=== PATIENT | male | born 1945 | race Caucasian/White ===

== ENCOUNTER 2023-05-31 07:35 | Outpatient (RCR) | payer MEDICARE, SELFPAY ==
[2023-05-31] MEDS: [UNRECOGNIZED DRUG - OTHER] 100 MG IV (08:18)
== END 2023-06-12 23:59 | disposition home or self-care (01) ==
LOC: OID 07:35
PROVIDERS: ATTENDING PHYSICIAN Specialist; FAMILY PHYSICIAN Internal Medicine
DX: Z94.0 Kidney transplant status (principal); T86.10 Unspecified complication of kidney transplant; Y93.89 Activity, other specified
CPT/HCPCS: 96365; J0485

== ENCOUNTER → 2023-06-28 06:15 | Outpatient (REF) | payer MEDICARE, SELFPAY | LOC: RAD 06:15 | PROVIDERS: ATTENDING PHYSICIAN Internal Medicine Critical Care Medicine | DX: R93.89 Abnormal findings on diagnostic imaging of other specified body structures (principal) | CPT/HCPCS: 71250 ==

== ENCOUNTER 2023-06-28 07:35 | Outpatient (RCR) | payer MEDICARE, SELFPAY ==
[2023-06-28 08:00] VITALS: BP 142/85
[2023-06-28] MEDS: [UNRECOGNIZED DRUG - OTHER] 100 MG IV (08:11)
== END 2023-06-28 11:14 | disposition home or self-care (01) ==
LOC: OID 07:35
PROVIDERS: ATTENDING PHYSICIAN Specialist; FAMILY PHYSICIAN Internal Medicine
DX: Z94.0 Kidney transplant status (principal); T86.10 Unspecified complication of kidney transplant; Y93.89 Activity, other specified
CPT/HCPCS: 96365; J0485

== ENCOUNTER → 2023-07-02 06:22 | Outpatient (REF) | payer MEDICARE, SELFPAY ==
[2023-07-02 06:57] LABS: % Basophils 1.3 % (0-2); % Immature Granulocytes 4.4 % (0-0.5); % Lymphocytes 13.6 % (20.5-51.1); % Monocytes 14.3 % (1.7-9.3); % Neutrophils 62.4 % (42.2-75.2); Absolute Basophils 0.1 10^3/uL (0-0.2); Absolute Eosinophils 0.3 10^3/uL (0-0.7); Absolute Immature Granulocytes 0.3 10^3/uL (0-0.05); Absolute Monocytes 1.1 10^3/uL (0.1-0.6); Absolute Neutrophils 4.7 10^3/uL (1.4-6.5); Hematocrit 45.9 % (39.0-52.0); Hemoglobin 15.4 g/dL (13.0-18.0); Mean Corp Hgb Conc. 33.6 g/dL (33.0-37.0); Mean Corpuscular Hgb 30.4 pg (27.0-31.0); Mean Corpuscular Volume 90.7 fL (80.0-94.0); Mean Platelet Volume 10.1 fL (7.4-10.4); Nucleated Red Blood Cells % 0 % (-); Platelet Count 167 10^3/uL (130-400); Red Blood Cell Count 5.06 10^6/uL (4.70-6.10); Red Cell Dist. Width 13.6 % (11.5-14.5); White Blood Cell Count 7.6 10^3/uL (4.8-10.8)
[2023-07-02 08:08] LABS: Protein/creatinine Ratio 5.2; Urine Protein 217 mg/dl
[2023-07-02 08:23] LABS: ALT (SGPT) 27 U/L (0-50); AST (SGOT) 35 U/L (17-59); Albumin 3.4 g/dl (3.5-5.0); Alkaline Phosphatase 50 U/L (38-126); Blood Urea Nitrogen 21 mg/dl (9-20); Calcium 9.3 mg/dl (8.4-10.2); Carbon Dioxide 25 mmol/L (22-30); Chloride 105 mmol/L (98-107); Glucose 88 mg/dl (70-99); Sodium 137 mmol/L (135-145); Total Bilirubin 0.6 mg/dl (0.2-1.3); Total Protein 5.6 g/dl (6.3-8.2); eGFR > 60.00
== END ==
LOC: REG 06:22
PROVIDERS: ATTENDING PHYSICIAN Internal Medicine Nephrology; FAMILY PHYSICIAN Internal Medicine; REFERRING PHYSICIAN Specialist
DX: T86.10 Unspecified complication of kidney transplant (principal)
CPT/HCPCS: 36415; 80053; 82570; 84156; 85025

== ENCOUNTER 2023-07-22 17:47 | Emergency (ER) | payer MEDICARE, SELFPAY ==
[2023-07-22 17:52] VITALS: BP 147/100
[2023-07-22 18:24] LABS: % Basophils 0.5 % (0-2); % Eosinophils 0.2 % (0-6); % Lymphocytes 3.1 % (20.5-51.1); % Monocytes 11.5 % (1.7-9.3); % Neutrophils 78.7 % (42.2-75.2); Absolute Basophils 0.1 10^3/uL (0-0.2); Absolute Immature Granulocytes 0.8 10^3/uL (0-0.05); Absolute Lymphocytes 0.4 10^3/uL (1.2-3.4); Absolute Monocytes 1.5 10^3/uL (0.1-0.6); Absolute Neutrophils 10.3 10^3/uL (1.4-6.5); Hematocrit 46.3 % (39.0-52.0); Hemoglobin 15.9 g/dL (13.0-18.0); Mean Corp Hgb Conc. 34.3 g/dL (33.0-37.0); Mean Corpuscular Hgb 30.3 pg (27.0-31.0); Mean Corpuscular Volume 88.4 fL (80.0-94.0); Nucleated Red Blood Cells % 0 % (-); Red Blood Cell Count 5.24 10^6/uL (4.70-6.10); Red Cell Dist. Width 13.5 % (11.5-14.5)
[2023-07-22 18:28] LABS: Lactic Acid 1.2 mmol/L (0.7-2.0)
[2023-07-22 18:30] LABS: ALT (SGPT) 41 U/L (0-50); AST (SGOT) 35 U/L (17-59); Albumin 3.8 g/dl (3.5-5.0); Alkaline Phosphatase 74 U/L (38-126); Blood Urea Nitrogen 23 mg/dl (9-20); Calcium 9.5 mg/dl (8.4-10.2); Carbon Dioxide 25 mmol/L (22-30); Chloride 104 mmol/L (98-107); Glucose 114 mg/dl (70-99); Potassium 3.9 mmol/L (3.5-5.1); Sodium 138 mmol/L (135-145); Total Bilirubin 0.6 mg/dl (0.2-1.3); Total Protein 6.2 g/dl (6.3-8.2); eGFR > 60.00
[2023-07-22 18:33] LABS: COVID-19 Antigen Negative (Negative)
[2023-07-22 18:44] LABS: Mean Platelet Volume 10.5 fL (7.4-10.4); Platelet Count 213 10^3/uL (130-400)
--- NOTE | 2023-07-22 22:26 | ED.GENMED ---
History of Present Illness
General
Chief Complaint: Fever
Source: patient
Exam Limitations: none
Time Seen by Provider: 07/22/23 22:05
Nursing documentation reviewed up to this point in time: agreed with
Travel History
Have you had any contact with someone who has COVID-19?: No
Do you have any symptoms of coronavirus? Fever > 100 degrees, chills, cough, shortness of breath, sore throat, loss of taste or smell, muscle aches, or headache?: Yes
Symptoms:: fever
History of Present Illness
History of Present Illness:
Patient with history of kidney transplant 5 years ago, presents to ED secondary to sudden onset of fever starting this afternoon, along with intermittent cough. Denies headache. Denies dizziness. Denies sore throat. Denies chest pain or
shortness of breath. Denies nausea, vomiting, or diarrhea. Denies loss of appetite. Patient unsure of recent sick contact. Denies recent travel. Denies recent change in medications or diet.
Past History
Past History
ED Past Medical History: Arrthythmia, HTN, Renal failure, Valvular disease and Other
ED Past Surgical History: Cardiac and Other
Social History
Tobacco: Non-smoker
Alcohol: None
Drug: None
Personal:
Living: with family
Review of Systems
Review of Systems
Allergies reviewed?: Yes
All Other Systems: ROS reviewed and negative except as documented in HPI and ROS
Constitutional: Reports fever
EENT: Reports no symptoms
Respiratory: Reports cough; Denies trouble breathing
Cardiac: Reports no symptoms; Denies chest pain
ABD/GI: Reports no symptoms; Denies nausea, vomiting or diarrhea
: Reports no symptoms
Musculoskeletal: Reports no symptoms
Skin: Reports no symptoms
Neurological: Reports no symptoms; Denies dizzy or headache
Phy Exam
Physical Exam
Physical Exam:
Physical Exam
General: no apparent distress, not acutely ill. febrile.
Head: nc/at. eomi
Neck: supple. no meningeal signs.
Heart: s1/s2 regular rate and rhythm, no murmur. equal radial pulses.
Lungs: no acute respiratory distress. clear bilaterally
Abdomen: normal bowel sounds. not tender.
Neuro: alert and oriented. no focal neurological deficits
Skin: no rash
Psychiatric: well kept. interactive and cooperative
Extremities: no edema. no calf tenderness.
Course
Orders/Labs/Results
Orders:
Orders
07/22/23 18:05
COVID-19 Antigen Urgent
Source: Nasal Swab
Complete Blood Count/With Diff Urgent
Comprehensive Metabolic Panel Urgent
Lactic Acid Urgent
Blood Culture Urgent
HOSSEIN Source: Blood/Venous
Specimen Description:
Influenza A+B Rapid Molecular Urgent
HOSSEIN Source: Nasal Swab
Specimen Description:
07/22/23 22:34
Oseltamivir Phosphate [Tamiflu] 75 mg PO NOW STA
07/22/23 22:35
Acetaminophen [Tylenol] 650 mg PO NOW STA
Abnormal Lab Results
07/22/23
18:05
WBC 13.0 H 10^3/uL
(4.8-10.8)
MPV 10.5 H fL
(7.4-10.4)
Abs Immat Gran (auto) 0.8 H 10^3/uL
(0-0.05)
Absolute Neuts (auto) 10.3 H 10^3/uL
(1.4-6.5)
Absolute Lymphs (auto) 0.4 L 10^3/uL
(1.2-3.4)
Absolute Monos (auto) 1.5 H 10^3/uL
(0.1-0.6)
Immature Gran % 6.0 H %
(0-0.5)
Neutrophils % 78.7 H %
(42.2-75.2)
Lymphocytes % 3.1 L %
(20.5-51.1)
Monocytes % 11.5 H %
(1.7-9.3)
BUN 23 H mg/dl
(9-20)
Glucose 114 H mg/dl
(70-99)
Total Protein 6.2 L g/dl
(6.3-8.2)
07/22/23 18:05
07/22/23 18:05
Vital Signs
Initial and Last Documented VS:
Initial Vital Signs
Temp Pulse Resp BP Pulse Ox
100.1 F 97 18 147/100 98
07/22/23 17:52 07/22/23 17:52 07/22/23 17:52 07/22/23 17:52 07/22/23 17:52
Last Documented Vital Signs
Temp Pulse Resp BP Pulse Ox
100.1 F 101 18 147/87 97
07/22/23 22:42 07/22/23 22:42 07/22/23 22:42 07/22/23 22:42 07/22/23 22:42
MDM/Problems Addressed
MDM/Problems Addressed:
Influenza positive. Otherwise, patient is hemodynamically stable, without evidence of dehydration nor any respiratory distress. Patient is a candidate for Tamiflu, which will be started.
*Critical Care Note
Total Time (30-74mins, 75-104mins- exclusive of procedures): Not Applicable
ED Attending Note
-
Portions of this chart may have been created with voice recognition software.� Occasional wrong word or��sound alike� substitutions may have occurred due to the inherent limitations of voice recognition software.
Discharge Plan
Departure
Patient Disposition: Home (Routine Discharge)
Date of Disposition: 07/22/23
Time of Disposition: 22:35
Patient with high blood pressure during this ER visit?: Yes
Condition: Good
Discharge Problem:
Influenza
Instructions: Flu, Adult (DC)
Prescriptions:
New
oseltamivir [Tamiflu] 75 mg capsule
75 mg PO BID Qty: 9 0RF
No Action
Eliquis 5 MG tablet
5 mg PO BID
metoprolol tartrate 25 MG tablet
25 mg PO BID
mycophenolate sodium 180 MG tablet,delayed release (DR/EC)
720 mg PO BID
amlodipine 5 mg tablet
5 mg PO DAILY
cholecalciferol (vitamin D3) [Vitamin D3] 10 mcg (400 unit) Capsule
10 mcg PO DAILY
losartan 50 mg Tablet
50 mg PO BID
aspirin 325 mg Tablet
325 mg PO BIDPRN PRN (Reason: mild pain)
Theragen Tablet
1 tab PO DAILY
prednisone 2.5 mg Tablet
2.5 mg PO BID
doxazosin 2 mg Tablet
2 mg PO BID
belatacept 250 mg Recon Soln
0 mg IV QMONTH
Patient Comments:
07/22/2023, pt. unsure of dose.
Activity Restrictions/Additional Instructions:
As discussed, please follow-up with your primary care physician with any further concerns. Your prescription has been sent electronically to [facility] pharmacy in [place].
Interventions
Interventions:
*Risk Screen - Suicide Last Done: 07/22/23 17:52
*General Assessment Last Done: 07/22/23 17:52
*Neglect/Abuse Screening Last Done: 07/22/23 17:52
*ED COVID-19 Vaccine History Last Done: 07/22/23 17:52
*Nursing Disposition Last Done: 07/22/23 23:20
ED- Neurological Assessment Last Done: 07/22/23 22:42
ED-Skin Assessment Last Done: 07/22/23 22:42
Discharge Date and Time
Discharge Date/Time: 07/22/23 23:21
[2023-07-22 22:42] VITALS: BP 147/87
[2023-07-22] MEDS: TAMIFLU 75 MG PO (23:12)
[2023-07-22] MEDS: TYLENOL 650 MG PO (23:12)
== END 2023-07-22 23:21 | disposition home or self-care (01) ==
LOC: EMR 17:47
PROVIDERS: Emergency Medicine; EMERGENCY PHYSICIAN Emergency Medicine; FAMILY PHYSICIAN Internal Medicine
DX: J11.1 Influenza due to unidentified influenza virus with other respiratory manifestations (principal); I10 Essential (primary) hypertension; Z11.52 Encounter for screening for COVID-19
CPT/HCPCS: 99283; 80053; 83605; 85025; 87040; 87502; 87811

== ENCOUNTER → 2023-07-24 14:12 | Outpatient (REF) | payer MEDICARE, SELFPAY | LOC: RAD 14:12 | PROVIDERS: ATTENDING PHYSICIAN Internal Medicine | DX: J11.1 Influenza due to unidentified influenza virus with other respiratory manifestations (principal) | CPT/HCPCS: 71046 ==

== ENCOUNTER → 2023-08-01 06:22 | Outpatient (REF) | payer MEDICARE, SELFPAY ==
[2023-08-01 07:18] LABS: % Basophils 0.6 % (0-2); % Eosinophils 2.1 % (0-6); % Immature Granulocytes 7.7 % (0-0.5); % Lymphocytes 5.7 % (20.5-51.1); % Monocytes 16.6 % (1.7-9.3); % Neutrophils 67.3 % (42.2-75.2); Absolute Basophils 0.1 10^3/uL (0-0.2); Absolute Eosinophils 0.2 10^3/uL (0-0.7); Absolute Immature Granulocytes 0.6 10^3/uL (0-0.05); Absolute Lymphocytes 0.4 10^3/uL (1.2-3.4); Absolute Monocytes 1.3 10^3/uL (0.1-0.6); Absolute Neutrophils 5.2 10^3/uL (1.4-6.5); Hematocrit 42.6 % (39.0-52.0); Hemoglobin 14.3 g/dL (13.0-18.0); Mean Corp Hgb Conc. 33.6 g/dL (33.0-37.0); Mean Corpuscular Hgb 29.9 pg (27.0-31.0); Mean Corpuscular Volume 89.1 fL (80.0-94.0); Mean Platelet Volume 10.3 fL (7.4-10.4); Nucleated Red Blood Cells % 0 % (-); Platelet Count 285 10^3/uL (130-400); Red Blood Cell Count 4.78 10^6/uL (4.70-6.10); Red Cell Dist. Width 13.4 % (11.5-14.5); White Blood Cell Count 7.7 10^3/uL (4.8-10.8)
[2023-08-01 07:38] LABS: Protein/creatinine Ratio 3.8; Urine Protein 135 mg/dl
[2023-08-01 07:41] LABS: ALT (SGPT) 70 U/L (0-50); AST (SGOT) 58 U/L (17-59); Albumin 3.2 g/dl (3.5-5.0); Alkaline Phosphatase 82 U/L (38-126); Blood Urea Nitrogen 18 mg/dl (9-20); Carbon Dioxide 23 mmol/L (22-30); Chloride 107 mmol/L (98-107); Glucose 108 mg/dl (70-99); Potassium 3.9 mmol/L (3.5-5.1); Sodium 137 mmol/L (135-145); Total Bilirubin 0.6 mg/dl (0.2-1.3); Total Protein 5.6 g/dl (6.3-8.2); eGFR > 60.00
== END ==
LOC: REG 06:22
PROVIDERS: ATTENDING PHYSICIAN Internal Medicine Nephrology; FAMILY PHYSICIAN Internal Medicine; REFERRING PHYSICIAN Specialist
DX: Z79.899 Other long term (current) drug therapy (principal); Z94.0 Kidney transplant status
CPT/HCPCS: 36415; 80053; 82570; 84156; 85025

== ENCOUNTER 2023-08-02 08:26 | Outpatient (RCR) | payer MEDICARE, SELFPAY ==
[2023-08-02] MEDS: [UNRECOGNIZED DRUG - OTHER] 100 MG IV (08:55)
[2023-08-02 08:59] VITALS: BP 133/83
== END 2023-08-02 14:49 | disposition home or self-care (01) ==
LOC: OID 08:26
PROVIDERS: ATTENDING PHYSICIAN Specialist; FAMILY PHYSICIAN Internal Medicine
DX: Z94.0 Kidney transplant status (principal); T86.10 Unspecified complication of kidney transplant; Y93.89 Activity, other specified
CPT/HCPCS: 96365; J0485

== ENCOUNTER → 2023-08-30 07:29 | Outpatient (REF) | payer MEDICARE, SELFPAY ==
[2023-08-30 09:02] LABS: Hematocrit 32.5 % (39.0-52.0); Hemoglobin 10.1 g/dL (13.0-18.0); Mean Corp Hgb Conc. 31.1 g/dL (33.0-37.0); Mean Corpuscular Hgb 28.8 pg (27.0-31.0); Mean Corpuscular Volume 92.6 fL (80.0-94.0); Mean Platelet Volume 9.6 fL (7.4-10.4); Platelet Count 345 10^3/uL (130-400); Red Blood Cell Count 3.51 10^6/uL (4.70-6.10); Red Cell Dist. Width 14.7 % (11.5-14.5); White Blood Cell Count 8.6 10^3/uL (4.8-10.8)
[2023-08-30 09:25] LABS: Absolute Neutrophils -Man Diff 5.8 10^3/uL (1.4-6.5); Band Neutrophils 13 % (0-3); Eosinophils 5 % (0-6); Lymphocytes 2 % (20-51); Metamyelocytes 8 % (-); Monocytes 17 % (2-9); Segmented Neutrophils 55 % (42-75); Urine Protein 115 mg/dl
[2023-08-30 09:26] LABS: Normal RBC Morphology Yes; Platelets Checked Yes; Total Cells Counted 100
[2023-08-30 09:29] LABS: ALT (SGPT) 49 U/L (0-50); AST (SGOT) 44 U/L (17-59); Albumin 3.3 g/dl (3.5-5.0); Alkaline Phosphatase 82 U/L (38-126); Blood Urea Nitrogen 18 mg/dl (9-20); Carbon Dioxide 24 mmol/L (22-30); Chloride 107 mmol/L (98-107); Glucose 109 mg/dl (70-99); Sodium 136 mmol/L (135-145); Total Bilirubin 0.3 mg/dl (0.2-1.3); Total Protein 5.6 g/dl (6.3-8.2); eGFR > 60.00
[2023-08-30 09:41] LABS: NT-proBNP 1930 pg/ml
[2023-08-30 10:00] LABS: TSH Reflex To Free T4 5.51 uIU/ml (0.47-4.68)
[2023-08-30 10:29] LABS: Free T4 0.89 ng/dl (0.78-2.19)
== END ==
LOC: REG 07:29
PROVIDERS: ATTENDING PHYSICIAN Internal Medicine Nephrology; FAMILY PHYSICIAN Internal Medicine
DX: R53.83 Other fatigue (principal); R06.02 Shortness of breath; R00.0 Tachycardia, unspecified; T86.10 Unspecified complication of kidney transplant
CPT/HCPCS: 36415; 80053; 82570; 83880; 84156; 84439; 84443; 85025

== ENCOUNTER 2023-08-30 08:25 | Outpatient (RCR) | payer MEDICARE, SELFPAY ==
[2023-08-30 08:35] VITALS: BP 122/71
[2023-08-30] MEDS: [UNRECOGNIZED DRUG - OTHER] 100 MG IV (08:49)
== END 2023-09-02 13:43 | disposition home or self-care (01) ==
LOC: OID 08:25
PROVIDERS: ATTENDING PHYSICIAN Specialist; FAMILY PHYSICIAN Internal Medicine
DX: Z94.0 Kidney transplant status (principal); T86.10 Unspecified complication of kidney transplant; Y93.89 Activity, other specified
CPT/HCPCS: 96365; J0485

== ENCOUNTER → 2023-09-19 06:22 | Outpatient (REF) | payer MEDICARE, SELFPAY ==
[2023-09-19 07:18] LABS: Hematocrit 37.5 % (39.0-52.0); Hemoglobin 11.6 g/dL (13.0-18.0); Mean Corp Hgb Conc. 30.9 g/dL (33.0-37.0); Mean Corpuscular Hgb 28.1 pg (27.0-31.0); Mean Corpuscular Volume 90.8 fL (80.0-94.0); Mean Platelet Volume 9.8 fL (7.4-10.4); Nucleated Red Blood Cells % 0 % (-); Platelet Count 348 10^3/uL (130-400); Red Blood Cell Count 4.13 10^6/uL (4.70-6.10); Red Cell Dist. Width 14.9 % (11.5-14.5); Reticulocyte Count 2.3 % (0.4-2.8); White Blood Cell Count 8.8 10^3/uL (4.8-10.8)
[2023-09-19 07:46] LABS: Iron 44 ug/dl (49-181)
[2023-09-19 08:01] LABS: Percent Saturation 15 % (20-50); Total Iron Binding Capacity 287 ug/dl (261-462)
[2023-09-19 12:34] LABS: Absolute Neutrophils -Man Diff 5.6 10^3/uL (1.4-6.5); Band Neutrophils 12 % (0-3); Eosinophils 4 % (0-6); Lymphocytes 13 % (20-51); Metamyelocytes 3 % (-); Monocytes 11 % (2-9); Myelocytes 4 % (-); Segmented Neutrophils 52 % (42-75)
[2023-09-19 12:35] LABS: Anisocytosis Slight; Macrocytosis FEW; Normal RBC Morphology No; Platelets Checked YES
[2023-09-19 12:36] LABS: Microcytosis FEW; Ovalocytes FEW; Total Cells Counted 100
== END ==
LOC: REG 06:22
PROVIDERS: ATTENDING PHYSICIAN Internal Medicine
DX: D64.89 Other specified anemias (principal); Z94.0 Kidney transplant status; N40.1 Benign prostatic hyperplasia with lower urinary tract symptoms; R53.83 Other fatigue; R79.89 Other specified abnormal findings of blood chemistry
CPT/HCPCS: 36415; 82728; 83540; 83550; 85025; 85045

== ENCOUNTER → 2023-09-20 06:27 | Outpatient (REF) | payer MEDICARE, SELFPAY ==
[2023-09-20 07:42] LABS: Urine Albumin 1+ (Neg - Trace); Urine Bilirubin Negative (Negative); Urine Character Clear (Clear); Urine Color Yellow; Urine Glucose Negative (Negative); Urine Ketone Negative (Negative); Urine Leukocyte 2+ (Negative); Urine Nitrite Negative (Negative); Urine Occult Blood Negative (Negative); Urine Urobilinogen Negative (Neg - 1+)
[2023-09-20 07:59] LABS: Urine Bacteria Few (Negative); Urine White Cell 90-100 /HPF (0-5)
== END ==
LOC: REG 06:27
PROVIDERS: ATTENDING PHYSICIAN Internal Medicine
DX: R30.0 Dysuria (principal)
CPT/HCPCS: 81003; 81015

== ENCOUNTER 2023-09-27 09:50 | Outpatient (RCR) | payer MEDICARE, SELFPAY ==
[2023-09-27 10:00] VITALS: BP 128/63
[2023-09-27] MEDS: [UNRECOGNIZED DRUG - OTHER] 100 MG IV (10:16)
== END 2023-09-30 08:27 | disposition home or self-care (01) ==
LOC: OID 09:50
PROVIDERS: ATTENDING PHYSICIAN Specialist; FAMILY PHYSICIAN Internal Medicine
DX: Z94.0 Kidney transplant status (principal); T86.10 Unspecified complication of kidney transplant; Y93.89 Activity, other specified
CPT/HCPCS: 96365; J0485

== ENCOUNTER → 2023-10-03 06:18 | Outpatient (REF) | payer MEDICARE, SELFPAY ==
[2023-10-03 07:02] LABS: % Basophils 1.7 % (0-2); % Eosinophils 3.9 % (0-6); % Immature Granulocytes 5.5 % (0-0.5); % Lymphocytes 13.2 % (20.5-51.1); % Monocytes 11.7 % (1.7-9.3); Absolute Basophils 0.1 10^3/uL (0-0.2); Absolute Eosinophils 0.3 10^3/uL (0-0.7); Absolute Immature Granulocytes 0.4 10^3/uL (0-0.05); Absolute Monocytes 0.9 10^3/uL (0.1-0.6); Hematocrit 40.5 % (39.0-52.0); Hemoglobin 12.6 g/dL (13.0-18.0); Mean Corp Hgb Conc. 31.1 g/dL (33.0-37.0); Mean Corpuscular Hgb 28.4 pg (27.0-31.0); Mean Corpuscular Volume 91.4 fL (80.0-94.0); Mean Platelet Volume 9.8 fL (7.4-10.4); Nucleated Red Blood Cells % 0 % (-); Platelet Count 218 10^3/uL (130-400); Red Blood Cell Count 4.43 10^6/uL (4.70-6.10); Red Cell Dist. Width 15.2 % (11.5-14.5); White Blood Cell Count 7.9 10^3/uL (4.8-10.8)
[2023-10-03 07:45] LABS: ALT (SGPT) 23 U/L (0-50); AST (SGOT) 28 U/L (17-59); Albumin 3.7 g/dl (3.5-5.0); Alkaline Phosphatase 71 U/L (38-126); Blood Urea Nitrogen 21 mg/dl (9-20); Calcium 9.3 mg/dl (8.4-10.2); Carbon Dioxide 22 mmol/L (22-30); Chloride 108 mmol/L (98-107); Glucose 99 mg/dl (70-99); Potassium 3.7 mmol/L (3.5-5.1); Sodium 142 mmol/L (135-145); Total Bilirubin 0.4 mg/dl (0.2-1.3); Total Protein 6.1 g/dl (6.3-8.2); eGFR > 60.00
[2023-10-03 07:54] LABS: Protein/creatinine Ratio 3.7; Urine Protein 105 mg/dl
== END ==
LOC: REG 06:18
PROVIDERS: ATTENDING PHYSICIAN Internal Medicine Nephrology; FAMILY PHYSICIAN Internal Medicine; REFERRING PHYSICIAN Specialist
DX: Z94.0 Kidney transplant status (principal); Z79.899 Other long term (current) drug therapy; T86.10 Unspecified complication of kidney transplant
CPT/HCPCS: 36415; 80053; 82570; 84156; 85025

== ENCOUNTER 2023-10-25 08:20 | Outpatient (RCR) | payer MEDICARE, SELFPAY ==
[2023-10-25 08:40] VITALS: BP 146/81
[2023-10-25] MEDS: [UNRECOGNIZED DRUG - OTHER] 100 MG IV (09:03)
== END 2023-11-10 23:59 | disposition home or self-care (01) ==
LOC: OID 08:20
PROVIDERS: ATTENDING PHYSICIAN Specialist; FAMILY PHYSICIAN Internal Medicine
DX: T86.10 Unspecified complication of kidney transplant (principal); Z94.0 Kidney transplant status; D84.9 Immunodeficiency, unspecified
CPT/HCPCS: 96365; J0485

== ENCOUNTER → 2023-10-28 06:21 | Outpatient (REF) | payer MEDICARE, SELFPAY ==
[2023-10-28 07:52] LABS: % Eosinophils 5.7 % (0-6); % Immature Granulocytes 3.6 % (0-0.5); % Lymphocytes 10.6 % (20.5-51.1); % Monocytes 13.7 % (1.7-9.3); % Neutrophils 65.4 % (42.2-75.2); Absolute Basophils 0.1 10^3/uL (0-0.2); Absolute Eosinophils 0.3 10^3/uL (0-0.7); Absolute Immature Granulocytes 0.2 10^3/uL (0-0.05); Absolute Lymphocytes 0.6 10^3/uL (1.2-3.4); Absolute Monocytes 0.7 10^3/uL (0.1-0.6); Absolute Neutrophils 3.4 10^3/uL (1.4-6.5); Hematocrit 44.6 % (39.0-52.0); Hemoglobin 14.3 g/dL (13.0-18.0); Mean Corp Hgb Conc. 32.1 g/dL (33.0-37.0); Mean Corpuscular Hgb 28.2 pg (27.0-31.0); Mean Platelet Volume 10.8 fL (7.4-10.4); Nucleated Red Blood Cells % 0 % (-); Platelet Count 188 10^3/uL (130-400); Red Blood Cell Count 5.07 10^6/uL (4.70-6.10); Red Cell Dist. Width 15.4 % (11.5-14.5); White Blood Cell Count 5.3 10^3/uL (4.8-10.8)
[2023-10-28 08:55] LABS: ALT (SGPT) 23 U/L (0-50); AST (SGOT) 39 U/L (17-59); Albumin 3.7 g/dl (3.5-5.0); Alkaline Phosphatase 71 U/L (38-126); Blood Urea Nitrogen 21 mg/dl (9-20); Calcium 9.1 mg/dl (8.4-10.2); Carbon Dioxide 24 mmol/L (22-30); Chloride 104 mmol/L (98-107); Glucose 97 mg/dl (70-99); Potassium 3.4 mmol/L (3.5-5.1); Sodium 139 mmol/L (135-145); Total Bilirubin 0.4 mg/dl (0.2-1.3); Total Protein 6.4 g/dl (6.3-8.2); eGFR > 60.00
[2023-10-28 09:03] LABS: Protein/creatinine Ratio 5.6; Urine Protein 407 mg/dl
== END ==
LOC: REG 06:21
PROVIDERS: ATTENDING PHYSICIAN Internal Medicine Nephrology; FAMILY PHYSICIAN Internal Medicine; REFERRING PHYSICIAN Specialist
DX: Z79.899 Other long term (current) drug therapy (principal); Z94.0 Kidney transplant status; T86.10 Unspecified complication of kidney transplant
CPT/HCPCS: 36415; 80053; 82570; 84156; 85025

== ENCOUNTER 2023-11-22 08:24 | Outpatient (RCR) | payer MEDICARE, SELFPAY ==
[2023-11-22 08:35] VITALS: BP 138/83
[2023-11-22] MEDS: [UNRECOGNIZED DRUG - OTHER] 100 MG IV (08:47)
== END 2023-11-25 13:12 | disposition home or self-care (01) ==
LOC: OID 08:24
PROVIDERS: ATTENDING PHYSICIAN Specialist; FAMILY PHYSICIAN Internal Medicine
DX: Z94.0 Kidney transplant status (principal); T86.10 Unspecified complication of kidney transplant; Y93.89 Activity, other specified; D84.9 Immunodeficiency, unspecified
CPT/HCPCS: 96365; J0485

== ENCOUNTER → 2023-11-25 06:17 | Outpatient (REF) | payer MEDICARE, SELFPAY ==
[2023-11-25 07:22] LABS: % Basophils 1.2 % (0-2); % Eosinophils 4.9 % (0-6); % Immature Granulocytes 2.2 % (0-0.5); % Lymphocytes 13.8 % (20.5-51.1); % Monocytes 13.1 % (1.7-9.3); % Neutrophils 64.8 % (42.2-75.2); Absolute Basophils 0.1 10^3/uL (0-0.2); Absolute Eosinophils 0.4 10^3/uL (0-0.7); Absolute Immature Granulocytes 0.2 10^3/uL (0-0.05); Absolute Neutrophils 4.9 10^3/uL (1.4-6.5); Hematocrit 44.4 % (39.0-52.0); Mean Corp Hgb Conc. 31.5 g/dL (33.0-37.0); Mean Corpuscular Hgb 27.8 pg (27.0-31.0); Mean Corpuscular Volume 88.3 fL (80.0-94.0); Nucleated Red Blood Cells % 0 % (-); Platelet Count 177 10^3/uL (130-400); Red Blood Cell Count 5.03 10^6/uL (4.70-6.10); White Blood Cell Count 7.6 10^3/uL (4.8-10.8)
[2023-11-25 07:46] LABS: Protein/creatinine Ratio 3.8; Urine Protein 175 mg/dl
[2023-11-25 08:02] LABS: ALT (SGPT) 21 U/L (0-50); AST (SGOT) 28 U/L (17-59); Alkaline Phosphatase 67 U/L (38-126); Blood Urea Nitrogen 26 mg/dl (9-20); Calcium 9.2 mg/dl (8.4-10.2); Carbon Dioxide 23 mmol/L (22-30); Chloride 106 mmol/L (98-107); Glucose 105 mg/dl (70-99); Potassium 3.5 mmol/L (3.5-5.1); Sodium 141 mmol/L (135-145); Total Bilirubin 0.3 mg/dl (0.2-1.3); Total Protein 6.3 g/dl (6.3-8.2); eGFR > 60.00
== END ==
LOC: REG 06:17
PROVIDERS: ATTENDING PHYSICIAN Internal Medicine Nephrology; FAMILY PHYSICIAN Internal Medicine; REFERRING PHYSICIAN Specialist
DX: T86.10 Unspecified complication of kidney transplant (principal); Z79.899 Other long term (current) drug therapy; Z94.0 Kidney transplant status
CPT/HCPCS: 36415; 80053; 82570; 84156; 85025

== ENCOUNTER 2023-12-20 09:52 | Outpatient (RCR) | payer MEDICARE, SELFPAY ==
[2023-12-20 10:00] VITALS: BP 132/76
[2023-12-20] MEDS: [UNRECOGNIZED DRUG - OTHER] 100 MG IV (10:35)
== END 2023-12-23 09:02 | disposition home or self-care (01) ==
LOC: OID 09:52
PROVIDERS: ATTENDING PHYSICIAN Specialist; FAMILY PHYSICIAN Internal Medicine
DX: Z94.0 Kidney transplant status (principal); T86.10 Unspecified complication of kidney transplant; Y93.89 Activity, other specified; D84.9 Immunodeficiency, unspecified
CPT/HCPCS: 96365; J0485

== ENCOUNTER → 2023-12-26 06:17 | Outpatient (REF) | payer MEDICARE, SELFPAY ==
[2023-12-26 07:49] LABS: % Basophils 1.2 % (0-2); % Eosinophils 4.1 % (0-6); % Immature Granulocytes 2.5 % (0-0.5); % Lymphocytes 14.3 % (20.5-51.1); % Monocytes 13.7 % (1.7-9.3); % Neutrophils 64.2 % (42.2-75.2); Absolute Basophils 0.1 10^3/uL (0-0.2); Absolute Eosinophils 0.3 10^3/uL (0-0.7); Absolute Immature Granulocytes 0.2 10^3/uL (0-0.05); Absolute Lymphocytes 1.2 10^3/uL (1.2-3.4); Absolute Monocytes 1.1 10^3/uL (0.1-0.6); Absolute Neutrophils 5.2 10^3/uL (1.4-6.5); Hematocrit 46.2 % (39.0-52.0); Hemoglobin 14.9 g/dL (13.0-18.0); Mean Corp Hgb Conc. 32.3 g/dL (33.0-37.0); Mean Corpuscular Hgb 28.3 pg (27.0-31.0); Mean Corpuscular Volume 87.7 fL (80.0-94.0); Mean Platelet Volume 10.3 fL (7.4-10.4); Nucleated Red Blood Cells % 0 % (-); Platelet Count 193 10^3/uL (130-400); Red Blood Cell Count 5.27 10^6/uL (4.70-6.10); Red Cell Dist. Width 16.5 % (11.5-14.5); White Blood Cell Count 8.1 10^3/uL (4.8-10.8)
[2023-12-26 08:29] LABS: Protein/creatinine Ratio 4.8; Urine Protein 222 mg/dl
[2023-12-26 08:35] LABS: ALT (SGPT) 22 U/L (0-50); AST (SGOT) 26 U/L (17-59); Albumin 3.7 g/dl (3.5-5.0); Alkaline Phosphatase 59 U/L (38-126); Blood Urea Nitrogen 26 mg/dl (9-20); Calcium 9.5 mg/dl (8.4-10.2); Carbon Dioxide 25 mmol/L (22-30); Chloride 108 mmol/L (98-107); Glucose 94 mg/dl (70-99); Potassium 3.7 mmol/L (3.5-5.1); Sodium 140 mmol/L (135-145); Total Bilirubin 0.4 mg/dl (0.2-1.3); Total Protein 5.9 g/dl (6.3-8.2); eGFR > 60.00
== END ==
LOC: REG 06:17
PROVIDERS: ATTENDING PHYSICIAN Internal Medicine Nephrology; FAMILY PHYSICIAN Internal Medicine
DX: T86.10 Unspecified complication of kidney transplant (principal)
CPT/HCPCS: 36415; 80053; 82570; 84156; 85025

== ENCOUNTER 2024-01-16 09:14 | Outpatient (RCR) | payer MEDICARE, SELFPAY ==
[2024-01-16 09:30] VITALS: BP 130/69
[2024-01-16] MEDS: [UNRECOGNIZED DRUG - OTHER] 100 MG IV (09:39)
== END 2024-01-17 09:03 | disposition home or self-care (01) ==
LOC: OID 09:14
PROVIDERS: ATTENDING PHYSICIAN Specialist; FAMILY PHYSICIAN Internal Medicine
DX: Z94.0 Kidney transplant status (principal); T86.10 Unspecified complication of kidney transplant; Y93.89 Activity, other specified; D84.9 Immunodeficiency, unspecified
CPT/HCPCS: 96365; J0485

== ENCOUNTER → 2024-01-27 06:20 | Outpatient (REF) | payer MEDICARE, SELFPAY ==
[2024-01-27 07:37] LABS: % Basophils 1.2 % (0-2); % Eosinophils 3.5 % (0-6); % Immature Granulocytes 3.5 % (0-0.5); % Monocytes 11.7 % (1.7-9.3); % Neutrophils 68.1 % (42.2-75.2); Absolute Basophils 0.1 10^3/uL (0-0.2); Absolute Eosinophils 0.3 10^3/uL (0-0.7); Absolute Immature Granulocytes 0.3 10^3/uL (0-0.05); Absolute Neutrophils 5.5 10^3/uL (1.4-6.5); Hemoglobin 14.6 g/dL (13.0-18.0); Mean Corp Hgb Conc. 32.4 g/dL (33.0-37.0); Mean Corpuscular Hgb 29.2 pg (27.0-31.0); Mean Platelet Volume 10.4 fL (7.4-10.4); Nucleated Red Blood Cells % 0 % (-); Platelet Count 193 10^3/uL (130-400); Red Cell Dist. Width 15.7 % (11.5-14.5); White Blood Cell Count 8.1 10^3/uL (4.8-10.8)
[2024-01-27 08:12] LABS: ALT (SGPT) 23 U/L (0-50); AST (SGOT) 29 U/L (17-59); Albumin 3.8 g/dl (3.5-5.0); Alkaline Phosphatase 59 U/L (38-126); Blood Urea Nitrogen 22 mg/dl (9-20); Calcium 9.5 mg/dl (8.4-10.2); Carbon Dioxide 24 mmol/L (22-30); Chloride 108 mmol/L (98-107); Glucose 102 mg/dl (70-99); Potassium 3.7 mmol/L (3.5-5.1); Sodium 143 mmol/L (135-145); Total Bilirubin 0.5 mg/dl (0.2-1.3); Total Protein 5.9 g/dl (6.3-8.2); eGFR > 60.00
[2024-01-27 08:34] LABS: Protein/creatinine Ratio 4.5; Urine Protein 197 mg/dl
== END ==
LOC: REG 06:20
PROVIDERS: ATTENDING PHYSICIAN Internal Medicine Nephrology; FAMILY PHYSICIAN Internal Medicine
DX: T86.10 Unspecified complication of kidney transplant (principal)
CPT/HCPCS: 36415; 80053; 82570; 84156; 85025

== ENCOUNTER → 2024-02-03 06:25 | Outpatient (REF) | payer MEDICARE, SELFPAY ==
[2024-02-03 09:11] LABS: PSA, Total - Screen 0.93 ng/ml (0.0-4.0)
== END ==
LOC: REG 06:25
PROVIDERS: ATTENDING PHYSICIAN Specialist; FAMILY PHYSICIAN Internal Medicine
DX: Z12.5 Encounter for screening for malignant neoplasm of prostate (principal)
CPT/HCPCS: 36415; G0103

== ENCOUNTER 2024-02-14 08:25 | Outpatient (RCR) | payer MEDICARE, SELFPAY ==
[2024-02-14] MEDS: [UNRECOGNIZED DRUG - OTHER] 100 MG IV (08:54)
== END 2024-02-14 10:38 | disposition home or self-care (01) ==
LOC: OID 08:25
PROVIDERS: ATTENDING PHYSICIAN Specialist; FAMILY PHYSICIAN Internal Medicine
DX: Z94.0 Kidney transplant status (principal); T86.10 Unspecified complication of kidney transplant; Y93.89 Activity, other specified; D84.9 Immunodeficiency, unspecified
CPT/HCPCS: 96365; J0485

== ENCOUNTER → 2024-03-24 06:19 | Outpatient (REF) | payer MEDICARE, SELFPAY ==
[2024-03-24 07:30] LABS: Hematocrit 46.9 % (39.0-52.0); Hemoglobin 15.2 g/dL (13.0-18.0); Mean Corp Hgb Conc. 32.4 g/dL (33.0-37.0); Mean Corpuscular Hgb 29.8 pg (27.0-31.0); Mean Platelet Volume 9.8 fL (7.4-10.4); Platelet Count 187 10^3/uL (130-400); Red Cell Dist. Width 14.1 % (11.5-14.5); White Blood Cell Count 8.2 10^3/uL (4.8-10.8)
[2024-03-24 07:42] LABS: ALT (SGPT) 30 U/L (0-50); AST (SGOT) 28 U/L (17-59); Albumin 3.6 g/dl (3.5-5.0); Alkaline Phosphatase 53 U/L (38-126); Blood Urea Nitrogen 22 mg/dl (9-20); Calcium 9.5 mg/dl (8.4-10.2); Carbon Dioxide 28 mmol/L (22-30); Chloride 106 mmol/L (98-107); Glucose 104 mg/dl (70-99); Potassium 3.7 mmol/L (3.5-5.1); Sodium 142 mmol/L (135-145); Total Bilirubin 0.4 mg/dl (0.2-1.3); Total Protein 5.8 g/dl (6.3-8.2); eGFR > 60.00
[2024-03-24 08:00] LABS: Protein/creatinine Ratio 5.2; Urine Protein 410 mg/dl
[2024-03-24 08:04] LABS: % Basophils 1.1 % (0-2); % Eosinophils 3.1 % (0-6); % Immature Granulocytes 5.3 % (0-0.5); % Lymphocytes 11.5 % (20.5-51.1); % Monocytes 11.4 % (1.7-9.3); % Neutrophils 67.6 % (42.2-75.2); Absolute Basophils 0.1 10^3/uL (0-0.2); Absolute Eosinophils 0.3 10^3/uL (0-0.7); Absolute Immature Granulocytes 0.4 10^3/uL (0-0.05); Absolute Lymphocytes 0.9 10^3/uL (1.2-3.4); Absolute Monocytes 0.9 10^3/uL (0.1-0.6); Absolute Neutrophils 5.5 10^3/uL (1.4-6.5); Nucleated Red Blood Cells % 0 % (-)
== END ==
LOC: REG 06:19
PROVIDERS: ATTENDING PHYSICIAN Internal Medicine Nephrology; FAMILY PHYSICIAN Internal Medicine; OTHER PHYSICIAN Specialist
DX: Z94.0 Kidney transplant status (principal); Z79.899 Other long term (current) drug therapy; T86.10 Unspecified complication of kidney transplant
CPT/HCPCS: 36415; 80053; 82570; 84156; 85025

== ENCOUNTER 2024-04-10 10:42 | Outpatient (RCR) | payer MEDICARE, SELFPAY ==
[2024-03-13 08:30] VITALS: BP 141/69
[2024-03-13] MEDS: [UNRECOGNIZED DRUG - OTHER] 100 MG IV (08:42)
[2024-04-10 10:45] VITALS: BP 139/65
[2024-04-10] MEDS: [UNRECOGNIZED DRUG - OTHER] 100 MG IV (11:01)
== END 2024-04-11 23:59 | disposition home or self-care (01) ==
LOC: OID 10:42
PROVIDERS: ATTENDING PHYSICIAN Specialist; FAMILY PHYSICIAN Internal Medicine
DX: T86.10 Unspecified complication of kidney transplant (principal); Y93.89 Activity, other specified; D84.9 Immunodeficiency, unspecified; Z94.0 Kidney transplant status
CPT/HCPCS: 96365; J0485

== ENCOUNTER → 2024-05-01 06:24 | Outpatient (REF) | payer MEDICARE, SELFPAY ==
[2024-05-01 07:25] LABS: % Basophils 1.4 % (0-2); % Immature Granulocytes 2.6 % (0-0.5); % Lymphocytes 12.9 % (20.5-51.1); % Monocytes 12.8 % (1.7-9.3); % Neutrophils 66.3 % (42.2-75.2); Absolute Basophils 0.1 10^3/uL (0-0.2); Absolute Eosinophils 0.3 10^3/uL (0-0.7); Absolute Immature Granulocytes 0.2 10^3/uL (0-0.05); Absolute Lymphocytes 0.9 10^3/uL (1.2-3.4); Absolute Monocytes 0.8 10^3/uL (0.1-0.6); Absolute Neutrophils 4.4 10^3/uL (1.4-6.5); Hematocrit 46.9 % (39.0-52.0); Hemoglobin 15.3 g/dL (13.0-18.0); Mean Corp Hgb Conc. 32.6 g/dL (33.0-37.0); Mean Corpuscular Hgb 30.2 pg (27.0-31.0); Mean Corpuscular Volume 92.5 fL (80.0-94.0); Mean Platelet Volume 10.5 fL (7.4-10.4); Nucleated Red Blood Cells % 0 % (-); Platelet Count 180 10^3/uL (130-400); Red Blood Cell Count 5.07 10^6/uL (4.70-6.10); Red Cell Dist. Width 13.6 % (11.5-14.5); White Blood Cell Count 6.6 10^3/uL (4.8-10.8)
[2024-05-01 07:32] LABS: ALT (SGPT) 26 U/L (0-50); AST (SGOT) 30 U/L (17-59); Albumin 3.5 g/dl (3.5-5.0); Alkaline Phosphatase 50 U/L (38-126); Blood Urea Nitrogen 17 mg/dl (9-20); Calcium 9.2 mg/dl (8.4-10.2); Carbon Dioxide 26 mmol/L (22-30); Chloride 106 mmol/L (98-107); Glucose 94 mg/dl (70-99); Potassium 3.5 mmol/L (3.5-5.1); Sodium 139 mmol/L (135-145); Total Bilirubin 0.5 mg/dl (0.2-1.3); Total Protein 5.7 g/dl (6.3-8.2); eGFR > 60.00
[2024-05-01 09:36] LABS: Protein/creatinine Ratio 3.7; Urine Protein 118 mg/dl
== END ==
LOC: REG 06:24
PROVIDERS: ATTENDING PHYSICIAN Specialist; FAMILY PHYSICIAN Internal Medicine
DX: T86.10 Unspecified complication of kidney transplant (principal); Z79.899 Other long term (current) drug therapy
CPT/HCPCS: 36415; 80053; 82570; 84156; 85025

== ENCOUNTER 2024-05-08 08:16 | Outpatient (RCR) | payer MEDICARE, SELFPAY ==
[2024-05-08 08:35] VITALS: BP 141/70
[2024-05-08] MEDS: [UNRECOGNIZED DRUG - OTHER] 100 MG IV (08:48)
== END 2024-05-11 11:00 | disposition home or self-care (01) ==
LOC: OID 08:16
PROVIDERS: ATTENDING PHYSICIAN Specialist; FAMILY PHYSICIAN Internal Medicine
DX: T86.10 Unspecified complication of kidney transplant (principal); Y93.89 Activity, other specified; D84.9 Immunodeficiency, unspecified; Z94.0 Kidney transplant status; R80.1 Persistent proteinuria, unspecified
CPT/HCPCS: 96365; J0485

== ENCOUNTER → 2024-05-19 07:42 | Outpatient (REF) | payer MEDICARE, SELFPAY | LOC: RCS 07:42 | PROVIDERS: ATTENDING PHYSICIAN Internal Medicine Cardiovascular Disease; FAMILY PHYSICIAN Internal Medicine | DX: I35.0 Nonrheumatic aortic (valve) stenosis (principal) | CPT/HCPCS: 93306 ==

== ENCOUNTER → 2024-05-30 07:03 | Outpatient (REF) | payer MEDICARE, SELFPAY ==
[2024-05-30 08:30] LABS: % Basophils 1.4 % (0-2); % Eosinophils 2.6 % (0-6); % Immature Granulocytes 1.4 % (0-0.5); % Lymphocytes 13.6 % (20.5-51.1); % Monocytes 12.7 % (1.7-9.3); % Neutrophils 68.3 % (42.2-75.2); Absolute Basophils 0.1 10^3/uL (0-0.2); Absolute Eosinophils 0.2 10^3/uL (0-0.7); Absolute Immature Granulocytes 0.1 10^3/uL (0-0.05); Absolute Lymphocytes 0.9 10^3/uL (1.2-3.4); Absolute Monocytes 0.9 10^3/uL (0.1-0.6); Absolute Neutrophils 4.7 10^3/uL (1.4-6.5); Hematocrit 48.6 % (39.0-52.0); Hemoglobin 15.7 g/dL (13.0-18.0); Mean Corp Hgb Conc. 32.3 g/dL (33.0-37.0); Mean Corpuscular Hgb 29.7 pg (27.0-31.0); Mean Corpuscular Volume 91.9 fL (80.0-94.0); Mean Platelet Volume 10.3 fL (7.4-10.4); Nucleated Red Blood Cells % 0 % (-); Platelet Count 200 10^3/uL (130-400); Red Blood Cell Count 5.29 10^6/uL (4.70-6.10); Red Cell Dist. Width 13.7 % (11.5-14.5); White Blood Cell Count 6.9 10^3/uL (4.8-10.8)
[2024-05-30 08:58] LABS: ALT (SGPT) 23 U/L (0-50); AST (SGOT) 27 U/L (17-59); Albumin 3.7 g/dl (3.5-5.0); Alkaline Phosphatase 57 U/L (38-126); Blood Urea Nitrogen 18 mg/dl (9-20); Calcium 9.3 mg/dl (8.4-10.2); Carbon Dioxide 27 mmol/L (22-30); Chloride 103 mmol/L (98-107); Glucose 92 mg/dl (70-99); Potassium 3.6 mmol/L (3.5-5.1); Sodium 138 mmol/L (135-145); Total Bilirubin 0.6 mg/dl (0.2-1.3); Total Protein 5.9 g/dl (6.3-8.2); eGFR > 60.00
[2024-05-30 09:19] LABS: Urine Protein 222 mg/dl
[2024-05-30 10:37] LABS: Intact PTH 106.2 pg/ml (13.6-85.8)
== END ==
LOC: REG 07:03
PROVIDERS: ATTENDING PHYSICIAN Specialist; FAMILY PHYSICIAN Internal Medicine
DX: Z94.0 Kidney transplant status (principal)
CPT/HCPCS: 36415; 80053; 82570; 83735; 83970; 84156; 85025

== ENCOUNTER 2024-06-05 08:14 | Outpatient (RCR) | payer MEDICARE, SELFPAY ==
[2024-06-05 08:41] VITALS: BP 134/84
[2024-06-05] MEDS: [UNRECOGNIZED DRUG - OTHER] 100 MG IV (09:04)
== END 2024-06-08 09:22 | disposition home or self-care (01) ==
LOC: OID 08:14
PROVIDERS: ATTENDING PHYSICIAN Specialist; FAMILY PHYSICIAN Internal Medicine
DX: T86.10 Unspecified complication of kidney transplant (principal); Y93.89 Activity, other specified; D84.9 Immunodeficiency, unspecified; Z94.0 Kidney transplant status
CPT/HCPCS: 96365; J0485

== ENCOUNTER 2024-07-03 08:20 | Outpatient (RCR) | payer MEDICARE, SELFPAY ==
[2024-07-03 08:50] VITALS: BP 153/79
[2024-07-03] MEDS: [UNRECOGNIZED DRUG - OTHER] 100 MG IV (08:57)
== END 2024-07-03 15:23 | disposition home or self-care (01) ==
LOC: OID 08:20
PROVIDERS: ATTENDING PHYSICIAN Specialist; FAMILY PHYSICIAN Internal Medicine
DX: T86.10 Unspecified complication of kidney transplant (principal); Y93.89 Activity, other specified; D84.9 Immunodeficiency, unspecified; Z94.0 Kidney transplant status
CPT/HCPCS: 96365; J0485

== ENCOUNTER → 2024-07-06 06:20 | Outpatient (REF) | payer MEDICARE, SELFPAY ==
[2024-07-06 08:13] LABS: ALT (SGPT) 119 U/L (0-50); AST (SGOT) 67 U/L (17-59); Albumin 3.1 g/dl (3.5-5.0); Alkaline Phosphatase 91 U/L (38-126); Blood Urea Nitrogen 15 mg/dl (9-20); Calcium 9.3 mg/dl (8.4-10.2); Carbon Dioxide 25 mmol/L (22-30); Chloride 104 mmol/L (98-107); Glucose 101 mg/dl (70-99); Magnesium 1.9 mg/dl (1.6-2.3); Potassium 3.7 mmol/L (3.5-5.1); Sodium 139 mmol/L (135-145); Total Bilirubin 0.9 mg/dl (0.2-1.3); Total Protein 5.5 g/dl (6.3-8.2); eGFR > 60.00
[2024-07-06 08:24] LABS: Protein/creatinine Ratio 4.9; Urine Protein 240 mg/dl
[2024-07-06 08:47] LABS: Hematocrit 42.9 % (39.0-52.0); Hemoglobin 14.3 g/dL (13.0-18.0); Mean Corp Hgb Conc. 33.3 g/dL (33.0-37.0); Mean Corpuscular Volume 89.9 fL (80.0-94.0); Mean Platelet Volume 10.2 fL (7.4-10.4); Platelet Count 335 10^3/uL (130-400); Red Blood Cell Count 4.77 10^6/uL (4.70-6.10); Red Cell Dist. Width 13.4 % (11.5-14.5); White Blood Cell Count 8.1 10^3/uL (4.8-10.8)
[2024-07-06 09:30] LABS: % Basophils 1.1 % (0-2); % Eosinophils 3.8 % (0-6); % Immature Granulocytes 7.4 % (0-0.5); % Lymphocytes 7.2 % (20.5-51.1); % Monocytes 11.2 % (1.7-9.3); % Neutrophils 69.3 % (42.2-75.2); Absolute Basophils 0.1 10^3/uL (0-0.2); Absolute Eosinophils 0.3 10^3/uL (0-0.7); Absolute Immature Granulocytes 0.6 10^3/uL (0-0.05); Absolute Lymphocytes 0.6 10^3/uL (1.2-3.4); Absolute Monocytes 0.9 10^3/uL (0.1-0.6); Absolute Neutrophils 5.6 10^3/uL (1.4-6.5); Nucleated Red Blood Cells % 0 % (-)
[2024-07-07 12:12] LABS: Intact PTH 75.2 pg/ml (13.6-85.8)
== END ==
LOC: REG 06:20
PROVIDERS: ATTENDING PHYSICIAN Specialist; FAMILY PHYSICIAN Internal Medicine
DX: Z94.0 Kidney transplant status (principal)
CPT/HCPCS: 36415; 80053; 82570; 83735; 83970; 84156; 85025

== ENCOUNTER → 2024-07-30 06:22 | Outpatient (REF) | payer MEDICARE, SELFPAY ==
[2024-07-30 07:37] LABS: % Basophils 1.2 % (0-2); % Eosinophils 3.9 % (0-6); % Immature Granulocytes 2.7 % (0-0.5); % Lymphocytes 9.3 % (20.5-51.1); % Monocytes 11.1 % (1.7-9.3); % Neutrophils 71.8 % (42.2-75.2); Absolute Basophils 0.1 10^3/uL (0-0.2); Absolute Eosinophils 0.3 10^3/uL (0-0.7); Absolute Immature Granulocytes 0.2 10^3/uL (0-0.05); Absolute Lymphocytes 0.7 10^3/uL (1.2-3.4); Absolute Monocytes 0.8 10^3/uL (0.1-0.6); Absolute Neutrophils 5.3 10^3/uL (1.4-6.5); Hematocrit 45.9 % (39.0-52.0); Hemoglobin 14.5 g/dL (13.0-18.0); Mean Corp Hgb Conc. 31.6 g/dL (33.0-37.0); Mean Corpuscular Hgb 29.4 pg (27.0-31.0); Mean Corpuscular Volume 92.9 fL (80.0-94.0); Mean Platelet Volume 10.5 fL (7.4-10.4); Nucleated Red Blood Cells % 0 % (-); Platelet Count 196 10^3/uL (130-400); Red Blood Cell Count 4.94 10^6/uL (4.70-6.10); Red Cell Dist. Width 15.3 % (11.5-14.5); White Blood Cell Count 7.4 10^3/uL (4.8-10.8)
[2024-07-30 07:51] LABS: ALT (SGPT) 27 U/L (0-50); AST (SGOT) 27 U/L (17-59); Albumin 3.4 g/dl (3.5-5.0); Alkaline Phosphatase 68 U/L (38-126); Blood Urea Nitrogen 18 mg/dl (9-20); Calcium 9.4 mg/dl (8.4-10.2); Carbon Dioxide 24 mmol/L (22-30); Chloride 107 mmol/L (98-107); Glucose 96 mg/dl (70-99); Magnesium 1.9 mg/dl (1.6-2.3); Potassium 3.6 mmol/L (3.5-5.1); Sodium 139 mmol/L (135-145); Total Bilirubin 0.7 mg/dl (0.2-1.3); Total Protein 5.7 g/dl (6.3-8.2); eGFR > 60.00
[2024-07-30 08:04] LABS: Urine Protein 232 mg/dl
[2024-08-01 13:11] LABS: Intact PTH 91.4 pg/ml (13.6-85.8)
== END ==
LOC: REG 06:22
PROVIDERS: ATTENDING PHYSICIAN Specialist; FAMILY PHYSICIAN Internal Medicine
DX: Z94.0 Kidney transplant status (principal)
CPT/HCPCS: 36415; 80053; 82570; 83735; 83970; 84156; 85025

== ENCOUNTER → 2024-07-31 07:11 | Outpatient (REF) | payer MEDICARE, SELFPAY ==
[2024-07-31 08:00] LABS: 24 Hour Urine Total Volume 1900 ml
[2024-07-31 08:29] LABS: Urine Protein 168 mg/dl (0-12)
== END ==
LOC: REG 07:11
PROVIDERS: ATTENDING PHYSICIAN Specialist; FAMILY PHYSICIAN Internal Medicine
DX: N18.4 Chronic kidney disease, stage 4 (severe) (principal); R80.9 Proteinuria, unspecified; D63.1 Anemia in chronic kidney disease; N40.1 Benign prostatic hyperplasia with lower urinary tract symptoms; N25.81 Secondary hyperparathyroidism of renal origin; Z94.0 Kidney transplant status; R80.1 Persistent proteinuria, unspecified
CPT/HCPCS: 81050; 84156

== ENCOUNTER 2024-07-31 08:15 | Outpatient (RCR) | payer MEDICARE, SELFPAY ==
[2024-07-31 08:20] VITALS: BP 154/75
[2024-07-31] MEDS: [UNRECOGNIZED DRUG - OTHER] 100 MG IV (08:35)
== END 2024-08-10 23:59 | disposition home or self-care (01) ==
LOC: OID 08:15
PROVIDERS: ATTENDING PHYSICIAN Specialist; FAMILY PHYSICIAN Internal Medicine
DX: T86.10 Unspecified complication of kidney transplant (principal); Y93.89 Activity, other specified; D84.9 Immunodeficiency, unspecified; Z94.0 Kidney transplant status
CPT/HCPCS: 96365; J0485

== ENCOUNTER → 2024-08-12 06:23 | Outpatient (REF) | payer MEDICARE, SELFPAY ==
[2024-08-13 12:37] LABS: Rubeola (Measles) IgG Positive
== END ==
LOC: REG 06:23
PROVIDERS: ATTENDING PHYSICIAN Specialist; FAMILY PHYSICIAN Internal Medicine
DX: D84.9 Immunodeficiency, unspecified (principal)
CPT/HCPCS: 36415; 86765

== ENCOUNTER → 2024-08-20 09:37 | Outpatient (REF) | payer MEDICARE, SELFPAY | LOC: HWRAD 09:37 | PROVIDERS: ATTENDING PHYSICIAN Internal Medicine Critical Care Medicine; FAMILY PHYSICIAN Internal Medicine | DX: R93.89 Abnormal findings on diagnostic imaging of other specified body structures (principal) | CPT/HCPCS: 71250 ==

== ENCOUNTER → 2024-08-27 06:23 | Outpatient (REF) | payer MEDICARE, SELFPAY ==
[2024-08-27 07:06] LABS: % Basophils 1.3 % (0-2); % Eosinophils 4.9 % (0-6); % Immature Granulocytes 2.1 % (0-0.5); % Lymphocytes 12.4 % (20.5-51.1); % Neutrophils 67.3 % (42.2-75.2); Absolute Basophils 0.1 10^3/uL (0-0.2); Absolute Eosinophils 0.4 10^3/uL (0-0.7); Absolute Immature Granulocytes 0.2 10^3/uL (0-0.05); Absolute Monocytes 0.9 10^3/uL (0.1-0.6); Absolute Neutrophils 5.2 10^3/uL (1.4-6.5); Hematocrit 42.6 % (39.0-52.0); Mean Corp Hgb Conc. 32.9 g/dL (33.0-37.0); Mean Corpuscular Hgb 30.2 pg (27.0-31.0); Mean Corpuscular Volume 91.8 fL (80.0-94.0); Mean Platelet Volume 9.9 fL (7.4-10.4); Nucleated Red Blood Cells % 0 % (-); Platelet Count 175 10^3/uL (130-400); Red Blood Cell Count 4.64 10^6/uL (4.70-6.10); Red Cell Dist. Width 14.9 % (11.5-14.5); White Blood Cell Count 7.7 10^3/uL (4.8-10.8)
[2024-08-27 07:07] LABS: Urine Albumin 3+ (Neg - Trace); Urine Bilirubin Negative (Negative); Urine Character Clear (Clear); Urine Color Yellow; Urine Glucose Negative (Negative); Urine Ketone Negative (Negative); Urine Leukocyte Negative (Negative); Urine Nitrite Negative (Negative); Urine Occult Blood Negative (Negative); Urine Specific Gravity 1.015 (<1.030); Urine Urobilinogen Negative (Neg - 1+)
[2024-08-27 07:16] LABS: Urine Red Blood Cell 0-2 /HPF (0-2); Urine Squamous Cell 0-2 /LPF (Few)
[2024-08-27 07:17] LABS: Urine Bacteria Few (Negative); Urine White Cell 0-2 /HPF (0-5)
[2024-08-27 07:32] LABS: ALT (SGPT) 26 U/L (0-50); AST (SGOT) 31 U/L (17-59); Albumin 3.3 g/dl (3.5-5.0); Alkaline Phosphatase 66 U/L (38-126); Blood Urea Nitrogen 23 mg/dl (9-20); Calcium 9.1 mg/dl (8.4-10.2); Carbon Dioxide 25 mmol/L (22-30); Chloride 110 mmol/L (98-107); Glucose 91 mg/dl (70-99); Magnesium 1.9 mg/dl (1.6-2.3); Phosphorus 3.5 mg/dl (2.5-4.5); Potassium 3.3 mmol/L (3.5-5.1); Sodium 142 mmol/L (135-145); Total Bilirubin 0.5 mg/dl (0.2-1.3); Total Protein 5.6 g/dl (6.3-8.2); eGFR > 60.00
[2024-08-27 08:14] LABS: Urine Protein 287 mg/dl
[2024-08-27 15:27] LABS: Microalbumin, Random Urine > 57.0 mg/dl (0.6-1.7)
== END ==
LOC: REG 06:23
PROVIDERS: ATTENDING PHYSICIAN Specialist; FAMILY PHYSICIAN Internal Medicine
DX: Z94.0 Kidney transplant status (principal); R80.1 Persistent proteinuria, unspecified
CPT/HCPCS: 36415; 80053; 81003; 81015; 82043; 82570; 83735; 84100; 84156; 85025

== ENCOUNTER 2024-08-28 08:20 | Outpatient (RCR) | payer MEDICARE, SELFPAY ==
[2024-08-28 08:45] VITALS: BP 139/74
[2024-08-28] MEDS: [UNRECOGNIZED DRUG - OTHER] 100 MG IV (08:58)
== END 2024-08-31 08:27 | disposition home or self-care (01) ==
LOC: OID 08:20
PROVIDERS: ATTENDING PHYSICIAN Specialist; FAMILY PHYSICIAN Internal Medicine
DX: T86.10 Unspecified complication of kidney transplant (principal); Y93.89 Activity, other specified; D84.9 Immunodeficiency, unspecified; Z94.0 Kidney transplant status
CPT/HCPCS: 96365; J0485

== ENCOUNTER 2024-09-25 08:17 | Outpatient (RCR) | payer MEDICARE, SELFPAY ==
[2024-09-25 08:30] VITALS: BP 160/86
[2024-09-25] MEDS: [UNRECOGNIZED DRUG - OTHER] 100 MG IV (08:45)
== END 2024-09-28 09:08 | disposition home or self-care (01) ==
LOC: OID 08:17
PROVIDERS: ATTENDING PHYSICIAN Specialist; FAMILY PHYSICIAN Internal Medicine
DX: Z48.22 Encounter for aftercare following kidney transplant (principal); D84.9 Immunodeficiency, unspecified; Z94.0 Kidney transplant status
CPT/HCPCS: 96365; J0485

== ENCOUNTER → 2024-09-29 06:20 | Outpatient (REF) | payer MEDICARE, SELFPAY ==
[2024-09-29 07:13] LABS: % Basophils 0.8 % (0-2); % Eosinophils 2.8 % (0-6); % Immature Granulocytes 1.7 % (0-0.5); % Lymphocytes 9.2 % (20.5-51.1); % Monocytes 12.1 % (1.7-9.3); % Neutrophils 73.4 % (42.2-75.2); Absolute Basophils 0.1 10^3/uL (0-0.2); Absolute Eosinophils 0.2 10^3/uL (0-0.7); Absolute Immature Granulocytes 0.1 10^3/uL (0-0.05); Absolute Lymphocytes 0.8 10^3/uL (1.2-3.4); Absolute Neutrophils 6.1 10^3/uL (1.4-6.5); Hematocrit 42.4 % (39.0-52.0); Hemoglobin 13.9 g/dL (13.0-18.0); Mean Corp Hgb Conc. 32.8 g/dL (33.0-37.0); Mean Corpuscular Volume 91.4 fL (80.0-94.0); Mean Platelet Volume 10.1 fL (7.4-10.4); Nucleated Red Blood Cells % 0 % (-); Platelet Count 187 10^3/uL (130-400); Red Blood Cell Count 4.64 10^6/uL (4.70-6.10); Red Cell Dist. Width 14.2 % (11.5-14.5); White Blood Cell Count 8.3 10^3/uL (4.8-10.8)
[2024-09-29 07:44] LABS: ALT (SGPT) 22 U/L (0-50); AST (SGOT) 25 U/L (17-59); Albumin 3.6 g/dl (3.5-5.0); Alkaline Phosphatase 62 U/L (38-126); Blood Urea Nitrogen 23 mg/dl (9-20); Calcium 9.7 mg/dl (8.4-10.2); Carbon Dioxide 27 mmol/L (22-30); Chloride 109 mmol/L (98-107); Glucose 91 mg/dl (70-99); Magnesium 1.9 mg/dl (1.6-2.3); Potassium 3.6 mmol/L (3.5-5.1); Sodium 143 mmol/L (135-145); Total Bilirubin 0.3 mg/dl (0.2-1.3); Total Protein 5.9 g/dl (6.3-8.2); eGFR 51.13
[2024-09-29 08:20] LABS: Protein/creatinine Ratio 5.1; Urine Protein 353 mg/dl
[2024-09-30 09:24] LABS: Intact PTH 88.4 pg/ml (13.6-85.8)
== END ==
LOC: REG 06:20
PROVIDERS: ATTENDING PHYSICIAN Specialist; FAMILY PHYSICIAN Internal Medicine
DX: Z94.0 Kidney transplant status (principal)
CPT/HCPCS: 36415; 80053; 82570; 83735; 83970; 84156; 85025

== ENCOUNTER 2024-10-23 08:20 | Outpatient (RCR) | payer MEDICARE, SELFPAY ==
[2024-10-23] MEDS: [UNRECOGNIZED DRUG - OTHER] 100 MG IV (09:03)
[2024-10-23 09:06] VITALS: BP 136/79
== END 2024-10-26 08:32 | disposition home or self-care (01) ==
LOC: OID 08:20
PROVIDERS: ATTENDING PHYSICIAN Specialist; FAMILY PHYSICIAN Internal Medicine
DX: T86.10 Unspecified complication of kidney transplant (principal); Y93.89 Activity, other specified; D84.9 Immunodeficiency, unspecified; R80.1 Persistent proteinuria, unspecified; Z94.0 Kidney transplant status
CPT/HCPCS: 96365; J0485

== ENCOUNTER → 2024-10-29 06:28 | Outpatient (REF) | payer MEDICARE, SELFPAY ==
[2024-10-29 07:41] LABS: Hematocrit 41.4 % (39.0-52.0); Hemoglobin 13.6 g/dL (13.0-18.0); Mean Corp Hgb Conc. 32.9 g/dL (33.0-37.0); Mean Corpuscular Hgb 29.9 pg (27.0-31.0); Mean Platelet Volume 10.4 fL (7.4-10.4); Platelet Count 213 10^3/uL (130-400); Red Blood Cell Count 4.55 10^6/uL (4.70-6.10); Red Cell Dist. Width 13.9 % (11.5-14.5); White Blood Cell Count 11.8 10^3/uL (4.8-10.8)
[2024-10-29 07:57] LABS: ALT (SGPT) 30 U/L (0-50); AST (SGOT) 28 U/L (17-59); Albumin 3.4 g/dl (3.5-5.0); Alkaline Phosphatase 58 U/L (38-126); Blood Urea Nitrogen 26 mg/dl (9-20); Calcium 9.2 mg/dl (8.4-10.2); Carbon Dioxide 24 mmol/L (22-30); Chloride 112 mmol/L (98-107); Glucose 101 mg/dl (70-99); Magnesium 1.9 mg/dl (1.6-2.3); Potassium 3.5 mmol/L (3.5-5.1); Sodium 144 mmol/L (135-145); Total Bilirubin 0.3 mg/dl (0.2-1.3); Total Protein 5.7 g/dl (6.3-8.2); eGFR 51.13
[2024-10-29 09:02] LABS: % Basophils 0.6 % (0-2); % Eosinophils 0.6 % (0-6); % Immature Granulocytes 5.8 % (0-0.5); % Lymphocytes 6.3 % (20.5-51.1); % Monocytes 7.4 % (1.7-9.3); % Neutrophils 79.3 % (42.2-75.2); Absolute Basophils 0.1 10^3/uL (0-0.2); Absolute Eosinophils 0.1 10^3/uL (0-0.7); Absolute Immature Granulocytes 0.7 10^3/uL (0-0.05); Absolute Lymphocytes 0.8 10^3/uL (1.2-3.4); Absolute Monocytes 0.9 10^3/uL (0.1-0.6); Absolute Neutrophils 9.4 10^3/uL (1.4-6.5); Nucleated Red Blood Cells % 0 % (-)
[2024-10-29 11:41] LABS: Protein/creatinine Ratio 6.9; Urine Protein 624 mg/dl
[2024-10-31 09:45] LABS: Intact PTH 134.2 pg/ml (13.6-85.8)
== END ==
LOC: REG 06:28
PROVIDERS: ATTENDING PHYSICIAN Specialist; FAMILY PHYSICIAN Internal Medicine
DX: Z94.0 Kidney transplant status (principal)
CPT/HCPCS: 36415; 80053; 82570; 83735; 83970; 84156; 85025

== ENCOUNTER 2024-11-16 06:26 | Day surgery (SDC) | payer MEDICARE, SELFPAY | END 2024-11-16 09:41 | disposition home or self-care (01) | LOC: GI 06:26 | PROVIDERS: ATTENDING PHYSICIAN Student in an Organized Health Care Education/Training Program | DX: Z12.11 Encounter for screening for malignant neoplasm of colon (principal); D12.0 Benign neoplasm of cecum; K57.30 Diverticulosis of large intestine without perforation or abscess without bleeding; K55.20 Angiodysplasia of colon without hemorrhage | CPT/HCPCS: 45385; 88305 ==

== ENCOUNTER 2024-11-17 06:25 | Day surgery (SDC) | payer MEDICARE, SELFPAY | END 2024-11-17 15:17 | disposition home or self-care (01) | LOC: GI 06:25 | PROVIDERS: ATTENDING PHYSICIAN Internal Medicine Gastroenterology | DX: Z12.11 Encounter for screening for malignant neoplasm of colon (principal); K57.30 Diverticulosis of large intestine without perforation or abscess without bleeding; K64.8 Other hemorrhoids; K55.20 Angiodysplasia of colon without hemorrhage | CPT/HCPCS: G0121 ==

== ENCOUNTER 2024-11-20 08:13 | Outpatient (RCR) | payer MEDICARE, SELFPAY ==
[2024-11-20] MEDS: [UNRECOGNIZED DRUG - OTHER] 100 MG IV (09:01)
[2024-11-20 09:04] VITALS: BP 149/85
== END 2024-11-23 10:24 | disposition home or self-care (01) ==
LOC: OID 08:13
PROVIDERS: ATTENDING PHYSICIAN Specialist; FAMILY PHYSICIAN Internal Medicine
DX: T86.10 Unspecified complication of kidney transplant (principal); Y93.89 Activity, other specified; D84.9 Immunodeficiency, unspecified; Z94.0 Kidney transplant status
CPT/HCPCS: 96365; J0485

== ENCOUNTER → 2024-11-30 06:19 | Outpatient (REF) | payer MEDICARE, SELFPAY ==
[2024-11-30 07:25] LABS: Hematocrit 42.3 % (39.0-52.0); Hemoglobin 14.1 g/dL (13.0-18.0); Mean Corp Hgb Conc. 33.3 g/dL (33.0-37.0); Mean Corpuscular Volume 89.2 fL (80.0-94.0); Nucleated Red Blood Cells % 0 % (-); Platelet Count 187 10^3/uL (130-400); Red Cell Dist. Width 14.1 % (11.5-14.5)
[2024-11-30 08:01] LABS: ALT (SGPT) 22 U/L (0-50); AST (SGOT) 23 U/L (17-59); Albumin 3.7 g/dl (3.5-5.0); Alkaline Phosphatase 57 U/L (38-126); Blood Urea Nitrogen 27 mg/dl (9-20); Calcium 9.1 mg/dl (8.4-10.2); Carbon Dioxide 27 mmol/L (22-30); Chloride 108 mmol/L (98-107); Glucose 100 mg/dl (70-99); Magnesium 1.9 mg/dl (1.6-2.3); Potassium 3.7 mmol/L (3.5-5.1); Sodium 140 mmol/L (135-145); Total Protein 5.9 g/dl (6.3-8.2); eGFR 33.32
== END ==
LOC: REG 06:19
PROVIDERS: ATTENDING PHYSICIAN Specialist; FAMILY PHYSICIAN Internal Medicine
DX: Z94.0 Kidney transplant status (principal); I10 Essential (primary) hypertension
CPT/HCPCS: 36415; 80053; 82570; 83735; 83970; 84156; 85025

== ENCOUNTER → 2024-12-08 11:01 | Outpatient (REF) | payer MEDICARE, SELFPAY | LOC: HWRAD 11:01 | PROVIDERS: ATTENDING PHYSICIAN Internal Medicine Critical Care Medicine; FAMILY PHYSICIAN Internal Medicine | DX: R91.1 Solitary pulmonary nodule (principal); R93.89 Abnormal findings on diagnostic imaging of other specified body structures | CPT/HCPCS: 71250 ==

== ENCOUNTER → 2024-12-09 06:19 | Outpatient (REF) | payer MEDICARE, SELFPAY ==
[2024-12-09 07:04] LABS: Urine Character Clear (Clear)
[2024-12-09 07:17] LABS: Albumin 3.9 g/dl (3.5-5.0); Blood Urea Nitrogen 45 mg/dl (9-20); Calcium 9.0 mg/dl (8.4-10.2); Carbon Dioxide 23 mmol/L (22-30); Chloride 110 mmol/L (98-107); Glucose 103 mg/dl (70-99); Potassium 3.7 mmol/L (3.5-5.1); Sodium 141 mmol/L (135-145); eGFR 21.34
[2024-12-09 07:18] LABS: Microalb - Urine Creatinine 49.800 mg/dl
[2024-12-09 07:28] LABS: Urine Squamous Cell 0-2 /LPF (Few)
[2024-12-09 07:30] LABS: Urine Red Blood Cell 0-2 /HPF (0-2)
[2024-12-09 07:32] LABS: Vitamin D, 25-OH*** 25.2 ng/mL (30-80)
[2024-12-09 08:54] LABS: Microalbumin, Random Urine > 57.0 mg/dl (0.6-1.7)
[2024-12-11 21:17] LABS: Aldosterone/Renin Activ Ratio 3.2 ratio (<=25.0); Renin Activity Results 5.4 ng/mL/hr
[2024-12-12 02:01] LABS: Serine Protease-3, IgG 1 AU/mL (0-19)
== END ==
LOC: REG 06:19
PROVIDERS: ATTENDING PHYSICIAN Specialist
DX: N17.0 Acute kidney failure with tubular necrosis (principal); I10 Essential (primary) hypertension; Z79.899 Other long term (current) drug therapy
CPT/HCPCS: 36415; 80069; 81003; 81015; 82043; 82088; 82306; 82570; 83516; 84156; 84244

== ENCOUNTER 2024-12-18 08:12 | Outpatient (RCR) | payer MEDICARE, SELFPAY ==
[2024-12-18 08:35] VITALS: BP 151/74
[2024-12-18] MEDS: [UNRECOGNIZED DRUG - OTHER] 100 MG IV (08:53)
== END 2024-12-21 09:59 | disposition home or self-care (01) ==
LOC: OID 08:12
PROVIDERS: ATTENDING PHYSICIAN Specialist; FAMILY PHYSICIAN Internal Medicine
DX: T86.10 Unspecified complication of kidney transplant (principal); Y93.89 Activity, other specified; D84.9 Immunodeficiency, unspecified; Z94.0 Kidney transplant status; R80.1 Persistent proteinuria, unspecified; E61.1 Iron deficiency
CPT/HCPCS: 96365; J0485

== ENCOUNTER → 2024-12-23 06:20 | Outpatient (REF) | payer MEDICARE, SELFPAY ==
[2024-12-23 08:16] LABS: Hematocrit 33.7 % (39.0-52.0); Hemoglobin 10.9 g/dL (13.0-18.0); Mean Corp Hgb Conc. 32.3 g/dL (33.0-37.0); Mean Corpuscular Volume 91.3 fL (80.0-94.0); Nucleated Red Blood Cells % 0 % (-); Platelet Count 187 10^3/uL (130-400); Red Cell Dist. Width 13.7 % (11.5-14.5)
[2024-12-23 09:18] LABS: ALT (SGPT) 20 U/L (0-50); AST (SGOT) 21 U/L (17-59); Albumin 3.7 g/dl (3.5-5.0); Alkaline Phosphatase 52 U/L (38-126); Blood Urea Nitrogen 38 mg/dl (9-20); Calcium 8.5 mg/dl (8.4-10.2); Carbon Dioxide 20 mmol/L (22-30); Chloride 112 mmol/L (98-107); Glucose 91 mg/dl (70-99); Magnesium 1.6 mg/dl (1.6-2.3); Potassium 4.1 mmol/L (3.5-5.1); Sodium 140 mmol/L (135-145); Total Protein 5.8 g/dl (6.3-8.2); eGFR 23.25
== END ==
LOC: REG 06:20
PROVIDERS: ATTENDING PHYSICIAN Specialist; FAMILY PHYSICIAN Internal Medicine
DX: Z94.0 Kidney transplant status (principal)
CPT/HCPCS: 36415; 80053; 82570; 83735; 83970; 84156; 85025

== ENCOUNTER 2025-01-15 08:25 | Outpatient (RCR) | payer MEDICARE, SELFPAY ==
[2025-01-12 13:20] VITALS: BP 137/84
[2025-01-12] MEDS: SOLU-MEDROL 258 MG IV (13:27)
[2025-01-13 11:54] VITALS: BP 98/59
[2025-01-13] MEDS: SOLU-MEDROL 258 MG IV (11:59)
[2025-01-15 08:46] VITALS: BP 118/76
[2025-01-15] MEDS: [UNRECOGNIZED DRUG - OTHER] 100 MG IV (09:05)
== END 2025-01-18 10:33 | disposition home or self-care (01) ==
LOC: OID 08:25
PROVIDERS: ATTENDING PHYSICIAN Specialist; FAMILY PHYSICIAN Internal Medicine
DX: T86.10 Unspecified complication of kidney transplant (principal); Y93.89 Activity, other specified; N18.6 End stage renal disease; D84.9 Immunodeficiency, unspecified; I48.20 Chronic atrial fibrillation, unspecified; Z94.0 Kidney transplant status; R80.1 Persistent proteinuria, unspecified
CPT/HCPCS: 96365; J0485

== ENCOUNTER → 2025-02-09 06:23 | Outpatient (REF) | payer MEDICARE, SELFPAY ==
[2025-02-09 07:40] LABS: Urine Character Clear (Clear)
[2025-02-09 07:57] LABS: Hematocrit 26.4 % (39.0-52.0); Hemoglobin 8.5 g/dL (13.0-18.0); Mean Corp Hgb Conc. 32.2 g/dL (33.0-37.0); Mean Corpuscular Volume 94.0 fL (80.0-94.0); Platelet Count 326 10^3/uL (130-400); Red Cell Dist. Width 15.4 % (11.5-14.5)
[2025-02-09 07:58] LABS: Urine Red Blood Cell 0-2 /HPF (0-2); Urine White Cell 0-2 /HPF (0-5)
[2025-02-09 07:59] LABS: ALT (SGPT) 87 U/L (0-50); AST (SGOT) 43 U/L (17-59); Albumin 3.5 g/dl (3.5-5.0); Alkaline Phosphatase 61 U/L (38-126); Blood Urea Nitrogen 42 mg/dl (9-20); Calcium 9.2 mg/dl (8.4-10.2); Carbon Dioxide 21 mmol/L (22-30); Chloride 109 mmol/L (98-107); Glucose 110 mg/dl (70-99); Potassium 3.9 mmol/L (3.5-5.1); Sodium 139 mmol/L (135-145); Total Protein 5.7 g/dl (6.3-8.2); eGFR 23.25
[2025-02-09 10:29] LABS: Absolute Neutrophils -Man Diff 7.3 10^3/uL (1.4-6.5)
[2025-02-09 10:30] LABS: Normal RBC Morphology Yes; Platelets Checked Yes; Total Cells Counted 100
[2025-02-09 11:23] LABS: Iron 39 ug/dl (49-181)
[2025-02-09 11:33] LABS: Total Iron Binding Capacity 216 ug/dl (261-462)
== END ==
LOC: REG 06:23
PROVIDERS: ATTENDING PHYSICIAN Specialist; FAMILY PHYSICIAN Internal Medicine
DX: N17.0 Acute kidney failure with tubular necrosis (principal); I10 Essential (primary) hypertension; R53.83 Other fatigue; R03.1 Nonspecific low blood-pressure reading; D63.1 Anemia in chronic kidney disease
CPT/HCPCS: 36415; 80053; 81003; 81015; 82570; 83540; 83550; 83970; 84100; 84156; 85025

== ENCOUNTER → 2025-02-23 06:23 | Outpatient (REF) | payer MEDICARE, SELFPAY ==
[2025-02-23 07:09] LABS: Hematocrit 25.6 % (39.0-52.0); Hemoglobin 8.1 g/dL (13.0-18.0); Mean Corp Hgb Conc. 31.6 g/dL (33.0-37.0); Mean Corpuscular Volume 95.2 fL (80.0-94.0); Nucleated Red Blood Cells % 0 % (-); Platelet Count 270 10^3/uL (130-400); Red Cell Dist. Width 16.1 % (11.5-14.5)
[2025-02-23 07:43] LABS: ALT (SGPT) 30 U/L (0-50); AST (SGOT) 20 U/L (17-59); Albumin 3.4 g/dl (3.5-5.0); Alkaline Phosphatase 64 U/L (38-126); Blood Urea Nitrogen 55 mg/dl (9-20); Calcium 8.8 mg/dl (8.4-10.2); Carbon Dioxide 19 mmol/L (22-30); Chloride 110 mmol/L (98-107); Glucose 117 mg/dl (70-99); Potassium 3.4 mmol/L (3.5-5.1); Sodium 139 mmol/L (135-145); Total Protein 5.6 g/dl (6.3-8.2); eGFR 18.27
[2025-02-23 08:07] LABS: Urine Character Clear (Clear)
[2025-02-23 09:33] LABS: Urine Squamous Cell 0-2 /LPF (Few)
[2025-02-23 09:34] LABS: Urine Red Blood Cell 0-2 /HPF (0-2); Urine White Cell 0-2 /HPF (0-5)
== END ==
LOC: REG 06:23
PROVIDERS: ATTENDING PHYSICIAN Specialist; FAMILY PHYSICIAN Internal Medicine
DX: N17.0 Acute kidney failure with tubular necrosis (principal); I10 Essential (primary) hypertension; R53.83 Other fatigue; R03.1 Nonspecific low blood-pressure reading
CPT/HCPCS: 36415; 80053; 81003; 81015; 82570; 83970; 84100; 84156; 85025

== ENCOUNTER → 2025-02-24 08:43 | Outpatient (REF) | payer MEDICARE, SELFPAY | LOC: HWRAD 08:43 | PROVIDERS: ATTENDING PHYSICIAN Nurse Practitioner Family; FAMILY PHYSICIAN Internal Medicine | DX: R91.1 Solitary pulmonary nodule (principal) | CPT/HCPCS: 71250 ==

== ENCOUNTER → 2025-03-01 09:35 | Outpatient (REF) | payer MEDICARE, SELFPAY | LOC: RAD 09:35 | PROVIDERS: ATTENDING PHYSICIAN Specialist; FAMILY PHYSICIAN Internal Medicine | DX: Z94.0 Kidney transplant status (principal) | CPT/HCPCS: 76776 ==

== ENCOUNTER → 2025-03-10 06:21 | Outpatient (REF) | payer MEDICARE, SELFPAY ==
[2025-03-10 07:19] LABS: Hematocrit 27.5 % (39.0-52.0); Hemoglobin 8.3 g/dL (13.0-18.0); Mean Corp Hgb Conc. 30.2 g/dL (33.0-37.0); Mean Corpuscular Volume 101.9 fL (80.0-94.0); Nucleated Red Blood Cells % 0 % (-); Platelet Count 213 10^3/uL (130-400); Red Cell Dist. Width 16.0 % (11.5-14.5)
[2025-03-10 07:53] LABS: C-Reactive Protein 19.30 mg/L (0.0-10.00)
[2025-03-10 07:54] LABS: Calcium 9.6 mg/dl (8.4-10.2)
[2025-03-10 07:59] LABS: Albumin 3.8 g/dl (3.5-5.0); Blood Urea Nitrogen 66 mg/dl (9-20); Calcium 9.4 mg/dl (8.4-10.2); Carbon Dioxide 19 mmol/L (22-30); Chloride 111 mmol/L (98-107); Glucose 113 mg/dl (70-99); Potassium 3.8 mmol/L (3.5-5.1); Sodium 141 mmol/L (135-145); eGFR 12.94
[2025-03-10 08:04] LABS: Total Iron Binding Capacity 243 ug/dl (261-462)
[2025-03-10 14:12] LABS: Iron 73 ug/dl (49-181)
[2025-03-11 10:43] LABS: Rheumatoid Agglutinin Less Than 10 IU (<10 IU)
[2025-03-12 10:44] LABS: ANA, IgG Reflex to HEp-2 None Detected (None Detected)
[2025-03-12 15:13] LABS: SSA 52 (Ro)(ENA) Ab, IgG 0 AU/mL (0-40); SSA 60 (Ro)(ENA) Ab, IgG 0 AU/mL (0-40); SSB (La)(ENA) Ab, IgG 0 AU/mL (0-40)
== END ==
LOC: REG 06:21
PROVIDERS: ATTENDING PHYSICIAN Internal Medicine Critical Care Medicine; FAMILY PHYSICIAN Internal Medicine; REFERRING PHYSICIAN Specialist
DX: J84.9 Interstitial pulmonary disease, unspecified (principal); D63.1 Anemia in chronic kidney disease; N18.4 Chronic kidney disease, stage 4 (severe); N18.5 Chronic kidney disease, stage 5
CPT/HCPCS: 36415; 80069; 82550; 82668; 83540; 83550; 83880; 83970; 85025; 85652; 86038; 86140; 86235; 86430

== ENCOUNTER 2025-03-12 08:05 | Outpatient (RCR) | payer MEDICARE, SELFPAY ==
[2025-02-12] MEDS: INJECTAFER 265 MG IV (08:52)
[2025-02-12 09:00] VITALS: BP 150/86
[2025-02-12] MEDS: [UNRECOGNIZED DRUG - OTHER] 100 MG IV (10:03)
[2025-02-12 10:05] VITALS: BP 146/76
[2025-02-12 10:55] VITALS: BP 145/77
[2025-02-19] MEDS: INJECTAFER 265 MG IV (08:53)
[2025-02-19 08:57] VITALS: BP 139/82
[2025-02-19 09:50] VITALS: BP 143/62
[2025-03-12 08:27] VITALS: BP 156/94
[2025-03-12] MEDS: [UNRECOGNIZED DRUG - OTHER] 100 MG IV (08:41)
== END 2025-03-12 23:59 | disposition home or self-care (01) ==
LOC: OID 08:05
PROVIDERS: ATTENDING PHYSICIAN Specialist; FAMILY PHYSICIAN Internal Medicine
DX: T86.10 Unspecified complication of kidney transplant (principal); Y93.89 Activity, other specified; Z94.0 Kidney transplant status; D84.9 Immunodeficiency, unspecified; N18.6 End stage renal disease; R80.1 Persistent proteinuria, unspecified; I48.20 Chronic atrial fibrillation, unspecified; D63.1 Anemia in chronic kidney disease; R06.02 Shortness of breath; R53.1 Weakness; R53.83 Other fatigue
CPT/HCPCS: 96365; 96367; J0485; J1439

== ENCOUNTER 2025-03-18 19:48 | Inpatient (IN) | payer MEDICARE, SELFPAY ==
[2025-03-18] VITALS (9 sets, daily range): BP systolic 105–139; BP diastolic 53–74; BMI 23.7; BMI 24.0
--- NOTE | 2025-03-18 16:40 | ED.GENMED ---
History of Present Illness
General
Chief Complaint: Fever
Source: patient, spouse and family (Daughter)
Time Seen by Provider: 03/18/25 16:18
History of Present Illness
History of Present Illness:
79-year-old male presents to the emergency room for evaluation of fever. Patient had a temperature today of 101. He feels generally weak, has chills and is noted to be short of breath by his . Patient has a history of a kidney transplant back
in December 2018. Recently his kidney function test have been elevating. He had a biopsy performed in July which showed some changes of rejection. Patient under the care of Dr. Muhammad for nephrology. He has had recent adjustments of medication.
Most recent the patient was seen by Dr. Jim for urology. He had a Disla catheter placed for hydronephrosis 3 days ago. He had a COVID vaccination 2 days ago patient denies any sore throat, cough, chest pain.
Past History
Past History
ED Past Medical History: Arrthythmia, HTN, Renal failure, Valvular disease and Other
ED Past Surgical History: Cardiac and Other
Social History
Tobacco: Non-smoker
Alcohol: None
Drug: None
Personal:
Living: with family
Phy Exam
Physical Exam
Physical Exam:
General: Awake, Alert, Oriented X3. Increased work of breathing
Vitals: Febrile, tachycardic, tachypneic
Head: Atraumatic
Eyes: Pupils equal, EOMI
Throat: Airway intact, no exudates
Neck: Trachea midline
Lungs: Clear and equal b/l
Heart: irregular rate, 3/6 ejection murmurs
Abd: Soft, Nontender, No pulsatile mass
Neuro: Nonfocal
Skin: Warm, dry, no rash
Extremities: pulses equal b/l, no edema
Course
Orders/Labs/Results
Orders:
Orders
03/18/25 Dinner
Regular
At Your Request: Full Participation
03/18/25 16:29
Electrocardiogram (*1) Urgent
Reason for Study: Other
Other Reason for Exam: Possible Sepsis
Cardiac Monitoring- Treatment ONCE
IV Insert/Care/Rem.- Treatment PRN
Pulse Ox/cont/shift [RESP] Urgent
Quantity: 1
Special Instructions: CONTINUOUS
03/18/25 16:30
EKG- Treatment ONCE
CR Chest - 2 Views Urgent
Comment:
Reason For Exam: suspected infection
03/18/25 16:38
Acetaminophen [Tylenol] 650 mg PO NOW STA
Lactated Ringers [Lr] 1,000 ml IV BOLUS
03/18/25 16:39
CT Abd/pel Without Iv Or Oral Urgent
Comment:
Reason For Exam: fever, renal failure
03/18/25 16:44
Cefepime HCl [Maxipime] 2,000 mg IV NOW STA
03/18/25 17:01
Complete Blood Count/With Diff Urgent
Comprehensive Metabolic Panel Urgent
Lactic Acid Q4H
Comment: ON ICE, CANCEL 2ND ORDER IF FIRST LACTIC ACID LEVEL <2
Manual Differential Urgent
Blood Culture Q20M
HOSSEIN Source: Blood/Venous
Specimen Description:
Comment: Urgent from separate sites. If patient screens positive for possible sepsis
03/18/25 17:02
Blood Culture Q20M
HOSSEIN Source: Blood/Venous
Specimen Description:
Comment: Urgent from separate sites. If patient screens positive for possible sepsis
03/18/25 17:03
COVID-19 Antigen Urgent
Source: Nasal Swab
INF RAPID [Influenza A+B Rapid Molecular] Urgent
HOSSEIN Source: Nasal Swab
Specimen Description:
03/18/25 17:05
Sterile Water [Sterile Water For Injection] 10 ml .ROUTE .[facility]
03/18/25 18:13
Urinalysis Reflex To Culture Urgent
Date Specimen was Collected: 03/18/25
Time Specimen was Collected: 16:30
Urine Microscopic Reflex Cult Urgent
Urine Culture Urgent
HOSSEIN Source: U
Specimen Description:
Date Specimen was Collected: 03/18/25
Time Specimen was Collected: 16:30
03/18/25 18:52
Vancomycin [Vancocin] 1,500 mg 0.9% Sodium Chloride 500 ml [Nss] 500 ml IV NOW
03/18/25 19:00
Lactated Ringers [Lr] 1,000 ml IV 200 mls/hr
03/18/25 19:22
Admit/Transfer Patient As Directed
Co-Sign Provider:
Level of Care: Inpatient admission
Assign to:: IMU- Intermediate Care
Physician / Group: Сергей
Diagnosis: Sepsis
Reason for Hospitalization: sepsis
Expected length of stay greater than two midnights?: Yes
ELOS- Estimated Length of Stay in days: 2
I certify the patient meets the requirements for IP care: Yes
PRN Pain Medication Management As Directed
May give lesser potent ordered pain med per pt: Yes
preference::
Protocol:: Medication orders for pain may be administered in a
manner that supports deferring to patient preference
when the pt is:
- Requesting an ordered lesser potent pain medication.
Least to most potent pain medications are defined
as: acetaminophen < NSAID < tramadol < opioids
(morphine, oxycodone, hydromorphone).
- Requesting a lesser dose of the same medication IF
ORDERED.
- Requesting a less intrusive route of administration
if both routes are prescribed by the provider (PO <
IV).
03/18/25 19:23
Code Status As Directed
Resuscitation Status: Full Code
03/18/25 21:09
Acetaminophen [Tylenol/Feverall] 650 mg RECTAL Q4HPRN PRN
Acetaminophen [Tylenol] 650 mg PO Q4HPRN PRN
Apixaban [Eliquis] 5 mg PO BID
Doxazosin Mesylate [Cardura] 2 mg PO BID
Metoprolol [Lopressor] 25 mg PO BID
Mycophenolic Acid Dr [Myfortic Delayed Rel.] 720 mg PO BID
Prednisone [Deltasone] 2.5 mg PO BID
03/18/25 21:09
VTE Contraindication Routine
VTE Mechanical Device Contraindication: Medical Contraindication
Pharmocologic Contraindication: Medical Contraindication
Activity As Directed
Activity Level: With Assistance
Disla Catheter [Catheter- Indwelling] As Directed
Reason for insertion: Chronic Disla on Admit
Intake/ Output As Directed
Frequency: Per unit guidelines
Vital Signs As Directed
Frequency: Per unit guidelines
03/18/25 21:44
Lactic Acid Q4H
Comment: ON ICE, CANCEL 2ND ORDER IF FIRST LACTIC ACID LEVEL <2
03/18/25 23:00
Lactated Ringers [Lr] 1,000 ml IV 100 mls/hr
03/19/25 06:00
Type+Screen IN AM
Basic Metabolic Panel IN AM
Complete Blood Count/No Diff IN AM
03/19/25 08:00
Cefepime HCl [Maxipime] 1,000 mg IV Q12H
Abnormal Lab Results
03/18/25 03/18/25
17:01 18:13
WBC 15.1 H 10^3/uL
(4.8-10.8)
RBC 2.56 L 10^6/uL
(4.70-6.10)
Hgb 7.7 L g/dL
(13.0-18.0)
Hct 24.3 L %
(39.0-52.0)
MCV 94.9 H fL
(80.0-94.0)
MCHC 31.7 L g/dL
(33.0-37.0)
RDW 14.9 H %
(11.5-14.5)
MPV 11.2 H fL
(7.4-10.4)
Abs Neuts (Manual) 13.7 H 10^3/uL
(1.4-6.5)
Band Neutrophils 23 H %
(0-3)
Lymphocytes (Manual) 1 L %
(20-51)
Sodium 132 L mmol/L
(135-145)
Carbon Dioxide 17 L mmol/L
(22-30)
BUN 71 H mg/dl
(9-20)
Creatinine 4.7 H* mg/dL
(0.7-1.3)
Glucose 158 H mg/dl
(70-99)
Lactic Acid 2.9 H mmol/L
(0.7-2.0)
Calcium 8.2 L mg/dl
(8.4-10.2)
Total Protein 5.3 L g/dl
(6.3-8.2)
Albumin 3.1 L g/dl
(3.5-5.0)
Ur Occult Blood Reflex 4+ A
(Negative)
Leukocyte Esterase Rfl 3+ A
(Negative)
Urine WBC (Reflex) >100 A /HPF
(0-5)
Urine Bacteria (Reflex) Many A
(Negative)
Urine Albumin (Reflex) 4+ A
(Neg - Trace)
03/18/25 17:01
03/18/25 17:01
Vital Signs
Initial and Last Documented VS:
Initial Vital Signs
Temp Pulse Resp BP Pulse Ox
99.2 F 115 18 105/59 98
03/18/25 16:11 03/18/25 16:11 03/18/25 16:11 03/18/25 16:11 03/18/25 16:11
Last Documented Vital Signs
Temp Pulse Resp BP Pulse Ox
100.5 F H 109 23 110/53 99
03/18/25 20:50 03/18/25 22:14 03/18/25 22:00 03/18/25 22:14 03/18/25 22:00
MDM/Problems Addressed
Differential Diagnosis Includes:
Acute cystitis, Kepone nephritis, acute rejection, electrode abnormality
MDM/Problems Addressed:
Patient presents with fever, generalized weakness, chills and shortness of breath. Patient is observed to be fairly tachypneic. He is also tachycardic. Currently blood pressure is adequate. Broad-spectrum antibiotics in the form of cefepime
ordered immediately given his immunocompromise state (antirejection medication for his renal transplant) and recent instrumentation in the form of a Disla catheter placement. Given his adequate blood pressure we will start without IV fluid bolus of
1 L. Most recent renal function was quite abnormal with creatinine 4.5. Will have to balance fluid resuscitation with the risk of heart failure.
I communicated with Dr. Sherwood and Dr. Alvares. No immediate interventions required other than antibiotics and normal sepsis management.
*Radiology
Radiology exam reviewed: radiology read reviewed
*Pulse Oximetry
SaO2: 98
Oxygen Mode of Delivery: Room air
Patient hypoxic: no
*EKG
Interpreted by ED Provider?: Yes
Interpretation: abnormal
Heart Rate: 100
Rate: normal
Rhythm: a-fib
Reva: normal axis
Interval: normal interval
QRS Pattern: normal QRS
Ischemia: non-specific ST changes
*Boxer Operator Interpretation
Rate: tachycardiac
Interpretation: abnormal
Heart Rate: 115
Rhythm: a-fib
*Critical Care Note
Total Time (30-74mins, 75-104mins- exclusive of procedures): 37 min
comment:
Critical care statement: A total of 37 minutes of critical care time was provided for this patient. This includes management of unstable vital signs, evaluation of the patient at bedside, reviewing the patient's pertinent medical records, discussion
with consultants, review of old EKGs and review of pertinent medical records. This time with separate from time utilized to perform the aforementioned documented procedures
Data Reviewed
Review of Other/Old Records Reveals: Labs (Recent labs from February 2025) and Radiology Studies (Ultrasound report from February 2024)
ED Attending Note
-
Portions of this chart may have been created with voice recognition software.� Occasional wrong word or��sound alike� substitutions may have occurred due to the inherent limitations of voice recognition software.
Discharge Plan
Departure
Patient Disposition: Admit
Date of Disposition: 03/18/25
Time of Disposition: 18:36
Presentation/result/management discussed w/ accepting MD/DO: Hospitalist
Condition: Serious
Discharge Problem:
Sepsis, Pyelonephritis of transplanted kidney
Interventions
Interventions:
*Risk Screen - Suicide Last Done: 03/18/25 16:11
*General Assessment Last Done: 03/18/25 16:11
*Neglect/Abuse Screening Last Done: 03/18/25 16:11
*ED- Fall Risk Assessment Last Done: 03/18/25 19:10
*ED COVID-19 Vaccine History Last Done: 03/18/25 16:32
*ED Influenza Vaccine History Last Done: 03/18/25 19:10
*Nursing Disposition Last Done: 03/18/25 21:18
ED- Neurological Assessment Last Done: 03/18/25 16:32
ED-Skin Assessment Last Done: 03/18/25 16:32
Discharge Date and Time
Discharge Date/Time: 03/18/25 21:19
[2025-03-18] MEDS: LR 1000 IV ×2 (17:07→19:07)
[2025-03-18] MEDS: MAXIPIME 2000 MG IV (17:09)
[2025-03-18] MEDS: TYLENOL 650 MG PO (17:09)
[2025-03-18 17:34] LABS: ALT (SGPT) 42 U/L (0-50); AST (SGOT) 31 U/L (17-59); Albumin 3.1 g/dl (3.5-5.0); Alkaline Phosphatase 86 U/L (38-126); Blood Urea Nitrogen 71 mg/dl (9-20); Calcium 8.2 mg/dl (8.4-10.2); Carbon Dioxide 17 mmol/L (22-30); Chloride 104 mmol/L (98-107); Estimated Creatinine Clearance 14 ml/min; Glucose 158 mg/dl (70-99); Potassium 4.0 mmol/L (3.5-5.1); Sodium 132 mmol/L (135-145); Total Protein 5.3 g/dl (6.3-8.2); eGFR 11.95
[2025-03-18 17:41] LABS: COVID-19 Antigen Negative (Negative)
[2025-03-18 17:42] LABS: Hematocrit 24.3 % (39.0-52.0); Hemoglobin 7.7 g/dL (13.0-18.0); Mean Corp Hgb Conc. 31.7 g/dL (33.0-37.0); Mean Corpuscular Volume 94.9 fL (80.0-94.0); Platelet Count 171 10^3/uL (130-400); Red Cell Dist. Width 14.9 % (11.5-14.5)
[2025-03-18 18:08] LABS: Absolute Neutrophils -Man Diff 13.7 10^3/uL (1.4-6.5)
[2025-03-18 18:09] LABS: Platelets Checked Yes
[2025-03-18 18:11] LABS: Anisocytosis 1+; Normal RBC Morphology No; Polychromasia 1+; Total Cells Counted 100
[2025-03-18 18:36] LABS: Urine Character Cloudy (Clear)
--- NOTE | 2025-03-18 18:46 | HPS.HSE ---
Family Physician
-
Family Physician: Neville Kam
Chief Complaint
-
Fever
History of Present Illness
This is a 79-year-old with past medical history significant for end-stage renal disease status post kidney transplant and currently on beta-lactam's and prednisone for antirejection as well as mycophenolate, anemia, atrial fibrillation
anticoagulation who presents to the emergency department with approximately 2 days of fever after inspection of urinary cath for hydronephrosis.
Patient reported kidney function has been increasing over since above January. Ultrasound did show transplant hydronephrosis and he had a urinary cath placed on Saturday. He said that he had a COVID vaccination on Saturday. Started having fevers
on Saturday. Spouse reported chills. He reported initially had about fall later proved after urinary cath placement but the output has decreased since then due to decreased appetite. He reported he is amlodipine has been decreased to 2.5, he
denies any other medication changes. Family reports a slight cough. He states he is somewhat productive but no production of sputum in the emergency department. He reports mild shortness of breath. He states that he did take Tylenol yesterday to
control the fever but the family reported that they only started measure any fever this morning.
He reported that he is being worked up for his anemia recently and he had iron infusions about a month ago. He had a colonoscopy in November.
In the emergency department he had a temp of 100.5, blood pressure was 115/60 with a pulse of 109 and was satting 98% on room air.
His chest x-ray shows interstitial lung findings which seems similar to prior. He had a white count of 15.1 hemoglobin 7.7 and platelet count of 171. Lactic acid was 2.9. Sodium was 132 the last rest of the electrolytes were mostly unremarkable.
BUN/creatinine was 71 and 4.7 with a glucose of 158.
He had a 23% bandemia. COVID test was negative, flu test was negative. UA is pending. CT of the abdomen pelvis showing:
Severe acute edema and inflammation around the right lower quadrant renal transplant which is new from 12/17/2024. Severe hydronephrosis of the right intrarenal collecting system and right renal pelvis which has increased. ACUTE PYELONEPHRITIS of
the RIGHT LOWER QUADRANT RENAL TRANSPLANT is considered most likely. Acute infarction of the renal transplant is a less likely diagnostic possibility.
Severe diffuse urinary bladder wall thickening with surrounding perivesical inflammation which appears new from 12/17/2024 suggesting SEVERE ACUTE CYSTITIS. Disla catheter in the urinary bladder. Mildly enlarged prostate gland.
Severe chronic inflammatory interstitial pneumonitis.
Small bilateral pleural effusions.
Medical History
Past Medical History
Past Medical History: Reports Other ( renal transplant at [facility]/by Dr. Suzie Hines in 2019, permanent atrial fibrillation on Eliquis, hypertension, BPH)
Past Surgical History: Reports Other (renal transplant )
Social History
Tobacco: Non-smoker
Alcohol: None
Drug: None
Personal:
Living: Alone
Employment: Retired
Family History
Family History: Not pertinent
Allergies / Home Medications
Allergies reflects when Allergies were last updated in [employer]
Home Medications with original date entered in [employer]
Allergy/Medication List:
Allergies
Allergy/AdvReac Type Severity Reaction Status Date / Time
No Known Drug Allergies Allergy - Verified 03/18/25 16:11
Home Medications
apixaban 5 mg tablet (Eliquis) 5 mg PO BID Blood Clot Prevention/Tx 08/11/18
metoprolol tartrate 25 mg tablet 25 mg PO BID Blood Pressure 03/14/20
mycophenolate sodium 180 mg tablet,delayed release 720 mg PO BID Transplant 03/14/20
amlodipine 5 mg tablet 5 mg PO DAILY Blood Pressure 10/04/22
cholecalciferol (vitamin D3) 10 mcg (400 unit) capsule (Vitamin D3) 10 mcg PO DAILY Supplement 10/04/22
belatacept 250 mg intravenous solution 450 mg IV QMONTH 07/22/23
doxazosin 2 mg tablet 2 mg PO BID 07/22/23
losartan 50 mg tablet 50 mg PO BID 07/22/23
prednisone 2.5 mg tablet 2.5 mg PO BID 07/22/23
therapeutic multivitamin 1 tab PO DAILY 07/22/23
torsemide 5 mg tablet 5 mg PO .MOWE 02/12/25
Review of Systems
-
Constitutional: Reports Fever and Fatigue
EENT: Reports No Symptoms
Respiratory: Reports No Symptoms
Cardiac: Reports No Symptoms
Abdomen/GI: Reports No Symptoms
: Reports No Symptoms
Musculoskeletal: Reports No Symptoms
Skin: Reports No Symptoms
Neurological: Reports Weakness
Endocrine: Reports No Symptoms
Hematologic/Lymphatic: Reports No Symptoms
Psych: Reports No Symptoms
Physical Exam
Vital Signs
Vital Signs
Temp Pulse Resp BP Pulse Ox
100.5 F H 109 27 115/65 98
03/18/25 17:00 03/18/25 16:30 03/18/25 16:30 03/18/25 16:28 03/18/25 16:40
Physical Exam
General: No Apparent Distress
HEENT: NormoCephalic, Moist mucous membranes and Atraumatic
Respiratory: Clear; No Wheezes, Rales, Rhonchi or Crackles
Cardiac: S1/S2, Regular Rhythm and Murmur (3 out of 6 systolic murmur); No Rub, Peripheral Edema or JVD
GI: Soft, Non Tender, Non Distended and Normal Bowel Sounds; No Organomegaly
Rectal: Deferred by Provider
Musculoskeletal: No Clubbing, No Cyanosis and No Edema
Skin: No Rash
Neuro: AO x 3 and Nonfocal/grossly intact
Laboratory Results
-
03/18/25 17:01
03/18/25 17:01
Laboratory Results
Lactic Acid 2.9 mmol/L (0.7-2.0) H 03/18/25 17:01
Total Bilirubin 0.5 mg/dl (0.2-1.3) 03/18/25 17:01
AST 31 U/L (17-59) 03/18/25 17:01
ALT 42 U/L (0-50) 03/18/25 17:01
Alkaline Phosphatase 86 U/L (38-126) 03/18/25 17:01
Data Reviewed
-
Diagnostic Radiology: Image Personally Visualized and interpreted
CT Scan: Report Reviewed by me
Lab Data: Labs Reviewed by me
Old Records: Reviewed
Impression/Plan
-
IMPRESSION:
79-year-old with history of end-stage renal disease status post kidney transplant 2019 on antirejection medications, hypertension, hyperlipidemia, atrial fibrillation on , urinary retention status post catheter placement on Saturday presenting
to the emergency department with fever and chills as well as weakness. CT scan consistent with transplant pyelonephritis. He still has persistent hydro which likely reflects chronic hydro compared to his prior ultrasound. Known anemia. Picture
consistent with pyelonephritis with bandemia and lactic acidemia consistent with sepsis.
PLAN:
Sepsis secondary to pyelonephritis with RORY -
- Admit to IMU for now
- Status post 30 mL/kg crystalloid in ED
-Blood and urine culture sent
- Will continue with IV cefepime
- Hold off on further vancomycin at this time, continue with azithromycin for possible pulmonary source, low likelihood
- continue iv fluids for now
- ID consultation
Hydronephrosis - Resolving, cannot rule out post obstructive polyuria. Catheter placed by Dr. Jim as outpatient on saturday.
- maintain urinary catheter for now
- patient denies any alpha blockade but considering TURP
- monitor i/os
- f/u u/s after tx of rory
- continue cardura with hold parameters
RORY - Persistent RORY despite Disla placement. Recent Treatment for rejection in December.
- continue IV fluids
- hold losartan and torsemide for now
- avoid nephrotoxins and renal dose medications
- nephrology consult
Transplant
- continue cellcept and prednisone
Anemia - Macrocytic anemia, recent normal sats but given IV iron infusion without improvement. Denies melena. Colonoscopy November ->single non-bleeding colonic angioectasia and internal hemorrhoids. On eliquis.
- check b12/folate/retic
- type and screen and trend H&H for now
- minimize transfusion
AFIB
- continue metoprolol (hold parameters) and eliquis
DVT PPX - on eliquis
Code status - Full Code
[2025-03-18] MEDS: VANCOCIN 530 MG IV (19:07)
[2025-03-18 19:09] LABS: Urine White Cell >100 /HPF (0-5)
[2025-03-18] MEDS: ELIQUIS 5 MG PO (21:37)
[2025-03-18] MEDS: LOPRESSOR 25 MG PO (21:37)
[2025-03-18] MEDS: DELTASONE 2.5 MG PO (21:37)
[2025-03-18] MEDS: MYFORTIC DELAYED REL. 720 MG PO (21:38)
[2025-03-18] MEDS: CARDURA 2 MG PO (22:14)
--- NOTE | 2025-03-18 22:36 | W.CON.NEPH ---
Consultation
-
Date/Time Consultation Requested: 03/18/2025 9 PM
Date/Time Consultation Performed: 03/18/2025 10 PM
Requesting Provider: Dr. Rushing
Performing Provider: Dr. Sherwood
Reason for Consultation: ELIZABETH
Medical History
-
Chief Complaint: ELIZABETH
History of Present Illness:
This is a 79-year-old gentleman who follows in our office with Dr. Muhammad after donor renal transplant 2019 from [facility]. His transplant course has been complicated by development of nephrotic range proteinuria as well as recent
cellular rejection December of this year. The episodes treated with Solu-Medrol. His creatinine has risen quickly over time in the last several months. He has gone from a creatinine around 2 now up to 4.4. He was noted to have hydronephrosis of
the transplanted kidney recently on ultrasound as well as CT scan. Disla catheter was placed by urology a few days ago. His appetite has been poor as of late. Recently he also developed fever and malaise and this has brought him to the emergency
room. He was noted to be febrile in the ER. Blood pressure was stable though lower than his home readings of 132. He was 100 systolic in the ER. Creatinine was 4.7 with elevated lactate level and elevated white count. CT of the abdomen and
pelvis were performed with suspicion for pyelonephritis of the transplant. We are asked to assist in management of his renal issues.
Past Medical History
donor renal transplant 2019 [facility]
Paroxysmal atrial fibrillation
Hypertension
postherpetic neuralgia
BPH
Nephrotic range proteinuria
Nephrolithiasis
FSGS
Prior PD catheter
Social History
Tobacco: Former Smoker
Alcohol: Occasional
Family History
Family History: Not Pertinent
Allergies / Home Medications
Allergy/AdvReac Type Severity Reaction Status Date / Time
No Known Drug Allergies Allergy - Verified 03/18/25 16:11
�Medication �Instructions �Recorded �Confirmed �Type
apixaban 5 mg tablet (Eliquis) 5 mg PO BID Blood Clot 08/11/18 03/12/25 History
Prevention/Tx
metoprolol tartrate 25 mg tablet 25 mg PO BID Blood Pressure 03/14/20 03/12/25 History
mycophenolate sodium 180 mg 720 mg PO BID Transplant 03/14/20 03/12/25 History
tablet,delayed release
amlodipine 5 mg tablet 5 mg PO DAILY Blood Pressure 10/04/22 03/12/25 History
cholecalciferol (vitamin D3) 10 10 mcg PO DAILY Supplement 10/04/22 03/12/25 History
mcg (400 unit) capsule (Vitamin D3)
belatacept 250 mg intravenous 450 mg IV QMONTH 07/22/23 03/12/25 History
solution
doxazosin 2 mg tablet 2 mg PO BID 07/22/23 03/12/25 History
losartan 50 mg tablet 50 mg PO BID 07/22/23 03/12/25 History
prednisone 2.5 mg tablet 2.5 mg PO BID 07/22/23 03/12/25 History
therapeutic multivitamin 1 tab PO DAILY 07/22/23 03/12/25 History
torsemide 5 mg tablet 5 mg PO .MOWE 02/12/25 03/12/25 History
Review of Systems
-
Weakness, fever as above
All other systems: Negative unless noted
Physical Exam
Vital Signs
Vital Signs
Temp Pulse Resp BP Pulse Ox
100.5 F H 109 23 110/53 99
03/18/25 20:50 03/18/25 22:14 03/18/25 22:00 03/18/25 22:14 03/18/25 22:00
Lab Results
WBC 15.1 10^3/uL (4.8-10.8) H 03/18/25 17:01
RBC 2.56 10^6/uL (4.70-6.10) L 03/18/25 17:01
Hgb 7.7 g/dL (13.0-18.0) L 03/18/25 17:
Hct 24.3 % (39.0-52.0) L 03/18/25 17:
Plt Count 171 10^3/uL (130-400) 03/18/25 17:
Sodium 132 mmol/L (135-145) L 03/18/25 17:
Potassium 4.0 mmol/L (3.5-5.1) 03/18/25:
Chloride 104 mmol/L (98-107) 03/18/25 17:
Carbon Dioxide 17 mmol/L (22-30) L 03/18/25:
BUN 71 mg/dl (9-20) H 03/18/25:
Creatinine 4.7 mg/dL (0.7-1.3) H* 03/18/25 17:
eGFR 11.95 03/18/25:
Glucose 158 mg/dl (70-99) H 03/18/25 17:
Calcium 8.2 mg/dl (8.4-10.2) L 03/18/25:
Albumin 3.1 g/dl (3.5-5.0) L 03/18/25 17:
CT abdomen pelvis without contrast 03/18/2025
IMPRESSION:
1. Severe acute edema and inflammation around the right lower quadrant renal transplant which is new from 12/17/2024. Severe hydronephrosis of the right intrarenal collecting system and right renal pelvis which has increased. ACUTE PYELONEPHRITIS
of the RIGHT LOWER QUADRANT RENAL TRANSPLANT is considered most likely. Acute infarction of the renal transplant is a less likely diagnostic possibility.
2. Severe diffuse urinary bladder wall thickening with surrounding perivesical inflammation which appears new from 12/17/2024 suggesting SEVERE ACUTE CYSTITIS. Disla catheter in the urinary bladder. Mildly enlarged prostate gland.
3. Large amount of fecal material in the proximal colon suggesting severe constipation.
4. Moderate diverticulosis in the sigmoid colon.
5. Severe bilateral atrophy of the pala kidneys.
6. Severe calcific atherosclerotic disease in the abdominal aorta and visceral arteries.
7. Moderate cardiomegaly.
8. Severe chronic inflammatory interstitial pneumonitis.
9. Small bilateral pleural effusions.
10. Severe lower lumbar discogenic degenerative disease and facet joint arthrosis.
Physical Exam
Patient is awake alert oriented and in no distress. He was tachypneic mood and affect were pleasant, insight and judgment were good. Pupils are equal round and reactive to light, extraocular movements are intact, sclera were anicteric. Hearing was
normal, ears and nose are intact. Oropharynx was clear. Neck was supple with trachea midline and no thyromegaly. Heart was regular rate and rhythm without rubs. Lower extremities without edema. Lungs were clear to auscultation bilaterally and with
normal excursion. Faint rales noted at the bases abdomen was soft, nontender, with normal active bowel sounds, and no hepatosplenomegaly. Skin was without rash and with normal turgor.
Data Reviewed
-
Radiology: Image Personally Visualized and interpreted (Chest x-ray 03/18/2025 by my reading bilateral interstitial disease, cardiomegaly)
CT Scan: Report Reviewed by me
Medical Tests (Nuc Med, Echo etc): Image Personally Visualized and interpreted (EKG 03/18/2025 by my reading atrial fibrillation)
Labs: Labs Reviewed by me
Old Records: Reviewed
Assessment/Plan
-
Assessment
Sepsis syndrome, possible pyelonephritis
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
donor renal transplant with FSGS, recent T-cell rejection
Obstructive uropathy, Disla catheter in place
ELIZABETH..
Anemia
Hyponatremia
lactic acidosis
Plan
Can cap IV fluids at this point he has received 1.6 L
Follow-up BMP
He has already been making outpatient arrangements for eventual ESRD and transplant evaluation
Urology evaluation
Empiric antibiotics
Await culture results
Continue immunosuppressive regimen including prednisone and mycophenolate. He is not yet due for belatacept.
Maintain Disla
[2025-03-18] MEDS: ZITHROMAX 252.5 MG IV (23:00)
[2025-03-19] VITALS (23 sets, daily range): BP systolic 100–153; BP diastolic 51–102
--- NOTE | 2025-03-19 00:52 | PTCARENOTE ---
Report called from Abigail BELL. Pt transported from the ED via stretcher. Pt AAOx3, pleasant, [place]. Spouse and daughter at the bedside. Pt receiving IVF and Vanco on arrival. Sinus tach on the monitor HR 110s. Received pt on 2L NC, 98%. Pt reports
feeling SOB but also states 'I always feel short of breath'. Pt tachypneic RR 30. Pt increased to 3L NC. Chronic esteves on admission, draining yellow urine. Dr. Sherwood at the bedside and spoke to patient and family. Dr. Sherwood capping off IVF. Marked not
given in the MAR. Pt states last BM was 'earlier in the week'. Pt denies issues with constipation. Pt denies any pain at this time. Assessment and admission completed see worklist. Pt oriented to the unit, call tao is within reach.
[2025-03-19 04:50] LABS: Hematocrit 19.6 % (39.0-52.0); Hemoglobin 6.3 g/dL (13.0-18.0); Mean Corp Hgb Conc. 32.1 g/dL (33.0-37.0); Mean Corpuscular Volume 93.8 fL (80.0-94.0); Platelet Count 118 10^3/uL (130-400); Red Cell Dist. Width 14.7 % (11.5-14.5)
[2025-03-19 05:29] LABS: Blood Urea Nitrogen 78 mg/dl (9-20); Calcium 7.6 mg/dl (8.4-10.2); Carbon Dioxide 15 mmol/L (22-30); Chloride 106 mmol/L (98-107); Estimated Creatinine Clearance 13 ml/min; Glucose 122 mg/dl (70-99); Potassium 4.1 mmol/L (3.5-5.1); Sodium 131 mmol/L (135-145); eGFR 10.84
--- NOTE | 2025-03-19 05:30 | W.PN.UPDATE ---
Update Note
Progress Note Update
hgb 6.3/19.6, discussed with the admitting Dr.
no active bleeding per RN. Had one dark brown stool, VSS, asymptomatic
Patient AAOx3, explained the hgb drop, need for blood transfusion, verbalized understanding
Consent signed and in chart
type and screen done
will transfuse 1 unit of PRBC's
heme test stool
will check ABO
[2025-03-19] MEDS: STERILE WATER FOR INJECTION 10 ML IV (07:59)
[2025-03-19] MEDS: MAXIPIME 1000 MG IV (07:59)
[2025-03-19] MEDS: MYFORTIC DELAYED REL. 720 MG PO ×2 (08:00→19:57)
[2025-03-19] MEDS: DELTASONE 2.5 MG PO ×2 (08:00→19:58)
[2025-03-19] MEDS: CARDURA 2 MG PO ×2 (08:00→19:58)
[2025-03-19] MEDS: ELIQUIS 5 MG PO ×2 (08:00→19:57)
[2025-03-19] MEDS: LOPRESSOR 25 MG PO ×2 (08:01→19:58)
[2025-03-19 10:32] LABS: Iron < 20 ug/dl (49-181)
[2025-03-19 10:38] LABS: Total Iron Binding Capacity 139 ug/dl (261-462)
--- NOTE | 2025-03-19 11:29 | PTCARENOTE ---
1 unit of PRBC's infused per order. Patient tolerated well. VSS. Care ongoing.
--- NOTE | 2025-03-19 11:45 | W.PN.NEPH.PH ---
Today's Communication / Plan
-
Start IV bicarbonate
Assessment/Plan
-
Assessment
Sepsis syndrome, possible pyelonephritis
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
donor renal transplant with FSGS, recent T-cell rejection
Obstructive uropathy, Disla catheter in place
ELIZABETH..
Anemia
Hyponatremia
lactic acidosis
Plan
Follow-up BMP
He has already been making outpatient arrangements for eventual ESRD and transplant evaluation at [facility]/previously on peritoneal dialysis prior to transfer
Urology evaluation
Antibiotic= blood cultures gram-negative/Klebsiella
Continue immunosuppressive regimen including prednisone and mycophenolate. He is not yet due for belatacept.
Start on sodium bicarb
Significantly iron deficient but will refrain from IV iron in setting of bacteremia/will not benefit from Epogen with significant anemia
Agree with transfusion and rule out GI source
No acute need for dialysis from a electrolyte or volume standpoint at this time
Maintain Disla

33 minutes critical care time
High risk medical complexity
-
-
Date of Service: March 19, 2025
CC / HPI / ROS
-
Chief Complaint:
Sepsis
History of Present Illness:
Acute kidney injury multifactorial obstructive uropathy, sepsis decreased effective arterial blood volume
Review of Systems:
Complaining of mild shortness of breath no chest pain no nausea vomit
Disla catheter in place oliguria
Labs
-
Labs:
WBC 13.8 10^3/uL (4.8-10.8) H 03/19/25 04:07
RBC 2.09 10^6/uL (4.70-6.10) L 03/19/25 04:07
Plt Count 118 10^3/uL (130-400) L D 03/19/25 04:07
Sodium 131 mmol/L (135-145) L 03/19/25 04:07
Potassium 4.1 mmol/L (3.5-5.1) 03/19/25 04:07
Chloride 106 mmol/L (98-107) 03/19/25 04:07
Carbon Dioxide 15 mmol/L (22-30) L 03/19/25 04:07
BUN 78 mg/dl (9-20) H 03/19/25 04:07
Creatinine 5.1 mg/dL (0.7-1.3) H* 03/19/25 04:07
eGFR 10.84 03/19/25 04:07
Glucose 122 mg/dl (70-99) H 03/19/25 04:07
Calcium 7.6 mg/dl (8.4-10.2) L 03/19/25 04:07
Albumin 3.1 g/dl (3.5-5.0) L 03/18/25 17:01
Physical Exam
-
Vital Signs:
Vital Signs
Temp Pulse Resp BP Pulse Ox
98.6 F 90 26 104/54 93
03/19/25 11:28 03/19/25 11:28 03/19/25 11:28 03/19/25 11:28 03/19/25 11:28
Respiratory:: Bilateral: CTA
Lung Excursion:: Normal
Abdomen:: Soft
Bowel Sounds:: Normal
Extremity Edema:: None: Bilateral:
Disla Catheter: Yes
--- NOTE | 2025-03-19 12:02 | CON.ID ---
Consultation
-
Date/Time Consultation Requested: March 19, 2025 0515
Date/Time Consultation Performed: March 19, 2025 1200
Requesting Provider:
Performing Provider: Dr. Millie Shea
Reason for Consultation: Sepsis, transplant pyelonephritis
Chief Complaint / Past History
Chief Complaint
Fever
History of Present Illness
79-year-old male with history of atrial fibrillation, hypertension, disease donor renal transplant on mycophenolate, belatacept, prednisone, recent transplant renal rejection December 2024 treated with Solu-Medrol who presented to the ED March 18
due to weakness, fever and chills. Patient recently with rising creatinine which led to renal ultrasound and found to have hydronephrosis of the transplanted kidney. Esteves catheter placed by urology outpatient on March 15. Approximately 2 days
later, he started feeling unwell with chills, fever, discomfort over the transplant kidney, decreased appetite, decreased urine output. In ED T=100.5, WBC 15.1, 23% bands. CT a/p severe pyelonephritis of transplant kdney. Blood cx's x 2
Klebsiella. Currently on cefepime. Today, reports transplant kidney pain resolved. + SOB with activity. + rhinorrhea and mild cough.
Past History
Additional Past Medical History:
donor renal transplant on mycophenolate, belatacept, prednisone 2.5 twice daily 2018
Atrial fibrillation
Post-COVID chronic inflammatory interstitial pneumonitis
Hypertension
BPH
Postherpetic neuralgia
Chronic back pain
Allergy History:
No Known Drug Allergies Allergy (Verified 03/18/25 16:11)
-
Medications Reviewed: Yes
Current Antibiotics:
Cefepime 1 g IV every 12
Azithromycin 2050 mg IV every 24
Social History
Tobacco: Former Smoker
Alcohol: None
Drug: None
Personal:
Family History
Family History: Not Pertinent
Review of Systems
Review of Systems
General: Fever, Chills and Change in Appetite
HEENT: Negative Headache or Pharyngitis
Cardiovascular: Negative Chest Pain
Respiratory: Dyspnea
Gasteroenterology: Negative Nausea, Vomiting or Diarrhea
Genital / Urological: Dysuria
Endocrine: Weakness
All systems: All other systems were reviewed and were negative
Vital Signs
Temp Pulse Resp BP Pulse Ox
98.6 F 90 26 104/54 93
03/19/25 11:28 03/19/25 11:28 03/19/25 11:28 03/19/25 11:28 03/19/25 11:28
Selected Entries
03/18/25
17:00 03/18/25
20:50
Temp 100.5 F H 100.5 F H
Physical Exam
Physical Exam
Constitutional: No Acute Distress
Head: Other (No frontal or maxillary sinus tenderness)
Eyes: No Conjunctival Hemorrhage and Sclera Anicteric
Cardiovascular: Irregular Rate and S1/S2
Pulmonary: Rales
Gastrointestinal: Soft, Non Tender, Non Distended and Normal Bowel Sounds
Genito-Urinary: Esteves, Clear Urine and Other (RLQ transplant kidney nontender)
Extremities: Negative Edema
Neurological: AO x 3
Lab / Diagnostic Study Results
03/19/25 04:07
Total Counted 100 03/18/25 17:01
Abs Neuts (Manual) 13.7 10^3/uL (1.4-6.5) H 03/18/25 17:01
Segmented Neutrophils 68 % (42-75) 03/18/25 17:01
Band Neutrophils 23 % (0-3) H 03/18/25 17:01
Lymphocytes (Manual) 1 % (20-51) L 03/18/25 17:01
Lactic Acid 1.3 mmol/L (0.7-2.0) 03/19/25 04:07
Ur Squamous Epith Cells /LPF (Few) 03/18/25 18:13
Microbiology Results
Micro:
03/18/25 17:01 Blood Culture - Preliminary
Blood/Venous Klebsiella pneumoniae group
Gram Stain - Final
03/18/25 17:02 Blood Culture - Preliminary
Blood/Venous Positive culture in progress
Gram Stain - Preliminary
03/18/25 23:17 MRSA Screen - Pending
Nose
03/18/25 18:13 Urine Culture - Pending
Urine
03/18/25 17:03 Influenza Types A & B (NOLVIA) - Final
Nasal Swab Negative for Influenza A & B, NAAT
Negative results must be combined with clinical observations
and patient history.
Nucleic Acid Amplification test (NAAT)performed on the
[employer] platform.
03/18/25 CT a/p: Severe acute edema and inflammation around the right lower quadrant renal transplant which is new from 12/17/2024. Severe hydronephrosis of the right intrarenal collecting system and right renal pelvis which has increased. ACUTE
PYELONEPHRITIS of the RIGHT LOWER QUADRANT RENAL TRANSPLANT is considered most likely. Acute infarction of the renal transplant is a less likely diagnostic possibility. Severe diffuse urinary bladder wall thickening with surrounding perivesical
inflammation which appears new from 12/17/2024 suggesting SEVERE ACUTE CYSTITIS. Esteves catheter in the urinary bladder. Mildly enlarged prostate gland.
Assessment / Plan
# Klebsiella bacteremia
# Transplant kidney pyelonephritis
# Obstructive uropathy of transplant kidney, esteves placed 03/15
# Fever
# Leukocytosis, bandemia
# ELIZABETH on CKD
# donor renal txp on immunosuppressive drugs
-Repeat bcx's in am
- Continue cefepime pending cx data
- DC Azithromycin
- Trend temps/wbc
Conditions present on admission
donor renal transplant on mycophenolate, belatacept, prednisone 2.5 twice daily 2018
Atrial fibrillation
Post-COVID chronic inflammatory interstitial pneumonitis
Hypertension
BPH
Postherpetic neuralgia
Chronic back pain
[2025-03-19] MEDS: SODIUM BICARBONATE 1150 MEQ IV (12:13)
[2025-03-19 12:26] LABS: Hematocrit 22.1 % (39.0-52.0); Hemoglobin 7.3 g/dL (13.0-18.0)
[2025-03-19 12:52] LABS: Folate 14.3 ng/ml (2.76-20)
[2025-03-19 13:08] LABS: Ferritin 1550.0 ng/ml (17.9-464.0)
--- NOTE | 2025-03-19 13:59 | W.PN.HOSP.TC ---
Today's Communication/Plan
-
IV fluid bicarbonate
Continue with IV cefepime
Repeat cultures in the morning
DC azithromycin
Trend creatinine
Monitor urinary output
Assessment / Plan
Assessment / Plan
General: No Apparent Distress
HEENT: NormoCephalic, Moist mucous membranes and Atraumatic
Respiratory: Clear; No Wheezes, Rales, Rhonchi or Crackles
Cardiac: S1/S2, Regular Rhythm and Murmur (3 out of 6 systolic murmur); No Rub, Peripheral Edema or JVD
GI: Soft, Non Tender, Non Distended and Normal Bowel Sounds; No Organomegaly
Rectal: Deferred by Provider
Musculoskeletal: No Clubbing, No Cyanosis and No Edema
Skin: No Rash
Neuro: AO x 3 and Nonfocal/grossly intact
79-year-old with history of end-stage renal disease status post kidney transplant 2019 on antirejection medications, hypertension, hyperlipidemia, atrial fibrillation on , urinary retention status post catheter placement on Saturday presenting
to the emergency department with fever and chills as well as weakness. CT scan consistent with transplant pyelonephritis. He still has persistent hydro which likely reflects chronic hydro compared to his prior ultrasound. Known anemia. Picture
consistent with pyelonephritis with bandemia and lactic acidemia consistent with sepsis.
PLAN:
Sepsis associated with acute kidney injury, lactic acidosis secondary to Klebsiella bacteremia likely secondary to urinary tract infection
- Status post 30 mL/kg crystalloid in ED
- Blood cultures with Klebsiella identification noted. Urine culture also positive for gram-negative bacilli. Repeat surveillance cultures in the morning
- Will continue with IV cefepime. Renally adjusted.
- Can discontinue azithromycin
- ID consultation
Hydronephrosis - Resolving, cannot rule out post obstructive polyuria. Catheter placed by Dr. Jim as outpatient.
- maintain urinary catheter for now
- patient denies any alpha blockade but considering TURP
- monitor i/os
- f/u u/s after tx of elizabeth
- continue cardura with hold parameters
ELIZABETH - Persistent ELIZABETH despite Disla placement. Recent Treatment for rejection in December.
Metabolic acidosis
-IV fluids adjusted to bicarbonate
- hold losartan and torsemide for now
- avoid nephrotoxins and renal dose medications
- nephrology consult
Transplant
- continue cellcept and prednisone
Anemia - Macrocytic anemia, recent normal sats but given IV iron infusion without improvement. Denies melena. Colonoscopy November ->single non-bleeding colonic angioectasia and internal hemorrhoids. On eliquis.
- Ferritin level elevated. B12 folate pending. Defer Epo to nephrology. Hemoglobin 6.3 status post 1 unit of PRBC with appropriate response. Trend h/h.
- type and screen and trend H&H for now
- Transfuse hgb <7
AFIB Permanent
- continue metoprolol (hold parameters) and eliquis
DVT PPX - on eliquis
Code status - Full Code
Anticipated Discharge: > 48 hours
Subjective/Interval History
-
Date of Service: March 19, 2025
states feeling better compared to yesterday
remains on oxygen
Objective Data
-
Labs:
Laboratory Results
03/19/25 03/19/25 03/19/25
04:07 12:17 21:00
WBC 13.8 H
Hgb 6.3 L* 7.3 L Pending
Hct 19.6 L* 22.1 L Pending
Plt Count 118 L D
Sodium 131 L
Potassium 4.1
Chloride 106
Carbon Dioxide 15 L
BUN 78 H
Creatinine 5.1 H*
Glucose 122 H
Calcium 7.6 L
Vital Signs:
Vital Signs
Temp Pulse Resp BP Pulse Ox
98.6 F 90 26 104/54 93
03/19/25 11:28 03/19/25 11:28 03/19/25 11:28 03/19/25 11:28 03/19/25 11:28
I&O
03/18/25 03/19/25 03/20/25
06:59 06:59 06:59
Intake Total 1460 / 1460
Output Total 200 / 200
Balance -200 / -200 1460 / 1460
Data Reviewed
-
Total Time Spent with Patient (in minutes): 55
[2025-03-19 15:18] LABS: Vitamin B12 400 pg/ml (239-931)
--- NOTE | 2025-03-19 15:46 | PTCARENOTE ---
Exchanged esteves per order by Dr. Antonio. Blood tinged urine. Difficulty getting esteves in due to hx of enlarged prostate. Care ongoing.
--- NOTE | 2025-03-19 15:48 | PTCARENOTE ---
Increased to 5L due to SpO2 87% on 2L. SpO2 92% on 5L. Denies SOB, but states he is 'very weak'. Care ongoing.
--- NOTE | 2025-03-19 17:10 | PTCARENOTE ---
SpO2 87% on 6L NC. TigerTexted RT for midflow tubbing. RT at bedside and put patient on 12L midflow tubbing. 93% on 12L midflow. Care ongoing.
--- NOTE | 2025-03-19 17:14 | PTCARENOTE ---
Patient AOx3. VENETIE B/L. On 12L midflow. Non-productive cough. A fib on monitor. BP stable. Disla draining blood tinged urine. Poor appetite. IVF running per order. Call tao within reach, bed in lowest position, and bed of wheels locked. Update
on plan of care.
--- NOTE | 2025-03-19 17:52 | PTCARENOTE ---
Patient turned up to 15L midflow. Increase work of breathing. Dr. Antonio at bedside. Order for CXR placed. Care ongoing.
--- NOTE | 2025-03-19 18:10 | CM ---
I.A: Completed By NOHELIA Cerda
Patient lives with his in a 1 story house with 2 steps to enter, No DME, No VN/PT, only [facility] 3 years ago.
PCP: Dr. Keo Kam
Pharmacy: [facility]
Patient has transportation, CM to follow for DC needs. PLAN: Anticipate Home No Needs.
--- NOTE | 2025-03-19 18:13 | W.PN.UPDATE ---
Update Note
Progress Note Update
Patient with increasing oxygenation requirement. Patient currently requiring 15 L mid flow plus nonrebreather. O2 sats around 9092%. Patient with mild tachypnea. Per spouse at bedside earlier today patient with trouble breathing. Earlier today
patient was on 2 L of oxygenation. Patient currently is able to speak in complete sentences. S1-S2 regular rate rhythm. Mild nasal rhonchi. Tachypnea noted. No pain. Acute hypoxic respiratory failure possibility of volume overload as patient
received aggressive IV fluid resuscitation, blood transfusion was on bicarbonate drip. Per RN patient only with 300 cc of urinary output so far today. Repeat chest x-ray has been ordered. Bicarb fluids has been on hold. Plan to transition
patient to high flow nasal cannula. Discussed with nephrology and in agreement with plan for 40 mg of Lasix x 1. Monitor urinary output. Closely
--- NOTE | 2025-03-19 18:19 | PTCARENOTE ---
SpO2 85% on 15L midflow. NRB placed. Dr. Antonio and RT at bedside. Patient placed on HFNC.
[2025-03-19] MEDS: LASIX 40 MG IV (18:41)
[2025-03-19] MEDS: SENOKOT-S 1 TABLET PO (19:58)
[2025-03-19] MEDS: MORPHINE SULFATE 1 MG IV (22:39)
[2025-03-19] MEDS: LASIX 80 MG IV (22:57)
[2025-03-19 22:59] LABS: B.E. -9.6 mmol/L; O2 Saturation % 95.9 % (94-98); PCO2 24 mmHg (35-48); PO2 71 mmHg (83-108)
[2025-03-19 23:02] LABS: HCO3 14.2 mmol/L (21-28)
[2025-03-19] MEDS: ZAROXOLYN 5 MG PO (23:07)
--- NOTE | 2025-03-19 23:09 | W.PN.UPDATE ---
Addendum entered and electronically signed by CHARLOTTE Sánchez 03/19/25 23:44:
updated on her 's transfer to ICU and increasing oxygen needs. She has no one to bring her to the hospital tonight but encouraged her to call the [employer] and ask for ICU to be connected. Explained also if the NIV is not effective he
would place a breathing tube. She was in agreement.
Original Note:
Update Note
Progress Note Update
Nursing reports patient with increased tachypnea along with increasing oxygen needs. Now up to HI flow 100% 50 L 90% Reviewed with Connor Rushing and will add Lasix 80 mg IV X1 and Zaroxolyn 5 mg po. Morphine 1 mg IV given for tachypnea. ABG
done 7.38///14.2. Discussed with Michael GONZALEZ for ICU for transfer for NIV vs intubation.
[2025-03-19 23:10] LABS: Hematocrit 23.9 % (39.0-52.0); Hemoglobin 7.6 g/dL (13.0-18.0)
--- NOTE | 2025-03-19 23:15 | PTCARENOTE ---
Assumed care for patient. Pt w/ increased WOB and tachypnea. RR in the 40s. Pt maintaining 88% maxed on HFNC. Pt placed on the NRB mask. RT bedside. Pt recovered to 93%, despite continued tachypnea. CHARLOTTE Feldman notified. Order for IV Morphine, see
MAR. Stat ABG. Orders for IV Lasix and PO Zaroxolyn, see MAR. Care ongoing.
[2025-03-19 23:40] LABS: Glucose - Point of Care 128 mg/dl (70-99)
[2025-03-20] VITALS (57 sets, daily range): BP systolic 67–131; BP diastolic 32–97; BMI 24.2
[2025-03-20 00:17] LABS: Blood Urea Nitrogen 100 mg/dl (9-20); Calcium 7.4 mg/dl (8.4-10.2); Carbon Dioxide 12 mmol/L (22-30); Chloride 104 mmol/L (98-107); Estimated Creatinine Clearance 12 ml/min; Glucose 110 mg/dl (70-99); Magnesium 1.7 mg/dl (1.6-2.3); Potassium 4.4 mmol/L (3.5-5.1); Sodium 133 mmol/L (135-145); eGFR 9.48
[2025-03-20 00:22] LABS: APTT 40.4 Sec (23.4-35.0); INR 2.25; PT 25.0 Sec (11.4-14.6)
[2025-03-20] MEDS: SODIUM BICARBONATE 100 MEQ IV (00:23)
[2025-03-20 00:28] LABS: C-Reactive Protein > 270.00 mg/L (0.0-10.00)
--- NOTE | 2025-03-20 00:42 | PTCARENOTE ---
pt was upgraded to ICU, received report from Daphne RN, pt Ox3, JEFFERSON, denies pain, Afib on the monitor, + pulses, lungs coarse, rhonchi throughout c crackles @ the bases, tachypneic in the 40's, NIV 15/5 100%, sats 100%, pt air hungry pulling in lrg
volumes, but denies SOB just states the mask is annoying, BSx4, 100ml of yellow output emptied from chronic esteves, blood around the tip of penis, CHG bath, labs sent, 20G RAC, 18G LFA, bicarb 12, PATHOLOGY TECHNICIAN notified of critical lab results and bicarb given
per JUL, Ca repleted, call tao within reach, otherwise refer to documentation.
[2025-03-20] MEDS: CALCIUM GLUCONATE 130 MG IV (00:56)
--- NOTE | 2025-03-20 03:11 | PTCARENOTE ---
systems reviewed, NIV changed 04/16 60% sats 95%, RR 35, pt denies SOB, no changes from previous assessment, , daughter and granddaughter updated @ bedside, explained severity of pt status, wanted to spend the night but I explained that it
makes the pt more anxious when she is here and he needs to rest, family understood went home for the night, emotional support provided, otherwise refer to documentation.
[2025-03-20] MEDS: DILAUDID 0.25 MG IV ×2 (04:41→05:44)
--- NOTE | 2025-03-20 05:11 | PTCARENOTE ---
systems reviewed, labs sent, pt having increased WOB, c/o SOB, oral car prior to worsening RR pt sats dropped to 78%, quickly recovered once placing mask back on, ACCOUNT ENGINEER made aware, Dilaudid given per JUL, RT @ bedside updated NIV 24/10 70%, sats
improved to 97%, HR 120's-130's, RR 40's, otherwise refer to worklist
[2025-03-20 05:16] LABS: Venous Blood Gas B.E. -9.2 mmol/L (-4 to +4); Venous Blood Gas O2 Sat % 98.5 %
[2025-03-20] MEDS: MAXIPIME 1000 MG IV (05:28)
[2025-03-20] MEDS: STERILE WATER FOR INJECTION 10 ML IV (05:29)
[2025-03-20 06:25] LABS: Hematocrit 20.6 % (39.0-52.0); Hemoglobin 7.0 g/dL (13.0-18.0)
[2025-03-20 06:30] LABS: Blood Urea Nitrogen 105 mg/dl (9-20); Calcium 8.2 mg/dl (8.4-10.2); Carbon Dioxide 17 mmol/L (22-30); Chloride 103 mmol/L (98-107); Estimated Creatinine Clearance 11 ml/min; Glucose 107 mg/dl (70-99); Magnesium 1.8 mg/dl (1.6-2.3); Potassium 4.2 mmol/L (3.5-5.1); Sodium 135 mmol/L (135-145); eGFR 9.29
--- NOTE | 2025-03-20 07:43 | CON.INTV ---
Consultation
Consultation Request
Date/Time Consultation Requested: 03/20/2025-7 AM
Date/Time Consultation Performed: 03/20/2025-7:30 AM
Requesting Provider: Hospitalist
Performing Provider: Dr. Yousif
Reason for Consultation: Pyelonephritis/sepsis
Medical History
-
Chief Complaint: Shortness of breath
History of Present Illness:
79-year-old male with a 1 pack year smoking history, hypertension, nephrolithiasis, pulmonary nodule, atrial fibrillation, and renal transplantation on mycophenolate and prednisone with recent ultrasound showing transplant hydronephrosis presented
with 2 days of fever found to be septic with ELIZABETH-mobile marketing specialist consulted for sepsis/shock/ELIZABETH 03/20/2025. Patient has noninvasive ventilation as he is had progressive shortness of breath. He denies any chest pain but admits to significant shortness
of breath, no chest congestion, mucus production, hemoptysis, abdominal pain, nausea, focal weakness.
Past Medical History
Past Medical History: None (End-stage renal disease status post renal transplantation-[facility] 2018. Permanent atrial fibrillation/Eliquis. Hypertension. BPH. Postherpetic neuralgia. Chronic back pain. Pulmonary nodule right base with
negative PET followed by Dr. Olivarez-next CT 02/2025. Fatty liver. Inguinal stacey)
Past Surgical History: None (Osteoporosis. Hernia repair. Cataract 2020. Transplant kidney December 2018.)
Social History
Tobacco: Former Smoker (1 pack year quit many years ago)
Personal:
Living: With Family
Occupational Exposures: No known asbestos exposure
Environmental Exposures: No known tuberculosis exposure
Family History
Family History: Reviewed & Not Pertinent (Father-hypertension and alcoholism. Mother lung cancer.)
Allergies / Home Medications
Allergies
Allergy/AdvReac Type Severity Reaction Status Date / Time
No Known Drug Allergies Allergy - Verified 03/18/25 16:11
Home Medications
�Medication �Instructions �Recorded �Confirmed �Last Taken �Type
apixaban 5 mg tablet (Eliquis) 5 mg PO BID Blood Clot 08/11/18 03/19/25 03/11/25 History
Prevention/Tx
metoprolol tartrate 25 mg tablet 25 mg PO BID Blood Pressure 03/14/20 03/19/25 03/11/25 History
mycophenolate sodium 180 mg 720 mg PO BID Transplant 03/14/20 03/19/25 03/11/25 History
tablet,delayed release
amlodipine 5 mg tablet 5 mg PO DAILY Blood Pressure 10/04/22 03/19/25 03/12/25 History
cholecalciferol (vitamin D3) 10 10 mcg PO DAILY Supplement 10/04/22 03/19/25 03/11/25 History
mcg (400 unit) capsule (Vitamin D3)
belatacept 250 mg intravenous 450 mg IV QMONTH 07/22/23 03/19/25 03/12/25 History
solution
doxazosin 2 mg tablet 2 mg PO BID 07/22/23 03/19/25 03/11/25 History
losartan 50 mg tablet 50 mg PO BID 07/22/23 03/19/25 03/11/25 History
prednisone 2.5 mg tablet 2.5 mg PO BID 07/22/23 03/19/25 03/11/25 History
therapeutic multivitamin 1 tab PO DAILY 07/22/23 03/19/25 03/11/25 History
torsemide 5 mg tablet 5 mg PO SUWE 02/12/25 03/19/25 03/10/25 History
Review of Systems
-
Unable to Obtain full review of systems at this time due to: Other (Per HPI)
Vitals / Labs / Diagnostic Testing
Vital Signs
Temp Pulse Resp BP Pulse Ox
97.5 F 133 33 122/66 97
03/20/25 07:13 03/20/25 05:30 03/20/25 05:30 03/20/25 05:00 03/20/25 05:30
Lab Data
03/20/25 05:07
03/20/25 05:07
Laboratory Results
03/19/25 03/19/25
22:51 23:40
PT 25.0 H
INR 2.25
APTT 40.4 H
pH 7.38
pCO2 24 L
pO2 71 L
HCO3 14.2 L*
O2 Delivery Level
Microbiology
03/18/25 17:02 Blood/Venous Blood Culture - Preliminary
Positive culture in progress
03/18/25 17:02 Blood/Venous Gram Stain - Final
03/18/25 18:13 Urine Urine Culture - Preliminary
Gram negative bacilli
03/18/25 17:01 Blood/Venous Blood Culture - Preliminary
Klebsiella pneumoniae group
03/18/25 17:01 Blood/Venous Gram Stain - Final
03/18/25 17:03 Nasal Swab Influenza Types A & B (NOLVIA) - Final
Negative for Influenza A & B, NAAT
Negative results must be combined with clinical observations
and patient history.
Nucleic Acid Amplification test (NAAT)performed on the
[employer] platform.
Diagnostic Testing:
Physical Exam
-
HEENT: Normocephalic, Anicteric and Moist Mucous Membranes
Cardiovascular: Irregular Rhythm, Murmur and Peripheral Edema (Trace)
Respiratory: Clear (Prolonged expiratory time), Rales (Few basilar), Rhonchi (n) and Accessory Resp Muscle Use (Mild to moderate)
GI: Soft, Non Distended and Non Tender
Neurology: Awake, Alert and No Motor Deficits
Skin: Warm and Good Color
General: Respiratory Distress (Mild to moderate)
Assessment
-
79-year-old male with a 1 pack year smoking history, hypertension, nephrolithiasis, pulmonary nodule, atrial fibrillation, and renal transplantation on mycophenolate and prednisone with recent ultrasound showing transplant hydronephrosis presented
with 2 days of fever found to be septic with ELIZABETH-mobile marketing specialist consulted for sepsis/shock/ELIZABETH 03/20/2025.
Urosepsis with shock unresponsive to fluids requiring pressors
ELIZABETH-BUN/creatinine-105/5.8
Hydronephrosis in transplanted kidney
Hypoxemic respiratory failure
Chronic severe inflammatory interstitial pneumonitis
Renal transplantation since 2018
Chronic immunosuppression
Anemia-hemoglobin 6.3
Thrombocytopenia-platelet 110
Atrial fibrillation with rapid ventricular response
Leukocytosis
Hypocalcemia
Conditions present prior to admission:
End-stage renal disease status post renal transplantation-[facility] 2018-follows at [facility]-Dr. Hines and locally Dr. Muhammad
Permanent atrial fibrillation/Eliquis.
Hypertension.
BPH.
Postherpetic neuralgia.
Chronic back pain.
Pulmonary nodule right base with negative PET followed by Dr. Olivarez-next CT 02/2025.
Fatty liver.
Inguinal hernia
Osteoporosis.
Hernia repair.
Cataract 2020. Transplant kidney December 2018.
Plan
Admit patient to medical intensive care unit for persistent hypotension despite fluid resuscitation requiring pressors
Supplement oxygen as needed
High flow oxygen if needed
BiPAP if necessary
Intubate and mechanically ventilate if necessary-Dr. Yousif reviewed with patient if further deterioration might require intubation-he stated that he would want intubation
Aspiration precautions
Nebulizers if needed
Follows Dr. Olivarez for pulmonary nodule and possible interstitial lung disease-ILD serology negative-radiographs appear to have severe interstitial pneumonitis
Patient currently on mycophenolate
Interstitial lung disease serology unrevealing
Consider pulse steroids if oxygenation does not improve and not felt to be fluid overload related
Obtain cultures
Empiric antibiotics ampicillin/sulbactam initiated
Infectious disease consultation
Monitor leukocytosis
Nephrology evaluation
Urology evaluation
Fluid resuscitation with 30 mL/kg crystalloid-preferably lactated ringer-(less ELIZABETH) with subsequent boluses as needed
Monitor lactate
Follow CVP if possible
Attempt noninvasive bedside tissue perfusion evaluation to see if fluid bolus responsive
Measure pulse pressure and stroke volume variation if patient on ventilator, passively breathing without arrhythmia and with temporary large tidal volume ventilation and if > 13% then likely fluid bolus responsive
If patient active then consider measuring bedside leg lift for 3 minutes and if cardiac output increases or if there is a rise of 2-4 on end-tidal CO2 then fluid bolus
If bedside ultrasound available then measure IVC diameter variation to evaluate for fluid bolus responsiveness
Begin pressors as needed for MAP goal of 65-Norepinephrine first, then Vasopressin and consider Angiotensin II if continues to be hypotensive
Consider methylene blue if available-specific inhibitor of induced nitric oxide synthase iNOS and its downstream enzyme soluble guanylate cyclase-noninferiority study shown to reduce time to vasopressor discontinuation, decreased ICU length of stay,
hospital stay but no change in mortality-published Critical Care 07/23/2022
If persistently hypotensive then consider checking random cortisol-hydrocortisone if random less than 3, if 3-15 then consider ACTH stimulation test
If persistently hyperthermic then correcting hyperthermia can decrease pressor requirements, increased chances of reversal of shock and decrease mortality
DVT prophylaxis-on Eliquis-
Early nutrition if possible
Early mobilization/bedside range of motion
The patient last saw Dr. Olivarez 03/08/2025 for ILD, restrictive lung disease and pulmonary nodule-has appointment for PFT 04/28/2025 at 3 PM [address] appointment [address] Olivarez 04/29/2025 at 11:15 AM
Critical care statement: A total of 65 minutes of critical care time was provided for this patient today. This includes management of unstable vital signs, evaluation of the patient at bedside, reviewing the patient's pertinent medical records
including radiographs, microbiology, laboratory evaluations, and discussion with primary team, consultants, pharmacy, nutrition, physical therapy, case management, charge nurse, critical care nursing, and respiratory therapy.
Office note Dr. Olivarez 03/08/2025 in regards to pulmonary nodule:
CT imaging August 2024 revealed approximately 1.3 cm nodular opacity in the right base, not present on previous exam.
Underwent a repeat CT in November 2024 Showed resolution of previously seen right basilar nodule but a new 1.4 cm nodule in the right lower lobe.
Underwent a PET scan 12/17/2024 which showed evolution of right lower lobe nodule, now presenting as large ground glass nodule measuring up to 3.9 cm. Highly suggestive of benign infectious/inflammatory process.
Repeat CT 02/2025: now demonstrate bilateral peribronchiolar ground glass infiltrate bilaterally.Unclear etiology, differential Dx includes inflammatory/infectious process vs pulmonary edema.there is evidence of small bilateral pleural effusions,
with history of aortic stenosis pulmonary edema except possibility.With ongoind immunosupresion will need to keep in my oportunistic infection.
Will obtain ILD serology, proBNP and inflmmatory markers.
Bronchoscopy with BAL may be required-if there is no evidence of volume overload.-Of note He was treated with an antibiotic and steroids middle of October 2024. He denies any active Symptoms suggesting infection.If He does produce any phlegm, we will
submit sputum culture
Diagnostic data:
Chest x-ray 03/18/2025-severe chronic inflammatory interstitial pneumonitis
CT abdomen and pelvis 03/18/2025-severe acute edema and inflammation around right lower quadrant renal transplantation, severe hydronephrosis, severe bilateral atrophic sen[place] kidneys, small bilateral pleural effusions, increased coarse interstitial
markings throughout both lower lobes, right middle lobe with severe chronic inflammatory interstitial pneumonitis
ILD serology 03/10/2025-negative rheumatoid factor, ROXANNE, SSA antibodies, scleroderma antibody, proteinase [address] chest 02/23/2025 ReviewedUriel Leong 03/08/2025 06:25:26 AM EDT >1. Resolution of previously seen right lower lobe 1.4 cm nodule.2. Mild to moderate changes of pulmonary fibrosis as seen previously.3. Superimposed upon the changes of
fibrosis, there is new large amount of bilateralperibronchovascular interstitial and groundglass opacity with small amount of bilateral upper lungairspace consolidation as detailed above. There are very small bilateral pleural effusions. Whileedema
is a differential consideration, findings are more suggestive of a superimposed infectious orinflammatory process. There is associated mild mediastinal adenopathy.-
PET CT 12/17/2024 reviewed: Uriel Leong 03/08/2025 06:25:44 AM EDT >The previously seen solid right lower lobe nodule has evolved/changed in morphology, nowpresenting as a large groundglass nodule measuring up to 3.9 cm which demonstrates
max SUV 4.7(delayed 5.4). Otherwise, no suspicious FDG avid lesions.ABDOMEN and PELVIS:No suspicious FDG-avid lesions.SKELETON:No suspicious FDG-avid lesions.This suggests inflammatory process.-
CT chest 2023: Reviewed Uriel Leong 07/05/2023 08:49:26 AM >1. No significant acute abnormality identified in the chest within the limits of unenhanced CT, asdescribed above. Probable residual fibrotic changes in the lungs, less
likely active pneumonitis.-
CT chest 02/27/2023: Reviewed Uriel Leong 03/06/2023 08:42:39 AM >There has been significant further improvement in the patient's bilateral parenchymal airspacedisease when compared with the previous examinations.Currently, there is mild
left and moderate diffuse coarsening of the interstitial markingsthroughout both lungs which at this point may be residual scarring/fibrosis rather than acuteinflammatory disease.There is mild cardiomegalyThere is atherosclerosis-
CT chest 11/23/2022: showed evidence of postinflammatory fibrosis. Groundglass opacities have resolved..
Pulmonary function testing ( 07/13/2024� ):FEV1: 3.4 L-107%FVC:3.96 L-89%FEV1/FVC ratio:86%T.52 L-73%RV:44%ERV:RV/TLC ratio:23%DLCO: 13.69-50%DLCO/VA: 70%
Echo 05/19/24: Normal biventricular size and function. EF 65%. Severely dilated LA. Paradoxical low flow low gradient aortic stenosis. Mild AR.
Data Reviewed
-
PFT: Report reviewed by me
EKG: Report reviewed by me
Radiology: Image personally visualized and interpreted and Report reviewed by me
CT Scan: Image personally visualized and interpreted and Report reviewed by me
Medical Tests (Nuc Med, Echo etc): Report reviewed by me
Labs: Labs reviewed by me
Old Records: Reviewed
Critical Care Time (in minutes): 65
[2025-03-20] MEDS: CARDURA 2 MG PO ×2 (08:24→19:30)
[2025-03-20] MEDS: ELIQUIS 5 MG PO ×2 (08:24→19:32)
[2025-03-20] MEDS: DELTASONE 2.5 MG PO ×2 (08:24→19:32)
[2025-03-20] MEDS: LOPRESSOR 25 MG PO ×2 (08:24→19:31)
[2025-03-20] MEDS: MYFORTIC DELAYED REL. 720 MG PO ×2 (08:24→19:32)
[2025-03-20] MEDS: SENOKOT-S PO (08:25)
[2025-03-20 08:27] LABS: Mean Corp Hgb Conc. 34.0 g/dL (33.0-37.0); Mean Corpuscular Volume 90.4 fL (80.0-94.0); Platelet Count 110 10^3/uL (130-400); Red Cell Dist. Width 14.3 % (11.5-14.5)
[2025-03-20 08:28] LABS: Absolute Neutrophils -Man Diff 13.2 10^3/uL (1.4-6.5)
[2025-03-20 08:29] LABS: Acanthocytes Occasional; Anisocytosis 1+; Hypochromasia 1+; Normal RBC Morphology No; Platelets Checked Yes; Poikilocytosis 1+
[2025-03-20 08:30] LABS: Ovalocytes 1+; Total Cells Counted 100
--- NOTE | 2025-03-20 09:05 | PTCARENOTE ---
Rec'd pt at 0700. Pt AAOx3 on NIV 24/10 with 70% fio2, pox 98%. Follows commands, JEFFERSON. Monitor Afib with occas PVCs rate 100-120's. Pt c/o mild SOB but tolerable, spoke with Dr. Yousif this am about possibility of requiring intubation, pt agreeable
if needed. NIV mask removed briefly for pt to take am meds. Pt turned and repositioned. Pt updated on plan of care.
--- NOTE | 2025-03-20 09:50 | W.PN.ID1 ---
Date of Service
Date of Service: March 20, 2025
Today's Communication
replace cefepime with Unasyn.
Assessment / Plan
# donor renal txp on immunosuppressive drugs
# Klebsiella bacteremia
# Transplant kidney pyelonephritis
# Obstructive uropathy of transplant kidney, esteves placed 03/15
# Fever - resolving
# Leukocytosis, worse
# ELIZABETH on CKD worse
# Acute hypoxemic respiratory failure - on BiPAP. Suspect pulm edema
-Repeat bcx's pending
-Ucx: Klebsiella and Enterococcus
- Replace cefepime with Unasyn 3g IV q24H, renally ajusted
- Trend wbc and O2 requirement
Conditions present on admission
donor renal transplant on mycophenolate, belatacept, prednisone 2.5 twice daily 2018
Atrial fibrillation
Post-COVID chronic inflammatory interstitial pneumonitis
Hypertension
BPH
Postherpetic neuralgia
Chronic back pain
Chief Complaint
-: UTI
Subjective / Review of Systems
Events note. Pt transferred to ICU due to increased work of breathing.
+ SOB
Vital Signs / Physical Exam
Vital Signs
Vital Signs
Temp Pulse Resp BP Pulse Ox
97.5 F 119 28 125/68 98
03/20/25 07:13 03/20/25 09:00 03/20/25 09:00 03/20/25 09:00 03/20/25 09:00
Physical Exam
Constitutional: Acutely Ill
Cardiovascular: S1/S2 (tachycardic)
Pulmonary: Rales (crackles bilateral) and Other (labored breathing, on BiPAP)
Gastrointestinal: Soft, Non Tender, Non Distended and Normal Bowel Sounds
Genito-Urinary: Esteves, Clear Urine and Other (RLQ transplant kidney nontender)
Extremities: Negative Edema
Neurological: AO x 3
Objective Data
Lab Data
Lab Results
03/20/25 05:07
03/20/25 05:07
PT 25.0 Sec (11.4-14.6) H 03/19/25 23:40
INR 2.25 03/19/25 23:40
APTT 40.4 Sec (23.4-35.0) H 03/19/25 23:40
Estimated Creat Clear 11 ml/min 03/20/25 05:07
Lactic Acid 1.2 mmol/L (0.7-2.0) 03/19/25 23:40
Total Bilirubin 0.5 mg/dl (0.2-1.3) 03/18/25 17:01
AST 31 U/L (17-59) 03/18/25 17:01
ALT 42 U/L (0-50) 03/18/25 17:01
Alkaline Phosphatase 86 U/L (38-126) 03/18/25 17:01
C-Reactive Protein > 270.00 mg/L (0.0-10.00) H 03/19/25 23:40
Most recent labs reviewed.
Micro Results:
03/18/25 18:13 Urine Culture - Preliminary
Urine Klebsiella pneumoniae
Enterococcus species
03/18/25 17:02 Blood Culture - Preliminary
Blood/Venous Gram negative bacilli
Gram Stain - Final
03/18/25 17:01 Blood Culture - Preliminary
Blood/Venous Klebsiella pneumoniae group
Gram Stain - Final
03/18/25 23:17 MRSA Screen - Final
Nose No Methicillin Resistant Staphylococcus aureus isolated.
03/20/25 05:07 Blood Culture - Pending
Blood/Venous
03/20/25 05:34 Blood Culture - Pending
Blood/Venous
03/18/25 17:03 Influenza Types A & B (NOLVIA) - Final
Nasal Swab Negative for Influenza A & B, NAAT
Negative results must be combined with clinical observations
and patient history.
Nucleic Acid Amplification test (NAAT)performed on the
[employer] platform.
03/20/25 CXR: Grossly stable severe diffuse bilateral interstitial and airspace disease which may reflect combination of pulmonary edema and pneumonia. Cannot rule out component of underlying chronic interstitial lung disease.
03/19/25 CXR: Progressive parenchymal disease process, as described. Differential includes progressive congestive heart failure with pulmonary edema versus diffuse bilateral pneumonia, right greater than left.
03/18/25 CT a/p: Severe acute edema and inflammation around the right lower quadrant renal transplant which is new from 12/17/2024. Severe hydronephrosis of the right intrarenal collecting system and right renal pelvis which has increased. ACUTE
PYELONEPHRITIS of the RIGHT LOWER QUADRANT RENAL TRANSPLANT is considered most likely. Acute infarction of the renal transplant is a less likely diagnostic possibility. Severe diffuse urinary bladder wall thickening with surrounding perivesical
inflammation which appears new from 12/17/2024 suggesting SEVERE ACUTE CYSTITIS. Esteves catheter in the urinary bladder. Mildly enlarged prostate gland.
[2025-03-20] MEDS: MORPHINE SULFATE 1 MG IV ×3 (10:42→20:59)
[2025-03-20] MEDS: UNASYN IV (11:38)
--- NOTE | 2025-03-20 11:44 | W.PN.NEPH.PH ---
Today's Communication / Plan
-
Hemodialysis acute
Assessment/Plan
-
Assessment
Sepsis syndrome, possible pyelonephritis
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
donor renal transplant with FSGS, recent T-cell rejection
Obstructive uropathy, Disla catheter in place
ELIZABETH..
Anemia
Hyponatremia
lactic acidosis
Plan
Follow-up BMP
He had been making outpatient arrangements for eventual ESRD and transplant evaluation at [place]/previously on peritoneal dialysis prior to transfer
Antibiotic= blood cultures gram-negative/Klebsiella
Continue immunosuppressive regimen including prednisone and mycophenolate. He is not yet due for belatacept.
Significantly iron deficient but will refrain from IV iron in setting of bacteremia/will not benefit from Epogen with significant anemia
With worsening clinical status and significant right pulmonary edema on initial x-ray 1700 hrs. on 03/19 showed some improvement at 1 AM with diuresis about 1200 out though still significant azotemia worsening.
Will initiate hemodialysis via nontunneled dialysis catheter because of bacteremia.
Discussed with nocturnal AIRLINE STATION AGENT at around 6 AM and asked him to place consult for interventional radiology.
Awaiting IR for placement then dialysis DAREK.
He is on the BiPAP and is comfortable
Nonoliguric
All physicians involved in this case have been notified
Maintain Disla

33 minutes critical care time
High risk medical complexity
-
-
Date of Service: March 20, 2025
CC / HPI / ROS
-
Chief Complaint:
Sepsis
History of Present Illness:
Acute kidney injury multifactorial obstructive uropathy, sepsis decreased effective arterial blood volume
Review of Systems:
Decompensated overnight
BiPAP
Disla
Labs
-
Labs:
WBC 14.1 10^3/uL (4.8-10.8) H 03/20/25 05:07
RBC 2.28 10^6/uL (4.70-6.10) L 03/20/25 05:07
Hgb 7.0 g/dL (13.0-18.0) L 03/20/25 05:07
Hct 20.6 % (39.0-52.0) L* 03/20/25 05:07
Plt Count 110 10^3/uL (130-400) L 03/20/25 05:07
Sodium 135 mmol/L (135-145) 03/20/25 05:07
Potassium 4.2 mmol/L (3.5-5.1) 03/20/25 05:07
Chloride 103 mmol/L (98-107) 03/20/25 05:07
Carbon Dioxide 17 mmol/L (22-30) L 03/20/25 05:07
BUN 105 mg/dl (9-20) H* 03/20/25 05:07
Creatinine 5.8 mg/dL (0.7-1.3) H* 03/20/25 05:07
eGFR 9.29 03/20/25 05:07
Glucose 107 mg/dl (70-99) H 03/20/25 05:07
Calcium 8.2 mg/dl (8.4-10.2) L 03/20/25 05:07
Phosphorus 5.8 mg/dl (2.5-4.5) H 03/20/25 05:07
Pln-H-Yprmzqfdmmy Pept > 77892 pg/ml 03/19/25 23:51
Albumin 3.1 g/dl (3.5-5.0) L 03/18/25 17:01
Physical Exam
-
Vital Signs:
Vital Signs
Temp Pulse Resp BP Pulse Ox
98.1 F 104 27 107/57 94
03/20/25 11:05 03/20/25 11:30 03/20/25 11:30 03/20/25 11:00 03/20/25 11:30
--- NOTE | 2025-03-20 11:50 | PTCARENOTE ---
No changes in assessment. Family updated via phone. Pt continues to tolerate NIV, PRN Morphine ordered and given for dyspnea, pt states having some relief after medication administration.
--- NOTE | 2025-03-20 12:16 | PTCARENOTE ---
IR currently at bedside to place HD cath.
--- NOTE | 2025-03-20 12:41 | W.PN.HOSP.TC ---
Today's Communication/Plan
-
Plan for hemodialysis today
Continue with IV antibiotic
NIV per automobile sales consultant
Monitor urinary output
Assessment / Plan
Assessment / Plan
General: No Apparent Distress
HEENT: NormoCephalic, Moist mucous membranes and Atraumatic
Respiratory: Clear; No Wheezes, Rales, Rhonchi or Crackles
Cardiac: S1/S2, Regular Rhythm and Murmur (3 out of 6 systolic murmur); No Rub, Peripheral Edema or JVD
GI: Soft, Non Tender, Non Distended and Normal Bowel Sounds; No Organomegaly
Rectal: Deferred by Provider
Musculoskeletal: No Clubbing, No Cyanosis and No Edema
Skin: No Rash
Neuro: AO x 3 and Nonfocal/grossly intact
79-year-old with history of end-stage renal disease status post kidney transplant 2018 on antirejection medications, hypertension, hyperlipidemia, atrial fibrillation on , urinary retention status post catheter placement on Saturday presenting
to the emergency department with fever and chills as well as weakness. CT scan consistent with transplant pyelonephritis. He still has persistent hydro which likely reflects chronic hydro compared to his prior ultrasound. Known anemia. Picture
consistent with pyelonephritis with bandemia and lactic acidemia consistent with sepsis.
PLAN:
Acute hypoxic respiratory failure likely secondary to pulmonary edema versus pneumonia versus interstitial lung disease
-May require pulsed dose steroids. Will defer to critical care
-Currently on NIV. Patient okay for intubation if required.
-Already on antibiotics.
Sepsis associated with acute kidney injury, lactic acidosis secondary to Klebsiella bacteremia likely secondary to urinary tract infection
- Status post 30 mL/kg crystalloid in ED
- Blood cultures with Klebsiella identification noted. Urine culture also positive for Klebsiella. Repeat surveillance cultures in lab
- Will continue with IV cefepime. Renally adjusted.
- Can discontinue azithromycin
- ID following
Hydronephrosis - Resolving, cannot rule out post obstructive polyuria. Catheter placed by Dr. Jim as outpatient.
- maintain urinary catheter for now
- patient denies any alpha blockade but considering TURP
- monitor i/os
- f/u u/s after tx of elizabeth
- continue cardura with hold parameters
ELIZABETH - Persistent ELIZABETH despite Disla placement. Recent Treatment for rejection in December.
Metabolic acidosis
-IV fluids adjusted to bicarbonate
- Status post diuretics yesterday
- avoid nephrotoxins and renal dose medications
- Plan to start patient on hemodialysis. [facility] for catheter placement
- Volume overload should help with hypoxemia.
Transplant
- continue cellcept and prednisone
Anemia - Macrocytic anemia, recent normal sats but given IV iron infusion without improvement. Denies melena. Colonoscopy November ->single non-bleeding colonic angioectasia and internal hemorrhoids. On eliquis.
- Ferritin level elevated. Hemoglobin at 7. Will transfuse additional unit of PRBC.
- type and screen and trend H&H for now
- Transfuse hgb <7
AFIB Permanent
- continue metoprolol (hold parameters) and eliquis
DVT PPX - on eliquis
Code status - Full Code
Discussed plan with automobile sales consultant, nephrology and infectious disease and interventional radiology
Discussed with RN
Total Critical Care Time 45 minutes. I was immediately available to the patient and staff. I personally examined, reviewed labs, diagnostic images/reports, interpretations, treatment plans, discussed patient care with other providers and family
or caregivers (if patient is unable to make decisions), entered orders as appropriate and documented the medical record.
Anticipated Discharge: > 48 hours
Subjective/Interval History
-
Date of Service: March 20, 2025
Overnight events noted
Patient with severe hypoxemia and was transferred to ICU
Currently patient on noninvasive
Patient received additional dose of diuretics overnight
Hemoglobin of 7 this morning
Objective Data
-
Labs:
Laboratory Results
03/20/25
05:07
WBC 14.1 H
Hgb 7.0 L
Hct 20.6 L*
Plt Count 110 L
Sodium 135
Potassium 4.2
Chloride 103
Carbon Dioxide 17 L
BUN 105 H*
Creatinine 5.8 H*
Glucose 107 H
Calcium 8.2 L
Vital Signs:
Vital Signs
Temp Pulse Resp BP Pulse Ox
98.1 F 104 27 107/57 93
03/20/25 11:05 03/20/25 11:30 03/20/25 11:30 03/20/25 11:00 03/20/25 11:44
I&O
03/19/25 03/20/25 03/21/25
06:59 06:59 06:59
Intake Total 2673 / 2673
Output Total 200 / 200 1200 / 1280 300 / 300
Balance -200 / -200 1473 / 1393 -300 / -300
--- NOTE | 2025-03-20 12:50 | W.PN.IRAD.PR ---
Procedure Note
-
Temp HD cath placed at [facility] under US guidance. No immediate complications. CXR pending.
--- NOTE | 2025-03-20 13:06 | PN.IRAD.UPD ---
Update Note - IRAD
- -
Patient entered into the worklist for iv team daily rounds . Entered by Flores BELL
[2025-03-20] MEDS: FLEXBUMIN 25% FOR HEMODIALYSIS 12.5 GRAMS IV ×2 (13:49→14:54)
[2025-03-20] MEDS: MANNITOL 25% 12.5 GRAMS IV ×2 (13:49→14:54)
--- NOTE | 2025-03-20 14:11 | W.PN.NEPH.HD ---
Assessment
-
First dialysis treatment tolerating so far actually minute for tomorrow see orders
Progress Note - Hemodialysis
-
Date of Service: March 20, 2025
Duration: 30 minutes and 2 hours
Potassium Bath: 2
Calcium Bath: 2.5
Opti-Dialyzer: 160
Ultrafiltration: Other
Blood Flow: 300
Dialysate Flow: Other
EPO: Yes
[2025-03-20] MEDS: RETACRIT 10000 UNITS IV (14:53)
[2025-03-20 17:29] LABS: B.E. -1.4 mmol/L; HCO3 22.4 mmol/L (21-28); O2 Saturation % 94.7 % (94-98); PCO2 33 mmHg (35-48); PO2 64 mmHg (83-108)
[2025-03-20 18:49] LABS: Hepatitis B Surface Antigen Negative (Negative)
--- NOTE | 2025-03-20 19:05 | PTCARENOTE ---
1550-Pt with increased restlessness/WOB, PRN Morphine given. HD completed at bedside. 1630-Pt continues to be restless and now becoming mildly confused, attempting to get OOB. Informed pt that he is on breathing mask and cannot get OOB, pt stated
'oh that's right' and laid back in bed. Within a few moments pt attempting to get OOB. Bed alarm in place. Dr. Yousif notified, ABG drawn. Po2 64, fio2 increased to 80%.
[2025-03-20 19:07] LABS: Hepatitis C Antibody Negative (Negative)
[2025-03-20] MEDS: SENOKOT-S 1 TABLET PO (19:32)
--- NOTE | 2025-03-20 20:44 | PTCARENOTE ---
assumed care, pt restless, disoriented to time, JEFFERSON and follows commands, denies pain, Afib on the monitor c PVCs, + pulses, lungs coarse throughout, NIV 14/6 80% sats 97%, RR 40's, masked removed for mouth care and PO meds, BSx4, esteves c sarah
output, 20G RAC, 18G LFA, HD cath RIJ, @ bedside and updated, she was upset that I made aware to her the severity of the pts status that she feels wasn't conveyed to her, pt was agreeing and understood everything that was stated, emotional
support provided, CHG bath, call tao within reach, bed alarm applied, otherwise refer to documentation.
[2025-03-21] VITALS (99 sets, daily range): BP systolic 65–170; BP diastolic 39–100; BMI 23.3
--- NOTE | 2025-03-21 00:44 | PTCARENOTE ---
systems reviewed, pt restless and forgetful @ x's, denies pain or SOB, RR 40's, attempted to reposition pt several times with no relief in his discomfort, he states the mask is just uncomfortable, otherwise refer to documentation.
[2025-03-21] MEDS: MORPHINE SULFATE 1 MG IV (01:17)
[2025-03-21] MEDS: PRECEDEX 100 IV ×3 (02:04→19:52)
--- NOTE | 2025-03-21 03:40 | PTCARENOTE ---
systems reviewed, labs sent, pt becoming increasingly more restless, Ox3 follows commands and JEFFERSON, just continually adjusting the mask and pulling at it, refused morphine for resp distress, provider notified Dex ordered, otherwise refer to
documentation.
[2025-03-21 03:57] LABS: Hematocrit 21.4 % (39.0-52.0); Hemoglobin 7.2 g/dL (13.0-18.0); Mean Corp Hgb Conc. 33.6 g/dL (33.0-37.0); Mean Corpuscular Volume 91.8 fL (80.0-94.0); Red Cell Dist. Width 14.6 % (11.5-14.5)
[2025-03-21 04:26] LABS: Blood Urea Nitrogen 78 mg/dl (9-20); Calcium 7.9 mg/dl (8.4-10.2); Carbon Dioxide 24 mmol/L (22-30); Chloride 99 mmol/L (98-107); Estimated Creatinine Clearance 16 ml/min; Glucose 117 mg/dl (70-99); Potassium 4.1 mmol/L (3.5-5.1); Sodium 133 mmol/L (135-145); eGFR 14.51
[2025-03-21 04:34] LABS: Platelet Count 81 10^3/uL (130-400)
[2025-03-21 04:35] LABS: Absolute Neutrophils -Man Diff 12.7 10^3/uL (1.4-6.5)
[2025-03-21 04:36] LABS: Normal RBC Morphology No; Platelets Checked Yes; Poikilocytosis 1+
[2025-03-21 04:37] LABS: Acanthocytes Slight; Burr Cells Slight; Ovalocytes Slight; Rouleaux Slight; Tear Drop Red Blood Cells Slight; Total Cells Counted 100
--- NOTE | 2025-03-21 07:27 | W.PN.INTV ---
Today's Communication / Plan
Recommendations
Antibiotics
Hemodialysis
Noninvasive ventilation
Attempt to wean FiO2
Not significantly improved-empiric trial of high-dose steroids
Assessment
-
79-year-old male with a 1 pack year smoking history, hypertension, nephrolithiasis, pulmonary nodule, atrial fibrillation, and renal transplantation on mycophenolate and prednisone with recent ultrasound showing transplant hydronephrosis presented
with 2 days of fever found to be septic with ELIZABETH-radio rigger consulted for sepsis/shock/ELIZABETH 03/20/2025.
Urosepsis with shock unresponsive to fluids requiring pressors
Bacteremia-Klebsiella
ELIZABETH-BUN/creatinine-105/5.8
Hydronephrosis in transplanted kidney
Hypoxemic respiratory failure
Chronic severe inflammatory interstitial pneumonitis
Renal transplantation since 2018
Chronic immunosuppression
Anemia-hemoglobin 6.3
Thrombocytopenia-platelet 110
Atrial fibrillation with rapid ventricular response
Leukocytosis
Hypocalcemia
Conditions present prior to admission:
End-stage renal disease status post renal transplantation-[facility] 2018-follows at [facility]-Dr. Hines and locally Dr. Muhammad
Permanent atrial fibrillation/Eliquis.
Hypertension.
BPH.
Postherpetic neuralgia.
Chronic back pain.
Pulmonary nodule right base with negative PET followed by Dr. Olivarez-next CT 02/2025.
Fatty liver.
Inguinal hernia
Osteoporosis.
Hernia repair.
Cataract 2020. Transplant kidney December 2018.
Plan
Critically ill on noninvasive ventilator and pressors
Supplement oxygen as needed-80%
Intubate and mechanically ventilate if necessary-Dr. Yousif reviewed with patient 03/20/2025 if further deterioration might require intubation-he stated that he would want intubation
Aspiration precautions
Nebulizers if needed
Follows Dr. Olivarez for pulmonary nodule and possible interstitial lung disease-ILD serology negative-radiographs appear to have severe interstitial pneumonitis
Patient currently on mycophenolate
Interstitial lung disease serology unrevealing
High-dose steroids will be initiated as oxygenation has not improved and not felt to be entirely fluid overload related-trialing hemodialysis for fluid removal-currently on prednisone 2.5 mg twice daily
Follow radiographically-chest x-ray ordered 03/22/2025
Cultures reviewed
Blood cultures 03/18/2025-initial positive Klebsiella and subsequent blood cultures negative
MRSA screen negative
Urine culture-Klebsiella and Enterococcus
Influenza negative
Empiric antibiotics-on Unasyn
Infectious disease consultation noted-correspondence reviewed
Monitor leukocytosis
Nephrology evaluation
Hemodialysis as tolerated
Decrease IV fluids
Follow lactate
Norepinephrine as needed-add vasopressin if needed
DVT prophylaxis-on Eliquis
Early nutrition if possible-might require feeding tube
Early mobilization/bedside range of motion
Prognosis unfortunately poor with multiorgan dysfunction-goals of care discussion should be ongoing
The patient last saw Dr. Olivarez 03/08/2025 for ILD, restrictive lung disease and pulmonary nodule-has appointment for PFT 04/28/2025 at [address] appointment [address] Olivarez 04/29/2025 at 11:15 AM
Critical care statement: A total of 45 minutes of critical care time was provided for this patient today. This includes management of unstable vital signs, evaluation of the patient at bedside, reviewing the patient's pertinent medical records
including radiographs, microbiology, laboratory evaluations, and discussion with primary team, consultants, pharmacy, nutrition, physical therapy, case management, charge nurse, critical care nursing, and respiratory therapy.
Office note Dr. Olivarez 03/08/2025 in regards to pulmonary nodule:
CT imaging August 2024 revealed approximately 1.3 cm nodular opacity in the right base, not present on previous exam.
Underwent a repeat CT in November 2024 Showed resolution of previously seen right basilar nodule but a new 1.4 cm nodule in the right lower lobe.
Underwent a PET scan 12/17/2024 which showed evolution of right lower lobe nodule, now presenting as large ground glass nodule measuring up to 3.9 cm. Highly suggestive of benign infectious/inflammatory process.
Repeat CT 02/2025: now demonstrate bilateral peribronchiolar ground glass infiltrate bilaterally.Unclear etiology, differential Dx includes inflammatory/infectious process vs pulmonary edema.there is evidence of small bilateral pleural effusions,
with history of aortic stenosis pulmonary edema except possibility.With ongoind immunosupresion will need to keep in my oportunistic infection.
Will obtain ILD serology, proBNP and inflmmatory markers.
Bronchoscopy with BAL may be required-if there is no evidence of volume overload.-Of note He was treated with an antibiotic and steroids middle of October 2024. He denies any active Symptoms suggesting infection.If He does produce any phlegm, we will
submit sputum culture
Diagnostic data:
Chest x-ray 03/18/2025-severe chronic inflammatory interstitial pneumonitis
CT abdomen and pelvis 03/18/2025-severe acute edema and inflammation around right lower quadrant renal transplantation, severe hydronephrosis, severe bilateral atrophic [place] kidneys, small bilateral pleural effusions, increased coarse interstitial
markings throughout both lower lobes, right middle lobe with severe chronic inflammatory interstitial pneumonitis
ILD serology 03/10/2025-negative rheumatoid factor, ROXANNE, SSA antibodies, scleroderma antibody, proteinase [address] chest 02/23/2025 ReviewedUriel Leong 03/08/2025 06:25:26 AM EDT >1. Resolution of previously seen right lower lobe 1.4 cm nodule.2. Mild to moderate changes of pulmonary fibrosis as seen previously.3. Superimposed upon the changes of
fibrosis, there is new large amount of bilateralperibronchovascular interstitial and groundglass opacity with small amount of bilateral upper lungairspace consolidation as detailed above. There are very small bilateral pleural effusions. Whileedema
is a differential consideration, findings are more suggestive of a superimposed infectious orinflammatory process. There is associated mild mediastinal adenopathy.-
PET CT 12/17/2024 reviewed: Uriel Leong 03/08/2025 06:25:44 AM EDT >The previously seen solid right lower lobe nodule has evolved/changed in morphology, nowpresenting as a large groundglass nodule measuring up to 3.9 cm which demonstrates
max SUV 4.7(delayed 5.4). Otherwise, no suspicious FDG avid lesions.ABDOMEN and PELVIS:No suspicious FDG-avid lesions.SKELETON:No suspicious FDG-avid lesions.This suggests inflammatory process.-
CT chest 2023: Reviewed Uriel Leong 07/05/2023 08:49:26 AM >1. No significant acute abnormality identified in the chest within the limits of unenhanced CT, asdescribed above. Probable residual fibrotic changes in the lungs, less
likely active pneumonitis.-
CT chest 02/27/2023: Reviewed Uriel Leong 03/06/2023 08:42:39 AM >There has been significant further improvement in the patient's bilateral parenchymal airspacedisease when compared with the previous examinations.Currently, there is mild
left and moderate diffuse coarsening of the interstitial markingsthroughout both lungs which at this point may be residual scarring/fibrosis rather than acuteinflammatory disease.There is mild cardiomegalyThere is atherosclerosis-
CT chest 11/23/2022: showed evidence of postinflammatory fibrosis. Groundglass opacities have resolved..
Pulmonary function testing ( 07/13/2024� ):FEV1: 3.4 L-107%FVC:3.96 L-89%FEV1/FVC ratio:86%T.52 L-73%RV:44%ERV:RV/TLC ratio:23%DLCO: 13.69-50%DLCO/VA: 70%
Echo 05/19/24: Normal biventricular size and function. EF 65%. Severely dilated LA. Paradoxical low flow low gradient aortic stenosis. Mild AR.
Subjective Dataa
Subjective Data
Date of Service:
Date of Service: March 21, 2025
Chief Complaint: Back Sewer Follow Up and Pulmonary Follow Up
Subjective:
Intermittently agitated, low BP, hemodialysis initiated, currently on noninvasive ventilation and noncommunicative
Review of Systems
General: Other (Per HPI)
Objective Data
Data Reviewed
Vital Signs / I&O / Oxygen:
Vital Signs
Temp Pulse Resp BP Pulse Ox
98.5 F 102 31 107/61 98
03/21/25 07:26 03/21/25 06:00 03/21/25 06:00 03/21/25 06:00 03/21/25 06:00
Intake and Output
03/20/25 03/21/25 03/22/25
06:59 06:59 06:59
Intake Total 2673 / 2673 148.3 / 148.3
Output Total 1200 / 1270 940 / 940
Balance 1473 / 1403 -791.7 / -791.7
SaO2 [NIV (Non Invasive 98
Ventilation)]
SaO2 98
Nasal Cannula flow liters per 50
minute
Physical Exam
General: Respiratory Distress (Moderate)
HEENT: Normocephalic, Anicteric and Moist Mucous Membranes
Cardiovascular: Regular Rhythm and Murmur
Respiratory: Wheeze (n), Crackles (Basilar), Rhonchi (n), Accessory Resp Muscle Use (Mild to moderate) and Stridor (n)
GI: Soft, Non Distended and Non Tender
Neurology: No Motor Deficits and Lethargic
Skin: Warm, Good Color, Cyanosis (n), Jaundice (n) and Rash (n)
Labs/Micro/Reports
Lab Data
03/21/25 03:29
03/21/25 03:29
Laboratory Results
03/20/25
17:19
pH 7.44
pCO2 33 L
pO2 64 L
HCO3 22.4
O2 Delivery Level
Microbiology
03/18/25 17:01 Blood/Venous Blood Culture - Preliminary
Klebsiella pneumoniae group
03/18/25 17:01 Blood/Venous Gram Stain - Final
03/20/25 05:34 Blood/Venous Blood Culture - Preliminary
No Growth in 24 hours- Final report to follow
03/20/25 05:07 Blood/Venous Blood Culture - Preliminary
No Growth in 24 hours- Final report to follow
03/18/25 18:13 Urine Urine Culture - Preliminary
Klebsiella pneumoniae
Enterococcus species
03/18/25 17:02 Blood/Venous Blood Culture - Preliminary
Gram negative bacilli
03/18/25 17:02 Blood/Venous Gram Stain - Final
03/18/25 23:17 Nose MRSA Screen - Final
No Methicillin Resistant Staphylococcus aureus isolated.
03/18/25 17:03 Nasal Swab Influenza Types A & B (NOLVIA) - Final
Negative for Influenza A & B, NAAT
Negative results must be combined with clinical observations
and patient history.
Nucleic Acid Amplification test (NAAT)performed on the
[employer] platform.
[2025-03-21] MEDS: NEO-SYNEPHRINE 250 IV ×3 (07:45→19:52)
[2025-03-21] MEDS: SENOKOT-S PO (07:58)
[2025-03-21] MEDS: CARDURA PO ×2 (07:58→19:22)
[2025-03-21] MEDS: LOPRESSOR PO ×2 (07:58→19:22)
[2025-03-21] MEDS: MANNITOL 25% 12.5 GRAMS IV ×2 (08:10→09:30)
--- NOTE | 2025-03-21 09:29 | PTCARENOTE ---
Rec'd pt at 0700. HD being started at bedside. Pt on NIV, RASS -3 on Precedex gtts, Precedex lowered, within an hour pt awake and pulling at mask. Difficulty keeping pt calm and still for HD. Precedex gtts increased to previous rate. SBP 80-90's,
Lauro gtts started to keep SBP >90 for HD treatment. Monitor Afib 90-100's. +tachypnea, pox 96% on 80% fio2.
[2025-03-21] MEDS: DELTASONE PO (09:37)
[2025-03-21] MEDS: MYFORTIC DELAYED REL. PO (09:37)
[2025-03-21] MEDS: ELIQUIS PO (09:37)
[2025-03-21] MEDS: SOLU-MEDROL PF 60 MG IV ×3 (10:54→22:24)
[2025-03-21] MEDS: UNASYN IV (11:09)
--- NOTE | 2025-03-21 11:42 | W.PN.ID1 ---
Date of Service
Date of Service: March 21, 2025
Today's Communication
Continue Unasyn.
Assessment / Plan
# donor renal txp on immunosuppressive drugs
# Klebsiella bacteremia
# Transplant kidney pyelonephritis
# Obstructive uropathy of transplant kidney, esteves placed 03/15
# Acute hypoxemic respiratory failure - on BiPAP. Suspect pulm edema
# ELIZABETH on CKD - HD started 03/20
# Hypotension during HD, on pressor
# Fever - resolved
# Leukocytosis, stable
-Repeat bcx's negative
-Ucx: Klebsiella and Enterococcus
- Continue Unasyn 3g IV q24H (d2)
- On steroid,per Trust Mail Clerk
- O2 requirement
Pt critically ill in ICU.
Conditions present on admission
donor renal transplant on mycophenolate, belatacept, prednisone 2.5 twice daily 2018
Atrial fibrillation
Post-COVID chronic inflammatory interstitial pneumonitis
Hypertension
BPH
Postherpetic neuralgia
Chronic back pain
Chief Complaint
-: UTI
Subjective / Review of Systems
On BiPap
Vital Signs / Physical Exam
Vital Signs
Vital Signs
Temp Pulse Resp BP Pulse Ox
97.5 F 113 26 93/59 97
03/21/25 11:02 03/21/25 11:15 03/21/25 11:15 03/21/25 11:15 03/21/25 11:15
Physical Exam
Constitutional: Acutely Ill
Cardiovascular: S1/S2 (tachycardic)
Pulmonary: Rales and Other (Tachypneic, labored)
Gastrointestinal: Soft, Non Tender and Non Distended
Genito-Urinary: Esteves and Clear Urine
Extremities: Negative Edema
Objective Data
Lab Data
Lab Results
03/21/25 03:29
03/21/25 03:29
PT 25.0 Sec (11.4-14.6) H 03/19/25 23:40
INR 2.25 03/19/25 23:40
APTT 40.4 Sec (23.4-35.0) H 03/19/25 23:40
Estimated Creat Clear 16 ml/min 03/21/25 03:29
Lactic Acid 1.2 mmol/L (0.7-2.0) 03/19/25 23:40
Total Bilirubin 0.5 mg/dl (0.2-1.3) 03/18/25 17:01
AST 31 U/L (17-59) 03/18/25 17:01
ALT 42 U/L (0-50) 03/18/25 17:01
Alkaline Phosphatase 86 U/L (38-126) 03/18/25 17:01
C-Reactive Protein > 270.00 mg/L (0.0-10.00) H 03/19/25 23:40
Most recent labs reviewed.
Micro Results:
03/18/25 17:02 Blood Culture - Final
Blood/Venous Klebsiella pneumoniae
Gram Stain - Final
03/18/25 17:01 Blood Culture - Final
Blood/Venous Klebsiella pneumoniae
Gram Stain - Final
03/20/25 05:34 Blood Culture - Preliminary
Blood/Venous No Growth in 24 hours- Final report to follow
03/20/25 05:07 Blood Culture - Preliminary
Blood/Venous No Growth in 24 hours- Final report to follow
03/18/25 18:13 Urine Culture - Preliminary
Urine Klebsiella pneumoniae
Enterococcus species
03/18/25 23:17 MRSA Screen - Final
Nose No Methicillin Resistant Staphylococcus aureus isolated.
03/18/25 17:03 Influenza Types A & B (NOLVIA) - Final
Nasal Swab Negative for Influenza A & B, NAAT
Negative results must be combined with clinical observations
and patient history.
Nucleic Acid Amplification test (NAAT)performed on the
[employer] platform.
03/20/25 CXR: Grossly stable severe diffuse bilateral interstitial and airspace disease which may reflect combination of pulmonary edema and pneumonia. Cannot rule out component of underlying chronic interstitial lung disease.
03/19/25 CXR: Progressive parenchymal disease process, as described. Differential includes progressive congestive heart failure with pulmonary edema versus diffuse bilateral pneumonia, right greater than left.
03/18/25 CT a/p: Severe acute edema and inflammation around the right lower quadrant renal transplant which is new from 12/17/2024. Severe hydronephrosis of the right intrarenal collecting system and right renal pelvis which has increased. ACUTE
PYELONEPHRITIS of the RIGHT LOWER QUADRANT RENAL TRANSPLANT is considered most likely. Acute infarction of the renal transplant is a less likely diagnostic possibility. Severe diffuse urinary bladder wall thickening with surrounding perivesical
inflammation which appears new from 12/17/2024 suggesting SEVERE ACUTE CYSTITIS. Esteves catheter in the urinary bladder. Mildly enlarged prostate gland.
--- NOTE | 2025-03-21 11:58 | W.PN.HOSP.TC ---
Today's Communication/Plan
-
HD today
trend cbc
IV abx
On NIV-seems to heading towards intubation
monitor BP-wean pressors as tolerated
Assessment / Plan
Assessment / Plan
General: No Apparent Distress
HEENT: NormoCephalic, Moist mucous membranes and Atraumatic
Respiratory: dec bs, tachypneic, seen on NIV
Cardiac: S1/S2, Regular Rhythm and Murmur (3 out of 6 systolic murmur); No Rub, Peripheral Edema or JVD
GI: Soft, Non Tender, Non Distended and Normal Bowel Sounds; No Organomegaly
Rectal: Deferred by Provider
Musculoskeletal: No Clubbing, No Cyanosis and No Edema
Skin: No Rash
Neuro: Awake, and Nonfocal/grossly intact
79-year-old with history of end-stage renal disease status post kidney transplant 2019 on antirejection medications, hypertension, hyperlipidemia, atrial fibrillation on , urinary retention status post catheter placement on Saturday presenting
to the emergency department with fever and chills as well as weakness. CT scan consistent with transplant pyelonephritis. He still has persistent hydro which likely reflects chronic hydro compared to his prior ultrasound. Known anemia. Picture
consistent with pyelonephritis with bandemia and lactic acidemia consistent with sepsis.
PLAN:
Acute hypoxic respiratory failure likely secondary to pulmonary edema versus pneumonia versus interstitial lung disease
-Started on Solu-Medrol 60 mg every 6 hours
-Currently on NIV. Patient okay for intubation if required. Seems to be approaching towards intubation.
-Already on antibiotics.
Sepsis shock associated with acute kidney injury, lactic acidosis secondary to Klebsiella bacteremia likely secondary to urinary tract infection
- Status post 30 mL/kg crystalloid in ED
- Blood cultures with Klebsiella identification noted. Urine culture also positive for Klebsiella. Repeat surveillance cultures in lab
- Status post IV cefepime. Now on IV Unasyn.
- Can discontinue azithromycin
- ID following
Toxic metabolic encephalopathy likely secondary to shock versus ICU delirium versus hypoxemia versus uremia
- Currently on Precedex infusion.
Hydronephrosis - Resolving, cannot rule out post obstructive polyuria. Catheter placed by Dr. Jim as outpatient.
- maintain urinary catheter for now
- patient denies any alpha blockade but considering TURP
- monitor i/os
- f/u u/s after tx of elizabeth
- continue cardura with hold parameters
ELIZABETH - Persistent ELIZABETH despite Disla placement. Recent Treatment for rejection in December.
Metabolic acidosis
- Status post IV fluids with bicarbonate.
- Status post diuretics
- avoid nephrotoxins and renal dose medications
- Patient started on dialysis on 03/20/2025. Repeat session today.
- Volume overload should help with hypoxemia.
Transplant
- continue cellcept and prednisone
Anemia - Macrocytic anemia, recent normal sats but given IV iron infusion without improvement. Denies melena. Colonoscopy November ->single non-bleeding colonic angioectasia and internal hemorrhoids. On eliquis.
- Ferritin level elevated. Hemoglobin 7.2 status post 2 units of PRBC.
- type and screen and trend H&H for now
- Transfuse hgb <7
AFIB Permanent
- continue metoprolol (hold parameters) and eliquis
DVT PPX - on eliquis
Code status - Full Code
Total Critical Care Time_ 40 minutes. I was immediately available to the patient and staff. I personally examined, reviewed labs, diagnostic images/reports, interpretations, treatment plans, discussed patient care with other providers and
family or caregivers (if patient is unable to make decisions), entered orders as appropriate and documented the medical record.
Anticipated Discharge: > 48 hours
Subjective/Interval History
-
Date of Service: March 21, 2025
seen on HD
remains tachypneic
overnight events noted-started on precedex
Objective Data
-
Labs:
Laboratory Results
03/21/25
03:29
WBC 13.6 H
Hgb 7.2 L
Hct 21.4 L
Plt Count 81 L D
Sodium 133 L
Potassium 4.1
Chloride 99
Carbon Dioxide 24
BUN 78 H
Creatinine 4.0 H
Glucose 117 H
Calcium 7.9 L
Vital Signs:
Vital Signs
Temp Pulse Resp BP Pulse Ox
97.5 F 113 26 93/59 97
03/21/25 11:02 03/21/25 11:15 03/21/25 11:15 03/21/25 11:15 03/21/25 11:15
I&O
03/20/25 03/21/25 03/22/25
06:59 06:59 06:59
Intake Total 2673 / 2673 148.3 / 156.4 140.5 / 140.5
Output Total 1200 / 1270 940 / 960 80 / 80
Balance 1473 / 1403 -791.7 / -803.6 60.5 / 60.5
--- NOTE | 2025-03-21 12:29 | W.PN.UPDATE ---
Update Note
Progress Note Update
Reevaluated patient multiple times at the bedside
Progressive respiratory distress
Hemodialysis-only tolerated 1 L removal with ongoing hypotension
Respiratory rate nearly [address] Yousif updated and daughter Cely over the phone extensively-over 25-minute phone conversation-updated on current clinical medical issues and steady respiratory decline and need for potential intubation
Explained that if patient intubated patient unlikely will be able to be extubated because of underlying lung condition-steroids have been empirically initiated for possible inflammatory pneumonitis/noninfectious
understands and wants 'everything done' including intubation, daughter very reasonable and understanding, however, I sensed was overwhelmed and very tearful
Patient will be intubated, mechanically ventilated, sedated and supported
Continue with antibiotics, steroids, hemodialysis, pressors, excetra
Comfort a priority
Total time spent critical care thus far 95 minutes
[2025-03-21] MEDS: DIPRIVAN 100 IV ×2 (12:45→19:52)
--- NOTE | 2025-03-21 13:00 | PTCARENOTE ---
Pt remained restless throughout HD and difficult to complete treatment per HD RN. 1100-Pt with increased WOB, RR 40's and pt becoming more confused. When asked if he knew he was in the hospital pt stated 'no', pt requiring frequent reorienting. Pt
continuously pulling at NIV mask and kicking legs around in bed. Dr. Yousif notified and requested MD to come reassess pt. Decision made to intubate pt once HD completed. Family called and notified by Dr. Yousif. 1230-pt intubated at bedside #8
ETT 25cm right lip. Propofol gtts started, continues on Precedex gtts. Lauro infusing to keep SBP >90. PICC Line ordered, awaiting placement by VAT.
[2025-03-21] MEDS: SUBLIMAZE 50 MCG IV ×3 (13:13→23:59)
[2025-03-21 13:22] LABS: B.E. -1.1 mmol/L; HCO3 28.0 mmol/L (21-28); O2 Saturation % 95.7 % (94-98); PO2 89 mmHg (83-108)
[2025-03-21 13:28] LABS: PCO2 75 mmHg (35-48)
--- NOTE | 2025-03-21 14:06 | W.PN.NEPH.PH ---
Today's Communication / Plan
-
continue dialysis with third treatment planned for tomorrow Saturday
Assessment/Plan
-
This is a 79-year-old gentleman who follows in our office with Dr. Muhammad after donor renal transplant 2019 from [facility]. His transplant course has been complicated by development of nephrotic range proteinuria as well as recent
cellular rejection December of this year. The episodes treated with Solu-Medrol. His creatinine has risen quickly over time in the last several months. He has gone from a creatinine around 2 now up to 4.4. He was noted to have hydronephrosis of
the transplanted kidney recently on ultrasound as well as CT scan. Disla catheter was placed by urology a few days ago. His appetite has been poor as of late. Recently he also developed fever and malaise and this has brought him to the emergency
room. He was noted to be febrile in the ER. Blood pressure was stable though lower than his home readings of 132. He was 100 systolic in the ER. Creatinine was 4.7 with elevated lactate level and elevated white count. CT of the abdomen and
pelvis were performed with suspicion for pyelonephritis of the transplant. We are asked to assist in management of his renal issues.
Assessment
Sepsis syndrome, possible pyelonephritis
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
donor renal transplant with FSGS, recent T-cell rejection
Obstructive uropathy, Disla catheter in place
ELIZABETH..
Anemia
Hyponatremia
lactic acidosis
Plan
Follow-up BMP
He had been making outpatient arrangements for eventual ESRD and transplant evaluation at [place]/previously on peritoneal dialysis prior to transfer
Antibiotic= blood cultures gram-negative/Klebsiella
Continue immunosuppressive regimen including prednisone and mycophenolate. He is not yet due for belatacept.
Significantly iron deficient but will refrain from IV iron in setting of bacteremia/will not benefit from Epogen with significant anemia
Acute dialysis initiated 03/20 hemodialysis via nontunneled dialysis catheter because of bacteremia.
Patient seen earlier while on dialysis was agitated was on BiPAP and since then patient has been intubated. As discussed this with pulmonary medicine and primary hospitalist as well as critical care nursing.
Agree with IV steroids as well as patient's pulmonary status is not improving despite ultrafiltration though difficult with her blood pressures. We took off total of 2.5 L with 2 treatments

33 minutes critical care time
High risk medical complexity
-
-
Date of Service: March 21, 2025
CC / HPI / ROS
-
Chief Complaint:
Sepsis
History of Present Illness:
Acute kidney injury multifactorial obstructive uropathy, sepsis decreased effective arterial blood volume
Review of Systems:
Decompensated overnight
BiPAP
Disla
Labs
-
Labs:
WBC 13.6 10^3/uL (4.8-10.8) H 03/21/25 03:
RBC 2.33 10^6/uL (4.70-6.10) L 03/21/25 03:
Hgb 7.2 g/dL (13.0-18.0) L 03/21/25 03:
Hct 21.4 % (39.0-52.0) L 03/21/25 03:29
Plt Count 81 10^3/uL (130-400) L D 03/21/25 03:
Sodium 133 mmol/L (135-145) L 03/21/25 03:
Potassium 4.1 mmol/L (3.5-5.1) 03/21/25 03:
Chloride 99 mmol/L (98-107) 03/21/25 03:
Carbon Dioxide 24 mmol/L (22-30) 03/21/25 03:
BUN 78 mg/dl (9-20) H 03/21/25 03:
Creatinine 4.0 mg/dL (0.7-1.3) H 03/21/25:29
eGFR 14.51 03/21/25 03:29
Glucose 117 mg/dl (70-99) H 03/21/25 03:29
Calcium 7.9 mg/dl (8.4-10.2) L 03/21/25 03:29
Phosphorus 5.8 mg/dl (2.5-4.5) H 03/20/25 05:07
Iks-D-Rzpukrnkavn Pept > 63576 pg/ml 03/19/25 23:51
Albumin 3.1 g/dl (3.5-5.0) L 03/18/25 17:01
Physical Exam
-
Vital Signs:
Vital Signs
Temp Pulse Resp BP Pulse Ox
97.5 F 102 24 73/48 88
03/21/25 11:02 03/21/25 12:35 03/21/25 12:35 03/21/25 12:35 03/21/25 12:35
[2025-03-21 14:08] LABS: Triglycerides 182 mg/dl (10-149)
--- NOTE | 2025-03-21 14:12 | W.PN.NEPH.HD ---
Assessment
-
Patient was seen on dialysis earlier with hypotension and only 1 L ultrafiltration as patient is agitated and BiPAP.
Dialysis again tomorrow
Progress Note - Hemodialysis
-
Date of Service: March 21, 2025
Duration: 30 minutes and 2 hours
Potassium Bath: 2
Calcium Bath: 2.5
Opti-Dialyzer: 160
Ultrafiltration: Other
Blood Flow: 300
Dialysate Flow: Other
EPO: Yes
[2025-03-21] MEDS: SODIUM BICARBONATE 50 MEQ IV (14:38)
--- NOTE | 2025-03-21 14:48 | PTCARENOTE ---
Pt's and daughter in to visit, pt's very tearful, emotional support given. Updated on plan of care and pt's condition. Daughters verbalizing understanding, needs frequent reinforcement and comforting. becoming erratic and
extremely emotional in room/hallways, grabbing onto siderails in room and laying across pt in bed. slightly unsteady on her feet and frequent sitting and standing in room. Daughters expressed concern about their mothers emotional state,
suggested to daughters to take home. Daughter expressed she was reluctant to bring their mother in to see him today and agreed to take her home at this time. Dr. Yousif notified of ABG results, 1 amp bicarb given, vent changes made by resp.
Dr. Reed also notified, no further orders.
--- NOTE | 2025-03-21 14:51 | W.PN.ANESINT ---
Anesthesia Intubation Note
- Intubation Note
Intubation Note:
Diagnosis: Respiratory Distress
Blade: Mac 4
Tube Size: 8.0
Depth: 23 cm @lip
Side Taped: right
Drugs Used: propofol-100mg, succs 80mg
Grade View: 1
EtCO2 Present: yes
Atraumatic: yes
Attempts: 1
Insertion Start and Stop Time: 12:06 -12:10
SaO2 Pre: 90
SaO2 Post: 97
Glidescope Used: yes
Other Airway Adjustments: none
Pre-Oxygenated: yes
Portable Chest X-Ray:
RSI: no
Suctioned: yes
Bilateral Breath Sounds Confirmed: yes
Vent Settings:
Settings per _x_Attending Physician
[2025-03-21] MEDS: PITRESSIN 100 IV ×2 (15:27→19:52)
--- NOTE | 2025-03-21 15:35 | PTCARENOTE ---
SBP 60-70's, Lauro gtts maxxed. Dr. Yousif notified. Vasopressin gtts ordered and infusing at this time. Pt stacking breaths on vent/high PIP- PRN Fentanyl given.
[2025-03-21 16:09] LABS: B.E. 2.5 mmol/L; HCO3 29.2 mmol/L (21-28); O2 Saturation % 98.4 % (94-98); PCO2 58 mmHg (35-48); PO2 148 mmHg (83-108)
--- NOTE | 2025-03-21 17:08 | PTCARENOTE ---
1645-RADHA PICC inserted by IV team, awaiting PCXR confirmation. Left nare DHT placed-awaiting XR confirmation.
--- NOTE | 2025-03-21 20:00 | PTCARENOTE ---
Assumed care at 1900. On prop, kartik, vaso, precedex gtts. Left upper extremity picc line verified by xray- all IV tubings replaced. On the vent AC 30/450/100/5. ET Tube #8, 26 @ the lip. CHG bath complete. See worklist for nursing shift assessment
details.
[2025-03-21] MEDS: ELIQUIS 5 MG PO (20:16)
[2025-03-21] MEDS: CELLCEPT 1000 MG TUBE (20:16)
[2025-03-21] MEDS: SENOKOT-S 1 TABLET PO (20:16)
[2025-03-21 20:40] LABS: B.E. -1.3 mmol/L; HCO3 24.8 mmol/L (21-28); O2 Saturation % 98.9 % (94-98); PCO2 47 mmHg (35-48); PO2 233 mmHg (83-108)
[2025-03-22] VITALS (115 sets, daily range): BP systolic 54–164; BP diastolic 39–105; BMI 23.0
--- NOTE | 2025-03-22 00:20 | PTCARENOTE ---
No change from previous assessment. fi02 on vent changed from 100 to 80 %. PRN fentanyl given for breath stacking. Vaso weaned to off.
[2025-03-22] MEDS: SUBLIMAZE 50 MCG IV ×8 (02:09→21:37)
[2025-03-22] MEDS: NEO-SYNEPHRINE 250 IV ×2 (02:22→11:17)
[2025-03-22] MEDS: SUBLIMAZE 100 IV ×2 (04:09→18:06)
[2025-03-22] MEDS: SOLU-MEDROL PF 60 MG IV ×2 (04:14→10:37)
--- NOTE | 2025-03-22 04:15 | PTCARENOTE ---
No change from previous assessment. Precedex weaned off. Fentanyl gtt initiated for vent dysynchrony. fi02 weaned down on the vent to 60%. Afib on the monitor. Plan for dialysis today.
[2025-03-22 04:16] LABS: Blood Urea Nitrogen 79 mg/dl (9-20); Calcium 7.7 mg/dl (8.4-10.2); Carbon Dioxide 28 mmol/L (22-30); Chloride 102 mmol/L (98-107); Estimated Creatinine Clearance 17 ml/min; Glucose 132 mg/dl (70-99); Magnesium 2.5 mg/dl (1.6-2.3); Potassium 4.5 mmol/L (3.5-5.1); Sodium 139 mmol/L (135-145); eGFR 15.43
[2025-03-22 04:37] LABS: Hematocrit 20.3 % (39.0-52.0); Hemoglobin 6.8 g/dL (13.0-18.0); Mean Corp Hgb Conc. 33.5 g/dL (33.0-37.0); Mean Corpuscular Volume 90.6 fL (80.0-94.0); Nucleated Red Blood Cells % 0 % (-); Platelet Count 63 10^3/uL (130-400); Red Cell Dist. Width 14.6 % (11.5-14.5)
[2025-03-22] MEDS: DIPRIVAN 100 IV ×3 (06:07→20:32)
[2025-03-22 06:09] LABS: B.E. -1.9 mmol/L; HCO3 23.1 mmol/L (21-28); O2 Saturation % 99.2 % (94-98); PCO2 39 mmHg (35-48); PO2 129 mmHg (83-108)
--- NOTE | 2025-03-22 08:21 | W.PN.INTV ---
Today's Communication / Plan
Recommendations
Antibiotics
HD per nephrology; may need CRRT depending on his pressor requirements and HDN going forward
Mechanical ventilation
Change Solu-Medrol to hydrocortisone
Change Lauro-Synephrine to double concentrated Levophed; continue vaso
Bowel regimen
Eliquis
Start stress ulcer prophylaxis
Patient remains critically ill with guarded prognosis
Continue ICU level of care
Assessment
-
79-year-old male with a 1 pack year smoking history, hypertension, nephrolithiasis, pulmonary nodule, atrial fibrillation, and renal transplantation on mycophenolate and prednisone with recent ultrasound showing transplant hydronephrosis presented
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
Urosepsis with shock unresponsive to fluids requiring pressors
Bacteremia-Klebsiella
ELIZABETH-BUN/creatinine-105/5.8
Hydronephrosis in transplanted kidney
Acute hypoxic respiratory failure � intubated 03/21/2025
Chronic severe inflammatory interstitial pneumonitis
Renal transplantation since 2018
Chronic immunosuppression
Anemia
Thrombocytopenia
Atrial fibrillation with rapid ventricular response
Leukocytosis
Hypocalcemia
Conditions present prior to admission:
End-stage renal disease status post renal transplantation-[facility] 2018-follows at [facility]-Dr. Hines and locally Dr. Muhammad
Permanent atrial fibrillation/Eliquis.
Hypertension.
BPH.
Postherpetic neuralgia.
Chronic back pain.
Pulmonary nodule right base with negative PET followed by Dr. Olivarez-next CT 02/2025.
Fatty liver.
Inguinal hernia
Osteoporosis.
Hernia repair.
Cataract 2020. Transplant kidney December 2018.
Plan
Critically ill on mechanical ventilation and on pressors
- Continue with mechanical ventilation with daily SAT/SBT if clinically appropriate
- Maintain plateau pressure <30 and titrate FiO2 + PEEP to keep SpO2 >90-94%
- Continue aspiration precautions; keep HOB >30-45�
- prn nebulized bronchodilators - not currently bronchospastic
- Oropharyngeal + deep ETT suctioning with subglottic as needed
- Daily CXR + blood gas
- Daily vent adjustments as needed based on blood gas and SaO2
- Low level of sedation with goal RASS as 0 to -[address] Olivarez for pulmonary nodule and possible interstitial lung disease-ILD serology negative-radiographs appear to have severe interstitial pneumonitis
Patient currently on mycophenolate
Interstitial lung disease serology unrevealing
High-dose steroids were initiated as oxygenation had not improved and not felt to be entirely fluid overload related-trialing hemodialysis for fluid removal-had been on prednisone 2.5 mg twice daily
Given that oxygenation has not improved despite being on dialysis and in the setting of his sepsis with Klebsiella pneumoniae bacteremia, now on pressors, I will transition from Solu-Medrol to hydrocortisone and wean as he clinically improves
Follow radiographically
Cultures reviewed
Blood cultures 03/18/2025-initial positive Klebsiella and subsequent blood cultures negative
MRSA screen negative
Urine culture-Klebsiella and Enterococcus
Influenza negative
Empiric antibiotics-on Unasyn
Infectious disease consultation noted-correspondence reviewed
Trend WBC and monitor temperature curve
Nephrology on board
Hemodialysis as tolerated
Currently on Lauro-Synephrine, however in the setting of shock state presumably due to complicated UTI, I will change to double concentrated Levophed
PICC line already in palce
Titrate pressors to maintain MAP >65
Patient is also on vasopressin
Replete calcium levels
Defer repletion of electrolytes to nephrology with HD
Lactate normalized as of 03/19/2025 and no longer need to continue trending at this time
Patient was transfused 1 unit PRBC this morning; he also was transfused 1 unit PRBC on 03/19 as well as 1 unit on 03/20
He is on Eliquis as an outpatient
Obtain posttransfusion CBC to assess for appropriate rise of Hb
Maintain Hb >7-8 g/dL, and keep platelets >50k (in setting of HD and Eliquis use)
DVT prophylaxis-on Eliquis
*Stress ulcer prophylaxis with PPI
Early nutrition if possible-hold off on tube feeds for now given that patient is on significant vasopressors and there carries a risk of gut ischemia at this current juncture
Prognosis unfortunately poor with multiorgan dysfunction-goals of care discussion should be ongoing
The patient last saw Dr. Olivarez 03/08/2025 for ILD, restrictive lung disease and pulmonary nodule-has appointment for PFT 04/28/2025 at [address] appointment [address] Olivarez 04/29/2025 at 11:15 AM
Critical care statement: A total of 41 minutes of critical care time was provided for this patient today. This includes management of unstable vital signs, evaluation of the patient at bedside, reviewing the patient's pertinent medical records
including radiographs, microbiology, laboratory evaluations, and discussion with primary team, consultants, pharmacy, nutrition, physical therapy, case management, charge nurse, critical care nursing, and respiratory therapy.
Office note Dr. Olivarez 03/08/2025 in regards to pulmonary nodule:
CT imaging August 2024 revealed approximately 1.3 cm nodular opacity in the right base, not present on previous exam.
Underwent a repeat CT in November 2024 Showed resolution of previously seen right basilar nodule but a new 1.4 cm nodule in the right lower lobe.
Underwent a PET scan 12/17/2024 which showed evolution of right lower lobe nodule, now presenting as large ground glass nodule measuring up to 3.9 cm. Highly suggestive of benign infectious/inflammatory process.
Repeat CT 02/2025: now demonstrate bilateral peribronchiolar ground glass infiltrate bilaterally.Unclear etiology, differential Dx includes inflammatory/infectious process vs pulmonary edema.there is evidence of small bilateral pleural effusions,
with history of aortic stenosis pulmonary edema except possibility.With ongoind immunosupresion will need to keep in my oportunistic infection.
Will obtain ILD serology, proBNP and inflmmatory markers.
Bronchoscopy with BAL may be required-if there is no evidence of volume overload.-Of note He was treated with an antibiotic and steroids middle of October 2024. He denies any active Symptoms suggesting infection.If He does produce any phlegm, we will
submit sputum culture
Diagnostic data:
Chest x-ray 03/18/2025-severe chronic inflammatory interstitial pneumonitis
CT abdomen and pelvis 03/18/2025-severe acute edema and inflammation around right lower quadrant renal transplantation, severe hydronephrosis, severe bilateral atrophic [place] kidneys, small bilateral pleural effusions, increased coarse interstitial
markings throughout both lower lobes, right middle lobe with severe chronic inflammatory interstitial pneumonitis
ILD serology 03/10/2025-negative rheumatoid factor, ROXANNE, SSA antibodies, scleroderma antibody, proteinase [address] chest 02/23/2025 ReviewedUriel Leong 03/08/2025 06:25:26 AM EDT >1. Resolution of previously seen right lower lobe 1.4 cm nodule.2. Mild to moderate changes of pulmonary fibrosis as seen previously.3. Superimposed upon the changes of
fibrosis, there is new large amount of bilateralperibronchovascular interstitial and groundglass opacity with small amount of bilateral upper lungairspace consolidation as detailed above. There are very small bilateral pleural effusions. Whileedema
is a differential consideration, findings are more suggestive of a superimposed infectious orinflammatory process. There is associated mild mediastinal adenopathy.-
PET CT 12/17/2024 reviewed: Uriel Leong 03/08/2025 06:25:44 AM EDT >The previously seen solid right lower lobe nodule has evolved/changed in morphology, nowpresenting as a large groundglass nodule measuring up to 3.9 cm which demonstrates
max SUV 4.7(delayed 5.4). Otherwise, no suspicious FDG avid lesions.ABDOMEN and PELVIS:No suspicious FDG-avid lesions.SKELETON:No suspicious FDG-avid lesions.This suggests inflammatory process.-
CT chest 2023: Reviewed Uriel Leong 07/05/2023 08:49:26 AM >1. No significant acute abnormality identified in the chest within the limits of unenhanced CT, asdescribed above. Probable residual fibrotic changes in the lungs, less
likely active pneumonitis.-
CT chest 02/27/2023: Reviewed Uriel Leong 03/06/2023 08:42:39 AM >There has been significant further improvement in the patient's bilateral parenchymal airspacedisease when compared with the previous examinations.Currently, there is mild
left and moderate diffuse coarsening of the interstitial markingsthroughout both lungs which at this point may be residual scarring/fibrosis rather than acuteinflammatory disease.There is mild cardiomegalyThere is atherosclerosis-
CT chest 11/23/2022: showed evidence of postinflammatory fibrosis. Groundglass opacities have resolved..
Pulmonary function testing ( 07/13/2024� ):FEV1: 3.4 L-107%FVC:3.96 L-89%FEV1/FVC ratio:86%T.52 L-73%RV:44%ERV:RV/TLC ratio:23%DLCO: 13.69-50%DLCO/VA: 70%
Echo 05/19/24: Normal biventricular size and function. EF 65%. Severely dilated LA. Paradoxical low flow low gradient aortic stenosis. Mild AR.
Subjective Dataa
Subjective Data
Date of Service:
Date of Service: March 22, 2025
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
Subjective:
Patient was seen and evaluated. Intubated yesterday afternoon. Now sedated on fentanyl at 50 mcg/h and propofol at 10 mcg/kg/minute. Eyes are open although not following commands. Heart rate 84, BP 110/73 and saturating 100%. Currently on HD with
need for vasopressors currently on vasopressin and Lauro-Synephrine at 120 mcg/min.
Review of Systems
General: Unobtainable - Pat Unresp (+ Intubated)
Objective Data
Data Reviewed
Vital Signs / I&O / Oxygen:
Vital Signs
Temp Pulse Resp BP Pulse Ox
98.2 F 78 32 105/72 100
03/22/25 07:07 03/22/25 08:15 03/22/25 08:15 03/22/25 08:15 03/22/25 08:15
Intake and Output
03/21/25 03/22/25 03/23/25
06:59 06:59 06:59
Intake Total 148.3 / 156.4 1333.2 / 1366.9 67.4 / 67.4
Output Total 940 / 960 235 / 235
Balance -791.7 / -803.6 1098.2 / 1131.9 67.4 / 67.4
SaO2 [A/C] 100
SaO2 [NIV (Non Invasive 97
Ventilation)]
SaO2 100
Nasal Cannula flow liters per 98
minute
Physical Exam
General: Respiratory Distress (negative), Comfortable, Chills (negative) and Sweats (negative)
HEENT: Normocephalic, Anicteric and Other (ETT in place)
Cardiovascular: Irregular Rhythm (Irregularly irregular), Peripheral Edema (negative) and Other (Tachycardic)
Respiratory: Wheeze (n), Crackles (Basilar), Rhonchi (n), Non-Labored Respirations, Accessory Resp Muscle Use (Mild to moderate (although ventilator set rate is at 30)), Stridor (n) and ET Tube (Mechanical breath sounds heard bilaterally)
GI: Soft, Non Distended, Non Tender and Normal Bowel Sounds
Neurology: Other (Sedated; pupils +1 to +2 mm and sluggish; intact corneal reflexes; eyes are open - not following commands)
Skin: Warm, Dry, Cyanosis (n), Jaundice (n) and Rash (n)
Labs/Micro/Reports
Lab Data
03/22/25 03:44
Laboratory Results
03/21/25 03/21/25 03/21/25
13:12 15:58 20:33
pH 7.18 L* 7.31 L 7.33 L
pCO2 75 H* 58 H 47
pO2 89 148 H 233 H
HCO3 28.0 29.2 H 24.8
O2 Delivery Level Not Reportable
03/22/25
05:59
pH 7.38
pCO2 39
pO2 129 H
HCO3 23.1
O2 Delivery Level
Microbiology
03/20/25 05:07 Blood/Venous Blood Culture - Preliminary
No Growth in 48 hours- Final report to follow
03/20/25 05:34 Blood/Venous Blood Culture - Preliminary
No Growth in 48 hours- Final report to follow
03/18/25 18:13 Urine Urine Culture - Preliminary
Klebsiella pneumoniae
Enterococcus species
03/18/25 17:02 Blood/Venous Blood Culture - Final
Klebsiella pneumoniae
03/18/25 17:02 Blood/Venous Gram Stain - Final
03/18/25 17:01 Blood/Venous Blood Culture - Final
Klebsiella pneumoniae
03/18/25 17:01 Blood/Venous Gram Stain - Final
03/18/25 23:17 Nose MRSA Screen - Final
No Methicillin Resistant Staphylococcus aureus isolated.
[2025-03-22] MEDS: LOPRESSOR PO (08:27)
[2025-03-22] MEDS: ELIQUIS 5 MG PO (08:28)
[2025-03-22] MEDS: CARDURA PO (08:28)
[2025-03-22] MEDS: MIRALAX 17 GRAMS TUBE (08:28)
[2025-03-22] MEDS: CELLCEPT 1000 MG TUBE ×2 (08:28→20:32)
[2025-03-22] MEDS: SENOKOT-S 1 TABLET PO (08:28)
[2025-03-22] MEDS: FLEXBUMIN 25% FOR HEMODIALYSIS 12.5 GRAMS IV ×2 (09:10→11:14)
[2025-03-22] MEDS: MANNITOL 25% 12.5 GRAMS IV ×2 (09:21→11:14)
--- NOTE | 2025-03-22 09:52 | PTCARENOTE ---
Rec'd care of patient at 0700. Patient intubated and sedated on Fentanyl/Propofol drips. RASS -2 to 0. Does not follow commands. Pupils equal and reactive, +2mm. Afib/aflutter, 70-80's. Lauro infusing through LDL PICC; titrating for SBP>90. #8.0 ett,
26cm @ the lip. Vent settings- A/C 30/450/5/50%. Pulse ox 98-100%. Lung sounds coarse throughout. +BS. NPO. Meds through DHT. Disla draining small amount of output. HD in progress. 1 unit PRBCs transfused. Repeat H&H at 1100. Pressor requirements
increasing; SBP<90. Vasopressin restarted.
[2025-03-22] MEDS: RETACRIT 10000 UNITS IV (10:00)
--- NOTE | 2025-03-22 11:04 | W.PN.NEPH.PH ---
Today's Communication / Plan
-
HD today
Assessment/Plan
-
This is a 79-year-old gentleman who follows in our office with Dr. Muhammad after donor renal transplant 2019 from [facility]. His transplant course has been complicated by development of nephrotic range proteinuria as well as recent
cellular rejection December of this year. The episodes treated with Solu-Medrol. His creatinine has risen quickly over time in the last several months. He has gone from a creatinine around 2 now up to 4.4. He was noted to have hydronephrosis of
the transplanted kidney recently on ultrasound as well as CT scan. Esteves catheter was placed by urology a few days ago. His appetite has been poor as of late. Recently he also developed fever and malaise and this has brought him to the emergency
room. He was noted to be febrile in the ER. Blood pressure was stable though lower than his home readings of 132. He was 100 systolic in the ER. Creatinine was 4.7 with elevated lactate level and elevated white count. CT of the abdomen and
pelvis were performed with suspicion for pyelonephritis of the transplant. We are asked to assist in management of his renal issues.
Assessment
Sepsis syndrome, possible pyelonephritis
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
donor renal transplant with FSGS, recent T-cell rejection
Obstructive uropathy, Esteves catheter in place
ELIZABETH..
Anemia
Hyponatremia
lactic acidosis
DOMINATRIX-He had been making outpatient arrangements for eventual ESRD and transplant evaluation at [place]/previously on peritoneal dialysis prior to transfer
Plan
ELIZABETH-progressive in setting of sepsis
now on HD day 3. UF as tolerates
oligoanuric with esteves-ok for VT now that he is on HD
cont pressors to keep MAP >65
Continue immunosuppressive regimen PT mycophenolate and iV solumedrol
He is not yet due for belatacept.
Anemia s/p PRBC today, has fe def withheld IV fe due to bacteremia but now that bld cx neg likely start with next HD
remains intubated, Fio2 50%-wean as able , has underlying interstitial lung disease
abx per ID
dose meds renally
poor prognosis
d/w nursing
CC time spent 31min
-
-
Date of Service: March 22, 2025
CC / HPI / ROS
-
Chief Complaint:
Sepsis
History of Present Illness:
Acute kidney injury multifactorial obstructive uropathy, sepsis
HD today
remains on pressors for hypotension
was intubated last evening , on 50% fio2
hb low 6.8, 1 PRBC, plt low at 63
Review of Systems:
oligoanuric with esteves
no fever
wt decreasing
Labs
-
Labs:
WBC 9.5 10^3/uL (4.8-10.8) 03/22/25 03:44
RBC 2.24 10^6/uL (4.70-6.10) L 03/22/25 03:44
Plt Count 63 10^3/uL (130-400) L D 03/22/25 03:44
Sodium 139 mmol/L (135-145) 03/22/25 03:44
Potassium 4.5 mmol/L (3.5-5.1) 03/22/25 03:44
Chloride 102 mmol/L (98-107) 03/22/25 03:44
Carbon Dioxide 28 mmol/L (22-30) 03/22/25 03:44
BUN 79 mg/dl (9-20) H 03/22/25 03:44
Creatinine 3.8 mg/dL (0.7-1.3) H 03/22/25 03:44
eGFR 15.43 03/22/25 03:44
Glucose 132 mg/dl (70-99) H 03/22/25 03:44
Calcium 7.7 mg/dl (8.4-10.2) L 03/22/25 03:44
Phosphorus 5.8 mg/dl (2.5-4.5) H 03/20/25 05:07
Ghu-D-Zahdxxkptca Pept > 71721 pg/ml 03/19/25 23:51
Albumin 3.1 g/dl (3.5-5.0) L 03/18/25 17:01
Physical Exam
-
Vital Signs:
Vital Signs
Temp Pulse Resp BP Pulse Ox
97.8 F 98 27 124/75 100
03/22/25 11:05 03/22/25 11:00 03/22/25 11:00 03/22/25 11:00 03/22/25 11:00
Cardiovascular:: Regular rate and rhythm
Respiratory:: Bilateral: Coarse
Lung Excursion:: Abnormal
Abdomen:: Nontender and Soft
Extremity Edema:: None: Bilateral:
Esteves Catheter: Yes
[2025-03-22] MEDS: UNASYN IV (11:17)
--- NOTE | 2025-03-22 11:29 | W.PN.HOSP.TC ---
Today's Communication/Plan
-
HD today
PRBC transfusion
Wean o2
wean pressors as tolerated
IV steroids
Iv antibiotics
Assessment / Plan
Assessment / Plan
General: No Apparent Distress
HEENT: NormoCephalic, Moist mucous membranes and Atraumatic
Respiratory: Rhonchi's, ETT tube noted, R chest wall HD catheter noted
Cardiac: S1/S2, Regular Rhythm and Murmur (3 out of 6 systolic murmur); No Rub, Peripheral Edema or JVD
GI: Soft, Non Tender, Non Distended and Normal Bowel Sounds;
Rectal: Deferred by Provider
-esteves
Musculoskeletal: No Clubbing, No Cyanosis and No Edema
Skin: No Rash
Neuro: Sedated
79-year-old with history of end-stage renal disease status post kidney transplant 2019 on antirejection medications, hypertension, hyperlipidemia, atrial fibrillation on , urinary retention status post catheter placement on Saturday presenting
to the emergency department with fever and chills as well as weakness. CT scan consistent with transplant pyelonephritis. He still has persistent hydro which likely reflects chronic hydro compared to his prior ultrasound. Known anemia. Picture
consistent with pyelonephritis with bandemia and lactic acidemia consistent with sepsis.
PLAN:
Acute hypoxic respiratory failure likely secondary to pulmonary edema versus pneumonia versus interstitial lung disease
Status post intubation and on mechanical ventilation
-Started on Solu-Medrol 60 mg every 6 hours
-continue with sedation.
-Already on antibiotics.
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
Sepsis shock associated with acute kidney injury, lactic acidosis secondary to Klebsiella bacteremia likely secondary to urinary tract infection
- Status post 30 mL/kg crystalloid in ED
- Blood cultures with Klebsiella identification noted. Urine culture also positive for Klebsiella. Repeat surveillance cultures in lab
- Status post IV cefepime. Now on IV Unasyn.
- Can discontinue azithromycin
- some component of shock could be related to sedation
- ID following
Toxic metabolic encephalopathy likely secondary to shock versus ICU delirium versus hypoxemia versus uremia
- Currently on Precedex infusion.
Hydronephrosis - Resolving, cannot rule out post obstructive polyuria. Catheter placed by Dr. Jim as outpatient.
- maintain urinary catheter for now
- patient denies any alpha blockade but considering TURP
- monitor i/os
- f/u u/s after tx of elizabeth
- continue cardura with hold parameters
ELIZABETH - Persistent ELIZABETH despite Esteves placement. Recent Treatment for rejection in December.
Metabolic acidosis
- Status post IV fluids with bicarbonate.
- Status post diuretics
- avoid nephrotoxins and renal dose medications
- Patient started on dialysis on 03/20/2025. 3rd session today.
- Volume overload should help with hypoxemia.
Transplant
- continue cellcept. On IV steroids
Anemia - Macrocytic anemia, recent normal sats but given IV iron infusion without improvement. Denies melena. Colonoscopy November ->single non-bleeding colonic angioectasia and internal hemorrhoids. On eliquis.
- Ferritin level elevated. Hemoglobin 6.8 s/p 3u of PRBC. Repeat H/H pending
- type and screen and trend H&H for now
- Transfuse hgb <7
Thrombocytopenia likely secondary to septic shock
-Continue to trend platelets.
-If with significant drop may need to consider holding eliquis
AFIB Permanent
- continue metoprolol (hold parameters) and eliquis
DVT PPX - on eliquis
Code status - Full Code
Remains critically ill.
Total Critical Care Time 45 minutes. I was immediately available to the patient and staff. I personally examined, reviewed labs, diagnostic images/reports, interpretations, treatment plans, discussed patient care with other providers and family
or caregivers (if patient is unable to make decisions), entered orders as appropriate and documented the medical record.
Anticipated Discharge: > 48 hours
Subjective/Interval History
-
Date of Service: March 22, 2025
24 hours patient has been intubated
Patient on multiple pressors
Currently on sedation
Currently on hemodialysis
Hemoglobin was low and received blood transfusion
Objective Data
-
Labs:
Laboratory Results
03/22/25 03/22/25 03/22/25
03:44 05:59 11:26
WBC 9.5
Hgb 6.8 L* Pending
Hct 20.3 L* Pending
Plt Count 63 L D
HCO3 23.1
Sodium 139
Potassium 4.5
Chloride 102
Carbon Dioxide 28
BUN 79 H
Creatinine 3.8 H
Glucose 132 H
Calcium 7.7 L
Vital Signs:
Vital Signs
Temp Pulse Resp BP Pulse Ox
97.8 F 94 28 116/83 100
03/22/25 11:05 03/22/25 11:15 03/22/25 11:15 03/22/25 11:15 03/22/25 11:15
I&O
03/21/25 03/22/25 03/23/25
06:59 06:59 06:59
Intake Total 148.3 / 156.4 1333.2 / 1366.9 745.5 / 745.5
Output Total 940 / 960 235 / 235 50 / 50
Balance -791.7 / -803.6 1098.2 / 1131.9 695.5 / 695.5
--- NOTE | 2025-03-22 11:39 | W.PN.NEPH.HD ---
Assessment
-
pt seen during HD
on pressors Bp stable, titrate as needed
UF as toelrates
high dose ZORAIDA and PRBC during HD
temp CVC functions fine
dose meds renally
Progress Note - Hemodialysis
-
Date of Service: March 22, 2025
Duration: 15 minutes and 3 hours
Potassium Bath: 3
Calcium Bath: 2.5
Opti-Dialyzer: 160
Ultrafiltration: Other (2-2.5kg)
Blood Flow: 400
Dialysate Flow: 600
Heparin: no
EPO: [id number]
[2025-03-22 11:50] LABS: Hematocrit 27.6 % (39.0-52.0); Hemoglobin 9.2 g/dL (13.0-18.0)
--- NOTE | 2025-03-22 11:53 | W.PN.ID1 ---
Date of Service
Date of Service: March 22, 2025
Today's Communication
Check sputum cx.
Continue Unasyn.
Assessment / Plan
# donor renal txp on immunosuppressive drugs
# Klebsiella bacteremia - source
# Transplant kidney pyelonephritis with Klebsiella and E. faecalis
# Obstructive uropathy of transplant kidney, esteves placed 03/15
# Acute hypoxemic respiratory failure - intubated 03/21.
Suspect pulm edema superimposed on chronic inflammatory interstitial pneumonitis.
# ELIZABETH on CKD - HD started 03/20
# Hypotension on 2 pressors
# Fever - resolved
# Leukocytosis resolved
-Repeat bcx's negative
- Check sputum cx
-Ucx: Klebsiella and Enterococcus
- Continue Unasyn 3g IV q24H (d3)
- On steroid,per [employer]
Pt critically ill in ICU.
Conditions present on admission
donor renal transplant on mycophenolate, belatacept, prednisone 2.5 twice daily 2018
Atrial fibrillation
Post-COVID chronic inflammatory interstitial pneumonitis
Hypertension
BPH
Postherpetic neuralgia
Chronic back pain
Chief Complaint
-: UTI
Subjective / Review of Systems
Intubated. On HD.
Vital Signs / Physical Exam
Vital Signs
Vital Signs
Temp Pulse Resp BP Pulse Ox
97.8 F 94 28 116/83 100
03/22/25 11:05 03/22/25 11:15 03/22/25 11:15 03/22/25 11:15 03/22/25 11:36
Physical Exam
Constitutional: Acutely Ill
Cardiovascular: Regular Rate and S1/S2
Pulmonary: Coarse
Gastrointestinal: Soft, Non Tender, Non Distended and Normal Bowel Sounds
Genito-Urinary: Esteves and Clear Urine
Extremities: Negative Edema
Objective Data
Lab Data
Lab Results
03/22/25 11:26
03/22/25 03:44
PT 25.0 Sec (11.4-14.6) H 03/19/25 23:40
INR 2.25 03/19/25 23:40
APTT 40.4 Sec (23.4-35.0) H 03/19/25 23:40
Estimated Creat Clear 17 ml/min 03/22/25 03:44
Lactic Acid 1.2 mmol/L (0.7-2.0) 03/19/25 23:40
Total Bilirubin 0.5 mg/dl (0.2-1.3) 03/18/25 17:01
AST 31 U/L (17-59) 03/18/25 17:01
ALT 42 U/L (0-50) 03/18/25 17:01
Alkaline Phosphatase 86 U/L (38-126) 03/18/25 17:01
C-Reactive Protein > 270.00 mg/L (0.0-10.00) H 03/19/25 23:40
Most recent labs reviewed.
Micro Results:
03/20/25 05:07 Blood Culture - Preliminary
Blood/Venous No Growth in 48 hours- Final report to follow
03/20/25 05:34 Blood Culture - Preliminary
Blood/Venous No Growth in 48 hours- Final report to follow
03/18/25 18:13 Urine Culture - Preliminary
Urine Klebsiella pneumoniae
Enterococcus species
03/18/25 17:02 Blood Culture - Final
Blood/Venous Klebsiella pneumoniae
Gram Stain - Final
03/18/25 17:01 Blood Culture - Final
Blood/Venous Klebsiella pneumoniae
Gram Stain - Final
03/18/25 23:17 MRSA Screen - Final
Nose No Methicillin Resistant Staphylococcus aureus isolated.
03/18/25 17:03 Influenza Types A & B (NOLVIA) - Final
Nasal Swab Negative for Influenza A & B, NAAT
Negative results must be combined with clinical observations
and patient history.
Nucleic Acid Amplification test (NAAT)performed on the
[employer] platform.
03/20/25 CXR: Grossly stable severe diffuse bilateral interstitial and airspace disease which may reflect combination of pulmonary edema and pneumonia. Cannot rule out component of underlying chronic interstitial lung disease.
03/19/25 CXR: Progressive parenchymal disease process, as described. Differential includes progressive congestive heart failure with pulmonary edema versus diffuse bilateral pneumonia, right greater than left.
03/18/25 CT a/p: Severe acute edema and inflammation around the right lower quadrant renal transplant which is new from 12/17/2024. Severe hydronephrosis of the right intrarenal collecting system and right renal pelvis which has increased. ACUTE
PYELONEPHRITIS of the RIGHT LOWER QUADRANT RENAL TRANSPLANT is considered most likely. Acute infarction of the renal transplant is a less likely diagnostic possibility. Severe diffuse urinary bladder wall thickening with surrounding perivesical
inflammation which appears new from 12/17/2024 suggesting SEVERE ACUTE CYSTITIS. Esteves catheter in the urinary bladder. Mildly enlarged prostate gland.
--- NOTE | 2025-03-22 12:28 | PTCARENOTE ---
HD completed. Plan of care discussed during rounds. Wean off Lauro and start Norepinephrine. Titrate for MAP >65. Repeat H&H 9.2/27.6. Spontaneous awakening trial.
--- NOTE | 2025-03-22 13:17 | CM ---
F/U: Patient was intubated on 03/19 so Case Management to follow up on needs once patient is extubated. PLAN: TBD.
--- NOTE | 2025-03-22 13:49 | PTCARENOTE ---
SAT attempted at 1245. Propofol gtt turned off. Patient alert. Anxious. Calming methods and reorientation used with minimal improvement. Patient nodding head appropriately. Following simple commands. Patient unable to tolerate SAT. RASS +2. RR 40.
HR up to the 120-150's. Hypertensive. Vaso off at 1245; Lauro titrated down. Schedule Checker notified. Propofol gtt turned back on at 1320. RR dropped to 22 on ventilator. RR down to high 20's. Lauro titrated off at 1335.
--- NOTE | 2025-03-22 14:06 | PN.CDI ---
CDI
- -
CDI:
Physician Documentation Request
Admit Date: 03/18/25 19:48
Dear Doctor Marisela,
Hospitalist progress note states 'Acute hypoxic respiratory failure likely secondary to pulmonary edema versus pneumonia versus interstitial lung disease
Please clarify which of the following accurately represents the acuity of the pulmonary edema
____ Acute
Acute on Chronic
Chronic
____ Other
Use of terms such as suspected, likely, concern for, or probable (associated with a specific diagnosis that is being evaluated, monitored, or treated as if it exists) are acceptable and can be coded in the inpatient setting, when documented at the
time of discharge.
Thank you,
Brandy Garcia RN, BSN
CDI Specialist
tiger text
Please use your independent medical judgment in providing your response.
[2025-03-22] MEDS: LEVOPHED 258 MG IV (14:35)
--- NOTE | 2025-03-22 14:40 | PTCARENOTE ---
BP down to 60/40's. Norepinephrine drip initiated. Titrating for MAP>65.
--- NOTE | 2025-03-22 16:26 | PTCARENOTE ---
Systems reviewed. Patient anxious, restless in bed. Propofol titrated per protocol. Weaning Norepinephrine as tolerated. No other changes from previous assessment.
[2025-03-22] MEDS: SOLU-CORTEF 50 MG IV ×2 (17:20→23:41)
--- NOTE | 2025-03-22 20:00 | PTCARENOTE ---
Assumed care at 1900. Patient on the vent AC 22/450/50/5 ET tube #8, 26 at the lip. Afib on the monitor with pvcs. On levo, fent, prop gtts. Fent bolus administered for vent dysynchrony and gtt rate increased along with propofol for rass of 1. See
worklist for nursing shift assessment details.
[2025-03-22] MEDS: SENOKOT-S 1 TABLET TUBE (20:32)
[2025-03-22] MEDS: ELIQUIS 5 MG TUBE (20:32)
[2025-03-22] MEDS: NEO-SYNEPHRINE 1% 260 MG IV (21:46)
[2025-03-22] MEDS: PITRESSIN 100 IV (23:42)
[2025-03-23] VITALS (84 sets, daily range): BP systolic 83–136; BP diastolic 47–83; BMI 22.1
--- NOTE | 2025-03-23 | PTCARENOTE ---
No changes from previous assessment. Vent settings changed to AC 20/550/50/5. Levo switched to kartik due to ectopy. Vasopressin restarted. Bis monitor placed- weaning prop and fentanyl. Patient with small amount of coffee ground emesis. ICU provider
made aware.
[2025-03-23] MEDS: SUBLIMAZE 50 MCG IV ×3 (03:00→19:47)
[2025-03-23] MEDS: SUBLIMAZE 100 IV (03:44)
[2025-03-23 03:56] LABS: Hematocrit 23.9 % (39.0-52.0); Hemoglobin 7.5 g/dL (13.0-18.0); Mean Corp Hgb Conc. 31.4 g/dL (33.0-37.0); Mean Corpuscular Volume 94.1 fL (80.0-94.0); Platelet Count 73 10^3/uL (130-400); Red Cell Dist. Width 15.3 % (11.5-14.5)
[2025-03-23] MEDS: DIPRIVAN 100 IV (04:08)
[2025-03-23 04:33] LABS: ALT (SGPT) 79 U/L (0-50); AST (SGOT) 38 U/L (17-59); Albumin 2.7 g/dl (3.5-5.0); Alkaline Phosphatase 54 U/L (38-126); Blood Urea Nitrogen 76 mg/dl (9-20); Calcium 7.5 mg/dl (8.4-10.2); Carbon Dioxide 27 mmol/L (22-30); Chloride 98 mmol/L (98-107); Estimated Creatinine Clearance 19 ml/min; Glucose 158 mg/dl (70-99); Magnesium 2.5 mg/dl (1.6-2.3); Potassium 4.1 mmol/L (3.5-5.1); Sodium 136 mmol/L (135-145); Total Protein 4.6 g/dl (6.3-8.2); eGFR 17.63
[2025-03-23 04:39] LABS: B.E. 0.2 mmol/L; HCO3 26.0 mmol/L (21-28); O2 Saturation % 96.4 % (94-98); PCO2 46 mmHg (35-48); PO2 82 mmHg (83-108)
[2025-03-23 04:51] LABS: O2 Therapy 50
[2025-03-23 05:19] LABS: Nucleated Red Blood Cells % 0 % (-)
[2025-03-23] MEDS: SOLU-CORTEF 50 MG IV ×3 (05:36→17:28)
--- NOTE | 2025-03-23 05:40 | PTCARENOTE ---
No change from previous assessment. Vent settings changed AC 20/550/40/5. Vaso weaned to off. Remains on kartik, prop, and fent. Bis monitor taken off.
--- NOTE | 2025-03-23 06:44 | PTCARENOTE ---
NO change from previous assessment. A line dressing changed due to leaking. PRN oxycodone and dilaudid given for RLE pain. Neurovascular and skin checks WNL. See worklist for details.
[2025-03-23] MEDS: PROTONIX IV 40 MG IV ×2 (07:37→19:35)
--- NOTE | 2025-03-23 08:10 | W.PN.INTV ---
Today's Communication / Plan
Recommendations
Antibiotics
HD per nephrology; may need CRRT depending on his pressor requirements and HDN going forward
Mechanical ventilation
Hydrocortisone
Lauro-Synephrine + vaso, weaning down while keeping MAP >65
Bowel regimen
Hold Eliquis in setting of coffee-ground emesis and downtrending Hb
Raise PPI to 40mgm BID
Patient remains critically ill with guarded prognosis
Continue ICU level of care
Assessment
-
79-year-old male with a 1 pack year smoking history, hypertension, nephrolithiasis, pulmonary nodule, atrial fibrillation, and renal transplantation on mycophenolate and prednisone with recent ultrasound showing transplant hydronephrosis presented
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
Urosepsis with shock unresponsive to fluids requiring pressors
Bacteremia-Klebsiella
ELIZABETH-BUN/creatinine-105/5.8
Hydronephrosis in transplanted kidney
Acute hypoxic respiratory failure � intubated 03/21/2025
Chronic severe inflammatory interstitial pneumonitis
Renal transplantation since 2018
Chronic immunosuppression
Anemia
Thrombocytopenia
Atrial fibrillation with rapid ventricular response
Leukocytosis
Hypocalcemia
Coffee-ground emesis
Conditions present prior to admission:
End-stage renal disease status post renal transplantation-[facility] 2018-follows at [facility]-Dr. Hines and locally Dr. Muhammad
Permanent atrial fibrillation/Eliquis.
Hypertension.
BPH.
Postherpetic neuralgia.
Chronic back pain.
Pulmonary nodule right base with negative PET followed by Dr. Olivarez-next CT 02/2025.
Fatty liver.
Inguinal hernia
Osteoporosis.
Hernia repair.
Cataract 2020. Transplant kidney December 2018.
Plan
Critically ill on mechanical ventilation and on pressors
- Continue with mechanical ventilation with daily SAT/SBT if clinically appropriate
- Maintain plateau pressure <30 and titrate FiO2 + PEEP to keep SpO2 >90-94%
- Continue aspiration precautions; keep HOB >30-45�
- prn nebulized bronchodilators - not currently bronchospastic
- Oropharyngeal + deep ETT suctioning with subglottic as needed
- Daily CXR + blood gas
- Daily vent adjustments as needed based on blood gas and SaO2
- Low level of sedation with goal RASS as 0 to -2
CXR today (03/23/2025) shows improvement and so has his FiO2 requirements
Follows Dr. Olivarez for pulmonary nodule and possible interstitial lung disease-ILD serology negative-radiographs appear to have severe interstitial pneumonitis
Patient currently on mycophenolate
Interstitial lung disease serology unrevealing
High-dose steroids were initiated as oxygenation had not improved and not felt to be entirely fluid overload related-trialing hemodialysis for fluid removal-had been on prednisone 2.5 mg twice daily
Given that oxygenation has not improved despite being on dialysis and in the setting of his sepsis with Klebsiella pneumoniae bacteremia, now on pressors, I transitioned from Solu-Medrol to hydrocortisone and wean as he clinically improves
Follow radiographically
Cultures reviewed
Blood cultures 03/18/2025-initial positive Klebsiella and subsequent blood cultures negative
MRSA screen negative
Urine culture-Klebsiella and Enterococcus
Influenza negative
Empiric antibiotics-on Unasyn
Infectious disease consultation noted-correspondence reviewed
Trend WBC and monitor temperature curve
Nephrology on board
Hemodialysis as tolerated
Trialed levophed yesterday but overnight on 03/22 - 03/23 he developed ectopy, hence he was changed back to lauro. Continue to wean down Lauro as tolerated while keeping MAP>65
PICC line already in place
Patient is also on vasopressin
Replete calcium levels
Defer repletion of electrolytes to nephrology with HD
Lactate normalized as of 03/19/2025 and no longer need to continue trending at this time
Patient was transfused 1 unit PRBC on AM of 03/22; he also was transfused 1 unit PRBC on 03/19 as well as 1 unit on 03/20
He is on Eliquis as an outpatient --> hold Eliquis for now given that his Hb is downtrending and he has coffee-ground emesis (as of 03/23)
Raise PPI to 40mg IV BID
Continue trending Hb and if coffee-ground emesis persist then we will consult GI
Maintain Hb >7-8 g/dL, and keep platelets >50k
DVT prophylaxis: SCDs
Stress ulcer prophylaxis with PPI
Early nutrition if possible-hold off on tube feeds for now given that patient is on significant vasopressors and there carries a risk of gut ischemia at this current juncture
Prognosis unfortunately poor with multiorgan dysfunction-goals of care discussion reviewed today with the patient daughters and ; they understand that he is critically ill but they would like to continue full medical management for now and are
not interested in withdrawal care.
The patient last saw Dr. Olivarez 03/08/2025 for ILD, restrictive lung disease and pulmonary nodule-has appointment for PFT 04/28/2025 at [address] appointment [address] Olivarez 04/29/2025 at 11:15 AM
Critical care statement: A total of 38 minutes of critical care time was provided for this patient today. This includes management of unstable vital signs, evaluation of the patient at bedside, reviewing the patient's pertinent medical records
including radiographs, microbiology, laboratory evaluations, and discussion with primary team, consultants, pharmacy, nutrition, physical therapy, case management, charge nurse, critical care nursing, and respiratory therapy.
Office note Dr. Olivarez 03/08/2025 in regards to pulmonary nodule:
CT imaging August 2024 revealed approximately 1.3 cm nodular opacity in the right base, not present on previous exam.
Underwent a repeat CT in November 2024 Showed resolution of previously seen right basilar nodule but a new 1.4 cm nodule in the right lower lobe.
Underwent a PET scan 12/17/2024 which showed evolution of right lower lobe nodule, now presenting as large ground glass nodule measuring up to 3.9 cm. Highly suggestive of benign infectious/inflammatory process.
Repeat CT 02/2025: now demonstrate bilateral peribronchiolar ground glass infiltrate bilaterally.Unclear etiology, differential Dx includes inflammatory/infectious process vs pulmonary edema.there is evidence of small bilateral pleural effusions,
with history of aortic stenosis pulmonary edema except possibility.With ongoind immunosupresion will need to keep in my oportunistic infection.
Will obtain ILD serology, proBNP and inflmmatory markers.
Bronchoscopy with BAL may be required-if there is no evidence of volume overload.-Of note He was treated with an antibiotic and steroids middle of October 2024. He denies any active Symptoms suggesting infection.If He does produce any phlegm, we will
submit sputum culture
Diagnostic data:
Chest x-ray 03/18/2025-severe chronic inflammatory interstitial pneumonitis
CT abdomen and pelvis 03/18/2025-severe acute edema and inflammation around right lower quadrant renal transplantation, severe hydronephrosis, severe bilateral atrophic [employer] kidneys, small bilateral pleural effusions, increased coarse interstitial
markings throughout both lower lobes, right middle lobe with severe chronic inflammatory interstitial pneumonitis
ILD serology 03/10/2025-negative rheumatoid factor, ROXANNE, SSA antibodies, scleroderma antibody, proteinase [address] chest 02/23/2025 ReviewedUriel Leong 03/08/2025 06:25:26 AM EDT >1. Resolution of previously seen right lower lobe 1.4 cm nodule.2. Mild to moderate changes of pulmonary fibrosis as seen previously.3. Superimposed upon the changes of
fibrosis, there is new large amount of bilateralperibronchovascular interstitial and groundglass opacity with small amount of bilateral upper lungairspace consolidation as detailed above. There are very small bilateral pleural effusions. Whileedema
is a differential consideration, findings are more suggestive of a superimposed infectious orinflammatory process. There is associated mild mediastinal adenopathy.-
PET CT 12/17/2024 reviewed: Uriel Leong 03/08/2025 06:25:44 AM EDT >The previously seen solid right lower lobe nodule has evolved/changed in morphology, nowpresenting as a large groundglass nodule measuring up to 3.9 cm which demonstrates
max SUV 4.7(delayed 5.4). Otherwise, no suspicious FDG avid lesions.ABDOMEN and PELVIS:No suspicious FDG-avid lesions.SKELETON:No suspicious FDG-avid lesions.This suggests inflammatory process.-
CT chest 2023: Reviewed Uriel Leong 07/05/2023 08:49:26 AM >1. No significant acute abnormality identified in the chest within the limits of unenhanced CT, asdescribed above. Probable residual fibrotic changes in the lungs, less
likely active pneumonitis.-
CT chest 02/27/2023: Reviewed Uriel Leong 03/06/2023 08:42:39 AM >There has been significant further improvement in the patient's bilateral parenchymal airspacedisease when compared with the previous examinations.Currently, there is mild
left and moderate diffuse coarsening of the interstitial markingsthroughout both lungs which at this point may be residual scarring/fibrosis rather than acuteinflammatory disease.There is mild cardiomegalyThere is atherosclerosis-
CT chest 11/23/2022: showed evidence of postinflammatory fibrosis. Groundglass opacities have resolved..
Pulmonary function testing ( 07/13/2024� ):FEV1: 3.4 L-107%FVC:3.96 L-89%FEV1/FVC ratio:86%T.52 L-73%RV:44%ERV:RV/TLC ratio:23%DLCO: 13.69-50%DLCO/VA: 70%
Echo 05/19/24: Normal biventricular size and function. EF 65%. Severely dilated LA. Paradoxical low flow low gradient aortic stenosis. Mild AR.
Subjective Dataa
Subjective Data
Date of Service:
Date of Service: March 23, 2025
Chief Complaint: [facility] Consultant Follow Up and Pulmonary Follow Up
Subjective:
Patient seen and evaluated this morning. Remains intubated. Dialysis planned for tomorrow. Levophed now off after being switched to Lauro-Synephrine at 120 mcg/min. Currently on propofol at 20 mcg/kg/min and fentanyl at 100 mcg/hour. Having
coffee-ground emesis. Appears more awake today but still not following commands.
Review of Systems
General: Other (Unobtainable as patient is minimally responsive/intubated)
Objective Data
Data Reviewed
Vital Signs / I&O / Oxygen:
Vital Signs
Temp Pulse Resp BP Pulse Ox
98.2 F 87 20 100/53 99
03/23/25 08:00 03/23/25 06:45 03/23/25 06:45 03/23/25 06:45 03/23/25 08:17
Intake and Output
03/22/25 03/23/25 03/24/25
06:59 06:59 06:59
Intake Total 1333.2 / 1366.9 1497.7 / 1535.1 84.8 / 84.8
Output Total 235 / 235 225 / 225 200 / 200
Balance 1098.2 / 1131.9 1272.7 / 1310.1 -115.2 / -115.2
SaO2 [A/C] 100
SaO2 [NIV (Non Invasive 97
Ventilation)]
SaO2 99
Nasal Cannula flow liters per 98
minute
Physical Exam
General: Respiratory Distress (negative), Comfortable, Chills (negative) and Sweats (negative)
HEENT: Normocephalic, Anicteric and Other (ETT in place)
Cardiovascular: Irregular Rhythm (Irregularly irregular) and Peripheral Edema (negative)
Respiratory: Wheeze (n), Crackles (Basilar), Rhonchi (n), Non-Labored Respirations, Stridor (n) and ET Tube (Mechanical breath sounds heard bilaterally)
GI: Soft, Non Distended, Non Tender and Normal Bowel Sounds
Neurology: Other (Sedated; pupils +1 to +2 mm and sluggish; intact corneal reflexes; eyes are open - not following commands)
Skin: Warm, Dry, Cyanosis (n), Jaundice (n) and Rash (n)
Labs/Micro/Reports
Lab Data
03/23/25 03:38
03/23/25 03:38
Laboratory Results
03/23/25
04:23
pH 7.36
pCO2 46
pO2 82 L
HCO3 26.0
O2 Delivery Level 50
Microbiology
03/20/25 05:07 Blood/Venous Blood Culture - Preliminary
No Growth in 72 hours- Final report to follow
03/20/25 05:34 Blood/Venous Blood Culture - Preliminary
No Growth in 72 hours- Final report to follow
03/18/25 18:13 Urine Urine Culture - Final
Klebsiella pneumoniae
Enterococcus faecalis
03/18/25 17:02 Blood/Venous Blood Culture - Final
Klebsiella pneumoniae
03/18/25 17:02 Blood/Venous Gram Stain - Final
03/18/25 17:01 Blood/Venous Blood Culture - Final
Klebsiella pneumoniae
03/18/25 17:01 Blood/Venous Gram Stain - Final
03/18/25 23:17 Nose MRSA Screen - Final
No Methicillin Resistant Staphylococcus aureus isolated.
--- NOTE | 2025-03-23 08:36 | W.PN.ID1 ---
Date of Service
Date of Service: March 23, 2025
Today's Communication
Continue Unasyn.
Assessment / Plan
# donor renal txp on immunosuppressive drugs (hold)
# Klebsiella bacteremia - source
# Transplant kidney pyelonephritis with Klebsiella and E. faecalis
# Obstructive uropathy of transplant kidney, esteves placed 03/15
# Acute hypoxemic respiratory failure - intubated 03/21.
Suspect pulm edema superimposed on chronic inflammatory interstitial pneumonitis.
# ELIZABETH on CKD - HD started 03/20
# Hypotension during HD
# Fever - resolved
# Leukocytosis trended up due to steroid
-Repeat bcx's negative
- Check sputum cx
-Ucx: Klebsiella and Enterococcus
- Continue Unasyn 3g IV q24H (d4)
- On steroid,per [employer]
Pt critically ill in ICU.
Conditions present on admission
donor renal transplant on mycophenolate, belatacept, prednisone 2.5 twice daily 2018
Atrial fibrillation
Post-COVID chronic inflammatory interstitial pneumonitis
Hypertension
BPH
Postherpetic neuralgia
Chronic back pain
Chief Complaint
-: UTI
Subjective / Review of Systems
Remains on vent.
Vital Signs / Physical Exam
Vital Signs
Vital Signs
Temp Pulse Resp BP Pulse Ox
97.8 F 87 20 100/53 99
03/23/25 03:51 03/23/25 06:45 03/23/25 06:45 03/23/25 06:45 03/23/25 08:17
Physical Exam
Constitutional: Acutely Ill
Eyes: No Conjunctival Hemorrhage and Sclera Anicteric
Cardiovascular: Regular Rate and S1/S2
Pulmonary: Clear (anterior lungs)
Gastrointestinal: Soft, Non Tender, Non Distended and Normal Bowel Sounds
Genito-Urinary: Esteves
Extremities: Negative Edema
Objective Data
Lab Data
Lab Results
03/23/25 03:38
03/23/25 03:38
PT 25.0 Sec (11.4-14.6) H 03/19/25 23:40
INR 2.25 03/19/25 23:40
APTT 40.4 Sec (23.4-35.0) H 03/19/25 23:40
Estimated Creat Clear 19 ml/min 03/23/25 03:38
Lactic Acid 1.2 mmol/L (0.7-2.0) 03/19/25 23:40
Total Bilirubin 3.4 mg/dl (0.2-1.3) H 03/23/25 03:38
AST 38 U/L (17-59) 03/23/25 03:38
ALT 79 U/L (0-50) H 03/23/25 03:38
Alkaline Phosphatase 54 U/L (38-126) 03/23/25 03:38
C-Reactive Protein > 270.00 mg/L (0.0-10.00) H 03/19/25 23:40
Most recent labs reviewed.
Micro Results:
03/20/25 05:07 Blood Culture - Preliminary
Blood/Venous No Growth in 72 hours- Final report to follow
03/20/25 05:34 Blood Culture - Preliminary
Blood/Venous No Growth in 72 hours- Final report to follow
03/18/25 18:13 Urine Culture - Final
Urine Klebsiella pneumoniae
Enterococcus faecalis
03/18/25 17:02 Blood Culture - Final
Blood/Venous Klebsiella pneumoniae
Gram Stain - Final
03/18/25 17:01 Blood Culture - Final
Blood/Venous Klebsiella pneumoniae
Gram Stain - Final
03/18/25 23:17 MRSA Screen - Final
Nose No Methicillin Resistant Staphylococcus aureus isolated.
03/18/25 17:03 Influenza Types A & B (NOLVIA) - Final
Nasal Swab Negative for Influenza A & B, NAAT
Negative results must be combined with clinical observations
and patient history.
Nucleic Acid Amplification test (NAAT)performed on the
[employer] platform.
03/20/25 CXR: Grossly stable severe diffuse bilateral interstitial and airspace disease which may reflect combination of pulmonary edema and pneumonia. Cannot rule out component of underlying chronic interstitial lung disease.
03/19/25 CXR: Progressive parenchymal disease process, as described. Differential includes progressive congestive heart failure with pulmonary edema versus diffuse bilateral pneumonia, right greater than left.
03/18/25 CT a/p: Severe acute edema and inflammation around the right lower quadrant renal transplant which is new from 12/17/2024. Severe hydronephrosis of the right intrarenal collecting system and right renal pelvis which has increased. ACUTE
PYELONEPHRITIS of the RIGHT LOWER QUADRANT RENAL TRANSPLANT is considered most likely. Acute infarction of the renal transplant is a less likely diagnostic possibility. Severe diffuse urinary bladder wall thickening with surrounding perivesical
inflammation which appears new from 12/17/2024 suggesting SEVERE ACUTE CYSTITIS. Esteves catheter in the urinary bladder. Mildly enlarged prostate gland.
--- NOTE | 2025-03-23 10:38 | W.PN.NEPH.PH ---
Today's Communication / Plan
-
HD tomorrow
Assessment/Plan
-
This is a 79-year-old gentleman who follows in our office with Dr. Muhammad after donor renal transplant 2019 from [facility]. His transplant course has been complicated by development of nephrotic range proteinuria as well as recent
cellular rejection December of this year. The episodes treated with Solu-Medrol. His creatinine has risen quickly over time in the last several months. He has gone from a creatinine around 2 now up to 4.4. He was noted to have hydronephrosis of
the transplanted kidney recently on ultrasound as well as CT scan. Esteves catheter was placed by urology a few days ago. His appetite has been poor as of late. Recently he also developed fever and malaise and this has brought him to the emergency
room. He was noted to be febrile in the ER. Blood pressure was stable though lower than his home readings of 132. He was 100 systolic in the ER. Creatinine was 4.7 with elevated lactate level and elevated white count. CT of the abdomen and
pelvis were performed with suspicion for pyelonephritis of the transplant. We are asked to assist in management of his renal issues.
Assessment
Sepsis syndrome, possible pyelonephritis
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
donor renal transplant with FSGS, recent T-cell rejection
Obstructive uropathy, Esteves catheter in place
ELIZABETH..
Anemia
Hyponatremia
lactic acidosis
[employer]-He had been making outpatient arrangements for eventual ESRD and transplant evaluation at [facility]/previously on peritoneal dialysis prior to transfer
Plan
ELIZABETH-progressive in setting of sepsis
now on HD, oligoanuric , HD tomorrow
cont pressors to keep MAP >65
Continue immunosuppressive regimen PT mycophenolate and iV solucortef
He is not yet due for belatacept.
Anemia better but decreasing trend post PRBC 03/22, has fe def withheld IV fe due to bacteremia but now that bld cx neg likely start with next HD
remains intubated, Fio2 40%-wean as able , has underlying interstitial lung disease
abx per ID
dose meds renally
poor prognosis
d/w nursing , ICU and family
CC time spent 40min
-
-
Date of Service: March 23, 2025
CC / HPI / ROS
-
Chief Complaint:
Sepsis
History of Present Illness:
Acute kidney injury multifactorial obstructive uropathy, sepsis
HD yesterday, wt down
remains on pressors for hypotension
remains intubated l, on 40% fio2
hb low 7.4, 1 PRBC on 03/22, plt low at 73-improving
Review of Systems:
oligoanuric with esteves
no fever
wt decreasing
awake but not following commands during visit on sedation
Labs
-
Labs:
WBC 12.4 10^3/uL (4.8-10.8) H 03/23/25 03:38
RBC 2.54 10^6/uL (4.70-6.10) L 03/23/25 03:38
Hgb 7.5 g/dL (13.0-18.0) L 03/23/25 03:38
Hct 23.9 % (39.0-52.0) L 03/23/25 03:38
Plt Count 73 10^3/uL (130-400) L 03/23/25 03:38
Sodium 136 mmol/L (135-145) 03/23/25 03:38
Potassium 4.1 mmol/L (3.5-5.1) 03/23/25 03:38
Chloride 98 mmol/L (98-107) 03/23/25 03:38
Carbon Dioxide 27 mmol/L (22-30) 03/23/25 03:38
BUN 76 mg/dl (9-20) H 03/23/25 03:38
Creatinine 3.4 mg/dL (0.7-1.3) H 03/23/25 03:38
eGFR 17.63 03/23/25 03:38
Glucose 158 mg/dl (70-99) H 03/23/25 03:38
Calcium 7.5 mg/dl (8.4-10.2) L 03/23/25 03:38
Phosphorus 7.2 mg/dl (2.5-4.5) H 03/23/25 03:38
Hmj-Q-Cllkfrtmwml Pept > 43719 pg/ml 03/19/25 23:51
Albumin 2.7 g/dl (3.5-5.0) L 03/23/25 03:38
Physical Exam
-
Vital Signs:
Vital Signs
Temp Pulse Resp BP Pulse Ox
98.2 F 87 20 100/53 99
03/23/25 08:00 03/23/25 06:45 03/23/25 06:45 03/23/25 06:45 03/23/25 08:17
Cardiovascular:: Regular rate and rhythm
Respiratory:: Bilateral: Coarse
Lung Excursion:: Abnormal
Abdomen:: Nontender and Soft
Extremity Edema:: None: Bilateral:
Esteves Catheter: Yes
[2025-03-23] MEDS: CELLCEPT 1000 MG TUBE (11:12)
[2025-03-23] MEDS: SENOKOT-S 1 TABLET TUBE (11:12)
[2025-03-23] MEDS: MIRALAX 17 GRAMS TUBE (11:12)
[2025-03-23] MEDS: NSS (PRESERVATIVE FREE) 10 ML IV ×2 (11:13→19:35)
[2025-03-23] MEDS: ELIQUIS TUBE (11:13)
[2025-03-23] MEDS: UNASYN IV (11:28)
[2025-03-23] MEDS: PRECEDEX 100 IV ×2 (11:49→20:15)
--- NOTE | 2025-03-23 12:00 | PTCARENOTE ---
Pt sedated on ventilator. Weaning Propofol and transitioning to Precedex per . Aflutter on monitor. Remains on Phenylephrine gtt. Lungs CTA. 200ml coffee ground secretions from DHT this am. MD notified. DHT removed. Now on low intermittent
suction via [place] sump. Urine slightly blood tinged via esteves. All other assessments unchanged. Family at bedside.
--- NOTE | 2025-03-23 12:11 | W.PN.HOSP.TC ---
Addendum entered and electronically signed by Marco Antonio Antonio MD 03/23/25 12:47:
suspected acute pulm edema
Original Note:
Today's Communication/Plan
-
SBT as tolerated if possible
wean pressors as tolerated
IV steroids
Iv antibiotics
monitor UOP
HD per nephro
Assessment / Plan
Assessment / Plan
General: No Apparent Distress
HEENT: NormoCephalic, Moist mucous membranes and Atraumatic
Respiratory: Rhonchi's, ETT tube noted, R chest wall HD catheter noted
Cardiac: S1/S2, Regular Rhythm and Murmur (3 out of 6 systolic murmur); No Rub, Peripheral Edema or JVD
GI: Soft, Non Tender, Non Distended and Normal Bowel Sounds;
Rectal: Deferred by Provider
-esteves
Musculoskeletal: No Clubbing, No Cyanosis
Skin: No Rash
Neuro: Sedated
79-year-old with history of end-stage renal disease status post kidney transplant 2019 on antirejection medications, hypertension, hyperlipidemia, atrial fibrillation on , urinary retention status post catheter placement on Saturday presenting
to the emergency department with fever and chills as well as weakness. CT scan consistent with transplant pyelonephritis. He still has persistent hydro which likely reflects chronic hydro compared to his prior ultrasound. Known anemia. Picture
consistent with pyelonephritis with bandemia and lactic acidemia consistent with sepsis.
PLAN:
Acute hypoxic respiratory failure likely secondary to pulmonary edema versus pneumonia versus interstitial lung disease
Status post intubation and on mechanical ventilation
-Started on Solu-Medrol 60 mg every 6 hours and now on hydrocortisone
-wean sedation/sbt as tolerated
-Already on antibiotics.
-Repeat echo
-Accounts Payables Clerk following
Sepsis shock associated with acute kidney injury, lactic acidosis secondary to Klebsiella bacteremia likely secondary to urinary tract infection
- Status post 30 mL/kg crystalloid in ED
- Blood cultures with Klebsiella identification noted. Urine culture also positive for Klebsiella. Repeat surveillance cultures negative so far
- Status post IV cefepime. Now on IV Unasyn.
- Can discontinue azithromycin
- some component of shock could be related to sedation
- ID following
Toxic metabolic encephalopathy likely secondary to shock versus ICU delirium versus hypoxemia versus uremia
- Currently on Precedex infusion.
Hydronephrosis - Resolving, cannot rule out post obstructive polyuria. Catheter placed by Dr. Jim as outpatient.
- maintain urinary catheter for now
- patient denies any alpha blockade but considering TURP
- monitor i/os
- f/u u/s after tx of rory
- continue cardura with hold parameters
RORY - Persistent RORY despite Esteves placement. Recent Treatment for rejection in December.
Metabolic acidosis
- Status post IV fluids with bicarbonate.
- Status post diuretics
- avoid nephrotoxins and renal dose medications
- Patient started on dialysis on 03/20/2025. s/p 3 session of HD so far.
- Volume removal should help with hypoxemia.
Transplant
- continue cellcept. On IV steroids
Anemia - Macrocytic anemia, recent normal sats but given IV iron infusion without improvement. Denies melena. Colonoscopy November ->single non-bleeding colonic angioectasia and internal hemorrhoids. On eliquis.
- Ferritin level elevated. Hemoglobin 7.5 s/p 3u of PRBC so far.
- type and screen and trend H&H for now
- Transfuse hgb <7
Thrombocytopenia likely secondary to septic shock
-Continue to trend platelets.
-If with significant drop may need to consider holding eliquis
AFIB Permanent
- on eliquis . BB held with shock.
DVT PPX - on eliquis
Code status - Full Code
Remains critically ill.
d/w with group product manager
Total Critical Care Time 44 minutes. I was immediately available to the patient and staff. I personally examined, reviewed labs, diagnostic images/reports, interpretations, treatment plans, discussed patient care with other providers and family
or caregivers (if patient is unable to make decisions), entered orders as appropriate and documented the medical record.
Anticipated Discharge: > 48 hours
Subjective/Interval History
-
Date of Service: March 23, 2025
remains intubated/sedated
on pressors
Objective Data
-
Labs:
Laboratory Results
03/23/25 03/23/25
03:38 04:23
WBC 12.4 H
Hgb 7.5 L
Hct 23.9 L
Plt Count 73 L
HCO3 26.0
Sodium 136
Potassium 4.1
Chloride 98
Carbon Dioxide 27
BUN 76 H
Creatinine 3.4 H
Glucose 158 H
Calcium 7.5 L
Total Bilirubin 3.4 H
AST 38
ALT 79 H
Alkaline Phosphatase 54
Vital Signs:
Vital Signs
Temp Pulse Resp BP Pulse Ox
98.1 F 87 20 100/53 99
03/23/25 11:40 03/23/25 06:45 03/23/25 06:45 03/23/25 06:45 03/23/25 08:17
I&O
03/22/25 03/23/25 03/24/25
06:59 06:59 06:59
Intake Total 1333.2 / 1366.9 1497.7 / 1535.1 188.0 / 188.0
Output Total 235 / 235 225 / 225 200 / 200
Balance 1098.2 / 1131.9 1272.7 / 1310.1 -12.0 / -12.0
[2025-03-23] MEDS: NEO-SYNEPHRINE 1% 260 MG IV (12:43)
--- NOTE | 2025-03-23 13:58 | CM ---
Intubated, SBT as tolerated, Wean pressors, IV/AB/Solu-Cortef. New HD. Per has not been on HD x 6 years. Was on peritoneal dialysis in the home prior to kidney transplant. Critically ill. Discharge POC: TBD. May need outpatient dialysis set
up or peritoneal in the home.
--- NOTE | 2025-03-23 16:00 | PTCARENOTE ---
weaning sedation. failed wean d/t apnea. Weaning phenylephrine.
All assessments unchanged.
[2025-03-23] MEDS: SENOKOT-S TUBE (19:34)
[2025-03-23] MEDS: CELLCEPT 170 MG IV (21:04)
--- NOTE | 2025-03-23 21:12 | PTCARENOTE ---
Received pt from previous RN. Pt opens eyes, does not follow commands. B/l wrist restraints in place. Afib/aflutter w/ PVCs on the monitor. ETT @ 25 cm #8, AC 20/550/40%/5, O2 sat 97%, lungs coarse. NGT repositioned xray showed coiling, repeat xray
showed coiling. NGT removed and replaced left nare @ 65 cm, awaiting another xray. Disla in place, blood tinged urine. Dex gtt (see worklist). Received pt on fent gtt, gtt weaned off (see worklist). CHG bath and mouth care provided. Safe environment
maintained.
--- NOTE | 2025-03-23 22:24 | W.PN.UPDATE ---
Update Note
Progress Note Update
Patient noted with blood dripping from mouth and b/L nostril, LT nostril more than RT. Mouth/ gums and tongue with no wound or sores noted. Mostly blood is dripping from nose to mouth.
- Eliquis been on hold.
- will monitor h&h q 6 hrs and Afrin ordered will use on gauze for bleeding as needed. Nasal packing will be difficult to place as NGT/LT nostril in place.
- hgb dropped to 6.8 previously 7.5. One unit of blood ordered.
--- NOTE | 2025-03-23 22:41 | PTCARENOTE ---
Pt with nose bleed, blood dripping from his nose and mouth. Pt assessed by ANALYSIS MGR. Afrin nasal spray ordered and H&H Q6.
[2025-03-23 22:44] LABS: Hematocrit 21.5 % (39.0-52.0); Hemoglobin 6.8 g/dL (13.0-18.0)
[2025-03-23] MEDS: AFRIN NASAL SPRAY 1 SPRAYS NASAL (22:58)
--- NOTE | 2025-03-23 23:47 | PTCARENOTE ---
Addendum entered by Margarita Calle RN 03/24/25 02:58:
ICU SENIOR PATROL AGENT packed pts left nostril, ENT consult in place. NGT removed for nostril to be packed and for pressure.
Original Note:
Hgb 6.8, 1 unit PRBCs ordered. 15 min VS check completed, VSS. JEAN Ayala packed pts right nostril, due to continuous bleeding.
[2025-03-23 23:57] LABS: Platelet Count 62 10^3/uL (130-400)
[2025-03-24] VITALS (80 sets, daily range): BP systolic 79–161; BP diastolic 42–99; BMI 21.7
[2025-03-24] MEDS: SOLU-CORTEF 50 MG IV ×3 (00:41→19:45)
[2025-03-24] MEDS: CALCIUM CHLORIDE 10% SYRINGE 60 MG IV (01:52)
--- NOTE | 2025-03-24 03:09 | W.PN.UPDATE ---
Update Note
Progress Note Update
0215 Continue bleeding through left nasal nostril. Removed NG tube, applied 1 cc of Epinephrine ( 1mg/ml) via standard nasal dressing for 3 minutes. Then placed rapid rhino in left nostril. ENT consulted for AM.
[2025-03-24 04:34] LABS: INR 1.44; PT 17.8 Sec (11.4-14.6)
[2025-03-24 04:35] LABS: APTT 26.8 Sec (23.4-35.0); Fibrinogen 516 MG/DL (199-459)
[2025-03-24 04:40] LABS: D-Dimer 2.25 ug/mlFEU (0.00-0.50)
[2025-03-24 04:48] LABS: Calcium 8.4 mg/dl (8.4-10.2); Carbon Dioxide 24 mmol/L (22-30); Chloride 102 mmol/L (98-107); Glucose 131 mg/dl (70-99); Potassium 4.1 mmol/L (3.5-5.1); Sodium 136 mmol/L (135-145); Triglycerides 338 mg/dl (10-149)
[2025-03-24 04:49] LABS: Hematocrit 24.4 % (39.0-52.0); Hemoglobin 7.9 g/dL (13.0-18.0); Mean Corp Hgb Conc. 32.4 g/dL (33.0-37.0); Mean Corpuscular Volume 93.1 fL (80.0-94.0); Platelet Count 55 10^3/uL (130-400); Red Cell Dist. Width 14.1 % (11.5-14.5)
--- NOTE | 2025-03-24 04:59 | PTCARENOTE ---
Systems reviewed, no new changes in assessment. AM labs provided. Safe environment maintained.
[2025-03-24 05:07] LABS: Blood Urea Nitrogen 118 mg/dl (9-20); Estimated Creatinine Clearance 14 ml/min; eGFR 12.94
[2025-03-24] MEDS: PRECEDEX 100 IV ×3 (05:12→23:39)
[2025-03-24 05:29] LABS: B.E. -2.1 mmol/L; HCO3 22.2 mmol/L (21-28); O2 Saturation % 98.5 % (94-98); PCO2 35 mmHg (35-48); PO2 103 mmHg (83-108); Potassium 4.0 mMOL/L (3.5-5.1); Sodium 135 mMOL/L (136-145)
[2025-03-24 05:31] LABS: O2 Therapy 40
[2025-03-24 06:28] LABS: Nucleated Red Blood Cells % 0 % (-)
[2025-03-24] MEDS: CELLCEPT TUBE (06:51)
[2025-03-24] MEDS: MIRALAX TUBE (06:52)
[2025-03-24] MEDS: SENOKOT-S TUBE ×2 (06:52→20:17)
[2025-03-24] MEDS: PROTONIX IV 40 MG IV ×2 (07:37→19:45)
[2025-03-24] MEDS: NSS (PRESERVATIVE FREE) 10 ML IV ×2 (07:37→19:45)
--- NOTE | 2025-03-24 07:51 | PTCARENOTE ---
Pt alert and following commands. Started on HD. Phenylephrine gtt restarted.
--- NOTE | 2025-03-24 08:27 | W.PN.INTV ---
Today's Communication / Plan
Recommendations
Antibiotics
Continue rapid Rhino in left nare as per ENT
HD per nephrology; may need CRRT depending on his pressor requirements and HDN going forward
Mechanical ventilation - -> tolerated SBT this morning however not extubated given his nosebleed and he is HD session this morning. Will try SBT again after HD later this afternoon
Continue to minimize sedation so that we can optimize mental status to prepare for extubation
Hydrocortisone will continue to be weaned � lowered to 50 mg IV q12hr today
Lauro-Synephrine; now off vaso since overnight - -> titrate to MAP >65
Bowel regimen
Hold Eliquis in setting of epistaxis/coffee-ground emesis (which I have suspicion that the coffee-ground emesis was due to his epistaxis) and downtrending Hb
Given that I cannot rule out a GIB, continue with PPI to 40mg BID
Patient remains critically ill with guarded prognosis
Continue ICU level of care
Assessment
-
79-year-old male with a 1 pack year smoking history, hypertension, nephrolithiasis, pulmonary nodule, atrial fibrillation, and renal transplantation on mycophenolate and prednisone with recent ultrasound showing transplant hydronephrosis presented
with 2 days of fever found to be septic with ELIZABETH-pet adoption counselor consulted for sepsis/shock/ELIZABETH 03/20/2025.
Urosepsis with shock unresponsive to fluids requiring pressors
Bacteremia-Klebsiella
ELIZABETH-BUN/creatinine-105/5.8 now on iHD
Epistaxis involving left nare
Hydronephrosis in transplanted kidney
Acute hypoxic respiratory failure � intubated 03/21/2025
Chronic severe inflammatory interstitial pneumonitis
Renal transplantation since 2019
Chronic immunosuppression
Anemia
Thrombocytopenia
Atrial fibrillation with rapid ventricular response
Leukocytosis
Hypocalcemia
Coffee-ground emesis
Conditions present prior to admission:
End-stage renal disease status post renal transplantation-[facility] 2018-follows at [facility]-Dr. Hines and locally Dr. Muhammad
Permanent atrial fibrillation/Eliquis.
Hypertension.
BPH.
Postherpetic neuralgia.
Chronic back pain.
Pulmonary nodule right base with negative PET followed by Dr. Olivarez-next CT 02/2025.
Fatty liver.
Inguinal hernia
Osteoporosis.
Hernia repair.
Cataract 2020. Transplant kidney December 2018.
Plan
Critically ill on mechanical ventilation and on pressors
He is starting to awaken now that he is off propofol and fentanyl drip and I am hoping that I can possibly extubate him today if he does well in a SBT
In the interim period:
- Continue with mechanical ventilation with daily SAT/SBT if clinically appropriate
- Maintain plateau pressure <30 and titrate FiO2 + PEEP to keep SpO2 >90-94%
- Continue aspiration precautions; keep HOB >30-45�
- prn nebulized bronchodilators - not currently bronchospastic
- Oropharyngeal + deep ETT suctioning with subglottic as needed
- Daily CXR + blood gas
- Daily vent adjustments as needed based on blood gas and SaO2
- Low level of sedation with goal RASS as 0 to -2
CXR on 03/23/2025 showed improvement with degree of pulmonary/interstitial edema, and his FiO2 requirements also improved from FiO2 50% to 40%.
Follows Dr. Olivarez for pulmonary nodule and possible interstitial lung disease-ILD serology negative-radiographs appear to have severe interstitial pneumonitis
Patient currently on mycophenolate
Interstitial lung disease serology unrevealing
High-dose steroids were initiated as oxygenation had not improved and not felt to be entirely fluid overload related-trialing hemodialysis for fluid removal-had been on prednisone 2.5 mg twice daily
I transitioned from Solu-Medrol to hydrocortisone and wean as he clinically improves
Follow radiographically
Cultures reviewed
Blood cultures 03/18/2025-initial positive Klebsiella and subsequent blood cultures negative
MRSA screen negative
Urine culture-Klebsiella and Enterococcus
Influenza negative
Empiric antibiotics-on Unasyn
Infectious disease consultation noted-correspondence reviewed
Trend WBC and monitor temperature curve
Nephrology on board
Hemodialysis as tolerated
Trialed levophed on 03/22 but overnight on 03/22 - 03/23 he developed ectopy, hence he was changed back to lauro. Continue to wean down Lauro as tolerated while keeping MAP>65
[address] line in place
Patient is now off vasopressin as of earlier this morning on 03/23
Replete calcium levels
Defer repletion of electrolytes to nephrology with HD
Lactate normalized as of 03/19/2025 and no longer need to continue trending at this time
Patient was transfused 1 unit PRBC on AM of 03/22; he also was transfused 1 unit PRBC on 03/19 as well as 1 unit on 03/20
Last transfusion was given last night (03/23) after his nosebleed
ENT is on board and this morning (03/24) the left nasal packing was replaced with a single rapid Rhino with 8 cc of air, and the right nare packing was removed and nare left unpacked. Patient currently does not have an NG tube and we will try to
avoid this if possible considering his bleeding that occurred overnight
Defer removal of rapid Rhino to ENT. Continue antibiotics for postobstructive sinusitis prophylaxis to prevent TSS
Given the above events, continue to hold Eliquis. I believe that his prior coffee-ground emesis that he had yesterday on 03/23 was due to nosebleed, however still unable to fully rule out a GI bleed. He continues to not have any bloody stool
Continue PPI 40mg IV BID for now - -> once a GI bleed is ruled out then we can go back to 40 mg once daily PPI
Continue trending Hb
Maintain Hb >7-8 g/dL, and keep platelets >50k
DVT prophylaxis: SCDs
Stress ulcer prophylaxis with PPI
Early nutrition if possible - currently unable to do tube feeds given that he has no PO access. If patient ends up being extubated then we will perform swallow evaluation before we start diet
Prognosis unfortunately poor with multiorgan dysfunction-goals of care discussion reviewed on 03/23 with the patient's daughters and with Dr. Genao; they understand that he is critically ill but they would like to continue full medical
management for now and are not interested in withdrawal care. As of 03/24, given that his mental status has improved, I recommend to continue with full aggressive management considering that he is improving.
The patient last saw Dr. Olivarez 03/08/2025 for ILD, restrictive lung disease and pulmonary nodule-has appointment for PFT 04/28/2025 at 3 PM [address] appointment [address] Olivarez 04/29/2025 at 11:15 AM
Critical care statement: A total of 41 minutes of critical care time was provided for this patient today. This includes management of unstable vital signs, evaluation of the patient at bedside, reviewing the patient's pertinent medical records
including radiographs, microbiology, laboratory evaluations, and discussion with primary team, consultants, pharmacy, nutrition, physical therapy, case management, charge nurse, critical care nursing, and respiratory therapy.
Office note Dr. Olivarez 03/08/2025 in regards to pulmonary nodule:
CT imaging August 2024 revealed approximately 1.3 cm nodular opacity in the right base, not present on previous exam.
Underwent a repeat CT in November 2024 Showed resolution of previously seen right basilar nodule but a new 1.4 cm nodule in the right lower lobe.
Underwent a PET scan 12/17/2024 which showed evolution of right lower lobe nodule, now presenting as large ground glass nodule measuring up to 3.9 cm. Highly suggestive of benign infectious/inflammatory process.
Repeat CT 02/2025: now demonstrate bilateral peribronchiolar ground glass infiltrate bilaterally.Unclear etiology, differential Dx includes inflammatory/infectious process vs pulmonary edema.there is evidence of small bilateral pleural effusions,
with history of aortic stenosis pulmonary edema except possibility.With ongoind immunosupresion will need to keep in my oportunistic infection.
Will obtain ILD serology, proBNP and inflmmatory markers.
Bronchoscopy with BAL may be required-if there is no evidence of volume overload.-Of note He was treated with an antibiotic and steroids middle of October 2024. He denies any active Symptoms suggesting infection.If He does produce any phlegm, we will
submit sputum culture
Diagnostic data:
Chest x-ray 03/18/2025-severe chronic inflammatory interstitial pneumonitis
CT abdomen and pelvis 03/18/2025-severe acute edema and inflammation around right lower quadrant renal transplantation, severe hydronephrosis, severe bilateral atrophic tanacross kidneys, small bilateral pleural effusions, increased coarse interstitial
markings throughout both lower lobes, right middle lobe with severe chronic inflammatory interstitial pneumonitis
ILD serology 03/10/2025-negative rheumatoid factor, ROXANNE, SSA antibodies, scleroderma antibody, proteinase [address] chest 02/23/2025 Reviewed Uriel Leong 03/08/2025 06:25:26 AM EDT >1. Resolution of previously seen right lower lobe 1.4 cm nodule.2. Mild to moderate changes of pulmonary fibrosis as seen previously.3. Superimposed upon the changes of
fibrosis, there is new large amount of bilateralperibronchovascular interstitial and groundglass opacity with small amount of bilateral upper lungairspace consolidation as detailed above. There are very small bilateral pleural effusions. Whileedema
is a differential consideration, findings are more suggestive of a superimposed infectious orinflammatory process. There is associated mild mediastinal adenopathy.-
PET CT 12/17/2024 reviewed: Uriel Leong 03/08/2025 06:25:44 AM EDT >The previously seen solid right lower lobe nodule has evolved/changed in morphology, nowpresenting as a large groundglass nodule measuring up to 3.9 cm which demonstrates
max SUV 4.7(delayed 5.4). Otherwise, no suspicious FDG avid lesions.ABDOMEN and PELVIS:No suspicious FDG-avid lesions.SKELETON:No suspicious FDG-avid lesions.This suggests inflammatory process.-
CT chest 2023: Reviewed Uriel Leong 07/05/2023 08:49:26 AM >1. No significant acute abnormality identified in the chest within the limits of unenhanced CT, asdescribed above. Probable residual fibrotic changes in the lungs, less
likely active pneumonitis.-
CT chest 02/27/2023: Reviewed Uriel Leong 03/06/2023 08:42:39 AM >There has been significant further improvement in the patient's bilateral parenchymal airspacedisease when compared with the previous examinations.Currently, there is mild
left and moderate diffuse coarsening of the interstitial markingsthroughout both lungs which at this point may be residual scarring/fibrosis rather than acuteinflammatory disease.There is mild cardiomegalyThere is atherosclerosis-
CT chest 11/23/2022: showed evidence of postinflammatory fibrosis. Groundglass opacities have resolved..
Pulmonary function testing ( 07/13/2024� ):FEV1: 3.4 L-107%FVC:3.96 L-89%FEV1/FVC ratio:86%T.52 L-73%RV:44%ERV:RV/TLC ratio:23%DLCO: 13.69-50%DLCO/VA: 70%
Echo 05/19/24: Normal biventricular size and function. EF 65%. Severely dilated LA. Paradoxical low flow low gradient aortic stenosis. Mild AR.
Subjective Dataa
Subjective Data
Date of Service:
Date of Service: March 24, 2025
Chief Complaint: Char Puller Follow Up and Pulmonary Follow Up
Subjective:
Patient developed a nosebleed which started yesterday evening around 10:30 PM � oxymetazoline given and the NGT was removed, with 1 cc of epinephrine via nasal dressing applied and then a rapid Rhino was inserted into the left nostril. ENT is with
the patient this morning to replace the nasal packing. Also, pt has bloody urine inside Disla.
This morning the patient is much more awake, following commands although he is slow to respond at times. Currently on Precedex at 0.3 mcg/kg/h and on Lauro-Synephrine at 20 mcg/min. He is also getting HD this morning. Remains intubated on AC/CMV at
550/20/40%/5, with VTe 593 cc, breathing at 30 breaths/min and PIP: 6 cmH2O. Current heart rate is at 133, BP 148/98 and he is saturating 98%. He seems agitated and uncomfortable.
Review of Systems
General: Other (Unobtainable as patient is intubated)
Objective Data
Data Reviewed
Vital Signs / I&O / Oxygen:
Vital Signs
Temp Pulse Resp BP Pulse Ox
97.9 F 134 17 102/66 98
03/24/25 07:06 03/24/25 09:41 03/24/25 09:41 03/24/25 07:00 03/24/25 09:47
Intake and Output
03/23/25 03/24/25 03/25/25
06:59 06:59 06:59
Intake Total 1497.7 / 1535.1 1271.0 / 1277.1 28.3 / 28.3
Output Total 225 / 225 1145 / 1145
Balance 1272.7 / 1310.1 126.0 / 132.1 28.3 / 28.3
SaO2 [A/C] 99
SaO2 [NIV (Non Invasive 97
Ventilation)]
SaO2 98
Nasal Cannula flow liters per 98
minute
Physical Exam
General: Respiratory Distress (negative), Chills (negative), Sweats (negative) and Other (Appears uncomfortable as nasal packing is being replaced)
HEENT: Normocephalic, Anicteric and Other (ETT in place)
Cardiovascular: Irregular Rhythm (Irregularly irregular), Peripheral Edema (negative) and Other (Tachycardic)
Respiratory: Wheeze (n), Crackles (Basilar), Rhonchi (n), Non-Labored Respirations, Stridor (n) and ET Tube (Mechanical breath sounds heard bilaterally)
GI: Soft, Non Distended, Non Tender and Normal Bowel Sounds
Neurology: Awake and Other (Following commands although slow to respond at times; able to give me a thumbs up with right hand)
Skin: Warm, Dry, Cyanosis (n), Jaundice (n) and Rash (n)
Labs/Micro/Reports
Lab Data
03/24/25 04:05
Laboratory Results
03/24/25 03/24/25
04:05 05:20
PT 17.8 H
INR 1.44
APTT 26.8
pH 7.41
pCO2 35
pO2 103
HCO3 22.2
O2 Delivery Level 40
Microbiology
03/20/25 05:07 Blood/Venous Blood Culture - Preliminary
No Growth in 4 days- Final report to follow
03/20/25 05:34 Blood/Venous Blood Culture - Preliminary
No Growth in 4 days- Final report to follow
03/18/25 18:13 Urine Urine Culture - Final
Klebsiella pneumoniae
Enterococcus faecalis
03/18/25 17:02 Blood/Venous Blood Culture - Final
Klebsiella pneumoniae
03/18/25 17:02 Blood/Venous Gram Stain - Final
03/18/25 17:01 Blood/Venous Blood Culture - Final
Klebsiella pneumoniae
03/18/25 17:01 Blood/Venous Gram Stain - Final
[2025-03-24] MEDS: RETACRIT 10000 UNITS IV (08:37)
--- NOTE | 2025-03-24 09:32 | W.PN.ID1 ---
Date of Service
Date of Service: March 24, 2025
Today's Communication
Continue Unasyn.
Assessment / Plan
# donor renal txp on immunosuppressive drugs (hold)
# Klebsiella bacteremia - source
# Transplant kidney pyelonephritis with Klebsiella and E. faecalis
# Obstructive uropathy of transplant kidney, esteves placed 03/15
# Acute hypoxemic respiratory failure - intubated 03/21.
Suspect pulm edema superimposed on chronic inflammatory interstitial pneumonitis.
# ELIZABETH on CKD - HD started 03/20
# Hypotension during HD
# Fever - resolved
# Leukocytosis resolved
-Repeat bcx's negative
-Ucx: Klebsiella and Enterococcus
- Continue Unasyn 3g IV q24H (d5)
- On steroid,per Yarn Handler
Pt remains critically ill in ICU.
Conditions present on admission
donor renal transplant on mycophenolate, belatacept, prednisone 2.5 twice daily 2018
Atrial fibrillation
Post-COVID chronic inflammatory interstitial pneumonitis
Hypertension
BPH
Postherpetic neuralgia
Chronic back pain
Chief Complaint
-: UTI
Subjective / Review of Systems
Awake on vent. Nosebleed overnight this am.
Vital Signs / Physical Exam
Vital Signs
Vital Signs
Temp Pulse Resp BP Pulse Ox
97.9 F 120 16 102/66 96
03/24/25 07:06 03/24/25 09:10 03/24/25 09:10 03/24/25 07:00 03/24/25 09:10
Physical Exam
Constitutional: Comfortable
Eyes: No Conjunctival Hemorrhage and Sclera Anicteric
Pulmonary: Clear (anteriorly)
Gastrointestinal: Soft, Non Tender, Non Distended and Normal Bowel Sounds
Genito-Urinary: Esteves and Hematuria
Extremities: Negative Edema
Neurological: Awake and Alert
Objective Data
Lab Data
Lab Results
03/24/25 04:05
PT 17.8 Sec (11.4-14.6) H 03/24/25 04:05
INR 1.44 03/24/25 04:05
APTT 26.8 Sec (23.4-35.0) 03/24/25 04:05
Estimated Creat Clear 14 ml/min 03/24/25 04:05
Lactic Acid 1.2 mmol/L (0.7-2.0) 03/19/25 23:40
Total Bilirubin 3.4 mg/dl (0.2-1.3) H 03/23/25 03:38
AST 38 U/L (17-59) 03/23/25 03:38
ALT 79 U/L (0-50) H 03/23/25 03:38
Alkaline Phosphatase 54 U/L (38-126) 03/23/25 03:38
C-Reactive Protein > 270.00 mg/L (0.0-10.00) H 03/19/25 23:40
Most recent labs reviewed.
Micro Results:
03/20/25 05:07 Blood Culture - Preliminary
Blood/Venous No Growth in 4 days- Final report to follow
03/20/25 05:34 Blood Culture - Preliminary
Blood/Venous No Growth in 4 days- Final report to follow
03/18/25 18:13 Urine Culture - Final
Urine Klebsiella pneumoniae
Enterococcus faecalis
03/18/25 17:02 Blood Culture - Final
Blood/Venous Klebsiella pneumoniae
Gram Stain - Final
03/18/25 17:01 Blood Culture - Final
Blood/Venous Klebsiella pneumoniae
Gram Stain - Final
03/18/25 23:17 MRSA Screen - Final
Nose No Methicillin Resistant Staphylococcus aureus isolated.
03/18/25 17:03 Influenza Types A & B (NOLVIA) - Final
Nasal Swab Negative for Influenza A & B, NAAT
Negative results must be combined with clinical observations
and patient history.
Nucleic Acid Amplification test (NAAT)performed on the
[employer] platform.
03/20/25 CXR: Grossly stable severe diffuse bilateral interstitial and airspace disease which may reflect combination of pulmonary edema and pneumonia. Cannot rule out component of underlying chronic interstitial lung disease.
03/19/25 CXR: Progressive parenchymal disease process, as described. Differential includes progressive congestive heart failure with pulmonary edema versus diffuse bilateral pneumonia, right greater than left.
03/18/25 CT a/p: Severe acute edema and inflammation around the right lower quadrant renal transplant which is new from 12/17/2024. Severe hydronephrosis of the right intrarenal collecting system and right renal pelvis which has increased. ACUTE
PYELONEPHRITIS of the RIGHT LOWER QUADRANT RENAL TRANSPLANT is considered most likely. Acute infarction of the renal transplant is a less likely diagnostic possibility. Severe diffuse urinary bladder wall thickening with surrounding perivesical
inflammation which appears new from 12/17/2024 suggesting SEVERE ACUTE CYSTITIS. Esteves catheter in the urinary bladder. Mildly enlarged prostate gland.
--- NOTE | 2025-03-24 09:55 | PN.CDI ---
CDI
- -
CDI:
Physician Documentation Request
Admit Date: 03/18/25 19:48
Dear Doctor Marisela,
Hospitalist progress notes state 'ELIZABETH - Persistent ELIZABETH despite Disla placement'
ID notes state 'ELIZABETH on CKD -HD started 03/20'
Please clarify which of the following accurately represents the patient's renal status:
____ - Acute kidney injury only
____ - ELIZABETH on CKD (please provide stage)
____ - Other
Criteria for ELIZABETH*
1 Increase in serum creatinine by > or = to 0.3 mg/dL (> or = to 26.5 micromol/L) within 48 hours, OR
2 Increase in serum creatinine to > or = to 1.5 times baseline, which is known or presumed to have occurred within 7 days, OR
3 Urine volume < 0.5 nL/kg/hour for six hours
Stages of Chronic Kidney Disease*
Level Description GFR
G1 Normal or High >90
G2 Mildly decreased 60-89
G3a Mildly to moderately decreased 45-59
G3b Moderately to severely decreased 30-44
G4 Severely decreased 15-29
G5 Kidney failure <15
Use of terms such as suspected, likely, concern for, or probable (associated with a specific diagnosis that is being evaluated, monitored, or treated as if it exists) are acceptable and can be coded in the inpatient setting, when documented at the
time of discharge.
Thank you,
Brandy Garcia RN, BSN
CDI Specialist
tiger text
Please use your independent medical judgment in providing your response.
*Source: Kidney Disease: Improving Global Outcomes (KDIGO) 2012
[2025-03-24] MEDS: SUBLIMAZE 50 MCG IV ×5 (09:58→23:25)
[2025-03-24] MEDS: VERSED 2 MG IV (10:18)
--- NOTE | 2025-03-24 11:11 | W.PN.NEPH.PH ---
Today's Communication / Plan
-
Dialysis
Assessment/Plan
-
This is a 79-year-old gentleman who follows in our office with Dr. Muhammad after donor renal transplant 2019 from [facility]. His transplant course has been complicated by development of nephrotic range proteinuria as well as recent
cellular rejection December of this year. The episodes treated with Solu-Medrol. His creatinine has risen quickly over time in the last several months. He has gone from a creatinine around 2 now up to 4.4. He was noted to have hydronephrosis of
the transplanted kidney recently on ultrasound as well as CT scan. Esteves catheter was placed by urology a few days ago. His appetite has been poor as of late. Recently he also developed fever and malaise and this has brought him to the emergency
room. He was noted to be febrile in the ER. Blood pressure was stable though lower than his home readings of 132. He was 100 systolic in the ER. Creatinine was 4.7 with elevated lactate level and elevated white count. CT of the abdomen and
pelvis were performed with suspicion for pyelonephritis of the transplant. We are asked to assist in management of his renal issues.
Assessment
Sepsis syndrome, possible pyelonephritis
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
donor renal transplant with FSGS, recent T-cell rejection
Obstructive uropathy, Esteves catheter in place
ELIZABETH..
Anemia
Hyponatremia
lactic acidosis
CLINIC ASSISTANT-He had been making outpatient arrangements for eventual ESRD and transplant evaluation at [place]/previously on peritoneal dialysis prior to transfer
Plan
ELIZABETH-progressive in setting of sepsis
now on HD, oligoanuric ,
cont pressors to keep MAP >65
Continue immunosuppressive regimen PT mycophenolate and iV solucortef
Anemia trend and transfuse as indicated�EPO with dialysis
remains intubated, Fio2 40%-wean as able , has underlying interstitial lung disease
abx per ID
dose meds renally
poor prognosis
Now with epistasis being seen by ENT
d/w nursing , ICU
CC time spent 40min
-
-
Date of Service: March 24, 2025
CC / HPI / ROS
-
Chief Complaint:
Sepsis
History of Present Illness:
Acute kidney injury multifactorial obstructive uropathy, sepsis
HD yesterday, wt down
remains on pressors for hypotension
remains intubated l, on 40% fio2
hb low 7.4, 1 PRBC on 03/22, plt low at 73-improving
Review of Systems:
oligoanuric with esteves
no fever
Agitated
Labs
-
Labs:
Hgb Cancelled 03/24/25 16:30
Hct Cancelled 03/24/25 16:30
Sodium 136 mmol/L (135-145) 03/24/25 04:05
Potassium 4.1 mmol/L (3.5-5.1) 03/24/25 04:05
Chloride 102 mmol/L (98-107) 03/24/25 04:05
Carbon Dioxide 24 mmol/L (22-30) 03/24/25 04:05
BUN 118 mg/dl (9-20) H* 03/24/25 04:05
Creatinine 4.4 mg/dL (0.7-1.3) H* 03/24/25 04:05
eGFR 12.94 03/24/25 04:05
Glucose 131 mg/dl (70-99) H 03/24/25 04:05
Calcium 8.4 mg/dl (8.4-10.2) 03/24/25 04:05
Phosphorus 7.2 mg/dl (2.5-4.5) H 03/23/25 03:38
Rwi-E-Pvsedhijpve Pept > 20027 pg/ml 03/19/25 23:51
Albumin 2.7 g/dl (3.5-5.0) L 03/23/25 03:38
Physical Exam
-
Vital Signs:
Vital Signs
Temp Pulse Resp BP Pulse Ox
97.9 F 134 17 102/66 98
03/24/25 07:06 03/24/25 09:41 03/24/25 09:41 03/24/25 07:00 03/24/25 09:47
--- NOTE | 2025-03-24 11:13 | W.PN.NEPH.HD ---
Assessment
-
Seen in dialysis tachycardic distressed increasing sedation. Turned off ultrafiltration for the time being
May need to be considering TERMITE TREATER
Progress Note - Hemodialysis
-
Date of Service: March 24, 2025
Duration: 15 minutes and 3 hours
Potassium Bath: 3
Calcium Bath: 2.5
Opti-Dialyzer: 160
Ultrafiltration: Other (2-2.5kg)
Blood Flow: 400
Dialysate Flow: 600
Heparin: no
EPO: [id number]
--- NOTE | 2025-03-24 12:00 | PTCARENOTE ---
All assessments unchanged.
--- NOTE | 2025-03-24 12:17 | W.CON.OTO ---
Addendum entered and electronically signed by Florentin Harper DO 03/24/25 12:49:
Additional diagnoses:
J34.2 - deviated nasal septum. This made for challenging nasal packing and likely made NG tube placement harder as well. Suspect septal bleeding as the source but will need further evaluation once bleeding resolved.
Original Note:
Otolaryngology Consult
Consult
Date/Time Consultation Requested: 03/24/2025; 0039
Date/Time Consultation Performed: 03/24/2025 0950
Requesting Provider: Ammy
Performing Provider: Leroy
Reason for Consultation: Epistaxis
Chief Complaint
Epistaxis
History of Present Illness
This is a 79yo man with ESRD s/p renal transplant in 2019, currently on antirejection medications, HTN, HLD, Afib on eliquis (held currently), and urinary retention s/p catheter placement 03/22/2025 who presented to ED w/ ELIZABETH, and sepsis 2/2
transplant pyelonephritis. He is currently intubated for airway protection due to altered mental status. He had an NG tube in left nostril and overnight developed epistaxis primarily from left nostrol but also pooling around to the right. This was
treated by overnight SENIOR FUNCTIONAL ANALYST who packed bilateral nasal cavities. This slowed bleeding and ENT was consulted for eval and management.
At time of eval patient remained partially packed in nasal cavities and with OG and ETT in place. No add'l history provided.
Medical History
Past Medical History: HTN and Hypercholesterolemia
Additional Past Medical History:
Afib
Additional Past Surgical History:
Renal transplant
Patient Allergies:
Allergies
Allergy/AdvReac Type Severity Reaction Status Date / Time
No Known Drug Allergies Allergy - Verified 03/18/25 16:11
Physical Exam
Vitals / Labs:
Vital Signs
Temp 98.1 F 03/24/25 11:29
Temp route: Axillary 03/24/25 11:29
Pulse 99 03/24/25 11:30
Rhythm: Atrial fibrillation 03/24/25 08:00
With- PVC's Monomorphic, Atrial flutter 03/24/25 08:00
Resp Rate 18 03/24/25 11:30
Systolic BP: 86 03/24/25 09:10
Blood pressure 129/71 03/24/25 11:30
Blood pressure extremity used: Right upper arm 03/24/25 01:36
Position: Lying 03/24/25 01:36
MAP (cuff-Jose Monitor) 87 03/24/25 11:30
SaO2 98 03/24/25 11:47
Nasal Cannula flow liters per minute 98 03/22/25 06:04
Oxygen Mode of Delivery Ventilator 03/24/25 01:36
% Oxygen delivered 40 03/23/25 20:40
Can the patient verbally communicate their pain? No 03/23/25 20:47
Actual Weight 72.6 kg 03/24/25 05:10
Body Mass Index (BMI) 21.7 03/24/25 05:10
etC02 value 24 03/24/25 11:30
Lab Results
03/24/25 16:30
03/24/25 04:05
PT 17.8 Sec (11.4-14.6) H 03/24/25 04:05
INR 1.44 03/24/25 04:05
Exam:
Otolaryngology-specialty specific physical exam: b/l nasal cavities partially packed with 5.5cm rapid rhinos. Rapid rhino balloon packs removed. No active bleeding, lots of clots. nasal cavities suctioned. oral cavity with dried blood. clots
suctioned from oropharynx. questionable rebleed upon suctioning. left NC packed with single 7.5cm rapid rhino and inflated with 8cc air. no further epistaxis.
Assessment / Plan
79yo man with hx renal transplant, Afib on eliquis (currently held) and left epistaxis related to combination of critical illness and NG tube trauma.
_ - left NC packing replaced with single 7.5cm rapid rhino with 8cc air
- if bleeding through or around pack returns, recommend adding additional 2-3cc of air to left balloon port and contacting ENT
- will leave right NC unpacked at this time and obs
- consider avoiding NG tube placement at this time, can maintain OG tube as needed
- plan for packing to remain in place ~48h before consideration of removal by ENT if no further substantial bleeding and Hgb stable
- would hold eliquis today and consider restarting tomorrow, 03/25/2025 while packing is still in place to help monitor for rebleeding while treatment measures are still in place
- trend Hgb and transfuse per protocol
- current abx will suffice for nasal packing post-obstructive sinusitis ppx
Please contact ENT with questions or concerns
Florentin Harper, DO
[phone]
Data Reviewed
Lab Data: Labs Reviewed by me (WBC 6.7 but difficult to interpret in setting of antirejection medications; Hgb 7.9 (6.8 prior, has been transfused) and Plt 55 (62).)
[2025-03-24] MEDS: CELLCEPT 170 MG IV ×2 (12:22→19:44)
--- NOTE | 2025-03-24 12:49 | W.PN.HOSP.TC ---
Today's Communication/Plan
-
Monitor vital signs see plan
Remains intubated
Status post PRBC, continue to monitor hemoglobin
ENT packing
Continue Unasyn
HD today
Assessment / Plan
Assessment / Plan
General: No Apparent Distress
HEENT: NormoCephalic, Moist mucous membranes,nose bleed with packing
Respiratory: Rhonchi's, ETT tube noted, R chest wall HD catheter noted
Cardiac: S1/S2, Regular Rhythm and Murmur (3 out of 6 systolic murmur)
GI: Soft, Non Tender, Non Distended and Normal Bowel Sounds;
Rectal: Deferred by Provider
-esteves
Skin: No Rash
Neuro: Sedated
79-year-old with history of end-stage renal disease status post kidney transplant 2018 on antirejection medications, hypertension, hyperlipidemia, atrial fibrillation on , urinary retention status post catheter placement on Saturday presenting
to the emergency department with fever and chills as well as weakness. CT scan consistent with transplant pyelonephritis. He still has persistent hydro which likely reflects chronic hydro compared to his prior ultrasound. Known anemia. Picture
consistent with pyelonephritis with bandemia and lactic acidemia consistent with sepsis.
PLAN:
Acute hypoxic respiratory failure likely secondary to pulmonary edema versus pneumonia versus interstitial lung disease
Status post intubation and on mechanical ventilation
On IV steroid
-wean sedation/sbt as tolerated
-Already on antibiotics.
-Repeat echo 03/23 with severe , normal EF
-Ingot Stripper following
Sepsis shock associated with acute kidney injury, lactic acidosis secondary to Klebsiella bacteremia likely secondary to urinary tract infection
- Status post 30 mL/kg crystalloid in ED
- Blood cultures with Klebsiella identification noted. Urine culture also positive for Klebsiella. Repeat surveillance cultures negative so far
- Status post IV cefepime. Now on IV Unasyn.
- some component of shock could be related to sedation.Currently on phenylephrine, wean as tolerated
- ID following
Epistaxis
Evaluated by ENT, status post left NC packing. Appears deviated septum per ENT. Monitor
Toxic metabolic encephalopathy likely secondary to shock versus ICU delirium versus hypoxemia versus uremia
- Currently on Precedex infusion.
Hydronephrosis - Resolving, cannot rule out post obstructive polyuria. Catheter placed by Dr. Jim as outpatient.
- maintain urinary catheter for now
- patient denies any alpha blockade but considering TURP
- monitor i/os
- f/u u/s after tx of elizabeth
- continue cardura with hold parameters when able
ELIZABETH - Persistent ELIZABETH despite Esteves placement. Recent Treatment for rejection in December.
Metabolic acidosis
- Status post IV fluids with bicarbonate.
- Status post diuretics
- avoid nephrotoxins and renal dose medications
- Patient started on dialysis on 03/20/2025. HD today
- Volume removal should help with hypoxemia.
Transplant
- continue cellcept. On IV steroids
Anemia - Macrocytic anemia, recent normal sats but given IV iron infusion without improvement. Denies melena. Colonoscopy November ->single non-bleeding colonic angioectasia and internal hemorrhoids. On eliquis.
- Ferritin level elevated. Hemoglobin Now 8.6 after blood transfusion.
- type and screen and trend H&H for now
- Transfuse hgb <7
Eliquis on hold
Thrombocytopenia likely secondary to septic shock
-Continue to trend platelets.
AFIB Permanent
- holding eliquis . BB held with shock.
Elevated heart rate today, continue to monitor.
DVT PPX - SCD's
Code status - Full Code
Remains critically ill.
Total Critical Care Time 42 minutes. I was immediately available to the patient and staff. I personally examined, reviewed labs, diagnostic images/reports, interpretations, treatment plans, discussed patient care with other providers and family
or caregivers (if patient is unable to make decisions), entered orders as appropriate and documented the medical record.
Anticipated Discharge: > 48 hours
Subjective/Interval History
-
Date of Service: March 24, 2025
Continues to be intubated, overnight with nosebleed
Objective Data
-
Labs:
Laboratory Results
03/24/25 03/24/25 03/24/25
04:05 04:05 04:05
WBC 6.7
Hgb 7.9 L Cancelled
Hct 24.4 L Cancelled
Plt Count 55 L
PT 17.8 H
INR 1.44
APTT 26.8
HCO3
Sodium 136
Potassium 4.1
Chloride 102
Carbon Dioxide 24
BUN 118 H*
Creatinine 4.4 H*
Glucose 131 H
Calcium 8.4
03/24/25 03/24/25 03/24/25
05:20 10:30 12:27
WBC Pending
Hgb Cancelled Pending
Hct Cancelled Pending
Plt Count Pending
PT
INR
APTT
HCO3 22.2
Sodium
Potassium
Chloride
Carbon Dioxide
BUN
Creatinine
Glucose
Calcium
03/24/25
16:30
WBC
Hgb Cancelled
Hct Cancelled
Plt Count
PT
INR
APTT
HCO3
Sodium
Potassium
Chloride
Carbon Dioxide
BUN
Creatinine
Glucose
Calcium
Vital Signs:
Vital Signs
Temp Pulse Resp BP Pulse Ox
98.1 F 99 18 129/71 98
03/24/25 11:29 03/24/25 11:30 03/24/25 11:30 03/24/25 11:30 03/24/25 11:47
I&O
11/11/25 11/12/25 11/13/25
06:59 06:59 06:59
Intake Total 1497.7 / 1535.1 1271.0 / 1277.1 40.5 / 40.5
Output Total 225 / 225 1145 / 1145
Balance 1272.7 / 1310.1 126.0 / 132.1 40.5 / 40.5
[2025-03-24 12:52] LABS: Hematocrit 26.1 % (39.0-52.0); Hemoglobin 8.6 g/dL (13.0-18.0); Mean Corp Hgb Conc. 33.0 g/dL (33.0-37.0); Mean Corpuscular Volume 91.9 fL (80.0-94.0); Platelet Count 74 10^3/uL (130-400); Red Cell Dist. Width 14.1 % (11.5-14.5)
[2025-03-24] MEDS: UNASYN IV (13:24)
--- NOTE | 2025-03-24 13:48 | PTCARENOTE ---
Increasing agitation. Afib HR 150-160s. Tachypneic. Respirations labored. Accessory muscle use. Stacking breaths. Lungs CTA. No secretions via ETT. Bloody oral secretions. Precedex gtt increased. PRN Fentanyl IVP.
--- NOTE | 2025-03-24 13:55 | CM ---
Intubated, Bleeding from L nostril, packed, ENT consult, NG removed, monitoring Hgb, HD, IV/Solu-Cortef and IV/Unasyn. Discharge POC: TBD.
[2025-03-24] MEDS: LOPRESSOR 5 MG IV (15:38)
--- NOTE | 2025-03-24 16:08 | PTCARENOTE ---
Removed protective sacral foam. Noted DTI. Barrier ointment applied. Continue to turn q2hrs and PRN. HR improved with IV Metoprolol. Respirations improved with Fentanyl IVP. Opens eyes. Occasionally follows commands. All other assessments
unchanged.
--- NOTE | 2025-03-24 16:22 | CHAP ---
Emotional and spiritual support provided. Prayer blanket given. Stories shared. Will follow.
[2025-03-24 18:30] LABS: Hematocrit 24.3 % (39.0-52.0); Hemoglobin 8.4 g/dL (13.0-18.0); Mean Corp Hgb Conc. 34.6 g/dL (33.0-37.0); Mean Corpuscular Volume 87.7 fL (80.0-94.0); Platelet Count 65 10^3/uL (130-400); Red Cell Dist. Width 13.9 % (11.5-14.5)
--- NOTE | 2025-03-24 20:12 | PTCARENOTE ---
Received pt from previous RN. Pt is drowsy, opens eyes, does not follow commands. B/l wrist restraints in place. Afib/aflutter w/ PVCs on the monitor. ETT #8 @ 25 cm, O2 sat 97%, lungs coarse. Vent settings AC 20/550/40%/5. Disla in place, bloody
urine, hygiene provided. Left nare packed. Dex gtt (see worklist). SCDs in place. CHG bath and mouth care provided. Safe environment maintained.
[2025-03-25] VITALS (18 sets, daily range): BP systolic 71–125; BP diastolic 47–84; BMI 21.6
[2025-03-25] MEDS: NEO-SYNEPHRINE 1% 260 MG IV (00:14)
--- NOTE | 2025-03-25 00:37 | PTCARENOTE ---
Systems reviewed. Lauro gtt restarted for MAP of 56 (see worklist). Pt following commands with mouth care. Restraints in place. Safe environment maintained.
[2025-03-25 00:53] LABS: Hemoglobin 7.5 g/dL (13.0-18.0)
--- NOTE | 2025-03-25 03:14 | W.PN.UPDATE ---
Update Note
Progress Note Update
Procedure Note: Arterial Line�
� Left Wrist Arrow 20 (07/14)�
Diagnosis:��Sepsis and acute respiratory failure
IV Line Comments: Uneventful Procedure�
Kim completed pre-procedure: Yes�
A-Line Comments: Sterile technique as per standard protocol, Ultrasound guided insertion�
Functioning�A-line in situ: Yes�
A-line Insertion Start Time:��0230
A-line in at:��0245
[2025-03-25] MEDS: SUBLIMAZE 50 MCG IV ×2 (04:40→09:35)
[2025-03-25 04:52] LABS: B.E. -2.6 mmol/L; HCO3 21.2 mmol/L (21-28); O2 Saturation % 99.5 % (94-98); PCO2 32 mmHg (35-48); PO2 117 mmHg (83-108); Potassium 4.0 mMOL/L (3.5-5.1); Sodium 136 mMOL/L (136-145)
[2025-03-25 04:53] LABS: O2 Therapy 40
--- NOTE | 2025-03-25 04:57 | PTCARENOTE ---
Systems reviewed, no new changes in assessment. Pt nodding head appropriately, following commands. AM labs provided. Safe environment maintained.
[2025-03-25 05:08] LABS: Blood Urea Nitrogen 89 mg/dl (9-20); Calcium 7.7 mg/dl (8.4-10.2); Carbon Dioxide 23 mmol/L (22-30); Chloride 102 mmol/L (98-107); Estimated Creatinine Clearance 19 ml/min; Glucose 124 mg/dl (70-99); Hematocrit 25.0 % (39.0-52.0); Hemoglobin 8.1 g/dL (13.0-18.0); Mean Corp Hgb Conc. 32.4 g/dL (33.0-37.0); Mean Corpuscular Volume 92.6 fL (80.0-94.0); Platelet Count 75 10^3/uL (130-400); Potassium 4.1 mmol/L (3.5-5.1); Red Cell Dist. Width 14.0 % (11.5-14.5); Sodium 136 mmol/L (135-145); eGFR 18.27
[2025-03-25] MEDS: CALCIUM CHLORIDE 10% SYRINGE 60 MG IV (06:01)
[2025-03-25 06:48] LABS: Macrocytosis 1+; Normal RBC Morphology No; Platelets Checked Yes
[2025-03-25 06:49] LABS: Hypochromasia 1+; Target Cells 1+
[2025-03-25 06:50] LABS: Absolute Neutrophils -Man Diff 8.9 10^3/uL (1.4-6.5); Total Cells Counted 100
[2025-03-25] MEDS: SOLU-CORTEF 50 MG IV ×2 (07:19→20:03)
[2025-03-25] MEDS: SENOKOT-S TUBE (07:19)
[2025-03-25] MEDS: MIRALAX TUBE (07:19)
[2025-03-25] MEDS: NSS (PRESERVATIVE FREE) 10 ML IV (07:20)
[2025-03-25] MEDS: PROTONIX IV 40 MG IV (07:20)
--- NOTE | 2025-03-25 07:46 | W.PN.ENT ---
Today's Communication
-
Patient, patient's RN
Impression / Plan
-
79yo man with left epistaxis thought to be due to combination of NG tube trauma and critical illness. He also has a hx of renal transplant on antirejection medications, afib on eliquis (currently held), deviated nasal septum.
- Hgb appears stable and responded well to previous blood transfusions, 8.1 this AM, suggesting no further bleeding and that the blood in OP is old
- would maintain packing forat least an additional 24h before consideration of removal
- would continue abx
- would hold eliquis again today if medically able to allow for more time for nasal cavity to heal
- can probably hold off on UGI bleed eval at this time as the blood and clots on OP appeared old and refluxed
Subjective Data
-
Pt seen and examined at bedside this AM. No further epistaxis. No further blood transfusions since >24h ago. Hgb this AM 8.1 which is increased from 7.5. Remains intubated and not sedated.
Objective Data
-
Vital Signs
Temp Pulse Resp BP Pulse Ox
98.4 F 98 16 124/61 98
03/25/25 07:45 03/25/25 06:45 03/25/25 06:45 03/25/25 04:00 03/25/25 06:45
Intake & Output
03/24/25 03/25/25 03/26/25
06:59 06:59 06:59
Intake:
IV fluids (Total) 471.0 / 477.1 298.1 / 298.1
Dex 170.0 / 176.1 241.1 / 241.1
Fentanyl 110.0 / 110.0
Lauro 135 / 135 57 / 57
Propofol 56.0 / 56.0
IV piggybacks 240 / 240 515 / 515
Amount instilled into GI Tube ( 60 / 60
Total)
[place] Sump 60 / 60
Blood Products 250 / 250
Packed red blood cells 250 / 250
Blood Product Amount Infused ( 250 / 250
mL)
Packed Rbc Leukoreduced Unit 250 / 250
[id number]
Output:
Gastrointestinal tube output ( 350 / 350
Total)
[place] Sump 350 / 350
Urine, Disla 795 / 795 400 / 400
Lab Results
03/25/25 04:23
03/25/25 04:23
PT 17.8 Sec (11.4-14.6) H 03/24/25 04:05
INR 1.44 03/24/25 04:05
APTT 26.8 Sec (23.4-35.0) 03/24/25 04:05
Calcium 7.7 mg/dl (8.4-10.2) L 03/25/25 04:23
Phosphorus 7.2 mg/dl (2.5-4.5) H 03/23/25 03:38
Magnesium 2.5 mg/dl (1.6-2.3) H 03/23/25 03:38
Total Bilirubin 3.4 mg/dl (0.2-1.3) H 03/23/25 03:38
Direct Bilirubin 2.8 mg/dl (0.0-0.4) H 03/23/25 03:38
AST 38 U/L (17-59) 03/23/25 03:38
ALT 79 U/L (0-50) H 03/23/25 03:38
Alkaline Phosphatase 54 U/L (38-126) 03/23/25 03:38
Triglycerides 338 mg/dl (10-149) H 03/24/25 04:05
Urine Color Yellow 03/18/25 18:13
Urine Clarity Cloudy (Clear) 03/18/25 18:13
Urine pH 6.0 (5.0-9.0) 03/18/25 18:13
Ur Specific [place] 1.015 (<1.030) 03/18/25 18:13
Urine Ketones Negative (Negative) 03/18/25 18:13
Physical Exam
-
Otolaryngology-specialty specific physical exam: NAD. Intubated orotracheally. Left NC packing remains in place and appears dry. No bleeding seen through or around packing. No R NC bleeding. Oral cavity and oropharynx with extensive clot. This was
removed using Yan[place] suction and tongue depressors. Normal [place] bifid uvula. No tongue, hard palate, soft palate injuries seen. Posterior pharyngeal wall appears normal without injury. Pt observed for 5-10 min and reevaluated after he was
postiioned flat for a sheet change from a BM. Redevelopment of blood and clots in pharynx, suctioned out again. No active bleeding seen from nasopharynx. Obs for another 5-10 min and OP examined - no reaccumulation of clots of bleeding. No bleeding
from WEB APPLICATIONS DEVELOPER
Chest: Other (intubated and on vent)
Respiratory: Other (on ventilator, stable settings)
Laboratory Results
-
WBC 9.8 (stable)
Plt 75 (stable)
Hgb 8.1 (up from 7.5, could be continued response to transfusion and suggests against ongoing significant obvious or occult bleed)
03/25/25 04:23
03/25/25 04:23
Laboratory Results
PT 17.8 Sec (11.4-14.6) H 03/24/25 04:05
INR 1.44 03/24/25 04:05
APTT 26.8 Sec (23.4-35.0) 03/24/25 04:05
pH 7.43 (7.35-7.45) 03/25/25 04:23
pCO2 32 mmHg (35-48) L 03/25/25 04:23
pO2 117 mmHg (83-108) H 03/25/25 04:23
HCO3 21.2 mmol/L (21-28) 03/25/25 04:23
Lactic Acid 1.2 mmol/L (0.7-2.0) 03/19/25 23:40
Total Bilirubin 3.4 mg/dl (0.2-1.3) H 03/23/25 03:38
AST 38 U/L (17-59) 03/23/25 03:38
ALT 79 U/L (0-50) H 03/23/25 03:38
Alkaline Phosphatase 54 U/L (38-126) 03/23/25 03:38
[2025-03-25] MEDS: CELLCEPT 170 MG IV (07:56)
--- NOTE | 2025-03-25 07:58 | W.PN.INTV ---
Today's Communication / Plan
Recommendations
Antibiotics
Continue rapid Rhino in left nare as per ENT - will likely have this removed tomorrow
Continue Precedex, weaning down as tolerated
SBT today with plan to extubate
HD per nephrology MWF; may need CRRT depending on his pressor requirements and HDN going forward
Mechanical ventilation - -> tolerated SBT yesterday AM however not extubated given his nosebleed and he was on HD - -> believe I can extubate him today but he is at risk of re-intubation given his significant physical deconditioning
Hydrocortisone will continue to be weaned �continue weaning with eventual resumption of his home prednisone
Keep MAP >65
Bowel regimen
Hold Eliquis in setting of epistaxis and downtrending Hb
Patient remains critically ill with guarded prognosis
Continue ICU level of care
Assessment
-
79-year-old male with a 1 pack year smoking history, hypertension, nephrolithiasis, pulmonary nodule, atrial fibrillation, and renal transplantation on mycophenolate and prednisone with recent ultrasound showing transplant hydronephrosis presented
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
Urosepsis with shock unresponsive to fluids requiring pressors
Bacteremia-Klebsiella
ELIZABETH-BUN/creatinine-105/5.8 now on iHD
Epistaxis involving left nare
Hydronephrosis in transplanted kidney
Acute hypoxic respiratory failure � intubated 03/21/2025
Chronic severe inflammatory interstitial pneumonitis
Renal transplantation since 2019
Chronic immunosuppression
Anemia
Thrombocytopenia
Atrial fibrillation with rapid ventricular response
Leukocytosis
Hypocalcemia
Conditions present prior to admission:
End-stage renal disease status post renal transplantation-[facility] 2018-follows at [facility]-Dr. Hines and locally Dr. Muhammad
Permanent atrial fibrillation/Eliquis.
Hypertension.
BPH.
Postherpetic neuralgia.
Chronic back pain.
Pulmonary nodule right base with negative PET followed by Dr. Olivarez-next CT 02/2025.
Fatty liver.
Inguinal hernia
Osteoporosis.
Hernia repair.
Cataract 2020. Transplant kidney December 2018.
Plan
Critically ill on mechanical ventilation; pressors have been stopped as of this morning
He is now awake (started to awaken much more profoundly on 03/24/2025 once he was taken off propofol and fentanyl drip). Again, I am hoping that I can extubate him today.
In the interim period:
- Continue with mechanical ventilation with daily SAT/SBT if clinically appropriate
- Maintain plateau pressure <30 and titrate FiO2 + PEEP to keep SpO2 >90-94%
- Continue aspiration precautions; keep HOB >30-45�
- prn nebulized bronchodilators - not currently bronchospastic
- Oropharyngeal + deep ETT suctioning with subglottic as needed
- Daily CXR + blood gas
- Daily vent adjustments as needed based on blood gas and SaO2
- Low level of sedation with goal RASS as 0 to -2
CXR on 03/23/2025 showed improvement with degree of pulmonary/interstitial edema, and his FiO2 requirements also improved from FiO2 50% to 40%.
Repeat CXR today shows continued interstitial edema
Follows Dr. Olivarez for pulmonary nodule and possible interstitial lung disease-ILD serology negative-radiographs appear to have severe interstitial pneumonitis
Patient currently on mycophenolate
Interstitial lung disease serology unrevealing
High-dose steroids were initiated as oxygenation had not improved and not felt to be entirely fluid overload related-trialing hemodialysis for fluid removal-had been on prednisone 2.5 mg twice daily
I transitioned from Solu-Medrol to hydrocortisone and wean as he clinically improves eventually going back to his home dose of prednisone
Follow radiographically
Cultures reviewed
Blood cultures 03/18/2025-initial positive Klebsiella and subsequent blood cultures negative
MRSA screen negative
Urine culture-Klebsiella and Enterococcus
Influenza negative
Empiric antibiotics-on Unasyn
Infectious disease consultation noted-correspondence reviewed
Trend WBC and monitor temperature curve
Nephrology on board
Hemodialysis as tolerated
Trialed levophed on 03/22 but overnight on 03/22 - 03/23 he developed ectopy, hence he was changed back to lauro. Now off Lauro-Synephrine as of this morning (03/25); keep MAP >[address] line in place
Patient has been off vasopressin as of morning of 03/23
Replete calcium levels
Defer repletion of electrolytes to nephrology with HD
Lactate normalized as of 03/19/2025 and no longer need to continue trending at this time
Patient was transfused 1 unit PRBC on AM of 03/22; he also was transfused 1 unit PRBC on 03/19 as well as 1 unit on 03/20
Last transfusion was given on evening of 03/23 after his nosebleed
ENT is on board and this morning (03/24) the left nasal packing was replaced with a single rapid Rhino with 8 cc of air, and the right nare packing was removed and left unpacked. Patient currently does not have an NG tube and we will try to avoid
this if possible considering his bleeding that occurred
Defer removal of rapid Rhino to ENT. Continue antibiotics for postobstructive sinusitis prophylaxis to prevent TSS
Given the above events, continue to hold Eliquis. I believe that his prior coffee-ground emesis that he had on 03/23 was due to nosebleed - highly unlikely GI bleed at this time. He continues to not have any bloody stool
Continue PPI 40mg but lower from IV BID back down to once daily
Continue trending Hb
Maintain Hb >7-8 g/dL, and keep platelets >50k
DVT prophylaxis: SCDs
Stress ulcer prophylaxis with PPI
Early nutrition if possible - currently unable to do tube feeds given that he has no PO access. If patient ends up being extubated then we will perform swallow evaluation before we start diet
Prognosis unfortunately poor with multiorgan dysfunction-goals of care discussion reviewed on 03/23 with the patient's daughters and with Dr. Genao; they understand that he is critically ill but they would like to continue full medical
management for now and are not interested in withdrawal care. As of 03/24, given that his mental status has improved, I recommend to continue with full aggressive management considering that he is improving.
The patient last saw Dr. Olivarez 03/08/2025 for ILD, restrictive lung disease and pulmonary nodule-has appointment for PFT 04/28/2025 at 3 PM [address] appointment [address] Olivarez 04/29/2025 at 11:15 AM
Critical care statement: A total of 43 minutes of critical care time was provided for this patient today. This includes management of unstable vital signs, evaluation of the patient at bedside, reviewing the patient's pertinent medical records
including radiographs, microbiology, laboratory evaluations, and discussion with primary team, consultants, pharmacy, nutrition, physical therapy, case management, charge nurse, critical care nursing, and respiratory therapy.
Office note Dr. Olivarez 03/08/2025 in regards to pulmonary nodule:
CT imaging August 2024 revealed approximately 1.3 cm nodular opacity in the right base, not present on previous exam.
Underwent a repeat CT in November 2024 Showed resolution of previously seen right basilar nodule but a new 1.4 cm nodule in the right lower lobe.
Underwent a PET scan 12/17/2024 which showed evolution of right lower lobe nodule, now presenting as large ground glass nodule measuring up to 3.9 cm. Highly suggestive of benign infectious/inflammatory process.
Repeat CT 02/2025: now demonstrate bilateral peribronchiolar ground glass infiltrate bilaterally.Unclear etiology, differential Dx includes inflammatory/infectious process vs pulmonary edema.there is evidence of small bilateral pleural effusions,
with history of aortic stenosis pulmonary edema except possibility.With ongoind immunosupresion will need to keep in my oportunistic infection.
Will obtain ILD serology, proBNP and inflmmatory markers.
Bronchoscopy with BAL may be required-if there is no evidence of volume overload.-Of note He was treated with an antibiotic and steroids middle of October 2024. He denies any active Symptoms suggesting infection.If He does produce any phlegm, we will
submit sputum culture
Diagnostic data:
Chest x-ray 03/18/2025-severe chronic inflammatory interstitial pneumonitis
CT abdomen and pelvis 03/18/2025-severe acute edema and inflammation around right lower quadrant renal transplantation, severe hydronephrosis, severe bilateral atrophic [place] kidneys, small bilateral pleural effusions, increased coarse interstitial
markings throughout both lower lobes, right middle lobe with severe chronic inflammatory interstitial pneumonitis
ILD serology 03/10/2025-negative rheumatoid factor, ROXANNE, SSA antibodies, scleroderma antibody, proteinase [address] chest 02/23/2025 Reviewed Uriel Leong 03/08/2025 06:25:26 AM EDT >1. Resolution of previously seen right lower lobe 1.4 cm nodule.2. Mild to moderate changes of pulmonary fibrosis as seen previously.3. Superimposed upon the changes of
fibrosis, there is new large amount of bilateralperibronchovascular interstitial and groundglass opacity with small amount of bilateral upper lungairspace consolidation as detailed above. There are very small bilateral pleural effusions. Whileedema
is a differential consideration, findings are more suggestive of a superimposed infectious orinflammatory process. There is associated mild mediastinal adenopathy.-
PET CT 12/17/2024 reviewed: Uriel Leong 03/08/2025 06:25:44 AM EDT >The previously seen solid right lower lobe nodule has evolved/changed in morphology, nowpresenting as a large groundglass nodule measuring up to 3.9 cm which demonstrates
max SUV 4.7(delayed 5.4). Otherwise, no suspicious FDG avid lesions.ABDOMEN and PELVIS:No suspicious FDG-avid lesions.SKELETON:No suspicious FDG-avid lesions.This suggests inflammatory process.-
CT chest 2023: Reviewed Uriel Leong 07/05/2023 08:49:26 AM >1. No significant acute abnormality identified in the chest within the limits of unenhanced CT, asdescribed above. Probable residual fibrotic changes in the lungs, less
likely active pneumonitis.-
CT chest 02/27/2023: Reviewed Lisa Leongel 03/06/2023 08:42:39 AM >There has been significant further improvement in the patient's bilateral parenchymal airspacedisease when compared with the previous examinations.Currently, there is mild
left and moderate diffuse coarsening of the interstitial markingsthroughout both lungs which at this point may be residual scarring/fibrosis rather than acuteinflammatory disease.There is mild cardiomegalyThere is atherosclerosis-
CT chest 11/23/2022: showed evidence of postinflammatory fibrosis. Groundglass opacities have resolved..
Pulmonary function testing ( 07/13/2024� ):FEV1: 3.4 L-107%FVC:3.96 L-89%FEV1/FVC ratio:86%T.52 L-73%RV:44%ERV:RV/TLC ratio:23%DLCO: 13.69-50%DLCO/VA: 70%
Echo 05/19/24: Normal biventricular size and function. EF 65%. Severely dilated LA. Paradoxical low flow low gradient aortic stenosis. Mild AR.
Subjective Dataa
Subjective Data
Date of Service:
Date of Service: March 25, 2025
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
Subjective:
Patient was seen and evaluated this morning. ENT removed a large glob of blood from his oropharynx. Left-sided nasal packing remains in place.
Heart rate is 134, and he is intubated on AC/CMV at 550/20/40%/5. Plan for HD tomorrow. Urine remains bloody. No bloody BM seen. Heart rate 99, BP via A-line: 182/50, BP via NIBP: 90/79 and he is saturating 98%.
Review of Systems
General: Other (Unobtainable as patient is intubated)
Objective Data
Data Reviewed
Vital Signs / I&O / Oxygen:
Vital Signs
Temp Pulse Resp BP Pulse Ox
98.4 F 108 18 124/61 97
03/25/25 04:32 03/25/25 06:15 03/25/25 06:15 03/25/25 04:00 03/25/25 06:15
Intake and Output
03/23/25 03/24/25 03/25/25
06:59 06:59 06:59
Intake Total 1497.7 / 1535.1 1271.0 / 1277.1 813.1 / 813.1
Output Total 225 / 225 1145 / 1145 400 / 400
Balance 1272.7 / 1310.1 126.0 / 132.1 413.1 / 413.1
SaO2 [A/C] 98
SaO2 [NIV (Non Invasive 97
Ventilation)]
SaO2 97
Nasal Cannula flow liters per 98
minute
Physical Exam
General: Respiratory Distress (negative), Chills (negative) and Sweats (negative)
HEENT: Normocephalic, Anicteric and Other (ETT in place)
Cardiovascular: Irregular Rhythm (Irregularly irregular) and Peripheral Edema (negative)
Respiratory: Wheeze (n), Crackles (Basilar), Rhonchi (n), Non-Labored Respirations, Stridor (n) and ET Tube (Mechanical breath sounds heard bilaterally)
GI: Soft, Non Distended, Non Tender and Normal Bowel Sounds
Neurology: Awake, Alert and Other (Following commands)
Skin: Warm, Dry, Cyanosis (n), Jaundice (n) and Rash (n)
Labs/Micro/Reports
Lab Data
03/25/25 04:23
03/25/25 04:23
Laboratory Results
03/25/25
04:23
pH 7.43
pCO2 32 L
pO2 117 H
HCO3 21.2
O2 Delivery Level 40
Microbiology
03/20/25 05:07 Blood/Venous Blood Culture - Final
No Growth - Final Report
03/20/25 05:34 Blood/Venous Blood Culture - Final
No Growth - Final Report
03/18/25 18:13 Urine Urine Culture - Final
Klebsiella pneumoniae
Enterococcus faecalis
--- NOTE | 2025-03-25 08:00 | PTCARENOTE ---
Received pt from previous RN. Pt is alert, opens eyes, follows commands, writing to make needs known. B/l wrist restraints in place. Afib/aflutter w/ PVCs on the monitor. ETT #8 @ 25 cm, O2 sat 97%, lungs coarse. Vent settings AC 20/550/40%/5. Disla
in place, bloody urine, hygiene provided. Left nare packed. Dex gtt (see worklist). SCDs in place. mouth care provided. Safe environment maintained.
--- NOTE | 2025-03-25 08:49 | PTCARENOTE ---
ENT to bedside. Multiple large clots removed from oropharynx equal to large orange in size-see note. After multiple clot retrievals, pt SOB and tachycardic to 140s.
--- NOTE | 2025-03-25 09:28 | PN.CDI ---
CDI
- -
CDI:
Physician Documentation Request
Admit Date: 03/18/25 19:48
Dear Doctor Harjinder,
Hospitalist progress notes state 'ELIZABETH - Persistent ELIZABETH despite Disla placement'
ID notes state 'ELIZABETH on CKD -HD started 03/20'
eGFR from this hospitalization and earlier in this year:
Laboratory Tests
08/27/24 10/29/24 11/30/24
06:38 06:40 06:30
eGFR > 60.00 51.13 33.32
12/09/24 02/09/25 02/23/25
06:38 06:35 06:40
eGFR 21.34 23.25 18.27
03/10/25 03/18/25 03/19/25
06:40 17:01 04:07
eGFR 12.94 11.95 10.84
03/20/25 03/22/25 03/23/25
05:07 03:44 03:38
eGFR 9.29 15.43 17.63
03/24/25
04:05
eGFR 12.94
Please clarify which of the following accurately represents the patient's renal status:
____ - Acute kidney injury only
____ - ELIZABETH on CKD (please provide stage)
____ - Other
Criteria for ELIZABETH*
1 Increase in serum creatinine by > or = to 0.3 mg/dL (> or = to 26.5 micromol/L) within 48 hours, OR
2 Increase in serum creatinine to > or = to 1.5 times baseline, which is known or presumed to have occurred within 7 days, OR
3 Urine volume < 0.5 nL/kg/hour for six hours
Stages of Chronic Kidney Disease*
Level Description GFR
G1 Normal or High >90
G2 Mildly decreased 60-89
G3a Mildly to moderately decreased 45-59
G3b Moderately to severely decreased 30-44
G4 Severely decreased 15-29
G5 Kidney failure <15
Use of terms such as suspected, likely, concern for, or probable (associated with a specific diagnosis that is being evaluated, monitored, or treated as if it exists) are acceptable and can be coded in the inpatient setting, when documented at the
time of discharge.
Thank you,
Brandy Garcia RN, BSN
CDI Specialist
tiger text
Please use your independent medical judgment in providing your response.
*Source: Kidney Disease: Improving Global Outcomes (KDIGO) 2012
--- NOTE | 2025-03-25 09:30 | W.PN.ID1 ---
Date of Service
Date of Service: March 25, 2025
Today's Communication
Continue Unasyn.
Assessment / Plan
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
# Klebsiella bacteremia - source
# Transplant kidney pyelonephritis with Klebsiella and E. faecalis
# Obstructive uropathy of transplant kidney, esteves placed 03/15
# Fever - resolved
# Leukocytosis resolved
-Repeat bcx's negative
-Ucx: Klebsiella and Enterococcus
-Continue Unasyn 3g IV q24H (d6)
# Acute hypoxemic respiratory failure - intubated 03/21.
- Pulm edema superimposed on chronic inflammatory interstitial pneumonitis.
- On steroid
# ELIZABETH on CKD - HD started 03/20
# Hypotension during HD weaning pressor
# Epistaxis, gross hematuria
- Eliquis on hold
Pt remains critically ill in ICU.
# Conditions present on admission
donor renal transplant on mycophenolate, belatacept, prednisone 2.5 twice daily 2018
Atrial fibrillation
Post-COVID chronic inflammatory interstitial pneumonitis
Hypertension
BPH
Postherpetic neuralgia
Chronic back pain
Chief Complaint
-: UTI
Subjective / Review of Systems
Awake on vent.
Vital Signs / Physical Exam
Vital Signs
Vital Signs
Temp Pulse Resp BP Pulse Ox
98.4 F 147 24 125/84 96
03/25/25 07:45 03/25/25 08:15 03/25/25 08:15 03/25/25 08:00 03/25/25 08:17
Physical Exam
Constitutional: No Acute Distress and Comfortable
Head: Other (left nasal packing in place)
Eyes: No Conjunctival Hemorrhage and Sclera Anicteric
Cardiovascular: S1/S2 (tachycardic)
Pulmonary: Clear (anteriorly) and Other (On vent)
Gastrointestinal: Soft, Non Tender, Non Distended and Normal Bowel Sounds
Genito-Urinary: Esteves and Hematuria
Extremities: Negative Edema
Neurological: Awake and Alert
Objective Data
Lab Data
Lab Results
03/25/25 04:23
03/25/25 04:23
PT 17.8 Sec (11.4-14.6) H 03/24/25 04:05
INR 1.44 03/24/25 04:05
APTT 26.8 Sec (23.4-35.0) 03/24/25 04:05
Estimated Creat Clear 19 ml/min 03/25/25 04:23
Lactic Acid 1.2 mmol/L (0.7-2.0) 03/19/25 23:40
Total Bilirubin 3.4 mg/dl (0.2-1.3) H 03/23/25 03:38
AST 38 U/L (17-59) 03/23/25 03:38
ALT 79 U/L (0-50) H 03/23/25 03:38
Alkaline Phosphatase 54 U/L (38-126) 03/23/25 03:38
C-Reactive Protein > 270.00 mg/L (0.0-10.00) H 03/19/25 23:40
Most recent labs reviewed.
Micro Results:
03/20/25 05:07 Blood Culture - Final
Blood/Venous No Growth - Final Report
03/20/25 05:34 Blood Culture - Final
Blood/Venous No Growth - Final Report
03/18/25 18:13 Urine Culture - Final
Urine Klebsiella pneumoniae
Enterococcus faecalis
03/18/25 17:02 Blood Culture - Final
Blood/Venous Klebsiella pneumoniae
Gram Stain - Final
03/18/25 17:01 Blood Culture - Final
Blood/Venous Klebsiella pneumoniae
Gram Stain - Final
03/18/25 23:17 MRSA Screen - Final
Nose No Methicillin Resistant Staphylococcus aureus isolated.
03/18/25 17:03 Influenza Types A & B (NOLVIA) - Final
Nasal Swab Negative for Influenza A & B, NAAT
Negative results must be combined with clinical observations
and patient history.
Nucleic Acid Amplification test (NAAT)performed on the
Piictu platform.
03/20/25 CXR: Grossly stable severe diffuse bilateral interstitial and airspace disease which may reflect combination of pulmonary edema and pneumonia. Cannot rule out component of underlying chronic interstitial lung disease.
03/19/25 CXR: Progressive parenchymal disease process, as described. Differential includes progressive congestive heart failure with pulmonary edema versus diffuse bilateral pneumonia, right greater than left.
03/18/25 CT a/p: Severe acute edema and inflammation around the right lower quadrant renal transplant which is new from 12/17/2024. Severe hydronephrosis of the right intrarenal collecting system and right renal pelvis which has increased. ACUTE
PYELONEPHRITIS of the RIGHT LOWER QUADRANT RENAL TRANSPLANT is considered most likely. Acute infarction of the renal transplant is a less likely diagnostic possibility. Severe diffuse urinary bladder wall thickening with surrounding perivesical
inflammation which appears new from 12/17/2024 suggesting SEVERE ACUTE CYSTITIS. Esteves catheter in the urinary bladder. Mildly enlarged prostate gland.
[2025-03-25] MEDS: LOPRESSOR 2.5 MG IV ×3 (10:03→22:35)
--- NOTE | 2025-03-25 10:59 | W.PN.NEPH.PH ---
Today's Communication / Plan
-
Discontinue CellCept
Dialysis Saturday
Assessment/Plan
-
This is a 79-year-old gentleman who follows in our office with Dr. Muhammad after donor renal transplant 2019 from [facility]. His transplant course has been complicated by development of nephrotic range proteinuria as well as recent
cellular rejection December of this year. The episodes treated with Solu-Medrol. His creatinine has risen quickly over time in the last several months. He has gone from a creatinine around 2 now up to 4.4. He was noted to have hydronephrosis of
the transplanted kidney recently on ultrasound as well as CT scan. Esteves catheter was placed by urology a few days ago. His appetite has been poor as of late. Recently he also developed fever and malaise and this has brought him to the emergency
room. He was noted to be febrile in the ER. Blood pressure was stable though lower than his home readings of 132. He was 100 systolic in the ER. Creatinine was 4.7 with elevated lactate level and elevated white count. CT of the abdomen and
pelvis were performed with suspicion for pyelonephritis of the transplant. We are asked to assist in management of his renal issues.
Assessment
Sepsis syndrome, possible pyelonephritis
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
donor renal transplant with FSGS, recent T-cell rejection
Obstructive uropathy, Esteves catheter in place
ELIZABETH..
Anemia
Hyponatremia
lactic acidosis
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
Plan
ELIZABETH-progressive in setting of sepsis
now on HD, oligoanuric > although the last 24 hours he has put about 500 cc urine out
cont pressors to keep MAP >65
With sepsis ongoing despite negative cultures surveillance will hold mycophenolate but continue iV solucortef
Anemia trend and transfuse as indicated�EPO with dialysis
remains intubated, Fio2 40%-wean as able , has underlying interstitial lung disease
abx per ID
dose meds renally
poor prognosis
Now with epistasis being seen by ENT= stabilized
No acute need for dialysis today
Next treatment planned for tomorrow, Saturday
Discussed the case with his primary projector booth operator Dr. Muhammad who has reached out to his
d/w nursing , ICU
CC time spent 40min
-
-
Date of Service: March 25, 2025
CC / HPI / ROS
-
Chief Complaint:
Sepsis
History of Present Illness:
Acute kidney injury multifactorial obstructive uropathy, sepsis
HD yesterday, wt down
remains on pressors for hypotension
remains intubated l, on 40% fio2
hb low 7.4, 1 PRBC on 03/22, plt low at 73-improving
Review of Systems:
oligoanuric with esteves
no fever
Agitated
Labs
-
Labs:
WBC 9.8 10^3/uL (4.8-10.8) 03/25/25 04:23
RBC 2.70 10^6/uL (4.70-6.10) L 03/25/25 04:23
Hgb 8.1 g/dL (13.0-18.0) L 03/25/25 04:23
Hct 25.0 % (39.0-52.0) L 03/25/25 04:23
Plt Count 75 10^3/uL (130-400) L 03/25/25 04:23
Sodium 136 mmol/L (135-145) 03/25/25 04:23
Potassium 4.1 mmol/L (3.5-5.1) 03/25/25 04:23
Chloride 102 mmol/L (98-107) 03/25/25 04:23
Carbon Dioxide 23 mmol/L (22-30) 03/25/25 04:23
BUN 89 mg/dl (9-20) H 03/25/25 04:23
Creatinine 3.3 mg/dL (0.7-1.3) H 03/25/25 04:23
eGFR 18.27 03/25/25 04:23
Glucose 124 mg/dl (70-99) H 03/25/25 04:23
Calcium 7.7 mg/dl (8.4-10.2) L 03/25/25 04:23
Phosphorus 7.2 mg/dl (2.5-4.5) H 03/23/25 03:38
Pmo-I-Qospmfekjol Pept > 47650 pg/ml 03/19/25 23:51
Albumin 2.7 g/dl (3.5-5.0) L 03/23/25 03:38
Physical Exam
-
Vital Signs:
Vital Signs
Temp Pulse Resp BP Pulse Ox
98.4 F 147 24 125/84 96
03/25/25 07:45 03/25/25 08:15 03/25/25 08:15 03/25/25 08:00 03/25/25 08:17
[2025-03-25] MEDS: UNASYN IV (11:21)
--- NOTE | 2025-03-25 12:27 | PTCARENOTE ---
Vent settings changed to ASV. Pt appears more comfortable with less work of breathing. Keyboarding Teacher to bedside, requesting a SBT. Trial currently ongoing. Alert and following commands.
[2025-03-25 13:11] LABS: B.E. -4.4 mmol/L; HCO3 19.6 mmol/L (21-28); O2 Saturation % 99.0 % (94-98); PCO2 31 mmHg (35-48); PO2 110 mmHg (83-108)
--- NOTE | 2025-03-25 13:15 | W.PN.HOSP.TC ---
Today's Communication/Plan
-
Monitor vital signs
see plan
Pain went as tolerated
Continue with Unasyn
HD per nephrology
Steroids
On Precedex
Assessment / Plan
Assessment / Plan
General: No Apparent Distress
HEENT: NormoCephalic, Moist mucous membranes,nose bleed with packing
Respiratory: Rhonchi's, ETT tube noted, R chest wall HD catheter noted
Cardiac: S1/S2, Regular Rhythm and Murmur (3 out of 6 systolic murmur)
GI: Soft, Non Tender, Non Distended and Normal Bowel Sounds;
Rectal: Deferred by Provider
-esteves
Skin: No Rash
Neuro: Sedated
79-year-old with history of end-stage renal disease status post kidney transplant 2018 on antirejection medications, hypertension, hyperlipidemia, atrial fibrillation on , urinary retention status post catheter placement on Saturday presenting
to the emergency department with fever and chills as well as weakness. CT scan consistent with transplant pyelonephritis. He still has persistent hydro which likely reflects chronic hydro compared to his prior ultrasound. Known anemia. Picture
consistent with pyelonephritis with bandemia and lactic acidemia consistent with sepsis.
PLAN:
Acute hypoxic respiratory failure likely secondary to pulmonary edema versus pneumonia versus interstitial lung disease
Status post intubation and on mechanical ventilation
On IV steroid
-wean sedation/sbt as tolerated
-Already on antibiotics.
-Repeat echo 03/23 with severe , normal EF
-[employer] following
Sepsis shock associated with acute kidney injury, lactic acidosis secondary to Klebsiella bacteremia likely secondary to urinary tract infection
- Status post 30 mL/kg crystalloid in ED
- Blood cultures with Klebsiella identification noted. Urine culture also positive for Klebsiella. Repeat surveillance cultures negative so far
- Status post IV cefepime. Now on IV Unasyn.
- some component of shock could be related to sedation.Currently on phenylephrine, wean as tolerated
- ID following
nephrology rec to hold celcept for now
Epistaxis
Evaluated by ENT, status post left NC packing. Appears deviated septum per ENT. Monitor
Toxic metabolic encephalopathy likely secondary to shock versus ICU delirium versus hypoxemia versus uremia
- Currently on Precedex infusion.
appears to be improving when off sedation
Hydronephrosis - Resolving, cannot rule out post obstructive polyuria. Catheter placed by Dr. Jim as outpatient.
- maintain urinary catheter for now
- patient denies any alpha blockade but considering TURP
- monitor i/os
- f/u u/s after tx of elizabeth
- continue cardura with hold parameters when able
ELIZABETH only- Persistent ELIZABETH despite Esteves placement. Recent Treatment for rejection in December.
Metabolic acidosis
- Status post IV fluids with bicarbonate.
- Status post diuretics
- avoid nephrotoxins and renal dose medications
- Patient started on dialysis on 03/20/2025. cw HD per nephrology
- Volume removal should help with hypoxemia.
donor renal transplant 2018 from [facility]
- cellcept on hold per nephrology. On IV steroids
now on HD
Anemia - Macrocytic anemia, recent normal sats but given IV iron infusion without improvement. Denies melena. Colonoscopy November ->single non-bleeding colonic angioectasia and internal hemorrhoids. On eliquis.
- Ferritin level elevated. Hemoglobin Now 8.1 after blood transfusion.
- type and screen and trend H&H for now
- Transfuse hgb <7
Eliquis on hold
Thrombocytopenia likely secondary to septic shock
-Continue to trend platelets.
AFIB Permanent
- holding eliquis . BB held with shock.
Elevated heart rate today, continue to monitor.
DVT PPX - SCD's
Code status - Full Code
Remains critically ill.
Total Critical Care Time 43 minutes. I was immediately available to the patient and staff. I personally examined, reviewed labs, diagnostic images/reports, interpretations, treatment plans, discussed patient care with other providers and family
or caregivers (if patient is unable to make decisions), entered orders as appropriate and documented the medical record.
Anticipated Discharge: > 48 hours
Subjective/Interval History
-
Date of Service: March 25, 2025
intubated
Objective Data
-
Labs:
Laboratory Results
03/25/25 03/25/25
04:23 13:01
WBC 9.8
Hgb 8.1 L
Hct 25.0 L
Plt Count 75 L
HCO3 21.2 19.6 L
Sodium 136
Potassium 4.1
Chloride 102
Carbon Dioxide 23
BUN 89 H
Creatinine 3.3 H
Glucose 124 H
Calcium 7.7 L
Vital Signs:
Vital Signs
Temp Pulse Resp BP Pulse Ox
98.3 F 105 23 90/79 98
03/25/25 11:55 03/25/25 12:15 03/25/25 12:15 03/25/25 12:00 03/25/25 12:15
I&O
03/24/25 03/25/25 03/26/25
06:59 06:59 06:59
Intake Total 1271.0 / 1277.1 813.1 / 820.1 324.3 / 324.3
Output Total 1145 / 1145 400 / 400 150 / 150
Balance 126.0 / 132.1 413.1 / 420.1 174.3 / 174.3
--- NOTE | 2025-03-25 13:57 | PTCARENOTE ---
Passed SBT with PS5/PEEP5. Pt extubated to NRB at 1350 as ordered by [employer] Working [employer].
--- NOTE | 2025-03-25 13:58 | CM ---
Extubated at this time. Remains on IV/Unasyn and IV/Solu-Cortef. Discharge POC: TBD.
--- NOTE | 2025-03-25 13:59 | RESPNOTE ---
Extubated to O2 6l, needed modflow then placed on NRBM, due to dest', SaO2 88%, RR:24, Congested cough
--- NOTE | 2025-03-25 16:40 | W.PN.UPDATE ---
Update Note
Progress Note Update
In the afternoon, patient switched to ASV and was breathing well, with heart rate in the upper 90s�lower 100s and was saturating 97%. He was placed onto a pressure support trial on 09/14 with blood gas obtained showing adequate ventilation with pH
7.41 and pCO2 31. At this time he was saturating 99% with a RSBI score of 55. To be even sure that his interstitial edema would not pose a risk, I lowered his PEEP to 0 which he remained off for 15-20 minutes. Patient then extubated to nasal
cannula without incident.
After patient was extubated he slowly became more hypoxic, and his now on a nonrebreather with mid flow nasal cannula at 10 L/min. When there is nursing care including turns, the patient gets very short of breath. The patient's and daughter
came to bedside and I spoke to them in the respite room. I was honest with them about the patient's clinical status which is poor. Patient's is not ready to transition him to comfort care. The summary of this short family meeting was to
continue with full medical management for now and to remain full code with the optimal hope that he will continue to improve although this is unlikely given his clinical state as he is at risk for reintubation as well as cardiac arrest. Also, the
patient himself, although is dyspneic with conversation, is awake enough to have his own goals of care discussion. I asked the patient that if he were to need the ventilator again to save his life, knowing that it may not be possible to take him
off the ventilator after, would he be okay with that. He said to 'do what we what to do.' It is not fully clear if he fully understands the gravity of his clinical situation.
This goals of care conversation will be an ongoing discussion between the patient and additional family members.
[2025-03-25] MEDS: PRECEDEX 100 IV (17:34)
--- NOTE | 2025-03-25 17:37 | PTCARENOTE ---
SpO2 87-88% on 12L MFNC. Pulmonary toilet and Aggressive oropharyngeal suctioning performed. NRB applied over MFNC for recovery. SpO2 to 83% during suctioning. Precedex gtt restarted as requested by director life sciences for relaxation and improved
oxygenation.
--- NOTE | 2025-03-25 20:46 | PTCARENOTE ---
Received pt from previous RN. Pt is AAOx3, slow speech, anxious at times, NEWTOK. Afib/Aflutter w/ PVCs on the monitor. Pt on 15L midflow O2 sat 100%, lungs coarse/rhonchi. Left nare packing in place. Pt w/ loose BM, sacrum foam soiled, barrier cream
provided. Disla in place, draining bloody urine, hygiene provided. Dex gtt (see worklist). SCDs in place. Family in to visit the pt. CHG bath provided. Call tao in reach. Safe environment maintained.
[2025-03-26] VITALS (8 sets, daily range): BP systolic 99–163; BP diastolic 53–77; BMI 21.5
--- NOTE | 2025-03-26 00:10 | PTCARENOTE ---
Systems reviewed, no new changes in assessment. NRB switched to aerosol mask 60% 10L, O2 sat 95%. Call tao in reach. Safe environment maintained.
--- NOTE | 2025-03-26 00:22 | RESPNOTE ---
pt placed on 10L/60% aerosol mask for humidification purposes. Sats 98%
[2025-03-26] MEDS: LOPRESSOR 2.5 MG IV ×4 (03:24→20:40)
[2025-03-26 03:34] LABS: B.E. -6.1 mmol/L; HCO3 18.3 mmol/L (21-28); O2 Saturation % 98.3 % (94-98); PCO2 31 mmHg (35-48); PO2 87 mmHg (83-108)
[2025-03-26 03:35] LABS: O2 Therapy 40
[2025-03-26 03:55] LABS: Hematocrit 25.5 % (39.0-52.0); Hemoglobin 8.2 g/dL (13.0-18.0); Mean Corp Hgb Conc. 32.2 g/dL (33.0-37.0); Mean Corpuscular Volume 94.1 fL (80.0-94.0); Platelet Count 76 10^3/uL (130-400); Red Cell Dist. Width 14.0 % (11.5-14.5)
[2025-03-26 04:01] LABS: Calcium 8.2 mg/dl (8.4-10.2); Carbon Dioxide 20 mmol/L (22-30); Chloride 102 mmol/L (98-107); Glucose 117 mg/dl (70-99); Magnesium 2.8 mg/dl (1.6-2.3); Potassium 4.2 mmol/L (3.5-5.1); Sodium 134 mmol/L (135-145)
--- NOTE | 2025-03-26 04:16 | PTCARENOTE ---
Systems reviewed, no new changes in assessment. AM labs provided. Call tao in reach. Safe environment maintained.
[2025-03-26 04:18] LABS: Blood Urea Nitrogen 119 mg/dl (9-20); Estimated Creatinine Clearance 14 ml/min; eGFR 13.30
[2025-03-26 04:24] LABS: Absolute Neutrophils -Man Diff 9.2 10^3/uL (1.4-6.5); Normal RBC Morphology No; Platelets Checked Yes; Poikilocytosis 1+
[2025-03-26 04:25] LABS: Burr Cells 1+; Macrocytosis 1+
[2025-03-26 04:26] LABS: Polychromasia 1+; Total Cells Counted 100
[2025-03-26] MEDS: PROTONIX IV 40 MG IV (07:17)
[2025-03-26] MEDS: SOLU-CORTEF 50 MG IV (07:17)
[2025-03-26] MEDS: NSS (PRESERVATIVE FREE) 10 ML IV (07:17)
--- NOTE | 2025-03-26 07:51 | W.PN.ENT ---
Today's Communication
-
patient and patient's RN
Impression / Plan
-
79yo man with left epistaxis thought to be due to combination of NG tube trauma and critical illness. He also has a hx of renal transplant on antirejection medications, afib on eliquis (currently held), deviated nasal septum.
Packed Left NC with rapid rhino balloon packing from 03/24 - 03/26
Packing deflated and removed 03/26 morning
- while on supplemental O2, humidification is critical for preventing rebleed
- OK to d/c abx from perspective of post-obstructive sinusitis perspective
- OK tor restart eliquis from ENT perspective. Will monitor for epistaxis rebleed over next 24h
- Would start gentle nasal saline sprays in b/l nasal cavities 1-2 sprays each nostril 3-4 times daily
- would start bactroban or similar to anterior nares b/l BID x7 days
- If rebleeding occurs, please apply generous amount of afrin nasal spray to affected nostril and apply pressure and contact ENT
Subjective Data
-
Pt did well ovn. Was extubated yesterday afternoon and placed on NRB. Unable to tolerate removal of NRB at this time. No further epistaxis. Hgb 8.2 this AM, stable from 8.1 24h ago.
Objective Data
-
Vital Signs
Temp Pulse Resp BP Pulse Ox
97.5 F 87 14 142/55 94
03/26/25 07:00 03/26/25 06:30 03/26/25 06:30 03/26/25 03:24 03/26/25 07:18
Intake & Output
03/25/25 03/26/25 03/27/25
06:59 06:59 06:59
Intake:
IV fluids (Total) 298.1 / 305.1 100.2 / 100.2
Dex 241.1 / 245.1 96.2 / 96.2
Lauro 57 / 60 4 / 4
IV piggybacks 515 / 515 290 / 290
Output:
Urine, Disla 400 / 400 600 / 600
Other:
Number of unmeasured liquid
stools
Rectum 1
Lab Results
03/26/25 03:21
03/26/25 03:21
PT 17.8 Sec (11.4-14.6) H 03/24/25 04:05
INR 1.44 03/24/25 04:05
APTT 26.8 Sec (23.4-35.0) 03/24/25 04:05
Calcium 8.2 mg/dl (8.4-10.2) L 03/26/25 03:21
Phosphorus 7.2 mg/dl (2.5-4.5) H 03/23/25 03:38
Magnesium 2.8 mg/dl (1.6-2.3) H 03/26/25 03:21
Total Bilirubin 3.4 mg/dl (0.2-1.3) H 03/23/25 03:38
Direct Bilirubin 2.8 mg/dl (0.0-0.4) H 03/23/25 03:38
AST 38 U/L (17-59) 03/23/25 03:38
ALT 79 U/L (0-50) H 03/23/25 03:38
Alkaline Phosphatase 54 U/L (38-126) 03/23/25 03:38
Triglycerides 338 mg/dl (10-149) H 03/24/25 04:05
Urine Color Yellow 03/18/25 18:13
Urine Clarity Cloudy (Clear) 03/18/25 18:13
Urine pH 6.0 (5.0-9.0) 03/18/25 18:13
Ur Specific Floral 1.015 (<1.030) 03/18/25 18:13
Urine Ketones Negative (Negative) 03/18/25 18:13
Physical Exam
-
Otolaryngology-specialty specific physical exam: NAD. Extubated and on NRB. Left NC packing in place and appears dry. OC/OP without active bleeding. No clots. Left NC packing deflated, patient observed for 10 min, no further bleeding. Packing
removed.
Chest: Other (extubated, on NRB)
Respiratory: Other (on NRB)
Laboratory Results
-
I reviewed the Hgb 8.2 (stable from prior 8.1), WBC 10.0 (stable from prior) and plt 76 (stable from prior 75)
03/26/25 03:21
03/26/25 03:21
Laboratory Results
PT 17.8 Sec (11.4-14.6) H 03/24/25 04:05
INR 1.44 03/24/25 04:05
APTT 26.8 Sec (23.4-35.0) 03/24/25 04:05
pH 7.38 (7.35-7.45) 03/26/25 03:21
pCO2 31 mmHg (35-48) L 03/26/25 03:21
pO2 87 mmHg (83-108) 03/26/25 03:21
HCO3 18.3 mmol/L (21-28) L 03/26/25 03:21
Lactic Acid 1.2 mmol/L (0.7-2.0) 03/19/25 23:40
Total Bilirubin 3.4 mg/dl (0.2-1.3) H 03/23/25 03:38
AST 38 U/L (17-59) 03/23/25 03:38
ALT 79 U/L (0-50) H 03/23/25 03:38
Alkaline Phosphatase 54 U/L (38-126) 03/23/25 03:38
--- NOTE | 2025-03-26 08:15 | W.PN.INTV ---
Today's Communication / Plan
Recommendations
Extubated yesterday, now on aerosol mask at FiO2 60%
Unfortunately he is not tolerating HD; may need to consider CRRT versus a slower HD session to see if this is better for him hemodynamically and clinically
Otherwise he will continue with HD on MWF
Antibiotics
Rapid Rhino in left nare now removed today via ENT
Will see if ENT can assist with placing a DHT for PO access
No longer needing Precedex
Hydrocortisone will continue to be weaned �continue weaning with eventual resumption of his home prednisone
Keep MAP >65
Bowel regimen
Hold Eliquis in setting of epistaxis and downtrending Hb
Patient remains critically ill with guarded prognosis
Continue ICU level of care
Assessment
-
79-year-old male with a 1 pack year smoking history, hypertension, nephrolithiasis, pulmonary nodule, atrial fibrillation, and renal transplantation on mycophenolate and prednisone with recent ultrasound showing transplant hydronephrosis presented
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
Septic shock due to UTI
Bacteremia-Klebsiella
ELIZABETH-BUN/creatinine-105/5.8 now on iHD
Epistaxis involving left nare s/p rapid Rhino via ENT
Hydronephrosis in transplanted kidney
Acute hypoxic respiratory failure � intubated 03/21/2025
Chronic severe inflammatory interstitial pneumonitis
Renal transplantation since 2019
Chronic immunosuppression
Anemia
Thrombocytopenia
Atrial fibrillation with rapid ventricular response
Leukocytosis
Hypocalcemia
Conditions present prior to admission:
End-stage renal disease status post renal transplantation-[facility] 2018-follows at [facility]-Dr. Hines and locally Dr. Muhammad
Permanent atrial fibrillation/Eliquis.
Hypertension.
BPH.
Postherpetic neuralgia.
Chronic back pain.
Pulmonary nodule right base with negative PET followed by Dr. Olivarez-next CT 02/2025.
Fatty liver.
Inguinal hernia
Osteoporosis.
Hernia repair.
Cataract 2020. Transplant kidney December 2018.
Plan
Patient remains critically ill, initially off vasopressors this morning at around 7 AM and now back on Lauro-Synephrine since HD has been started
He does not appear to be tolerating HD due to tachypnea, agitation and tachycardia
He was extubated yesterday, however since he has been extubated he has been hypoxic. Currently on an aerosol mask at 60% FiO2, saturating 93-94% he is also hypoxic
- Titrate FiO2 to maintain SpO2 >90-94%
- Given his epistaxis with globs of blood seen in the back of oropharynx in the last 1-2 days, would avoid significant positive airway pressure with BiPAP and/or high-flow nasal cannula
- Continue with aerosol mask for now, weaning down to mid flow nasal cannula after ENT reevaluates nasal cavity to assess if bleeding has stopped or not
- Continue aspiration precautions; keep HOB >30-45�
- prn nebulized bronchodilators - not currently bronchospastic
- Oral and NT-suctioning as needed as he does have a wet sounding cough but is not bringing up anything
- Remains low threshold to re-intubate
CXR on 03/23/2025 showed improvement with degree of pulmonary/interstitial edema, and his FiO2 requirements also improved from FiO2 50% to 40%.
Repeat CXR from 03/25 showed continued interstitial edema
Follows Dr. Olivarez for pulmonary nodule and possible interstitial lung disease-ILD serology negative-radiographs appear to have severe interstitial pneumonitis
Patient was on mycophenolate - -> DC'd per Nephro on 03/25
Interstitial lung disease serology unrevealing
High-dose steroids were initiated as oxygenation had not improved and not felt to be entirely fluid overload related-trialing hemodialysis for fluid removal-had been on prednisone 2.5 mg twice daily
I transitioned from Solu-Medrol to hydrocortisone and will ultimately wean back to his home dose of prednisone
Cultures reviewed
Blood cultures 03/18/2025-initial positive Klebsiella and subsequent blood cultures negative
MRSA screen negative
Urine culture-Klebsiella and Enterococcus
Influenza negative
Empiric antibiotics-on Unasyn
Infectious disease consultation noted-correspondence reviewed
Trend WBC and monitor temperature curve
Nephrology on board
Hemodialysis as tolerated; may need a slower rate of HD or even may consider CRRT to see if he tolerates this better
Trialed levophed on 03/22 but overnight on 03/22 - 03/23 he developed ectopy, hence he was changed back to lauro. He had been off Lauro-Synephrine as of morning of 03/25, but now required it again during HD due to hypotension; keep MAP >65
[address] line in place
Patient has been off vasopressin as of morning of 03/23
Replete calcium levels
Defer repletion of electrolytes to nephrology with HD
Lactate normalized as of 03/19/2025 and no longer need to continue trending at this time
Patient was transfused 1 unit PRBC on AM of 03/22; he also was transfused 1 unit PRBC on 03/19 as well as 1 unit on 03/20
Last transfusion was given on evening of 03/23 after his nosebleed
ENT is on board and on AM of 03/24 the left nasal packing was replaced with a single rapid Rhino with 8 cc of air, and the right nare packing was removed and left unpacked. Patient currently does not have an NG tube, and will ask ENT to place once
under endoscopic guidance, assuming he is not bleeding
If NGT is placed, then can start PO meds and tube feeds
Left nare rapid rhino removed today (03/26) per ENT
Given the above events, continue to hold Eliquis. I believe that his prior coffee-ground emesis that he had on 03/23 was due to nosebleed - highly unlikely GI bleed at this time. He continues to not have any bloody stool
Continue PPI 40mg
Continue trending Hb
Maintain Hb >7-8 g/dL, and keep platelets >50k
DVT prophylaxis: SCDs
Stress ulcer prophylaxis with PPI
Early nutrition if possible - currently unable to do tube feeds given that he has no PO access. 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 Will see if ENT can assist with placing a dobhoff tube today
Prognosis unfortunately poor with multiorgan dysfunction-goals of care discussion reviewed on 03/23 with the patient's daughters and with Dr. Genao; they understand that he is critically ill but they would like to continue full medical
management for now and are not interested in withdrawal care. As of 03/24, given that his mental status has improved, I recommend to continue with full aggressive management considering that he is improving.
Fortunately as of 03/25, he continues to be hypoxic and severely deconditioned after extubation. Goals of care discussion held with the and daughter on 03/25. They would like to continue with full medical care, as the feels that this is
what Johann would have wanted. I also discussed this goals of care with the patient himself and he says to do what ever is needed at this time.
The patient last saw Dr. Olivarez 03/08/2025 for ILD, restrictive lung disease and pulmonary nodule-has appointment for PFT 04/28/2025 at [address] appointment [address] Olivarez 04/29/2025 at 11:15 AM
Critical care statement: A total of 41 minutes of critical care time was provided for this patient today. This includes management of unstable vital signs, evaluation of the patient at bedside, reviewing the patient's pertinent medical records
including radiographs, microbiology, laboratory evaluations, and discussion with primary team, consultants, pharmacy, nutrition, physical therapy, case management, charge nurse, critical care nursing, and respiratory therapy.
Office note Dr. Olivarez 03/08/2025 in regards to pulmonary nodule:
CT imaging August 2024 revealed approximately 1.3 cm nodular opacity in the right base, not present on previous exam.
Underwent a repeat CT in November 2024 Showed resolution of previously seen right basilar nodule but a new 1.4 cm nodule in the right lower lobe.
Underwent a PET scan 12/17/2024 which showed evolution of right lower lobe nodule, now presenting as large ground glass nodule measuring up to 3.9 cm. Highly suggestive of benign infectious/inflammatory process.
Repeat CT 02/2025: now demonstrate bilateral peribronchiolar ground glass infiltrate bilaterally.Unclear etiology, differential Dx includes inflammatory/infectious process vs pulmonary edema.there is evidence of small bilateral pleural effusions,
with history of aortic stenosis pulmonary edema except possibility.With ongoind immunosupresion will need to keep in my oportunistic infection.
Will obtain ILD serology, proBNP and inflmmatory markers.
Bronchoscopy with BAL may be required-if there is no evidence of volume overload.-Of note He was treated with an antibiotic and steroids middle of October 2024. He denies any active Symptoms suggesting infection.If He does produce any phlegm, we will
submit sputum culture
Diagnostic data:
Chest x-ray 03/18/2025-severe chronic inflammatory interstitial pneumonitis
CT abdomen and pelvis 03/18/2025-severe acute edema and inflammation around right lower quadrant renal transplantation, severe hydronephrosis, severe bilateral atrophic council kidneys, small bilateral pleural effusions, increased coarse interstitial
markings throughout both lower lobes, right middle lobe with severe chronic inflammatory interstitial pneumonitis
ILD serology 03/10/2025-negative rheumatoid factor, ROXANNE, SSA antibodies, scleroderma antibody, proteinase [address] chest 02/23/2025 Reviewed Uriel Leong 03/08/2025 06:25:26 AM EDT >1. Resolution of previously seen right lower lobe 1.4 cm nodule.2. Mild to moderate changes of pulmonary fibrosis as seen previously.3. Superimposed upon the changes of
fibrosis, there is new large amount of bilateralperibronchovascular interstitial and groundglass opacity with small amount of bilateral upper lungairspace consolidation as detailed above. There are very small bilateral pleural effusions. Whileedema
is a differential consideration, findings are more suggestive of a superimposed infectious orinflammatory process. There is associated mild mediastinal adenopathy.-
PET CT 12/17/2024 reviewed: Uriel Leong 03/08/2025 06:25:44 AM EDT >The previously seen solid right lower lobe nodule has evolved/changed in morphology, nowpresenting as a large groundglass nodule measuring up to 3.9 cm which demonstrates
max SUV 4.7(delayed 5.4). Otherwise, no suspicious FDG avid lesions.ABDOMEN and PELVIS:No suspicious FDG-avid lesions.SKELETON:No suspicious FDG-avid lesions.This suggests inflammatory process.-
CT chest 2023: Reviewed Uriel Leong 07/05/2023 08:49:26 AM >1. No significant acute abnormality identified in the chest within the limits of unenhanced CT, asdescribed above. Probable residual fibrotic changes in the lungs, less
likely active pneumonitis.-
CT chest 02/27/2023: Reviewed Uriel Leong 03/06/2023 08:42:39 AM >There has been significant further improvement in the patient's bilateral parenchymal airspacedisease when compared with the previous examinations.Currently, there is mild
left and moderate diffuse coarsening of the interstitial markingsthroughout both lungs which at this point may be residual scarring/fibrosis rather than acuteinflammatory disease.There is mild cardiomegalyThere is atherosclerosis-
CT chest 11/23/2022: showed evidence of postinflammatory fibrosis. Groundglass opacities have resolved..
Pulmonary function testing ( 07/13/2024� ):FEV1: 3.4 L-107%FVC:3.96 L-89%FEV1/FVC ratio:86%T.52 L-73%RV:44%ERV:RV/TLC ratio:23%DLCO: 13.69-50%DLCO/VA: 70%
Echo 05/19/24: Normal biventricular size and function. EF 65%. Severely dilated LA. Paradoxical low flow low gradient aortic stenosis. Mild AR.
Subjective Dataa
Subjective Data
Date of Service:
Date of Service: March 26, 2025
Chief Complaint: Circulation Manager Follow Up and Pulmonary Follow Up
Subjective:
Patient seen and evaluated this morning. Extubated yesterday. Not tolerating HD due to tachypnea + tachycardia with HR in 130-140s. Currently on face mask FiO2 60%, BP 99/48 with BP via A-line 109/47, and SpO2 94%. Lauro at 120mcg/min. No
nosebleed seen and he is not coughing up blood. Too SOB and hypoxic to start diet.
Review of Systems
General: Other (Negative unless mentioned above)
Objective Data
Data Reviewed
Vital Signs / I&O / Oxygen:
Vital Signs
Temp Pulse Resp BP Pulse Ox
97.5 F 135 27 99/53 94
03/26/25 07:00 03/26/25 09:45 03/26/25 09:45 03/26/25 08:36 03/26/25 09:45
Intake and Output
03/25/25 03/26/25 03/27/25
06:59 06:59 06:59
Intake Total 813.1 / 820.1 390.2 / 390.2 103 / 103
Output Total 400 / 400 600 / 600 210 / 210
Balance 413.1 / 420.1 -209.8 / -209.8 -107 / -107
SaO2 [ASV] 98
SaO2 [A/C] 96
SaO2 [NIV (Non Invasive 97
Ventilation)]
SaO2 94
Nasal Cannula flow liters per 12
minute
Physical Exam
General: Respiratory Distress (mild (during HD)), Chills (negative) and Sweats (negative)
HEENT: Normocephalic and Anicteric
Cardiovascular: Irregular Rhythm (Irregularly irregular), Peripheral Edema (negative) and Other (Tachycardic)
Respiratory: Wheeze (n), Crackles (Bilateral (L >R)), Rhonchi (n), Non-Labored Respirations, Stridor (n) and Other (Bubbling in right hemithorax)
GI: Soft, Non Distended, Non Tender and Normal Bowel Sounds
Neurology: Tremors (negative) and Lethargic (Awakens to verbal stimuli and following commands/answering questions appropriately)
Skin: Warm, Dry, Cyanosis (n), Jaundice (n) and Rash (n)
Labs/Micro/Reports
Lab Data
03/26/25 03:21
03/26/25 03:21
Laboratory Results
03/25/25 03/26/25
13:01 03:21
pH 7.41 7.38
pCO2 31 L 31 L
pO2 110 H 87
HCO3 19.6 L 18.3 L
O2 Delivery Level 40
Microbiology
03/20/25 05:07 Blood/Venous Blood Culture - Final
No Growth - Final Report
03/20/25 05:34 Blood/Venous Blood Culture - Final
No Growth - Final Report
[2025-03-26] MEDS: RETACRIT 10000 UNITS IV (08:40)
[2025-03-26] MEDS: MANNITOL 25% 12.5 GRAMS IV ×2 (08:41→10:05)
[2025-03-26] MEDS: FLEXBUMIN 25% FOR HEMODIALYSIS 12.5 GRAMS IV ×2 (08:41→10:05)
[2025-03-26] MEDS: NEO-SYNEPHRINE 250 IV (08:55)
[2025-03-26 08:56] LABS: Iron 36 ug/dl (49-181)
[2025-03-26 09:05] LABS: Total Iron Binding Capacity 165 ug/dl (261-462)
--- NOTE | 2025-03-26 09:06 | PTCARENOTE ---
Vitals unstable during HD. Outreach Counselor notified. Lauro gtt initiated through [facility] PICC. Titrating for MAP>65.
--- NOTE | 2025-03-26 09:23 | PTCARENOTE ---
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 Amio bolus ordered.
[2025-03-26] MEDS: CORDARONE 103 MG IV (09:29)
[2025-03-26] MEDS: BACTROBAN 2% OINTMENT 1 APPLIC NASAL ×2 (09:50→20:39)
--- NOTE | 2025-03-26 10:02 | W.PN.ID1 ---
Addendum entered and electronically signed by Tabitha Marroquin MD 03/26/25 14:32:
chart reviewed, pressors weaned significantly from a peak of phenylephrine 120 mcg/min to 60 mcg/min this afternoon
Original Note:
Date of Service
Date of Service: March 26, 2025
Today's Communication
had increasing pressor requirements while on HD, will reassess this afternoon
Assessment / Plan
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
# Klebsiella bacteremia - source
# Transplant kidney pyelonephritis with Klebsiella and E. faecalis
# Obstructive uropathy of transplant kidney, esteves placed 03/15
# Fever - resolved
# Leukocytosis resolved; L shift overall decreasing
# Shock
- increasing pressor requirements from 9-10 AM while on HD - will reassess this afternoon
-03/20 Repeat bcx's negative
-03/18 Ucx: Klebsiella and Enterococcus
-Continue Unasyn 3g IV q24H (d7)
# Acute hypoxemic respiratory failure - intubated 03/21; extubated 03/25
- Pulm edema superimposed on chronic inflammatory interstitial pneumonitis.
- On steroid
# ELIZABETH on CKD - HD started 03/20
# Hypotension during HD weaning pressor
# Epistaxis, gross hematuria
- Eliquis on hold
Pt remains critically ill in ICU.
# Conditions present on admission
donor renal transplant on mycophenolate, belatacept, prednisone 2.5 twice daily 2018
Atrial fibrillation
Post-COVID chronic inflammatory interstitial pneumonitis
Hypertension
BPH
Postherpetic neuralgia
Chronic back pain
Chief Complaint
-: UTI
Subjective / Review of Systems
mild hypothermia this AM
patient was hypotensive during HD and kartik was started through PICC line
extubated yesterday to nonrebreather now on 10L at 60%
moaning but responding appropriately to questions
coughing up some blood tinged fluid
minimal mixed urine and blood output in the esteves
no: headaches, sinus tenderness, abdominal pain, pain over the transplant kidney, pain over IVs, new joint pains, new rashes
seen on HD
Vital Signs / Physical Exam
Vital Signs
Vital Signs
Temp Pulse Resp BP Pulse Ox
97.5 F 135 27 99/53 94
03/26/25 07:00 03/26/25 09:45 03/26/25 09:45 03/26/25 08:36 03/26/25 09:45
Physical Exam
Constitutional: No Acute Distress and Acutely Ill
Cardiovascular: Regular Rate and S1/S2; Negative Murmur or Rub
Pulmonary: Clear and Symmetric; Negative Wheezes or Rales
Gastrointestinal: Soft, Non Tender, Non Distended and Normal Bowel Sounds
Skin: Warm and Dry; Negative Rash or Jaundice
Physical Exam:
briana, PICC, HD cath, PIV - all no erythema, tenderness or drainage
Objective Data
Lab Data
Lab Results
03/26/25 03:21
03/26/25 03:21
PT 17.8 Sec (11.4-14.6) H 03/24/25 04:05
INR 1.44 03/24/25 04:05
APTT 26.8 Sec (23.4-35.0) 03/24/25 04:05
Estimated Creat Clear 14 ml/min 03/26/25 03:21
Lactic Acid 1.2 mmol/L (0.7-2.0) 03/19/25 23:40
Total Bilirubin 3.4 mg/dl (0.2-1.3) H 03/23/25 03:38
AST 38 U/L (17-59) 03/23/25 03:38
ALT 79 U/L (0-50) H 03/23/25 03:38
Alkaline Phosphatase 54 U/L (38-126) 03/23/25 03:38
C-Reactive Protein > 270.00 mg/L (0.0-10.00) H 03/19/25 23:40
Most recent labs reviewed.
Micro Results:
03/20/25 05:07 Blood Culture - Final
Blood/Venous No Growth - Final Report
03/20/25 05:34 Blood Culture - Final
Blood/Venous No Growth - Final Report
03/18/25 18:13 Urine Culture - Final
Urine Klebsiella pneumoniae
Enterococcus faecalis
03/18/25 17:02 Blood Culture - Final
Blood/Venous Klebsiella pneumoniae
Gram Stain - Final
03/18/25 17:01 Blood Culture - Final
Blood/Venous Klebsiella pneumoniae
Gram Stain - Final
03/18/25 23:17 MRSA Screen - Final
Nose No Methicillin Resistant Staphylococcus aureus isolated.
03/18/25 17:03 Influenza Types A & B (NOLVIA) - Final
Nasal Swab Negative for Influenza A & B, NAAT
Negative results must be combined with clinical observations
and patient history.
Nucleic Acid Amplification test (NAAT)performed on the
[employer] platform.
Urine Culture Final 03/22/25-1411
CC: Greater than 100,000 CFU/ML Klebsiella pneumoniae
CC: Greater than 100,000 CFU/ML Enterococcus faecalis
Organism 1 Klebsiella pneumoniae
Organism 2 Enterococcus faecalis
K.PNEUMO ENTFCL
M.I.C. RX M.I.C. RX
--------- --- --------- ---
Amoxicillin/Potas. Clavulanate <=8/4 S
Ampicillin >16 R <=2 S
Ampicillin/Sulbactam 8/4 S
Aztreonam <=4 S
Cefazolin <=2 S
Ertapenem <=0.5 S
Ciprofloxacin <=0.25 S
Gentamicin <=2 S
Gentamicin Synergy Screen <=500 S
Levofloxacin <=1 S
Meropenem <=1 S
Nitrofurantoin-Urine Only 64 I <=32 S
Piperacillin/Tazobactam <=8 S
Tetracycline <=4 S <=4 S
Tobramycin <=2 S
Trimethoprim/Sulfamethoxazole <=2/38 S
Vancomycin 2 S
03/20/25 CXR: Grossly stable severe diffuse bilateral interstitial and airspace disease which may reflect combination of pulmonary edema and pneumonia. Cannot rule out component of underlying chronic interstitial lung disease.
03/19/25 CXR: Progressive parenchymal disease process, as described. Differential includes progressive congestive heart failure with pulmonary edema versus diffuse bilateral pneumonia, right greater than left.
03/18/25 CT a/p: Severe acute edema and inflammation around the right lower quadrant renal transplant which is new from 12/17/2024. Severe hydronephrosis of the right intrarenal collecting system and right renal pelvis which has increased. ACUTE
PYELONEPHRITIS of the RIGHT LOWER QUADRANT RENAL TRANSPLANT is considered most likely. Acute infarction of the renal transplant is a less likely diagnostic possibility. Severe diffuse urinary bladder wall thickening with surrounding perivesical
inflammation which appears new from 12/17/2024 suggesting SEVERE ACUTE CYSTITIS. Esteves catheter in the urinary bladder. Mildly enlarged prostate gland.
--- NOTE | 2025-03-26 10:15 | W.PN.NEPH.PH ---
Today's Communication / Plan
-
see plan
Assessment/Plan
-
This is a 79-year-old gentleman who follows in our office with Dr. Muhammad after donor renal transplant 2019 from [facility]. His transplant course has been complicated by development of nephrotic range proteinuria as well as recent
cellular rejection December of this year. The episodes treated with Solu-Medrol. His creatinine has risen quickly over time in the last several months. He has gone from a creatinine around 2 now up to 4.4. He was noted to have hydronephrosis of
the transplanted kidney recently on ultrasound as well as CT scan. Esteves catheter was placed by urology a few days ago. His appetite has been poor as of late. Recently he also developed fever and malaise and this has brought him to the emergency
room. He was noted to be febrile in the ER. Blood pressure was stable though lower than his home readings of 132. He was 100 systolic in the ER. Creatinine was 4.7 with elevated lactate level and elevated white count. CT of the abdomen and
pelvis were performed with suspicion for pyelonephritis of the transplant. We are asked to assist in management of his renal issues.
Assessment
Sepsis syndrome, possible pyelonephritis
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
donor renal transplant with FSGS, recent T-cell rejection
Obstructive uropathy, Esteves catheter in place
ELIZABETH..
Anemia
Hyponatremia
lactic acidosis
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
Plan
ELIZABETH-progressive in setting of sepsis
now on HD, improving UOP however cr increasing
no renal recovery noted so would cont HD
pressors to keep MAP >65 during HD
With sepsis ongoing despite negative cultures surveillance will hold mycophenolate but continue iV solucortef
mild hematuria with esteves-monitor
extubated on 03/25 however on 10lit of O2, has underlying interstitial lung disease
abx per ID
dose meds renally
recent epistaxis managed by ENT, h/h stable
Dr. Muhammad who has reached out to his on 03/25 and reviewed the case in detail
plan to monitor him for now
d/w nursing
CC time spent 40min
-
-
Date of Service: March 26, 2025
CC / HPI / ROS
-
Chief Complaint:
Sepsis
History of Present Illness:
Acute kidney injury multifactorial obstructive uropathy, sepsis
remains on pressors for hypotension during HD, otherwise was off
extubated 03/25, on venti mask 10lit
hb low 8.1 stable, 1 PRBC on 03/22, plt low at 76-improving
Review of Systems:
non oliguric with esteves
no fever, limited communication with sob and tachy during visit
Agitated
Labs
-
Labs:
WBC 10.0 10^3/uL (4.8-10.8) 03/26/25 03:21
RBC 2.71 10^6/uL (4.70-6.10) L 03/26/25 03:21
Hgb 8.2 g/dL (13.0-18.0) L 03/26/25 03:21
Hct 25.5 % (39.0-52.0) L 03/26/25 03:21
Plt Count 76 10^3/uL (130-400) L 03/26/25 03:21
Sodium 134 mmol/L (135-145) L 03/26/25 03:21
Potassium 4.2 mmol/L (3.5-5.1) 03/26/25 03:21
Chloride 102 mmol/L (98-107) 03/26/25 03:21
Carbon Dioxide 20 mmol/L (22-30) L 03/26/25 03:21
BUN 119 mg/dl (9-20) H* 03/26/25 03:21
Creatinine 4.3 mg/dL (0.7-1.3) H* 03/26/25 03:21
eGFR 13.30 03/26/25 03:21
Glucose 117 mg/dl (70-99) H 03/26/25 03:21
Calcium 8.2 mg/dl (8.4-10.2) L 03/26/25 03:21
Phosphorus 7.2 mg/dl (2.5-4.5) H 03/23/25 03:38
Ebu-H-Tklrkktbras Pept 32667 pg/ml 03/26/25 03:21
Albumin 2.7 g/dl (3.5-5.0) L 03/23/25 03:38
Physical Exam
-
Vital Signs:
Vital Signs
Temp Pulse Resp BP Pulse Ox
97.5 F 123 27 123/50 91
03/26/25 07:00 03/26/25 11:15 03/26/25 11:15 03/26/25 10:27 03/26/25 11:31
Cardiovascular:: Irregular rate and rhythm
Respiratory:: Bilateral: Rhonchi
Lung Excursion:: Abnormal
Abdomen:: Nontender and Soft
Extremity Edema:: None: Bilateral:
Esteves Catheter: Yes
--- NOTE | 2025-03-26 10:30 | PTCARENOTE ---
HR remains elevated in the 120-150's s/p Amio bolus. Plan discussed during rounds. RN advised by Reinspector to administer IV Lopressor as ordered and maintain bp support with Lauro.
[2025-03-26] MEDS: NEO-SYNEPHRINE 1% 260 MG IV (10:51)
[2025-03-26] MEDS: UNASYN IV (11:31)
--- NOTE | 2025-03-26 11:35 | CM ---
F/U: Patient extubated, but still needs non-rebreather mask. Patient did not tolerate HD today, now needs pressors. PLAN: TBD.
--- NOTE | 2025-03-26 11:35 | PTCARENOTE ---
Pulse ox down to 84%. Patient coughing but unable to bring anything up. Repositioned in bed. Aerosol mask increased to 14L 80%. Pulse ox slow to recover; currently 92%. 1x dose of 1mg Morphine ordered.
--- NOTE | 2025-03-26 11:44 | W.PN.NEPH.HD ---
Assessment
-
pt seen during HD
on kartik for hypotension also tachy
UF is limited due to hemodynamics, will try to keep EDW low
If deemed to be HD next week-will need to change line, flows decreasing today
Progress Note - Hemodialysis
-
Date of Service: March 26, 2025
Duration: 30 minutes and 3 hours
Potassium Bath: 3
Calcium Bath: 2.5
Opti-Dialyzer: 160
Ultrafiltration: Other (1.5-2kg)
Blood Flow: 400
Dialysate Flow: 600
Heparin: no
EPO: [id number]
[2025-03-26] MEDS: MORPHINE SULFATE 1 MG IV (11:48)
--- NOTE | 2025-03-26 12:06 | PTCARENOTE ---
Cough worsening. Frequent and harsh. Unable to clear secretions. RT at bedside to suction patient. Large amount of thick, bloody secretions suctioned. Coughing resolved. Superintendent Meter Tests aware. Patient washed and repositioned for comfort. Systems
reviewed. Patient increasingly restless/agitated during HD; resolved. Resting calmly. Afib/aflutter; 110-120's. Weaning Lauro as tolerated. Scattered crackles auscultated. Urine output decreased. No other changes from previous assessment.
--- NOTE | 2025-03-26 12:15 | W.PN.HOSP.TC ---
Today's Communication/Plan
-
Monitor vitals
see plan
Now back on pressors
HD per nephrology
Wean oxygen as tolerated
Prognosis appears guarded, wants to remain full code
cw abx
Assessment / Plan
Assessment / Plan
General: No Apparent Distress
HEENT: NormoCephalic, Moist mucous membranes,nose bleed with packing
Respiratory: Rhonchi's, ETT tube noted, R chest wall HD catheter noted
Cardiac: S1/S2, Regular Rhythm and Murmur (3 out of 6 systolic murmur)
GI: Soft, Non Tender, Non Distended and Normal Bowel Sounds;
Rectal: Deferred by Provider
-esteves
Skin: No Rash
Neuro: Sedated
79-year-old with history of end-stage renal disease status post kidney transplant 2018 on antirejection medications, hypertension, hyperlipidemia, atrial fibrillation on , urinary retention status post catheter placement on Saturday presenting
to the emergency department with fever and chills as well as weakness. CT scan consistent with transplant pyelonephritis. He still has persistent hydro which likely reflects chronic hydro compared to his prior ultrasound. Known anemia. Picture
consistent with pyelonephritis with bandemia and lactic acidemia consistent with sepsis.
PLAN:
Acute hypoxic respiratory failure likely Multifactorial secondary to pulmonary edema versus pneumonia versus interstitial lung disease
Status post intubation and on mechanical ventilation. S/p extubation 03/25. Still hypoxic and is on nonrebreather. Discussed with patient and he wants to be full code. Director Of Sales also discussed with patient and family and they wanted to be full
code.
On IV steroid, Weaning
-wean sedation/sbt as tolerated
-Already on antibiotics.
-Repeat echo 03/23 with severe , normal EF
-Director Of Sales following
Sepsis shock associated with acute kidney injury, lactic acidosis secondary to Klebsiella bacteremia likely secondary to urinary tract infection
suspected acute pulm edema
- Status post 30 mL/kg crystalloid in ED
- Blood cultures with Klebsiella identification noted. Urine culture also positive for Klebsiella. Repeat surveillance cultures negative so far
- Status post IV cefepime. Now on IV Unasyn.
- some component of shock could be related to sedation.Currently on phenylephrine, wean as tolerated. went hypotensive and tachycardic with HD
- ID following
nephrology rec to hold celcept for now
Epistaxis
Evaluated by ENT, status post left NC packing. now removed. Appears deviated septum per ENT. Monitor
Toxic metabolic encephalopathy likely secondary to shock versus ICU delirium versus hypoxemia versus uremia
appears to be improving when off sedation
Hydronephrosis - Resolving, cannot rule out post obstructive polyuria. Catheter placed by Dr. Jim as outpatient.
- maintain urinary catheter for now
- patient denies any alpha blockade but considering TURP
- monitor i/os
- f/u u/s after tx of elizabeth
- continue cardura with hold parameters when able
ELIZABETH only- Persistent ELIZABETH despite Esteves placement. Recent Treatment for rejection in December.
Metabolic acidosis
- Status post IV fluids with bicarbonate.
- Status post diuretics
- avoid nephrotoxins and renal dose medications
- Patient started on dialysis on 03/20/2025. cw HD per nephrology
- Volume removal should help with hypoxemia.
donor renal transplant 2019 from [facility]
- cellcept on hold per nephrology. On IV steroids
now on HD
Anemia - Macrocytic anemia, recent normal sats but given IV iron infusion without improvement. Denies melena. Colonoscopy November ->single non-bleeding colonic angioectasia and internal hemorrhoids. On eliquis.
- Ferritin level elevated. Hemoglobin Now 8.2. Received blood transfusion this hospitalization
- type and screen and trend H&H for now
- Transfuse hgb <7
Eliquis on hold
Thrombocytopenia likely secondary to septic shock
-Continue to trend platelets.
AFIB Permanent
- holding eliquis . BB held with shock.
Elevated heart rate today, continue to monitor.
DVT PPX - SCD's
Code status - Full Code
Remains critically ill.
Total Critical Care Time 42 minutes. I was immediately available to the patient and staff. I personally examined, reviewed labs, diagnostic images/reports, interpretations, treatment plans, discussed patient care with other providers and family
or caregivers (if patient is unable to make decisions), entered orders as appropriate and documented the medical record.
Anticipated Discharge: > 48 hours
Subjective/Interval History
-
Date of Service: March 26, 2025
denies pain
Objective Data
-
Labs:
Laboratory Results
03/26/25
03:21
WBC 10.0
Hgb 8.2 L
Hct 25.5 L
Plt Count 76 L
HCO3 18.3 L
Sodium 134 L
Potassium 4.2
Chloride 102
Carbon Dioxide 20 L
BUN 119 H*
Creatinine 4.3 H*
Glucose 117 H
Calcium 8.2 L
Vital Signs:
Vital Signs
Temp Pulse Resp BP Pulse Ox
98.2 F 132 37 126/77 97
03/26/25 11:47 03/26/25 12:00 03/26/25 12:00 03/26/25 12:00 03/26/25 12:00
I&O
03/25/25 03/26/25 03/27/25
06:59 06:59 06:59
Intake Total 813.1 / 820.1 390.2 / 390.2 223 / 223
Output Total 400 / 400 600 / 600 210 / 210
Balance 413.1 / 420.1 -209.8 / -209.8
--- NOTE | 2025-03-26 14:34 | PTCARENOTE ---
Patient frequently pulling off aerosol mask. Pulse ox down to mid 80's. Attempted to transition to midflow nasal cannula with RT. Titrated up to 15L; pulse ox sustained in the 80's. Patient placed back on aerosol mask. Educated on importance of
keeping the mask on.
--- NOTE | 2025-03-26 15:13 | PTCARENOTE ---
DHT placed by ENT. Awaiting xray confirmation.
--- NOTE | 2025-03-26 15:14 | W.PN.UPDATE ---
Update Note
Progress Note Update
Called to reevaluate the patient as he had return of blood to the oropharynx. this was suctioned out by the ICU team.
At time of my eval a few hours later, oral cavity and pharynx examined. No active bleeding seen. Talala/red frothy sputum seen and looks to be coming from lower airway or hypopharynx region. No new epistaxis or blood from nasopharynx. Afrin-soaked
gelfoam (dissolvable) placed in left NC.
DHT placed in right NC at request of ICU Attending given concern for deviated septum and substantial prior epistaxis. DHT placed lubricated in surgilube-afrin mixture. CXR showing placement into stomach. Will f/u formal Radiology read.
OK to apply saline sprays directly to dissolvable gauze.
--- NOTE | 2025-03-26 17:02 | PTCARENOTE ---
Lauro weaned off.
--- NOTE | 2025-03-26 18:12 | W.PN.UPDATE ---
Update Note
Progress Note Update
Revisit , hemodynamics better and off pressor
HD completed this am with 1.5kg off
despite UF no improvement in O2 requirement
He is 8kg down since admit , CXR shows interstitial marking and bilat alveolar opacification
suspect vol has been optimized currently
If he needs more vol off need CRRT
will review with pulm tomorrow
d/w and daughter in detail
--- NOTE | 2025-03-26 21:00 | PTCARENOTE ---
assumed care, Ox3 forgetful @ x's, [place], [place], c/o 12/20 rectal pain from spasms that comes and goes, Afib Afluter c pvcs, weak pedals, L rad A-line zeroed, BP elevated DUMP OPERATOR notified Q6 Lopressor given early per DUMP OPERATOR, Lungs diminished and coarse, Aerosol
mask 60% 10L sats 95%, BSx4, incontinent stool, R nare DHT 65cm, Chronic esteves c maroon bloody output, skin per worklist, 20G RAC, L DL PICC, RIJ HD cath, bed alarm applied, call tao within reach, CHG bath, otherwise refer to documentation.
[2025-03-26] MEDS: MELATONIN 5 MG PO (21:07)
[2025-03-26] MEDS: VALIUM INJECTION 5 MG IV (23:14)
--- NOTE | 2025-03-27 00:15 | PTCARENOTE ---
systems reviewed, BP remains elevated in the 70's MAINTENANCE SERVICE DISPATCHER notified, Valium given per order for rectal spasms, otherwise refer to documentation.
[2025-03-27] MEDS: VALIUM INJECTION 5 MG IV ×3 (01:44→19:21)
[2025-03-27] MEDS: LOPRESSOR 2.5 MG IV ×3 (03:20→15:09)
[2025-03-27 03:37] LABS: Hematocrit 25.5 % (39.0-52.0); Hemoglobin 8.4 g/dL (13.0-18.0); Mean Corp Hgb Conc. 32.9 g/dL (33.0-37.0); Mean Corpuscular Volume 93.8 fL (80.0-94.0); Platelet Count 117 10^3/uL (130-400); Red Cell Dist. Width 14.5 % (11.5-14.5)
[2025-03-27 03:42] VITALS: BMI 21.2
[2025-03-27 04:06] LABS: Blood Urea Nitrogen 84 mg/dl (9-20); Calcium 8.1 mg/dl (8.4-10.2); Carbon Dioxide 21 mmol/L (22-30); Chloride 101 mmol/L (98-107); Estimated Creatinine Clearance 17 ml/min; Glucose 102 mg/dl (70-99); Potassium 4.0 mmol/L (3.5-5.1); Sodium 135 mmol/L (135-145); Triglycerides 220 mg/dl (10-149); eGFR 17.03
--- NOTE | 2025-03-27 04:16 | PTCARENOTE ---
systems reviewed, labs sent, weight obtained, otherwise refer to documentation,
[2025-03-27 04:31] LABS: Absolute Neutrophils -Man Diff 10.6 10^3/uL (1.4-6.5); Platelets Checked Yes
[2025-03-27 04:32] LABS: Macrocytosis 1+; Normal RBC Morphology No; Polychromasia 1+
[2025-03-27 05:21] LABS: Total Cells Counted 100
[2025-03-27] MEDS: SOLU-CORTEF 25 MG IV (08:00)
[2025-03-27] MEDS: NSS (PRESERVATIVE FREE) 10 ML IV (08:00)
[2025-03-27] MEDS: PROTONIX IV 40 MG IV (08:00)
[2025-03-27] MEDS: BACTROBAN 2% OINTMENT 1 APPLIC NASAL ×2 (08:01→19:21)
--- NOTE | 2025-03-27 08:27 | W.PN.INTV ---
Today's Communication / Plan
Recommendations
Extubated 03/25, now on aerosol mask at FiO2 60%
Unfortunately he is not tolerating HD; may need to consider CRRT versus a slower HD session to see if this is better for him hemodynamically and clinically
Otherwise he will continue with HD on MWF
Antibiotics
If labs tomorrow show high inflammatory markers and there is more concern for pneumonitis on his CT Chest instead of volume overload, then will restart high dose steroids
For now, hydrocortisone will continue to be weaned with resumption of his home prednisone tomorrow (as of now)
If there does appear to be a question of if volume overload is present or not, then he would benefit from right heart cath
Rapid Rhino in left nare removed on 03/26 via ENT
Start trickle rate TF today
No longer needing Precedex
Keep MAP >65
Bowel regimen
Hold Eliquis in setting of epistaxis and downtrending Hb
Patient remains critically ill with guarded prognosis
Continue ICU level of care
Assessment
-
79-year-old male with a 1 pack year smoking history, hypertension, nephrolithiasis, pulmonary nodule, atrial fibrillation, and renal transplantation on mycophenolate and prednisone with recent ultrasound showing transplant hydronephrosis presented
with 2 days of fever found to be septic with ELIZABETH-dining room manager consulted for sepsis/shock/ELIZABETH 03/20/2025.
Septic shock due to UTI - shock state now resolved as of 03/26
Bacteremia-Klebsiella
ELIZABETH-BUN/creatinine-105/5.8 now on iHD
Epistaxis involving left nare s/p rapid Rhino via ENT - rapid rhino removed as of 03/26 - -> epistaxis resolved
Hydronephrosis in transplanted kidney
Acute hypoxic respiratory failure � intubated 03/21/2025; extubated 03/25/2025
Chronic severe inflammatory interstitial pneumonitis
Renal transplantation since 2018
Chronic immunosuppression
Anemia
Thrombocytopenia
Atrial fibrillation with rapid ventricular response
Leukocytosis
Hypocalcemia
Conditions present prior to admission:
End-stage renal disease status post renal transplantation-[facility] 2018-follows at [facility]-Dr. Hines and locally Dr. Muhammad
Permanent atrial fibrillation/Eliquis.
Hypertension.
BPH.
Postherpetic neuralgia.
Chronic back pain.
Pulmonary nodule right base with negative PET followed by Dr. Olivarez-next CT 02/2025.
Fatty liver.
Inguinal hernia
Osteoporosis.
Hernia repair.
Cataract 2020. Transplant kidney December 2018.
Plan
Patient remains critically ill, initially off vasopressors on AM of 03/26 at around 7 AM but then required Lauro again during HD. He is now off pressors again as of evening of 03/26
He does not appear to be tolerating HD due to tachypnea, agitation and tachycardia
Unclear if he is still volume overloaded or if the opacification seen on CXR is due to inflammatory pneumonitis
Obtain CT chest tomorrow AM to help differentiate between volume overload versus pneumonitis
Trend BNP, CRP, ESR
He was extubated on 03/25, however he remains hypoxic. Currently on an aerosol mask at 60% FiO2, saturating 93-94% he is also hypoxic. Unable to use modality with high positive airway pressure given his recent nosebleed and now with a right sided
nare NGT (assisted with placement via ENT on 03/26)
- Titrate FiO2 to maintain SpO2 >90-94%
- Given his epistaxis with globs of blood seen in the back of oropharynx in the last 1-2 days, would avoid significant positive airway pressure with BiPAP and/or high-flow nasal cannula
- Continue with aerosol mask for now, weaning down to mid flow nasal cannula as tolerated
- Continue aspiration precautions; keep HOB >30-45�
- prn nebulized bronchodilators - not currently bronchospastic
- Oral and NT-suctioning as needed as he does have a wet sounding cough but is not bringing up anything
- Remains low threshold to re-intubate
CXR on 03/23/2025 showed improvement with degree of pulmonary/interstitial edema, and his FiO2 requirements also improved from FiO2 50% to 40%.
Repeat CXR from 03/25 showed continued interstitial edema, however unclear if he is having alternative explanation like inflammatory pneumonitis, alyson in setting of ILD (?flare)
Follows Dr. Olivarez for pulmonary nodule and possible interstitial lung disease-ILD serology negative-radiographs appear to have severe interstitial pneumonitis
Patient was on mycophenolate - -> DC'd per Nephro on 03/25
Interstitial lung disease serology unrevealing
High-dose steroids were initiated as oxygenation had not improved and not felt to be entirely fluid overload related-trialing hemodialysis for fluid removal-had been on prednisone 2.5 mg twice daily
I transitioned from Solu-Medrol to hydrocortisone and will ultimately wean back to his home dose of prednisone tomorrow; if labs tomorrow show high inflammatory markers and there is more concern for pneumonitis on his CT Chest instead of volume
overload, then will restart high dose steroids
Cultures reviewed
Blood cultures 03/18/2025-initial positive Klebsiella and subsequent blood cultures negative
MRSA screen negative
Urine culture-Klebsiella and Enterococcus
Influenza negative
Empiric antibiotics-on Unasyn
Infectious disease consultation noted-correspondence reviewed
Trend WBC and monitor temperature curve
Nephrology on board
Hemodialysis as tolerated; may need a slower rate of HD or even may consider CRRT to see if he tolerates this better - Dr. Muhammad agrees with this
Trialed levophed on 03/22 but overnight on 03/22 - 03/23 he developed ectopy, hence he was changed back to lauro. He had been off Lauro-Synephrine as of morning of 03/25, but now required it again during HD due to hypotension; now off again as of
evening of 03/26; keep MAP >65
[address] line in place
Patient has been off vasopressin as of morning of 03/23
Replete calcium levels
Defer repletion of electrolytes to nephrology with HD
Lactate normalized as of 03/19/2025 and no longer need to continue trending at this time
Patient was transfused 1 unit PRBC on AM of 03/22; he also was transfused 1 unit PRBC on 03/19 as well as 1 unit on 03/20
Last transfusion was given on evening of 03/23 after his nosebleed
ENT is on board and on AM of 03/24 the left nasal packing was replaced with a single rapid Rhino with 8 cc of air, and the right nare packing was removed and left unpacked. Now as of 03/26, the left sided rapid Rhino has been removed. ENT assisted
with placement of NGT (Dobbhoff tube) into the right nare. Currently there is no evidence of epistaxis or hemoptysis.
Given the above events, continue to hold Eliquis. I believe that his prior coffee-ground emesis that he had on 03/23 was due to nosebleed - highly unlikely GI bleed at this time. He continues to not have any bloody stool
Continue PPI 40mg
Continue trending Hb
Maintain Hb >7-8 g/dL, and keep platelets >50k
DVT prophylaxis: SCDs
Stress ulcer prophylaxis with PPI
Early nutrition if possible - start trickle rate tube feeds now
Prognosis unfortunately poor with multiorgan dysfunction-goals of care discussion reviewed on 03/23 with the patient's daughters and with Dr. Genao; they understand that he is critically ill but they would like to continue full medical
management for now and are not interested in withdrawal care. As of 03/24, given that his mental status has improved, I recommend to continue with full aggressive management considering that he is improving.
Unfortunately as of 03/25, he continues to be hypoxic and severely deconditioned after extubation. Goals of care discussion held with the and daughter on 03/25. They would like to continue with full medical care, as the feels that this
is what Johann would have wanted. I also discussed this goals of care with the patient himself and he says to 'do what ever is needed' at this time.
The patient last saw Dr. Olivarez 03/08/2025 for ILD, restrictive lung disease and pulmonary nodule-has appointment for PFT 04/28/2025 at [address] appointment [address] Olivarez 04/29/2025 at 11:15 AM
Critical care statement: A total of 38 minutes of critical care time was provided for this patient today. This includes management of unstable vital signs, evaluation of the patient at bedside, reviewing the patient's pertinent medical records
including radiographs, microbiology, laboratory evaluations, and discussion with primary team, consultants, pharmacy, nutrition, physical therapy, case management, charge nurse, critical care nursing, and respiratory therapy.
Office note Dr. Olivarez 03/08/2025 in regards to pulmonary nodule:
CT imaging August 2024 revealed approximately 1.3 cm nodular opacity in the right base, not present on previous exam.
Underwent a repeat CT in November 2024 Showed resolution of previously seen right basilar nodule but a new 1.4 cm nodule in the right lower lobe.
Underwent a PET scan 12/17/2024 which showed evolution of right lower lobe nodule, now presenting as large ground glass nodule measuring up to 3.9 cm. Highly suggestive of benign infectious/inflammatory process.
Repeat CT 02/2025: now demonstrate bilateral peribronchiolar ground glass infiltrate bilaterally.Unclear etiology, differential Dx includes inflammatory/infectious process vs pulmonary edema.there is evidence of small bilateral pleural effusions,
with history of aortic stenosis pulmonary edema except possibility.With ongoind immunosupresion will need to keep in my oportunistic infection.
Will obtain ILD serology, proBNP and inflmmatory markers.
Bronchoscopy with BAL may be required-if there is no evidence of volume overload.-Of note He was treated with an antibiotic and steroids middle of October 2024. He denies any active Symptoms suggesting infection.If He does produce any phlegm, we will
submit sputum culture
Diagnostic data:
Chest x-ray 03/18/2025-severe chronic inflammatory interstitial pneumonitis
CT abdomen and pelvis 03/18/2025-severe acute edema and inflammation around right lower quadrant renal transplantation, severe hydronephrosis, severe bilateral atrophic [place] kidneys, small bilateral pleural effusions, increased coarse interstitial
markings throughout both lower lobes, right middle lobe with severe chronic inflammatory interstitial pneumonitis
ILD serology 03/10/2025-negative rheumatoid factor, ROXANNE, SSA antibodies, scleroderma antibody, proteinase [address] chest 02/23/2025 Reviewed Uriel Leong 03/08/2025 06:25:26 AM EDT >1. Resolution of previously seen right lower lobe 1.4 cm nodule.2. Mild to moderate changes of pulmonary fibrosis as seen previously.3. Superimposed upon the changes of
fibrosis, there is new large amount of bilateralperibronchovascular interstitial and groundglass opacity with small amount of bilateral upper lungairspace consolidation as detailed above. There are very small bilateral pleural effusions. Whileedema
is a differential consideration, findings are more suggestive of a superimposed infectious orinflammatory process. There is associated mild mediastinal adenopathy.-
PET CT 12/17/2024 reviewed: Uriel Leong 03/08/2025 06:25:44 AM EDT >The previously seen solid right lower lobe nodule has evolved/changed in morphology, nowpresenting as a large groundglass nodule measuring up to 3.9 cm which demonstrates
max SUV 4.7(delayed 5.4). Otherwise, no suspicious FDG avid lesions.ABDOMEN and PELVIS:No suspicious FDG-avid lesions.SKELETON:No suspicious FDG-avid lesions.This suggests inflammatory process.-
CT chest 2023: Reviewed Uriel Leong 07/05/2023 08:49:26 AM >1. No significant acute abnormality identified in the chest within the limits of unenhanced CT, asdescribed above. Probable residual fibrotic changes in the lungs, less
likely active pneumonitis.-
CT chest 02/27/2023: Reviewed Uriel Leong 03/06/2023 08:42:39 AM >There has been significant further improvement in the patient's bilateral parenchymal airspacedisease when compared with the previous examinations.Currently, there is mild
left and moderate diffuse coarsening of the interstitial markingsthroughout both lungs which at this point may be residual scarring/fibrosis rather than acuteinflammatory disease.There is mild cardiomegalyThere is atherosclerosis-
CT chest 11/23/2022: showed evidence of postinflammatory fibrosis. Groundglass opacities have resolved..
Pulmonary function testing ( 07/13/2024� ):FEV1: 3.4 L-107%FVC:3.96 L-89%FEV1/FVC ratio:86%T.52 L-73%RV:44%ERV:RV/TLC ratio:23%DLCO: 13.69-50%DLCO/VA: 70%
Echo 05/19/24: Normal biventricular size and function. EF 65%. Severely dilated LA. Paradoxical low flow low gradient aortic stenosis. Mild AR.
Subjective Dataa
Subjective Data
Date of Service:
Date of Service: March 27, 2025
Chief Complaint: Computer Technician Follow Up and Pulmonary Follow Up
Subjective:
Patient was seen this morning. He is sleepy but easily arousable, speaking to me without significant shortness of breath. Afebrile overnight. Currently on an aerosol mask at 60% FiO2, saturating 96% with BP via A-line: 133/58 and heart rate 109.
He currently denies chest pain, PARRY, nausea, fevers or chills. He mainly feels exhausted with low energy levels.
Review of Systems
General: Other (Negative unless mentioned above)
Objective Data
Data Reviewed
Vital Signs / I&O / Oxygen:
Vital Signs
Temp Pulse Resp BP Pulse Ox
97.6 F 105 28 166/66 94
03/27/25 07:36 03/27/25 10:00 03/27/25 10:00 03/27/25 03:20 03/27/25 10:00
Intake and Output
03/26/25 03/27/25 03/28/25
06:59 06:59 06:59
Intake Total 390.2 / 390.2 223 / 223
Output Total 600 / 600 420 / 420
Balance -209.8 / -209.8 -197 / -197
SaO2 [ASV] 98
SaO2 [A/C] 96
SaO2 [NIV (Non Invasive 97
Ventilation)]
SaO2 94
Nasal Cannula flow liters per 12
minute
Physical Exam
General: Respiratory Distress (negative), Comfortable, Chills (negative) and Sweats (negative)
HEENT: Normocephalic and Anicteric
Cardiovascular: Irregular Rhythm (Irregularly irregular), Peripheral Edema (negative) and Other (Tachycardic)
Respiratory: Wheeze (n), Crackles (Bilateral (L >R)), Rhonchi (n), Non-Labored Respirations, Stridor (n) and Other (Bubbling in right hemithorax)
GI: Soft, Non Distended, Non Tender and Normal Bowel Sounds
Neurology: Awake, Tremors (negative) and Other (Somnolent at times)
Skin: Warm, Dry, Cyanosis (n), Jaundice (n) and Rash (n)
Labs/Micro/Reports
Lab Data
03/27/25 03:27
03/27/25 03:27
Microbiology
03/20/25 05:07 Blood/Venous Blood Culture - Final
No Growth - Final Report
03/20/25 05:34 Blood/Venous Blood Culture - Final
No Growth - Final Report
--- NOTE | 2025-03-27 08:53 | W.PN.ID1 ---
Date of Service
Date of Service: March 27, 2025
Today's Communication
continue unasyn day 8
Assessment / Plan
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
# Klebsiella bacteremia - source
# Transplant kidney pyelonephritis with Klebsiella and E. faecalis
# Obstructive uropathy of transplant kidney, esteves placed 03/15
# Fever - resolved
# Leukocytosis; L shift overall decreasing
# Shock
- phenylephrine titrated off
-03/20 Repeat bcx's negative
-03/18 Ucx: Klebsiella and Enterococcus
-Continue Unasyn 3g IV q24H (d8)
# Acute hypoxemic respiratory failure - intubated 03/21; extubated 03/25
- Pulm edema superimposed on chronic inflammatory interstitial pneumonitis.
- On steroid
# ELIZABETH on CKD - HD started 03/20
# Hypotension during HD
# Epistaxis, gross hematuria
- Eliquis on hold
# Conditions present on admission
donor renal transplant on mycophenolate, belatacept, prednisone 2.5 twice daily 2018
Atrial fibrillation
Post-COVID chronic inflammatory interstitial pneumonitis
Hypertension
BPH
Postherpetic neuralgia
Chronic back pain
Chief Complaint
-: UTI
Subjective / Review of Systems
phenylephrine titrated off
remains afebrile, no further hypothermia
on aerosol mask
seen by ENT last night for bleeding from oropharynx, self resolved
DHT placed in the R NC
not responding to questions
Vital Signs / Physical Exam
Vital Signs
Vital Signs
Temp Pulse Resp BP Pulse Ox
97.6 F 102 28 166/66 94
03/27/25 07:36 03/27/25 06:00 03/27/25 06:00 03/27/25 03:20 03/27/25 06:00
Physical Exam
Constitutional: No Acute Distress
Cardiovascular: Regular Rate and S1/S2; Negative Murmur or Rub
Pulmonary: Clear and Symmetric; Negative Wheezes or Rales
Gastrointestinal: Soft, Non Tender, Non Distended and Normal Bowel Sounds
Skin: Warm and Dry; Negative Rash or Jaundice
Objective Data
Lab Data
Lab Results
03/27/25 03:27
03/27/25 03:27
PT 17.8 Sec (11.4-14.6) H 03/24/25 04:05
INR 1.44 03/24/25 04:05
APTT 26.8 Sec (23.4-35.0) 03/24/25 04:05
Estimated Creat Clear 17 ml/min 03/27/25 03:27
Lactic Acid 1.2 mmol/L (0.7-2.0) 03/19/25 23:40
Total Bilirubin 3.4 mg/dl (0.2-1.3) H 03/23/25 03:38
AST 38 U/L (17-59) 03/23/25 03:38
ALT 79 U/L (0-50) H 03/23/25 03:38
Alkaline Phosphatase 54 U/L (38-126) 03/23/25 03:38
C-Reactive Protein > 270.00 mg/L (0.0-10.00) H 03/19/25 23:40
Most recent labs reviewed.
Micro Results:
03/20/25 05:07 Blood Culture - Final
Blood/Venous No Growth - Final Report
03/20/25 05:34 Blood Culture - Final
Blood/Venous No Growth - Final Report
03/18/25 18:13 Urine Culture - Final
Urine Klebsiella pneumoniae
Enterococcus faecalis
03/18/25 17:02 Blood Culture - Final
Blood/Venous Klebsiella pneumoniae
Gram Stain - Final
03/18/25 17:01 Blood Culture - Final
Blood/Venous Klebsiella pneumoniae
Gram Stain - Final
03/18/25 23:17 MRSA Screen - Final
Nose No Methicillin Resistant Staphylococcus aureus isolated.
03/18/25 17:03 Influenza Types A & B (NOLVIA) - Final
Nasal Swab Negative for Influenza A & B, NAAT
Negative results must be combined with clinical observations
and patient history.
Nucleic Acid Amplification test (NAAT)performed on the
[employer] platform.
03/20/25 CXR: Grossly stable severe diffuse bilateral interstitial and airspace disease which may reflect combination of pulmonary edema and pneumonia. Cannot rule out component of underlying chronic interstitial lung disease.
03/19/25 CXR: Progressive parenchymal disease process, as described. Differential includes progressive congestive heart failure with pulmonary edema versus diffuse bilateral pneumonia, right greater than left.
03/18/25 CT a/p: Severe acute edema and inflammation around the right lower quadrant renal transplant which is new from 12/17/2024. Severe hydronephrosis of the right intrarenal collecting system and right renal pelvis which has increased. ACUTE
PYELONEPHRITIS of the RIGHT LOWER QUADRANT RENAL TRANSPLANT is considered most likely. Acute infarction of the renal transplant is a less likely diagnostic possibility. Severe diffuse urinary bladder wall thickening with surrounding perivesical
inflammation which appears new from 12/17/2024 suggesting SEVERE ACUTE CYSTITIS. Esteves catheter in the urinary bladder. Mildly enlarged prostate gland.
--- NOTE | 2025-03-27 11:27 | W.PN.NEPH.PH ---
Today's Communication / Plan
-
see plan
Assessment/Plan
-
This is a 79-year-old gentleman who follows in our office with Dr. Muhammad after donor renal transplant 2019 from [facility]. His transplant course has been complicated by development of nephrotic range proteinuria as well as recent
cellular rejection December of this year. The episodes treated with Solu-Medrol. His creatinine has risen quickly over time in the last several months. He has gone from a creatinine around 2 now up to 4.4. He was noted to have hydronephrosis of
the transplanted kidney recently on ultrasound as well as CT scan. Esteves catheter was placed by urology a few days ago. His appetite has been poor as of late. Recently he also developed fever and malaise and this has brought him to the emergency
room. He was noted to be febrile in the ER. Blood pressure was stable though lower than his home readings of 132. He was 100 systolic in the ER. Creatinine was 4.7 with elevated lactate level and elevated white count. CT of the abdomen and
pelvis were performed with suspicion for pyelonephritis of the transplant. We are asked to assist in management of his renal issues.
Assessment
Sepsis syndrome, possible pyelonephritis
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
donor renal transplant with FSGS, recent T-cell rejection
Obstructive uropathy, Esteves catheter in place
ELIZABETH..
Anemia
Hyponatremia
lactic acidosis
[place]-He had been making outpatient arrangements for eventual ESRD and transplant evaluation at [place]/previously on peritoneal dialysis prior to transfer
Plan
ELIZABETH-progressive in setting of sepsis
now on HD,variable UOP and cr increasing
no renal recovery noted so would cont HD
Bp stable off pressors
continue prednisone, off MMF
mild hematuria with esteves-monitor
remains on 10lit of O2, has underlying interstitial lung disease
volume off did not help much in resp status
case reviewed with pulm and likely get CT chest and +/- RHC later to assess vol status
abx per ID
dose meds renally
recent epistaxis managed by ENT, h/h stable
Dr. Muhammad who has reached out to his on 03/25 and reviewed the case in detail
plan to monitor him for now
d/w nursing and ICU
CC time spent 31min
-
-
Date of Service: March 27, 2025
CC / HPI / ROS
-
Chief Complaint:
Sepsis
History of Present Illness:
Acute kidney injury multifactorial obstructive uropathy, sepsis
remains on pressors for hypotension during HD, otherwise was off
extubated 03/25, on aero mask 10lit
hb low 8.4 stable, 1 PRBC on 03/22, plt low at 117-improving
Review of Systems:
oliguric with esteves
no fever, limited communication with O2 mask
Labs
-
Labs:
WBC 12.1 10^3/uL (4.8-10.8) H 03/27/25 03:27
RBC 2.72 10^6/uL (4.70-6.10) L 03/27/25 03:27
Hgb 8.4 g/dL (13.0-18.0) L 03/27/25 03:27
Hct 25.5 % (39.0-52.0) L 03/27/25 03:27
Plt Count 117 10^3/uL (130-400) L D 03/27/25 03:27
Sodium 135 mmol/L (135-145) 03/27/25 03:27
Potassium 4.0 mmol/L (3.5-5.1) 03/27/25 03:27
Chloride 101 mmol/L (98-107) 03/27/25 03:27
Carbon Dioxide 21 mmol/L (22-30) L 03/27/25 03:27
BUN 84 mg/dl (9-20) H 03/27/25 03:27
Creatinine 3.5 mg/dL (0.7-1.3) H 03/27/25 03:27
eGFR 17.03 03/27/25 03:27
Glucose 102 mg/dl (70-99) H 03/27/25 03:27
Calcium 8.1 mg/dl (8.4-10.2) L 03/27/25 03:27
Phosphorus 7.2 mg/dl (2.5-4.5) H 03/23/25 03:38
Goo-N-Fqzavqljunc Pept 25769 pg/ml 03/26/25 03:21
Albumin 2.7 g/dl (3.5-5.0) L 03/23/25 03:38
Physical Exam
-
Vital Signs:
Vital Signs
Temp Pulse Resp BP Pulse Ox
97.9 F 105 28 166/66 94
03/27/25 11:20 03/27/25 10:00 03/27/25 10:00 03/27/25 03:20 03/27/25 10:00
Cardiovascular:: Irregular rate and rhythm
Respiratory:: Bilateral: Coarse
Lung Excursion:: Abnormal
Abdomen:: Nontender and Soft
Extremity Edema:: None: Bilateral:
Esteves Catheter: Yes
--- NOTE | 2025-03-27 11:46 | PTCARENOTE ---
Rec'd pt at 0700. Pt drowsy but easily awakens to verbal stimuli. Follows simple commands. JEFFERSON with gen weakness. Monitor Afib. Lungs sct coarse/rales post, pox 95% on aerosol mask. DHT in place, clamped. Incont for loose/soft brown BM, pericare
performed. Disla draining sarah/bloody urine. Pt repositioned.
--- NOTE | 2025-03-27 13:09 | PTCARENOTE ---
Pt sleeping when undisturbed. No changes in assessment. Family updated via phone.
[2025-03-27] MEDS: UNASYN IV (13:27)
--- NOTE | 2025-03-27 13:48 | W.PN.HOSP.TC ---
Today's Communication/Plan
-
Assessment / Plan
Assessment / Plan
General: No Apparent Distress
HEENT: NormoCephalic, Moist mucous membranes,
Respiratory: Rhonchi's, on nr,b R chest wall HD catheter noted
Cardiac: S1/S2, Regular Rhythm and Murmur (3 out of 6 systolic murmur)
GI: Soft, Non Tender, Non Distended and Normal Bowel Sounds;
Rectal: Deferred by Provider
-esteevs
Skin: No Rash
Neuro: Sedated
79-year-old with history of end-stage renal disease status post kidney transplant 2018 on antirejection medications, hypertension, hyperlipidemia, atrial fibrillation on , urinary retention status post catheter placement on Saturday presenting
to the emergency department with fever and chills as well as weakness. CT scan consistent with transplant pyelonephritis. He still has persistent hydro which likely reflects chronic hydro compared to his prior ultrasound. Known anemia. Picture
consistent with pyelonephritis with bandemia and lactic acidemia consistent with sepsis.
PLAN:
Acute hypoxic respiratory failure likely Multifactorial secondary to pulmonary edema versus pneumonia versus interstitial lung disease
Status post intubation and on mechanical ventilation. S/p extubation 03/25. Still hypoxic and is on nonrebreather. Discussed with patient and he wants to be full code. [employer] also discussed with patient and family and they wanted to be full
code.
On IV steroid, Weaning
-wean sedation/sbt as tolerated
-Already on antibiotics.
-Repeat echo 03/23 with severe , normal EF
-[employer] following
Sepsis shock associated with acute kidney injury, lactic acidosis secondary to Klebsiella bacteremia likely secondary to urinary tract infection
suspected acute pulm edema
- Status post 30 mL/kg crystalloid in ED
- Blood cultures with Klebsiella identification noted. Urine culture also positive for Klebsiella. Repeat surveillance cultures negative so far
- Status post IV cefepime. Now on IV Unasyn.
- some component of shock could be related to sedation.Currently on phenylephrine, wean as tolerated. went hypotensive and tachycardic with HD
- ID following
nephrology rec to hold celcept for now
Epistaxis
Evaluated by ENT, status post left NC packing. now removed. Appears deviated septum per ENT. Monitor
Toxic metabolic encephalopathy likely secondary to shock versus ICU delirium versus hypoxemia versus uremia
appears to be improving when off sedation
Hydronephrosis - Resolving, cannot rule out post obstructive polyuria. Catheter placed by Dr. Jim as outpatient.
- maintain urinary catheter for now
- patient denies any alpha blockade but considering TURP
- monitor i/os
- f/u u/s after tx of elizabeth
- continue cardura with hold parameters when able
ELIZABETH only- Persistent ELIZABETH despite Esteves placement. Recent Treatment for rejection in December.
Metabolic acidosis
- Status post IV fluids with bicarbonate.
- Status post diuretics
- avoid nephrotoxins and renal dose medications
- Patient started on dialysis on 03/20/2025. cw HD per nephrology
- Volume removal should help with hypoxemia.
donor renal transplant 2019 from [facility]
- cellcept on hold per nephrology. On IV steroids
now on HD
Anemia - Macrocytic anemia, recent normal sats but given IV iron infusion without improvement. Denies melena. Colonoscopy November ->single non-bleeding colonic angioectasia and internal hemorrhoids. On eliquis.
- Ferritin level elevated. Hemoglobin Now 8.2. Received blood transfusion this hospitalization
- type and screen and trend H&H for now
- Transfuse hgb <7
Eliquis on hold
Thrombocytopenia likely secondary to septic shock
-Continue to trend platelets.
AFIB Permanent
- holding eliquis . BB held with shock.
Elevated heart rate today, continue to monitor.
DVT PPX - SCD's
Code status - Full Code
Remians critically ill
Anticipated Discharge: > 48 hours
Subjective/Interval History
-
Date of Service: March 27, 2025
seen and examined. on nrb. clinically remains unchanged
Objective Data
-
Labs:
Laboratory Results
03/27/25
03:27
WBC 12.1 H
Hgb 8.4 L
Hct 25.5 L
Plt Count 117 L D
Sodium 135
Potassium 4.0
Chloride 101
Carbon Dioxide 21 L
BUN 84 H
Creatinine 3.5 H
Glucose 102 H
Calcium 8.1 L
Vital Signs:
Vital Signs
Temp Pulse Resp BP Pulse Ox
97.9 F 105 28 166/66 94
03/27/25 11:20 03/27/25 10:00 03/27/25 10:00 03/27/25 03:20 03/27/25 10:00
I&O
03/26/25 03/27/25 03/28/25
06:59 06:59 06:59
Intake Total 390.2 / 390.2 223 / 223
Output Total 600 / 600 420 / 420
Balance -209.8 / -209.8 -197 / -197
--- NOTE | 2025-03-27 16:10 | PTCARENOTE ---
No changes in assessment. Nepro started via DHT at 10mls/hr.
[2025-03-27] MEDS: LOPRESSOR 25 MG PO (19:21)
[2025-03-27] MEDS: SENOKOT-S 1 TABLET TUBE (19:21)
--- NOTE | 2025-03-27 20:00 | PTCARENOTE ---
assumed care, Ox3 forgetful @ x's, [id number], JEFFERSON, c/o intermittent rectal spasms pt request Valium gven per MAR, Afib Afluter c pvcs, weak pedals, L rad A-line zeroed, , Lungs diminished and coarse c crackles @ the bases, Aerosol mask 60% 10L sats 98%,
BSx4, incontinent stool, R nare DHT 65cm, TF 10ml c Q4 25ml NSS flush, Chronic esteves c maroon bloody output, skin per worklist, 20G RAC, L DL PICC, RIJ HD cath, bed alarm applied, call tao within reach, family @ bedside and updated, emotional
support provided, otherwise refer to documentation.
[2025-03-27] MEDS: MELATONIN 5 MG PO (21:47)
--- NOTE | 2025-03-28 | PTCARENOTE ---
systems reviewed, pt sleeping c stable vitals, CHG bath, no changes from previous assessment, otherwise refer to documentation.
[2025-03-28 03:35] LABS: Venous Blood Gas B.E. -4.4 mmol/L (-4 to +4); Venous Blood Gas O2 Sat % 99.7 %
[2025-03-28 03:54] LABS: Hematocrit 27.3 % (39.0-52.0); Hemoglobin 8.7 g/dL (13.0-18.0); Mean Corp Hgb Conc. 31.9 g/dL (33.0-37.0); Mean Corpuscular Volume 94.5 fL (80.0-94.0); Platelet Count 134 10^3/uL (130-400); Red Cell Dist. Width 14.9 % (11.5-14.5)
[2025-03-28 04:02] VITALS: BMI 20.6
--- NOTE | 2025-03-28 04:06 | PTCARENOTE ---
systems reviewed, labs sent, RT decreased FiO2 to 40% c 10L, pt denies spasms but having intermittent hiccups but states they are tolerable , otherwise refer to documentation
[2025-03-28 04:12] LABS: ALT (SGPT) 34 U/L (0-50); AST (SGOT) 22 U/L (17-59); Albumin 2.8 g/dl (3.5-5.0); Alkaline Phosphatase 82 U/L (38-126); Blood Urea Nitrogen 114 mg/dl (9-20); Calcium 8.1 mg/dl (8.4-10.2); Carbon Dioxide 21 mmol/L (22-30); Chloride 103 mmol/L (98-107); Glucose 109 mg/dl (70-99); Magnesium 2.6 mg/dl (1.6-2.3); Potassium 4.1 mmol/L (3.5-5.1); Sodium 136 mmol/L (135-145); Total Protein 5.0 g/dl (6.3-8.2)
[2025-03-28 04:26] LABS: Estimated Creatinine Clearance 15 ml/min; eGFR 14.51
[2025-03-28] MEDS: LOPRESSOR 2.5 MG IV (05:12)
[2025-03-28 05:36] LABS: Nucleated Red Blood Cells % 0 % (-)
[2025-03-28] MEDS: SENOKOT-S TUBE (07:39)
[2025-03-28] MEDS: MIRALAX TUBE (07:39)
[2025-03-28] MEDS: BACTROBAN 2% OINTMENT 1 APPLIC NASAL ×2 (07:39→19:22)
[2025-03-28] MEDS: DELTASONE 2.5 MG PO (07:39)
[2025-03-28] MEDS: LOPRESSOR 25 MG PO ×2 (07:39→19:22)
--- NOTE | 2025-03-28 08:19 | W.PN.INTV ---
Today's Communication / Plan
Recommendations
Extubated 03/25, now on mid flow nasal cannula after being on aerosol mask (FiO2 60%) yesterday
Inflammatory markers are markedly elevated and there is bilateral patchy ground glass pattern seen on CT chest today � inflammatory pneumonitis seems likely at this point - restart high dose steroids
Unfortunately he has not been tolerating HD; may need CRRT versus a slower HD session to see if this is better for him hemodynamically and clinically - next HD session tomorrow
Continue with HD on MWF
Antibiotics per ID
If he does not improve with systemic steroids and there is still a question of volume overload as a cause of his hypoxia + SOB, then he would benefit from right heart cath
Rapid Rhino in left nare removed on 03/26 via ENT
Increase TF rate today to 20cc/hr
No longer needing Precedex; off vasopressors as well (but may need them again during HD)
Keep MAP >65
Bowel regimen
Hold Eliquis in setting of recent epistaxis and anemia
Patient remains critically ill with guarded prognosis
Continue ICU level of care
Assessment
-
79-year-old male with a 1 pack year smoking history, hypertension, nephrolithiasis, pulmonary nodule, atrial fibrillation, and renal transplantation on mycophenolate and prednisone with recent ultrasound showing transplant hydronephrosis presented
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
Septic shock due to UTI - shock state now resolved as of 03/26
Bacteremia-Klebsiella
ELIZABETH-BUN/creatinine-105/5.8 now on iHD
Epistaxis involving left nare s/p rapid Rhino via ENT - rapid rhino removed as of 03/26 - -> epistaxis resolved
Hydronephrosis in transplanted kidney
Acute hypoxic respiratory failure � intubated 03/21/2025; extubated 03/25/2025
Pneumomediastinum (seen on CT chest on 03/28/2025)
Chronic severe inflammatory interstitial pneumonitis with possible acute flare
Renal transplantation since 2018
Chronic immunosuppression
Anemia
Thrombocytopenia
Atrial fibrillation with rapid ventricular response
Leukocytosis
Hypocalcemia
Conditions present prior to admission:
End-stage renal disease status post renal transplantation-[facility] 2018-follows at [facility]-Dr. Hines and locally Dr. Muhammad
Permanent atrial fibrillation/Eliquis.
Hypertension.
BPH.
Postherpetic neuralgia.
Chronic back pain.
Pulmonary nodule right base with negative PET followed by Dr. Olivarez-next CT 02/2025.
Fatty liver.
Inguinal hernia
Osteoporosis.
Hernia repair.
Cataract 2020. Transplant kidney December 2018.
Plan
Patient remains critically ill, although off vasopressors since evening of 03/26 and hypoxia is continuing to improve although he is still markedly short of breath with exertion with significant physical deconditioning and remains in kidney failure
He has not been tolerating HD due to tachypnea, agitation and tachycardia
Unclear if he is still volume overloaded or if the opacification seen on CXR is due to inflammatory pneumonitis
CT chest this AM (03/28) shows evidence of bilateral patchy ground glass opacities with lower lobe predominant bronchiectasis/cylindrical bronchiectasis with subpleural reticular opacities and pneumomediastinum
Trend BNP, CRP, ESR
He was extubated on 03/25, however he remains hypoxic. Now on mid flow nasal cannula at 8 L/min after being on an aerosol mask at 60% FiO2, and he is saturating 89-90% - Unable to use modality with high positive airway pressure given his newly
diagnosed pneumomediastinum, and recent nosebleed and now with a right sided nare NGT (assisted with placement via ENT on 03/26)
- Titrate O2 flow rate to maintain SpO2 >90-94%
- Given his epistaxis with globs of blood seen in the back of oropharynx in the last 1-2 days, would avoid significant positive airway pressure with BiPAP and/or high-flow nasal cannula
- Continue with midflow nasal cannula, wean down as tolerated
- Continue aspiration precautions; keep HOB >30-45�
- prn nebulized bronchodilators - not currently bronchospastic
- Oral and NT-suctioning as needed as he does have a wet sounding cough but is not bringing up anything
- Remains low threshold to re-intubate
Follows Dr. Olivarez for pulmonary nodule and possible interstitial lung disease-ILD serology negative-radiographs appear to have severe interstitial pneumonitis
Patient was on mycophenolate - -> DC'd per Nephro on 03/25
Interstitial lung disease serology unrevealing
He had been weaned down on his steroids, however given his elevated inflammatory markers + CT chest findings with concern for inflammatory pneumonitis, I restarted high-dose steroids with Solu-Medrol 40 mg IV q6hr
Continue to trend inflammatory markers
Cultures reviewed
Blood cultures 03/18/2025-initial positive Klebsiella and subsequent blood cultures negative
MRSA screen negative
Urine culture-Klebsiella and Enterococcus
Influenza negative
Empiric antibiotics-on Unasyn
Infectious disease consultation noted-correspondence reviewed
Trend WBC and monitor temperature curve
Nephrology on board
Hemodialysis as tolerated; may need a slower rate of HD or even may consider CRRT to see if he tolerates this better - Dr. Muhammad agrees with this
Trialed levophed on 03/22 but overnight on 03/22 - 03/23 he developed ectopy, hence he was changed back to lauro. He had been off Lauro-Synephrine as of morning of 03/25, but now required it again during HD due to hypotension; now off again as of
evening of 03/26; keep MAP >65
[address] line in place
Patient has been off vasopressin as of morning of 03/23
Replete calcium levels
Defer repletion of electrolytes to nephrology with HD
Lactate normalized as of 03/19/2025 and no longer need to continue trending at this time
Last transfusion was given on evening of 03/23 after his nosebleed
ENT is on board and on AM of 03/24 the left nasal packing was replaced with a single rapid Rhino with 8 cc of air, and the right nare packing was removed and left unpacked. Now as of 03/26, the left sided rapid Rhino has been removed. ENT assisted
with placement of NGT (Dobbhoff tube) into the right nare. Currently there is no evidence of epistaxis or hemoptysis.
Given the above events, continue to hold Eliquis. I believe that his prior coffee-ground emesis that he had on 03/23 was due to nosebleed - highly unlikely GI bleed at this time. He continues to not have any bloody stool
PPI stopped now that off pressors and no concern for GI bleed
Continue trending Hb
Maintain Hb >7-8 g/dL, and keep platelets >50k
DVT prophylaxis: SCDs
Stress ulcer prophylaxis: N/A
Early nutrition if possible - raise TF rate to 20cc/hr (started trickle rate on 03/27)
Prognosis unfortunately poor with multiorgan dysfunction-goals of care discussion reviewed on 03/23 with the patient's daughters and with Dr. Genao; they understand that he is critically ill but they would like to continue full medical
management for now and are not interested in withdrawal care. As of 03/24, given that his mental status has improved, I recommend to continue with full aggressive management considering that he is improving.
Unfortunately as of 03/25, he continues to be hypoxic and severely deconditioned after extubation. Goals of care discussion held with the and daughter on 03/25. They would like to continue with full medical care, as the feels that this
is what Johann would have wanted. I also discussed this goals of care with the patient himself and he says to 'do what ever is needed' at this time.
The patient last saw Dr. Olivarez 03/08/2025 for ILD, restrictive lung disease and pulmonary nodule-has appointment for PFT 04/28/2025 at 3 PM [address] appointment [address] Olivarez 04/29/2025 at 11:15 AM
Critical care statement: A total of 41 minutes of critical care time was provided for this patient today. This includes management of unstable vital signs, evaluation of the patient at bedside, reviewing the patient's pertinent medical records
including radiographs, microbiology, laboratory evaluations, and discussion with primary team, consultants, pharmacy, nutrition, physical therapy, case management, charge nurse, critical care nursing, and respiratory therapy.
Office note Dr. Olivarez 03/08/2025 in regards to pulmonary nodule:
CT imaging August 2024 revealed approximately 1.3 cm nodular opacity in the right base, not present on previous exam.
Underwent a repeat CT in November 2024 Showed resolution of previously seen right basilar nodule but a new 1.4 cm nodule in the right lower lobe.
Underwent a PET scan 12/17/2024 which showed evolution of right lower lobe nodule, now presenting as large ground glass nodule measuring up to 3.9 cm. Highly suggestive of benign infectious/inflammatory process.
Repeat CT 02/2025: now demonstrate bilateral peribronchiolar ground glass infiltrate bilaterally.Unclear etiology, differential Dx includes inflammatory/infectious process vs pulmonary edema.there is evidence of small bilateral pleural effusions,
with history of aortic stenosis pulmonary edema except possibility.With ongoind immunosupresion will need to keep in my oportunistic infection.
Will obtain ILD serology, proBNP and inflmmatory markers.
Bronchoscopy with BAL may be required-if there is no evidence of volume overload.-Of note He was treated with an antibiotic and steroids middle of October 2024. He denies any active Symptoms suggesting infection.If He does produce any phlegm, we will
submit sputum culture
Diagnostic data:
CT Chest 03/28/2025- Mild pneumomediastinum, with superior extension into the fat at the base of the neck, as well as at the posterior and lateral aspect of the right mid to upper thorax.
Diffuse bilateral interstitial and groundglass opacity. This could be related to fluid associated with interstitial and pulmonary edema related to volume overload or congestive heart failure. Alternatively, findings may be infectious in nature
related to atypical or viral pneumonitis. No focal dense consolidation.
Chest x-ray 03/18/2025-severe chronic inflammatory interstitial pneumonitis
CT abdomen and pelvis 03/18/2025-severe acute edema and inflammation around right lower quadrant renal transplantation, severe hydronephrosis, severe bilateral atrophic [place] kidneys, small bilateral pleural effusions, increased coarse interstitial
markings throughout both lower lobes, right middle lobe with severe chronic inflammatory interstitial pneumonitis
ILD serology 03/10/2025-negative rheumatoid factor, ROXANNE, SSA antibodies, scleroderma antibody, proteinase [address] chest 02/23/2025 Reviewed Uriel Leong 03/08/2025 06:25:26 AM EDT >1. Resolution of previously seen right lower lobe 1.4 cm nodule.2. Mild to moderate changes of pulmonary fibrosis as seen previously.3. Superimposed upon the changes of
fibrosis, there is new large amount of bilateralperibronchovascular interstitial and groundglass opacity with small amount of bilateral upper lungairspace consolidation as detailed above. There are very small bilateral pleural effusions. Whileedema
is a differential consideration, findings are more suggestive of a superimposed infectious orinflammatory process. There is associated mild mediastinal adenopathy.-
PET CT 12/17/2024 reviewed: Uriel Leong 03/08/2025 06:25:44 AM EDT >The previously seen solid right lower lobe nodule has evolved/changed in morphology, nowpresenting as a large groundglass nodule measuring up to 3.9 cm which demonstrates
max SUV 4.7(delayed 5.4). Otherwise, no suspicious FDG avid lesions.ABDOMEN and PELVIS:No suspicious FDG-avid lesions.SKELETON:No suspicious FDG-avid lesions.This suggests inflammatory process.-
CT chest 2023: Reviewed Uriel Leong 07/05/2023 08:49:26 AM >1. No significant acute abnormality identified in the chest within the limits of unenhanced CT, asdescribed above. Probable residual fibrotic changes in the lungs, less
likely active pneumonitis.-
CT chest 02/27/2023: Reviewed Uriel Leong 03/06/2023 08:42:39 AM >There has been significant further improvement in the patient's bilateral parenchymal airspacedisease when compared with the previous examinations.Currently, there is mild
left and moderate diffuse coarsening of the interstitial markingsthroughout both lungs which at this point may be residual scarring/fibrosis rather than acuteinflammatory disease.There is mild cardiomegalyThere is atherosclerosis-
CT chest 11/23/2022: showed evidence of postinflammatory fibrosis. Groundglass opacities have resolved..
Pulmonary function testing ( 07/13/2024� ):FEV1: 3.4 L-107%FVC:3.96 L-89%FEV1/FVC ratio:86%T.52 L-73%RV:44%ERV:RV/TLC ratio:23%DLCO: 13.69-50%DLCO/VA: 70%
Echo 05/19/24: Normal biventricular size and function. EF 65%. Severely dilated LA. Paradoxical low flow low gradient aortic stenosis. Mild AR.
Subjective Dataa
Subjective Data
Date of Service:
Date of Service: March 28, 2025
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
Subjective:
Patient seen at bedside this morning. Currently resting in bed in no acute distress. On 8 L/min nasal cannula, breathing comfortably, saturating 89-90% with heart rate 104 and BP via A-line: 159/57. Inflammatory markers are elevated with ESR 94,
CRP 269.1; proBNP is also continuing to rise (18,600 today).
Review of Systems
General: Other (Negative unless mentioned above)
Objective Data
Data Reviewed
Vital Signs / I&O / Oxygen:
Vital Signs
Temp Pulse Resp BP Pulse Ox
97.5 F 91 25 155/60 93
03/28/25 04:03 03/28/25 10:00 03/28/25 10:00 03/28/25 05:12 03/28/25 10:00
Intake and Output
03/27/25 03/28/25 03/29/25
06:59 06:59 06:59
Intake Total 223 / 223 355 / 365 65 / 65
Output Total 420 / 420 860 / 860
Balance -197 / -197 -505 / -495 65 / 65
SaO2 [ASV] 98
SaO2 [A/C] 96
SaO2 [NIV (Non Invasive 97
Ventilation)]
SaO2 93
Nasal Cannula flow liters per 12
minute
Physical Exam
General: Respiratory Distress (negative), Comfortable, Chills (negative) and Sweats (negative)
HEENT: Normocephalic and Anicteric
Cardiovascular: Irregular Rhythm (Irregularly irregular), Peripheral Edema (negative) and Other (Tachycardic)
Respiratory: Wheeze (n), Crackles (Bilateral (L >R)), Rhonchi (n), Non-Labored Respirations, Stridor (n) and Other (Bubbling in right hemithorax)
GI: Soft, Non Distended, Non Tender and Normal Bowel Sounds
Neurology: Tremors (negative) and Other (Somnolent although easily arousable to voice and tactile stimulation, answering questions appropriately)
Skin: Warm, Dry, Cyanosis (n), Jaundice (n) and Rash (n)
Labs/Micro/Reports
Lab Data
03/28/25 03:27
03/28/25 03:27
--- NOTE | 2025-03-28 08:54 | W.PN.ID1 ---
Date of Service
Date of Service: March 28, 2025
Today's Communication
-Continue Unasyn 3g IV q24H (d9)
Assessment / Plan
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
# Klebsiella bacteremia - source
# Transplant kidney pyelonephritis with Klebsiella and E. faecalis
# Obstructive uropathy of transplant kidney, esteves placed 03/15
# Fever - resolved
# Leukocytosis - steroids weaned today
# Shock
- leukocytosis likely relates to recent steroids
-03/20 Repeat bcx's negative
-03/18 Ucx: Klebsiella and Enterococcus
-Continue Unasyn 3g IV q24H (d9) renally dosed
# Acute hypoxemic respiratory failure - intubated 03/21; extubated 03/25
- Pulm edema superimposed on chronic inflammatory interstitial pneumonitis.
- probnp [id number] today
- now back on home dose steroid pred 2.5 mg PO BID
# ELIZABETH on CKD - HD started 03/20
# Hypotension during HD
# Epistaxis, gross hematuria
- Eliquis on hold
# Conditions present on admission
donor renal transplant on mycophenolate, belatacept, prednisone 2.5 twice daily 2018
Atrial fibrillation
Post-COVID chronic inflammatory interstitial pneumonitis
Hypertension
BPH
Postherpetic neuralgia
Chronic back pain
Chief Complaint
-: UTI
Subjective / Review of Systems
fiO2 down to 40% on 10L
hiccups
dark maroon urine
Vital Signs / Physical Exam
Vital Signs
Vital Signs
Temp Pulse Resp BP Pulse Ox
97.5 F 79 20 155/60 100
03/28/25 04:03 03/28/25 06:00 03/28/25 06:00 03/28/25 05:12 03/28/25 06:00
Physical Exam
Constitutional: No Acute Distress
Cardiovascular: Regular Rate and S1/S2; Negative Murmur or Rub
Pulmonary: Clear and Symmetric; Negative Wheezes or Rales
Gastrointestinal: Soft, Non Tender and Non Distended
Genito-Urinary: Other (maroon urine); Negative Suprapubic Tenderness
Skin: Warm and Dry; Negative Rash or Jaundice
Objective Data
Lab Data
Lab Results
03/28/25 03:27
03/28/25 03:27
ESR 94 mm/hour (0-20) H 03/28/25 03:27
PT 17.8 Sec (11.4-14.6) H 03/24/25 04:05
INR 1.44 03/24/25 04:05
APTT 26.8 Sec (23.4-35.0) 03/24/25 04:05
Estimated Creat Clear 15 ml/min 03/28/25 03:27
Lactic Acid 1.2 mmol/L (0.7-2.0) 03/19/25 23:40
Total Bilirubin 4.2 mg/dl (0.2-1.3) H 03/28/25 03:27
AST 22 U/L (17-59) 03/28/25 03:27
ALT 34 U/L (0-50) 03/28/25 03:27
Alkaline Phosphatase 82 U/L (38-126) 03/28/25 03:27
C-Reactive Protein 269.10 mg/L (0.0-10.00) H 03/28/25 03:27
Most recent labs reviewed.
probnp [id number]
Micro Results:
03/20/25 05:07 Blood Culture - Final
Blood/Venous No Growth - Final Report
03/20/25 05:34 Blood Culture - Final
Blood/Venous No Growth - Final Report
03/18/25 18:13 Urine Culture - Final
Urine Klebsiella pneumoniae
Enterococcus faecalis
03/18/25 17:02 Blood Culture - Final
Blood/Venous Klebsiella pneumoniae
Gram Stain - Final
03/18/25 17:01 Blood Culture - Final
Blood/Venous Klebsiella pneumoniae
Gram Stain - Final
03/18/25 23:17 MRSA Screen - Final
Nose No Methicillin Resistant Staphylococcus aureus isolated.
03/18/25 17:03 Influenza Types A & B (NOLVIA) - Final
Nasal Swab Negative for Influenza A & B, NAAT
Negative results must be combined with clinical observations
and patient history.
Nucleic Acid Amplification test (NAAT)performed on the
[employer] platform.
03/20/25 CXR: Grossly stable severe diffuse bilateral interstitial and airspace disease which may reflect combination of pulmonary edema and pneumonia. Cannot rule out component of underlying chronic interstitial lung disease.
03/19/25 CXR: Progressive parenchymal disease process, as described. Differential includes progressive congestive heart failure with pulmonary edema versus diffuse bilateral pneumonia, right greater than left.
03/18/25 CT a/p: Severe acute edema and inflammation around the right lower quadrant renal transplant which is new from 12/17/2024. Severe hydronephrosis of the right intrarenal collecting system and right renal pelvis which has increased. ACUTE
PYELONEPHRITIS of the RIGHT LOWER QUADRANT RENAL TRANSPLANT is considered most likely. Acute infarction of the renal transplant is a less likely diagnostic possibility. Severe diffuse urinary bladder wall thickening with surrounding perivesical
inflammation which appears new from 12/17/2024 suggesting SEVERE ACUTE CYSTITIS. Esteves catheter in the urinary bladder. Mildly enlarged prostate gland.
--- NOTE | 2025-03-28 09:36 | PTCARENOTE ---
Rec'd pt at 0700, pt drowsy but easily arousable to verbal stimuli. Oriented x2, reoriented to time. Monitor Afib. Lungs with bibasilar rales R>L, pox 98% on aerosol mask. Pt placed on 10L midflow with humidification, pox 92-95%. +BS, abd soft/nt.
DHT with Nepro 10mls/hr. Small foam applied to open area on sacrum. Calazime to periarea. Esteves draining sarah blood tinged urine, esteves care performed. Pt to CT scan, tolerated well. Back in room at this time, repositioned.
--- NOTE | 2025-03-28 10:30 | PTOTSP ---
Speech Language Pathology
Pt seen for clinical bedside swallow evaluation. 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 Pt on 8LM midflow during evaluation. Baseline Sp02 91% with RR of 35. P.O. trials of ice chips, thin liquids, and puree provided. Slight decrease in Sp02
with effort of swallowing, as low as 86%. Slow recovery with cueing for slow deep breaths. Vocal quality remained clear with no overt signs of aspiration.
Risk factors for aspiration and aspiration-related consequences include recent extubation with current hoarse vocal quality, current 02 needs, and overall deconditioning. Respiratory status not currently supportive of P.O. diet.
Recommend:
(1) NPO
(2) Allow single sips of thin water as tolerated if Sp02 >90% and RR <30 per Aspiration Risk Hydration Protocol (given supervision)
(3) Oral care 4x/day with suctioning as needed
(4) Meds via NGT
(5) UNDERWRITER to continue to follow
--- NOTE | 2025-03-28 11:07 | W.PN.NEPH.PH ---
Addendum entered and electronically signed by Brigida Valera MD 03/28/25 13:25:
called and updated and daughter on phone
answered questions
Original Note:
Today's Communication / Plan
-
CRRT tomorrow
Assessment/Plan
-
This is a 79-year-old gentleman who follows in our office with Dr. Muhammad after donor renal transplant 2018 from [facility]. His transplant course has been complicated by development of nephrotic range proteinuria as well as recent
cellular rejection December of this year. The episodes treated with Solu-Medrol. His creatinine has risen quickly over time in the last several months. He has gone from a creatinine around 2 now up to 4.4. He was noted to have hydronephrosis of
the transplanted kidney recently on ultrasound as well as CT scan. Esteves catheter was placed by urology a few days ago. His appetite has been poor as of late. Recently he also developed fever and malaise and this has brought him to the emergency
room. He was noted to be febrile in the ER. Blood pressure was stable though lower than his home readings of 132. He was 100 systolic in the ER. Creatinine was 4.7 with elevated lactate level and elevated white count. CT of the abdomen and
pelvis were performed with suspicion for pyelonephritis of the transplant. We are asked to assist in management of his renal issues.
Assessment
Sepsis syndrome, possible pyelonephritis
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
donor renal transplant with FSGS, recent T-cell rejection
Obstructive uropathy, Esteves catheter in place
ELIZABETH..
Anemia
Hyponatremia
lactic acidosis
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
Plan
ELIZABETH-progressive in setting of sepsis
now on HD,variable UOP and cr increasing
no renal recovery noted so would cont HD
Bp stable off pressors
continue steroid per prulm,now on IV, off MMF
mild hematuria with esteves-monitor
slighttly improving O2 requirements has underlying interstitial lung disease, reviewed CT chest
volume off did not help much in resp status, steroid changed to iV
echo noted severe but in setting of anemia, consider cards eval
if no improvement in resp status likely need RHC
case reviewed with pulm , plan CRRT tomorrow
abx per ID
dose meds renally
recent epistaxis managed by ENT, h/h stable
Dr. Muhammad who has reached out to his on 03/25 and reviewed the case in detail
CC time spent 31min
-
-
Date of Service: March 28, 2025
CC / HPI / ROS
-
Chief Complaint:
Sepsis
History of Present Illness:
Acute kidney injury multifactorial obstructive uropathy, sepsis
remains off pressors
extubated 03/25, on NC mid flow 8lit
hb low 8.7 stable, 1 PRBC on 03/22
wt is down
Review of Systems:
non oliguric with esteves
no fever, imporving sob
no pain , cough +
Labs
-
Labs:
WBC 14.9 10^3/uL (4.8-10.8) H 03/28/25 03:27
RBC 2.89 10^6/uL (4.70-6.10) L 03/28/25 03:27
Hgb 8.7 g/dL (13.0-18.0) L 03/28/25 03:27
Hct 27.3 % (39.0-52.0) L 03/28/25 03:27
Plt Count 134 10^3/uL (130-400) 03/28/25 03:27
Sodium 136 mmol/L (135-145) 03/28/25 03:27
Potassium 4.1 mmol/L (3.5-5.1) 03/28/25 03:27
Chloride 103 mmol/L (98-107) 03/28/25 03:27
Carbon Dioxide 21 mmol/L (22-30) L 03/28/25 03:27
BUN 114 mg/dl (9-20) H* 03/28/25 03:27
Creatinine 4.0 mg/dL (0.7-1.3) H 03/28/25 03:27
eGFR 14.51 03/28/25 03:27
Glucose 109 mg/dl (70-99) H 03/28/25 03:27
Calcium 8.1 mg/dl (8.4-10.2) L 03/28/25 03:27
Phosphorus 9.0 mg/dl (2.5-4.5) H 03/28/25 03:27
Piq-J-Jkpqujyoevt Pept 71204 pg/ml 03/28/25 03:28
Albumin 2.8 g/dl (3.5-5.0) L 03/28/25 03:27
Physical Exam
-
Vital Signs:
Vital Signs
Temp Pulse Resp BP Pulse Ox
97.6 F 110 22 155/60 94
03/28/25 11:30 03/28/25 12:00 03/28/25 12:00 03/28/25 05:12 03/28/25 12:00
Cardiovascular:: Regular rate and rhythm
Respiratory:: Bilateral: Coarse
Lung Excursion:: Abnormal
Abdomen:: Nontender and Soft
Extremity Edema:: None: Bilateral:
Esteves Catheter: Yes
[2025-03-28] MEDS: SOLU-MEDROL PF 40 MG IV ×3 (11:27→23:56)
--- NOTE | 2025-03-28 12:36 | PTCARENOTE ---
pox 94% on 8L midflow. Seen by speech at bedside, ok for sips of clears. Pt repositioned in chair position. Nepro increased to 20mls/hr per MD. No changes in assessment.
--- NOTE | 2025-03-28 13:23 | W.PN.HOSP.TC ---
Today's Communication/Plan
-
Assessment / Plan
Assessment / Plan
General: No Apparent Distress
HEENT: NormoCephalic, Moist mucous membranes,
Respiratory: Rhonchi's, nasal cannula, R chest wall HD catheter noted
Cardiac: S1/S2, Regular Rhythm and Murmur (3 out of 6 systolic murmur)
GI: Soft, Non Tender, Non Distended and Normal Bowel Sounds;
Rectal: Deferred by Provider
-esteves
Skin: No Rash
Neuro: AAO x 3
79-year-old with history of end-stage renal disease status post kidney transplant 2018 on antirejection medications, hypertension, hyperlipidemia, atrial fibrillation on , urinary retention status post catheter placement on Saturday presenting
to the emergency department with fever and chills as well as weakness. CT scan consistent with transplant pyelonephritis. He still has persistent hydro which likely reflects chronic hydro compared to his prior ultrasound. Known anemia. Picture
consistent with pyelonephritis with bandemia and lactic acidemia consistent with sepsis.
PLAN:
Acute hypoxic respiratory failure likely Multifactorial secondary to pulmonary edema versus pneumonia versus interstitial lung disease
Status post intubation and on mechanical ventilation. S/p extubation 03/25. Still hypoxic and is on nonrebreather. Discussed with patient and he wants to be full code. Hand[employer] Manager also discussed with patient and family and they wanted to be full
code.
On IV steroid, Weaning
-wean sedation/sbt as tolerated
-Already on antibiotics.
-Repeat echo 03/23 with severe , normal EF
-Handicraft Or Hobby Shop Manager following
Sepsis shock associated with acute kidney injury, lactic acidosis secondary to Klebsiella bacteremia likely secondary to urinary tract infection
suspected acute pulm edema
- Status post 30 mL/kg crystalloid in ED
- Blood cultures with Klebsiella identification noted. Urine culture also positive for Klebsiella. Repeat surveillance cultures negative so far
- Status post IV cefepime. Now on IV Unasyn.
- some component of shock could be related to sedation.Currently on phenylephrine, wean as tolerated. went hypotensive and tachycardic with HD
- ID following
nephrology rec to hold celcept for now
Epistaxis
Evaluated by ENT, status post left NC packing. now removed. Appears deviated septum per ENT. Monitor
Toxic metabolic encephalopathy likely secondary to shock versus ICU delirium versus hypoxemia versus uremia
appears to be improving when off sedation
Hydronephrosis - Resolving, cannot rule out post obstructive polyuria. Catheter placed by Dr. Jim as outpatient.
- maintain urinary catheter for now
- patient denies any alpha blockade but considering TURP
- monitor i/os
- f/u u/s after tx of elizabeth
- continue cardura with hold parameters when able
ELIZABETH only- Persistent ELIZABETH despite Esteves placement. Recent Treatment for rejection in December.
Metabolic acidosis
- Status post IV fluids with bicarbonate.
- Status post diuretics
- avoid nephrotoxins and renal dose medications
- Patient started on dialysis on 03/20/2025. cw HD per nephrology
- Volume removal should help with hypoxemia.
donor renal transplant 2019 from [facility]
- cellcept on hold per nephrology. On IV steroids
now on HD
Anemia - Macrocytic anemia, recent normal sats but given IV iron infusion without improvement. Denies melena. Colonoscopy November ->single non-bleeding colonic angioectasia and internal hemorrhoids. On eliquis.
- Ferritin level elevated. Hemoglobin Now 8.2. Received blood transfusion this hospitalization
- type and screen and trend H&H for now
- Transfuse hgb <7
Eliquis on hold
Thrombocytopenia likely secondary to septic shock
-Continue to trend platelets.
AFIB Permanent
- holding eliquis . BB held with shock.
Elevated heart rate today, continue to monitor.
DVT PPX - SCD's
Code status - Full Code
Remians critically ill
Anticipated Discharge: > 48 hours
Subjective/Interval History
-
Date of Service: March 28, 2025
Seen and examined. More awake today. Knows his name. He is in year.
Still on tube feeds via Dobbhoff.
Objective Data
-
Labs:
Laboratory Results
03/28/25
03:27
WBC 14.9 H
Hgb 8.7 L
Hct 27.3 L
Plt Count 134
Sodium 136
Potassium 4.1
Chloride 103
Carbon Dioxide 21 L
BUN 114 H*
Creatinine 4.0 H
Glucose 109 H
Calcium 8.1 L
Total Bilirubin 4.2 H
AST 22
ALT 34
Alkaline Phosphatase 82
Vital Signs:
Vital Signs
Temp Pulse Resp BP Pulse Ox
97.6 F 110 22 155/60 94
03/28/25 11:30 03/28/25 12:00 03/28/25 12:00 03/28/25 05:12 03/28/25 12:00
I&O
03/27/25 03/28/25 03/29/25
06:59 06:59 06:59
Intake Total 223 / 223 355 / 365 120 / 120
Output Total 420 / 420 860 / 860
Balance -197 / -197 -505 / -495 120 / 120
[2025-03-28] MEDS: UNASYN IV (13:45)
[2025-03-28] MEDS: REFRESH EYE DROPS (PF) 1 DROPS OPHTH (17:26)
--- NOTE | 2025-03-28 17:53 | PTCARENOTE ---
and daughter in to visit, updated. No changes in assessment.
[2025-03-28] MEDS: SENOKOT-S 1 TABLET TUBE (19:22)
[2025-03-28] MEDS: VALIUM INJECTION 5 MG IV (20:32)
--- NOTE | 2025-03-28 21:12 | PTCARENOTE ---
Received pt from previous RN. Pt is AAOx3, [place], drowsy, garbled/slow speech, forgetful, anxious at times. Afib/Aflutter w/ PVCs on the monitor. Received pt on 8L midflow, O2 weaned to 6L midflow, O2 sat 95%, lungs coarse/diminished. Dobhoff in the
right nare at 65 cm, Nepro at 20 ml/hr with 25 ml water flush Q4. Disla in place, sarah/bloody, hygiene provided. Pt incont of loose BM. CHG bath and mouth care provided. Call tao in reach. Safe environment maintained.
[2025-03-28] MEDS: MELATONIN 5 MG PO (21:39)
--- NOTE | 2025-03-29 00:49 | PTCARENOTE ---
Systems reviewed, no new changes in assessment. Call tao in reach. Safe environment maintained.
[2025-03-29 02:50] VITALS: BMI 20.3
[2025-03-29 03:05] LABS: Hematocrit 29.0 % (39.0-52.0); Hemoglobin 9.3 g/dL (13.0-18.0); Mean Corp Hgb Conc. 32.0 g/dL (33.0-37.0); Mean Corpuscular Volume 94.5 fL (80.0-94.0); Platelet Count 194 10^3/uL (130-400); Red Cell Dist. Width 15.4 % (11.5-14.5)
[2025-03-29 03:24] LABS: Calcium 8.6 mg/dl (8.4-10.2); Carbon Dioxide 18 mmol/L (22-30); Chloride 104 mmol/L (98-107); Glucose 203 mg/dl (70-99); Potassium 4.4 mmol/L (3.5-5.1); Sodium 140 mmol/L (135-145)
[2025-03-29 03:37] LABS: Blood Urea Nitrogen 147 mg/dl (9-20); Estimated Creatinine Clearance 14 ml/min; eGFR 14.51
--- NOTE | 2025-03-29 03:44 | PTCARENOTE ---
Systems reviewed, no new changes in assessment. AM labs provided. Call tao in reach. Safe environment maintained.
[2025-03-29] MEDS: SOLU-MEDROL PF 40 MG IV ×4 (05:40→23:44)
[2025-03-29] MEDS: REFRESH EYE DROPS (PF) 1 DROPS OPHTH ×2 (06:02→11:40)
[2025-03-29] MEDS: BACTROBAN 2% OINTMENT 1 APPLIC NASAL ×2 (07:27→19:44)
[2025-03-29] MEDS: SENOKOT-S 1 TABLET TUBE ×2 (07:27→19:44)
[2025-03-29] MEDS: LOPRESSOR 25 MG PO ×2 (07:27→19:43)
[2025-03-29] MEDS: MIRALAX TUBE (07:27)
--- NOTE | 2025-03-29 08:03 | W.PN.NEPH.PH ---
Today's Communication / Plan
-
Will initiate CRRT
Assessment/Plan
-
This is a 79-year-old gentleman who follows in our office with Dr. Muhammad after donor renal transplant 2019 from [facility]. His transplant course has been complicated by development of nephrotic range proteinuria as well as recent
cellular rejection December of this year. The episodes treated with Solu-Medrol. His creatinine has risen quickly over time in the last several months. He has gone from a creatinine around 2 now up to 4.4. He was noted to have hydronephrosis of
the transplanted kidney recently on ultrasound as well as CT scan. Esteves catheter was placed by urology a few days ago. His appetite has been poor as of late. Recently he also developed fever and malaise and this has brought him to the emergency
room. He was noted to be febrile in the ER. Blood pressure was stable though lower than his home readings of 132. He was 100 systolic in the ER. Creatinine was 4.7 with elevated lactate level and elevated white count. CT of the abdomen and
pelvis were performed with suspicion for pyelonephritis of the transplant. We are asked to assist in management of his renal issues.
Assessment
Sepsis syndrome, possible pyelonephritis
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
donor renal transplant with FSGS, recent T-cell rejection
Obstructive uropathy, Esteves catheter in place
ELIZABETH..
Anemia
Hyponatremia
lactic acidosis
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
Plan
ELIZABETH-progressive in setting of sepsis
now on HD,variable UOP and cr increasing , BUN greater than 140
Bp stable off pressors
continue steroid per pulmonary,now on IV, off MMF
mild hematuria with esteves-monitor
improving O2 requirements has underlying interstitial lung disease, reviewed CT chest
volume off did not help much in resp status, steroid changed to iV
echo noted severe but in setting of anemia,
if no improvement in resp status likely need RHC
case reviewed with puljose , plan CRRT today
abx per ID
dose meds renally
recent epistaxis managed by ENT, h/h stable
Dr. Muhammad who has reached out to his on 03/25 and reviewed the case in detail
Patient critically ill and will require CRRT to be initiated today, will start even u/f
CC time spent 31min
-
-
Date of Service: March 29, 2025
CC / HPI / ROS
-
Chief Complaint:
Sepsis
History of Present Illness:
Acute kidney injury multifactorial obstructive uropathy, sepsis
remains off pressors
extubated 03/25, on NC mid flow 8lit
hb 9.3 stable, 1 PRBC on 03/22
wt is down
Review of Systems:
non oliguric with esteves
no fever, improving
no pain , cough +
Weights down
Labs
-
Labs:
WBC 15.0 10^3/uL (4.8-10.8) H 03/29/25 02:46
RBC 3.08 10^6/uL (4.70-6.10) L 03/29/25 02:46
Hgb 9.3 g/dL (13.0-18.0) L 03/29/25 02:46
Hct 29.0 % (39.0-52.0) L 03/29/25 02:46
Plt Count 194 10^3/uL (130-400) D 03/29/25 02:46
Sodium 140 mmol/L (135-145) 03/29/25 02:46
Potassium 4.4 mmol/L (3.5-5.1) 03/29/25 02:46
Chloride 104 mmol/L (98-107) 03/29/25 02:46
Carbon Dioxide 18 mmol/L (22-30) L 03/29/25 02:46
BUN 147 mg/dl (9-20) H* 03/29/25 02:46
Creatinine 4.0 mg/dL (0.7-1.3) H 03/29/25 02:46
eGFR 14.51 03/29/25 02:46
Glucose 203 mg/dl (70-99) H 03/29/25 02:46
Calcium 8.6 mg/dl (8.4-10.2) 03/29/25 02:46
Phosphorus 9.0 mg/dl (2.5-4.5) H 03/28/25 03:27
Hkm-S-Kdkijpbyxoj Pept 50469 pg/ml 03/28/25 03:28
Albumin 2.8 g/dl (3.5-5.0) L 03/28/25 03:27
Physical Exam
-
Vital Signs:
Vital Signs
Temp Pulse Resp BP Pulse Ox
96.9 F L 104 25 140/63 92
03/29/25 03:15 03/29/25 08:00 03/29/25 08:00 03/28/25 19:22 03/29/25 08:00
Cardiovascular:: Regular rate and rhythm
Respiratory:: Bilateral: Coarse
Lung Excursion:: Abnormal
Abdomen:: Nontender and Soft
Extremity Edema:: None: Bilateral:
Esteves Catheter: Yes
Other Findings::
Feeding tube
--- NOTE | 2025-03-29 08:30 | PTCARENOTE ---
Received pt from previous RN. Pt is AAOx3, [place], drowsy, slow speech, forgetful, anxious at times. Afib/Aflutter w/ PVCs on the monitor. Received pt on 4L midflow, SpO2 sat 92%, lungs coarse/diminished. Dobhoff in the right nare at 65 cm, Nepro at
20 ml/hr with 25 ml water flush Q4. Disla in place, sarah/bloody, hygiene provided. Pt incontinent of loose BM. Mouth care provided. Call tao in reach. Safe environment maintained.
--- NOTE | 2025-03-29 10:55 | W.PN.INTV ---
Today's Communication / Plan
Recommendations
- Initiate CRRT
- Follow-up chest x-ray in a.m.
- If pulmonary opacities not improving with CRRT in the next 24 to 48 hours, will consider right heart catheterization
- FEES. speech therapy evaluation/treatmment
Assessment
-
79-year-old male with a 1 pack year smoking history, hypertension, nephrolithiasis, pulmonary nodule, atrial fibrillation, and renal transplantation on mycophenolate and prednisone with recent ultrasound showing transplant hydronephrosis presented
with 2 days of fever found to be septic with ELIZABETH-cps team lead consulted for sepsis/shock/ELIZABETH 03/20/2025.
#1. Septic shock due to UTI/acute pyelonephritis, with Klebsiella bacteremia
- Off pressors now, hemodynamically stable
- 03/29, normal MAP. Shock resolved
- ID service on case, currently on IV Unasyn.
- Klebsiella and Enterococcus on urine cultures
#2. Acute hypoxic respiratory failure
- Patient was intubated 03/21, extubated 03/25, continues to require supplemental oxygen, currently on 4 L supplemental oxygen via nasal cannula, saturating 93%
- Bilateral interstitial opacities, basal predominant with interseptal thickening, suggestive of pulmonary edema versus interstitial lung disease
- Patient has baseline mild reticular changes on imaging suggestive of mild fibrosis, current imaging with significant worsening
- Patient has severe aortic stenosis, poor tolerance of HD with significant uremia, fluid overload-differential diagnosis
- ILD exacerbation cannot be ruled out, patient empirically started on high-dose IV steroids on 03/28
- 03/29, CRRT initiating. If pulmonary opacities do not improve in 24 to 48 hours with volume removal, will consider right heart catheterization to evaluate for pulmonary capillary wedge pressure
- Mild pneumomediastinum noted on imaging, suspect related to intubation and mechanical ventilation, follow-up chest x-ray in a.m.
#3. ELIZABETH with hydronephrosis of transplanted kidney
- Severe pyelonephritis as well as obstructive uropathy with hydronephrosis noted on imaging
- S/p Disla catheter placement, essentially anuric
- No renal recovery noted, patient had been initiated on hemodialysis
- Due to poor tolerance of HD, 03/29, being transition to CRRT
- History of renal transplant in 2019. MMF is currently on hold
#4. Epistaxis involving left nare s/p rapid Rhino via ENT - rapid rhino removed as of 03/26
- No further epistaxis noted
- Resume Eliquis at reduced dose, if no active bleeding noted, will uptitrate to Eliquis 5 twice daily next 24 to 48 hours
#5. History of pulmonary nodules and baseline mild ILD
- Review of prior imaging shows mild reticular changes mostly in the posterior and basal area
- Concerning for chronic ILD versus early fibrotic changes with prior history of COVID-19
- Patient follows up with Dr. Alex at [facility] pulmonary clinic.
- Connective tissue disease panel negative with normal ROXANNE and rheumatoid factor levels.
- Current worsening concerning for volume overload versus ILD exacerbation
#6. Atrial fibrillation with rapid ventricular response
- Continue metoprolol as tolerated
- 03/29, resume Eliquis at reduced dose
Conditions present prior to admission:
End-stage renal disease status post renal transplantation-[facility] 2018-follows at [facility]-Dr. Hines and locally Dr. Muhammad
Permanent atrial fibrillation/Eliquis.
Hypertension.
BPH.
Postherpetic neuralgia.
Chronic back pain.
Pulmonary nodule right base with negative PET followed by Dr. Olivarez-next CT 02/2025.
Fatty liver.
Inguinal hernia
Osteoporosis.
Hernia repair.
Cataract 2020. Transplant kidney December 2018.
DVT prophylaxis: Eliquis resumed.
Stress ulcer prophylaxis: N/A
FEES 03/29. PO as tolerated
Prognosis unfortunately poor with multiorgan dysfunction-goals of care discussion reviewed on 03/23 with the patient's daughters and with Dr. Genao; they understand that he is critically ill but they would like to continue full medical
management for now and are not interested in withdrawal care. As of 03/24, given that his mental status has improved, I recommend to continue with full aggressive management considering that he is improving.
Unfortunately as of 03/25, he continues to be hypoxic and severely deconditioned after extubation. Goals of care discussion held with the and daughter on 03/25. They would like to continue with full medical care, as the feels that this
is what Johann would have wanted. I also discussed this goals of care with the patient himself and he says to 'do what ever is needed' at this time.
The patient last saw Dr. Olivarez 03/08/2025 for ILD, restrictive lung disease and pulmonary nodule-has appointment for PFT 04/28/2025 at 3 PM [address] appointment [address] Olivarez 04/29/2025 at 11:15 AM
Critical care statement: A total of 45 minutes of critical care time was provided for this patient today. This includes management of unstable vital signs, evaluation of the patient at bedside, reviewing the patient's pertinent medical records
including radiographs, microbiology, laboratory evaluations, and discussion with primary team, consultants, pharmacy, nutrition, physical therapy, case management, charge nurse, critical care nursing, and respiratory therapy.
Office note Dr. Olivarez 03/08/2025 in regards to pulmonary nodule:
CT imaging August 2024 revealed approximately 1.3 cm nodular opacity in the right base, not present on previous exam.
Underwent a repeat CT in November 2024 Showed resolution of previously seen right basilar nodule but a new 1.4 cm nodule in the right lower lobe.
Underwent a PET scan 12/17/2024 which showed evolution of right lower lobe nodule, now presenting as large ground glass nodule measuring up to 3.9 cm. Highly suggestive of benign infectious/inflammatory process.
Repeat CT 02/2025: now demonstrate bilateral peribronchiolar ground glass infiltrate bilaterally.Unclear etiology, differential Dx includes inflammatory/infectious process vs pulmonary edema.there is evidence of small bilateral pleural effusions,
with history of aortic stenosis pulmonary edema except possibility.With ongoind immunosupresion will need to keep in my oportunistic infection.
Will obtain ILD serology, proBNP and inflmmatory markers.
Bronchoscopy with BAL may be required-if there is no evidence of volume overload.-Of note He was treated with an antibiotic and steroids middle of October 2024. He denies any active Symptoms suggesting infection.If He does produce any phlegm, we will
submit sputum culture
Diagnostic data:
CT Chest 03/28/2025- Mild pneumomediastinum, with superior extension into the fat at the base of the neck, as well as at the posterior and lateral aspect of the right mid to upper thorax.
Diffuse bilateral interstitial and groundglass opacity. This could be related to fluid associated with interstitial and pulmonary edema related to volume overload or congestive heart failure. Alternatively, findings may be infectious in nature
related to atypical or viral pneumonitis. No focal dense consolidation.
Chest x-ray 03/18/2025-severe chronic inflammatory interstitial pneumonitis
CT abdomen and pelvis 03/18/2025-severe acute edema and inflammation around right lower quadrant renal transplantation, severe hydronephrosis, severe bilateral atrophic [place] kidneys, small bilateral pleural effusions, increased coarse interstitial
markings throughout both lower lobes, right middle lobe with severe chronic inflammatory interstitial pneumonitis
ILD serology 03/10/2025-negative rheumatoid factor, ROXANNE, SSA antibodies, scleroderma antibody, proteinase [address] chest 02/23/2025 Reviewed Uriel Leong 03/08/2025 06:25:26 AM EDT >1. Resolution of previously seen right lower lobe 1.4 cm nodule.2. Mild to moderate changes of pulmonary fibrosis as seen previously.3. Superimposed upon the changes of
fibrosis, there is new large amount of bilateralperibronchovascular interstitial and groundglass opacity with small amount of bilateral upper lungairspace consolidation as detailed above. There are very small bilateral pleural effusions. Whileedema
is a differential consideration, findings are more suggestive of a superimposed infectious orinflammatory process. There is associated mild mediastinal adenopathy.-
PET CT 12/17/2024 reviewed: Uriel Leong 03/08/2025 06:25:44 AM EDT >The previously seen solid right lower lobe nodule has evolved/changed in morphology, nowpresenting as a large groundglass nodule measuring up to 3.9 cm which demonstrates
max SUV 4.7(delayed 5.4). Otherwise, no suspicious FDG avid lesions.ABDOMEN and PELVIS:No suspicious FDG-avid lesions.SKELETON:No suspicious FDG-avid lesions.This suggests inflammatory process.-
CT chest 2023: Reviewed Uriel Leong 07/05/2023 08:49:26 AM >1. No significant acute abnormality identified in the chest within the limits of unenhanced CT, asdescribed above. Probable residual fibrotic changes in the lungs, less
likely active pneumonitis.-
CT chest 02/27/2023: Reviewed Uriel Leong 03/06/2023 08:42:39 AM >There has been significant further improvement in the patient's bilateral parenchymal airspacedisease when compared with the previous examinations.Currently, there is mild
left and moderate diffuse coarsening of the interstitial markingsthroughout both lungs which at this point may be residual scarring/fibrosis rather than acuteinflammatory disease.There is mild cardiomegalyThere is atherosclerosis-
CT chest 11/23/2022: showed evidence of postinflammatory fibrosis. Groundglass opacities have resolved..
Pulmonary function testing ( 07/13/2024� ):FEV1: 3.4 L-107%FVC:3.96 L-89%FEV1/FVC ratio:86%T.52 L-73%RV:44%ERV:RV/TLC ratio:23%DLCO: 13.69-50%DLCO/VA: 70%
Echo 05/19/24: Normal biventricular size and function. EF 65%. Severely dilated LA. Paradoxical low flow low gradient aortic stenosis. Mild AR.
Subjective Dataa
Subjective Data
Date of Service:
Date of Service: March 29, 2025
Chief Complaint: Velvet Cutter Follow Up and Pulmonary Follow Up
Subjective:
Patient lying in bed in no acute distress. Continues to report dyspnea.
Review of Systems
Genitourinary: Other (All 14 systems reviewed and negative except as stated above in the history of present illness.)
Objective Data
Data Reviewed
Vital Signs / I&O / Oxygen:
Vital Signs
Temp Pulse Resp BP Pulse Ox
96.3 F L 96 19 140/63 93
03/29/25 07:30 03/29/25 09:00 03/29/25 09:00 03/28/25 19:22 03/29/25 09:00
Intake and Output
03/28/25 03/29/25 03/30/25
06:59 06:59 06:59
Intake Total 355 / 365 725 / 1060 375 / 375
Output Total 860 / 860 860 / 860
Balance -505 / -495 -135 / 200 375 / 375
SaO2 [ASV] 98
SaO2 [A/C] 96
SaO2 [NIV (Non Invasive 97
Ventilation)]
SaO2 93
Nasal Cannula flow liters per 4
minute
Physical Exam
General: Respiratory Distress (negative), Comfortable, Chills (negative) and Sweats (negative)
HEENT: Normocephalic and Anicteric
Cardiovascular: Irregular Rhythm (Irregularly irregular), Peripheral Edema (negative) and Other (Tachycardic)
Respiratory: Wheeze (n), Crackles (Bilateral (L >R)), Rhonchi (n), Non-Labored Respirations, Stridor (n) and Other (Bubbling in right hemithorax)
GI: Soft, Non Distended, Non Tender and Normal Bowel Sounds
Neurology: Tremors (negative) and Other (Somnolent although easily arousable to voice and tactile stimulation, answering questions appropriately)
Skin: Warm, Dry, Cyanosis (n), Jaundice (n) and Rash (n)
Labs/Micro/Reports
Lab Data
03/29/25 02:46
03/29/25 02:46
--- NOTE | 2025-03-29 10:55 | PN.CDI ---
CDI
- -
CDI:
Physician Documentation Request
Admit Date: 03/18/25 19:48
Dear Doctor Edy,
Patient admitted with sepsis/shock. Pt noted to have a history of macrocytic anemia in progress notes.
Patient seen by ENT for epistaxis. Patient also noted to have mild hematuria.
Patient has received 4 units of blood products.
Based on the above, could you clarify, in your progress note, which of the following is the most likely type of anemia you are evaluating, monitoring and/or treating?
Acute blood loss anemia with baseline chronic macrocytic anemia
Chronic macrocytic anemia only
Other
Use of terms such as suspected, likely, concern for, or probable (associated with a specific diagnosis that is being evaluated, monitored, or treated as if it exists) are acceptable and can be coded in the inpatient setting, when documented at the
time of discharge.
Thank you,
Brandy Garcia RN BSN
CDI Specialist
tiger text
Please use your independent medical judgment in providing your response.
--- NOTE | 2025-03-29 11:02 | W.PN.ID1 ---
Date of Service
Date of Service: March 29, 2025
Today's Communication
Continue Unasyn.
Assessment / Plan
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
# Klebsiella bacteremia - source
# Transplant kidney pyelonephritis with Klebsiella and E. faecalis
# Obstructive uropathy of transplant kidney, esteves placed 03/15
# Fever - resolved
# Leukocytosis - steroids
# s/p Shock
-03/20 Repeat bcx's negative
-03/18 Ucx: Klebsiella and Enterococcus
-Continue Unasyn (d1), renally dosed
# Acute hypoxemic respiratory failure - intubated 03/21; extubated 03/25
- Pulm edema superimposed on chronic inflammatory interstitial pneumonitis.
- probnp [id number]
- Remains on steroid
# ELIZABETH on CKD
- HD started 03/20
- Now on CRRT due to hypotension during HD
# Conditions present on admission
donor renal transplant on mycophenolate, belatacept, prednisone 2.5 twice daily 2018
Atrial fibrillation
Post-COVID chronic inflammatory interstitial pneumonitis
Hypertension
BPH
Postherpetic neuralgia
Chronic back pain
Chief Complaint
-: UTI
Subjective / Review of Systems
No new complaints.
Vital Signs / Physical Exam
Vital Signs
Vital Signs
Temp Pulse Resp BP Pulse Ox
96.3 F L 96 19 140/63 93
03/29/25 07:30 03/29/25 09:00 03/29/25 09:00 03/28/25 19:22 03/29/25 09:00
Physical Exam
Constitutional: Comfortable
Eyes: Sclera Anicteric
Gastrointestinal: Soft, Non Tender and Non Distended
Genito-Urinary: Esteves and Hematuria
Extremities: Negative Edema
Neurological: AO x 3
Objective Data
Lab Data
Lab Results
03/29/25 02:46
03/29/25 02:46
ESR 79 mm/hour (0-20) H 03/29/25 02:46
PT 17.8 Sec (11.4-14.6) H 03/24/25 04:05
INR 1.44 03/24/25 04:05
APTT 26.8 Sec (23.4-35.0) 03/24/25 04:05
Estimated Creat Clear 14 ml/min 03/29/25 02:46
Lactic Acid 1.2 mmol/L (0.7-2.0) 03/19/25 23:40
Total Bilirubin 4.2 mg/dl (0.2-1.3) H 03/28/25 03:27
AST 22 U/L (17-59) 03/28/25 03:27
ALT 34 U/L (0-50) 03/28/25 03:27
Alkaline Phosphatase 82 U/L (38-126) 03/28/25 03:27
C-Reactive Protein 250.80 mg/L (0.0-10.00) H 03/29/25 02:46
Most recent labs reviewed.
Micro Results:
03/20/25 05:07 Blood Culture - Final
Blood/Venous No Growth - Final Report
03/20/25 05:34 Blood Culture - Final
Blood/Venous No Growth - Final Report
03/18/25 18:13 Urine Culture - Final
Urine Klebsiella pneumoniae
Enterococcus faecalis
03/18/25 17:02 Blood Culture - Final
Blood/Venous Klebsiella pneumoniae
Gram Stain - Final
03/18/25 17:01 Blood Culture - Final
Blood/Venous Klebsiella pneumoniae
Gram Stain - Final
03/18/25 23:17 MRSA Screen - Final
Nose No Methicillin Resistant Staphylococcus aureus isolated.
11/06/25 17:03 Influenza Types A & B (NOLVIA) - Final
Nasal Swab Negative for Influenza A & B, NAAT
Negative results must be combined with clinical observations
and patient history.
Nucleic Acid Amplification test (NAAT)performed on the
Ceannate platform.
03/28/[address]: Mild pneumomediastinum, with superior extension into the fat at the base of the neck, as well as at the posterior and lateral aspect of the right mid to upper thorax. Diffuse bilateral interstitial and groundglass opacity. This
could be related to fluid associated with interstitial and pulmonary edema related to volume overload or congestive heart failure. Alternatively, findings may be infectious in nature related to atypical or viral pneumonitis. No focal dense
consolidation.
03/20/25 CXR: Grossly stable severe diffuse bilateral interstitial and airspace disease which may reflect combination of pulmonary edema and pneumonia. Cannot rule out component of underlying chronic interstitial lung disease.
03/19/25 CXR: Progressive parenchymal disease process, as described. Differential includes progressive congestive heart failure with pulmonary edema versus diffuse bilateral pneumonia, right greater than left.
03/18/25 CT a/p: Severe acute edema and inflammation around the right lower quadrant renal transplant which is new from 12/17/2024. Severe hydronephrosis of the right intrarenal collecting system and right renal pelvis which has increased. ACUTE
PYELONEPHRITIS of the RIGHT LOWER QUADRANT RENAL TRANSPLANT is considered most likely. Acute infarction of the renal transplant is a less likely diagnostic possibility. Severe diffuse urinary bladder wall thickening with surrounding perivesical
inflammation which appears new from 12/17/2024 suggesting SEVERE ACUTE CYSTITIS. Esteves catheter in the urinary bladder. Mildly enlarged prostate gland.
[2025-03-29] MEDS: RFP-401 HD Soln (K+ 4 mEq/L) 15000 ML CRRT-IRR (11:07)
[2025-03-29] MEDS: ELIQUIS 2.5 MG TUBE (11:28)
[2025-03-29] MEDS: UNASYN IV (11:28)
--- NOTE | 2025-03-29 11:43 | W.PN.UPDATE ---
Update Note
Progress Note Update
CRRT note:
Patient seen on CRRT
Systolic blood pressure stable off pressors
UF set to even
Replacement rate at 2 L/h
4K bath
Sequential labs ordered every 6 hour intervals
[2025-03-29 11:51] LABS: Glucose - Point of Care 223 mg/dl (70-99)
--- NOTE | 2025-03-29 12:50 | PTOTSP ---
Speech Therapy FEES:
Patient presents with moderate pharyngeal dysphagia. Silent aspiration occurred with mildly thick liquids and responsive aspiration occurred with thin liquids. A chin tuck was attempted to prevent aspiration, however patient unable to follow command
for compensatory strategy. Reflexive and cued coughs were weak and ineffective at clearing material from the airway. Mild-moderate residue occurred, which was greatest with mildly thick liquids. No penetration/aspiration occurred with moderately
thick liquids or puree. Suspect etiology of swallow function related to recent extubation and overall deconditioning
Recommend:
1. IDDSI 4 (puree) and IDDSI 3 (moderately thick liquids)
2. Medications whole vs crushed in puree
3. Allow single sips of thin water as tolerated if Sp02 >90% and RR <30 per Aspiration Risk Hydration Protocol (given supervision)
4. Oral care 4x/day with suctioning as needed
5. CROP GRAIN OR LIVESTOCK FARM MANAGER to follow to to monitor tolerance of diet s/p initiation and to determine if/when patient would benefit from additional imaging prior to diet advancement
--- NOTE | 2025-03-29 13:02 | W.PN.UPDATE ---
Update Note
Progress Note Update
Patient clotted folder within an hour and 40 minutes of initiating CRRT
We will discontinue his Eliquis and put him on cardiac heparin drip protocol due to clotting of filter on CRRT
Discussed with catheter finisher and inspector and ICU nursing staff
[2025-03-29] MEDS: NOVOLOG FLEXPEN-LOW RESISTANCE 2 UNITS SC (13:04)
--- NOTE | 2025-03-29 13:10 | PTCARENOTE ---
Addendum entered by Stephanie Laguna RN 03/29/25 16:39:
Quickly after starting CRRT, had to switch red/blue connection due to continuing to pull air on access side, despite patient position. Both ports flush easily.
Original Note:
CRRT began as ordered at 1040. High pressure alarms [id number] in. Both ports with large clotting present. Some blood returned and Nephrology notified. Plan to start heparin gtt. Awaiting orders.
[2025-03-29] MEDS: HEPARIN 25000 UNITS/250 ML IV (13:14)
--- NOTE | 2025-03-29 13:30 | PTCARENOTE ---
Heparin gtt started as ordered.
--- NOTE | 2025-03-29 13:30 | WOUNDNOTE ---
[facility] RN note: Patient admitted with 03/18 with fever
See H&P for complete history.
PMH: Renal transplan 2019, Afib and on Eliquis, HTN, BPH. Patient currently receiving CRRT.
Wound Location and type/assessment: Patient with DTI noted by staff on 03/25. Wound appears to have evolved into a stage 2 PI. Please see work list for measurement and description. RN Harsha had appropriately cleaned wound and applied Calazime and
foam dressing. Heels intact and adhesive foam applied.
Appetite: Currently on tube feedings, swallowing to be evaluated.
Pressure redistribution devices in place: Centrella Max Air, turning schedule, keep heels off-loaded with pillow or air cushion under calves.
Plan: Continue with local wound care with Calazime and sacral foam. Patient has several comorbidities including renal failure. Wounds may worsen and new wounds may develop , even with optimal care. Will confirm orders with hospitalist and update
nurse. Updated care plan and will follow as needed.
Note to case management of equipment requested for discharge:
Recommend follow up at wound care center upon discharge.
--- NOTE | 2025-03-29 13:30 | CON.CAR ---
Addendum entered and electronically signed by Jaclyn Morgan MD 03/29/25 18:36:
I saw and evaluated the patient, and I provided the substantive portion of the medical decision making.
I reviewed and agree with the note by CHARLOTTE Chavez and it accurately reflects our care.
I personally performed the medical decision making of the this encounter and my assessment and plan is below:
79-year-old male with a past medical history of aortic stenosis, hypertension, dyslipidemia and end-stage renal disease status post renal transplant recently showing signs of rejection, permanent atrial fibrillation on Eliquis and urinary retention
initially presented with fever chills and weakness. Overall presentation was consistent with septic shock in the setting of pyelonephritis. He required aggressive resuscitation with fluids, antibiotics and vasopressors. He had been intubated for
acute hypoxic respiratory failure. He required HD for ELIZABETH but did not tolerate this hemodynamically so was transition to CRRT. Echocardiogram shows severe aortic stenosis with normal LVEF now. AnemiaWith a hemoglobin down to 6.3 was noted. This
was felt to be due to NG tube trauma and critical illness resulting in significant epi stay 6. ENT was consulted and packed the left NC with rapid Rhino balloon packing from 03/24 to 03/26. We are asked to weigh in as imaging has showed bilateral
interstitial opacities with basal predominance and interseptal thickening suggestive of pulmonary edema versus interstitial lung process on CT scan. Additionally the concern for his inability to tolerate HD raises the issue of possible poor cardiac
output in the setting of severe aortic stenosis. Right heart catheterization is being considered and we are asked if this could be helpful. Currently he is feeling tired but bit better. He has had light sensitivity. On exam he appears
chronically ill and cachectic. Vital signs show a ~12 kg weight loss since admission. I do not appreciate any peripheral edema or JVP although an IJ catheter is in place. Lungs sound diminished but no tierney wheezes rales or rhonchi. Irregularly
irregular rate and rhythm with caudally displaced breath sounds. Harsh systolic murmur auscultated.
Echocardiogram from 03/23/2025 noted normal LVEF, severe aortic stenosis with a mean gradient 39 estimated SHU 0.46 however this was at the time of severe anemia with a hemoglobin of 7.5.
Assessment and plan:
Acute hypoxic respiratory failure: Question of heart failure versus interstitial lung process. His weight is down, but, pulmonary not convinced there is lung disease enough to explain his findings. In this setting, right heart catheterization
would be helpful to establish cardiogenic edema from a noncardiogenic event. Certainly his severe aortic stenosis may be playing a role in poor cardiac output.
Septic shock, in the setting of pyelonephritis and Klebsiella: No longer receiving vasopressor pressor support. Care per medicine, ID and mercury cracking tester
Acute on chronic kidney disease: Initially tolerated HD now on CRRT. Nephrology following
Severe aortic stenosis: Certainly gradients may be worse than actual given severe anemia. However I did review the images and findings do appear consistent with severe aortic stenosis. Currently, not a candidate for any intervention given ongoing
treatment of sepsis. Not certain mortality is greater than a year at this junction. Will need to consider as recovery progresses.
Permanent atrial fibrillation: Rate controlled currently on a heparin drip rather than Eliquis given issues with his CRRT catheter.
Anemia: New but stable, care per medicine.
Would make n.p.o. after midnight now to schedule for right heart catheterization. Patient is agreeable. However I did reach out to his but received no answer. I left a message. Plan discussed with Dr. Thorne.
Original Note:
Consultation
Consultation Request
Date/Time Consultation Requested: 03/29/25 1252
Date/Time Consultation Performed: 03/29/25 1330
Requesting Provider: Dr. Thorne
Performing Provider: Rhea PORTER for Dr. Morgan
Reason for Consultation: aortic stenosis
Medical History
-
Chief Complaint: fever/chills/weakness
History of Present Illness:
79 y/o male (cardiology patient of Dr. Paredes) with aortic stenosis (previously moderate, now severe in setting of anemia), hypertension, dyslipidemia, ESRD with hx renal transplant (recently showing signs of transplant rejection per chart),
permanent AFIB on Eliquis, and urinary retention with recent catheter placement who initially presented with fever, weakness, and chills on 03/18/25. He was diagnosed with septic shock in the setting of pyelonephritis. He has required fluids,
antibiotics, and pressors. He was intubated and ventilated for acute, hypoxic respiratory failure. Additionally, he is seen to have ELIZABETH and is on CRRT, as there were issues with hemodynamics with HD. He had anemia with hgb as low as 6.3 and required
blood products. He had epistaxis and was packed by ENT. He was off Eliquis- then resumed this AM, now on heparin. We are consulted since echo showed severe and there is question of volume status, and consideration for RHC.
Past Medical History
Past Medical History: Arrhythmias, HTN, Hypercholesterolemia, Renal Failure and Valvular Disease
Social History
Tobacco: Former Smoker
Family History
Family History: Hypertension
Allergies / Home Medications
Allergy/AdvReac Type Severity Reaction Status Date / Time
No Known Drug Allergies Allergy - Verified 03/18/25 16:11
�Medication �Instructions �Recorded �Confirmed �Type
apixaban 5 mg tablet (Eliquis) 5 mg PO BID Blood Clot 08/11/18 03/19/25 History
Prevention/Tx
metoprolol tartrate 25 mg tablet 25 mg PO BID Blood Pressure 03/14/20 03/19/25 History
mycophenolate sodium 180 mg 720 mg PO BID Transplant 03/14/20 03/19/25 History
tablet,delayed release
amlodipine 5 mg tablet 5 mg PO DAILY Blood Pressure 10/04/22 03/19/25 History
cholecalciferol (vitamin D3) 10 10 mcg PO DAILY Supplement 10/04/22 03/19/25 History
mcg (400 unit) capsule (Vitamin D3)
belatacept 250 mg intravenous 450 mg IV QMONTH Transplant 07/22/23 03/19/25 History
solution
doxazosin 2 mg tablet 2 mg PO BID Urinary Issue 07/22/23 03/19/25 History
losartan 50 mg tablet 50 mg PO BID Blood Pressure 07/22/23 03/19/25 History
prednisone 2.5 mg tablet 2.5 mg PO BID Transplant 07/22/23 03/19/25 History
therapeutic multivitamin 1 tab PO DAILY Supplement 07/22/23 03/19/25 History
torsemide 5 mg tablet 5 mg PO SUWE Fluid 02/12/25 03/19/25 History
Retention/Swelling
fluticasone propionate 50 1 spray intranasal BID Allergies 03/24/25 03/24/25 History
mcg/actuation nasal
spray,suspension
sodium chloride 0.65 % nasal spray 2 spray intranasal QID Allergies 03/24/25 03/24/25 History
aerosol
Review of Systems
-
History Source: Patient and Other (and chart)
Constitutional: Fever, Chills and Other (weakness)
Respiratory: Trouble Breathing
Physical Exam
Vital Signs
Temp Pulse Resp BP Pulse Ox
96.2 F L 96 19 140/63 93
03/29/25 12:00 03/29/25 09:00 03/29/25 09:00 03/28/25 19:22 03/29/25 09:00
Lab Results
03/29/25 02:46
03/29/25 17:00
Wkf-U-Pxaegllfgvj Pept 11018 pg/ml 03/28/25 03:28
Physical Exam
General: Well Developed and No Apparent Distress
HEENT: Normocephalic and Anicteric
Respiratory: Other (on O2 by NC, increased RR)
Cardiac: Irregular Rhythm and Murmur (III/ systolic murmur)
Musculoskeletal: No Edema
Neuro: Awake and Alert
Psych: Calm
Impression / Plan
-
Septic shock, in setting of pyelonephrosis:
-received IVF, no longer on pressors
-ID following, on antibiotics
Acute respiratory failure:
-now extubated, on O2 by NC, mildly increased WOB on my assessment
-CT scan 03/28/25: Mild pneumomediastinum, with superior extension into the fat at the base of the neck, as well as at the posterior and lateral aspect of the right mid to upper thorax. Diffuse bilateral interstitial and groundglass opacity. This
could be related to fluid associated with interstitial and pulmonary edema related to volume overload or congestive heart failure. Alternatively, findings may be infectious in nature related to atypical or viral pneumonitis. No focal dense
consolidation. On IV steroids. On IV abx.
-does not appear obviously volume overloaded to assessment (weight down significantly, no edema), but does have severe and has received fluids/blood products/meds.
-he is getting CRRT
-RHC is being considered and we can help facilitate
ELIZABETH, hx kidney transplant with evidence for rejection, hydronephrosis with Disla:
-had hemodynamic instability on HD, now for CRRT
-nephrology is on the case
Aortic stenosis, severe:
-in setting of anemia
-Echo 03/23/25: Normal biventricular size and systolic function. Severe aortic stenosis, mean 39 mmHg and estimated SHU 0.46 cmsq. Aortic valve assessment may be affected by anemia (Hgb 7.5). Severe left atrial enlargement. Compared to
echocardiogram dated 05/19/2024 the gradient across the aortic valve has increased from 29 mmHg, the aortic valve area was estimated at 0.9 cmsq. The Hgb in 05/2024 was 15.
-possible volume assessment as above
Permanent AFIB:
-On heparin drip rather than Eliquis (per nephro since patient had clotting with initiation of CRRT)
-on metoprolol, rate currently controlled- follow telemetry
-follow telemetry
Anemia:
-improved
-monitor closely now back on AC
Data Reviewed
-
EKG: Tracing Personally Visualized and interpreted (AFIB 100 BPM)
CT Scan: Report Reviewed by me (CT scan as noted)
Medical Tests (Nuc Med, Echo etc): Report Reviewed by me (echo as noted)
Labs: Labs Reviewed by me
--- NOTE | 2025-03-29 16:02 | W.PN.HOSP.TC ---
Today's Communication/Plan
-
Assessment / Plan
Assessment / Plan
General: No Apparent Distress
HEENT: NormoCephalic, Moist mucous membranes,
Respiratory: Rhonchi's, nasal cannula, R chest wall HD catheter noted
Cardiac: S1/S2, Regular Rhythm and Murmur (3 out of 6 systolic murmur)
GI: Soft, Non Tender, Non Distended and Normal Bowel Sounds;
Rectal: Deferred by Provider
-esteves
Skin: No Rash
Neuro: AAO x 3
79-year-old with history of end-stage renal disease status post kidney transplant 2018 on antirejection medications, hypertension, hyperlipidemia, atrial fibrillation on , urinary retention status post catheter placement on Saturday presenting
to the emergency department with fever and chills as well as weakness. CT scan consistent with transplant pyelonephritis. He still has persistent hydro which likely reflects chronic hydro compared to his prior ultrasound. Known anemia. Picture
consistent with pyelonephritis with bandemia and lactic acidemia consistent with sepsis.
PLAN:
Acute hypoxic respiratory failure likely Multifactorial secondary to pulmonary edema versus pneumonia versus interstitial lung disease
Status post intubation and on mechanical ventilation. S/p extubation 03/25. Still hypoxic and is on nonrebreather. Discussed with patient and he wants to be full code. [employer] also discussed with patient and family and they wanted to be full
code.
On IV steroid, Weaning
-wean sedation/sbt as tolerated
-Already on antibiotics.
-Repeat echo 03/23 with severe , normal EF
-[employer] following
Sepsis shock associated with acute kidney injury, lactic acidosis secondary to Klebsiella bacteremia likely secondary to urinary tract infection
suspected acute pulm edema
- Status post 30 mL/kg crystalloid in ED
- Blood cultures with Klebsiella identification noted. Urine culture also positive for Klebsiella. Repeat surveillance cultures negative so far
- Status post IV cefepime. Now on IV Unasyn.
- some component of shock could be related to sedation.Currently on phenylephrine, wean as tolerated. went hypotensive and tachycardic with HD
- ID following
nephrology rec to hold celcept for now
Epistaxis
Evaluated by ENT, status post left NC packing. now removed. Appears deviated septum per ENT. Monitor
Toxic metabolic encephalopathy likely secondary to shock versus ICU delirium versus hypoxemia versus uremia
appears to be improving when off sedation
Hydronephrosis - Resolving, cannot rule out post obstructive polyuria. Catheter placed by Dr. Jim as outpatient.
- maintain urinary catheter for now
- patient denies any alpha blockade but considering TURP
- monitor i/os
- f/u u/s after tx of elizabeth
- continue cardura with hold parameters when able
ELIZABETH only- Persistent ELIZABETH despite Esteves placement. Recent Treatment for rejection in December.
Metabolic acidosis
- Status post IV fluids with bicarbonate.
- Status post diuretics
- avoid nephrotoxins and renal dose medications
- Patient started on dialysis on 03/20/2025. cw HD per nephrology
- Volume removal should help with hypoxemia.
donor renal transplant 2019 from [facility]
- cellcept on hold per nephrology. On IV steroids
now on HD
Anemia - Macrocytic anemia, recent normal sats but given IV iron infusion without improvement. Denies melena. Colonoscopy November ->single non-bleeding colonic angioectasia and internal hemorrhoids. On eliquis.
- Ferritin level elevated. Hemoglobin Now 8.2. Received blood transfusion this hospitalization
- type and screen and trend H&H for now
- Transfuse hgb <7
Eliquis on hold
Thrombocytopenia likely secondary to septic shock
-Continue to trend platelets.
AFIB Permanent
- holding eliquis . BB held with shock.
Elevated heart rate today, continue to monitor.
DVT PPX - SCD's
Code status - Full Code
Remians critically ill
Anticipated Discharge: > 48 hours
Subjective/Interval History
-
Date of Service: March 29, 2025
seen and examined.
no new complaints.
Objective Data
-
Labs:
Laboratory Results
03/29/25 03/29/25
17:00 19:30
APTT Pending
Sodium Cancelled
Potassium Cancelled
Chloride Cancelled
Carbon Dioxide Cancelled
BUN Cancelled
Creatinine Cancelled
Glucose Cancelled
Calcium Cancelled
Vital Signs:
Vital Signs
Temp Pulse Resp BP Pulse Ox
96.2 F L 91 18 140/63 92
03/29/25 12:00 03/29/25 14:00 03/29/25 14:00 03/28/25 19:22 03/29/25 14:00
I&O
03/28/25 03/29/25 03/30/25
06:59 06:59 06:59
Intake Total 355 / 365 725 / 1060 744 / 744
Output Total 860 / 860 860 / 860 330 / 330
Balance -505 / -495 -135 / 200 414 / 414
--- NOTE | 2025-03-29 16:16 | CM ---
Did not tolerate HD sessions. Now on CRRT. Fees study done and showed moderate pharyngeal dysphagia with silent aspiration. Rec moderately thick liquids and puree diet. Discharge POC: Await therapy evaluation.
--- NOTE | 2025-03-29 16:41 | PTCARENOTE ---
Restarted CRRT at 1600. Immediately pulling air on access side. Changed red/blue access with same results. Dr. Arguelles to bedside to observe problem. Order given to return blood. Plan to replace HD cath tomorrow in IR to reattempt CRRT.
[2025-03-29] MEDS: HEPARIN 1200 UNITS INTRACATH (17:43)
[2025-03-29] MEDS: HEPARIN 1000 UNITS INTRACATH (17:44)
[2025-03-29] MEDS: NOVOLOG FLEXPEN-LOW RESISTANCE 1 UNITS SC (17:56)
[2025-03-29 18:02] LABS: Glucose - Point of Care 182 mg/dl (70-99)
[2025-03-29 19:10] VITALS: BP 134/99
[2025-03-29 20:00] VITALS: BP 123/75
[2025-03-29 20:16] LABS: APTT 38.2 Sec (23.4-35.0)
[2025-03-29 21:02] VITALS: BP 141/72
[2025-03-29] MEDS: MELATONIN 5 MG PO (21:09)
[2025-03-29] MEDS: VALIUM INJECTION 5 MG IV (21:10)
--- NOTE | 2025-03-29 21:55 | PTCARENOTE ---
Received pt from previous RN. Pt is AAOx3, drowsy @ times, ONEIDA, forgetful, anxious, garbled/slow speech. Afib/Aflutter w/ PVCs on the monitor. Pt on 4L midflow O2 sat 95%, lungs diminished/coarse, non-productive cough. Dobhoff @ 65 cm in the right
nare, nepro @ 20 ml/hr, 25 ml NSS water flush Q4, pt with poor appetite. Disla in place, sarah/blood tinged, hygiene provided. NPO @ 0000. Heparin gtt (see worklist). Mouth care and CHG bath provided. Call tao in reach. Safe environment maintained.
[2025-03-29 22:00] VITALS: BP 122/78
[2025-03-29 23:00] VITALS: BP 135/88
[2025-03-29] MEDS: NOVOLOG FLEXPEN-MODERATE RESISTANCE 5 UNITS SC (23:44)
[2025-03-29 23:47] LABS: Glucose - Point of Care 288 mg/dl (70-99)
--- NOTE | 2025-03-29 23:53 | PTCARENOTE ---
Systems reviewed, no new changes in assessment. Call tao in reach. Safe environment maintained.
[2025-03-30] VITALS (25 sets, daily range): BP systolic 132–162; BP diastolic 73–109; PULSE 96; O2SAT 97; BMI 20.6
--- NOTE | 2025-03-30 02:48 | PTCARENOTE ---
Systems reviewed, no new changes in assessment. AM labs provided. Call tao in reach. Safe environment maintained.
[2025-03-30 02:56] LABS: APTT 36.2 Sec (23.4-35.0)
[2025-03-30 03:09] LABS: Hematocrit 27.9 % (39.0-52.0); Hemoglobin 8.8 g/dL (13.0-18.0); Mean Corp Hgb Conc. 31.5 g/dL (33.0-37.0); Mean Corpuscular Volume 95.2 fL (80.0-94.0); Platelet Count 195 10^3/uL (130-400); Red Cell Dist. Width 15.9 % (11.5-14.5)
[2025-03-30 03:40] LABS: Blood Urea Nitrogen 151 mg/dl (9-20); Calcium 8.4 mg/dl (8.4-10.2); Carbon Dioxide 21 mmol/L (22-30); Chloride 105 mmol/L (98-107); Estimated Creatinine Clearance 15 ml/min; Glucose 222 mg/dl (70-99); Magnesium 2.6 mg/dl (1.6-2.3); Potassium 4.0 mmol/L (3.5-5.1); Sodium 140 mmol/L (135-145); eGFR 15.43
[2025-03-30] MEDS: SOLU-MEDROL PF 40 MG IV (05:21)
[2025-03-30] MEDS: NOVOLOG FLEXPEN-MODERATE RESISTANCE 3 UNITS SC ×2 (05:23→11:52)
[2025-03-30 05:30] LABS: Glucose - Point of Care 215 mg/dl (70-99)
[2025-03-30] MEDS: LOPRESSOR 25 MG PO ×2 (07:21→19:38)
[2025-03-30] MEDS: BACTROBAN 2% OINTMENT 1 APPLIC NASAL ×2 (07:21→19:39)
[2025-03-30] MEDS: SENOKOT-S TUBE (07:21)
[2025-03-30] MEDS: MIRALAX TUBE (07:21)
--- NOTE | 2025-03-30 08:20 | PTCARENOTE ---
Received pt from previous RN. Pt is AAOx3, UNGA, drowsy, slow speech, calm. Afib/Aflutter w/ PVCs on the monitor. Received pt on RA with SpO2 94%, lungs diminished. Dobhoff in the right nare at 65 cm, Nepro on hold for possible right heart cath.
Disla in place, cola colored urine, hygiene provided. Pt incontinent of loose BM. Mouth care provided. Plan to exchange HD cath. Call tao in reach. Safe environment maintained.
--- NOTE | 2025-03-30 09:09 | W.PN.NEPH.PH ---
Today's Communication / Plan
-
HD catheter replacement
Right heart cath
Possible CRRT or HD today
Assessment/Plan
-
This is a 79-year-old gentleman who follows in our office with Dr. Muhammad after donor renal transplant [address] [facility]. His transplant course has been complicated by development of nephrotic range proteinuria as well as recent
cellular rejection December of this year. The episodes treated with Solu-Medrol. His creatinine has risen quickly over time in the last several months. He has gone from a creatinine around 2 now up to 4.4. He was noted to have hydronephrosis of
the transplanted kidney recently on ultrasound as well as CT scan. Esteves catheter was placed by urology a few days ago. His appetite has been poor as of late. Recently he also developed fever and malaise and this has brought him to the emergency
room. He was noted to be febrile in the ER. Blood pressure was stable though lower than his home readings of 132. He was 100 systolic in the ER. Creatinine was 4.7 with elevated lactate level and elevated white count. CT of the abdomen and
pelvis were performed with suspicion for pyelonephritis of the transplant. We are asked to assist in management of his renal issues.
Assessment
Sepsis syndrome, possible pyelonephritis
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
donor renal transplant with FSGS, recent T-cell rejection
Obstructive uropathy, Esteves catheter in place
ELIZABETH..
Anemia
Hyponatremia
lactic acidosis
NEWS INTERN-He had been making outpatient arrangements for eventual ESRD and transplant evaluation at [place]/previously on peritoneal dialysis prior to transfer
Plan
ELIZABETH-progressive in setting of sepsis
now on HD,variable UOP and cr increasing , BUN greater than 140
Bp stable off pressors
continue steroid per pulmonary,now on IV, off MMF
mild hematuria with esteves-monitor
improving O2 requirements has underlying interstitial lung disease, reviewed CT chest
volume off did not help much in resp status, steroid changed to iV
echo noted severe but in setting of anemia,
if no improvement in resp status likely need RHC
case reviewed with pulm , plan CRRT today or possibly HD, once catheter placed back in, catheter was not functioning well yesterday and requested IR to replace
Depending on timing of right heart cath and catheter dialysis may be pushed off until tomorrow
Patient for right heart cath today which will help provide guidance with volume removal
Chest x-ray personally reviewed notable for interstitial lung changes
abx per ID
dose meds renally
recent epistaxis managed by ENT, h/h stable
Dr. Muhammad who has reached out to his on 03/25 and reviewed the case in detail
CC time spent 31min
-
-
Date of Service: March 30, 2025
CC / HPI / ROS
-
Chief Complaint:
Sepsis
History of Present Illness:
Acute kidney injury multifactorial obstructive uropathy, sepsis
remains off pressors
extubated 03/25, on NC mid flow 8lit
hb 9.3 stable, 1 PRBC on 03/22
wt is stable
Creatinine at 3.8 but BUN around 151
Review of Systems:
non oliguric with esteves
no fever, improving
no pain , cough +
Weights down
Labs
-
Labs:
WBC 17.7 10^3/uL (4.8-10.8) H 03/30/25 02:36
RBC 2.93 10^6/uL (4.70-6.10) L 03/30/25 02:36
Hgb 8.8 g/dL (13.0-18.0) L 03/30/25 02:36
Hct 27.9 % (39.0-52.0) L 03/30/25 02:36
Plt Count 195 10^3/uL (130-400) 03/30/25 02:36
Sodium 140 mmol/L (135-145) 03/30/25 02:36
Potassium 4.0 mmol/L (3.5-5.1) 03/30/25 02:36
Chloride 105 mmol/L (98-107) 03/30/25 02:36
Carbon Dioxide 21 mmol/L (22-30) L 03/30/25 02:36
BUN 151 mg/dl (9-20) H* 03/30/25 02:36
Creatinine 3.8 mg/dL (0.7-1.3) H 03/30/25 02:36
eGFR 15.43 03/30/25 02:36
Glucose 222 mg/dl (70-99) H 03/30/25 02:36
Calcium 8.4 mg/dl (8.4-10.2) 03/30/25 02:36
Phosphorus Cancelled 03/29/25 17:00
Wke-Z-Hxxneytyhxj Pept 79070 pg/ml 03/28/25 03:28
Albumin 2.8 g/dl (3.5-5.0) L 03/28/25 03:27
Physical Exam
-
Vital Signs:
Vital Signs
Temp Pulse Resp BP Pulse Ox
97.4 F 98 20 143/90 96
03/30/25 08:08 03/30/25 08:00 03/30/25 08:00 03/30/25 08:00 03/30/25 08:00
Cardiovascular:: Regular rate and rhythm
Respiratory:: Bilateral: Coarse
Lung Excursion:: Abnormal
Abdomen:: Nontender and Soft
Extremity Edema:: None: Bilateral:
Esteves Catheter: Yes
Other Findings::
Feeding tube
right IJ catheter
[2025-03-30 09:14] LABS: APTT 45.9 Sec (23.4-35.0)
--- NOTE | 2025-03-30 09:24 | W.PN.ID1 ---
Date of Service
Date of Service: March 30, 2025
Today's Communication
Continue Unasyn
Assessment / Plan
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
# Transplant kidney pyelonephritis with Klebsiella and E. faecalis
# Klebsiella bacteremia - source
# Obstructive uropathy of transplant kidney, esteves placed 03/15
# Fever - resolved
# Leukocytosis - due steroids
# s/p Shock
-03/20 Repeat bcx's negative
-03/18 Ucx: Klebsiella and Enterococcus
-Continue Unasyn (d1), renally dosed
# Acute hypoxemic respiratory failure - intubated 03/21; extubated 03/25
- Pulm edema +/- chronic inflammatory interstitial pneumonitis.
-TTE severe aortic stenosis, progressed
- For RHC
- Remains on steroid
# ELIZABETH on CKD
- HD started 03/20
- CRRT on hold due to clotted
# Conditions present on admission
donor renal transplant on mycophenolate, belatacept, prednisone 2.5 twice daily 2018
Atrial fibrillation
Post-COVID chronic inflammatory interstitial pneumonitis
Severe aortic stenosis
Hypertension
BPH
Postherpetic neuralgia
Chronic back pain
Chief Complaint
-: UTI
Subjective / Review of Systems
SOB better.
Vital Signs / Physical Exam
Vital Signs
Vital Signs
Temp Pulse Resp BP Pulse Ox
97.4 F 98 20 143/90 96
03/30/25 08:08 03/30/25 08:00 03/30/25 08:00 03/30/25 08:00 03/30/25 08:00
Physical Exam
Constitutional: Comfortable
Eyes: No Conjunctival Hemorrhage and Sclera Anicteric
Pulmonary: Rales
Gastrointestinal: Soft, Non Tender, Non Distended and Normal Bowel Sounds
Genito-Urinary: Esteves; Negative CVA Tenderness
Extremities: Negative Edema
Neurological: AO x 3
Objective Data
Lab Data
Lab Results
03/30/25 02:36
03/30/25 02:36
ESR 79 mm/hour (0-20) H 03/29/25 02:46
PT 17.8 Sec (11.4-14.6) H 03/24/25 04:05
INR 1.44 03/24/25 04:05
APTT 45.9 Sec (23.4-35.0) H 03/30/25 08:56
Estimated Creat Clear 15 ml/min 03/30/25 02:36
Lactic Acid 1.2 mmol/L (0.7-2.0) 03/19/25 23:40
Total Bilirubin 4.2 mg/dl (0.2-1.3) H 03/28/25 03:27
AST 22 U/L (17-59) 03/28/25 03:27
ALT 34 U/L (0-50) 03/28/25 03:27
Alkaline Phosphatase 82 U/L (38-126) 03/28/25 03:27
C-Reactive Protein 250.80 mg/L (0.0-10.00) H 03/29/25 02:46
Most recent labs reviewed.
Micro Results:
03/20/25 05:07 Blood Culture - Final
Blood/Venous No Growth - Final Report
03/20/25 05:34 Blood Culture - Final
Blood/Venous No Growth - Final Report
03/18/25 18:13 Urine Culture - Final
Urine Klebsiella pneumoniae
Enterococcus faecalis
03/18/25 17:02 Blood Culture - Final
Blood/Venous Klebsiella pneumoniae
Gram Stain - Final
03/18/25 17:01 Blood Culture - Final
Blood/Venous Klebsiella pneumoniae
Gram Stain - Final
03/18/25 23:17 MRSA Screen - Final
Nose No Methicillin Resistant Staphylococcus aureus isolated.
03/18/25 17:03 Influenza Types A & B (NOLVIA) - Final
Nasal Swab Negative for Influenza A & B, NAAT
Negative results must be combined with clinical observations
and patient history.
Nucleic Acid Amplification test (NAAT)performed on the
[employer] platform.
03/28/[address]: Mild pneumomediastinum, with superior extension into the fat at the base of the neck, as well as at the posterior and lateral aspect of the right mid to upper thorax. Diffuse bilateral interstitial and groundglass opacity. This
could be related to fluid associated with interstitial and pulmonary edema related to volume overload or congestive heart failure. Alternatively, findings may be infectious in nature related to atypical or viral pneumonitis. No focal dense
consolidation.
03/20/25 CXR: Grossly stable severe diffuse bilateral interstitial and airspace disease which may reflect combination of pulmonary edema and pneumonia. Cannot rule out component of underlying chronic interstitial lung disease.
03/19/25 CXR: Progressive parenchymal disease process, as described. Differential includes progressive congestive heart failure with pulmonary edema versus diffuse bilateral pneumonia, right greater than left.
03/18/25 CT a/p: Severe acute edema and inflammation around the right lower quadrant renal transplant which is new from 12/17/2024. Severe hydronephrosis of the right intrarenal collecting system and right renal pelvis which has increased. ACUTE
PYELONEPHRITIS of the RIGHT LOWER QUADRANT RENAL TRANSPLANT is considered most likely. Acute infarction of the renal transplant is a less likely diagnostic possibility. Severe diffuse urinary bladder wall thickening with surrounding perivesical
inflammation which appears new from 12/17/2024 suggesting SEVERE ACUTE CYSTITIS. Esteves catheter in the urinary bladder. Mildly enlarged prostate gland.
--- NOTE | 2025-03-30 09:31 | PTCARENOTE ---
Pt to pathology laboratory director for RHC.
[2025-03-30 09:33] LABS: Glycohemoglobin (HgbA1c) 5.8 % (4.0-5.9)
--- NOTE | 2025-03-30 09:49 | ITS.CL.PN ---
Nitroglycerin Neutralizer - Procedure Note
Procedure
Procedure Note:
CARDIAC CATHETERIZATION REPORT
Date of Procedure: 03/30/2025
Referring: Dr. Jaclyn Morgan MD
Indication: cardiogenic shock, acute renal failure
PROCEDURE: right heart catheterization
ACCESS: 5F right antecubital vein (closure: manual hemostasis)
CATHETERS: 5F [place]
MODERATE SEDATION: 25 minutes of moderate sedation was utilized. An independent medical transcriber was present to assist with and help manage the patient's level of consciousness and physiologic status.
HEMODYNAMIC DATA
SBP 117/53 (mean 76) mmHg
RA 5 mmHg
RV 29/4 (EDP 6) mmHg
PA 27/11 (mean 17) mmHg
PCWP 8 mmHg
SaO2 92.0 %
SvO2 41.0 %
Hb 9.2 g/dL
Weight 68.8 kg
CO/CI 3.72/1.97 L/min/m2
SVR 1526 dsc*-5
PVR 2.4 Wood units
CONCLUSION: normal biventricular filling pressures with low cardiac index and elevated SVR consistent with cardiogenic shock in setting of known LFLG severe
RECOMMENDATIONS
1. patient requires no further volume removal and may even by mildly underfilled for his degree of
2. if renal function does not improve over next 24 hours, BAV vs. TAVR should be considered as is likely contributing to his cardiogenic shock. TAVR would be reasonable if infection is felt to be controlled; otherwise would bridge to TAVR with
initial BAV.
Signed: Yuri Larios MD, PhD
--- NOTE | 2025-03-30 10:47 | W.PN.UPDATE ---
Update Note
Progress Note Update
Right heart cath reviewed pulmonary capillary wedge pressure only 8
Henceforth I will hold on dialysis today and hold the dialysis catheter exchange
I will instead provide 1 L of fluid given patient's azotemia and low wedge pressure
Patient is hemodynamically stable at this time and urine output has been stable
--- NOTE | 2025-03-30 10:51 | PTCARENOTE ---
Returned from cath laboratory technician. VS at baseline. A-line removed. Restarted TF and diet. Heparin gtt increased d/t PTT.
[2025-03-30] MEDS: DELTASONE 20 MG PO (11:04)
[2025-03-30] MEDS: NSS 1000 IV (11:04)
[2025-03-30] MEDS: UNASYN IV (11:39)
[2025-03-30 11:49] LABS: Venous Blood Gas B.E. -5.3 mmol/L (-4 to +4); Venous Blood Gas O2 Sat % 96.7 %
[2025-03-30 11:50] LABS: Venous Blood Gas O2 Therapy RA
[2025-03-30 12:02] LABS: Glucose - Point of Care 221 mg/dl (70-99)
[2025-03-30] MEDS: HEPARIN 25000 UNITS/250 ML IV (12:57)
--- NOTE | 2025-03-30 13:46 | W.PN.HOSP.TC ---
Today's Communication/Plan
-
Assessment / Plan
Assessment / Plan
General: No Apparent Distress
HEENT: NormoCephalic, Moist mucous membranes,
Respiratory: Rhonchi's, nasal cannula, R chest wall HD catheter noted
Cardiac: S1/S2, Regular Rhythm and Murmur (3 out of 6 systolic murmur)
GI: Soft, Non Tender, Non Distended and Normal Bowel Sounds;
Rectal: Deferred by Provider
-esteves
Skin: No Rash
Neuro: AAO x 3
79-year-old with history of end-stage renal disease status post kidney transplant 2019 on antirejection medications, hypertension, hyperlipidemia, atrial fibrillation on Eliis, urinary retention status post catheter placement on Saturday presenting
to the emergency department with fever and chills as well as weakness. CT scan consistent with transplant pyelonephritis. He still has persistent hydro which likely reflects chronic hydro compared to his prior ultrasound. Known anemia. Picture
consistent with pyelonephritis with bandemia and lactic acidemia consistent with sepsis.
PLAN:
Acute hypoxic respiratory failure likely Multifactorial secondary to pulmonary edema versus pneumonia versus interstitial lung disease
Exacerbated
Wean oxygen as tolerated
Off IV steroids on oral steroids
S/p right heart cath, wedge 8, signifies that he is dry
Sepsis shock associated with acute kidney injury, lactic acidosis secondary to Klebsiella bacteremia likely secondary to urinary tract infection
suspected acute pulm edema
Pressors remain off
Continue Unasyn
Epistaxis
Evaluated by ENT, status post left NC packing. now removed. Appears deviated septum per ENT. Monitor
Toxic metabolic encephalopathy likely secondary to shock versus ICU delirium versus hypoxemia versus uremia
appears to be improving when off sedation
Hydronephrosis - Resolving, cannot rule out post obstructive polyuria. Catheter placed by Dr. Jim as outpatient.
- maintain urinary catheter for now
- patient denies any alpha blockade but considering TURP
-Still with hematuria however hemoglobin remained stable
- monitor i/os
- f/u u/s after tx of elizabeth
- continue cardura with hold parameters when able
ELIZABETH only- Persistent ELIZABETH despite Esteves placement. Recent Treatment for rejection in December.
Metabolic acidosis
Required hemodialysis has received multiple session
On temporary hemodialysis catheter
Per nephrology hold any further hemodialysis
100 cc/h urinary output
Avoid nephrotoxins hypotension
donor renal transplant 2019 from [facility]
cellcept on hold per nephrology. On IV steroids
Anemia - Macrocytic anemia, recent normal sats but given IV iron infusion without improvement. Denies melena. Colonoscopy November ->single non-bleeding colonic angioectasia and internal hemorrhoids. On eliquis.
- Ferritin level elevated. Hemoglobin Now 8.2. Received blood transfusion this hospitalization
- type and screen and trend H&H for now
- Transfuse hgb <7
Eliquis on hold
Thrombocytopenia likely secondary to septic shock
-Continue to trend platelets.
AFIB Permanent
- holding eliquis . BB held with shock.
Elevated heart rate today, continue to monitor.
DVT PPX - SCD's
Code status - Full Code
Improving
Anticipated Discharge: 24 - 48 hours
Subjective/Interval History
-
Date of Service: March 30, 2025
Seen and examined. No new complaints. No acute overnight events.
Objective Data
-
Labs:
Laboratory Results
03/30/25 03/30/25 03/30/25
02:36 08:56 16:30
WBC 17.7 H
Hgb 8.8 L
Hct 27.9 L
Plt Count 195
APTT 36.2 H 45.9 H Pending
Sodium 140
Potassium 4.0
Chloride 105
Carbon Dioxide 21 L
BUN 151 H*
Creatinine 3.8 H
Glucose 222 H
Calcium 8.4
Vital Signs:
Vital Signs
Temp Pulse Resp BP Pulse Ox
97.4 F 88 28 158/109 93
03/30/25 12:17 03/30/25 12:00 03/30/25 12:00 03/30/25 12:00 03/30/25 12:00
I&O
03/29/25 03/30/25 03/31/25
06:59 06:59 06:59
Intake Total 725 / 1060 1658 / 1690 200 / 200
Output Total 860 / 860 740 / 740 510 / 510
Balance -135 / 200 918 / 950 -310 / -310
--- NOTE | 2025-03-30 14:25 | W.PN.INTV ---
Today's Communication / Plan
Recommendations
- DC IV steroids, switch to prednisone 40 mg daily
- Continue heparin infusion, switch to Eliquis later tonight
- Follow-up chest x-ray in a.m.
Assessment
-
79-year-old male with a 1 pack year smoking history, hypertension, nephrolithiasis, pulmonary nodule, atrial fibrillation, and renal transplantation on mycophenolate and prednisone with recent ultrasound showing transplant hydronephrosis presented
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
#1. Septic shock due to UTI/acute pyelonephritis, with Klebsiella bacteremia
- Off pressors now, hemodynamically stable
- 03/30, normal MAP. Shock resolved
- ID service on case, currently on IV Unasyn.
- Klebsiella and Enterococcus on urine cultures
#2. Acute hypoxic respiratory failure
- Patient was intubated 03/21, extubated 03/25, continues to require supplemental oxygen, overall improving
- Bilateral interstitial opacities, basal predominant with interseptal thickening, suggestive of pulmonary edema versus interstitial lung disease
- Patient has baseline mild reticular changes on imaging suggestive of mild fibrosis, crecent CT was with significant worsening
- Patient has severe aortic stenosis, poor tolerance of HD with significant uremia, fluid overload also was in differential diagnosis
- ILD exacerbation cannot be ruled out, patient empirically started on high-dose IV steroids on 03/28
- 03/30, CRRTRHC with PCWP only 8, also f/u CXR with improved interstitial opacities more suggestive of improving pulmonary edema rather than ILD
- Mild pneumomediastinum noted on imaging, suspect related to intubation and mechanical ventilation, follow-up chest x-ray in a.m.
#3. ELIZABETH with hydronephrosis of transplanted kidney
- Severe pyelonephritis as well as obstructive uropathy with hydronephrosis noted on imaging
- S/p Disla catheter placement, essentially anuric
- No renal recovery noted, patient had been initiated on hemodialysis
- Due to poor tolerance of HD, 03/29, transitioned to CRRT. Line clotted, off CRRT since.
- History of renal transplant in 2019. MMF has been resumed per neprhology service.
- With low PCWP and low filling pressure, and improving CXR, patient receiving 1 ltr IVF
#4. Epistaxis involving left nare s/p rapid Rhino via ENT - rapid rhino removed as of 03/26
- No further epistaxis noted
- Resume Eliquis
#5. History of pulmonary nodules and baseline mild ILD
- Review of prior imaging shows mild reticular changes mostly in the posterior and basal area
- Concerning for chronic ILD versus early fibrotic changes with prior history of COVID-19
- Patient follows up with Dr. Alex at [facility] pulmonary clinic.
- Connective tissue disease panel negative with normal ROXANNE and rheumatoid factor levels.
- Current worsening concerning for volume overload versus ILD exacerbation.
- 03/30, CXR improving. Lower steroids to 40 mg daily with tapering over coming weeks.
#6. Atrial fibrillation with rapid ventricular response
- Continue metoprolol as tolerated
- Resumed Eliquis.
#7. Severe with cardiogenic shock
- RHC 03/2025, PCWP 8, CI 1.9, SVR 1526.
- 03/30. IVF challenge x 1 ltr
- Tentative TAVR vs BAV in coming days if renal function does not recover.
Conditions present prior to admission:
End-stage renal disease status post renal transplantation-[facility] 2018-follows at [facility]-Dr. Hines and locally Dr. Muhammad
Permanent atrial fibrillation/Eliquis.
Hypertension.
BPH.
Postherpetic neuralgia.
Chronic back pain.
Pulmonary nodule right base with negative PET followed by Dr. Olivarez-next CT 02/2025.
Fatty liver.
Inguinal hernia
Osteoporosis.
Hernia repair.
Cataract 2020. Transplant kidney December 2018.
DVT prophylaxis: Eliquis resumed.
Stress ulcer prophylaxis: N/A
FEES 03/29. PO as tolerated
Prognosis unfortunately poor with multiorgan dysfunction-goals of care discussion reviewed on 03/23 with the patient's daughters and with Dr. Genao; they understand that he is critically ill but they would like to continue full medical
management for now and are not interested in withdrawal care. As of 03/24, given that his mental status has improved, I recommend to continue with full aggressive management considering that he is improving.
Unfortunately as of 03/25, he continues to be hypoxic and severely deconditioned after extubation. Goals of care discussion held with the and daughter on 03/25. They would like to continue with full medical care, as the feels that this
is what Johann would have wanted. I also discussed this goals of care with the patient himself and he says to 'do what ever is needed' at this time.
The patient last saw Dr. Olivarez 03/08/2025 for ILD, restrictive lung disease and pulmonary nodule-has appointment for PFT 04/28/2025 at 3 PM [address] appointment [address] Olivarez 04/29/2025 at 11:15 AM
Critical care statement: A total of 45 minutes of critical care time was provided for this patient today. This includes management of unstable vital signs, evaluation of the patient at bedside, reviewing the patient's pertinent medical records
including radiographs, microbiology, laboratory evaluations, and discussion with primary team, consultants, pharmacy, nutrition, physical therapy, case management, charge nurse, critical care nursing, and respiratory therapy.
Office note Dr. Olivarez 03/08/2025 in regards to pulmonary nodule:
CT imaging August 2024 revealed approximately 1.3 cm nodular opacity in the right base, not present on previous exam.
Underwent a repeat CT in November 2024 Showed resolution of previously seen right basilar nodule but a new 1.4 cm nodule in the right lower lobe.
Underwent a PET scan 12/17/2024 which showed evolution of right lower lobe nodule, now presenting as large ground glass nodule measuring up to 3.9 cm. Highly suggestive of benign infectious/inflammatory process.
Repeat CT 02/2025: now demonstrate bilateral peribronchiolar ground glass infiltrate bilaterally.Unclear etiology, differential Dx includes inflammatory/infectious process vs pulmonary edema.there is evidence of small bilateral pleural effusions,
with history of aortic stenosis pulmonary edema except possibility.With ongoind immunosupresion will need to keep in my oportunistic infection.
Will obtain ILD serology, proBNP and inflmmatory markers.
Bronchoscopy with BAL may be required-if there is no evidence of volume overload.-Of note He was treated with an antibiotic and steroids middle of October 2024. He denies any active Symptoms suggesting infection.If He does produce any phlegm, we will
submit sputum culture
Diagnostic data:
CT Chest 03/28/2025- Mild pneumomediastinum, with superior extension into the fat at the base of the neck, as well as at the posterior and lateral aspect of the right mid to upper thorax.
Diffuse bilateral interstitial and groundglass opacity. This could be related to fluid associated with interstitial and pulmonary edema related to volume overload or congestive heart failure. Alternatively, findings may be infectious in nature
related to atypical or viral pneumonitis. No focal dense consolidation.
Chest x-ray 03/18/2025-severe chronic inflammatory interstitial pneumonitis
CT abdomen and pelvis 03/18/2025-severe acute edema and inflammation around right lower quadrant renal transplantation, severe hydronephrosis, severe bilateral atrophic wales kidneys, small bilateral pleural effusions, increased coarse interstitial
markings throughout both lower lobes, right middle lobe with severe chronic inflammatory interstitial pneumonitis
ILD serology 03/10/2025-negative rheumatoid factor, ROXANNE, SSA antibodies, scleroderma antibody, proteinase [address] chest 02/23/2025 Reviewed Uriel Leong 03/08/2025 06:25:26 AM EDT >1. Resolution of previously seen right lower lobe 1.4 cm nodule.2. Mild to moderate changes of pulmonary fibrosis as seen previously.3. Superimposed upon the changes of
fibrosis, there is new large amount of bilateralperibronchovascular interstitial and groundglass opacity with small amount of bilateral upper lungairspace consolidation as detailed above. There are very small bilateral pleural effusions. Whileedema
is a differential consideration, findings are more suggestive of a superimposed infectious orinflammatory process. There is associated mild mediastinal adenopathy.-
PET CT 12/17/2024 reviewed: Uriel Leong 03/08/2025 06:25:44 AM EDT >The previously seen solid right lower lobe nodule has evolved/changed in morphology, nowpresenting as a large groundglass nodule measuring up to 3.9 cm which demonstrates
max SUV 4.7(delayed 5.4). Otherwise, no suspicious FDG avid lesions.ABDOMEN and PELVIS:No suspicious FDG-avid lesions.SKELETON:No suspicious FDG-avid lesions.This suggests inflammatory process.-
CT chest 2023: Reviewed Uriel Leong 07/05/2023 08:49:26 AM >1. No significant acute abnormality identified in the chest within the limits of unenhanced CT, asdescribed above. Probable residual fibrotic changes in the lungs, less
likely active pneumonitis.-
CT chest 02/27/2023: Reviewed Uriel Leong 03/06/2023 08:42:39 AM >There has been significant further improvement in the patient's bilateral parenchymal airspacedisease when compared with the previous examinations.Currently, there is mild
left and moderate diffuse coarsening of the interstitial markingsthroughout both lungs which at this point may be residual scarring/fibrosis rather than acuteinflammatory disease.There is mild cardiomegalyThere is atherosclerosis-
CT chest 11/23/2022: showed evidence of postinflammatory fibrosis. Groundglass opacities have resolved..
Pulmonary function testing ( 07/13/2024� ):FEV1: 3.4 L-107%FVC:3.96 L-89%FEV1/FVC ratio:86%T.52 L-73%RV:44%ERV:RV/TLC ratio:23%DLCO: 13.69-50%DLCO/VA: 70%
Echo 05/19/24: Normal biventricular size and function. EF 65%. Severely dilated LA. Paradoxical low flow low gradient aortic stenosis. Mild AR.
Subjective Dataa
Subjective Data
Date of Service:
Date of Service: March 30, 2025
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
Subjective:
Comfortably lying in bed in no acute distress
Review of Systems
Genitourinary: Other (No new symptoms reported)
Objective Data
Data Reviewed
Vital Signs / I&O / Oxygen:
Vital Signs
Temp Pulse Resp BP Pulse Ox
97.4 F 88 28 158/109 93
03/30/25 12:17 03/30/25 12:00 03/30/25 12:00 03/30/25 12:00 03/30/25 12:00
Intake and Output
03/29/25 03/30/25 03/31/25
06:59 06:59 06:59
Intake Total 725 / 1060 1658 / 1690 454 / 454
Output Total 860 / 860 740 / 740 510 / 510
Balance -135 / 200 918 / 950 -56 / -56
SaO2 [ASV] 98
SaO2 [A/C] 96
SaO2 [NIV (Non Invasive 97
Ventilation)]
SaO2 93
Nasal Cannula flow liters per 4
minute
Physical Exam
General: Respiratory Distress (negative), Comfortable, Chills (negative) and Sweats (negative)
HEENT: Normocephalic and Anicteric
Cardiovascular: Irregular Rhythm (Irregularly irregular) and Peripheral Edema (negative)
Respiratory: Wheeze (n), Crackles (Significantly improved), Rhonchi (n), Non-Labored Respirations, Stridor (n) and Other (Bubbling in right hemithorax)
GI: Soft, Non Distended, Non Tender and Normal Bowel Sounds
Neurology: Tremors (negative) and Other (Somnolent although easily arousable to voice and tactile stimulation, answering questions appropriately)
Skin: Warm, Dry, Cyanosis (n), Jaundice (n) and Rash (n)
Labs/Micro/Reports
Lab Data
03/30/25 02:36
03/30/25 02:36
Laboratory Results
03/29/25 03/30/25 03/30/25
19:51 02:36 08:56
APTT 38.2 H 36.2 H 45.9 H
--- NOTE | 2025-03-30 14:59 | CM ---
CM reviewed pt with attending
Pt extubated on 03/25, nephro continues to follow for HD needs
PT/OT orders placed and pending
DBT likely to be removed tomorrow
Discharge Disposition- home with VN vs SNF, watch for on-going HD needs
[2025-03-30] MEDS: NOVOLOG FLEXPEN-MODERATE RESISTANCE 5 UNITS SC (16:40)
[2025-03-30 16:43] LABS: Glucose - Point of Care 285 mg/dl (70-99)
[2025-03-30 16:58] LABS: APTT 72.6 Sec (23.4-35.0)
--- NOTE | 2025-03-30 17:04 | W.PN.CD ---
Today's Communication / Plan
-
agree with fluid based on RHC numbers
maintain euvolemia with CRRT, no need for further volume removal
decision regarding valve management pending renal trajectory
Impression / Plan
-
79M with prior renal transplant in 2019 presenting with septic shock and ELIZABETH now on CRRT. New diagnosis this admission of severe aortic stenosis.
RHC today demonstrated low filling pressures and low index. Fluids given. Urine output improving a bit and shock has resolved. He still has not had renal recovery and has not tolerated HD yet. He has severe .
Septic shock, in setting of pyelonephrosis:
-received IVF, no longer on pressors
-ID following, on antibiotics
Acute respiratory failure:
-now extubated, minimal O2
-CT scan 03/28/25: Mild pneumomediastinum, with superior extension into the fat at the base of the neck, as well as at the posterior and lateral aspect of the right mid to upper thorax. Diffuse bilateral interstitial and groundglass opacity. This
could be related to fluid associated with interstitial and pulmonary edema related to volume overload or congestive heart failure. Alternatively, findings may be infectious in nature related to atypical or viral pneumonitis. No focal dense
consolidation. On IV steroids. On IV abx.
-does not appear obviously volume overloaded to assessment (weight down significantly, no edema), and euovlmic to dry by RHC
-fluid given today based on RHC numbers
ELIZABETH, hx kidney transplant with evidence for rejection, hydronephrosis with Disla:
-had hemodynamic instability on HD, now for CRRT
-nephrology is on the case
-urine output improving with fluids
Aortic stenosis, severe:
-Echo 03/23/25: Normal biventricular size and systolic function. Severe LFLG aortic stenosis: reported mean 39 mmHg (on a long RR interval, looks more like 30 on standard beats, but DVI 0.2 and and estimated SHU 0.46 cms), SVI 17 mL/m2. Unlikely
that anemia is causing significant overestimation of severity. Anemia may produce high gradient with borderline severe valve area that corrects with reduction in flow, but he is already in a low flow state. Severe left atrial enlargement.
Compared to echocardiogram dated 05/19/2024 the valve looks perhaps visually progressed and quantitative severity is increased.
- Complex situation regarding management of . RHC does suggest that there is a cardiogenic component of shock that may be contributing to his poor renal function and hindering recovery. Should he be unable to tolerate HD and get out of the
hospital, we will need to consider inpatient BAV vs. TAVR. If able to recover, expedited outpatient TAVR workup would be preferable and imaging plan to assess access, valve sizing, and coronaries will hinge on expected renal recovery (i.e., if not
anticipated to have renal recovery will use CT, if hope for renal recovery will need to avoid iodine contrast as much as possible and use non CT modalities and extremely low contrast dose for LHC)
Permanent AFIB:
-On heparin drip rather than Eliquis (per nephro since patient had clotting with initiation of CRRT)
-on metoprolol, rate currently controlled- follow telemetry
-follow telemetry
Anemia:
-improved
-monitor closely now back on AC
Physical Exam
Vital Signs/Labs
Vital Signs
Temp Pulse Resp BP Pulse Ox
36.3 C 105 28 147/91 95
03/30/25 15:37 03/30/25 15:00 03/30/25 15:00 03/30/25 15:00 03/30/25 14:00
03/29/25 03/30/25 03/31/25
06:59 06:59 06:59
Actual Weight 67.7 kg 68.8 kg
03/30/25 02:36
03/30/25 02:36
PT 17.8 Sec (11.4-14.6) H 03/24/25 04:05
INR 1.44 03/24/25 04:05
APTT 45.9 Sec (23.4-35.0) H 03/30/25 08:56
Magnesium 2.6 mg/dl (1.6-2.3) H 03/30/25 02:36
Triglycerides 220 mg/dl (10-149) H 03/27/25 03:27
03/19/25 03/26/25 03/28/25
23:51 03:21 03:28
Jfw-A-Nmvbaxgeprv Pept > [id number]
Physical Exam
Constitutional: Comfortable
Cardiovascular: Pedal edema is absent and Rhythm/rate is irregular
Respiratory: Respiratory effort normal
Neuro/Psych: AO x 3
Data Reviewed
-
Date of Service: March 30, 2025
Medical Decision Making: Reviewed Test Results
EKG: Tracing Personally Visualized and interpreted
Echo: Tracing Personally Visualized and interpreted
X-Ray/CT/US/MRI/NUC/PET: Image Personally Visualized and interpreted
Labs: Labs Reviewed by me
[2025-03-30] MEDS: ELIQUIS 5 MG PO (19:38)
[2025-03-30] MEDS: SENOKOT-S 1 TABLET PO (19:38)
[2025-03-30] MEDS: CELLCEPT 1000 MG PO (19:39)
--- NOTE | 2025-03-30 19:44 | PTCARENOTE ---
2000 Eliquis dose given to pt, Heparin gtt turned off.
[2025-03-30] MEDS: MELATONIN 5 MG PO (21:22)
[2025-03-30 21:37] LABS: Glucose - Point of Care 214 mg/dl (70-99)
[2025-03-30] MEDS: NOVOLOG FLEXPEN 4 UNITS SC (21:52)
[2025-03-31] VITALS (30 sets, daily range): BP systolic 100–168; BP diastolic 69–112; PULSE 88; O2SAT 94; BMI 20.7
--- NOTE | 2025-03-31 03:06 | DOWNTIME ---
There was a [employer] Client Tube Cleaning Operator Downtime on 03/31/2025 from 0100 to 03/31/2025 at 0255. Downtime documentation of patient's care, including medication administrations, has been reconciled in the electronic record per guidelines. Refer to the
patient's paper chart under the miscellaneous tab to see printed paper medication records and downtime forms.
--- NOTE | 2025-03-31 03:06 | PTCARENOTE ---
Systems reviewed, no new changes in assessment. AM labs provided. Call tao in reach. Safe environment maintained.
[2025-03-31 03:24] LABS: Hematocrit 26.9 % (39.0-52.0); Hemoglobin 8.8 g/dL (13.0-18.0); Mean Corp Hgb Conc. 32.7 g/dL (33.0-37.0); Mean Corpuscular Volume 93.1 fL (80.0-94.0); Platelet Count 191 10^3/uL (130-400); Red Cell Dist. Width 16.2 % (11.5-14.5)
[2025-03-31 03:39] LABS: Calcium 8.1 mg/dl (8.4-10.2); Carbon Dioxide 19 mmol/L (22-30); Chloride 107 mmol/L (98-107); Estimated Creatinine Clearance 17 ml/min; Glucose 174 mg/dl (70-99); Potassium 4.2 mmol/L (3.5-5.1); Sodium 141 mmol/L (135-145); eGFR 17.03
[2025-03-31 03:54] LABS: Blood Urea Nitrogen 165 mg/dl (9-20)
[2025-03-31] MEDS: SENOKOT-S 1 TABLET PO ×2 (07:36→20:35)
[2025-03-31] MEDS: ELIQUIS 5 MG PO ×2 (07:36→20:35)
[2025-03-31] MEDS: CELLCEPT 1000 MG PO ×2 (07:36→20:35)
[2025-03-31] MEDS: DELTASONE 40 MG PO (07:37)
[2025-03-31] MEDS: BACTROBAN 2% OINTMENT 1 APPLIC NASAL ×2 (07:37→20:35)
[2025-03-31] MEDS: LOPRESSOR 25 MG PO ×2 (07:38→20:35)
[2025-03-31] MEDS: MIRALAX 17 GRAMS PO (07:39)
--- NOTE | 2025-03-31 07:39 | W.PN.HOSP.TC ---
Today's Communication/Plan
-
Possible HD tomorrow after catheter exchange
See plan
Assessment / Plan
Assessment / Plan
Physical Exam
General: No Apparent Distress
HEENT: NormoCephalic, Moist mucous membranes,
Respiratory: Rhonchi's, nasal cannula, R chest wall HD catheter noted
Cardiac: S1/S2, Regular Rhythm and Murmur (3 out of 6 systolic murmur)
GI: Soft, Non Tender, Non Distended and Normal Bowel Sounds;
Rectal: Deferred by Provider
-esteves
Skin: No Rash
Neuro: AAO x 3
Assessment/Plan
79-year-old with history of end-stage renal disease status post kidney transplant 2018 on antirejection medications, hypertension, hyperlipidemia, atrial fibrillation on , urinary retention status post catheter placement on Saturday presenting
to the emergency department with fever and chills as well as weakness. CT scan consistent with transplant pyelonephritis. He still has persistent hydro which likely reflects chronic hydro compared to his prior ultrasound. Known anemia. Picture
consistent with pyelonephritis with bandemia and lactic acidemia consistent with sepsis.
Acute hypoxic respiratory failure likely Multifactorial secondary to pulmonary edema versus pneumonia versus interstitial lung disease
- intubated 03/21; extubated 03/25
Wean oxygen as tolerated
Off IV steroids on oral steroids
S/p right heart cath, wedge 8, signifies that he is dry
Sepsis shock associated with acute kidney injury, lactic acidosis secondary to Klebsiella bacteremia likely secondary to urinary tract infection
Transplant kidney pyelonephritis with Klebsiella and E. faecalis
suspected acute pulm edema
Pressors remain off
Continue Unasyn
Epistaxis
Evaluated by ENT, status post left NC packing. now removed. Appears deviated septum per ENT. Monitor
Toxic metabolic encephalopathy likely secondary to shock versus ICU delirium versus hypoxemia versus uremia
appears to be improving when off sedation
Hydronephrosis - Resolving, cannot rule out post obstructive polyuria. Catheter placed by Dr. Jim as outpatient.
Obstructive uropathy of transplant kidney, Esteves placed 03/15/25
- maintain urinary catheter for now
- patient denies any alpha blockade but considering TURP
-Still with hematuria however hemoglobin remained stable
- monitor i/os
- f/u u/s after tx of elizabeth
- continue cardura with hold parameters when able
ELIZABETH only- Persistent ELIZABETH despite Esteves placement. Recent Treatment for rejection in December.
Metabolic acidosis
Required hemodialysis has received multiple session
On temporary hemodialysis catheter
Per nephrology since HD catheter is not functioning, it will need exchange, followed by HD tomorrow 03/31/25
Avoid nephrotoxins hypotension
Severe likely limiting factor for hemodynamic instability during HD -- if cannot tolerate HD, will need inpatient TAVR versus BAVR
donor renal transplant 2019 from [facility]
Cellcept resumed 03/30/25 nephrology. On IV steroids
Severe aortic stenosis
- RHC indicates aortic stenosis as source of low cardiac output/cardiogenic shock.
Cardiology recommended TAVR vs BAVR.
- Per ID, Infection is resolved, completing abx course in 2 days -> He is cleared for TAVR from ID perspective -- if cannot tolerate HD, will need inpatient TAVR versus BAVR
Acute blood loss anemia with baseline chronic macrocytic anemia - Macrocytic anemia, recent normal sats but given IV iron infusion without improvement. Denies melena but did have epistaxis as above and also hematuria. Colonoscopy November ->single
non-bleeding colonic angioectasia and internal hemorrhoids. On Eliquis.
- Ferritin level elevated.Received blood transfusion this hospitalization
- type and screen and trend H&H for now
- Transfuse hgb <7
Eliquis resumed
Thrombocytopenia likely secondary to septic shock
-Continue to trend platelets.
AFIB Permanent
- Eliquis resumed. Continue Metoprolol.
Sacrum Stage 2 Pressure Injury
-Wound care
DVT PPX - SCD's. Eliquis
Code status - Full Code
Improving
Anticipated Discharge: > 48 hours
Subjective/Interval History
-
Date of Service: March 31, 2025
Patient was seen and examined. He was doing okay, denied any new symptoms or complaints.
Objective Data
-
Labs:
Laboratory Results
03/31/25
02:56
WBC 16.4 H
Hgb 8.8 L
Hct 26.9 L
Plt Count 191
Sodium 141
Potassium 4.2
Chloride 107
Carbon Dioxide 19 L
BUN 165 H*
Creatinine 3.5 H
Glucose 174 H
Calcium 8.1 L
Vital Signs:
Vital Signs
Temp Pulse Resp BP Pulse Ox
96.8 F L 103 18 151/72 96
03/31/25 07:23 03/31/25 07:38 03/31/25 07:00 03/31/25 07:38 03/31/25 07:00
I&O
03/30/25 03/31/25 04/01/25
06:59 06:59 06:59
Intake Total 1658 / 1690 2079 / 2099
Output Total 740 / 740 1240 / 1240
Balance 918 / 950 840 / 860
--- NOTE | 2025-03-31 09:00 | PTCARENOTE ---
Rec'd care of patient at 0700. AAOx3. [place]. Anxious. MAEx4; generalized weakness. Afib/aflutter with pvcs. Rate controlled. Pulse ox 95-97% on RA. Breathing labored. Tachypneic. NIETO. DHT with TFs infusing at ordered rate. Appetite poor. Dilsa with
tea/brown output. LDL PICC capped. See worklist for full assessment and care.
[2025-03-31] MEDS: NOVOLOG FLEXPEN-HIGH RESISTANCE 10 UNITS SC (09:16)
[2025-03-31 09:31] LABS: Glucose - Point of Care 313 mg/dl (70-99)
--- NOTE | 2025-03-31 09:35 | W.PN.ID1 ---
Date of Service
Date of Service: March 31, 2025
Today's Communication
Continue Unasyn.
He is cleared for TAVR from ID perspective.
Assessment / Plan
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
# Transplant kidney pyelonephritis with Klebsiella and E. faecalis
# Klebsiella bacteremia - source
# Obstructive uropathy of transplant kidney, esteves placed 03/15
# Fever - resolved
# Leukocytosis - due steroids
# s/p Shock
-03/20 Repeat bcx's negative
-03/18 Ucx: Klebsiella and Enterococcus
-Continue Unasyn (d1), renally dosed
# Acute hypoxemic respiratory failure - intubated 03/21; extubated 03/25
# Severe aortic stenosis
# RHC
- RHC indicates as source of low cardiac output/cardiogenic shock.
Cardiology recommends TAVR vs BAVR.
- Infection is resolved, completing abx course in 2 days -> He is cleared for TAVR from ID perspective.
# ELIZABETH on CKD
- Renal replacement therapy started 03/20, on hold
# Conditions present on admission
donor renal transplant on mycophenolate, belatacept, prednisone 2.5 twice daily 2018
Atrial fibrillation
Post-COVID chronic inflammatory interstitial pneumonitis
Severe aortic stenosis
Hypertension
BPH
Postherpetic neuralgia
Chronic back pain
Chief Complaint
-: UTI
Subjective / Review of Systems
SOB improving.
Vital Signs / Physical Exam
Vital Signs
Vital Signs
Temp Pulse Resp BP Pulse Ox
96.8 F L 91 28 158/83 96
03/31/25 07:23 03/31/25 08:00 03/31/25 08:00 03/31/25 08:00 03/31/25 08:00
Physical Exam
Constitutional: Comfortable
Eyes: No Conjunctival Hemorrhage
Cardiovascular: Regular Rate, S1/S2 and Murmur
Pulmonary: Rales
Gastrointestinal: Soft, Non Tender, Non Distended and Normal Bowel Sounds
Genito-Urinary: Esteves; Negative CVA Tenderness
Extremities: Negative Edema
Neurological: AO x 3
Objective Data
Lab Data
Lab Results
03/31/25 02:56
03/31/25 02:56
ESR 79 mm/hour (0-20) H 03/29/25 02:46
PT 17.8 Sec (11.4-14.6) H 03/24/25 04:05
INR 1.44 03/24/25 04:05
APTT 72.6 Sec (23.4-35.0) H 03/30/25 16:35
Estimated Creat Clear 17 ml/min 03/31/25 02:56
Lactic Acid 1.2 mmol/L (0.7-2.0) 03/19/25 23:40
Total Bilirubin 4.2 mg/dl (0.2-1.3) H 03/28/25 03:27
AST 22 U/L (17-59) 03/28/25 03:27
ALT 34 U/L (0-50) 03/28/25 03:27
Alkaline Phosphatase 82 U/L (38-126) 03/28/25 03:27
C-Reactive Protein 250.80 mg/L (0.0-10.00) H 03/29/25 02:46
Most recent labs reviewed.
Micro Results:
03/20/25 05:07 Blood Culture - Final
Blood/Venous No Growth - Final Report
03/20/25 05:34 Blood Culture - Final
Blood/Venous No Growth - Final Report
03/18/25 18:13 Urine Culture - Final
Urine Klebsiella pneumoniae
Enterococcus faecalis
03/18/25 17:02 Blood Culture - Final
Blood/Venous Klebsiella pneumoniae
Gram Stain - Final
03/18/25 17:01 Blood Culture - Final
Blood/Venous Klebsiella pneumoniae
Gram Stain - Final
03/18/25 23:17 MRSA Screen - Final
Nose No Methicillin Resistant Staphylococcus aureus isolated.
03/18/25 17:03 Influenza Types A & B (NOLVIA) - Final
Nasal Swab Negative for Influenza A & B, NAAT
Negative results must be combined with clinical observations
and patient history.
Nucleic Acid Amplification test (NAAT)performed on the
be2 platform.
03/28/[address]: Mild pneumomediastinum, with superior extension into the fat at the base of the neck, as well as at the posterior and lateral aspect of the right mid to upper thorax. Diffuse bilateral interstitial and groundglass opacity. This
could be related to fluid associated with interstitial and pulmonary edema related to volume overload or congestive heart failure. Alternatively, findings may be infectious in nature related to atypical or viral pneumonitis. No focal dense
consolidation.
03/20/25 CXR: Grossly stable severe diffuse bilateral interstitial and airspace disease which may reflect combination of pulmonary edema and pneumonia. Cannot rule out component of underlying chronic interstitial lung disease.
03/19/25 CXR: Progressive parenchymal disease process, as described. Differential includes progressive congestive heart failure with pulmonary edema versus diffuse bilateral pneumonia, right greater than left.
03/18/25 CT a/p: Severe acute edema and inflammation around the right lower quadrant renal transplant which is new from 12/17/2024. Severe hydronephrosis of the right intrarenal collecting system and right renal pelvis which has increased. ACUTE
PYELONEPHRITIS of the RIGHT LOWER QUADRANT RENAL TRANSPLANT is considered most likely. Acute infarction of the renal transplant is a less likely diagnostic possibility. Severe diffuse urinary bladder wall thickening with surrounding perivesical
inflammation which appears new from 12/17/2024 suggesting SEVERE ACUTE CYSTITIS. Esteves catheter in the urinary bladder. Mildly enlarged prostate gland.
--- NOTE | 2025-03-31 10:54 | W.PN.NEPH.PH ---
Today's Communication / Plan
-
HD tomorrow once catheter exchanged
Assessment/Plan
-
This is a 79-year-old gentleman who follows in our office with Dr. Muhammad after donor renal transplant 2019 from [facility]. His transplant course has been complicated by development of nephrotic range proteinuria as well as recent
cellular rejection December of this year. The episodes treated with Solu-Medrol. His creatinine has risen quickly over time in the last several months. He has gone from a creatinine around 2 now up to 4.4. He was noted to have hydronephrosis of
the transplanted kidney recently on ultrasound as well as CT scan. Esteves catheter was placed by urology a few days ago. His appetite has been poor as of late. Recently he also developed fever and malaise and this has brought him to the emergency
room. He was noted to be febrile in the ER. Blood pressure was stable though lower than his home readings of 132. He was 100 systolic in the ER. Creatinine was 4.7 with elevated lactate level and elevated white count. CT of the abdomen and
pelvis were performed with suspicion for pyelonephritis of the transplant. We are asked to assist in management of his renal issues.
Assessment
Sepsis syndrome, possible pyelonephritis
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
donor renal transplant with FSGS, recent T-cell rejection
Obstructive uropathy, Esteves catheter in place
ELIZABETH..
Anemia
Hyponatremia
lactic acidosis
CANCER SPEC-He had been making outpatient arrangements for eventual ESRD and transplant evaluation at [place]/previously on peritoneal dialysis prior to transfer
Plan
ELIZABETH-cr slightly better at 3.5
worsening azotemia on steroids, no clinical uremia noted , back on MMF
non oliguric net +ve balance, PCWP was at 8 on 03/30
holding HD still however likely need to start back soon
Last HD was on 03/26
catheter is not functioning so will need exchange
steroids changed to po and started weaning
mild hematuria with esteves-monitor
improving O2 requirements currently on RA
severe likely limiting factor for hemodynamic instability during HD
CXR improving and on RA
abx per ID
dose meds renally
cont TF through DHT
high risk encounter
Reviewed case with ICU in detail, there is possibility of inpt TAVRvs BAV if he can not tolerate HD
so plan HD tomorrow
-
-
Date of Service: March 31, 2025
CC / HPI / ROS
-
Chief Complaint:
Sepsis
History of Present Illness:
Acute kidney injury multifactorial obstructive uropathy, sepsis
remains off pressors
extubated 03/25, on RA
hb 8.8 stable, 1 PRBC on 03/22
wt is up
Creatinine down at 3.5 but BUN up at 165
Review of Systems:
non oliguric with esteves
no fever, improving
no pain, feels anxious
Labs
-
Labs:
WBC 16.4 10^3/uL (4.8-10.8) H 03/31/25 02:56
RBC 2.89 10^6/uL (4.70-6.10) L 03/31/25 02:56
Hgb 8.8 g/dL (13.0-18.0) L 03/31/25 02:56
Hct 26.9 % (39.0-52.0) L 03/31/25 02:56
Plt Count 191 10^3/uL (130-400) 03/31/25 02:56
Sodium 141 mmol/L (135-145) 03/31/25 02:56
Potassium 4.2 mmol/L (3.5-5.1) 03/31/25 02:56
Chloride 107 mmol/L (98-107) 03/31/25 02:56
Carbon Dioxide 19 mmol/L (22-30) L 03/31/25 02:56
BUN 165 mg/dl (9-20) H* 03/31/25 02:56
Creatinine 3.5 mg/dL (0.7-1.3) H 03/31/25 02:56
eGFR 17.03 03/31/25 02:56
Glucose 174 mg/dl (70-99) H 03/31/25 02:56
Calcium 8.1 mg/dl (8.4-10.2) L 03/31/25 02:56
Phosphorus Cancelled 03/29/25 17:00
Dmg-M-Tjtzhgvqhst Pept 68533 pg/ml 03/28/25 03:28
Albumin 2.8 g/dl (3.5-5.0) L 03/28/25 03:27
Physical Exam
-
Vital Signs:
Vital Signs
Temp Pulse Resp BP Pulse Ox
96.8 F L 76 28 129/73 96
03/31/25 07:23 03/31/25 10:00 03/31/25 10:00 03/31/25 10:00 03/31/25 10:00
Cardiovascular:: Regular rate and rhythm
Respiratory:: Bilateral: Coarse (much improved from before)
Lung Excursion:: Abnormal
Abdomen:: Nontender and Soft
Extremity Edema:: None: Bilateral:
Esteves Catheter: Yes
Other Findings::
Feeding tube
right IJ catheter
--- NOTE | 2025-03-31 10:55 | PTCARENOTE ---
Addendum entered by Ayleen Matthews RN 03/31/25 11:17:
7 units of NPH ordered in place of Lantus order.
Original Note:
Plan of care discussed during rounds. Patient c/o worsening anxiety. PRN Valium ordered. Blood sugars remain elevated. 15 units Lantus ordered.
--- NOTE | 2025-03-31 11:17 | PN.CDI ---
CDI
- -
CDI:
Physician Documentation Request
Admit Date: 03/18/25 19:48
Dear Doctor Edy,
03/29 [facility] notes and assessment: 'wound /breakdown location: Sacrum.....stage 2. Patient with DTI noted by staff on 03/25. Wound appears to have evolved into a stage 2 PI. '
Physician documentation of the type and location of wounds is required for compliant documentation. Based on the above clinical findings and your assessment, please provide the following in your progress note:
1. Location of the ulcer/wound, including laterality.
2. Type (etiology) of ulcer/wound:
- Traumatic wound
- Pressure (decubitus) ulcer
- Other
Use of terms such as suspected, likely, concern for, or probable (associated with a specific diagnosis that is being evaluated, monitored, or treated as if it exists) are acceptable and can be coded in the inpatient setting, when documented at the
time of discharge.
Thank you,
Brandy Garcia RN, BSN
CDI Specialist
tiger text
Please use your independent medical judgment in providing your response.
*Source: National Pressure Ulcer Advisory Panel (NPUAP)
[2025-03-31] MEDS: UNASYN IV (11:28)
[2025-03-31] MEDS: VALIUM 2 MG PO ×2 (11:28→20:36)
--- NOTE | 2025-03-31 11:42 | W.PN.CD ---
Today's Communication / Plan
-
onging supportive care
would prefer a repeat HD trial when volume replete
ongoing discussion per correct timing of AV intervention
Impression / Plan
-
79M with prior renal transplant in 2019 presenting with septic shock and ELIZABETH now on CRRT. New diagnosis this admission of severe aortic stenosis.
RHC today demonstrated low filling pressures and low index. Fluids given. Urine output improving a bit and shock has resolved. He still has not had renal recovery and has not tolerated HD yet. He has severe .
Septic shock, in setting of pyelonephrosis:
-received IVF, no longer on pressors
-ID following, on antibiotics
Acute respiratory failure:
-now extubated, minimal O2
-CT scan 03/28/25: Mild pneumomediastinum, with superior extension into the fat at the base of the neck, as well as at the posterior and lateral aspect of the right mid to upper thorax. Diffuse bilateral interstitial and groundglass opacity. This
could be related to fluid associated with interstitial and pulmonary edema related to volume overload or congestive heart failure. Alternatively, findings may be infectious in nature related to atypical or viral pneumonitis. No focal dense
consolidation. On IV steroids. On IV abx.
-No volume overload on cath but CXR suggested mild improvement, care per Dr Thorne.
ELIZABETH, hx kidney transplant with evidence for rejection, hydronephrosis with Disla:
-had hemodynamic instability on HD, now for CRRT
-nephrology is on the case
-remains to be seen if will tolerate HD intermittently which would allow for him to return for valve intervention.
-Would like to give this a chance when he is volume replete, as would be to have him return for TAVR after discussion with Dr Larios, would love to avoid BAV.
-d/w Dr Thorne
Aortic stenosis, severe:
-Echo 03/23/25: Normal biventricular size and systolic function. Severe LFLG aortic stenosis: reported mean 39 mmHg (on a long RR interval, looks more like 30 on standard beats, but DVI 0.2 and and estimated SHU 0.46 cms), SVI 17 mL/m2. Unlikely
that anemia is causing significant overestimation of severity. Anemia may produce high gradient with borderline severe valve area that corrects with reduction in flow, but he is already in a low flow state. Severe left atrial enlargement.
Compared to echocardiogram dated 05/19/2024 the valve looks perhaps visually progressed and quantitative severity is increased.
-D/w with Dr Larios and agree with the following assessment by him-'Complex situation regarding management of . RHC does suggest that there is a cardiogenic component of shock that may be contributing to his poor renal function and hindering
recovery. Should he be unable to tolerate HD and get out of the hospital, we will need to consider inpatient BAV vs. TAVR. If able to recover, expedited outpatient TAVR workup would be preferable and imaging plan to assess access, valve sizing, and
coronaries will hinge on expected renal recovery (i.e., if not anticipated to have renal recovery will use CT, if hope for renal recovery will need to avoid iodine contrast as much as possible and use non CT modalities and extremely low contrast
dose for [facility])'
Permanent AFIB:
-On heparin drip rather than Eliquis (per nephro since patient had clotting with initiation of CRRT)
-on metoprolol, rate currently controlled- follow telemetry
-follow telemetry
Anemia:
-improved
-monitor closely now back on AC
Physical Exam
Vital Signs/Labs
Vital Signs
Temp Pulse Resp BP Pulse Ox
96.8 F L 86 22 145/97 96
03/31/25 07:23 03/31/25 11:00 03/31/25 11:00 03/31/25 11:00 03/31/25 11:00
03/30/25 03/31/25 04/01/25
06:59 06:59 06:59
Actual Weight 151 lb 10.848 oz 152 lb 12.485 oz
03/31/25 02:56
03/31/25 02:56
PT 17.8 Sec (11.4-14.6) H 03/24/25 04:05
INR 1.44 03/24/25 04:05
APTT 72.6 Sec (23.4-35.0) H 03/30/25 16:35
Magnesium 2.6 mg/dl (1.6-2.3) H 03/30/25 02:36
Triglycerides 220 mg/dl (10-149) H 03/27/25 03:27
03/19/25 03/26/25 03/28/25
23:51 03:21 03:28
Gwy-[id number]-[id number] Pept > [id number]
Physical Exam
Constitutional: Distress (mild dyspnea)
Cardiovascular: Pedal edema is absent, JVD pressure is normal, Rhythm/rate is irregular, JVD present and Systolic murmur present
Respiratory: Respiratory effort normal, Lungs clear to auscul., Wheeze Absent, Crackles Absent and Rhonchi Absent
Neuro/Psych: AO x 3
Data Reviewed
-
Date of Service: March 31, 2025
Medical Decision Making: Review of Case with other Provider (reviewed with Dr Larios and Dr Thorne see note)
--- NOTE | 2025-03-31 11:59 | PTCARENOTE ---
Systems reviewed; unchanged from prior assessment. VSS.
[2025-03-31 12:24] LABS: Glucose - Point of Care 225 mg/dl (70-99)
[2025-03-31] MEDS: NOVOLIN N vial 0.07 UNITS SC (12:25)
[2025-03-31] MEDS: NOVOLOG FLEXPEN-HIGH RESISTANCE 4 UNITS SC ×2 (12:26→16:50)
--- NOTE | 2025-03-31 12:40 | PTCARENOTE ---
PICC no longer indicated. Discussed with Sheriff Sergeant. Order placed to remove PICC. New peripheral site placed.
--- NOTE | 2025-03-31 13:14 | W.PN.INTV ---
Today's Communication / Plan
Recommendations
- Lower prednisone to 30 mg daily
- Add NPH every morning to help with steroid-induced hyperglycemia
- Continue tube feeding support in addition to p.o. intake
Assessment
-
79-year-old male with a 1 pack year smoking history, hypertension, nephrolithiasis, pulmonary nodule, atrial fibrillation, and renal transplantation on mycophenolate and prednisone with recent ultrasound showing transplant hydronephrosis presented
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
#1. Septic shock due to UTI/acute pyelonephritis, with Klebsiella bacteremia
- Off pressors now, hemodynamically stable
- 03/30, normal MAP. Shock resolved
- ID service on case, currently on IV Unasyn.
- Klebsiella and Enterococcus on urine cultures
#2. Acute hypoxic respiratory failure
- Patient was intubated 03/21, extubated 03/25, continues to require supplemental oxygen, overall improving
- Bilateral interstitial opacities, basal predominant with interseptal thickening, suggestive of pulmonary edema versus interstitial lung disease
- Patient has baseline mild reticular changes on imaging suggestive of mild fibrosis, crecent CT was with significant worsening
- Patient has severe aortic stenosis, poor tolerance of HD with significant uremia, fluid overload also was in differential diagnosis
- ILD exacerbation cannot be ruled out, patient empirically started on high-dose IV steroids on 03/28
- 03/30, RHC with PCWP only 8, also f/u CXR with improved interstitial opacities more suggestive of improving pulmonary edema rather than ILD
- Mild pneumomediastinum noted on imaging, suspect related to intubation and mechanical ventilation, follow-up chest x-ray in a.m.
#3. ELIZABETH with hydronephrosis of transplanted kidney
- Severe pyelonephritis as well as obstructive uropathy with hydronephrosis noted on imaging
- S/p Disla catheter placement, essentially anuric
- No renal recovery noted, patient had been initiated on hemodialysis
- Due to poor tolerance of HD, 03/29, transitioned to CRRT. Line clotted, off CRRT since.
- History of renal transplant in 2019. MMF has been resumed per neprhology service.
- 03/30, With low PCWP and low filling pressure, and improving CXR, patient receiving 1 ltr IVF
- 03/31, urine output marginally improved, creatinine continues to be high, BUN continues to climb
- Anticipate CRRT/HD in a.m.
#4. Epistaxis involving left nare s/p rapid Rhino via ENT - rapid rhino removed as of 03/26
- No further epistaxis noted
- Resumed Eliquis
#5. History of pulmonary nodules and baseline mild ILD
- Review of prior imaging shows mild reticular changes mostly in the posterior and basal area
- Concerning for chronic ILD versus early fibrotic changes with prior history of COVID-19
- Patient follows up with Dr. Alex at [facility] pulmonary clinic.
- Connective tissue disease panel negative with normal ROXANNE and rheumatoid factor levels.
- Current worsening concerning for volume overload versus ILD exacerbation.
- 03/30, CXR improving. Lower steroids to 30 mg daily with tapering over coming days.
#6. Atrial fibrillation with rapid ventricular response
- Continue metoprolol as tolerated
- Resumed Eliquis.
#7. Severe with cardiogenic shock
- RHC 03/2025, PCWP 8, CI 1.9, SVR 1526.
- 03/30. IVF challenge x 1 ltr
- Tentative TAVR vs BAV in coming days if renal function does not recover.
Conditions present prior to admission:
End-stage renal disease status post renal transplantation-[facility] 2018-follows at [facility]-Dr. Hines and locally Dr. Muhammad
Permanent atrial fibrillation/Eliquis.
Hypertension.
BPH.
Postherpetic neuralgia.
Chronic back pain.
Pulmonary nodule right base with negative PET followed by Dr. Olivarez-next CT 02/2025.
Fatty liver.
Inguinal hernia
Osteoporosis.
Hernia repair.
Cataract 2020. Transplant kidney December 2018.
DVT prophylaxis: Eliquis resumed.
Stress ulcer prophylaxis: N/A
FEES 03/29. PO as tolerated
Prognosis unfortunately poor with multiorgan dysfunction-goals of care discussion reviewed on 03/23 with the patient's daughters and with Dr. Genao; they understand that he is critically ill but they would like to continue full medical
management for now and are not interested in withdrawal care. As of 03/24, given that his mental status has improved, I recommend to continue with full aggressive management considering that he is improving.
Unfortunately as of 03/25, he continues to be hypoxic and severely deconditioned after extubation. Goals of care discussion held with the and daughter on 03/25. They would like to continue with full medical care, as the feels that this
is what Johann would have wanted. I also discussed this goals of care with the patient himself and he says to 'do what ever is needed' at this time.
The patient last saw Dr. Olivarez 03/08/2025 for ILD, restrictive lung disease and pulmonary nodule-has appointment for PFT 04/28/2025 at [address] appointment [address] Olivarez 04/29/2025 at 11:15 AM
Critical care statement: A total of 45 minutes of critical care time was provided for this patient today. This includes management of unstable vital signs, evaluation of the patient at bedside, reviewing the patient's pertinent medical records
including radiographs, microbiology, laboratory evaluations, and discussion with primary team, consultants, pharmacy, nutrition, physical therapy, case management, charge nurse, critical care nursing, and respiratory therapy.
Office note Dr. Olivarez 03/08/2025 in regards to pulmonary nodule:
CT imaging August 2024 revealed approximately 1.3 cm nodular opacity in the right base, not present on previous exam.
Underwent a repeat CT in November 2024 Showed resolution of previously seen right basilar nodule but a new 1.4 cm nodule in the right lower lobe.
Underwent a PET scan 12/17/2024 which showed evolution of right lower lobe nodule, now presenting as large ground glass nodule measuring up to 3.9 cm. Highly suggestive of benign infectious/inflammatory process.
Repeat CT 02/2025: now demonstrate bilateral peribronchiolar ground glass infiltrate bilaterally.Unclear etiology, differential Dx includes inflammatory/infectious process vs pulmonary edema.there is evidence of small bilateral pleural effusions,
with history of aortic stenosis pulmonary edema except possibility.With ongoind immunosupresion will need to keep in my oportunistic infection.
Will obtain ILD serology, proBNP and inflmmatory markers.
Bronchoscopy with BAL may be required-if there is no evidence of volume overload.-Of note He was treated with an antibiotic and steroids middle of October 2024. He denies any active Symptoms suggesting infection.If He does produce any phlegm, we will
submit sputum culture
Diagnostic data:
CT Chest 03/28/2025- Mild pneumomediastinum, with superior extension into the fat at the base of the neck, as well as at the posterior and lateral aspect of the right mid to upper thorax.
Diffuse bilateral interstitial and groundglass opacity. This could be related to fluid associated with interstitial and pulmonary edema related to volume overload or congestive heart failure. Alternatively, findings may be infectious in nature
related to atypical or viral pneumonitis. No focal dense consolidation.
Chest x-ray 03/18/2025-severe chronic inflammatory interstitial pneumonitis
CT abdomen and pelvis 03/18/2025-severe acute edema and inflammation around right lower quadrant renal transplantation, severe hydronephrosis, severe bilateral atrophic [place] kidneys, small bilateral pleural effusions, increased coarse interstitial
markings throughout both lower lobes, right middle lobe with severe chronic inflammatory interstitial pneumonitis
ILD serology 03/10/2025-negative rheumatoid factor, ROXANNE, SSA antibodies, scleroderma antibody, proteinase [address] chest 02/23/2025 Reviewed Uriel Leong 03/08/2025 06:25:26 AM EDT >1. Resolution of previously seen right lower lobe 1.4 cm nodule.2. Mild to moderate changes of pulmonary fibrosis as seen previously.3. Superimposed upon the changes of
fibrosis, there is new large amount of bilateralperibronchovascular interstitial and groundglass opacity with small amount of bilateral upper lungairspace consolidation as detailed above. There are very small bilateral pleural effusions. Whileedema
is a differential consideration, findings are more suggestive of a superimposed infectious orinflammatory process. There is associated mild mediastinal adenopathy.-
PET CT 12/17/2024 reviewed: Uriel Leong 03/08/2025 06:25:44 AM EDT >The previously seen solid right lower lobe nodule has evolved/changed in morphology, nowpresenting as a large groundglass nodule measuring up to 3.9 cm which demonstrates
max SUV 4.7(delayed 5.4). Otherwise, no suspicious FDG avid lesions.ABDOMEN and PELVIS:No suspicious FDG-avid lesions.SKELETON:No suspicious FDG-avid lesions.This suggests inflammatory process.-
CT chest 2023: Reviewed Uriel Leong 07/05/2023 08:49:26 AM >1. No significant acute abnormality identified in the chest within the limits of unenhanced CT, asdescribed above. Probable residual fibrotic changes in the lungs, less
likely active pneumonitis.-
CT chest 02/27/2023: Reviewed Uriel Leong 03/06/2023 08:42:39 AM >There has been significant further improvement in the patient's bilateral parenchymal airspacedisease when compared with the previous examinations.Currently, there is mild
left and moderate diffuse coarsening of the interstitial markingsthroughout both lungs which at this point may be residual scarring/fibrosis rather than acuteinflammatory disease.There is mild cardiomegalyThere is atherosclerosis-
CT chest 11/23/2022: showed evidence of postinflammatory fibrosis. Groundglass opacities have resolved..
Pulmonary function testing ( 07/13/2024� ):FEV1: 3.4 L-107%FVC:3.96 L-89%FEV1/FVC ratio:86%T.52 L-73%RV:44%ERV:RV/TLC ratio:23%DLCO: 13.69-50%DLCO/VA: 70%
Echo 05/19/24: Normal biventricular size and function. EF 65%. Severely dilated LA. Paradoxical low flow low gradient aortic stenosis. Mild AR.
Subjective Dataa
Subjective Data
Date of Service:
Date of Service: March 31, 2025
Chief Complaint: Transcribing Machine Operator Follow Up and Pulmonary Follow Up
Subjective:
Comfortably lying in bed in no acute distress
Review of Systems
Genitourinary: Other (No new symptoms reported)
Objective Data
Data Reviewed
Vital Signs / I&O / Oxygen:
Vital Signs
Temp Pulse Resp BP Pulse Ox
97.5 F 82 20 119/79 94
03/31/25 12:33 03/31/25 12:00 03/31/25 12:00 03/31/25 12:00 03/31/25 12:00
Intake and Output
03/30/25 03/31/25 04/01/25
06:59 06:59 06:59
Intake Total 1658 / 1690 2080 / 2100 290 / 290
Output Total 740 / 740 1240 / 1240 325 / 325
Balance 918 / 950 840 / 860 -35 / -35
SaO2 [ASV] 98
SaO2 [A/C] 96
SaO2 [NIV (Non Invasive 97
Ventilation)]
SaO2 94
Nasal Cannula flow liters per 4
minute
Physical Exam
General: Respiratory Distress (negative), Comfortable, Chills (negative) and Sweats (negative)
HEENT: Normocephalic and Anicteric
Cardiovascular: Irregular Rhythm (Irregularly irregular) and Peripheral Edema (negative)
Respiratory: Wheeze (n), Crackles (Significantly improved), Rhonchi (n), Non-Labored Respirations, Stridor (n) and Other (Bubbling in right hemithorax)
GI: Soft, Non Distended, Non Tender and Normal Bowel Sounds
Neurology: Tremors (negative) and Other (Somnolent although easily arousable to voice and tactile stimulation, answering questions appropriately)
Skin: Warm, Dry, Cyanosis (n), Jaundice (n) and Rash (n)
Labs/Micro/Reports
Lab Data
03/31/25 02:56
03/31/25 02:56
Laboratory Results
03/30/25
16:35
APTT 72.6 H
--- NOTE | 2025-03-31 15:00 | PTCARENOTE ---
PT/OT at bedside.
--- NOTE | 2025-03-31 16:43 | PTCARENOTE ---
No major changes. VSS. Repositioned for comfort.
--- NOTE | 2025-03-31 16:53 | CM ---
Prednisone taper, tube feed plus PO. Therapy rec for SNF. Needs dialysis. Discharge POC: Referrals sent to SNF's with Dialysis.
[2025-03-31 17:02] LABS: Glucose - Point of Care 213 mg/dl (70-99)
[2025-03-31] MEDS: MELATONIN 5 MG PO (21:02)
[2025-03-31 21:27] LABS: Glucose - Point of Care 211 mg/dl (70-99)
--- NOTE | 2025-03-31 22:22 | PTCARENOTE ---
on assessment pt AAOx3, denies pain but c/o SOB, pt tachypneic with labored breathing at times, FOUNDATION COORDINATOR made aware, PRN meds given see Kingsley COOK on the monitor, RA 97%, nepro at 20ml/hr with a 25 ml flush q4h, pills crushed in apple sauce and tolerated
well, chronic esteves, bed alarm on and call tao in reach
[2025-03-31] MEDS: NOVOLIN N vial 0.08 UNITS SC (22:50)
[2025-03-31] MEDS: NOVOLOG FLEXPEN 4 UNITS SC (22:50)
--- NOTE | 2025-03-31 23:33 | PTCARENOTE ---
pt appears to be resting in bed comfortably, pt repositioned in bed q2h, call tao in reach
[2025-04-01] VITALS (35 sets, daily range): BP systolic 91–150; BP diastolic 56–95; BMI 20.9
[2025-04-01 05:03] LABS: Calcium 8.2 mg/dl (8.4-10.2); Carbon Dioxide 21 mmol/L (22-30); Chloride 108 mmol/L (98-107); Estimated Creatinine Clearance 16 ml/min; Glucose 148 mg/dl (70-99); Potassium 4.5 mmol/L (3.5-5.1); Sodium 143 mmol/L (135-145); eGFR 16.46
[2025-04-01 05:07] LABS: Hematocrit 28.9 % (39.0-52.0); Hemoglobin 9.2 g/dL (13.0-18.0); Mean Corp Hgb Conc. 31.8 g/dL (33.0-37.0); Mean Corpuscular Volume 94.4 fL (80.0-94.0); Platelet Count 180 10^3/uL (130-400); Red Cell Dist. Width 16.6 % (11.5-14.5)
[2025-04-01 05:10] LABS: Blood Urea Nitrogen 173 mg/dl (9-20)
--- NOTE | 2025-04-01 05:11 | PTCARENOTE ---
no changes from prior assessment, pt appears to be resting comfortably in bed, call tao in reach
[2025-04-01 07:55] LABS: Glucose - Point of Care 176 mg/dl (70-99)
[2025-04-01] MEDS: LANTUS 0.12 UNITS SC (08:00)
[2025-04-01] MEDS: NOVOLOG FLEXPEN-HIGH RESISTANCE 2 UNITS SC ×2 (08:01→11:20)
[2025-04-01] MEDS: CELLCEPT 1000 MG PO ×2 (08:12→19:52)
[2025-04-01] MEDS: DELTASONE 30 MG PO (08:13)
[2025-04-01] MEDS: MIRALAX 17 GRAMS PO (08:13)
[2025-04-01] MEDS: SENOKOT-S 1 TABLET PO ×2 (08:13→19:53)
[2025-04-01] MEDS: BACTROBAN 2% OINTMENT 1 APPLIC NASAL ×2 (08:13→19:53)
[2025-04-01] MEDS: ELIQUIS 5 MG PO ×2 (08:13→19:52)
--- NOTE | 2025-04-01 08:15 | PTCARENOTE ---
Rec'd care of patient at 0700. Patient drowsy. Very flat/withdrawn. Generalized weakness, requiring moderate assistance with turns in bed. Afib/aflutter, 100-110's. Pulse ox 92-93% on RA. Lung sounds diminished with bibasilar crackles. Patient
having difficulty speaking due to respiratory status. Breathing labored. Tachypneic and dyspneic following any exertion. +BS. Appetite remains poor. TFs maintained. Disla draining tea output. Plan for HD following catheter exchange.
--- NOTE | 2025-04-01 08:22 | W.PN.HOSP.TC ---
Today's Communication/Plan
-
Could not tolerate HD so HD stopped
Will need inpatient TAVR/BAVR
Assessment / Plan
Assessment / Plan
Physical Exam
General: No Apparent Distress
HEENT: NormoCephalic, Moist mucous membranes,
Respiratory: Rhonchi's, nasal cannula, R chest wall HD catheter noted
Cardiac: S1/S2, Regular Rhythm and Murmur (3 out of 6 systolic murmur)
GI: Soft, Non Tender, Non Distended and Normal Bowel Sounds
-esteves
Skin: Warm. Dry.
Neuro: AAO x 3
Assessment/Plan
79-year-old with history of end-stage renal disease status post kidney transplant 2018 on antirejection medications, hypertension, hyperlipidemia, atrial fibrillation on Eli, urinary retention status post catheter placement on Saturday presenting
to the emergency department with fever and chills as well as weakness. CT scan consistent with transplant pyelonephritis. He still has persistent hydro which likely reflects chronic hydro compared to his prior ultrasound. Known anemia. Picture
consistent with pyelonephritis with bandemia and lactic acidemia consistent with sepsis.
Acute hypoxic respiratory failure likely Multifactorial secondary to pulmonary edema versus pneumonia versus interstitial lung disease
- intubated 03/21; extubated 03/25
Wean oxygen as tolerated
Off IV steroids on oral steroids
S/p right heart cath, wedge 8, signifies that he is dry, but suspected that he more likely had pulmonary edema (given improved interstitial opacities)
Sepsis shock associated with acute kidney injury, lactic acidosis secondary to Klebsiella bacteremia likely secondary to urinary tract infection
Transplant kidney pyelonephritis with Klebsiella and E. faecalis
Immunosuppressed
suspected acute pulm edema
Pressors remain off but may need during HD (see below)
Continue Unasyn
Epistaxis
Evaluated by ENT, status post left NC packing. now removed. Appears deviated septum per ENT. Monitor
Toxic metabolic encephalopathy likely secondary to shock versus ICU delirium versus hypoxemia versus uremia
appears to be improving when off sedation
Hydronephrosis - Resolving, cannot rule out post obstructive polyuria. Catheter placed by Dr. Jim as outpatient.
Obstructive uropathy of transplant kidney, Esteves placed 03/15/25
- maintain urinary catheter for now
- patient denies any alpha blockade but considering TURP
-Still with hematuria however hemoglobin remained stable
- monitor i/os
- f/u u/s after tx of elizabeth
- continue cardura with hold parameters when able
ELIZABETH only- Persistent ELIZABETH despite Esteves placement. Recent Treatment for rejection in December.
Metabolic acidosis
Required hemodialysis has received multiple session
On temporary hemodialysis catheter
Since HD catheter had been not functioning, it was exchanged on 04/01/25 (today) -- HD today, but patient developed tachycardia and tachypnea during HD
Avoid nephrotoxins hypotension
Severe likely limiting factor for hemodynamic instability during HD -- if cannot tolerate HD (e.g. due to hemodynamic instability), will need inpatient TAVR versus BAVR
donor renal transplant 2019 from [facility]
[employer] resumed 03/30/25 nephrology. On IV steroids
Severe aortic stenosis
- RHC indicates aortic stenosis as source of low cardiac output/cardiogenic shock.
Cardiology recommended TAVR vs BAVR.
- Per ID, Infection is resolved, completing abx course in 1 day -> He is cleared for TAVR from ID perspective -- if cannot tolerate HD, will need inpatient TAVR versus BAVR
Acute blood loss anemia with baseline chronic macrocytic anemia - Macrocytic anemia, recent normal sats but given IV iron infusion without improvement. Denies melena but did have epistaxis as above and also hematuria. Colonoscopy November ->single
non-bleeding colonic angioectasia and internal hemorrhoids. On Eliquis.
- Ferritin level elevated.Received blood transfusion this hospitalization
- type and screen and trend H&H for now
- Transfuse hgb <7
Eliquis resumed
Thrombocytopenia likely secondary to septic shock
-Continue to trend platelets.
AFIB Permanent
- Eliquis resumed. Continue Metoprolol.
Hyperglycemia from Prednisone
-Continue Insulin
Sacrum Stage 2 Pressure Injury
-Wound care
DVT PPX - SCD's. Eliquis
Code status - Full Code
Improving
Anticipated Discharge: > 48 hours
Subjective/Interval History
-
Date of Service: April 01, 2025
Patient was seen and examined. No new symptoms or complaints.
Objective Data
-
Labs:
Laboratory Results
04/01/25
04:25
WBC 15.1 H
Hgb 9.2 L
Hct 28.9 L
Plt Count 180
Sodium 143
Potassium 4.5
Chloride 108 H
Carbon Dioxide 21 L
BUN 173 H*
Creatinine 3.6 H
Glucose 148 H
Calcium 8.2 L
Vital Signs:
Vital Signs
Temp Pulse Resp BP Pulse Ox
96.3 F L 101 28 132/79 93
04/01/25 02:47 04/01/25 08:00 04/01/25 08:00 04/01/25 08:00 04/01/25 08:00
I&O
03/31/25 04/01/25 04/02/25
06:59 06:59 06:59
Intake Total 2079 1230 / 1250 185 / 185
Output Total 1240 / 1240 1175 / 1175
Balance 840 / 860 55 / 75 185 / 185
--- NOTE | 2025-04-01 08:34 | PTCARENOTE ---
Patient transported to IR for HD catheter exchange.
[2025-04-01] MEDS: LOPRESSOR PO (09:05)
--- NOTE | 2025-04-01 09:10 | W.PN.ID1 ---
Date of Service
Date of Service: April 01, 2025
Today's Communication
Continue Unasyn through tomorrow.
Assessment / Plan
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
# Transplant kidney pyelonephritis with Klebsiella and E. faecalis
# Klebsiella bacteremia - source
# Obstructive uropathy of transplant kidney, esteves placed 03/15
# Fever - resolved
# Leukocytosis - due steroids
# s/p Shock
-03/20 Repeat bcx's negative
-03/18 Ucx: Klebsiella and Enterococcus
-Continue Unasyn (d1), renally dosed
# Acute hypoxemic respiratory failure - intubated 03/21; extubated 03/25
# Severe aortic stenosis
- RHC indicates as source of low cardiac output/cardiogenic shock.
Cardiology recommends TAVR vs BAVR.
- Infection is resolved, completing abx course in tomorroe -> He is cleared for TAVR from ID standpoint
# ELIZABETH on CKD
- Renal replacement therapy started 03/20
# Conditions present on admission
donor renal transplant on mycophenolate, belatacept, prednisone 2.5 twice daily 2018
Atrial fibrillation
Post-COVID chronic inflammatory interstitial pneumonitis
Severe aortic stenosis
Hypertension
BPH
Postherpetic neuralgia
Chronic back pain
Chief Complaint
-: UTI
Subjective / Review of Systems
Asking for water
Vital Signs / Physical Exam
Vital Signs
Vital Signs
Temp Pulse Resp BP Pulse Ox
97.5 F 112 33 141/77 94
04/01/25 08:00 04/01/25 09:00 04/01/25 09:00 04/01/25 09:00 04/01/25 09:00
Physical Exam
Constitutional: Chronically Ill
Eyes: No Conjunctival Hemorrhage
Cardiovascular: Regular Rate, S1/S2 and Murmur
Pulmonary: Rales
Gastrointestinal: Soft, Non Tender, Non Distended and Normal Bowel Sounds
Genito-Urinary: Esteves; Negative CVA Tenderness
Extremities: Negative Edema
Neurological: AO x 3
Objective Data
Lab Data
Lab Results
04/01/25 04:25
04/01/25 04:25
ESR 79 mm/hour (0-20) H 03/29/25 02:46
PT 17.8 Sec (11.4-14.6) H 03/24/25 04:05
INR 1.44 03/24/25 04:05
APTT 72.6 Sec (23.4-35.0) H 03/30/25 16:35
Estimated Creat Clear 16 ml/min 04/01/25 04:25
Lactic Acid 1.2 mmol/L (0.7-2.0) 03/19/25 23:40
Total Bilirubin 4.2 mg/dl (0.2-1.3) H 03/28/25 03:27
AST 22 U/L (17-59) 03/28/25 03:27
ALT 34 U/L (0-50) 03/28/25 03:27
Alkaline Phosphatase 82 U/L (38-126) 03/28/25 03:27
C-Reactive Protein 250.80 mg/L (0.0-10.00) H 03/29/25 02:46
Most recent labs reviewed.
Micro Results:
03/20/25 05:07 Blood Culture - Final
Blood/Venous No Growth - Final Report
03/20/25 05:34 Blood Culture - Final
Blood/Venous No Growth - Final Report
03/18/25 18:13 Urine Culture - Final
Urine Klebsiella pneumoniae
Enterococcus faecalis
03/18/25 17:02 Blood Culture - Final
Blood/Venous Klebsiella pneumoniae
Gram Stain - Final
03/18/25 17:01 Blood Culture - Final
Blood/Venous Klebsiella pneumoniae
Gram Stain - Final
03/18/25 23:17 MRSA Screen - Final
Nose No Methicillin Resistant Staphylococcus aureus isolated.
03/18/25 17:03 Influenza Types A & B (NOLVIA) - Final
Nasal Swab Negative for Influenza A & B, NAAT
Negative results must be combined with clinical observations
and patient history.
Nucleic Acid Amplification test (NAAT)performed on the
[employer]ira[employer] platform.
03/31/25 CXR: Slightly improved pulmonary interstitial markings suggesting resolving interstitial edema. Pneumomediastinum without significant change.
03/28/[address]: Mild pneumomediastinum, with superior extension into the fat at the base of the neck, as well as at the posterior and lateral aspect of the right mid to upper thorax. Diffuse bilateral interstitial and groundglass opacity. This
could be related to fluid associated with interstitial and pulmonary edema related to volume overload or congestive heart failure. Alternatively, findings may be infectious in nature related to atypical or viral pneumonitis. No focal dense
consolidation.
03/20/25 CXR: Grossly stable severe diffuse bilateral interstitial and airspace disease which may reflect combination of pulmonary edema and pneumonia. Cannot rule out component of underlying chronic interstitial lung disease.
03/19/25 CXR: Progressive parenchymal disease process, as described. Differential includes progressive congestive heart failure with pulmonary edema versus diffuse bilateral pneumonia, right greater than left.
03/18/25 CT a/p: Severe acute edema and inflammation around the right lower quadrant renal transplant which is new from 12/17/2024. Severe hydronephrosis of the right intrarenal collecting system and right renal pelvis which has increased. ACUTE
PYELONEPHRITIS of the RIGHT LOWER QUADRANT RENAL TRANSPLANT is considered most likely. Acute infarction of the renal transplant is a less likely diagnostic possibility. Severe diffuse urinary bladder wall thickening with surrounding perivesical
inflammation which appears new from 12/17/2024 suggesting SEVERE ACUTE CYSTITIS. Esteves catheter in the urinary bladder. Mildly enlarged prostate gland.
--- NOTE | 2025-04-01 10:14 | W.PN.NEPH.PH ---
Today's Communication / Plan
-
HD trial today
Assessment/Plan
-
This is a 79-year-old gentleman who follows in our office with Dr. Muhammad after donor renal transplant 2019 from [facility]. His transplant course has been complicated by development of nephrotic range proteinuria as well as recent
cellular rejection December of this year. The episodes treated with Solu-Medrol. His creatinine has risen quickly over time in the last several months. He has gone from a creatinine around 2 now up to 4.4. He was noted to have hydronephrosis of
the transplanted kidney recently on ultrasound as well as CT scan. Esteves catheter was placed by urology a few days ago. His appetite has been poor as of late. Recently he also developed fever and malaise and this has brought him to the emergency
room. He was noted to be febrile in the ER. Blood pressure was stable though lower than his home readings of 132. He was 100 systolic in the ER. Creatinine was 4.7 with elevated lactate level and elevated white count. CT of the abdomen and
pelvis were performed with suspicion for pyelonephritis of the transplant. We are asked to assist in management of his renal issues.
Assessment
Sepsis syndrome, possible pyelonephritis
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
donor renal transplant with FSGS, recent T-cell rejection
Obstructive uropathy, Esteves catheter in place
ELIZABETH..
Anemia
Hyponatremia
lactic acidosis
[employer]-He had been making outpatient arrangements for eventual ESRD and transplant evaluation at [facility]/previously on peritoneal dialysis prior to transfer
Plan
ELIZABETH-cr no change at 3.6
worsening azotemia on steroids, no clinical uremia noted , cont MMF
non oliguric, PCWP was at 8 on 03/30 , wt slightly up
Last HD was on 03/26
plan to have HD today
catheter exchanged by IR
wean steroids as able
mild hematuria with esteves-monitor
severe likely likely limiting factor for hemodynamic instability during HD
If he fails HD today likely need intervention this admit per cards
abx per ID
dose meds renally
cont TF through DHT
Reviewed case with ICU and nursing
-
-
Date of Service: April 01, 2025
CC / HPI / ROS
-
Chief Complaint:
Sepsis
History of Present Illness:
Acute kidney injury multifactorial obstructive uropathy, sepsis
BPs table remains off pressors
extubated 03/25, on RA
hb 9.2 stable, 1 PRBC on 03/22
wt is up slightly
Creatinine no change at 3.6 but BUN up at 173
Review of Systems:
non oliguric with esteves
no fever,decondition and NIETO
no pain,
Labs
-
Labs:
WBC 15.1 10^3/uL (4.8-10.8) H 04/01/25 04:25
RBC 3.06 10^6/uL (4.70-6.10) L 04/01/25 04:25
Hgb 9.2 g/dL (13.0-18.0) L 04/01/25 04:25
Hct 28.9 % (39.0-52.0) L 04/01/25 04:25
Plt Count 180 10^3/uL (130-400) 04/01/25 04:25
Sodium 143 mmol/L (135-145) 04/01/25 04:25
Potassium 4.5 mmol/L (3.5-5.1) 04/01/25 04:25
Chloride 108 mmol/L (98-107) H 04/01/25 04:25
Carbon Dioxide 21 mmol/L (22-30) L 04/01/25 04:25
BUN 173 mg/dl (9-20) H* 04/01/25 04:25
Creatinine 3.6 mg/dL (0.7-1.3) H 04/01/25 04:25
eGFR 16.46 04/01/25 04:25
Glucose 148 mg/dl (70-99) H 04/01/25 04:25
Calcium 8.2 mg/dl (8.4-10.2) L 04/01/25 04:25
Phosphorus Cancelled 03/29/25 17:00
Zhr-G-Ydqvlvjagft Pept 02408 pg/ml 03/28/25 03:28
Albumin 2.8 g/dl (3.5-5.0) L 03/28/25 03:27
Physical Exam
-
Vital Signs:
Vital Signs
Temp Pulse Resp BP Pulse Ox
97.5 F 100 21 150/76 94
04/01/25 08:00 04/01/25 11:00 04/01/25 11:00 04/01/25 11:00 04/01/25 11:00
Cardiovascular:: Regular rate and rhythm
Respiratory:: Bilateral: Coarse (much improved from before)
Lung Excursion:: Abnormal
Abdomen:: Nontender and Soft
Extremity Edema:: None: Bilateral:
Esteves Catheter: Yes
Other Findings::
Feeding tube
right IJ catheter
--- NOTE | 2025-04-01 10:56 | CM ---
Still in ICU not ready for DC yet
Accepted by [facility] with HD
When ready for DC will request HP auth
[2025-04-01 11:20] LABS: Glucose - Point of Care 151 mg/dl (70-99)
--- NOTE | 2025-04-01 12:00 | PTCARENOTE ---
Systems reviewed. Patient more lethargic after returning from [facility]. Respiratory status remains tenuous. HD scheduled for 1230.
--- NOTE | 2025-04-01 12:27 | W.PN.INTV ---
Today's Communication / Plan
Recommendations
- Trial of HD, as needed phenylephrine infusion
- Start Lantus 12 units in a.m., will titrate down as prednisone dose drops
- Hold metoprolol in anticipation for HD
Assessment
-
79-year-old male with a 1 pack year smoking history, hypertension, nephrolithiasis, pulmonary nodule, atrial fibrillation, and renal transplantation on mycophenolate and prednisone with recent ultrasound showing transplant hydronephrosis presented
with 2 days of fever found to be septic with ELIZABETH-technology consultant consulted for sepsis/shock/ELIZABETH 03/20/2025.
#1. Septic shock due to UTI/acute pyelonephritis, with Klebsiella bacteremia
- Off pressors now, hemodynamically stable
- 03/30, normal MAP. Shock resolved
- ID service on case, currently on IV Unasyn.
- Klebsiella and Enterococcus on urine cultures
- As needed phenylephrine infusion
#2. Acute hypoxic respiratory failure
- Patient was intubated 03/21, extubated 03/25, continues to require supplemental oxygen, overall improving, decreasing oxygen demand
- Bilateral interstitial opacities, basal predominant with interseptal thickening, suggestive of pulmonary edema versus interstitial lung disease
- Patient has baseline mild reticular changes on imaging suggestive of mild fibrosis, crecent CT was with significant worsening
- Patient has severe aortic stenosis, poor tolerance of HD with significant uremia, fluid overload also was in differential diagnosis
- ILD exacerbation cannot be ruled out, patient empirically started on high-dose IV steroids on 03/28
- 03/30, RHC with PCWP only 8, also f/u CXR with improved interstitial opacities more suggestive of improving pulmonary edema rather than ILD
- Mild pneumomediastinum noted on imaging, suspect related to intubation and mechanical ventilation, follow-up chest x-ray in a.m.
#3. ELIZABETH with hydronephrosis of transplanted kidney
- Severe pyelonephritis as well as obstructive uropathy with hydronephrosis noted on imaging
- S/p Disla catheter placement, essentially anuric
- No renal recovery noted, patient had been initiated on hemodialysis
- Due to poor tolerance of HD, 03/29, transitioned to CRRT. Line clotted, off CRRT since.
- History of renal transplant in 2019. MMF has been resumed per neprhology service.
- 03/30, With low PCWP and low filling pressure, and improving CXR, patient receiving 1 ltr IVF
- 03/31, urine output marginally improved, creatinine continues to be high, BUN continues to climb
- 04/01, IR guided dialysis catheter exchanged in right IJ, scheduled for HD trial
#4. Epistaxis involving left nare s/p rapid Rhino via ENT - rapid rhino removed as of 03/26
- No further epistaxis noted
- Resumed Eliquis, tolerating well
#5. History of pulmonary nodules and baseline mild ILD
- Review of prior imaging shows mild reticular changes mostly in the posterior and basal area
- Concerning for chronic ILD versus early fibrotic changes with prior history of COVID-19
- Patient follows up with Dr. Alex at [facility] pulmonary clinic.
- Connective tissue disease panel negative with normal ROXANNE and rheumatoid factor levels.
- Current worsening concerning for volume overload versus ILD exacerbation.
- 03/30, CXR improving. Lowered steroids to 30 mg daily with tapering over coming days.
- 04/01, continues to do well, will lower prednisone further starting 04/02
#6. Atrial fibrillation with rapid ventricular response
- Continue metoprolol as tolerated (Hold this am for HD)
- Resumed Eliquis.
#7. Severe with cardiogenic shock
- RHC 03/2025, PCWP 8, CI 1.9, SVR 1526.
- 03/30. IVF challenge x 1 ltr
- Tentative TAVR vs BAV in coming days if renal function does not recover, and patient not able to tolerate renal replacement therapy
Conditions present prior to admission:
End-stage renal disease status post renal transplantation-[facility] 2018-follows at [facility]-Dr. Hines and locally Dr. Vernace
Permanent atrial fibrillation/Eliquis.
Hypertension.
BPH.
Postherpetic neuralgia.
Chronic back pain.
Pulmonary nodule right base with negative PET followed by Dr. Olivarez-next CT 02/2025.
Fatty liver.
Inguinal hernia
Osteoporosis.
Hernia repair.
Cataract 2020. Transplant kidney December 2018.
DVT prophylaxis: Eliquis resumed.
Stress ulcer prophylaxis: N/A
FEES 03/29. PO as tolerated
Prognosis unfortunately poor with multiorgan dysfunction-goals of care discussion reviewed on 03/23 with the patient's daughters and with Dr. Genao; they understand that he is critically ill but they would like to continue full medical
management for now and are not interested in withdrawal care. As of 03/24, given that his mental status has improved, I recommend to continue with full aggressive management considering that he is improving.
Unfortunately as of 03/25, he continues to be hypoxic and severely deconditioned after extubation. Goals of care discussion held with the and daughter on 03/25. They would like to continue with full medical care, as the feels that this
is what Johann would have wanted. I also discussed this goals of care with the patient himself and he says to 'do what ever is needed' at this time.
The patient last saw Dr. Olivarez 03/08/2025 for ILD, restrictive lung disease and pulmonary nodule-has appointment for PFT 04/28/2025 at 3 PM [address] appointment [address] Olivarez 04/29/2025 at 11:15 AM
Critical care statement: A total of 45 minutes of critical care time was provided for this patient today. This includes management of unstable vital signs, evaluation of the patient at bedside, reviewing the patient's pertinent medical records
including radiographs, microbiology, laboratory evaluations, and discussion with primary team, consultants, pharmacy, nutrition, physical therapy, case management, charge nurse, critical care nursing, and respiratory therapy.
Office note Dr. Olivarez 03/08/2025 in regards to pulmonary nodule:
CT imaging August 2024 revealed approximately 1.3 cm nodular opacity in the right base, not present on previous exam.
Underwent a repeat CT in November 2024 Showed resolution of previously seen right basilar nodule but a new 1.4 cm nodule in the right lower lobe.
Underwent a PET scan 12/17/2024 which showed evolution of right lower lobe nodule, now presenting as large ground glass nodule measuring up to 3.9 cm. Highly suggestive of benign infectious/inflammatory process.
Repeat CT 02/2025: now demonstrate bilateral peribronchiolar ground glass infiltrate bilaterally.Unclear etiology, differential Dx includes inflammatory/infectious process vs pulmonary edema.there is evidence of small bilateral pleural effusions,
with history of aortic stenosis pulmonary edema except possibility.With ongoind immunosupresion will need to keep in my oportunistic infection.
Will obtain ILD serology, proBNP and inflmmatory markers.
Bronchoscopy with BAL may be required-if there is no evidence of volume overload.-Of note He was treated with an antibiotic and steroids middle of October 2024. He denies any active Symptoms suggesting infection.If He does produce any phlegm, we will
submit sputum culture
Diagnostic data:
CT Chest 03/28/2025- Mild pneumomediastinum, with superior extension into the fat at the base of the neck, as well as at the posterior and lateral aspect of the right mid to upper thorax.
Diffuse bilateral interstitial and groundglass opacity. This could be related to fluid associated with interstitial and pulmonary edema related to volume overload or congestive heart failure. Alternatively, findings may be infectious in nature
related to atypical or viral pneumonitis. No focal dense consolidation.
Chest x-ray 03/18/2025-severe chronic inflammatory interstitial pneumonitis
CT abdomen and pelvis 03/18/2025-severe acute edema and inflammation around right lower quadrant renal transplantation, severe hydronephrosis, severe bilateral atrophic [place] kidneys, small bilateral pleural effusions, increased coarse interstitial
markings throughout both lower lobes, right middle lobe with severe chronic inflammatory interstitial pneumonitis
ILD serology 03/10/2025-negative rheumatoid factor, ROXANNE, SSA antibodies, scleroderma antibody, proteinase [address] chest 02/23/2025 Reviewed Uriel Leong 03/08/2025 06:25:26 AM EDT >1. Resolution of previously seen right lower lobe 1.4 cm nodule.2. Mild to moderate changes of pulmonary fibrosis as seen previously.3. Superimposed upon the changes of
fibrosis, there is new large amount of bilateralperibronchovascular interstitial and groundglass opacity with small amount of bilateral upper lungairspace consolidation as detailed above. There are very small bilateral pleural effusions. Whileedema
is a differential consideration, findings are more suggestive of a superimposed infectious orinflammatory process. There is associated mild mediastinal adenopathy.-
PET CT 12/17/2024 reviewed: Uriel Leong 03/08/2025 06:25:44 AM EDT >The previously seen solid right lower lobe nodule has evolved/changed in morphology, nowpresenting as a large groundglass nodule measuring up to 3.9 cm which demonstrates
max SUV 4.7(delayed 5.4). Otherwise, no suspicious FDG avid lesions.ABDOMEN and PELVIS:No suspicious FDG-avid lesions.SKELETON:No suspicious FDG-avid lesions.This suggests inflammatory process.-
CT chest 2023: Reviewed Uriel Leong 07/05/2023 08:49:26 AM >1. No significant acute abnormality identified in the chest within the limits of unenhanced CT, asdescribed above. Probable residual fibrotic changes in the lungs, less
likely active pneumonitis.-
CT chest 02/27/2023: Reviewed Uriel Leong 03/06/2023 08:42:39 AM >There has been significant further improvement in the patient's bilateral parenchymal airspacedisease when compared with the previous examinations.Currently, there is mild
left and moderate diffuse coarsening of the interstitial markingsthroughout both lungs which at this point may be residual scarring/fibrosis rather than acuteinflammatory disease.There is mild cardiomegalyThere is atherosclerosis-
CT chest 11/23/2022: showed evidence of postinflammatory fibrosis. Groundglass opacities have resolved..
Pulmonary function testing ( 07/13/2024� ):FEV1: 3.4 L-107%FVC:3.96 L-89%FEV1/FVC ratio:86%T.52 L-73%RV:44%ERV:RV/TLC ratio:23%DLCO: 13.69-50%DLCO/VA: 70%
Echo 05/19/24: Normal biventricular size and function. EF 65%. Severely dilated LA. Paradoxical low flow low gradient aortic stenosis. Mild AR.
Subjective Dataa
Subjective Data
Date of Service:
Date of Service: April 01, 2025
Chief Complaint: Locker Operator Follow Up and Pulmonary Follow Up
Subjective:
Patient comfortably lying in bed in no acute distress
Review of Systems
Genitourinary: Other (No new symptoms reported)
Objective Data
Data Reviewed
Vital Signs / I&O / Oxygen:
Vital Signs
Temp Pulse Resp BP Pulse Ox
97.4 F 104 36 132/82 93
04/01/25 12:12 04/01/25 12:00 04/01/25 12:00 04/01/25 12:00 04/01/25 12:00
Intake and Output
03/31/25 04/01/25 04/02/25
06:59 06:59 06:59
Intake Total 2079 / 2099 1230 / 1250 510 / 510
Output Total 1240 / 1240 1175 / 1175 225 / 225
Balance 840 / 860 55 / 75 285 / 285
SaO2 [ASV] 98
SaO2 [A/C] 96
SaO2 [NIV (Non Invasive 97
Ventilation)]
SaO2 93
Nasal Cannula flow liters per 4
minute
Physical Exam
General: Respiratory Distress (negative), Comfortable, Chills (negative) and Sweats (negative)
HEENT: Normocephalic and Anicteric
Cardiovascular: Irregular Rhythm (Irregularly irregular) and Peripheral Edema (negative)
Respiratory: Wheeze (n), Crackles (Significantly improved), Rhonchi (n), Non-Labored Respirations, Stridor (n) and Other (Bubbling in right hemithorax)
GI: Soft, Non Distended, Non Tender and Normal Bowel Sounds
Neurology: Tremors (negative) and Other (Somnolent although easily arousable to voice and tactile stimulation, answering questions appropriately)
Skin: Warm, Dry, Cyanosis (n), Jaundice (n) and Rash (n)
Labs/Micro/Reports
Lab Data
04/01/25 04:25
04/01/25 04:25
[2025-04-01] MEDS: FLEXBUMIN 25% FOR HEMODIALYSIS 12.5 GRAMS IV ×2 (13:35→14:25)
[2025-04-01] MEDS: MANNITOL 25% 12.5 GRAMS IV ×2 (13:39→14:25)
--- NOTE | 2025-04-01 14:29 | W.PN.NEPH.HD ---
Assessment
-
pt seen during HD
BP decrease with UF , hence lowered UF goal
mild tachy , monitor
prn pressors for hypotension
CVC functions fine
low bld flow and dialysate with sig azotemia
Progress Note - Hemodialysis
-
Date of Service: April 01, 2025
Duration: 30 minutes and 2 hours
Potassium Bath: 3
Calcium Bath: 2.5
Opti-Dialyzer: 160
Ultrafiltration: Other (1-1.5)
Blood Flow: 300
Dialysate Flow: Other (500)
Heparin: no
EPO: [id number]
--- NOTE | 2025-04-01 14:54 | PTCARENOTE ---
Addendum entered by Ayleen Matthews RN 04/01/25 16:44:
Vitals improved after discontinuation of HD. RR in the low 20's. HR down to 90-100's. BP stable. Pulse ox 88-91%; 2L nc applied.
Original Note:
Patient having increased WOB. RR in the 30's. HR up to the 120-130's. Senior Contract Specialist at bedside. Decision made to stop HD.
[2025-04-01] MEDS: UNASYN IV (15:08)
--- NOTE | 2025-04-01 15:35 | W.PN.UPDATE ---
Update Note
Progress Note Update
Patient evaluated while on HD.
Around senior living through HD, increased respiratory distress noted. Patient tachypneic as well as tachycardic, reporting shortness of breath.
In view of change in patient condition and respiratory distress with tachycardia, decision was made to discontinue further HD
Updated nephrology service. Discussed with cardiology service at bedside.
[2025-04-01 17:07] LABS: Glucose - Point of Care 222 mg/dl (70-99)
[2025-04-01] MEDS: NOVOLOG FLEXPEN-HIGH RESISTANCE 4 UNITS SC (17:15)
--- NOTE | 2025-04-01 17:48 | W.PN.CD ---
Today's Communication / Plan
-
ongoing discussion of possible inpatient TAVR workup
Impression / Plan
-
79M with prior renal transplant in 2019 presenting with septic shock and ELIZABETH now on CRRT. New diagnosis this admission of severe aortic stenosis.
RHC 03/30 demonstrated low filling pressures and low index. Fluids given. Urine output improving a bit and shock has resolved. He has severe .
Attempted HD today but severe tachypnea and tachycardia about fpc through session so aborted.
Despite recovery from shock and fluid resuscitation, he did not tolerate iHD today. My impression is that his severe aortic stenosis is likely contributing to his ongoing failure to tolerate iHD. The patient and family would like to be aggressive.
His best chance for tolerating HD and thus surviving to discharge may be treatment of his . This will be difficult without exposure to iodine contrast which could further worsen his renal function (still makes ~1L urine daily). While non-contrast
workup could be considered with CHRISTOPHER / MRI / extreme low contrast coronary angiography and TAVR, these approaches are suboptimal. In speaking to nephrology and pulmonary today, there is not a great deal of hope that he will recovery significant graft
function, and thus moving forward with expedited inpatient TAVR workup (cath, CTA) followed by inpatient TAVR may be his best hope for survival. Dr. Valera will discuss this with his outpatient tile professional Dr. Muhammad and with his family. If
decision is made to move forward with inpatient TAVR workup, he will go for C and CTA tomorrow.
Septic shock, in setting of pyelonephrosis:
-received IVF, no longer on pressors
-ID following, on antibiotics
Acute respiratory failure:
-now extubated, minimal O2
-CT scan 03/28/25: Mild pneumomediastinum, with superior extension into the fat at the base of the neck, as well as at the posterior and lateral aspect of the right mid to upper thorax. Diffuse bilateral interstitial and groundglass opacity. This
could be related to fluid associated with interstitial and pulmonary edema related to volume overload or congestive heart failure. Alternatively, findings may be infectious in nature related to atypical or viral pneumonitis. No focal dense
consolidation. On IV steroids. On IV abx.
-No volume overload on cath but CXR suggested mild improvement, care per Dr Thorne.
ELIZABETH, hx kidney transplant with evidence for rejection, hydronephrosis with Disla:
-had hemodynamic instability on HD, attempted HD again today after volume resuscitation and again failed
-in discussion with renal, though he still makes urine there is not a great deal of expectation for skilled nursing renal recovery
Aortic stenosis, severe:
-Echo 03/23/25: Normal biventricular size and systolic function. Severe LFLG aortic stenosis: reported mean 39 mmHg (on a long RR interval, looks more like 30 on standard beats, but DVI 0.2 and and estimated SHU 0.46 cms), SVI 17 mL/m2. Unlikely
that anemia is causing significant overestimation of severity. Anemia may produce high gradient with borderline severe valve area that corrects with reduction in flow, but he is already in a low flow state. Severe left atrial enlargement.
Compared to echocardiogram dated 05/19/2024 the valve looks perhaps visually progressed and quantitative severity is increased.
-concern that severe is contributing to shock and failure to tolerate HD
Permanent AFIB:
-On heparin drip rather than Eliquis (per nephro since patient had clotting with initiation of CRRT)
-on metoprolol, rate currently controlled- follow telemetry
-follow telemetry
Anemia:
-improved
-monitor closely now back on AC
Physical Exam
Vital Signs/Labs
Vital Signs
Temp Pulse Resp BP Pulse Ox
36.3 C 103 25 115/65 99
04/01/25 15:21 04/01/25 17:00 04/01/25 17:00 04/01/25 17:00 04/01/25 17:00
03/31/25 04/01/25 04/02/25
06:59 06:59 06:59
Actual Weight 69.3 kg 69.882 kg
04/01/25 04:25
04/01/25 04:25
PT 17.8 Sec (11.4-14.6) H 03/24/25 04:05
INR 1.44 03/24/25 04:05
APTT 72.6 Sec (23.4-35.0) H 03/30/25 16:35
Magnesium 2.6 mg/dl (1.6-2.3) H 03/30/25 02:36
Triglycerides 220 mg/dl (10-149) H 03/27/25 03:27
03/19/25 03/26/25 03/28/25
23:51 03:21 03:28
Hzq-F-Egepkrmmnmc Pept > [id number] [id number]
Physical Exam
Constitutional: Other (tachypneic)
Cardiovascular: Systolic murmur present and Other (tachycardic)
Neuro/Psych: AO x 3
Data Reviewed
-
Date of Service: April 01, 2025
Medical Decision Making: Reviewed Test Results
EKG: Tracing Personally Visualized and interpreted
Labs: Labs Reviewed by me
--- NOTE | 2025-04-01 18:46 | W.PN.UPDATE ---
Update Note
Progress Note Update
Pt became hemodynamically unstable during HD only had 1hr 40min of it before terminating, suspect from critical
reviewed case with cards and since no expected renal recovery from already failing graft and no benefit we will have in waiting to avoid dialysis. hence we decided to proceed with TAVR w/u with contrast studies
I reviewed case with Dr Muhammad who is pt out pt nephrology is in agreement with plan
I also spoke to family- and daughter over phone in detail and explained poor renal prognosis and dialysis is inevitable
I personally spoke to pt as well and explained same
All seem to be in agreement with plan of TAVR w/u
If he meantime need dialysis before TAVR will likely need CRRT
spoke with nursing
TT spent multiple visits 60min
[2025-04-01] MEDS: LOPRESSOR 25 MG PO (19:53)
--- NOTE | 2025-04-01 20:39 | PTCARENOTE ---
Pt received start of shift, HR afib on telemetry. AAOx3. Pt drowsy and fatigued, awakens to verbal. NIETO, tachypneic. Crackles/coarse auscultated b/l alf up lungs. RA POX 94%. NGT R nare @ 65cm w/ nepro TF infusing as ordered. + bowel sounds.
Disla draining tea colored urine.
[2025-04-01 21:52] LABS: Glucose - Point of Care 174 mg/dl (70-99)
[2025-04-01] MEDS: NOVOLOG FLEXPEN 2 UNITS SC (22:10)
[2025-04-01] MEDS: MELATONIN 5 MG PO (22:10)
[2025-04-02] VITALS (35 sets, daily range): BP systolic 100–140; BP diastolic 51–84; PULSE 106–115; O2SAT 94–95; BMI 20.5
--- NOTE | 2025-04-02 01:07 | PTCARENOTE ---
Pt RR less tachypneic. Maintaining POX>94% RA. Disla output as documented in I&Os. Repositioning for comfort. Call tao within reach.
[2025-04-02 04:23] LABS: Hematocrit 26.0 % (39.0-52.0); Hemoglobin 8.3 g/dL (13.0-18.0); Mean Corp Hgb Conc. 31.9 g/dL (33.0-37.0); Mean Corpuscular Volume 95.2 fL (80.0-94.0); Platelet Count 140 10^3/uL (130-400); Red Cell Dist. Width 16.8 % (11.5-14.5)
[2025-04-02 04:46] LABS: Calcium 7.8 mg/dl (8.4-10.2); Carbon Dioxide 25 mmol/L (22-30); Chloride 107 mmol/L (98-107); Estimated Creatinine Clearance 20 ml/min; Glucose 130 mg/dl (70-99); Potassium 4.3 mmol/L (3.5-5.1); Sodium 141 mmol/L (135-145); eGFR 20.49
[2025-04-02 04:47] LABS: Blood Urea Nitrogen 124 mg/dl (9-20)
--- NOTE | 2025-04-02 05:47 | PTCARENOTE ---
AM labs drawn and sent. Pt attempt BM x2 - only one smear after efforts. Bloody drainage noted from L nostril - cleaned with saline + sterile gauze; no further drainage. No further changes in assessment.
--- NOTE | 2025-04-02 07:53 | W.PN.NEPH.PH ---
Today's Communication / Plan
-
Conventional dialysis will no longer be offered
If patient requires urgent dialysis CRRT will be provided to bridge till TAVR
If TAVR cannot be performed following cardiac catheterization then patient will have to pursue palliative care
Assessment/Plan
-
This is a 79-year-old gentleman who follows in our office with Dr. Muhammad after donor renal transplant 2018 from [facility]. His transplant course has been complicated by development of nephrotic range proteinuria as well as recent
cellular rejection December of this year. The episodes treated with Solu-Medrol. His creatinine has risen quickly over time in the last several months. He has gone from a creatinine around 2 now up to 4.4. He was noted to have hydronephrosis of
the transplanted kidney recently on ultrasound as well as CT scan. Esteves catheter was placed by urology a few days ago. His appetite has been poor as of late. Recently he also developed fever and malaise and this has brought him to the emergency
room. He was noted to be febrile in the ER. Blood pressure was stable though lower than his home readings of 132. He was 100 systolic in the ER. Creatinine was 4.7 with elevated lactate level and elevated white count. CT of the abdomen and
pelvis were performed with suspicion for pyelonephritis of the transplant. We are asked to assist in management of his renal issues.
Assessment
Sepsis syndrome, possible pyelonephritis
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
donor renal transplant with FSGS, recent T-cell rejection
Obstructive uropathy, Esteves catheter in place
ELIZABETH..
Anemia
Hyponatremia
lactic acidosis
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
Plan
Patient failed on dialysis hemodynamically due to aortic stenosis
Conventional dialysis could not be offered for the patient
If dialysis required over weekend we will have to initiate CRRT to bridge to TAVR
worsening azotemia on steroids, no clinical uremia noted , cont MMF
non oliguric, PCWP was at 8 on 03/30 , wt slightly up
wean steroids as able
mild hematuria with esteves-monitor
severe likely likely limiting factor for hemodynamic instability during HD
abx per ID
dose meds renally
cont TF through DHT
Patient is at high clinical risk with ongoing acute renal failure with persistent azotemia and hemodynamic instability with dialysis
Reviewed case with ICU and nursing
-
-
Date of Service: April 02, 2025
CC / HPI / ROS
-
Chief Complaint:
Sepsis
History of Present Illness:
Acute kidney injury multifactorial obstructive uropathy, sepsis
BPs table remains off pressors
extubated 03/25, on RA
hb 8.3 stable, 1 PRBC on 03/22
Creatinine no change at 3.0but BUN up at 124
Review of Systems:
non oliguric with esteves
no fever,decondition and NIETO
no pain,
Labs
-
Labs:
WBC 13.4 10^3/uL (4.8-10.8) H 04/02/25 03:58
RBC 2.73 10^6/uL (4.70-6.10) L 04/02/25 03:58
Hgb 8.3 g/dL (13.0-18.0) L 04/02/25 03:58
Hct 26.0 % (39.0-52.0) L 04/02/25 03:58
Plt Count 140 10^3/uL (130-400) D 04/02/25 03:58
Sodium 141 mmol/L (135-145) 04/02/25 03:58
Potassium 4.3 mmol/L (3.5-5.1) 04/02/25 03:58
Chloride 107 mmol/L (98-107) 04/02/25 03:58
Carbon Dioxide 25 mmol/L (22-30) 04/02/25 03:58
BUN 124 mg/dl (9-20) H* 04/02/25 03:58
Creatinine 3.0 mg/dL (0.7-1.3) H 04/02/25 03:58
eGFR 20.49 04/02/25 03:58
Glucose 130 mg/dl (70-99) H 04/02/25 03:58
Calcium 7.8 mg/dl (8.4-10.2) L 04/02/25 03:58
Phosphorus Cancelled 03/29/25 17:00
Gsz-X-Uszhpeechaz Pept 29157 pg/ml 03/28/25 03:28
Albumin 2.8 g/dl (3.5-5.0) L 03/28/25 03:27
Physical Exam
-
Vital Signs:
Vital Signs
Temp Pulse Resp BP Pulse Ox
98.1 F 100 23 122/67 92
04/01/25 23:00 04/02/25 06:00 04/02/25 06:00 04/02/25 06:00 04/02/25 06:00
Cardiovascular:: Regular rate and rhythm
Respiratory:: Bilateral: Coarse (much improved from before)
Lung Excursion:: Abnormal
Abdomen:: Nontender and Soft
Extremity Edema:: None: Bilateral:
Esteves Catheter: Yes
Other Findings::
Feeding tube
right IJ catheter
[2025-04-02 08:28] LABS: Glucose - Point of Care 163 mg/dl (70-99)
--- NOTE | 2025-04-02 08:59 | W.PN.ID1 ---
Date of Service
Date of Service: April 02, 2025
Today's Communication
-Last day of Unasyn ()
- ID will sign off. Call prn
Assessment / Plan
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
# Transplant kidney pyelonephritis with Klebsiella and E. faecalis
# Klebsiella bacteremia - source
# Obstructive uropathy of transplant kidney, esteves placed 03/15
# Fever - resolved
# Leukocytosis - due steroids
# s/p Shock
-03/20 Repeat bcx's negative
-03/18 Ucx: Klebsiella and Enterococcus
-Last day of Unasyn ()
# Acute hypoxemic respiratory failure - intubated 03/21; extubated 03/25
# Severe aortic stenosis
- RHC indicates as source of low cardiac output/cardiogenic shock.
Cardiology recommends TAVR
He is cleared for TAVR from ID standpoint
- TAVR workup in progress.
# ELIZABETH on CKD
- Renal replacement therapy started 03/20
- no HD dependent
ID will sign off. Call prn.
# Conditions present on admission
donor renal transplant on mycophenolate, belatacept, prednisone 2.5 twice daily 2018
Atrial fibrillation
Post-COVID chronic inflammatory interstitial pneumonitis
Severe aortic stenosis
Hypertension
BPH
Postherpetic neuralgia
Chronic back pain
Chief Complaint
-: UTI
Subjective / Review of Systems
Thirsty, asking for water.
Vital Signs / Physical Exam
Vital Signs
Vital Signs
Temp Pulse Resp BP Pulse Ox
97.5 F 95 19 113/73 95
04/02/25 08:20 04/02/25 08:00 04/02/25 08:00 04/02/25 08:00 04/02/25 08:00
Physical Exam
Cardiovascular: Irregular Rate and Murmur
Pulmonary: Rales and Other (labored)
Gastrointestinal: Soft, Non Tender and Non Distended
Genito-Urinary: Esteves
Neurological: Awake and Alert
Lines: Other (RIJ HD cath no erythema)
Objective Data
Lab Data
Lab Results
04/02/25 03:58
04/02/25 03:58
ESR 79 mm/hour (0-20) H 03/29/25 02:46
PT 17.8 Sec (11.4-14.6) H 03/24/25 04:05
INR 1.44 03/24/25 04:05
APTT 72.6 Sec (23.4-35.0) H 03/30/25 16:35
Estimated Creat Clear 20 ml/min 04/02/25 03:58
Lactic Acid 1.2 mmol/L (0.7-2.0) 03/19/25 23:40
Total Bilirubin 4.2 mg/dl (0.2-1.3) H 03/28/25 03:27
AST 22 U/L (17-59) 03/28/25 03:27
ALT 34 U/L (0-50) 03/28/25 03:27
Alkaline Phosphatase 82 U/L (38-126) 03/28/25 03:27
C-Reactive Protein 250.80 mg/L (0.0-10.00) H 03/29/25 02:46
Most recent labs reviewed.
Micro Results:
03/20/25 05:07 Blood Culture - Final
Blood/Venous No Growth - Final Report
03/20/25 05:34 Blood Culture - Final
Blood/Venous No Growth - Final Report
03/18/25 18:13 Urine Culture - Final
Urine Klebsiella pneumoniae
Enterococcus faecalis
03/18/25 17:02 Blood Culture - Final
Blood/Venous Klebsiella pneumoniae
Gram Stain - Final
03/18/25 17:01 Blood Culture - Final
Blood/Venous Klebsiella pneumoniae
Gram Stain - Final
03/18/25 23:17 MRSA Screen - Final
Nose No Methicillin Resistant Staphylococcus aureus isolated.
03/18/25 17:03 Influenza Types A & B (NOLVIA) - Final
Nasal Swab Negative for Influenza A & B, NAAT
Negative results must be combined with clinical observations
and patient history.
Nucleic Acid Amplification test (NAAT)performed on the
[employer] platform.
03/31/25 CXR: Slightly improved pulmonary interstitial markings suggesting resolving interstitial edema. Pneumomediastinum without significant change.
03/28/[address]: Mild pneumomediastinum, with superior extension into the fat at the base of the neck, as well as at the posterior and lateral aspect of the right mid to upper thorax. Diffuse bilateral interstitial and groundglass opacity. This
could be related to fluid associated with interstitial and pulmonary edema related to volume overload or congestive heart failure. Alternatively, findings may be infectious in nature related to atypical or viral pneumonitis. No focal dense
consolidation.
03/20/25 CXR: Grossly stable severe diffuse bilateral interstitial and airspace disease which may reflect combination of pulmonary edema and pneumonia. Cannot rule out component of underlying chronic interstitial lung disease.
03/19/25 CXR: Progressive parenchymal disease process, as described. Differential includes progressive congestive heart failure with pulmonary edema versus diffuse bilateral pneumonia, right greater than left.
03/18/25 CT a/p: Severe acute edema and inflammation around the right lower quadrant renal transplant which is new from 12/17/2024. Severe hydronephrosis of the right intrarenal collecting system and right renal pelvis which has increased. ACUTE
PYELONEPHRITIS of the RIGHT LOWER QUADRANT RENAL TRANSPLANT is considered most likely. Acute infarction of the renal transplant is a less likely diagnostic possibility. Severe diffuse urinary bladder wall thickening with surrounding perivesical
inflammation which appears new from 12/17/2024 suggesting SEVERE ACUTE CYSTITIS. Esteves catheter in the urinary bladder. Mildly enlarged prostate gland.
[2025-04-02] MEDS: LANTUS 0.12 UNITS SC (09:34)
[2025-04-02] MEDS: DELTASONE 30 MG PO (09:35)
[2025-04-02] MEDS: CELLCEPT 1000 MG PO ×2 (09:35→19:37)
[2025-04-02] MEDS: MIRALAX 17 GRAMS PO (09:35)
[2025-04-02] MEDS: LOPRESSOR 25 MG PO ×2 (09:35→19:37)
[2025-04-02] MEDS: NOVOLOG FLEXPEN-HIGH RESISTANCE 2 UNITS SC ×2 (09:36→12:06)
[2025-04-02] MEDS: ELIQUIS 5 MG PO (09:36)
[2025-04-02] MEDS: SENOKOT-S 1 TABLET PO ×2 (09:36→19:37)
[2025-04-02] MEDS: BACTROBAN 2% OINTMENT 1 APPLIC NASAL (09:37)
--- NOTE | 2025-04-02 10:35 | W.PN.CD ---
Today's Communication / Plan
-
cor angio today
TAVR CT scan over weekend
Impression / Plan
-
79M with prior renal transplant in 2019 presenting with septic shock and ELIZABETH now on CRRT. New diagnosis this admission of severe aortic stenosis.
RHC 03/30 demonstrated low filling pressures and low index. Fluids given. Urine output improving a bit and shock has resolved. He has severe .
Attempted HD yesterday but severe tachypnea and tachycardia about care home through session so aborted.
Multidisiplinary discussion with renal, pul crit care, cardiology, patient, and family. Consensus that patient's best change at recovery is treatment of his aortic valve stenosis with TAVR to improve hemodynamic tolerance of iHD. This will require
iodinated contrast for CT and cath, which may worsen his minimal residual graft function. Renal does not feel that he has a meaningful chance for significant renal recovery and agrees that prioritizing tolerance of iHD with TAVR is priority, even if
graft function further worsens. Will proceed with [facility] today and arrange for TAVR CT chest/abdomen/pelvis this weekend to facilitate possible TAVR valve procedure next week. Will also need dental clearance prior to valve replacement.
Septic shock, in setting of pyelonephrosis:
-received IVF, no longer on pressors
-ID following, on antibiotics
Acute respiratory failure:
-now extubated, minimal O2
-CT scan 03/28/25: Mild pneumomediastinum, with superior extension into the fat at the base of the neck, as well as at the posterior and lateral aspect of the right mid to upper thorax. Diffuse bilateral interstitial and groundglass opacity. This
could be related to fluid associated with interstitial and pulmonary edema related to volume overload or congestive heart failure. Alternatively, findings may be infectious in nature related to atypical or viral pneumonitis. No focal dense
consolidation. On IV steroids. On IV abx.
-No volume overload on cath but CXR suggested mild improvement, care per Dr Thorne.
ELIZABETH, hx kidney transplant with evidence for rejection, hydronephrosis with Disla:
-had hemodynamic instability on HD, attempted HD again today after volume resuscitation and again failed
-in discussion with renal, though he still makes urine there is not a great deal of expectation for long-term renal recovery
Aortic stenosis, severe:
-Echo 03/23/25: Normal biventricular size and systolic function. Severe LFLG aortic stenosis: reported mean 39 mmHg (on a long RR interval, looks more like 30 on standard beats, but DVI 0.2 and and estimated SHU 0.46 cms), SVI 17 mL/m2. Unlikely
that anemia is causing significant overestimation of severity. Anemia may produce high gradient with borderline severe valve area that corrects with reduction in flow, but he is already in a low flow state. Severe left atrial enlargement.
Compared to echocardiogram dated 05/19/2024 the valve looks perhaps visually progressed and quantitative severity is increased.
-concern that severe is contributing to shock and failure to tolerate HD
Permanent AFIB:
-On heparin drip rather than Eliquis (per nephro since patient had clotting with initiation of CRRT)
-on metoprolol, rate currently controlled- follow telemetry
-follow telemetry
Anemia:
-improved
-monitor closely now back on AC
Physical Exam
Vital Signs/Labs
Vital Signs
Temp Pulse Resp BP Pulse Ox
36.4 C 106 19 132/68 95
04/02/25 08:20 04/02/25 09:35 04/02/25 08:00 04/02/25 09:35 04/02/25 08:00
04/01/25 04/02/25 04/03/25
06:59 06:59 06:59
Actual Weight 69.882 kg 68.5 kg
04/02/25 03:58
04/02/25 03:58
PT 17.8 Sec (11.4-14.6) H 03/24/25 04:05
INR 1.44 03/24/25 04:05
APTT 72.6 Sec (23.4-35.0) H 03/30/25 16:35
Magnesium 2.6 mg/dl (1.6-2.3) H 03/30/25 02:36
Triglycerides 220 mg/dl (10-149) H 03/27/25 03:27
03/19/25 03/26/25 03/28/25
23:51 03:21 03:28
Jet-K-Acoyfdbtxcj Pept > [id number]
Physical Exam
Constitutional: Comfortable
Cardiovascular: Rhythm & rate is regular
Respiratory: Respiratory effort normal
Neuro/Psych: AO x 3
Data Reviewed
-
Date of Service: April 02, 2025
Medical Decision Making: Reviewed Test Results
Labs: Labs Reviewed by me
[2025-04-02] MEDS: UNASYN IV (11:44)
[2025-04-02] MEDS: LOW STRENGTH ASPIRIN 324 MG PO (11:44)
[2025-04-02 12:09] LABS: Glucose - Point of Care 153 mg/dl (70-99)
--- NOTE | 2025-04-02 12:25 | PTCARENOTE ---
Addendum entered by Tree Lizarraga RN 04/02/25 12:55:
As per Dr. Larios' instructions, tube feeds held since 0900 and pt did not have breakfast.
Original Note:
CHG bath, esteves wipes, oral care performed. stat dose Asa administered pre cath as per cards order. Pt and family updated.
--- NOTE | 2025-04-02 13:16 | PTCARENOTE ---
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 Family and pt aware.
--- NOTE | 2025-04-02 13:18 | CM ---
TAVR CT on weekend. Per Nephrology: Conventional dialysis will no longer be offered; If requires urgent dialysis CRRT will be provided to bridge till TAVR; If TAVR cannot be performed following cardiac catheterization then patient will have to
pursue palliative care. Discharge POC: TBD. SNF referrals with HD previously forwarded. HD on hold at this time. Need to revisit after decision to do TAVR or not.
--- NOTE | 2025-04-02 14:15 | ITS.CL.PN ---
Cytology Teacher - Procedure Note
Procedure
Procedure Note:
CARDIAC CATHETERIZATION REPORT
Date of Procedure: 04/02/2025
Referring: Dr. Yuri Larios MD, PhD
Indication: symptomatic severe aortic valve stenosis
PROCEDURE(S)
1. left heart catheterization
2. coronary angiography
ACCESS: 6F right radial artery (closure: radial band)
CATHETERS
1. 6F JR4
2. 6F JL4
MODERATE SEDATION: 25 minutes of moderate sedation was utilized. An independent medical advisor was present to assist with and help manage the patient's level of consciousness and physiologic status.
HEMODYNAMIC DATA
LV 153/5 (EDP 9) mmHg
AO 127/68 (mean 88) mmHg
CORONARY ANGIOGRAPHY
Dominance: Right
LM: short with mild disease
LAD:large vessel giving rise to a dominant S1 and two small diagonal branches before wrapping around the apex. There are mild luminal irregularis only.
LCx: large vessel giving rise to a large OM1, moderate caliber OM2, and small LPL. There is a 40% calcific stenosis in the proximal aspect of OM1 and otherwise trivial luminal irregularities only.
RCA: moderate caliber vessel tortuous proximal course giving rise to a small RPDA. There are mild luminal irregularities only.
RADIATION: dose 182 mGy; DAP 12 Gy*cm2; fluoroscopy time 3.8 min
CONCLUSIONS
1. Nonobstructive coronary artery disease in a right dominant system as described
2. Mildly elevated (inappropriately low in setting of severe ) LV filling pressure. Significant pullback gradient across the aortic valve in setting of known severe aortic valve stenosis. Unable to quantitatively assess degree of aortic stenosis
given variable RR interval in Aflutter.
RECOMMENDATIONS
1. Proceed with workup for TAVR; will plan for TAVR CT scan Saturday/Saturday
2. IV fluids
3. Stop Eliquis and start heparin
4. Start ASA 81 mg daily
Copy to: Dr. Sigifredo Paredes MD (tilting head band sawyer)
Signed: Yuri Larios MD, PhD
--- NOTE | 2025-04-02 14:32 | PTCARENOTE ---
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 See worklist for documentation. Tube feeds resumed at ordered rate. Pt awake and talking with RN, family at
bedside. Per Dr. Larios, he will update family soon.
--- NOTE | 2025-04-02 14:34 | W.PN.INTV ---
Today's Communication / Plan
Recommendations
- Lower prednisone to 20 mg daily for 2 more days then DC
- Await left heart catheterization and CT scan for potential TAVR
Assessment
-
79-year-old male with a 1 pack year smoking history, hypertension, nephrolithiasis, pulmonary nodule, atrial fibrillation, and renal transplantation on mycophenolate and prednisone with recent ultrasound showing transplant hydronephrosis presented
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
#1. Septic shock due to UTI/acute pyelonephritis, with Klebsiella bacteremia
- Off pressors now, hemodynamically stable
- 03/30, normal MAP. Shock resolved
- ID service on case, completed IV Unasyn on 04/02, off antibiotics now
- Klebsiella and Enterococcus on urine cultures
- As needed phenylephrine infusion
#2. Acute hypoxic respiratory failure
- Patient was intubated 03/21, extubated 03/25, continues to require supplemental oxygen, overall improving, decreasing oxygen demand
- Bilateral interstitial opacities, basal predominant with interseptal thickening, suggestive of pulmonary edema versus interstitial lung disease
- Patient has baseline mild reticular changes on imaging suggestive of mild fibrosis, crecent CT was with significant worsening
- Patient has severe aortic stenosis, poor tolerance of HD with significant uremia, fluid overload also was in differential diagnosis
- ILD exacerbation cannot be ruled out, patient empirically started on high-dose IV steroids on 03/28, gradually weaning since, last dose of prednisone 04/03.
- 03/30, RHC with PCWP only 8, also f/u CXR with improved interstitial opacities more suggestive of improving pulmonary edema rather than ILD
- Mild pneumomediastinum noted on imaging, suspect related to intubation and mechanical ventilation, follow-up chest x-ray in a.m.
#3. ELIZABETH with hydronephrosis of transplanted kidney
- Severe pyelonephritis as well as obstructive uropathy with hydronephrosis noted on imaging
- S/p Disla catheter placement, essentially anuric
- No renal recovery noted, patient had been initiated on hemodialysis
- Due to poor tolerance of HD, 03/29, transitioned to CRRT. Line clotted, off CRRT since.
- History of renal transplant in 2019. MMF has been resumed per neprhology service.
- 03/30, With low PCWP and low filling pressure, and improving CXR, patient receiving 1 ltr IVF
- 03/31, urine output marginally improved, creatinine continues to be high, BUN continues to climb
- 04/01, IR guided dialysis catheter exchanged in right IJ, scheduled for HD trial
- 04/01, midway during dialysis, patient became tachycardic, tachypneic with respiratory distress, prematurely had to and hemodialysis followed by clinical improvement.
#4. Epistaxis involving left nare s/p rapid Rhino via ENT - rapid rhino removed as of 03/26
- No further epistaxis noted
- Resumed Eliquis, tolerating well
#5. History of pulmonary nodules and baseline mild ILD
- Review of prior imaging shows mild reticular changes mostly in the posterior and basal area
- Concerning for chronic ILD versus early fibrotic changes with prior history of COVID-19
- Patient follows up with Dr. Alex at [facility] pulmonary clinic.
- Connective tissue disease panel negative with normal ROXANNE and rheumatoid factor levels.
- Current worsening concerning for volume overload versus ILD exacerbation.
- 03/30, CXR improving. Lowered steroids to 30 mg daily with tapering over coming days.
- 04/01, continues to do well, will lower prednisone further starting 04/02
- 04/02, lowered prednisone further down to 20 mg daily for 2 more days
#6. Atrial fibrillation with rapid ventricular response
- Continue metoprolol as tolerated (Hold this am for HD)
- Resumed Eliquis.
#7. Severe with cardiogenic shock
- RHC 03/2025, PCWP 8, CI 1.9, SVR 1526.
- 03/30. IVF challenge x 1 ltr
- Tentative TAVR vs BAV in coming days if renal function does not recover, and patient not able to tolerate renal replacement therapy
Conditions present prior to admission:
End-stage renal disease status post renal transplantation-[facility] 2018-follows at [facility]-Dr. Hines and locally Dr. Muhammad
Permanent atrial fibrillation/Eliquis.
Hypertension.
BPH.
Postherpetic neuralgia.
Chronic back pain.
Pulmonary nodule right base with negative PET followed by Dr. Olivarez-next CT 02/2025.
Fatty liver.
Inguinal hernia
Osteoporosis.
Hernia repair.
Cataract 2020. Transplant kidney December 2018.
DVT prophylaxis: Eliquis resumed.
Stress ulcer prophylaxis: N/A
FEES 03/29. PO as tolerated
Prognosis unfortunately poor with multiorgan dysfunction-goals of care discussion reviewed on 03/23 with the patient's daughters and with Dr. Genao; they understand that he is critically ill but they would like to continue full medical
management for now and are not interested in withdrawal care. As of 03/24, given that his mental status has improved, I recommend to continue with full aggressive management considering that he is improving.
Unfortunately as of 03/25, he continues to be hypoxic and severely deconditioned after extubation. Goals of care discussion held with the and daughter on 03/25. They would like to continue with full medical care, as the feels that this
is what Johann would have wanted. I also discussed this goals of care with the patient himself and he says to 'do what ever is needed' at this time.
The patient last saw Dr. Olivarez 03/08/2025 for ILD, restrictive lung disease and pulmonary nodule-has appointment for PFT 04/28/2025 at 3 PM [address] appointment [address] Olivarez 04/29/2025 at 11:15 AM
Critical care statement: A total of 48 minutes of critical care time was provided for this patient today. This includes management of unstable vital signs, evaluation of the patient at bedside, reviewing the patient's pertinent medical records
including radiographs, microbiology, laboratory evaluations, and discussion with primary team, consultants, pharmacy, nutrition, physical therapy, case management, charge nurse, critical care nursing, and respiratory therapy.
Office note Dr. Olivarez 03/08/2025 in regards to pulmonary nodule:
CT imaging August 2024 revealed approximately 1.3 cm nodular opacity in the right base, not present on previous exam.
Underwent a repeat CT in November 2024 Showed resolution of previously seen right basilar nodule but a new 1.4 cm nodule in the right lower lobe.
Underwent a PET scan 12/17/2024 which showed evolution of right lower lobe nodule, now presenting as large ground glass nodule measuring up to 3.9 cm. Highly suggestive of benign infectious/inflammatory process.
Repeat CT 02/2025: now demonstrate bilateral peribronchiolar ground glass infiltrate bilaterally.Unclear etiology, differential Dx includes inflammatory/infectious process vs pulmonary edema.there is evidence of small bilateral pleural effusions,
with history of aortic stenosis pulmonary edema except possibility.With ongoind immunosupresion will need to keep in my oportunistic infection.
Will obtain ILD serology, proBNP and inflmmatory markers.
Bronchoscopy with BAL may be required-if there is no evidence of volume overload.-Of note He was treated with an antibiotic and steroids middle of October 2024. He denies any active Symptoms suggesting infection.If He does produce any phlegm, we will
submit sputum culture
Diagnostic data:
CT Chest 03/28/2025- Mild pneumomediastinum, with superior extension into the fat at the base of the neck, as well as at the posterior and lateral aspect of the right mid to upper thorax.
Diffuse bilateral interstitial and groundglass opacity. This could be related to fluid associated with interstitial and pulmonary edema related to volume overload or congestive heart failure. Alternatively, findings may be infectious in nature
related to atypical or viral pneumonitis. No focal dense consolidation.
Chest x-ray 03/18/2025-severe chronic inflammatory interstitial pneumonitis
CT abdomen and pelvis 03/18/2025-severe acute edema and inflammation around right lower quadrant renal transplantation, severe hydronephrosis, severe bilateral atrophic [place] kidneys, small bilateral pleural effusions, increased coarse interstitial
markings throughout both lower lobes, right middle lobe with severe chronic inflammatory interstitial pneumonitis
ILD serology 03/10/2025-negative rheumatoid factor, ROXANNE, SSA antibodies, scleroderma antibody, proteinase [address] chest 02/23/2025 Reviewed Uriel Leong 03/08/2025 06:25:26 AM EDT >1. Resolution of previously seen right lower lobe 1.4 cm nodule.2. Mild to moderate changes of pulmonary fibrosis as seen previously.3. Superimposed upon the changes of
fibrosis, there is new large amount of bilateralperibronchovascular interstitial and groundglass opacity with small amount of bilateral upper lungairspace consolidation as detailed above. There are very small bilateral pleural effusions. Whileedema
is a differential consideration, findings are more suggestive of a superimposed infectious orinflammatory process. There is associated mild mediastinal adenopathy.-
PET CT 12/17/2024 reviewed: Uriel Leong 03/08/2025 06:25:44 AM EDT >The previously seen solid right lower lobe nodule has evolved/changed in morphology, nowpresenting as a large groundglass nodule measuring up to 3.9 cm which demonstrates
max SUV 4.7(delayed 5.4). Otherwise, no suspicious FDG avid lesions.ABDOMEN and PELVIS:No suspicious FDG-avid lesions.SKELETON:No suspicious FDG-avid lesions.This suggests inflammatory process.-
CT chest 2023: Reviewed Uriel Leong 07/05/2023 08:49:26 AM >1. No significant acute abnormality identified in the chest within the limits of unenhanced CT, asdescribed above. Probable residual fibrotic changes in the lungs, less
likely active pneumonitis.-
CT chest 02/27/2023: Reviewed Uriel Leong 03/06/2023 08:42:39 AM >There has been significant further improvement in the patient's bilateral parenchymal airspacedisease when compared with the previous examinations.Currently, there is mild
left and moderate diffuse coarsening of the interstitial markingsthroughout both lungs which at this point may be residual scarring/fibrosis rather than acuteinflammatory disease.There is mild cardiomegalyThere is atherosclerosis-
CT chest 11/23/2022: showed evidence of postinflammatory fibrosis. Groundglass opacities have resolved..
Pulmonary function testing ( 07/13/2024� ):FEV1: 3.4 L-107%FVC:3.96 L-89%FEV1/FVC ratio:86%T.52 L-73%RV:44%ERV:RV/TLC ratio:23%DLCO: 13.69-50%DLCO/VA: 70%
Echo 05/19/24: Normal biventricular size and function. EF 65%. Severely dilated LA. Paradoxical low flow low gradient aortic stenosis. Mild AR.
Subjective Dataa
Subjective Data
Date of Service:
Date of Service: April 02, 2025
Chief Complaint: National Account Manager Follow Up and Pulmonary Follow Up
Subjective:
Comfortably sitting in bed in no acute distress.
Review of Systems
Genitourinary: Other (All 14 systems reviewed and negative except as stated above in the history of present illness.)
Objective Data
Data Reviewed
Vital Signs / I&O / Oxygen:
Vital Signs
Temp Pulse Resp BP Pulse Ox
97.6 F 82 21 104/69 97
04/02/25 11:20 04/02/25 14:30 04/02/25 14:30 04/02/25 14:30 04/02/25 14:30
Intake and Output
04/01/25 04/02/25 04/03/25
06:59 06:59 06:59
Intake Total 1230 / 1250 1190 / 1210 185 / 185
Output Total 1175 / 1175 840 / 890 325 / 325
Balance 55 / 75 350 / 320 -140 / -140
SaO2 [ASV] 98
SaO2 [A/C] 96
SaO2 [NIV (Non Invasive 97
Ventilation)]
SaO2 97
Nasal Cannula flow liters per 2
minute
Physical Exam
General: Respiratory Distress (negative), Comfortable, Chills (negative) and Sweats (negative)
HEENT: Normocephalic and Anicteric
Cardiovascular: Irregular Rhythm (Irregularly irregular) and Peripheral Edema (negative)
Respiratory: Wheeze (n), Crackles (Significantly improved), Rhonchi (n), Non-Labored Respirations, Stridor (n) and Other (Bubbling in right hemithorax)
GI: Soft, Non Distended, Non Tender and Normal Bowel Sounds
Neurology: Tremors (negative) and Other (Somnolent although easily arousable to voice and tactile stimulation, answering questions appropriately)
Skin: Warm, Dry, Cyanosis (n), Jaundice (n) and Rash (n)
Labs/Micro/Reports
Lab Data
04/02/25 03:58
04/02/25 03:58
--- NOTE | 2025-04-02 16:10 | PTCARENOTE ---
Pt thirsty and hungry, dinner tray ordered. Pt given thickened water and jello, tolerated well. Family remains at bedside, interviewed by TAVR coordinator. Plan discussed. Dr. Larios also updated family. Pt turned and repositioned, site checks
remain WNL. See flowsheet for documentation of air removal from TR band. Safe environment ongoing.
--- NOTE | 2025-04-02 16:21 | CONSULT.STRU ---
Addendum entered and electronically signed by Liliana Cabrera MD 04/04/25 18:53:
I have seen and examined the patient, agree with documentation below.
Mr. 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
shock in the setting of known aortic stenosis. There has been some improvement in his clinical status though there is no real hope for renal recovery. His is severe which is a significant concern and limitation to his ability to have hemodialysis
which it seems he will most certainly be dependent on. We are evaluating for urgent TAVR given his severe clinical status and current predicament limiting dialysis moving forward. Prior to this he was active and independent, doing well after his
transplant. I agree that TAVR is his best option as he is too critical and would be a very high risk surgical patient. TAVR CT with measurements are pending and we will need to have structural team discussion. We will need to closely discuss his
rescue status as his STS risk is 16% and jumps to 36% if emergent/salvage situation which I believe is underestimated. I have started these discussions with the patient's and daughter and have been tierney that a rescue scenario will result in
poor prognosis and will greatly decrease his quality of life potential should he survive. I will have this discussion with my partners as well and will come to a group consensus on our recommendations regarding rescue status, though I take into
great consideration that family seems on board with extraordinary measures. I attempted to discuss this with the patient as well but it is not clear that he fully understands the circumstances or his full clinical status.
Original Note:
Patient History
Physicians
Family Physician: Neville Kam
Outpatient Welding Technician: none
Primary Welding Technician: none
History of Present Illness
Mr Florentino is a 79-year-old male with history of atrial fibrillation, hypertension, donor renal transplant on mycophenolate, belatacept, prednisone, recent transplant rejection December 2024 and was treated with Solu-Medrol. He presented to
the ED March 18 due to weakness, fever and chills. Patient recently with rising creatinine which led to renal ultrasound and found to have hydronephrosis of the transplanted kidney. Disla catheter placed by urology outpatient on March 15.
Approximately 2 days later, he started feeling unwell with chills, fever, discomfort over the transplant kidney, decreased appetite, decreased urine output. In ED T=100.5, WBC 15.1. CT a/p showed severe pyelonephritis of transplant kidney. Blood
cx's x 2 Klebsiella. ID involved and treating. Non-tunneled right internal jugular hemodialysis catheter was placed on 03/20. Patient began receiving dialysis but challenging due to significant hypotension. Unable to tolerate traditional
hemodialysis. He had an echocardiogram on 03/23 which demonstrated severe aortic stenosis, mean 39 mmHg and estimated SHU 0.46 cmsq. LVEF 60-65%, Mild AI, Moderate MR. Severe left atrial enlargement. RHC on 03/30/2025: normal biventricular filling
pressures with low cardiac index and elevated SVR consistent with cardiogenic shock in setting of known LFLG severe . Left heart cath today: Nonobstructive coronary artery disease in a right dominant system as described. Mildly elevated
(inappropriately low in setting of severe ) LV filling pressure. Significant pullback gradient across the aortic valve in setting of known severe aortic valve stenosis. Unable to quantitatively assess degree of aortic stenosis given variable RR
interval in Aflutter. Spoke with patient's and looking back she says she had noticed some NIETO that started in late spring and early summer as well as regular napping. He did not have any chest pain, palpitations, PND or orthopnea. Prior to all
of this is was active and independent in all his activities.
Past Medical History
Past Medical History: Atrial Fib, CAD, CHF, NIETO, HTN, Renal Failure (h/o renal transplant), Valvular Disease (severe , mild AI, moderate MR, mild TR) and Other (Postherpetic neuralgia, HTN Nephrosclerosis, nephrolithiasis, BPH, secondary
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
Past Surgical History
Cardioversion x1 2017, PD catheter placement, Abdominal hernia repair x2 at time of PD catheter placement, donor kidney transplant December 2018 [place], PD catheter removal December 2018, Transplant kidney biopsy June 2019, Cataract
surgery, bilateral November-December 2020, Transplant kidney biopsy at [place] July 2021, LT L5 TFESI NO SED MRSA PROTOCOL 02/04/23, LT L5 TFESI NO SED 07.03.23, Colonoscopy 2017, Colonoscopy x2 November 2024, Transplant biopsy December 24, 2024
Dental History
Regular dental care - Dr. Rigoberto Polanco
Family History
Mother: N/A
Father: N/A
Social History
Alcohol: Occasional
Drug: None
Tobacco: Former Smoker (smoked for about 1 year)
Personal:
Living: With Spouse
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
Allergies
Allergy/AdvReac Type Severity Reaction Status Date / Time
No Known Drug Allergies Allergy - Verified 03/18/25 16:11
Home Medications
�Medication �Instructions �Recorded �Confirmed �Type
apixaban 5 mg tablet (Eliquis) 5 mg PO BID Blood Clot 08/11/18 03/19/25 History
Prevention/Tx
metoprolol tartrate 25 mg tablet 25 mg PO BID Blood Pressure 03/14/20 03/19/25 History
mycophenolate sodium 180 mg 720 mg PO BID Transplant 03/14/20 03/19/25 History
tablet,delayed release
amlodipine 5 mg tablet 5 mg PO DAILY Blood Pressure 10/04/22 03/19/25 History
cholecalciferol (vitamin D3) 10 10 mcg PO DAILY Supplement 10/04/22 03/19/25 History
mcg (400 unit) capsule (Vitamin D3)
belatacept 250 mg intravenous 450 mg IV QMONTH Transplant 07/22/23 03/19/25 History
solution
doxazosin 2 mg tablet 2 mg PO BID Urinary Issue 07/22/23 03/19/25 History
losartan 50 mg tablet 50 mg PO BID Blood Pressure 07/22/23 03/19/25 History
prednisone 2.5 mg tablet 2.5 mg PO BID Transplant 07/22/23 03/19/25 History
therapeutic multivitamin 1 tab PO DAILY Supplement 07/22/23 03/19/25 History
torsemide 5 mg tablet 5 mg PO SUWE Fluid 02/12/25 03/19/25 History
Retention/Swelling
fluticasone propionate 50 1 spray intranasal BID Allergies 03/24/25 03/24/25 History
mcg/actuation nasal
spray,suspension
sodium chloride 0.65 % nasal spray 2 spray intranasal QID Allergies 03/24/25 03/24/25 History
aerosol
STS%
STS %: 16.3
Review of Systems
-
History Source: Patient and Family
General: Reports Fatigue
HEENT: Reports No Symptoms
Respiratory: Reports NIETO
Cardiac: Denies Palpitations or Edema
Abdomen/GI: Denies Nausea, Vomiting or Diarrhea
: Reports Dysuria
Musculoskeletal: Reports Other (chronic back pain)
Skin: Reports No Symptoms
Neurological: Denies CVA or TIA
Vascular: Reports No Symptoms
Physical Exam
Vital Signs
Temp 97.5 F 04/02/25 15:11
Temp route: Axillary 04/02/25 15:11
Pulse 94 04/02/25 16:00
Rhythm: Atrial fibrillation 04/02/25 07:54
With- PVC's Monomorphic, Atrial flutter 04/02/25 07:54
Resp Rate 25 04/02/25 16:00
Systolic BP: 86 03/24/25 09:10
Blood pressure 123/75 04/02/25 16:00
Blood pressure extremity used: Right upper arm 04/01/25 09:54
Position: Lying 04/01/25 09:54
MAP (cuff-Jose Monitor) 89 04/02/25 16:00
SaO2 96 04/02/25 16:00
Nasal Cannula flow liters per minute 2 04/01/25 20:12
Oxygen Mode of Delivery Room air 04/02/25 12:30
Flow liters per minute # 2 03/30/25 00:37
% Oxygen delivered 40 03/28/25 03:29
Pulse Ox at Rest 94 04/02/25 10:33
Can the patient verbally communicate their pain? Yes 04/02/25 07:54
Pain scale ratin 03/27/25 20:30
Arterial Systolic Pressure 168 03/30/25 09:00
Arterial Diastolic Pressure 74 03/30/25 09:00
MAP (D-Yetf-Euenmej Monitor) 107 03/30/25 09:00
Actual Weight 68.5 kg 04/02/25 06:00
Body Mass Index (BMI) 20.5 04/02/25 06:00
Supine- Blood Pressure 116/73 04/02/25 10:33
Supine- Pulse 106 04/02/25 10:33
Sitting- Blood Pressure 100/81 04/02/25 09:09
Sitting- Pulse 115 04/02/25 09:09
etC02 value 24 03/25/25 13:30
Heart rate after activity 115 04/02/25 10:33
Blood pressure after activity 100/81 04/02/25 10:33
Oxygen Saturation with Activity 92 04/02/25 09:09
Labs
04/02/25 03:58
04/02/25 03:58
PT 17.8 Sec (11.4-14.6) H 03/24/25 04:05
APTT 72.6 Sec (23.4-35.0) H 03/30/25 16:35
Hemoglobin A1c 5.8 % (4.0-5.9) 03/30/25 02:36
Zqk-V-Anfnnfhbuhb Pept 63397 pg/ml 03/28/25 03:28
Arterial Blood Gases
pH 7.38 (7.35-7.45) 03/26/25 03:21
pCO2 31 mmHg (35-48) L 03/26/25 03:21
pO2 87 mmHg (83-108) 03/26/25 03:21
HCO3 18.3 mmol/L (21-28) L 03/26/25 03:21
Base Excess -6.1 mmol/L 03/26/25 03:21
ABG O2 Sat (Measured) 98.3 % (94-98) H 03/26/25 03:21
Sodium 136 mMOL/L (136-145) 03/25/25 04:23
Potassium 4.0 mMOL/L (3.5-5.1) 03/25/25 04:23
O2 Delivery Level 40 03/26/25 03:21
Urinalysis
Urine Color Yellow 03/18/25 18:13
Urine Clarity Cloudy (Clear) 03/18/25 18:13
Urine pH 6.0 (5.0-9.0) 03/18/25 18:13
Ur Specific [place] 1.015 (<1.030) 03/18/25 18:13
Urine Ketones Negative (Negative) 03/18/25 18:13
Ur Occult Blood Reflex 4+ (Negative) A 03/18/25 18:13
Urine Bilirubin Negative (Negative) 03/18/25 18:13
Leukocyte Esterase Rfl 3+ (Negative) A 03/18/25 18:13
Urine RBC /HPF (0-2) 03/18/25 18:13
Urine WBC (Reflex) >100 /HPF (0-5) A 03/18/25 18:13
Ur Squamous Epith Cells /LPF (Few) 03/18/25 18:13
Urine Bacteria (Reflex) Many (Negative) A 03/18/25 18:13
Urine Glucose Negative (Negative) 03/18/25 18:13
Urine Albumin (Reflex) 4+ (Neg - Trace) A 03/18/25 18:13
Diagnostic Studies
03/23/2025 Echocardiogram:
SUMMARY
1. Normal biventricular size and systolic function.
2. Severe aortic stenosis, mean 39 mmHg and estimated SHU 0.46 cmsq. Aortic valve assessment may be affected by anemia (Hgb 7.5).
3. Severe left atrial enlargement.
4. Compared to echocardiogram dated 05/19/2024 the gradient across the aortic valve has increased from 29 mmHg, the aortic valve area was estimated at 0.9 cmsq. The Hgb in 05/2024 was 15.

Transthoracic Echo procedure
A complete Transthoracic Echocardiogram was performed utilizing Two-Dimensional evaluation with color flow and spectral Doppler analysis.
PHYSICIAN INTERPRETATION
Left Ventricle:
Ejection fraction is 60-65% by visual assessment. Left ventricular ejection fraction is normal. There is mild left ventricular hypertrophy. Diastolic function indeterminate due to atrial fibrillation.
Right Ventricle:
Right ventricular size and systolic function are within normal limits.
Left Atrium:
Indexed left atrial volume is severely abnormal (>48 ml/m2).
Right Atrium:
The right atrium is normal in size and structure. The inferior vena cava appears normal.
Interatrial Septum:
The interatrial septum appears normal and intact, with no evidence of interatrial shunting.
Aortic Valve:
Aortic valve is bicuspid. There is severe leaflet thickening. mild aortic regurgitation. The peak aortic valve gradient is 65.6 mmHg. The mean aortic valve gradient is 39.0 mmHg. Estimated aortic valve area - 0.46cm2.
Mitral Valve:
Mitral valve opens normally. There is mild thickening of the mitral valve. mild mitral valve regurgitation.
Tricuspid Valve:
Mild tricuspid regurgitation. Estimated pulmonary artery pressure of 34 mmHg assuming a right atrial pressure of 3 mmHg.
Pulmonic Valve:
Pulmonic valve opens normally.
Aorta:
The aorta, from all segments that were visualized, appears normal in dimension, with no evidence of dilatation or obstruction.
Pericardium:
There is no evidence of pericardial effusion. There is evidence of pleural effusion.

QUANTITATIVE DATA
Left Ventricle Measurements
Normal (Male) Normal (Female)
Internal Diam (Diastole) 5.10 cm 4.2 - 5.9 cm 3.9 - 5.3 cm
Internal Diam (Systole) 3.60 cm 2.3 - 4.7 cm 2.0 - 4.0 cm
IVS (Diastole) 1.00 cm 0.7 - 1.1 cm 0.6 - 1.0 cm
LVPW (Diastole) 1.20 cm 0.7 - 1.1 cm 0.6 - 1.0 cm
LVOT Diam 1.65 cm
Stroke Volume Index 17.2 ml/m²
Aorta Measurements Sinus of Valsalva 3.40 cm Ascending Aorta 3.35 cm
Sinotubular Junction 2.7 cm
Left Atrium Measurements
Volume Index 55.96 ml/m²
Aortic Valve Measurements
Valve Area 0.46 cm² AoV Mean Gradient 39.0 mmHg
AoV Peak Gradient 65.6 mmHg LVOT Mean Gradient 1.0 mmHg
LVOT Peak Gradient 3 mmHg
Tricuspid Valve Measurements
Vmax 2.79 m/s
TR PA Systolic Pressure 31.1 mmHg
04/02/2025 Cardiac Cath:
HEMODYNAMIC DATA
LV 153/5 (EDP 9) mmHg
AO 127/68 (mean 88) mmHg
CORONARY ANGIOGRAPHY
Dominance: Right
LM: short with mild disease
LAD:large vessel giving rise to a dominant S1 and two small diagonal branches before wrapping around the apex. There are mild luminal irregularis only.
LCx: large vessel giving rise to a large OM1, moderate caliber OM2, and small LPL. There is a 40% calcific stenosis in the proximal aspect of OM1 and otherwise trivial luminal irregularities only.
RCA: moderate caliber vessel tortuous proximal course giving rise to a small RPDA. There are mild luminal irregularities only.
RADIATION: dose 182 mGy; DAP 12 Gy*cm2; fluoroscopy time 3.8 min
CONCLUSIONS
1. Nonobstructive coronary artery disease in a right dominant system as described
2. Mildly elevated (inappropriately low in setting of severe ) LV filling pressure. Significant pullback gradient across the aortic valve in setting of known severe aortic valve stenosis. Unable to quantitatively assess degree of aortic stenosis
given variable RR interval in Aflutter.
RECOMMENDATIONS
1. Proceed with workup for TAVR; will plan for TAVR CT scan Saturday/Saturday
2. IV fluids
3. Stop Eliquis and start heparin
4. Start ASA 81 mg daily
Exam
General: Other (frail, calm, in NAD)
HEENT: Normocephalic, PERRLA and EOMI
Neck: Trachea Midline
Respiratory: Crackles (scattered) and Other (decreased bilateral bases)
Cardiac: S1/S2, Irregular Rhythm and Murmur (Grade II/ LIANG)
GI: Soft, Non Tender, Non Distended and Normal Bowel Sounds
Rectal: Deferred by Provider
Skin: Warm and Dry
Neuro: Alert, Oriented and Nonfocal/Grossly Intact
Extremities: Negative Lower Level Edema
Psych: Calm
Assessment / Plan
-
Procedure Type:�Isolated AVR
Perioperative Outcome Estimate %
Operative Mortality 16.3%
Morbidity & Mortality 42.3%
Stroke 7.04%
Renal Failure NA
Reoperation 11.1%
Prolonged Ventilation 29.1%
Deep Sternal Wound Infection 0.071%
Long Hospital Stay (>14 days) 38.5%
Short Hospital Stay (<6 days)* 4.22%
Septic shock, in setting of pyelonephrosis:
-received IVF, no longer on pressors
-ID following, on antibiotics
ELIZABETH, hx kidney transplant with evidence for rejection, hydronephrosis with Disla:
-had hemodynamic instability on HD, attempted HD again today after volume resuscitation and again failed
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
Anemia:
-stable
-monito for signs of bleeding
Permanent AFIB:
-Was on heparin drip rather than Eliquis (per nephro since patient had clotting with initiation of CRRT) but now back on Eliquis
-will need to hold Eliquis if TAVR planned for 04/06, Dr. Larios to address
-on metoprolol, rate currently controlled- follow telemetry
-follow telemetry
Aortic stenosis, severe:
-Echo 03/23/25: Normal biventricular size and systolic function. Severe LFLG aortic stenosis: reported mean 39 mmHg (on a long RR interval, looks more like 30 on standard beats, but DVI 0.2 and and estimated SHU 0.46 cms), SVI 17 mL/m2.
-concern that severe is contributing to failure to tolerate HD
-TAVR CT ordered for Saturday to assess anatomy and if suitable for TAVR given multiple co-morbidities
-Hold Eliquis, start ASA- may resume Eliquis post procedure.
-Regular dental care- will attempt to get clearance on Saturday.
-Structural heart team discussion
Data Reviewed
-
EKG: Report Reviewed by me
Equipment Cleaner And Tester: Report Reviewed by me and Discussed with Physician
Echo: Report Reviewed by me, Discussed with Physician and Discussed with Family
Labs: Labs Reviewed by me and Discussed with Physician
Old Records: Reviewed
Critical Care Time (in minutes): 35
Total Time Spent with Patient (in minutes): 55
--- NOTE | 2025-04-02 16:28 | W.PN.HOSP.TC ---
Today's Communication/Plan
-
See plan
Assessment / Plan
Assessment / Plan
Physical Exam
General: No Apparent Distress
HEENT: NormoCephalic, Moist mucous membranes,
Respiratory: Rhonchi's, nasal cannula, R chest wall HD catheter noted
Cardiac: S1/S2, Regular Rhythm and Murmur (3 out of 6 systolic murmur)
GI: Soft, Non Tender, Non Distended and Normal Bowel Sounds
-esteves
Skin: Warm. Dry.
Neuro: AAO x 3
Assessment/Plan
79-year-old with history of end-stage renal disease status post kidney transplant 2018 on antirejection medications, hypertension, hyperlipidemia, atrial fibrillation on , urinary retention status post catheter placement on Saturday presenting
to the emergency department with fever and chills as well as weakness. CT scan consistent with transplant pyelonephritis. He still has persistent hydro which likely reflects chronic hydro compared to his prior ultrasound. Known anemia. Picture
consistent with pyelonephritis with bandemia and lactic acidemia consistent with sepsis.
Acute hypoxic respiratory failure likely Multifactorial secondary to pulmonary edema versus pneumonia versus interstitial lung disease
- intubated 03/21; extubated 03/25
Wean oxygen as tolerated
Off IV steroids on oral steroids
S/p right heart cath, wedge 8, signifies that he is dry, but suspected that he more likely had pulmonary edema (given improved interstitial opacities)
Sepsis shock associated with acute kidney injury, lactic acidosis secondary to Klebsiella bacteremia likely secondary to urinary tract infection
Transplant kidney pyelonephritis with Klebsiella and E. faecalis
Immunosuppressed
suspected acute pulm edema
Pressors remain off but may need during HD (see below)
Last day of Unasyn -- day , on 04/02/25
Epistaxis
Evaluated by ENT, status post left NC packing. now removed. Appears deviated septum per ENT. Monitor
Toxic metabolic encephalopathy likely secondary to shock versus ICU delirium versus hypoxemia versus uremia
appears to be improving when off sedation
Hydronephrosis - Resolving, cannot rule out post obstructive polyuria. Catheter placed by Dr. Jim as outpatient.
Obstructive uropathy of transplant kidney, Esteves placed 03/15/25
- maintain urinary catheter for now
- patient denies any alpha blockade but considering TURP
-Still with hematuria however hemoglobin remained stable
- monitor i/os
- f/u u/s after tx of elizabeth
- continue cardura with hold parameters when able
ELIZABETH only- Persistent ELIZABETH despite Esteves placement. Recent Treatment for rejection in December.
Metabolic acidosis
Required hemodialysis has received multiple session, but then on 04/02/25 failed on dialysis hemodynamically due to aortic stenosis
On temporary hemodialysis catheter
Since HD catheter had been not functioning, it was exchanged on 04/01/25 (today) -- HD attempt on 04/01/25 resulted in tachycardia and tachypnea during HD -- if patient needs urgent dialysis CRRT will be provided to bridge till TAVR
Avoid nephrotoxins hypotension
Severe likely limiting factor for hemodynamic instability during HD
donor renal transplant 2019 from [facility] resumed 03/30/25 nephrology. On IV steroids
Severe aortic stenosis
- RHC indicates aortic stenosis as source of low cardiac output/cardiogenic shock.
Cardiology recommended TAVR vs BAVR.
- Per ID, Infection is resolved, completing abx course in 1 day -> He is cleared for TAVR from ID perspective -- if cannot tolerate HD, will need inpatient TAVR versus BAVR
- On 04/02/25, cardiac cath performed: it showed nonobstructive coronary artery disease in a right dominant system as described, mildly elevated (inappropriately low in setting of severe ) LV filling pressure.
Significant pullback gradient across the aortic valve in setting of known severe aortic valve stenosis. Unable to quantitatively assess degree of aortic stenosis given variable RR interval in Aflutter.
- Given the above, patient will need IV fluids as per cardiology
- In preparation for TAVR, stop Eliquis and start heparin
- Start ASA 81 mg daily
- Proceed with workup for TAVR; plan for TAVR CT scan on 04/04/25 or 04/05/25
Acute blood loss anemia with baseline chronic macrocytic anemia - Macrocytic anemia, recent normal sats but given IV iron infusion without improvement. Denies melena but did have epistaxis as above and also hematuria. Colonoscopy November ->single
non-bleeding colonic angioectasia and internal hemorrhoids. On Eliquis.
- Ferritin level elevated.Received blood transfusion this hospitalization
- type and screen and trend H&H for now
- Transfuse hgb <7
Eliquis resumed
Thrombocytopenia likely secondary to septic shock
-Continue to trend platelets.
AFIB Permanent
- Eliquis resumed. Continue Metoprolol.
Hyperglycemia from Prednisone
-Continue Insulin
Sacrum Stage 2 Pressure Injury
-Wound care
DVT PPX - SCD's. Eliquis
Code status - Full Code
Cardiac cath and hemodynamic instability with dialysis and needing IV fluids is a high risk encounter.
Anticipated Discharge: > 48 hours
Subjective/Interval History
-
Date of Service: April 02, 2025
Patient was seen and examined. No new symptoms or complaints.
Objective Data
-
Labs:
Laboratory Results
04/02/25
03:58
Sodium 141
Potassium 4.3
Chloride 107
Carbon Dioxide 25
BUN 124 H*
Creatinine 3.0 H
Glucose 130 H
Calcium 7.8 L
Vital Signs:
Vital Signs
Temp Pulse Resp BP Pulse Ox
97.5 F 94 25 123/75 96
04/02/25 15:11 04/02/25 16:00 04/02/25 16:00 04/02/25 16:00 04/02/25 16:00
I&O
04/01/25 04/02/25 04/03/25
06:59 06:59 06:59
Intake Total 1230 / 1250 1190 / 1210 819 / 819
Output Total 1175 / 1175 840 / 890 510 / 510
Balance 55 / 75 350 / 320 309 / 309
[2025-04-02] MEDS: NOVOLOG FLEXPEN-HIGH RESISTANCE 4 UNITS SC (17:23)
[2025-04-02] MEDS: LR 1000 IV (17:24)
[2025-04-02 17:25] LABS: Hematocrit 25.8 % (39.0-52.0); Hemoglobin 8.0 g/dL (13.0-18.0); Mean Corp Hgb Conc. 31.0 g/dL (33.0-37.0); Mean Corpuscular Volume 99.2 fL (80.0-94.0); Platelet Count 134 10^3/uL (130-400); Red Cell Dist. Width 17.1 % (11.5-14.5)
[2025-04-02 17:26] LABS: Glucose - Point of Care 216 mg/dl (70-99)
[2025-04-02 17:36] LABS: APTT 29.1 Sec (23.4-35.0)
--- NOTE | 2025-04-02 17:39 | PTCARENOTE ---
orders rec'd and carried out. Labs drawn and sent, IVF initiated as ordered.
[2025-04-02] MEDS: MELATONIN 5 MG PO (19:38)
[2025-04-02] MEDS: HEPARIN 25000 UNITS/250 ML IV (22:04)
[2025-04-03] VITALS (24 sets, daily range): BP systolic 100–143; BP diastolic 54–84; BMI 20.6
--- NOTE | 2025-04-03 00:36 | PTCARENOTE ---
No changes w. patient assessment.
[2025-04-03] MEDS: DILAUDID 0.5 MG IV ×2 (00:45→08:29)
--- NOTE | 2025-04-03 04:17 | PTCARENOTE ---
Lower back pain, PRNs ordered.
No further changes in assessment.
[2025-04-03 04:51] LABS: Hematocrit 23.9 % (39.0-52.0); Hemoglobin 7.6 g/dL (13.0-18.0); Mean Corp Hgb Conc. 31.8 g/dL (33.0-37.0); Mean Corpuscular Volume 96.4 fL (80.0-94.0); Platelet Count 123 10^3/uL (130-400); Red Cell Dist. Width 17.0 % (11.5-14.5)
[2025-04-03 04:52] LABS: INR 1.29; PT 16.4 Sec (11.4-14.6)
[2025-04-03 04:53] LABS: APTT 38.3 Sec (23.4-35.0)
[2025-04-03 05:20] LABS: Calcium 7.5 mg/dl (8.4-10.2); Carbon Dioxide 25 mmol/L (22-30); Chloride 107 mmol/L (98-107); Estimated Creatinine Clearance 20 ml/min; Glucose 145 mg/dl (70-99); Potassium 4.1 mmol/L (3.5-5.1); Sodium 141 mmol/L (135-145); eGFR 21.34
[2025-04-03 05:25] LABS: Blood Urea Nitrogen 130 mg/dl (9-20)
[2025-04-03] MEDS: LR 1000 IV ×2 (05:51→18:11)
--- NOTE | 2025-04-03 07:27 | W.PN.INTV ---
Today's Communication / Plan
Recommendations
- Continue gentle IV hydration and heparin infusion
- Last day of high-dose prednisone on 04/04
Assessment
-
79-year-old male with a 1 pack year smoking history, hypertension, nephrolithiasis, pulmonary nodule, atrial fibrillation, and renal transplantation on mycophenolate and prednisone with recent ultrasound showing transplant hydronephrosis presented
with 2 days of fever found to be septic with ELIZABETH-cardiopulmonary technologist chief consulted for sepsis/shock/ELIZABETH 03/20/2025.
#1. Septic shock due to UTI/acute pyelonephritis, with Klebsiella bacteremia
- Off pressors now, hemodynamically stable
- 03/30, normal MAP. Shock resolved
- ID service on case, completed IV Unasyn on 04/02, off antibiotics now
- Klebsiella and Enterococcus on urine cultures
- As needed phenylephrine infusion, doing well off pressors.
#2. Acute hypoxic respiratory failure
- Patient was intubated 03/21, extubated 03/25, continues to require supplemental oxygen, overall improving, decreasing oxygen demand
- Bilateral interstitial opacities, basal predominant with interseptal thickening, suggestive of pulmonary edema versus interstitial lung disease
- Patient has baseline mild reticular changes on imaging suggestive of mild fibrosis, crecent CT was with significant worsening
- Patient has severe aortic stenosis, poor tolerance of HD with significant uremia, fluid overload also was in differential diagnosis
- ILD exacerbation cannot be ruled out, patient empirically started on high-dose IV steroids on 03/28, gradually weaning since, last dose of prednisone 04/03.
- 03/30, RHC with PCWP only 8, also f/u CXR with improved interstitial opacities more suggestive of improving pulmonary edema rather than ILD
- Mild pneumomediastinum noted on imaging, suspect related to intubation and mechanical ventilation, resolved on subsequent x-rays
#3. ELIZABETH with hydronephrosis of transplanted kidney
- Severe pyelonephritis as well as obstructive uropathy with hydronephrosis noted on imaging
- S/p Disla catheter placement, essentially anuric
- No renal recovery noted, patient had been initiated on hemodialysis
- Due to poor tolerance of HD, 03/29, transitioned to CRRT. Line clotted, off CRRT since.
- History of renal transplant in 2019. MMF has been resumed per neprhology service.
- 03/30, With low PCWP and low filling pressure, and improving CXR, patient receiving 1 ltr IVF
- 03/31, urine output marginally improved, creatinine continues to be high, BUN continues to climb
- 04/01, IR guided dialysis catheter exchanged in right IJ, scheduled for HD trial
- 04/01, midway during dialysis, patient became tachycardic, tachypneic with respiratory distress, prematurely had to and hemodialysis followed by clinical improvement.
#4. Epistaxis involving left nare s/p rapid Rhino via ENT - rapid rhino removed as of 03/26
- No further epistaxis noted
- Resumed Eliquis, tolerating well
#5. History of pulmonary nodules and baseline mild ILD
- Review of prior imaging shows mild reticular changes mostly in the posterior and basal area
- Concerning for chronic ILD versus early fibrotic changes with prior history of COVID-19
- Patient follows up with Dr. Alex at [facility] pulmonary clinic.
- Connective tissue disease panel negative with normal ROXANNE and rheumatoid factor levels.
- Current worsening concerning for volume overload versus ILD exacerbation.
- 03/30, CXR improving. Lowered steroids to 30 mg daily with tapering over coming days.
- 04/01, continues to do well, will lower prednisone further starting 04/02
- 04/02, lowered prednisone further down to 20 mg daily for 2 more days
#6. Atrial fibrillation with rapid ventricular response
- Continue metoprolol as tolerated (Hold this am for HD)
- Resumed Eliquis. No active bleeding noted.
#7. Severe with cardiogenic shock
- RHC 03/2025, PCWP 8, CI 1.9, SVR 1526.
- 03/30. IVF challenge x 1 ltr
- Tentative TAVR vs BAV in coming days if renal function does not recover, and patient not able to tolerate renal replacement therapy
Conditions present prior to admission:
End-stage renal disease status post renal transplantation-[facility] 2018-follows at [facility]-Dr. Hines and locally Dr. Muhammad
Permanent atrial fibrillation/Eliquis.
Hypertension.
BPH.
Postherpetic neuralgia.
Chronic back pain.
Pulmonary nodule right base with negative PET followed by Dr. Olivarez-next CT 02/2025.
Fatty liver.
Inguinal hernia
Osteoporosis.
Hernia repair.
Cataract 2020. Transplant kidney December 2018.
DVT prophylaxis: Eliquis resumed.
Stress ulcer prophylaxis: N/A
FEES 03/29. PO as tolerated
Prognosis unfortunately poor with multiorgan dysfunction-goals of care discussion reviewed on 03/23 with the patient's daughters and with Dr. Genao; they understand that he is critically ill but they would like to continue full medical
management for now and are not interested in withdrawal care. As of 03/24, given that his mental status has improved, I recommend to continue with full aggressive management considering that he is improving.
Unfortunately as of 03/25, he continues to be hypoxic and severely deconditioned after extubation. Goals of care discussion held with the and daughter on 03/25. They would like to continue with full medical care, as the feels that this
is what Johann would have wanted. I also discussed this goals of care with the patient himself and he says to 'do what ever is needed' at this time.
The patient last saw Dr. Olivarez 03/08/2025 for ILD, restrictive lung disease and pulmonary nodule-has appointment for PFT 04/28/2025 at 3 PM [address] appointment [address] Olivarez 04/29/2025 at 11:15 AM
Critical care statement: A total of 48 minutes of critical care time was provided for this patient today. This includes management of unstable vital signs, evaluation of the patient at bedside, reviewing the patient's pertinent medical records
including radiographs, microbiology, laboratory evaluations, and discussion with primary team, consultants, pharmacy, nutrition, physical therapy, case management, charge nurse, critical care nursing, and respiratory therapy.
Office note Dr. Olivarez 03/08/2025 in regards to pulmonary nodule:
CT imaging August 2024 revealed approximately 1.3 cm nodular opacity in the right base, not present on previous exam.
Underwent a repeat CT in November 2024 Showed resolution of previously seen right basilar nodule but a new 1.4 cm nodule in the right lower lobe.
Underwent a PET scan 12/17/2024 which showed evolution of right lower lobe nodule, now presenting as large ground glass nodule measuring up to 3.9 cm. Highly suggestive of benign infectious/inflammatory process.
Repeat CT 02/2025: now demonstrate bilateral peribronchiolar ground glass infiltrate bilaterally.Unclear etiology, differential Dx includes inflammatory/infectious process vs pulmonary edema.there is evidence of small bilateral pleural effusions,
with history of aortic stenosis pulmonary edema except possibility.With ongoind immunosupresion will need to keep in my oportunistic infection.
Will obtain ILD serology, proBNP and inflmmatory markers.
Bronchoscopy with BAL may be required-if there is no evidence of volume overload.-Of note He was treated with an antibiotic and steroids middle of October 2024. He denies any active Symptoms suggesting infection.If He does produce any phlegm, we will
submit sputum culture
Diagnostic data:
CT Chest 03/28/2025- Mild pneumomediastinum, with superior extension into the fat at the base of the neck, as well as at the posterior and lateral aspect of the right mid to upper thorax.
Diffuse bilateral interstitial and groundglass opacity. This could be related to fluid associated with interstitial and pulmonary edema related to volume overload or congestive heart failure. Alternatively, findings may be infectious in nature
related to atypical or viral pneumonitis. No focal dense consolidation.
Chest x-ray 03/18/2025-severe chronic inflammatory interstitial pneumonitis
CT abdomen and pelvis 03/18/2025-severe acute edema and inflammation around right lower quadrant renal transplantation, severe hydronephrosis, severe bilateral atrophic nulato kidneys, small bilateral pleural effusions, increased coarse interstitial
markings throughout both lower lobes, right middle lobe with severe chronic inflammatory interstitial pneumonitis
ILD serology 03/10/2025-negative rheumatoid factor, ROXANNE, SSA antibodies, scleroderma antibody, proteinase [address] chest 02/23/2025 Reviewed Uriel Leong 03/08/2025 06:25:26 AM EDT >1. Resolution of previously seen right lower lobe 1.4 cm nodule.2. Mild to moderate changes of pulmonary fibrosis as seen previously.3. Superimposed upon the changes of
fibrosis, there is new large amount of bilateralperibronchovascular interstitial and groundglass opacity with small amount of bilateral upper lungairspace consolidation as detailed above. There are very small bilateral pleural effusions. Whileedema
is a differential consideration, findings are more suggestive of a superimposed infectious orinflammatory process. There is associated mild mediastinal adenopathy.-
PET CT 12/17/2024 reviewed: Uriel Leong 03/08/2025 06:25:44 AM EDT >The previously seen solid right lower lobe nodule has evolved/changed in morphology, nowpresenting as a large groundglass nodule measuring up to 3.9 cm which demonstrates
max SUV 4.7(delayed 5.4). Otherwise, no suspicious FDG avid lesions.ABDOMEN and PELVIS:No suspicious FDG-avid lesions.SKELETON:No suspicious FDG-avid lesions.This suggests inflammatory process.-
CT chest 2023: Reviewed Uriel Leong 07/05/2023 08:49:26 AM >1. No significant acute abnormality identified in the chest within the limits of unenhanced CT, asdescribed above. Probable residual fibrotic changes in the lungs, less
likely active pneumonitis.-
CT chest 02/27/2023: Reviewed Uriel Leong 03/06/2023 08:42:39 AM >There has been significant further improvement in the patient's bilateral parenchymal airspacedisease when compared with the previous examinations.Currently, there is mild
left and moderate diffuse coarsening of the interstitial markingsthroughout both lungs which at this point may be residual scarring/fibrosis rather than acuteinflammatory disease.There is mild cardiomegalyThere is atherosclerosis-
CT chest 11/23/2022: showed evidence of postinflammatory fibrosis. Groundglass opacities have resolved..
Pulmonary function testing ( 07/13/2024� ):FEV1: 3.4 L-107%FVC:3.96 L-89%FEV1/FVC ratio:86%T.52 L-73%RV:44%ERV:RV/TLC ratio:23%DLCO: 13.69-50%DLCO/VA: 70%
Echo 05/19/24: Normal biventricular size and function. EF 65%. Severely dilated LA. Paradoxical low flow low gradient aortic stenosis. Mild AR.
Subjective Dataa
Subjective Data
Date of Service:
Date of Service: April 03, 2025
Chief Complaint: Creative Services Specialist Follow Up and Pulmonary Follow Up
Subjective:
Patient comfortably sitting in bed in no acute distress
Review of Systems
Genitourinary: Other (All 14 systems reviewed and negative except as stated above in the history of present illness.)
Objective Data
Data Reviewed
Vital Signs / I&O / Oxygen:
Vital Signs
Temp Pulse Resp BP Pulse Ox
98 F 100 24 132/63 95
04/03/25 02:00 04/03/25 06:00 04/03/25 06:00 04/03/25 06:00 04/03/25 06:00
Intake and Output
04/02/25 04/03/25 04/04/25
06:59 06:59 06:59
Intake Total 1190 / 1210 2845 / 2845
Output Total 840 / 890 1085 / 1085
Balance 350 / 320 1760 / 1760
SaO2 [ASV] 98
SaO2 [A/C] 96
SaO2 [NIV (Non Invasive 97
Ventilation)]
SaO2 95
Nasal Cannula flow liters per 2
minute
Physical Exam
General: Respiratory Distress (negative), Comfortable, Chills (negative) and Sweats (negative)
HEENT: Normocephalic and Anicteric
Cardiovascular: Irregular Rhythm (Irregularly irregular) and Peripheral Edema (negative)
Respiratory: Wheeze (n), Crackles (Significantly improved), Rhonchi (n), Non-Labored Respirations, Stridor (n) and Other (Bubbling in right hemithorax)
GI: Soft, Non Distended, Non Tender and Normal Bowel Sounds
Neurology: Tremors (negative) and Other (Somnolent although easily arousable to voice and tactile stimulation, answering questions appropriately)
Skin: Warm, Dry, Cyanosis (n), Jaundice (n) and Rash (n)
Labs/Micro/Reports
Lab Data
04/03/25 04:08
04/03/25 04:08
Laboratory Results
04/02/25 04/03/25
17:07 04:08
PT 16.4 H
INR 1.29
APTT 29.1 38.3 H
[2025-04-03] MEDS: NOVOLOG FLEXPEN-HIGH RESISTANCE 2 UNITS SC (07:54)
[2025-04-03] MEDS: LOW STRENGTH ASPIRIN 81 MG PO (07:55)
[2025-04-03] MEDS: DELTASONE 20 MG PO (07:55)
[2025-04-03] MEDS: CELLCEPT 1000 MG PO ×2 (07:55→20:29)
[2025-04-03] MEDS: LANTUS 0.12 UNITS SC (07:55)
[2025-04-03] MEDS: LOPRESSOR 25 MG PO ×2 (07:55→20:29)
--- NOTE | 2025-04-03 07:57 | W.PN.NEPH.PH ---
Today's Communication / Plan
-
Maintain lactated Ringer's
No dialysis requirement today
Assessment/Plan
-
This is a 79-year-old gentleman who follows in our office with Dr. Muhammad after donor renal transplant 2019 from [facility]. His transplant course has been complicated by development of nephrotic range proteinuria as well as recent
cellular rejection December of this year. The episodes treated with Solu-Medrol. His creatinine has risen quickly over time in the last several months. He has gone from a creatinine around 2 now up to 4.4. He was noted to have hydronephrosis of
the transplanted kidney recently on ultrasound as well as CT scan. Esteves catheter was placed by urology a few days ago. His appetite has been poor as of late. Recently he also developed fever and malaise and this has brought him to the emergency
room. He was noted to be febrile in the ER. Blood pressure was stable though lower than his home readings of 132. He was 100 systolic in the ER. Creatinine was 4.7 with elevated lactate level and elevated white count. CT of the abdomen and
pelvis were performed with suspicion for pyelonephritis of the transplant. We are asked to assist in management of his renal issues.
Assessment
Sepsis syndrome, possible pyelonephritis
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
donor renal transplant with FSGS, recent T-cell rejection
Obstructive uropathy, Esteves catheter in place
ELIZABETH..
Anemia
Hyponatremia
lactic acidosis
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
Plan
Patient failed on dialysis hemodynamically due to aortic stenosis
Conventional dialysis could not be offered for the patient
Status post left and right heart cath yesterday: reviewed (nonobstructive coronary disease)
If dialysis required over weekend we will have to initiate CRRT to bridge to TAVR
No acute dialysis required at this time, creatinine stable at 2.9 and grossly nonoliguric
worsening azotemia on steroids, no clinical uremia noted , cont MMF
non oliguric, PCWP was at 9 on 04/02wt slightly up
Okay to maintain current IV fluid
wean steroids as able
mild hematuria with esteves-monitor
severe likely likely limiting factor for hemodynamic instability during HD
abx per ID
dose meds renally
cont TF through DHT
Patient is at high clinical risk with ongoing acute renal failure with persistent azotemia and hemodynamic instability with dialysis
Reviewed case with ICU and nursing
-
-
Date of Service: April 03, 2025
CC / HPI / ROS
-
Chief Complaint:
Sepsis
History of Present Illness:
Acute kidney injury multifactorial obstructive uropathy, sepsis
BPs table remains off pressors
extubated 03/25, on RA
hb 8.3 stable, 1 PRBC on 03/22
Creatinine at 2.9 but BUN up at 130
Review of Systems:
non oliguric with esteves
no fever,decondition and NIETO
no pain,
Labs
-
Labs:
WBC 13.1 10^3/uL (4.8-10.8) H 04/03/25 04:08
RBC 2.48 10^6/uL (4.70-6.10) L 04/03/25 04:08
Hgb 7.6 g/dL (13.0-18.0) L 04/03/25 04:08
Hct 23.9 % (39.0-52.0) L 04/03/25 04:08
Plt Count 123 10^3/uL (130-400) L 04/03/25 04:08
Sodium 141 mmol/L (135-145) 04/03/25 04:08
Potassium 4.1 mmol/L (3.5-5.1) 04/03/25 04:08
Chloride 107 mmol/L (98-107) 04/03/25 04:08
Carbon Dioxide 25 mmol/L (22-30) 04/03/25 04:08
BUN 130 mg/dl (9-20) H* 04/03/25 04:08
Creatinine 2.9 mg/dL (0.7-1.3) H 04/03/25 04:08
eGFR 21.34 04/03/25 04:08
Glucose 145 mg/dl (70-99) H 04/03/25 04:08
Calcium 7.5 mg/dl (8.4-10.2) L 04/03/25 04:08
Phosphorus Cancelled 03/29/25 17:00
Ozr-G-Gmtjhxavzhh Pept 63415 pg/ml 03/28/25 03:28
Albumin 2.8 g/dl (3.5-5.0) L 03/28/25 03:27
Physical Exam
-
Vital Signs:
Vital Signs
Temp Pulse Resp BP Pulse Ox
98 F 100 24 132/63 95
04/03/25 02:00 04/03/25 06:00 04/03/25 06:00 04/03/25 06:00 04/03/25 06:00
Cardiovascular:: Regular rate and rhythm
Respiratory:: Bilateral: Coarse (much improved from before)
Lung Excursion:: Abnormal
Abdomen:: Nontender and Soft
Extremity Edema:: None: Bilateral:
Esteves Catheter: Yes
Other Findings::
Feeding tube
right IJ catheter
--- NOTE | 2025-04-03 07:59 | W.PN.HOSP.TC ---
Today's Communication/Plan
-
See plan
Assessment / Plan
Assessment / Plan
Physical Exam
General: No Apparent Distress
HEENT: NormoCephalic, Moist mucous membranes,
Respiratory: Rhonchi's, nasal cannula, R chest wall HD catheter noted
Cardiac: S1/S2, Regular Rhythm and Murmur (3 out of 6 systolic murmur)
GI: Soft, Non Tender, Non Distended and Normal Bowel Sounds
-esteves
Skin: Warm. Dry.
Neuro: AAO x 3
Assessment/Plan
79-year-old with history of end-stage renal disease status post kidney transplant 2018 on antirejection medications, hypertension, hyperlipidemia, atrial fibrillation on , urinary retention status post catheter placement on Saturday presenting
to the emergency department with fever and chills as well as weakness. CT scan consistent with transplant pyelonephritis. He still has persistent hydro which likely reflects chronic hydro compared to his prior ultrasound. Known anemia. Picture
consistent with pyelonephritis with bandemia and lactic acidemia consistent with sepsis.
Acute hypoxic respiratory failure likely Multifactorial secondary to pulmonary edema versus pneumonia versus interstitial lung disease
- intubated 03/21; extubated 03/25
History of pulmonary nodules
-Continues to require supplemental oxygen, overall improving, decreasing oxygen demand (previously was intubated from 03/21/25 to 03/25/25)
-Wean oxygen as tolerated
-Patient has baseline mild reticular changes on imaging suggestive of mild fibrosis, recent CT was with significant worsening
-ILD exacerbation could not be ruled out, patient was empirically started on high-dose IV steroids on 03/28/25, gradually weaning since, last dose of prednisone is on 04/03/25.
S/p right heart cath, wedge 8, signifies that he is dry, but suspected that he more likely had pulmonary edema (given improved interstitial opacities)
Mild pneumomediastinum noted on imaging, suspect related to intubation and mechanical ventilation, resolved on repeat x-rays
Septic shock associated with acute kidney injury, lactic acidosis secondary to Klebsiella bacteremia likely secondary to urinary tract infection
Transplant kidney pyelonephritis with Klebsiella and E. faecalis
Immunosuppressed
-Pressors remain off but may need during HD (see below)
-Completed 14 days course of Unasyn on 04/02/25
Epistaxis
-Resolved
-So far stable/remains resolved while on anticoagulation
-Evaluated by ENT, status post left NC packing. now removed. Appears deviated septum per ENT. Monitor
Toxic metabolic encephalopathy likely secondary to shock versus ICU delirium versus hypoxemia versus uremia
appears to be improving when off sedation
Hydronephrosis of transplanted kidney - Resolving, cannot rule out post obstructive polyuria. Catheter placed by Dr. Jim as outpatient.
Obstructive uropathy of transplant kidney, Esteves placed 03/15/25
Severe Pyelonephritis
- maintain Esteves catheter for now -- anuric
- patient denies any alpha blockade but considering TURP
-Still with hematuria however hemoglobin remained stable
- monitor i/os
- f/u u/s after tx of elizabeth
- continue cardura with hold parameters when able
ELIZABETH only- Persistent ELIZABETH despite Esteves placement. Recent Treatment for rejection in December.
History of renal transplant in 2019
- Renal function can worsen with contrast given for cath on 04/02/25
Metabolic acidosis
Required hemodialysis has received multiple session, but due to poor tolerance of HD, 03/29/25, transitioned to CRRT. Line clotted, off CRRT since.
On temporary hemodialysis catheter
Since HD catheter had been not functioning, it was exchanged on 04/01/25 (today) -- HD attempt on 04/01/25 resulted in tachycardia and tachypnea during HD -- if patient needs urgent dialysis CRRT will be provided to bridge till TAVR
Avoid nephrotoxins hypotension
Severe likely limiting factor for hemodynamic instability during HD
donor renal transplant 2019 from [facility]
Cellcept resumed 03/30/25 nephrology. On IV steroids
Severe aortic stenosis with cardiogenic shock
- RHC indicates aortic stenosis as source of low cardiac output/cardiogenic shock.
Cardiology recommended TAVR vs BAVR.
- Per ID, Infection is resolved, completing abx course in 1 day -> He is cleared for TAVR from ID perspective -- if cannot tolerate HD, will need inpatient TAVR versus BAVR
- On 04/02/25, cardiac cath performed: it showed nonobstructive coronary artery disease in a right dominant system as described, mildly elevated (inappropriately low in setting of severe ) LV filling pressure.
Significant pullback gradient across the aortic valve in setting of known severe aortic valve stenosis. Unable to quantitatively assess degree of aortic stenosis given variable RR interval in Aflutter.
- Given the above, patient will need IV fluids as per cardiology
- In preparation for TAVR, stopped Eliquis and started heparin drip on 04/02/25
- Started ASA 81 mg daily (received ASA 325 on 04/02/25)
- Proceed with workup for TAVR; plan for TAVR CT scan on 04/04/25 or 04/05/25
Acute blood loss anemia with baseline chronic macrocytic anemia - Macrocytic anemia, recent normal sats but given IV iron infusion without improvement. Denies melena but did have epistaxis as above and also hematuria. Colonoscopy November ->single
non-bleeding colonic angioectasia and internal hemorrhoids. On Eliquis.
- Ferritin level elevated.Received blood transfusion this hospitalization
- type and screen and trend H&H for now
- Transfuse hgb <7
Eliquis resumed
Thrombocytopenia likely secondary to septic shock
-Continue to trend platelets.
Atrial fibrillation with rapid ventricular response
AFIB Permanent
- Continue Heparin Drip in lieu of Eliquis
- Continue Metoprolol.
Hyperglycemia from Prednisone
-Continue Insulin
Sacrum Stage 2 Pressure Injury
-Wound care
DVT PPX - SCD's.\\Heparin Drip.
Diet: Tube feeds
Code status - Full Code
High clinical risk with ongoing acute renal failure and hemodynamic instability with dialysis is a high risk encounter.
Anticipated Discharge: > 48 hours
Subjective/Interval History
-
Date of Service: April 03, 2025
Patient was seen and examined. He denied any shortness of breath, chest pain or any other new symptoms or complaints.
Objective Data
-
Labs:
Laboratory Results
04/03/25 04/03/25
04:08 13:00
WBC 13.1 H
Hgb 7.6 L
Hct 23.9 L
Plt Count 123 L
PT 16.4 H
INR 1.29
APTT 38.3 H Pending
Sodium 141
Potassium 4.1
Chloride 107
Carbon Dioxide 25
BUN 130 H*
Creatinine 2.9 H
Glucose 145 H
Calcium 7.5 L
Vital Signs:
Vital Signs
Temp Pulse Resp BP Pulse Ox
98 F 100 24 132/63 95
04/03/25 02:00 04/03/25 06:00 04/03/25 06:00 04/03/25 06:00 04/03/25 06:00
I&O
04/02/25 04/03/25 04/04/25
06:59 06:59 06:59
Intake Total 1190 / 1210 2845 / 2845
Output Total 840 / 890 1085 / 1085
Balance 350 / 320 1760 / 1760
[2025-04-03 08:04] LABS: Glucose - Point of Care 187 mg/dl (70-99)
--- NOTE | 2025-04-03 08:20 | PTCARENOTE ---
Pt received start of shift, HR aflutter/fib with frequent polymorphic PVCs. AAOx3. Substernal retractions noted at rest, [id number]. Lungs diminished to auscultation. RA SpO2 91-95%. NGT R nare @ 65cm w/ nepro TF infusing as ordered. + bowel sounds.
Disla draining tea colored urine. Oral care performed, am meds given. Pt max asst OOB to chair. Dilaudid given for sacral pain.
[2025-04-03] MEDS: SENOKOT-S PO (08:35)
[2025-04-03] MEDS: MIRALAX PO (08:35)
--- NOTE | 2025-04-03 11:59 | W.PN.CD ---
Today's Communication / Plan
-
RENEW heparin gtt
CTScan TAVR tomorrow
Impression / Plan
-
79M with prior renal transplant in 2019 presenting with septic shock and ELIZABETH now on CRRT. New diagnosis this admission of severe aortic stenosis.
Aortic stenosis, severe:
-concern that severe is contributing to shock and failure to tolerate HD
-Per Dr Larios-'Multidisiplinary discussion with renal, pul crit care, cardiology, patient, and family. Consensus that patient's best change at recovery is treatment of his aortic valve stenosis with TAVR to improve hemodynamic tolerance of iHD.
This will require iodinated contrast for CT and cath, which may worsen his minimal residual graft function. Renal does not feel that he has a meaningful chance for significant renal recovery and agrees that prioritizing tolerance of iHD with TAVR is
priority, even if graft function further worsens.'
- s/p [facility] NONOBSTRUCTIVE CORONARY ARTERY DISEASE ON 04/02/2025.
-TAVR CT chest/abdomen/pelvis tomorrow
-Will also need dental clearance prior to valve replacement.
ELIZABETH, hx kidney transplant with evidence for rejection, hydronephrosis with Disla:
-had hemodynamic instability on HD, attempted HD again today after volume resuscitation and again failed
-in discussion with renal, though he still makes urine there is not a great deal of expectation for retirement renal recovery
Acute respiratory failure:
-now extubated, minimal O2
-CT scan 03/28/25: Mild pneumomediastinum, with superior extension into the fat at the base of the neck, as well as at the posterior and lateral aspect of the right mid to upper thorax. Diffuse bilateral interstitial and groundglass opacity. This
could be related to fluid associated with interstitial and pulmonary edema related to volume overload or congestive heart failure. Alternatively, findings may be infectious in nature related to atypical or viral pneumonitis. No focal dense
consolidation. On IV steroids. On IV abx.
-No volume overload on cath but CXR suggested mild improvement, care per Dr Thorne.
Septic shock, in setting of pyelonephrosis:
-received IVF, no longer on pressors
-ID following, on antibiotics
Permanent AFIB:
-On heparin drip rather than Eliquis (per nephro since patient had clotting with initiation of CRRT)
-on metoprolol, rate currently controlled- follow telemetry
-follow telemetry
Anemia:
-improved
-monitor closely now back on AC
Data;
-Echo 03/23/25: Normal biventricular size and systolic function. Severe LFLG aortic stenosis: reported mean 39 mmHg (on a long RR interval, looks more like 30 on standard beats, but DVI 0.2 and and estimated SHU 0.46 cms), SVI 17 mL/m2. Unlikely
that anemia is causing significant overestimation of severity. Anemia may produce high gradient with borderline severe valve area that corrects with reduction in flow, but he is already in a low flow state. Severe left atrial enlargement.
Compared to echocardiogram dated 05/19/2024 the valve looks perhaps visually progressed and quantitative severity is increased.
Physical Exam
Vital Signs/Labs
Vital Signs
Temp Pulse Resp BP Pulse Ox
97.4 F 96 23 128/71 95
04/03/25 08:00 04/03/25 10:00 04/03/25 10:00 04/03/25 10:00 04/03/25 10:00
04/02/25 04/03/25 04/04/25
06:59 06:59 06:59
Actual Weight 151 lb 0.266 oz 151 lb 10.848 oz
04/03/25 04:08
04/03/25 04:08
PT 16.4 Sec (11.4-14.6) H 04/03/25 04:08
INR 1.29 04/03/25 04:08
APTT 38.3 Sec (23.4-35.0) H 04/03/25 04:08
Magnesium 2.6 mg/dl (1.6-2.3) H 03/30/25 02:36
Triglycerides 220 mg/dl (10-149) H 03/27/25 03:27
03/19/25 03/26/25 03/28/25
23:51 03:21 03:28
Rja-B-Frrgxisrgld Pept > [id number]
Physical Exam
Constitutional: No acute distress
Cardiovascular: Rhythm & rate is regular, Pedal edema is absent, Rhythm/rate is irregular and Systolic murmur present
Respiratory: Respiratory effort normal, Lungs clear to auscul., Wheeze Absent, Crackles Absent and Rhonchi Absent
Neuro/Psych: AO x 3
Data Reviewed
-
Date of Service: April 03, 2025
Medical Decision Making: Review of Case with other Provider (Dr Thorne, ct tavr tomorrow)
[2025-04-03 12:07] LABS: Glucose - Point of Care 201 mg/dl (70-99)
[2025-04-03] MEDS: NOVOLOG FLEXPEN-HIGH RESISTANCE 4 UNITS SC (12:58)
--- NOTE | 2025-04-03 13:02 | PTCARENOTE ---
Pt remains up in chair. Assessment unchanged
[2025-04-03 13:11] LABS: APTT 55.7 Sec (23.4-35.0)
--- NOTE | 2025-04-03 14:21 | PTCARENOTE ---
Pt OOB to chair with 3 person asst at 0800. Pt remained OOB for 6h. Returned to bed with slideboard pull-over from reclined chair.
--- NOTE | 2025-04-03 16:19 | PTCARENOTE ---
Family at bedside. Plan of care updated. Assessment unchanged. Call tao within reach
[2025-04-03] MEDS: NOVOLOG FLEXPEN-HIGH RESISTANCE 1 UNITS SC (16:53)
[2025-04-03 17:02] LABS: Glucose - Point of Care 141 mg/dl (70-99)
[2025-04-03] MEDS: VALIUM 2 MG PO (20:29)
[2025-04-03] MEDS: SENOKOT-S 1 TABLET PO (20:29)
[2025-04-03] MEDS: HEPARIN 25000 UNITS/250 ML IV (20:30)
[2025-04-03 20:32] LABS: Hematocrit 26.3 % (39.0-52.0); Hemoglobin 7.9 g/dL (13.0-18.0)
[2025-04-03] MEDS: MELATONIN 5 MG PO (20:42)
[2025-04-03 20:44] LABS: APTT 65.5 Sec (23.4-35.0)
--- NOTE | 2025-04-03 20:47 | PTCARENOTE ---
HD dressing changed, Bleeding from site, Packed with combat gauze, ICU CARLOS notified --> H/H sent.
[2025-04-03 21:42] LABS: Glucose - Point of Care 174 mg/dl (70-99)
[2025-04-04] VITALS (24 sets, daily range): BP systolic 110–149; BP diastolic 60–82; BMI 20.4
--- NOTE | 2025-04-04 00:17 | PTCARENOTE ---
No changes in pt. Assessment.
[2025-04-04] MEDS: DILAUDID 0.5 MG IV ×3 (01:39→22:41)
[2025-04-04 02:56] LABS: Hematocrit 25.1 % (39.0-52.0); Hemoglobin 7.7 g/dL (13.0-18.0); Mean Corp Hgb Conc. 30.7 g/dL (33.0-37.0); Mean Corpuscular Volume 100.4 fL (80.0-94.0); Platelet Count 117 10^3/uL (130-400); Red Cell Dist. Width 17.3 % (11.5-14.5)
[2025-04-04 03:03] LABS: APTT 76.7 Sec (23.4-35.0)
--- NOTE | 2025-04-04 03:47 | PTCARENOTE ---
No change in assessment.
[2025-04-04 06:24] LABS: Calcium 8.1 mg/dl (8.4-10.2); Carbon Dioxide 24 mmol/L (22-30); Chloride 106 mmol/L (98-107); Estimated Creatinine Clearance 24 ml/min; Glucose 105 mg/dl (70-99); Potassium 4.3 mmol/L (3.5-5.1); Sodium 138 mmol/L (135-145); eGFR 26.78
[2025-04-04 06:36] LABS: Blood Urea Nitrogen 126 mg/dl (9-20)
[2025-04-04] MEDS: MIRALAX PO (07:16)
[2025-04-04] MEDS: LR 1000 IV ×2 (07:16→20:32)
[2025-04-04] MEDS: SENOKOT-S PO ×2 (07:16→20:31)
[2025-04-04] MEDS: CELLCEPT 1000 MG PO ×2 (07:18→20:31)
[2025-04-04] MEDS: LOPRESSOR 25 MG PO ×2 (07:18→20:31)
[2025-04-04] MEDS: DELTASONE 20 MG PO (07:19)
[2025-04-04] MEDS: LOW STRENGTH ASPIRIN 81 MG PO (07:19)
[2025-04-04] MEDS: NOVOLOG FLEXPEN-HIGH RESISTANCE SC (07:42)
[2025-04-04] MEDS: LANTUS 0.12 UNITS SC (07:43)
[2025-04-04 07:53] LABS: Glucose - Point of Care 108 mg/dl (70-99)
--- NOTE | 2025-04-04 08:00 | W.PN.NEPH.PH ---
Today's Communication / Plan
-
maintain IVfs
Assessment/Plan
-
This is a 79-year-old gentleman who follows in our office with Dr. Muhammad after donor renal transplant 2019 from [facility]. His transplant course has been complicated by development of nephrotic range proteinuria as well as recent
cellular rejection December of this year. The episodes treated with Solu-Medrol. His creatinine has risen quickly over time in the last several months. He has gone from a creatinine around 2 now up to 4.4. He was noted to have hydronephrosis of
the transplanted kidney recently on ultrasound as well as CT scan. Esteves catheter was placed by urology a few days ago. His appetite has been poor as of late. Recently he also developed fever and malaise and this has brought him to the emergency
room. He was noted to be febrile in the ER. Blood pressure was stable though lower than his home readings of 132. He was 100 systolic in the ER. Creatinine was 4.7 with elevated lactate level and elevated white count. CT of the abdomen and
pelvis were performed with suspicion for pyelonephritis of the transplant. We are asked to assist in management of his renal issues.
Assessment
Sepsis syndrome, possible pyelonephritis
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
donor renal transplant with FSGS, recent T-cell rejection
Obstructive uropathy, Esteves catheter in place
ELIZABETH..
Anemia
Hyponatremia
lactic acidosis
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
Plan
Patient failed on dialysis hemodynamically due to aortic stenosis
Conventional dialysis could not be offered for the patient
Status post left and right heart cath 04/02 reviewed (nonobstructive coronary disease)
If dialysis required we will have to initiate CRRT to bridge to TAVR
No acute dialysis required at this time, creatinine improving to 2.4 and BUN dropping to 126 and grossly nonoliguric with IV fluid administration
worsening azotemia on steroids, no clinical uremia noted , continue MMF
non oliguric, PCWP was at 9 on 04/02wt slightly up
Okay to maintain current IV fluids
heparin off due to nasal bleed and HD catheter bleed
wean steroids as able
mild hematuria with esteves-monitor
severe likely likely limiting factor for hemodynamic instability during HD
abx per ID
dose meds renally
cont TF through DHT
Patient is at high clinical risk with ongoing acute renal failure with persistent azotemia and hemodynamic instability with dialysis
Reviewed case with ICU and nursing
-
-
Date of Service: April 04, 2025
CC / HPI / ROS
-
Chief Complaint:
Sepsis
History of Present Illness:
Acute kidney injury multifactorial obstructive uropathy, sepsis
BPs table remains off pressors
extubated 03/25, on RA
hb 8.3 stable, 1 PRBC on 03/22
Creatinine down 2.4 but BUN down to 126
extensive bleeding from HD catheter and nose (heparin off)
Review of Systems:
non oliguric with esteves ~ 2liters
no fever,decondition and NIETO
no pain,
Labs
-
Labs:
WBC 14.6 10^3/uL (4.8-10.8) H 04/04/25 02:28
RBC 2.50 10^6/uL (4.70-6.10) L 04/04/25 02:28
Hgb 7.7 g/dL (13.0-18.0) L 04/04/25 02:28
Hct 25.1 % (39.0-52.0) L 04/04/25 02:28
Plt Count 117 10^3/uL (130-400) L 04/04/25 02:28
Sodium 138 mmol/L (135-145) 04/04/25 05:13
Potassium 4.3 mmol/L (3.5-5.1) 04/04/25 05:13
Chloride 106 mmol/L (98-107) 04/04/25 05:13
Carbon Dioxide 24 mmol/L (22-30) 04/04/25 05:13
BUN 126 mg/dl (9-20) H* 04/04/25 05:13
Creatinine 2.4 mg/dL (0.7-1.3) H 04/04/25 05:13
eGFR 26.78 04/04/25 05:13
Glucose 105 mg/dl (70-99) H 04/04/25 05:13
Calcium 8.1 mg/dl (8.4-10.2) L 04/04/25 05:13
Phosphorus Cancelled 03/29/25 17:00
Gvt-U-Noetpmtuwwd Pept 48266 pg/ml 03/28/25 03:28
Albumin 2.8 g/dl (3.5-5.0) L 03/28/25 03:27
Physical Exam
-
Vital Signs:
Vital Signs
Temp Pulse Resp BP Pulse Ox
98 F 84 15 121/73 99
04/04/25 02:00 04/04/25 05:00 04/04/25 05:00 04/04/25 05:00 04/04/25 05:00
Cardiovascular:: Regular rate and rhythm
Respiratory:: Bilateral: Coarse (much improved from before)
Lung Excursion:: Abnormal
Abdomen:: Nontender and Soft
Extremity Edema:: None: Bilateral:
Esteves Catheter: Yes
Other Findings::
Feeding tube
right IJ catheter (bleeding around bandage)
--- NOTE | 2025-04-04 08:30 | PTCARENOTE ---
Assumed care of pt. Subconjunctival hemorrhage noted in L sclera, mild L nare epistaxis, and oozing from RIJ HD cath. Dressing changed and surgicel placed at site. IV bag placed over for pressure. Cms Expert ordered heparin gtt on hold.
Assessment as noted. Decision made by Nephrology and Radiology to break up scan into 2 days to limit contrast exposure of kidneys.
--- NOTE | 2025-04-04 10:34 | PTCARENOTE ---
Partial completion of CT scan for TAVR workup. Pt tolerated well. RIJ dressing changed and oozing continues but appears to be slowing. IV bag over site and surgicel in place. Dr Thorne updated.
--- NOTE | 2025-04-04 11:05 | PTCARENOTE ---
Radiology reporting to RN LLL posterior pulmonary embolus. Dr. Thorne notified.
[2025-04-04] MEDS: NOVOLOG FLEXPEN-HIGH RESISTANCE 2 UNITS SC (12:09)
[2025-04-04 12:22] LABS: Glucose - Point of Care 153 mg/dl (70-99)
--- NOTE | 2025-04-04 12:31 | PTCARENOTE ---
Dr. Thorne to bedside to address bleeding from RIJ cath. Inferior suture removed as source of bleeding. Suture replaced under sterile technique without issue. Bleeding ceased.
--- NOTE | 2025-04-04 12:55 | W.PN.INTV ---
Today's Communication / Plan
Recommendations
- Resume chronic dose of prednisone 2.5 mg p.o. twice daily on 04/05
- Discontinue glargine as patient weaned off high-dose steroids
- Resume heparin infusion, monitor for signs of bleeding
- Multidisciplinary discussion regarding new diagnosis of pulmonary embolism and plan for TAVR
Assessment
-
79-year-old male with a 1 pack year smoking history, hypertension, nephrolithiasis, pulmonary nodule, atrial fibrillation, and renal transplantation on mycophenolate and prednisone with recent ultrasound showing transplant hydronephrosis presented
with 2 days of fever found to be septic with ELIZABETH-public relations consulted for sepsis/shock/ELIZABETH 03/20/2025.
#1. Septic shock due to UTI/acute pyelonephritis, with Klebsiella bacteremia
- Off pressors now, hemodynamically stable, shock resolved
- ID service on case, completed IV Unasyn on 04/02, off antibiotics now
- Klebsiella and Enterococcus in urine cultures
- As needed phenylephrine infusion, doing well off pressors.
#2. Acute hypoxic respiratory failure
- Patient was intubated 03/21, extubated 03/25, continued to require supplemental oxygen, overall improving, decreasing oxygen demand, on room air now
- Bilateral interstitial opacities, basal predominant with interseptal thickening, suggestive of pulmonary edema versus interstitial lung disease
- Patient has baseline mild reticular changes on imaging suggestive of mild fibrosis, recent CT was with significant worsening
- Patient has severe aortic stenosis, poor tolerance of HD with significant uremia, fluid overload also was in differential diagnosis
- ILD exacerbation cannot be ruled out, patient empirically started on high-dose IV steroids on 03/28, gradually weaning since, last dose of high-dose prednisone 04/03.
- 03/30, RHC with PCWP only 8, also f/u CXR with improved interstitial opacities more suggestive of improving pulmonary edema rather than ILD
- Mild pneumomediastinum noted on imaging, suspect related to intubation and mechanical ventilation, resolved on subsequent x-rays
#3. ELIZABETH with hydronephrosis of transplanted kidney
- Severe pyelonephritis as well as obstructive uropathy with hydronephrosis noted on imaging
- S/p Disla catheter placement, essentially anuric
- No renal recovery noted, patient has been initiated on hemodialysis
- Due to poor tolerance of HD, 03/29, transitioned to CRRT
- History of renal transplant in 2019. MMF has been resumed per neprhology service.
- 03/30, With low PCWP and low filling pressure, and improving CXR, patient receiving 1 ltr IVF
- 03/31, urine output marginally improved, creatinine continues to be high, BUN continues to climb
- 04/01, IR guided dialysis catheter exchanged in right IJ, scheduled for HD trial. [place] during dialysis, patient became tachycardic, tachypneic with respiratory distress, prematurely had to and hemodialysis followed by clinical improvement.
#4. Epistaxis involving left nare s/p rapid Rhino via ENT - rapid rhino removed as of 03/26
- 04/04 had another episode of self-limiting epistaxis. Currently on heparin infusion
#5. History of pulmonary nodules and baseline mild ILD
- Review of prior imaging shows mild reticular changes mostly in the posterior and basal area
- Concerning for chronic ILD versus early fibrotic changes with prior history of COVID-19
- Patient follows up with Dr. Alex at [facility] pulmonary clinic.
- Connective tissue disease panel negative with normal ROXANNE and rheumatoid factor levels.
- Current worsening concerning for volume overload versus ILD exacerbation.
#6. Atrial fibrillation with rapid ventricular response
- Continue metoprolol as tolerated
- Eliquis on hold, currently on heparin infusion
#7. Severe with cardiogenic shock
- RHC 03/2025, PCWP 8, CI 1.9, SVR 1526.
-04/03, left heart cath without any significant coronary artery disease.
-04/04, scheduled for CT for TAVR measurements.
#8. Bleeding around HD catheter, 04/04
- Ongoing oozing noted around HD catheter site, nonresponsive to local pressure, Surgicel placement, pressure bag application.
- Area cleaned, ongoing bleeding noted from one of the stitches. Stitch removed, after injecting lidocaine new stitch placed at a different location. Hemostasis achieved. No further ongoing bleeding noted.
#9. LLL Pulmonary embolism, 04/04, newly detected
- Patient has had interruption of anticoagulation this admission due to epistaxis, lately has been on heparin infusion
- CT on 04/04 suggestive of small left lower lobe pulmonary embolism, patient currently on room air, saturating well not on any respiratory distress
- Updated cardiology team. Patient has critical aortic stenosis and unable to proceed with HD without definitive treatment for the stenosis. Currently pulmonary embolism seems to be well-tolerated both from respiratory standpoint as well as
hemodynamics. He is off pressors, on room air without any pleuritic discomfort. New diagnosis of pulmonary embolism increases risk for any procedures in the short-term however patient has hemodynamically significant critical aortic stenosis which
needs a definitive treatment sooner than later. Ongoing multidisciplinary discussion regarding next steps.
Conditions present prior to admission:
End-stage renal disease status post renal transplantation-[facility] 2018-follows at [facility]-Dr. Hines and locally Dr. Muhammad
Permanent atrial fibrillation/Eliquis.
Hypertension.
BPH.
Postherpetic neuralgia.
Chronic back pain.
Pulmonary nodule right base with negative PET followed by Dr. Olivarez-next CT 02/2025.
Fatty liver.
Inguinal hernia
Osteoporosis.
Hernia repair.
Cataract 2020. Transplant kidney December 2018.
DVT prophylaxis: Eliquis resumed.
Stress ulcer prophylaxis: N/A
FEES 03/29. PO as tolerated
Prognosis unfortunately poor with multiorgan dysfunction-goals of care discussion reviewed on 03/23 with the patient's daughters and with Dr. Genao; they understand that he is critically ill but they would like to continue full medical
management for now and are not interested in withdrawal care. As of 03/24, given that his mental status has improved, I recommend to continue with full aggressive management considering that he is improving.
Unfortunately as of 03/25, he continues to be hypoxic and severely deconditioned after extubation. Goals of care discussion held with the and daughter on 03/25. They would like to continue with full medical care, as the feels that this
is what Johann would have wanted. I also discussed this goals of care with the patient himself and he says to 'do what ever is needed' at this time.
The patient last saw Dr. Olivarez 03/08/2025 for ILD, restrictive lung disease and pulmonary nodule-has appointment for PFT 04/28/2025 at [address] appointment [address] Olivarez 04/29/2025 at 11:15 AM
Critical care statement: A total of 48 minutes of critical care time was provided for this patient today. This includes management of unstable vital signs, evaluation of the patient at bedside, reviewing the patient's pertinent medical records
including radiographs, microbiology, laboratory evaluations, and discussion with primary team, consultants, pharmacy, nutrition, physical therapy, case management, charge nurse, critical care nursing, and respiratory therapy.
Office note Dr. Olivarez 03/08/2025 in regards to pulmonary nodule:
CT imaging August 2024 revealed approximately 1.3 cm nodular opacity in the right base, not present on previous exam.
Underwent a repeat CT in November 2024 Showed resolution of previously seen right basilar nodule but a new 1.4 cm nodule in the right lower lobe.
Underwent a PET scan 12/17/2024 which showed evolution of right lower lobe nodule, now presenting as large ground glass nodule measuring up to 3.9 cm. Highly suggestive of benign infectious/inflammatory process.
Repeat CT 02/2025: now demonstrate bilateral peribronchiolar ground glass infiltrate bilaterally.Unclear etiology, differential Dx includes inflammatory/infectious process vs pulmonary edema.there is evidence of small bilateral pleural effusions,
with history of aortic stenosis pulmonary edema except possibility.With ongoind immunosupresion will need to keep in my oportunistic infection.
Will obtain ILD serology, proBNP and inflmmatory markers.
Bronchoscopy with BAL may be required-if there is no evidence of volume overload.-Of note He was treated with an antibiotic and steroids middle of October 2024. He denies any active Symptoms suggesting infection.If He does produce any phlegm, we will
submit sputum culture
Diagnostic data:
CT Chest 03/28/2025- Mild pneumomediastinum, with superior extension into the fat at the base of the neck, as well as at the posterior and lateral aspect of the right mid to upper thorax.
Diffuse bilateral interstitial and groundglass opacity. This could be related to fluid associated with interstitial and pulmonary edema related to volume overload or congestive heart failure. Alternatively, findings may be infectious in nature
related to atypical or viral pneumonitis. No focal dense consolidation.
Chest x-ray 03/18/2025-severe chronic inflammatory interstitial pneumonitis
CT abdomen and pelvis 03/18/2025-severe acute edema and inflammation around right lower quadrant renal transplantation, severe hydronephrosis, severe bilateral atrophic [place] kidneys, small bilateral pleural effusions, increased coarse interstitial
markings throughout both lower lobes, right middle lobe with severe chronic inflammatory interstitial pneumonitis
ILD serology 03/10/2025-negative rheumatoid factor, ROXANNE, SSA antibodies, scleroderma antibody, proteinase [address] chest 02/23/2025 Reviewed Uriel Leong 03/08/2025 06:25:26 AM EDT >1. Resolution of previously seen right lower lobe 1.4 cm nodule.2. Mild to moderate changes of pulmonary fibrosis as seen previously.3. Superimposed upon the changes of
fibrosis, there is new large amount of bilateralperibronchovascular interstitial and groundglass opacity with small amount of bilateral upper lungairspace consolidation as detailed above. There are very small bilateral pleural effusions. Whileedema
is a differential consideration, findings are more suggestive of a superimposed infectious orinflammatory process. There is associated mild mediastinal adenopathy.-
PET CT 12/17/2024 reviewed: Uriel Leong 03/08/2025 06:25:44 AM EDT >The previously seen solid right lower lobe nodule has evolved/changed in morphology, nowpresenting as a large groundglass nodule measuring up to 3.9 cm which demonstrates
max SUV 4.7(delayed 5.4). Otherwise, no suspicious FDG avid lesions.ABDOMEN and PELVIS:No suspicious FDG-avid lesions.SKELETON:No suspicious FDG-avid lesions.This suggests inflammatory process.-
CT chest 2023: Reviewed Uriel Leong 07/05/2023 08:49:26 AM >1. No significant acute abnormality identified in the chest within the limits of unenhanced CT, asdescribed above. Probable residual fibrotic changes in the lungs, less
likely active pneumonitis.-
CT chest 02/27/2023: Reviewed Uriel Leong 03/06/2023 08:42:39 AM >There has been significant further improvement in the patient's bilateral parenchymal airspacedisease when compared with the previous examinations.Currently, there is mild
left and moderate diffuse coarsening of the interstitial markingsthroughout both lungs which at this point may be residual scarring/fibrosis rather than acuteinflammatory disease.There is mild cardiomegalyThere is atherosclerosis-
CT chest 11/23/2022: showed evidence of postinflammatory fibrosis. Groundglass opacities have resolved..
Pulmonary function testing ( 07/13/2024� ):FEV1: 3.4 L-107%FVC:3.96 L-89%FEV1/FVC ratio:86%T.52 L-73%RV:44%ERV:RV/TLC ratio:23%DLCO: 13.69-50%DLCO/VA: 70%
Echo 05/19/24: Normal biventricular size and function. EF 65%. Severely dilated LA. Paradoxical low flow low gradient aortic stenosis. Mild AR.
Subjective Dataa
Subjective Data
Date of Service:
Date of Service: April 04, 2025
Chief Complaint: Radiation Oncologist Follow Up and Pulmonary Follow Up
Subjective:
Comfortably sitting in bed in no acute distress. Ongoing oozing noted from around dialysis catheter.
Review of Systems
Genitourinary: Other (All 14 systems reviewed and negative except as stated above in the history of present illness.)
Objective Data
Data Reviewed
Vital Signs / I&O / Oxygen:
Vital Signs
Temp Pulse Resp BP Pulse Ox
96.5 F L 82 14 123/70 96
04/04/25 08:00 04/04/25 12:00 04/04/25 12:00 04/04/25 12:00 04/04/25 11:00
Intake and Output
04/03/25 04/04/25 04/05/25
06:59 06:59 06:59
Intake Total 2845 / 2960 3944 / 4112 800 / 800
Output Total 1085 / 1085 1810 / 1985 575 / 575
Balance 1760 / 1875 2134 / 2127 225 / 225
SaO2 [ASV] 98
SaO2 [A/C] 96
SaO2 [NIV (Non Invasive 97
Ventilation)]
SaO2 96
Nasal Cannula flow liters per 2
minute
Physical Exam
General: Respiratory Distress (negative), Comfortable, Chills (negative) and Sweats (negative)
HEENT: Normocephalic, Anicteric and Other (Ongoing low-volume oozing noted around dialysis catheter site)
Cardiovascular: Irregular Rhythm (Irregularly irregular) and Peripheral Edema (negative)
Respiratory: Wheeze (n), Crackles (Significantly improved), Rhonchi (n), Non-Labored Respirations, Stridor (n) and Other (Bubbling in right hemithorax)
GI: Soft, Non Distended, Non Tender and Normal Bowel Sounds
Neurology: Tremors (negative) and Other (Somnolent although easily arousable to voice and tactile stimulation, answering questions appropriately)
Skin: Warm, Dry, Cyanosis (n), Jaundice (n) and Rash (n)
Labs/Micro/Reports
Lab Data
04/04/25 02:28
04/04/25 05:13
Laboratory Results
04/03/25 04/03/25 04/04/25
12:52 20:19 02:28
APTT 55.7 H 65.5 H 76.7 H
--- NOTE | 2025-04-04 13:14 | OR.RPT ---
Operative Report
Operative Report
Suture placement around HD catheter.
Ongoing bleeding noted around the HD catheter site. Dressing removed, area cleaned and draped. Ongoing oozing noted from one of the stitches. Under sterile condition, stitch removed. Local pressure held with gauze, once bleeding stopped, local
lidocaine was injected in the area about 2 mL, a new stitch was placed more laterally. No ongoing bleeding noted. Surgicel placed and dressing applied. Patient tolerated procedure well.
Heparin resumed.
--- NOTE | 2025-04-04 14:40 | W.PN.HOSP.TC ---
Today's Communication/Plan
-
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
Now on baseline prednisone
Assessment / Plan
Assessment / Plan
Physical Exam
General: No Apparent Distress
HEENT: Normocephalic, Moist mucous membranes
Respiratory: Rhonchi's, nasal cannula, R chest wall HD catheter noted
Cardiac: S1/S2, Irregular Rhythm and Murmur (3 out of 6 systolic murmur)
GI: Soft, Non Tender, Non Distended and Normal Bowel Sounds
-esteves
Skin: Warm. Dry.
Neuro: AAO x 3
Assessment/Plan
79-year-old with history of end-stage renal disease status post kidney transplant 2018 on antirejection medications, hypertension, hyperlipidemia, atrial fibrillation on , urinary retention status post catheter placement on Saturday presenting
to the emergency department with fever and chills as well as weakness. CT scan consistent with transplant pyelonephritis. He still has persistent hydro which likely reflects chronic hydro compared to his prior ultrasound. Known anemia. Picture
consistent with pyelonephritis with bandemia and lactic acidemia consistent with sepsis.
Acute hypoxic respiratory failure likely Multifactorial secondary to pulmonary edema versus pneumonia versus interstitial lung disease - intubated 03/21; extubated 03/25
History of pulmonary nodules
-On room air now (previously was intubated from 03/21/25 to 03/25/25)
-Patient has baseline mild reticular changes on imaging suggestive of mild fibrosis, recent CT was with significant worsening
-ILD exacerbation could not be ruled out, patient was empirically started on high-dose IV steroids on 03/28/25, now on chronic dose Prednisone 2.5 mg twice daily
-Status post right heart cath, wedge 8, signifies that he is dry, but suspected that he more likely had pulmonary edema (given improved interstitial opacities)
Pneumomediastinum
Septic shock associated with acute kidney injury, lactic acidosis secondary to Klebsiella bacteremia likely secondary to urinary tract infection
Transplant kidney pyelonephritis with Klebsiella and E. faecalis
Immunosuppressed
-Pressors remain off but may need during HD (see below)
-Completed 14 days course of Unasyn on 04/02/25
Hydronephrosis of transplanted kidney - Resolving, cannot rule out post obstructive polyuria. Catheter placed by Dr. Jim as outpatient.
Obstructive uropathy of transplant kidney, Esteves placed 03/15/25
Severe Pyelonephritis
- Maintain Esteves catheter for now
- Patient denies any alpha blockade but considering TURP
- Monitor I's and O's
Persistent ELIZABETH despite Esteves placement. Recent Treatment for rejection in December.
History of renal transplant in 2019 - donor renal transplant 2019 from [facility]
-Renal function can worsen with contrast given for cath on 04/02/25
-Required hemodialysis has received multiple session, but due to poor tolerance of HD, 03/29/25, transitioned to CRRT. Line clotted, off CRRT since.
-On temporary hemodialysis catheter
-Since HD catheter had been not functioning, it was exchanged on 04/01/25 -- HD attempt on 04/01/25 resulted in tachycardia and tachypnea during HD -- if patient needs urgent dialysis CRRT will be
provided to bridge till TAVR
-Avoid nephrotoxins or hypotension
-Severe aortic stenosis likely limiting factor for hemodynamic instability during HD
-Cellcept resumed 03/30/25 nephrology
-On steroids Prednisone 2.5 mg BID
Severe aortic stenosis with cardiogenic shock
- RHC indicates aortic stenosis as source of low cardiac output/cardiogenic shock.
Cardiology recommended TAVR vs BAVR.
- Per ID, Infection is resolved, completing abx course in 1 day -> He is cleared for TAVR from ID perspective -- if cannot tolerate HD, will need inpatient TAVR versus BAVR
- On 04/02/25, cardiac cath performed: it showed nonobstructive coronary artery disease in a right dominant system as described, mildly elevated (inappropriately low in setting of severe ) LV filling pressure.
Significant pullback gradient across the aortic valve in setting of known severe aortic valve stenosis. Unable to quantitatively assess degree of aortic stenosis given variable RR interval in Aflutter.
- Given the above, patient will need IV fluids as per cardiology
- In preparation for TAVR, stopped Eliquis and started heparin drip on 04/02/25 which is now switched to Argatroban -- cardiology okay with this as well
- Started ASA 81 mg daily (received ASA 325 on 04/02/25)
- Proceed with workup for TAVR; TAVR CT scan on 04/04/25 or 04/05/25 -- so far showed new PE on 04/04/25
Pulmonary embolus within the posterior left lower lobe segmental pulmonary artery on CT Chest on 04/04/25
-Seen on CT Chest done in preparation for aortic valve surgery
-Switch Heparin Drip to Argatroban given concern for HIT
Mild Thrombocytopenia
-Developed again on 04/03/25.
-I confirmed with pharmacist that patient has been getting Heparin since 03/20/25 with dialysis
-Heparin Drip was started on 04/02/25 but stopped on 04/04/25 (see below)
-With new left-sided PE seen on CT Chest (done on 04/04/25), concern for HIT, with new Pulmonary Embolism found on CT Chest 04/04/25, 4Ts score is 4
-Ordered Heparin Associated Platelet Antibody
-Start Argatroban on 04/04/25 -- contact worker, pulmonary and Dr. Morgan were all notified and onboard with this plan
-Consulted hematology
Bleeding around HD catheter, 04/04/25
-Appreciate [employer]/Containment Worker. Area cleaned, ongoing bleeding noted from one of the stitches. Stitch removed, after injecting lidocaine new stitch placed at a different location. Hemostasis achieved. Appreciate contact worker
Acute blood loss anemia with baseline chronic macrocytic anemia
Epistaxis and Hematuria earlier
-Was previously given IV iron infusion without improvement. Denies melena but did have epistaxis as above and also hematuria.
-Colonoscopy November ->single non-bleeding colonic angioectasia and internal hemorrhoids.
-Had been on Eliquis.
-Ferritin level elevated. Received blood transfusions this hospitalization
-Type and screen and trend H&H for now
-Transfuse hgb <7
-Eliquis resumed but switched to IV anticoagulation given cardiology recommendation in preparation for TAVR
Epistaxis
-Resolved but then came back again 04/04/25 while on Heparin Drip -- Heparin drip then resume after it resolved again -- now switched to Argatroban
-Previously evaluated by ENT, status post left NC packing. now removed. Appears deviated septum per ENT. Monitor
Left Eye Subconjunctival Hemorrhage
-Developed overnight 04/03/25-04/04/25
-Continue to monitor
Toxic metabolic encephalopathy likely secondary to shock versus ICU delirium versus hypoxemia versus uremia
-Appeared to be improving when off sedation
Atrial fibrillation with rapid ventricular response
Permanent Atrial Fibrillation
- Continue Argatroban
- Continue Metoprolol.
Hyperglycemia from Prednisone
-Continue Insulin
Diverticulosis
Sacrum Stage 2 Pressure Injury
-Wound care
DVT PPX - SCD's. Argatroban
Diet: Tube feeds
Code status - Full Code
High clinical risk with Argatroban administration with new PE and ongoing acute renal failure and hemodynamic instability with dialysis is a high risk encounter.
Anticipated Discharge: > 48 hours
Subjective/Interval History
-
Date of Service: April 04, 2025
Patient was seen and examined. Overnight he had bleeding around his IJ site as well as nosebleed.
Objective Data
-
Labs:
Laboratory Results
04/04/25 04/04/25 04/04/25
02:28 05:13 09:56
WBC 14.6 H
Hgb 7.7 L
Hct 25.1 L
Plt Count 117 L
APTT 76.7 H Cancelled
Sodium Cancelled 138
Potassium Cancelled 4.3
Chloride Cancelled 106
Carbon Dioxide Cancelled 24
BUN Cancelled 126 H*
Creatinine Cancelled 2.4 H
Glucose Cancelled 105 H
Calcium Cancelled 8.1 L
04/04/25
18:00
WBC
Hgb
Hct
Plt Count
APTT Pending
Sodium
Potassium
Chloride
Carbon Dioxide
BUN
Creatinine
Glucose
Calcium
Vital Signs:
Vital Signs
Temp Pulse Resp BP Pulse Ox
96.5 F L 83 20 132/82 98
04/04/25 08:00 04/04/25 13:00 04/04/25 13:00 04/04/25 13:00 04/04/25 13:00
I&O
04/03/25 04/04/25 04/05/25
06:59 06:59 06:59
Intake Total 2845 / 2960 3944 / 4112 918 / 918
Output Total 1085 / 1085 1810 / 1985 575 / 575
Balance 1760 / 1875 2134 / 2127 343 / 343
--- NOTE | 2025-04-04 15:55 | PTCARENOTE ---
Family to bedside. Labs drawn for HIT panel. Plan to start Argatroban as ordered upon receipt of PTT results.
[2025-04-04 16:01] LABS: INR 1.16; PT 15.1 Sec (11.4-14.6)
[2025-04-04 16:02] LABS: APTT 63.8 Sec (23.4-35.0)
[2025-04-04 16:17] LABS: ALT (SGPT) 39 U/L (0-50); AST (SGOT) 26 U/L (17-59); Albumin 2.9 g/dl (3.5-5.0); Alkaline Phosphatase 84 U/L (38-126); Total Protein 5.3 g/dl (6.3-8.2)
[2025-04-04] MEDS: ARGATROBAN 252.5 MG IV (16:20)
[2025-04-04] MEDS: NOVOLOG FLEXPEN-HIGH RESISTANCE 4 UNITS SC (17:02)
[2025-04-04 17:12] LABS: Glucose - Point of Care 210 mg/dl (70-99)
[2025-04-04 18:41] LABS: APTT 40.8 Sec (23.4-35.0)
--- NOTE | 2025-04-04 20:00 | PTCARENOTE ---
Rec'd pt resting in bed, at bedside, flat affect, JEFFERSON weakly, afib w/ occas pve, bp stable, weak distal pulses, skin warm/dry, RA, lungs decr in bases, sat 97, + bowel sounds, inc sm amt soft brown stool, bernardo care given, R ritcihe langstonoff- jazlyn
at 30/hr, 25ml/hr q4hr flush, esteves draining tea colored urine
[2025-04-04] MEDS: MELATONIN 5 MG PO (21:44)
[2025-04-04 21:54] LABS: Glucose - Point of Care 184 mg/dl (70-99)
--- NOTE | 2025-04-04 22:00 | PTCARENOTE ---
CHG bath done
--- NOTE | 2025-04-04 22:46 | PTCARENOTE ---
dilaudid 0.25mg iv given for pain
[2025-04-04 23:06] LABS: APTT 42.0 Sec (23.4-35.0)
[2025-04-05] VITALS (24 sets, daily range): BP systolic 113–160; BP diastolic 50–92; BMI 21.5
--- NOTE | 2025-04-05 00:21 | PTCARENOTE ---
sys reviewed, changes noted
--- NOTE | 2025-04-05 03:38 | PTCARENOTE ---
sys reviewed, changes noted, tube fdg off for CT in am
[2025-04-05 03:41] LABS: Hematocrit 23.2 % (39.0-52.0); Hemoglobin 7.1 g/dL (13.0-18.0); Mean Corp Hgb Conc. 30.6 g/dL (33.0-37.0); Mean Corpuscular Volume 97.9 fL (80.0-94.0); Platelet Count 112 10^3/uL (130-400); Red Cell Dist. Width 17.7 % (11.5-14.5)
[2025-04-05 03:43] LABS: APTT 43.5 Sec (23.4-35.0)
[2025-04-05 04:19] LABS: Calcium 8.0 mg/dl (8.4-10.2); Carbon Dioxide 25 mmol/L (22-30); Chloride 107 mmol/L (98-107); Estimated Creatinine Clearance 24 ml/min; Glucose 128 mg/dl (70-99); Potassium 4.3 mmol/L (3.5-5.1); Sodium 140 mmol/L (135-145); eGFR 26.78
[2025-04-05 04:31] LABS: Blood Urea Nitrogen 119 mg/dl (9-20)
--- NOTE | 2025-04-05 07:56 | W.PN.HOSP.TC ---
Today's Communication/Plan
-
CT scan for TAVR today
IV Argatroban
LR @ 75
off antibiotics
appreciate consultants
Assessment / Plan
Assessment / Plan
Physical Exam
General: No Apparent Distress
HEENT: Normocephalic, Moist mucous membranes
Respiratory: Rhonchi's, nasal cannula, R chest wall HD catheter noted
Cardiac: S1/S2, Irregular Rhythm and Murmur (3 out of 6 systolic murmur)
GI: Soft, Non Tender, Non Distended and Normal Bowel Sounds
-esteves
Skin: Warm. Dry.
Neuro: AAO x 3
Assessment/Plan
79-year-old with history of end-stage renal disease status post kidney transplant 2019 on antirejection medications, hypertension, hyperlipidemia, atrial fibrillation on , urinary retention status post catheter placement on Saturday presenting
to the emergency department with fever and chills as well as weakness, admitted for sepsis secondary to transplant pyelonephritis.
Acute hypoxic respiratory failure
- likely multifactorial secondary to pulmonary edema versus pneumonia versus interstitial lung disease - intubated 03/21; extubated 03/25
-intubated 03/21-03/25
-s/p empiric high dose steroids for possible ILD, now on home prednisone
-with improvement in CXR post fluid removal with HD, may have been related to fluid; s/p RHC with PCWP 8 (post fluid removal)
-s/p antibiotic course for possible pneumonia
Septic shock associated with acute kidney injury, lactic acidosis secondary to Klebsiella bacteremia likely secondary to urinary tract infection
Transplant kidney pyelonephritis with Klebsiella and E. faecalis
Immunosuppressed
-s/p 14 days IV antibiotics (completed 04/02/25)
-s/p pressor administration, now off
Pneumomediastinum
Hydronephrosis of transplanted kidney
- Resolving, cannot rule out post obstructive polyuria. Catheter placed by Dr. Jim as outpatient.
- Obstructive uropathy of transplant kidney, Esteves placed 03/15/25
- Maintain Esteves catheter for now
- Patient denies any alpha blockade but considering TURP
- Monitor I's and O's
History of renal transplant in 2019 - donor renal transplant 2019 from [facility]
Acute Kidney Injury
- Recent Treatment for rejection in December.
-Renal function can worsen with contrast given for cath on 04/02/25
-Required hemodialysis has received multiple session, but due to poor tolerance of HD, 03/29/25, transitioned to CRRT. Line clotted, off CRRT since.
-On temporary hemodialysis catheter
-Since HD catheter had been not functioning, it was exchanged on 04/01/25 -- HD attempt on 04/01/25 resulted in tachycardia and tachypnea during HD -- if patient needs urgent dialysis CRRT will be
provided to bridge till TAVR
-Avoid nephrotoxins or hypotension
-Severe aortic stenosis likely limiting factor for hemodynamic instability during HD
-Cellcept resumed 03/30/25 nephrology
-On steroids Prednisone 2.5 mg BID
Severe aortic stenosis with cardiogenic shock
- RHC indicates aortic stenosis as source of low cardiac output/cardiogenic shock.
Cardiology recommended TAVR vs BAVR.
- Per ID, Infection is resolved, He is cleared for TAVR from ID perspective -- if cannot tolerate HD, will need inpatient TAVR versus BAVR
- On 04/02/25, cardiac cath performed: it showed nonobstructive coronary artery disease in a right dominant system as described, mildly elevated (inappropriately low in setting of severe ) LV filling pressure.
Significant pullback gradient across the aortic valve in setting of known severe aortic valve stenosis. Unable to quantitatively assess degree of aortic stenosis given variable RR interval in Aflutter.
- Given the above, patient will need IV fluids as per cardiology
- In preparation for TAVR, stopped Eliquis and started heparin drip on 04/02/25 which is now switched to Argatroban -- cardiology okay with this as well
- Started ASA 81 mg daily (received ASA 325 on 04/02/25)
- Proceed with workup for TAVR; TAVR CT scan on 04/04/25 or 04/05/25 -- so far showed new PE on 04/04/25
Pulmonary embolus within the posterior left lower lobe segmental pulmonary artery on CT Chest on 04/04/25
-Seen on CT Chest done in preparation for aortic valve surgery
-Switch Heparin Drip to Argatroban given concern for HIT
Mild Thrombocytopenia
-Developed again on 04/03/25.
-I confirmed with pharmacist that patient has been getting Heparin since 03/20/25 with dialysis
-Heparin Drip was started on 04/02/25 but stopped on 04/04/25 (see below)
-With new left-sided PE seen on CT Chest (done on 04/04/25), concern for HIT, with new Pulmonary Embolism found on CT Chest 04/04/25, 4Ts score is 4
-Ordered Heparin Associated Platelet Antibody
-Start Argatroban on 04/04/25 -- oil well services superintendent, pulmonary and Dr. Morgan were all notified and onboard with this plan
-Consulted hematology
Bleeding around HD catheter, 04/04/25
-Appreciate Supply Chain Analyst. Area cleaned, ongoing bleeding noted from one of the stitches. Stitch removed, after injecting lidocaine new stitch placed at a different location. Hemostasis achieved. Appreciate oil well services superintendent
Acute blood loss anemia with baseline chronic macrocytic anemia
Epistaxis and Hematuria earlier
-Was previously given IV iron infusion without improvement. Denies melena but did have epistaxis as above and also hematuria.
-Colonoscopy November ->single non-bleeding colonic angioectasia and internal hemorrhoids.
-Had been on Eliquis.
-Ferritin level elevated. Received blood transfusions this hospitalization
-Type and screen and trend H&H for now
-Transfuse hgb <7
-Eliquis resumed but switched to IV anticoagulation given cardiology recommendation in preparation for TAVR
Epistaxis
-Resolved but then came back again 04/04/25 while on Heparin Drip -- Heparin drip then resume after it resolved again -- now switched to Argatroban
-Previously evaluated by ENT, status post left NC packing. now removed. Appears deviated septum per ENT. Monitor
Left Eye Subconjunctival Hemorrhage
-Developed overnight 04/03/25-04/04/25
-Continue to monitor
Toxic metabolic encephalopathy likely secondary to shock versus ICU delirium versus hypoxemia versus uremia
-Appeared to be improving when off sedation
Atrial fibrillation with rapid ventricular response
Permanent Atrial Fibrillation
- Continue Argatroban
- Continue Metoprolol.
Hyperglycemia from Prednisone
-Continue Insulin
Diverticulosis
Sacrum Stage 2 Pressure Injury
-Wound care
DVT PPX - SCD's. Argatroban
Diet: Tube feeds
Code status - Full Code
High clinical risk with Argatroban administration with new PE and ongoing acute renal failure and hemodynamic instability with dialysis is a high risk encounter.
55 minutes spent on patient care
Anticipated Discharge: > 48 hours
Subjective/Interval History
-
Date of Service: April 05, 2025
Objective Data
-
Labs:
Laboratory Results
04/04/25 04/05/25 04/05/25
22:44 03:21 07:50
WBC 14.2 H
Hgb 7.1 L
Hct 23.2 L
Plt Count 112 L
APTT 42.0 H 43.5 H Pending
Sodium 140
Potassium 4.3
Chloride 107
Carbon Dioxide 25
BUN 119 H*
Creatinine 2.4 H
Glucose 128 H
Calcium 8.0 L
Vital Signs:
Vital Signs
Temp Pulse Resp BP Pulse Ox
97.5 F 99 22 145/86 95
04/05/25 07:19 04/05/25 05:00 04/05/25 05:00 04/05/25 05:00 04/05/25 05:00
I&O
04/04/25 04/05/25 04/06/25
06:59 06:59 06:59
Intake Total 3944 / 4112 2918.4 / 2918.4
Output Total 1809
Balance 2133 / 2126 998.4 / 998.4
[2025-04-05 08:14] LABS: Glucose - Point of Care 114 mg/dl (70-99)
--- NOTE | 2025-04-05 08:18 | W.PN.INTV ---
Today's Communication / Plan
Recommendations
- Start buspar given he appears depressed
- NPO p MN for TAVR
- Continue chronic prednisone and MMF
- Defer HD/CRRT for now as he is nonoliguric; trend sCr and UOP
- Goal BG 140-180
- Continue argatrovan; follow up TOBIAS panel; if negative, then change back to heparin infusion, monitor for signs of bleeding
- Guarded prognosis
- Continue ICU level of care; if stable by tomorrow then will downgrade to IMU
Assessment
-
79-year-old male with a 1 pack year smoking history, hypertension, nephrolithiasis, pulmonary nodule, atrial fibrillation, and renal transplantation on mycophenolate and prednisone with recent ultrasound showing transplant hydronephrosis presented
with 2 days of fever found to be septic with ELIZABETH-paid intern consulted for sepsis/shock/ELIZABETH 03/20/2025.
#1. Septic shock due to UTI/acute pyelonephritis, with Klebsiella bacteremia
- Off pressors now, hemodynamically stable, shock state resolved
- ID service on case, completed IV Unasyn on 04/02, off antibiotics now
- Klebsiella and Enterococcus in urine culture from 03/18/2025
- As needed phenylephrine infusion, doing well off pressors.
#2. Acute hypoxic respiratory failure
- Patient was intubated 03/21, extubated 03/25, continued to require supplemental oxygen, overall improving, decreasing oxygen demand, on room air now
- Bilateral interstitial opacities, basal predominant with interseptal thickening, suggestive of pulmonary edema versus interstitial lung disease
- Patient has baseline mild reticular changes on imaging suggestive of mild fibrosis, recent CT was with significant worsening
- Patient has severe aortic stenosis, poor tolerance of HD with significant uremia, fluid overload also was in differential diagnosis
- ILD exacerbation cannot be ruled out, patient empirically started on high-dose IV steroids on 03/28, gradually weaning since, last dose of prednisone 04/04 (20mg)
- 03/30, RHC with PCWP only 8, also f/u CXR with improved interstitial opacities more suggestive of improving pulmonary edema rather than ILD
- Mild pneumomediastinum noted on imaging, suspect related to intubation and mechanical ventilation, stable on recent CT TAVR
#3. ELIZABETH with hydronephrosis of transplanted kidney - now nonoliguric; last HD session 04/01 (did not tolerate)
- Severe pyelonephritis as well as obstructive uropathy with hydronephrosis noted on imaging
- S/p Disla catheter placement
- No renal recovery noted, patient has been initiated on hemodialysis
- Due to poor tolerance of HD, 03/29, transitioned to CRRT
- History of renal transplant in 2019. MMF has been resumed on 03/30 per nephrology service.
- 03/30, With low PCWP and low filling pressure, and improving CXR, patient receiving 1 ltr IVF
- 03/31, urine output marginally improved, creatinine continues to be high, BUN continues to climb
- 04/01, IR guided dialysis catheter exchanged in right IJ, scheduled for HD trial. [place] during dialysis, patient became tachycardic, tachypneic with respiratory distress, prematurely had to end hemodialysis followed by clinical improvement.
#4. Epistaxis involving left nare s/p rapid Rhino via ENT - rapid rhino removed as of 03/26
- 04/04 had another episode of self-limiting epistaxis. Currently on argatroban infusion
#5. History of pulmonary nodules and baseline mild ILD
- Review of prior imaging shows mild reticular changes mostly in the posterior and basal area
- Concerning for chronic ILD versus early fibrotic changes with prior history of COVID-19
- Patient follows up with Dr. Olivarez at [facility] pulmonary clinic.
- Connective tissue disease panel negative with normal ROXANNE and rheumatoid factor levels.
- Current worsening concerning for volume overload versus ILD exacerbation (high inflammatory markers with ESR 94, CRP 269 on 03/28).
#6. Atrial fibrillation with rapid ventricular response
- Continue metoprolol as tolerated
- Eliquis on hold, currently on argatroban infusion
#7. Severe with cardiogenic shock
- RHC 03/2025, PCWP 8, CI 1.9, SVR 1526.
-04/03, left heart cath without any significant coronary artery disease.
-Awaiting TAVR tomorrow - keep NPO p MN
#8. Bleeding around HD catheter, 04/04
- Ongoing oozing noted around HD catheter site, nonresponsive to local pressure, Surgicel placement, pressure bag application.
- Area cleaned, ongoing bleeding noted from one of the stitches. Stitch removed, after injecting lidocaine new stitch placed at a different location. Hemostasis achieved. No further ongoing bleeding noted.
#9. LLL Pulmonary embolism, 04/04, newly detected
- Patient has had interruption of anticoagulation this admission due to epistaxis
- CT on 04/04 suggestive of small left lower lobe pulmonary embolism, patient currently on room air, saturating well not on any respiratory distress
- Updated cardiology team. Patient has critical aortic stenosis and unable to proceed with HD without definitive treatment for the stenosis. Currently pulmonary embolism seems to be well-tolerated both from respiratory standpoint as well as
hemodynamics. He is off pressors, on room air without any pleuritic discomfort. New diagnosis of pulmonary embolism increases risk for any procedures in the short-term however patient has hemodynamically significant critical aortic stenosis which
needs a definitive treatment sooner than later. As stated above, he is awaiting TAVR tomorrow (04/06)
- TOBIAS panel is pending - -> continue argatroban for now; LE duplex to be performed today (04/05); transfuse blood products if needed to keep plt>50k, Hb>7-8g/dL
Conditions present prior to admission:
End-stage renal disease status post renal transplantation-[facility] 2018-follows at [facility]-Dr. Hines and locally Dr. Muhammad
Permanent atrial fibrillation/Eliquis.
Hypertension.
BPH.
Postherpetic neuralgia.
Chronic back pain.
Pulmonary nodule right base with negative PET followed by Dr. Olivarez-next CT 02/2025.
Fatty liver.
Inguinal hernia
Osteoporosis.
Hernia repair.
Cataract 2020. Transplant kidney December 2018.
DVT prophylaxis: on argatroban
Stress ulcer prophylaxis: N/A
FEES 03/29. on pur�ed diet
Prognosis unfortunately poor with multiorgan dysfunction-goals of care discussion reviewed on 03/23 with the patient's daughters and with Dr. Genao; they understand that he is critically ill but they would like to continue full medical
management for now and are not interested in withdrawal care. As of 03/24, given that his mental status has improved, I recommend to continue with full aggressive management considering that he is improving.
Unfortunately as of 03/25, he continues to be hypoxic and severely deconditioned after extubation. Goals of care discussion held with the and daughter on 03/25. They would like to continue with full medical care, as the feels that this
is what Johann would have wanted. I also discussed this goals of care with the patient himself and he says to 'do what ever is needed' at this time.
The patient last saw Dr. Olivarez 03/08/2025 for ILD, restrictive lung disease and pulmonary nodule-has appointment for PFT 04/28/2025 at 3 PM [address] appointment [address] Olivarez 04/29/2025 at 11:15 AM
Continue ICU level of care, however if stable by tomorrow (04/06), then will downgrade to IMU.
Office note Dr. Olivarez 03/08/2025 in regards to pulmonary nodule:
CT imaging August 2024 revealed approximately 1.3 cm nodular opacity in the right base, not present on previous exam.
Underwent a repeat CT in November 2024 Showed resolution of previously seen right basilar nodule but a new 1.4 cm nodule in the right lower lobe.
Underwent a PET scan 12/17/2024 which showed evolution of right lower lobe nodule, now presenting as large ground glass nodule measuring up to 3.9 cm. Highly suggestive of benign infectious/inflammatory process.
Repeat CT 02/2025: now demonstrate bilateral peribronchiolar ground glass infiltrate bilaterally.Unclear etiology, differential Dx includes inflammatory/infectious process vs pulmonary edema.there is evidence of small bilateral pleural effusions,
with history of aortic stenosis pulmonary edema except possibility.With ongoind immunosupresion will need to keep in my oportunistic infection.
Will obtain ILD serology, proBNP and inflmmatory markers.
Bronchoscopy with BAL may be required-if there is no evidence of volume overload.-Of note He was treated with an antibiotic and steroids middle of October 2024. He denies any active Symptoms suggesting infection.If He does produce any phlegm, we will
submit sputum culture
Diagnostic data:
CT Chest 03/28/2025- Mild pneumomediastinum, with superior extension into the fat at the base of the neck, as well as at the posterior and lateral aspect of the right mid to upper thorax.
Diffuse bilateral interstitial and groundglass opacity. This could be related to fluid associated with interstitial and pulmonary edema related to volume overload or congestive heart failure. Alternatively, findings may be infectious in nature
related to atypical or viral pneumonitis. No focal dense consolidation.
Chest x-ray 03/18/2025-severe chronic inflammatory interstitial pneumonitis
CT abdomen and pelvis 03/18/2025-severe acute edema and inflammation around right lower quadrant renal transplantation, severe hydronephrosis, severe bilateral atrophic [place] kidneys, small bilateral pleural effusions, increased coarse interstitial
markings throughout both lower lobes, right middle lobe with severe chronic inflammatory interstitial pneumonitis
ILD serology 03/10/2025-negative rheumatoid factor, ROXANNE, SSA antibodies, scleroderma antibody, proteinase [address] chest 02/23/2025 Reviewed Uriel Leong 03/08/2025 06:25:26 AM EDT >1. Resolution of previously seen right lower lobe 1.4 cm nodule.2. Mild to moderate changes of pulmonary fibrosis as seen previously.3. Superimposed upon the changes of
fibrosis, there is new large amount of bilateralperibronchovascular interstitial and groundglass opacity with small amount of bilateral upper lungairspace consolidation as detailed above. There are very small bilateral pleural effusions. Whileedema
is a differential consideration, findings are more suggestive of a superimposed infectious orinflammatory process. There is associated mild mediastinal adenopathy.-
PET CT 12/17/2024 reviewed: Uriel Leong 03/08/2025 06:25:44 AM EDT >The previously seen solid right lower lobe nodule has evolved/changed in morphology, nowpresenting as a large groundglass nodule measuring up to 3.9 cm which demonstrates
max SUV 4.7(delayed 5.4). Otherwise, no suspicious FDG avid lesions.ABDOMEN and PELVIS:No suspicious FDG-avid lesions.SKELETON:No suspicious FDG-avid lesions.This suggests inflammatory process.-
CT chest 2023: Reviewed Uriel Leong 07/05/2023 08:49:26 AM >1. No significant acute abnormality identified in the chest within the limits of unenhanced CT, asdescribed above. Probable residual fibrotic changes in the lungs, less
likely active pneumonitis.-
CT chest 02/27/2023: Reviewed Uriel Leong 03/06/2023 08:42:39 AM >There has been significant further improvement in the patient's bilateral parenchymal airspacedisease when compared with the previous examinations.Currently, there is mild
left and moderate diffuse coarsening of the interstitial markingsthroughout both lungs which at this point may be residual scarring/fibrosis rather than acute inflammatory disease.There is mild cardiomegaly. There is atherosclerosis-
CT chest 11/23/2022: showed evidence of postinflammatory fibrosis. Groundglass opacities have resolved..
Pulmonary function testing ( 07/13/2024� ):FEV1: 3.4 L-107%FVC:3.96 L-89%FEV1/FVC ratio:86%T.52 L-73%RV:44%ERV:RV/TLC ratio:23%DLCO: 13.69-50%DLCO/VA: 70%
Echo 05/19/24: Normal biventricular size and function. EF 65%. Severely dilated LA. Paradoxical low flow low gradient aortic stenosis. Mild AR.
Total time spent today was 82 minute for this encounter. Time includes reviewing laboratory tests/imaging results, reviewing pertinent medical records, obtaining and reviewing medical history, performing an appropriate physical exam, ordering
medications, tests and procedures. Time also includes documentation of this encounter, coordinating patient care and communicating with other healthcare professionals. Total time does not include separately billed tests or procedures performed on
this date of service.
Subjective Dataa
Subjective Data
Date of Service:
Date of Service: April 05, 2025
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
Subjective:
Patient was seen and evaluated this morning. Current heart rate 95, BP 131/68 and he is saturate 96% on room air. Right nare and DHT is in place getting TF. He is making urine - appears dark. Last HD on 04/01. Currently on argatroban. at
bedside - all questions answered. Pt is more awake than he was when I last saw him >1 week ago.
Patient was seen and evaluated on 04/05/2025
Review of Systems
General: Other ( negative unless mentioned above)
Objective Data
Data Reviewed
Vital Signs / I&O / Oxygen:
Vital Signs
Temp Pulse Resp BP Pulse Ox
97.5 F 120 17 141/92 95
04/05/25 07:19 04/05/25 09:10 04/05/25 09:00 04/05/25 09:10 04/05/25 09:00
Intake and Output
04/04/25 04/05/25 04/06/25
06:59 06:59 06:59
Intake Total 3944 / 4112 2918.4 / 2997.4 346 / 346
Output Total 1809 / 1984 1920 / 1920 250 / 250
Balance 2134 / 2127 998.4 / 1077.4 96 / 96
SaO2 [ASV] 98
SaO2 [A/C] 96
SaO2 [NIV (Non Invasive 97
Ventilation)]
SaO2 95
Nasal Cannula flow liters per 2
minute
Physical Exam
General: Respiratory Distress (negative), Comfortable, Chills (negative) and Sweats (negative)
HEENT: Normocephalic and Anicteric
Cardiovascular: Irregular Rhythm (Irregularly irregular), Murmur (LIANG heard best at RUSB) and Peripheral Edema (negative)
Respiratory: Wheeze (n), Crackles (bilateral), Rhonchi (n), Non-Labored Respirations and Stridor (n)
GI: Soft, Non Distended, Non Tender and Normal Bowel Sounds
Neurology: Awake, Alert, Oriented and Tremors (negative)
Skin: Warm, Dry, Cyanosis (n), Jaundice (n) and Rash (n)
Labs/Micro/Reports
Lab Data
04/05/25 03:21
04/05/25 03:21
Laboratory Results
04/04/25 04/04/25 04/04/25
09:56 15:44 18:17
PT 15.1 H
INR 1.16
APTT Cancelled 63.8 H 40.8 H
04/04/25 04/05/25 04/05/25
22:44 03:21 08:00
PT
INR
APTT 42.0 H 43.5 H 48.3 H
[2025-04-05 08:23] LABS: APTT 48.3 Sec (23.4-35.0)
[2025-04-05] MEDS: LOW STRENGTH ASPIRIN 81 MG PO (09:10)
[2025-04-05] MEDS: LOPRESSOR 25 MG PO ×2 (09:10→19:25)
[2025-04-05] MEDS: DELTASONE 2.5 MG PO ×2 (09:10→19:25)
[2025-04-05] MEDS: CELLCEPT 1000 MG PO ×2 (09:10→19:25)
--- NOTE | 2025-04-05 09:15 | PTOTSP ---
Speech Language Pathology
Pt seen for dysphagia tx. Completed 1 set of 10 effortful swallow exercises with use of ice chips. Also trialed 4 single cup sips of thin water. No change in vocal quality or overt coughing noted. Aspiration of thin liquids on FEES was
responsive, but aspiration of mildly thick liquids was silent. Pt is at high risk for aspiration related complications, so will not consider upgrade of diet until repeat instrumental swallowing assessment completed. Would favor VSE over FEES given
second episode of epistaxis 04/04. Plan is for TAVR (current timing unknown). Would recommend waiting until after TAVR if to be done in the next couple of days to account for any possible changes in swallowing post procedure.
Recommend:
(1) VSE after TAVR completed to see if diet upgrade possible
(2) Continue IDDSI 4 (puree) and IDDSI 3 (moderately thick liquids)
(3) Medications whole vs crushed in puree
(4) Allow single sips of thin water post oral care per Aspiration Risk Hydration Protocol (given supervision)
4. Oral care 4x/day with suctioning as needed
5. Swallowing strategies (i.e., small single sips, slow rate, breaks for breathing, small meals, take breaks and use non-oral means in place if fatigued).
6. SALES ENABLEMENT CONSULTANT to follow
--- NOTE | 2025-04-05 09:34 | W.PN.NEPH.PH ---
Today's Communication / Plan
-
continue IVF
Assessment/Plan
-
This is a 79-year-old gentleman who follows in our office with Dr. Muhammad after donor renal transplant 2019 from [facility]. His transplant course has been complicated by development of nephrotic range proteinuria as well as recent
cellular rejection December of this year. The episodes treated with Solu-Medrol. His creatinine has risen quickly over time in the last several months. He has gone from a creatinine around 2 now up to 4.4. He was noted to have hydronephrosis of
the transplanted kidney recently on ultrasound as well as CT scan. Esteves catheter was placed by urology a few days ago. His appetite has been poor as of late. Recently he also developed fever and malaise and this has brought him to the emergency
room. He was noted to be febrile in the ER. Blood pressure was stable though lower than his home readings of 132. He was 100 systolic in the ER. Creatinine was 4.7 with elevated lactate level and elevated white count. CT of the abdomen and
pelvis were performed with suspicion for pyelonephritis of the transplant. We are asked to assist in management of his renal issues.
Assessment
Sepsis syndrome, possible pyelonephritis
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
donor renal transplant with FSGS, recent T-cell rejection
Obstructive uropathy, Esteves catheter in place
ELIZABETH..
Anemia
Hyponatremia
lactic acidosis
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
Plan
Patient failed on intermittent dialysis hemodynamically due to aortic stenosis
Conventional dialysis could not be offered for the patient
Status post left and right heart cath 04/02 reviewed (nonobstructive coronary disease)
If dialysis required we will have to initiate CRRT to bridge to TAVR
No emergent HD needed
continue IVF
argatroban per primary team
last belatacept dose was 03/12 (450mg)
continue pred/MMF
hoping for TAVR this admission
critically care time 31 minutes
-
-
Date of Service: April 05, 2025
CC / HPI / ROS
-
Chief Complaint:
Sepsis
History of Present Illness:
Acute kidney injury multifactorial obstructive uropathy, sepsis
BPs stable remains off pressors
s/p CT chest 04/05 am
Creatinine stabe 2.4 but BUN down to 119
on argatroban for PE
critically ill in ICU
Review of Systems:
non oliguric with esteves
no fever
no pain
Labs
-
Labs:
WBC 14.2 10^3/uL (4.8-10.8) H 04/05/25 03:21
RBC 2.37 10^6/uL (4.70-6.10) L 04/05/25 03:21
Hgb 7.1 g/dL (13.0-18.0) L 04/05/25 03:21
Hct 23.2 % (39.0-52.0) L 04/05/25 03:21
Plt Count 112 10^3/uL (130-400) L 04/05/25 03:21
Sodium 140 mmol/L (135-145) 04/05/25 03:21
Potassium 4.3 mmol/L (3.5-5.1) 04/05/25 03:21
Chloride 107 mmol/L (98-107) 04/05/25 03:21
Carbon Dioxide 25 mmol/L (22-30) 04/05/25 03:21
BUN 119 mg/dl (9-20) H* 04/05/25 03:21
Creatinine 2.4 mg/dL (0.7-1.3) H 04/05/25 03:21
eGFR 26.78 04/05/25 03:21
Glucose 128 mg/dl (70-99) H 04/05/25 03:21
Calcium 8.0 mg/dl (8.4-10.2) L 04/05/25 03:21
Phosphorus Cancelled 03/29/25 17:00
Alm-S-Dqzchhxbdff Pept 74367 pg/ml 03/28/25 03:28
Albumin 2.9 g/dl (3.5-5.0) L 04/04/25 15:44
Physical Exam
-
Vital Signs:
Vital Signs
Temp Pulse Resp BP Pulse Ox
97.5 F 120 17 141/92 95
04/05/25 07:19 04/05/25 09:10 04/05/25 09:00 04/05/25 09:10 04/05/25 09:00
Cardiovascular:: Regular rate and rhythm
Respiratory:: Bilateral: Coarse
Lung Excursion:: Normal
Abdomen:: Nontender and Soft
Bowel Sounds:: Normal
Extremity Edema:: None: Bilateral:
[2025-04-05] MEDS: NOVOLOG FLEXPEN-HIGH RESISTANCE SC (10:57)
[2025-04-05] MEDS: MIRALAX PO (10:58)
[2025-04-05] MEDS: LR 1000 IV ×2 (10:58→22:09)
[2025-04-05] MEDS: SENOKOT-S PO ×2 (10:58→19:26)
[2025-04-05] MEDS: NOVOLOG FLEXPEN-HIGH RESISTANCE 1 UNITS SC (11:59)
[2025-04-05 12:10] LABS: Glucose - Point of Care 108 mg/dl (70-99)
[2025-04-05 12:37] LABS: APTT 57.0 Sec (23.4-35.0)
[2025-04-05] MEDS: DILAUDID 0.5 MG IV ×2 (14:48→19:45)
--- NOTE | 2025-04-05 15:42 | PTCARENOTE ---
Family requesting update from physician. Dr. Genao notified. Awaiting cardiology input. Dr. Paredes notified via TC. and daughter was already provided nursing update around 10 am. On arrival they were informed by myself that there were no
changes and that he ate all his lunch that was fed to him.
--- NOTE | 2025-04-05 15:42 | CM ---
IV/Argatroban, US venous of B/L LE with no thrombosis, CT scan for TAVR, proposed TAVR this admission. No HD at this time. Discharge POC: Rec for SNF. Previous referrals were for SNF's with HD. Will need to get additional preferences closer to
discharge and after TAVR if done.
--- NOTE | 2025-04-05 16:15 | PTCARENOTE ---
Galina Sosa notified via TC that family would like an update. I was notified that Dr. Blanchard had just provided an update over the phone but would be up to speak with them as well.
--- NOTE | 2025-04-05 17:15 | W.PN.CD ---
Today's Communication / Plan
-
transition back to heparin
NPO@MN for TAVR
will get 2U pRBCs prior to OR
Impression / Plan
-
79M with prior renal transplant in 2019 presenting with septic shock and ELIZABETH now on CRRT. New diagnosis this admission of severe aortic stenosis.
Aortic stenosis, severe:
-concern that severe is contributing to shock and failure to tolerate HD
-long multidisciplinary discussions over prior days including primary team, renal, CT surgery, cardiology, patient & family: It is felt that severe may be contributing to inability to tolerate iHD. Family and patient understand that even with
TAVR, patient may still fail to tolerant iHD and have poor prognosis. After discussion, decision is to proceed with high risk TAVR. Patient would not do well with open surgery; surgical backup is likely of not benefit. Per ID, no concern for ongoing
infection or need for further antibiotics prior to valve replacement. Will give 2U pRBCs tomorrow morning. Will transition back to heparin periprocedure given TOBIAS stefan negative.
EILZABETH, hx kidney transplant with evidence for rejection, hydronephrosis with Disla:
-had hemodynamic instability on HD, attempted HD again today after volume resuscitation and again failed
-in discussion with renal, though he still makes urine there is not a great deal of expectation for longterm renal recovery
Acute respiratory failure:
-now extubated, minimal O2
-history of ILD, has been stable as outpatient
-CT scan 03/28/25: Mild pneumomediastinum, with superior extension into the fat at the base of the neck, as well as at the posterior and lateral aspect of the right mid to upper thorax. Diffuse bilateral interstitial and groundglass opacity. This
could be related to fluid associated with interstitial and pulmonary edema related to volume overload or congestive heart failure. Alternatively, findings may be infectious in nature related to atypical or viral pneumonitis. No focal dense
consolidation. On IV steroids. On IV abx.
-No volume overload on cath
Septic shock, in setting of pyelonephrosis, resolved
-no longer on pressors
-ID following, s/p 2 week abx course
Permanent AFIB:
-on eliquis, then heparin, then argatroban given cocnern for TOBIAS, will now transition back to heparin bernardo-TAVR and eventual DOAC
-on metoprolol, rate currently controlled- follow telemetry
-follow telemetry
Anemia:
-slowly drifting, in recent days may be due to IVF
-no clinical bleeding
-2U pRBCs before TAVR
Data;
-Echo 03/23/25: Normal biventricular size and systolic function. Severe LFLG aortic stenosis: reported mean 39 mmHg (on a long RR interval, looks more like 30 on standard beats, but DVI 0.2 and and estimated SHU 0.46 cms), SVI 17 mL/m2. Unlikely
that anemia is causing significant overestimation of severity. Anemia may produce high gradient with borderline severe valve area that corrects with reduction in flow, but he is already in a low flow state. Severe left atrial enlargement.
Compared to echocardiogram dated 05/19/2024 the valve looks perhaps visually progressed and quantitative severity is increased.
Physical Exam
Vital Signs/Labs
Vital Signs
Temp Pulse Resp BP Pulse Ox
36.5 C 106 21 127/67 97
04/05/25 15:09 04/05/25 15:00 04/05/25 15:00 04/05/25 15:00 04/05/25 15:00
04/04/25 04/05/25 04/06/25
06:59 06:59 06:59
Actual Weight 68.2 kg 71.7 kg
04/05/25 03:21
04/05/25 03:21
PT 15.1 Sec (11.4-14.6) H 04/04/25 15:44
INR 1.16 04/04/25 15:44
APTT 57.0 Sec (23.4-35.0) H 04/05/25 12:01
Magnesium 2.6 mg/dl (1.6-2.3) H 03/30/25 02:36
Triglycerides 220 mg/dl (10-149) H 03/27/25 03:27
03/19/25 03/26/25 03/28/25
23:51 03:21 03:28
Rlr-K-Svsjaooqnef Pept > [id number]
Physical Exam
Constitutional: Comfortable
Cardiovascular: Rhythm & rate is regular
Respiratory: Respiratory effort normal
Neuro/Psych: AO x 3
Data Reviewed
-
Date of Service: April 05, 2025
Medical Decision Making: Reviewed Test Results
Labs: Labs Reviewed by me
--- NOTE | 2025-04-05 17:22 | W.PN.UPDATE ---
Update Note
Progress Note Update
HIT Ab Negative, OK to stop Argatroban and start IV heparin gtt. Discussed dosing with pharmacy. Discussed with Cardiology, Planting Material Unloader and Heme.
[2025-04-05 17:44] LABS: Glucose - Point of Care 173 mg/dl (70-99)
[2025-04-05] MEDS: NOVOLOG FLEXPEN-HIGH RESISTANCE 2 UNITS SC (18:05)
[2025-04-05] MEDS: HEPARIN 25000 UNITS/250 ML IV (18:05)
[2025-04-05] MEDS: BUSPAR 5 MG PO ×2 (18:06→22:09)
[2025-04-05] MEDS: VENTOLIN NEBULES 2.5 MG INH (21:00)
[2025-04-05] MEDS: MELATONIN 5 MG PO (22:09)
--- NOTE | 2025-04-05 22:21 | PTCARENOTE ---
Pt received start of shift, HR afib/flutter with occasional PVCs on telemetry. Lungs clear b/l to auscultation. RA. Heparin infusing at 1300u/hr, LR gtt as ordered. Nepro TF infusing as ordered. Ate 50% dinner w/ assistance. R nare dobhoff. L nare
large clot visible.
Preop prep #1 completed: Hair clipped per TAVR guidelines, CHG bath, complete bed change, new cuff/tele leads + patches/pulsox/gown, bed wiped down.
--- NOTE | 2025-04-05 22:58 | CON.ONC ---
Consultation
-
Date Consultation Requested: 04/04/25
Date Consultation Performed: 04/05/25
Requesting Provider: Aime Hernandez
Performing Provider: Mare Gimenez
Reason for Consultation: Thrombocytopenia
Impression
Impression
ESRD s/p failed transplant 2019
Afib on Eliquis
Urosepsis complicated by Klebsiella bacteremia and acute renal failure
Severe complicated by cardiogenic shock
New small PE on 04/04 CT chest
Acute blood loss anemia
Thrombocytopenia, multifactorial
Plan
Plan
HIT TARI negative.
Multiple contributing factors to thrombocytopenia.
We will follow peripherally, please call if further Q's.
Thank you for consult.
Patient History
History of Present Illness
79-year-old male with a past medical history of aortic stenosis, hypertension, dyslipidemia and end-stage renal disease status post renal transplant recently showing signs of rejection, permanent atrial fibrillation on Eliquis and urinary retention
initially presented with fever chills and weakness. Overall presentation was consistent with septic shock in the setting of pyelonephritis. He required aggressive resuscitation with fluids, antibiotics and vasopressors. He had been intubated for
acute hypoxic respiratory failure. He required HD for ELIZABETH but did not tolerate this hemodynamically so was transition to CRRT. Echocardiogram shows severe aortic stenosis with normal LVEF now. Anemia with a hemoglobin down to 6.3 was noted, had
undergone colonoscopy in November showing colonic angioectasia. Also felt to be in cardiogenic shock due to severe . He underwent CT chest in anticipation of TAVR on 04/04, this incidentally noted small PE despite Eliquis. Eliquis was d/c'd and pt
was started on heparin but then platelets began dropping. HIT 4T score returned intermediate at 4 so heparin was D/C'd and he was started on argatroban. We are consulted regarding possibility of HIT. HIT TARI has now returned negative.
Past-Medical/Surgical History
Past Medical History
Past Medical History: Arrhythmias, HTN, Hypercholesterolemia, Renal Failure and Valvular Disease
Social History
Tobacco: Former Smoker
Family History
Family History: Hypertension
Patient Medication
�Medication �Instructions �Recorded �Confirmed �Last Taken �Type
apixaban 5 mg tablet (Eliquis) 5 mg PO BID Blood Clot 08/11/18 03/19/25 03/11/25 History
Prevention/Tx
metoprolol tartrate 25 mg tablet 25 mg PO BID Blood Pressure 03/14/20 03/19/25 03/11/25 History
mycophenolate sodium 180 mg 720 mg PO BID Transplant 03/14/20 03/19/25 03/11/25 History
tablet,delayed release
amlodipine 5 mg tablet 5 mg PO DAILY Blood Pressure 10/04/22 03/19/25 03/12/25 History
cholecalciferol (vitamin D3) 10 10 mcg PO DAILY Supplement 10/04/22 03/19/25 03/11/25 History
mcg (400 unit) capsule (Vitamin D3)
belatacept 250 mg intravenous 450 mg IV QMONTH Transplant 07/22/23 03/19/25 03/12/25 History
solution
doxazosin 2 mg tablet 2 mg PO BID Urinary Issue 07/22/23 03/19/25 03/11/25 History
losartan 50 mg tablet 50 mg PO BID Blood Pressure 07/22/23 03/19/25 03/11/25 History
prednisone 2.5 mg tablet 2.5 mg PO BID Transplant 07/22/23 03/19/25 03/11/25 History
therapeutic multivitamin 1 tab PO DAILY Supplement 07/22/23 03/19/25 03/11/25 History
torsemide 5 mg tablet 5 mg PO SUWE Fluid 02/12/25 03/19/25 03/10/25 History
Retention/Swelling
fluticasone propionate 50 1 spray intranasal BID Allergies 03/24/25 03/24/25 Unknown History
mcg/actuation nasal
spray,suspension
sodium chloride 0.65 % nasal spray 2 spray intranasal QID Allergies 03/24/25 03/24/25 Unknown History
aerosol
Active Medications
Generic Name Dose Route Start Last Admin
Trade Name Freq PRN Reason Stop Dose Admin
Acetaminophen 650 mg 03/18/25 21:09
Acetaminophen 325 Mg Tablet PO 04/15/25 21:08
Q4HPRN PRN
PARRY/mild pain/temp > 100.4 F
Acetaminophen 650 mg 03/18/25 21:09
Acetaminophen 650 Mg Rectal Suppository RECTAL 04/15/25 21:08
Q4HPRN PRN
PARRY/ mild pain/ temp >/= 100.4F
Albuterol Sulfate 2.5 mg 04/05/25 20:38 04/05/25 21:00
Albuterol Nebs 2.5 Mg/3 Ml Ampul INH 2.5 mg
R Q4HPRN PRN Administration
Wheezing and SOB
Protocol
Artificial Tears 1 drops 03/28/25 17:17 03/29/25 11:40
Artificial Tears Pf (Refresh) 10 Drop Droperette OPHTH 04/25/25 17:16 1 drops
QIDPRN PRN Administration
Dry eyes
Aspirin 81 mg 04/03/25 08:00 04/05/25 09:10
Aspirin 81 Mg Chewable Tablet PO 05/01/25 07:59 81 mg
DAILY CECELIA Administration
Buspirone HCl 5 mg 04/05/25 17:30 04/05/25 22:09
Buspirone 5 Mg Tablet PO 05/03/25 17:29 5 mg
BID CECELIA Administration
Dextrose 12.5 grams 03/29/25 09:18
Dextrose 50% (0.5 Grams/Ml) 50 Ml Syringe IV 04/26/25 09:17
[id number] PRN
hypoglycemia
Protocol
Diazepam 2 mg 03/31/25 10:32 04/03/25 20:29
Diazepam 2 Mg Tablet PO 04/28/25 10:59 2 mg
BID PRN Administration
anxiety
Glucagon 1 mg 03/29/25 09:18
Glucagon 1 Mg Vial IM 04/26/25 09:17
PRN PRN
hypoglycemia
Protocol
Heparin Sodium 5,700 units 04/06/25 00:00
Heparin 80 Units/Kg Iv Rebolus IV 05/04/25 00:00
PRN PRN
PTT < OR = 64 seconds
Heparin Sodium 2,900 units 04/06/25 00:00
Heparin 40 Units/Kg Iv Rebolus IV 05/04/25 00:00
PRN PRN
PTT = 64.1 to 72.9 seconds
Hydromorphone HCl 0.5 mg 04/03/25 00:42 04/05/25 19:45
Hydromorphone 0.5 Mg/0.5 Ml Syringe IV 04/17/25 00:41 0.5 mg
Q4HPRN PRN Administration
moderate to severe pain
Lactated Ringer's 1,000 mls @ 75 mls/hr 04/02/25 17:00 04/05/25 22:09
Lr IV 1,000 mls
.[id number] CECELIA Administration
Cefazolin Sodium 2 grams in 10 mls @ 120 mls/hr 04/06/25 06:00
Ancef IV 04/06/25 07:04
CVOR@0600,0700 CECELIA
Heparin Sodium 25,000 units in 250 mls @ 0 mls/hr 04/05/25 17:30 04/05/25 18:05
Heparin 63179 Units/250 Ml IV 250 mls
PER PROTOCOL CECELIA Administration
Protocol
Per Protocol
Insulin Aspart 0 units 03/31/25 07:30 04/05/25 18:05
Insulin Aspart High Resistance 300 Units/3 Ml Pen.Injctr SC 04/28/25 07:29 2 units
AC CECELIA Administration
Protocol
Melatonin 5 mg 03/26/25 22:00 04/05/25 22:09
Melatonin 5 Mg Tablet PO 04/23/25 21:59 5 mg
HS CECELIA Administration
Metoprolol Tartrate 25 mg 03/18/25 21:09 04/05/25 19:25
Metoprolol 25 Mg Regular Release Tablet PO 04/15/25 21:08 25 mg
BID CECELIA Administration
Mycophenolate Mofetil 1,000 mg 03/30/25 20:00 04/05/25 19:25
Mycophenolate Susp 200 Mg/Ml In Oral Syringe PO 04/27/25 19:59 1,000 mg
BID CECELIA Administration
Polyethylene Glycol 17 grams 03/31/25 07:10 04/05/25 10:58
Polyethylene Glycol Powder 17 Grams Packet PO 04/19/25 07:59 Not Given
DAILY CECELIA
Prednisone 2.5 mg 04/05/25 08:00 04/05/25 19:25
Prednisone 2.5 Mg Tablet PO 05/03/25 07:59 2.5 mg
BID CECELIA Administration
Senna/Docusate Sodium 1 tablet 03/30/25 11:50 04/05/25 19:26
Docusate W/Senna (Caryn-Colace) Tablet PO 04/16/25 19:59 Not Given
BID CECELIA
Sodium Chloride 0 flush 03/19/25 23:00
Sodium Chloride 0.9% (Flush) Syringe IV 04/16/25 22:59
PER PROTOCOL CECELIA
Physical Exam
-
Awake, alert, ill-appearing
Labs
Lab Results
WBC 14.2 10^3/uL (4.8-10.8) H 04/05/25 03:21
RBC 2.37 10^6/uL (4.70-6.10) L 04/05/25 03:21
Hgb 7.1 g/dL (13.0-18.0) L 04/05/25 03:21
Hct 23.2 % (39.0-52.0) L 04/05/25 03:21
MCV 97.9 fL (80.0-94.0) H 04/05/25 03:21
MCH 30.0 pg (27.0-31.0) 04/05/25 03:21
MCHC 30.6 g/dL (33.0-37.0) L 04/05/25 03:21
RDW 17.7 % (11.5-14.5) H 04/05/25 03:21
Plt Count 112 10^3/uL (130-400) L 04/05/25 03:21
MPV 13.4 fL (7.4-10.4) H 04/05/25 03:21
Abs Immat Gran (auto) 1.4 10^3/uL (0-0.05) H 03/28/25 03:27
Absolute Neuts (auto) 12.1 10^3/uL (1.4-6.5) H 03/28/25 03:27
Absolute Lymphs (auto) 0.3 10^3/uL (1.2-3.4) L 03/28/25 03:27
Absolute Monos (auto) 0.8 10^3/uL (0.1-0.6) H 03/28/25 03:27
Absolute Eos (auto) 0.3 10^3/uL (0-0.7) 03/28/25 03:27
Absolute Basos (auto) 0.0 10^3/uL (0-0.2) 03/28/25 03:27
Immature Gran % 9.7 % (0-0.5) H 03/28/25 03:27
Neutrophils % 81.0 % (42.2-75.2) H 03/28/25 03:27
Lymphocytes % 1.7 % (20.5-51.1) L 03/28/25 03:27
Monocytes % 5.6 % (1.7-9.3) 03/28/25 03:27
Eosinophils % 1.7 % (0-6) 03/28/25 03:27
Basophils % 0.3 % (0-2) 03/28/25 03:27
Creatinine 2.4 mg/dL (0.7-1.3) H 04/05/25 03:21
Vital Signs
Vital Signs
Temp Pulse Resp BP Pulse Ox
97.9 F 98 19 142/70 97
04/05/25 20:33 04/05/25 22:13 04/05/25 22:13 04/05/25 22:13 04/05/25 22:47
[2025-04-06] VITALS (25 sets, daily range): BP systolic 120–170; BP diastolic 63–116; BMI 21.8
--- NOTE | 2025-04-06 00:24 | PTCARENOTE ---
TF stopped at 0000 per order in preparation for procedure in AM. No further changes in assessment.
[2025-04-06 00:54] LABS: APTT 123.7 Sec (23.4-35.0)
[2025-04-06 02:57] LABS: Hematocrit 20.6 % (39.0-52.0); Hemoglobin 6.4 g/dL (13.0-18.0); Mean Corp Hgb Conc. 31.1 g/dL (33.0-37.0); Mean Corpuscular Volume 98.1 fL (80.0-94.0); Platelet Count 106 10^3/uL (130-400); Red Cell Dist. Width 17.8 % (11.5-14.5)
[2025-04-06 03:44] LABS: Blood Urea Nitrogen 116 mg/dl (9-20); Calcium 8.1 mg/dl (8.4-10.2); Carbon Dioxide 24 mmol/L (22-30); Chloride 109 mmol/L (98-107); Estimated Creatinine Clearance 26 ml/min; Glucose 167 mg/dl (70-99); Magnesium 2.0 mg/dl (1.6-2.3); Potassium 4.3 mmol/L (3.5-5.1); Sodium 138 mmol/L (135-145); eGFR 28.18
--- NOTE | 2025-04-06 05:52 | PTCARENOTE ---
CVOR prep #2 completed. Small soft dark brown BM. Sacral foam soiled - replaced. No further changes in assessment.
--- NOTE | 2025-04-06 08:02 | W.PN.HOSP.TC ---
Today's Communication/Plan
-
receiving 2 units PRBC
NPO for TAVR
appreciate consultants
Assessment / Plan
Assessment / Plan
Assessment/Plan
79-year-old with history of end-stage renal disease status post kidney transplant 2019 on antirejection medications, hypertension, hyperlipidemia, atrial fibrillation on Eliquis, urinary retention status post catheter placement on Saturday presenting
to the emergency department with fever and chills as well as weakness, admitted for sepsis secondary to transplant pyelonephritis, acute renal failure of transplanted kidney with development of acute hypoxic respiratory failure, inability to
tolerate HD secondary to severe with plans for TAVR 04/06.
Severe aortic stenosis with cardiogenic shock
- RHC indicates aortic stenosis as source of low cardiac output/cardiogenic shock.
Cardiology recommended TAVR vs BAVR.
- Per ID, Infection is resolved, He is cleared for TAVR from ID perspective
- On 04/02/25, cardiac cath performed: it showed nonobstructive coronary artery disease in a right dominant system as described, mildly elevated (inappropriately low in setting of severe ) LV filling pressure.
Significant pullback gradient across the aortic valve in setting of known severe aortic valve stenosis. Unable to quantitatively assess degree of aortic stenosis given variable RR interval in Aflutter.
- receiving IVF
- In preparation for TAVR, stopped Eliquis and started heparin drip on 04/02/25 (was on Argatroban while HIT ruled out)
- Started ASA 81 mg daily (received ASA 325 on 04/02/25)
- s/p TAVR CT work-up
- NPO for TAVR today 04/06
Acute hypoxic respiratory failure
- likely multifactorial secondary to pulmonary edema versus pneumonia versus interstitial lung disease
-intubated 03/21-03/25
-s/p empiric high dose steroids for possible ILD, now on home prednisone
-with improvement in CXR post fluid removal with HD, may have been related to fluid; s/p RHC with PCWP 8 (post fluid removal)
-s/p antibiotic course for possible pneumonia
Septic shock associated with acute kidney injury, lactic acidosis secondary to Klebsiella bacteremia likely secondary to urinary tract infection
Transplant kidney pyelonephritis with Klebsiella and E. faecalis
Immunosuppressed
-s/p 14 days IV antibiotics (completed 04/02/25)
-s/p pressor administration, now off
Pneumomediastinum
Hydronephrosis of transplanted kidney
- Obstructive uropathy of transplant kidney, Disla placed 03/15/25
- Maintain Disla catheter for now
- Patient denies any alpha blockade but considering TURP
- Monitor I's and O's
History of renal transplant in 2019 - donor renal transplant 2019 from [facility]
Acute on chronic renal failure requiring hemodialysis
- Recent Treatment for rejection in December.
-Required hemodialysis has received multiple session, but due to poor tolerance of HD, 03/29/25, transitioned to CRRT. Line clotted, off CRRT since.
-On temporary hemodialysis catheter
-Since HD catheter had been not functioning, it was exchanged on 04/01/25 -- HD attempt on 04/01/25 resulted in tachycardia and tachypnea during HD -- if patient needs urgent dialysis CRRT will be
provided to bridge till TAVR. -Severe aortic stenosis likely limiting factor for hemodynamic instability during HD
-Cellcept resumed 03/30/25 nephrology
-On steroids Prednisone 2.5 mg BID
Pulmonary embolus within the posterior left lower lobe segmental pulmonary artery on CT Chest on 04/04/25
-Seen on CT Chest done in preparation for aortic valve surgery
-concern raised for HIT, briefly on Argatroban, now on IV heparin gtt HIT [place] Ab negative
Mild Thrombocytopenia
-HIT negative
-monitor
Bleeding around HD catheter, 04/04/25
-Appreciate Data Control Clerk. Area cleaned, ongoing bleeding noted from one of the stitches. Stitch removed, after injecting lidocaine new stitch placed at a different location. Hemostasis achieved. Appreciate black topper
Acute blood loss anemia with baseline chronic macrocytic anemia
Epistaxis and Hematuria earlier
-Was previously given IV iron infusion without improvement. Denies melena but did have epistaxis as above and also hematuria.
-Colonoscopy November ->single non-bleeding colonic angioectasia and internal hemorrhoids.
-transfuse for Hg < 7
-receiving 2 units PRBC this AM
Epistaxis
-Resolved but then came back again 04/04/25 while on Heparin Drip -- Heparin drip then resume after it resolved again -- now switched to Argatroban
-Previously evaluated by ENT, status post left NC packing. now removed. Appears deviated septum per ENT. Monitor
Left Eye Subconjunctival Hemorrhage
-Developed overnight 04/03/25-04/04/25
-Continue to monitor
Toxic metabolic encephalopathy likely secondary to shock versus ICU delirium versus hypoxemia versus uremia
-Appeared to be improving when off sedation
Atrial fibrillation with rapid ventricular response
Permanent Atrial Fibrillation
- Continue Argatroban
- Continue Metoprolol.
Hyperglycemia from Prednisone
-Continue Insulin
Diverticulosis
Sacrum Stage 2 Pressure Injury
-Wound care
DVT PPX - IV heparin gtt
Diet: Tube feeds
Code status - Full Code
55 minutes spent on patient care
Anticipated Discharge: > 48 hours
Subjective/Interval History
-
Date of Service: April 06, 2025
he is doing ok, waiting on procedure
no pain
receiving blood
Objective Data
-
Labs:
Laboratory Results
04/06/25 04/06/25 04/06/25
00:21 02:27 07:45
WBC 12.9 H
Hgb 6.4 L*
Hct 20.6 L*
Plt Count 106 L
APTT 123.7 H Pending
Sodium 138
Potassium 4.3
Chloride 109 H
Carbon Dioxide 24
BUN 116 H*
Creatinine 2.3 H
Glucose 167 H
Calcium 8.1 L
Vital Signs:
Vital Signs
Temp Pulse Resp BP Pulse Ox
97.7 F 94 18 161/83 98
04/06/25 06:36 04/06/25 06:36 04/06/25 06:36 04/06/25 06:36 04/06/25 06:12
I&O
04/05/25 04/06/25 04/07/25
06:59 06:59 06:59
Intake Total 2918.4 / 2997.4 2909 / 3076 167 / 167
Output Total 1919 / 1919 1725 / 1974 250 / 250
Balance 998.4 / 1077.4 1184 / 1101 -83 / -83
Review of Systems
-
History Source: Patient
All other systems: Reviewed and negative
Physical Exam
-
General: No Apparent Distress
HEENT: PERRLA
Respiratory: Clear to Auscultation
Cardiac: Regular Rhythm, S1/S2 and Murmur
GI: Soft and Nontender
Musculoskeletal: No Clubbing
Skin: Warm
Neuro: AO x 3
Hematologic / Lymphatic: No Lymphadenopathy
Psych: Calm
Data Reviewed
-
Diagnostic Radiology: Report Reviewed by me
Labs: Labs Reviewed by me
[2025-04-06] MEDS: CELLCEPT 1000 MG PO ×2 (08:04→20:04)
[2025-04-06] MEDS: NOVOLOG FLEXPEN-HIGH RESISTANCE SC ×2 (08:04→13:50)
[2025-04-06] MEDS: SENOKOT-S 1 TABLET PO (08:05)
[2025-04-06] MEDS: MIRALAX 17 GRAMS PO (08:05)
[2025-04-06] MEDS: DELTASONE 2.5 MG PO ×2 (08:06→20:03)
[2025-04-06] MEDS: LOPRESSOR 25 MG PO ×2 (08:06→20:03)
[2025-04-06] MEDS: LOW STRENGTH ASPIRIN 81 MG PO (08:09)
[2025-04-06] MEDS: BUSPAR 5 MG PO ×2 (08:09→20:03)
[2025-04-06 08:11] LABS: Glucose - Point of Care 117 mg/dl (70-99)
--- NOTE | 2025-04-06 08:30 | W.PN.INTV ---
Today's Communication / Plan
Recommendations
- Continue buspar given he appears depressed
- s/p TAVR today - tolerated procedure well with no immediate complications
- Continue chronic prednisone and MMF
- Defer HD/CRRT for now as he is nonoliguric; trend sCr and UOP
- Goal BG 140-180
- Continue heparin gtt (TOBIAS panel negative)
- Given acute drop of Hb overnight, recommend ENT eval to assure left nare is not bleeding (possible slow ooze)
- Guarded prognosis
Continue management in CVICU. If he remains stable by tomorrow, then recommend downgrade to IMU (assuming nephrology does not start CRRT, otherwise he should come up to ICU instead)
Assessment
-
79-year-old male with a 1 pack year smoking history, hypertension, nephrolithiasis, pulmonary nodule, atrial fibrillation, and renal transplantation on mycophenolate and prednisone with recent ultrasound showing transplant hydronephrosis presented
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
#1. Septic shock due to UTI/acute pyelonephritis, with Klebsiella bacteremia
- Off pressors now, hemodynamically stable, shock state resolved
- ID service recs appreciated - they signed off on 04/02, completed IV Unasyn on 04/02 - monitor off ABx while trending WBC and monitoring temperature curve
- Klebsiella and Enterococcus in urine culture from 03/18/2025
- Doing well off pressors
#2. Acute hypoxic respiratory failure
- Patient was intubated 03/21, extubated 03/25, and has continued to require supplemental oxygen - -> now on room air
- Keep SpO2 >90-94%
- Aspiration precautions
- Bilateral interstitial opacities, basal predominant with interseptal thickening, suggestive of pulmonary edema vs interstitial lung disease
- Patient has baseline mild reticular changes on imaging suggestive of mild fibrosis, recent CT was with significant worsening
- Patient has severe aortic stenosis, poor tolerance of HD with significant uremia, fluid overload also was in differential diagnosis
- ILD exacerbation cannot be ruled out, patient empirically started on high-dose IV steroids on 03/28, gradually weaning since, last dose of prednisone 04/04 (20mg)
- 03/30, RHC with PCWP only 8, also f/u CXR with improved interstitial opacities more suggestive of improving pulmonary edema rather than ILD
- Mild pneumomediastinum noted on imaging, suspect related to intubation and mechanical ventilation, stable on recent CT TAVR
#3. ELIZABETH with hydronephrosis of transplanted kidney - now nonoliguric; last HD session 04/01 (did not tolerate)
- Severe pyelonephritis as well as obstructive uropathy with severe hydronephrosis in the right lower quadrant transplanted kidney noted on imaging (CT A/P from 04/04/2025); [place] kidneys are severely atrophic
- s/p Disla catheter placement
- No renal recovery noted, patient has been initiated on hemodialysis (last HD session on 04/01, which he did not tolerate)
- Due to poor tolerance of HD, 03/29, transitioned to CRRT
- History of renal transplant in 2019. MMF has been resumed on 03/30 per nephrology service.
- 03/30, With low PCWP and low filling pressure, and improving CXR, patient received 1 ltr IVF
- 03/31, urine output marginally improved, creatinine continues to be high, BUN continues to climb
- 04/01, IR guided dialysis catheter exchanged in right IJ, scheduled for HD trial. [place] during dialysis, patient became tachycardic, tachypneic with respiratory distress, prematurely had to end hemodialysis followed by clinical improvement.
- Interestingly, EPO levels were 13 on 03/10/2025 (reference range: 4�27 mU/mL)
#4. Epistaxis involving left nare s/p rapid Rhino via ENT - rapid rhino removed as of 03/26
- 04/04 had another episode of self-limiting epistaxis. Currently on heparin gtt
- Given acute drop in Hb overnight (04/05 - 04/06), would be prudent to have ENT take a look again and see if he is actively bleeding from L-nare; may need rapid rhino again vs cauterization
#5. History of pulmonary nodules and baseline mild ILD
- Review of prior imaging shows mild reticular changes mostly in the posterior and basal area
- Concerning for chronic ILD versus early fibrotic changes with prior history of COVID-19
- Patient follows up with Dr. Olivarez at [facility] pulmonary clinic.
- Connective tissue disease panel negative with normal ROXANNE and rheumatoid factor levels.
- Current worsening on most recent CT chest from 03/28, which has persisted on CT TAVR from 04/04, with concern for volume overload vs ILD exacerbation (high inflammatory markers with ESR 94, CRP 269 on 03/28).
#6. Atrial fibrillation with rapid ventricular response
- Continue metoprolol as tolerated
- Eliquis on hold, currently on heparin infusion
#7. Severe with cardiogenic shock s/p right transfemoral TAVR with 26 mm Santana Resilia TAVR valve (OR date: 04/06/2025)
- RHC 03/2025, PCWP 8, CI 1.9, SVR 1526.
- 04/03, left heart cath without any significant coronary artery disease.
- Will resume heparin gtt tonight per CT surgery
#8. Bleeding around HD catheter, 04/04
- Ongoing oozing noted around HD catheter site, nonresponsive to local pressure, Surgicel placement, pressure bag application.
- Area cleaned, ongoing bleeding noted from one of the stitches. Stitch removed, after injecting lidocaine new stitch placed at a different location. Hemostasis achieved. No further ongoing bleeding noted.
#9. LLL Pulmonary embolism, 04/04, newly detected
- Patient has had interruption of anticoagulation this admission due to epistaxis
- CT on 04/04 suggestive of small left lower lobe pulmonary embolism, patient currently on room air, saturating well not on any respiratory distress
- LE duplex negative for DVT (04/05)
- Continue heparin gtt, and trend Hb and aPTT; transfuse blood products if needed to keep Hb>7-8g/dL, plt>50k (given post-operative status), and INR<1.8
#10. Thrombocytopenia
- Likely due to bone marrow suppression in setting of pyelonephritis with sepsis with possible BM suppression
- Heparin associated platelet antibody collected 04/04/2025, and is negative. Given patient's elevated 4T score (4), argatroban which had been infusing since 04/04, was stopped on 04/05, and he is now back on heparin drip
- Transfuse platelets if needed to keep >50k, as stated above
Conditions present prior to admission:
End-stage renal disease status post renal transplantation-[facility] 2018-follows at [facility]-Dr. Hines and locally Dr. Muhammad
Permanent atrial fibrillation/Eliquis.
Hypertension.
BPH.
Postherpetic neuralgia.
Chronic back pain.
Pulmonary nodule right base with negative PET followed by Dr. Olivarez
Fatty liver.
Inguinal hernia
Osteoporosis.
Hernia repair.
Cataract 2020. Transplant kidney December 2018.
DVT prophylaxis: on heparin gtt
Stress ulcer prophylaxis: N/A
FEES 03/29. on pur�ed diet
Prognosis unfortunately poor with multiorgan dysfunction-goals of care discussion reviewed on 03/23 with the patient's daughters and with Dr. Genao; they understand that he is critically ill but they would like to continue full medical
management for now and are not interested in withdrawal care. As of 03/24, given that his mental status has improved, I recommend to continue with full aggressive management considering that he is improving.
Unfortunately as of 03/25, he continues to be hypoxic and severely deconditioned after extubation. Goals of care discussion held with Dr. Genao, and the and daughter on 03/25. They would like to continue with full medical care, as the
feels that this is what Johann would have wanted. I also discussed this goals of care with the patient himself and he says to 'do what ever is needed' at this time.
The patient last saw Dr. Olivarez 03/08/2025 for ILD, restrictive lung disease and pulmonary nodule-has appointment for PFT 04/28/2025 at 3 PM [address] appointment [address] Olivarez 04/29/2025 at 11:15 AM
Continue management in CVICU. If he remains stable by tomorrow, then would recommend downgrade to IMU (assuming nephrology does not start CRRT, otherwise he should come up to ICU instead)
Office note Dr. Olivarez 03/08/2025 in regards to pulmonary nodule:
CT imaging August 2024 revealed approximately 1.3 cm nodular opacity in the right base, not present on previous exam.
Underwent a repeat CT in November 2024 Showed resolution of previously seen right basilar nodule but a new 1.4 cm nodule in the right lower lobe.
Underwent a PET scan 12/17/2024 which showed evolution of right lower lobe nodule, now presenting as large ground glass nodule measuring up to 3.9 cm. Highly suggestive of benign infectious/inflammatory process.
Repeat CT 02/2025: now demonstrate bilateral peribronchiolar ground glass infiltrate bilaterally.Unclear etiology, differential Dx includes inflammatory/infectious process vs pulmonary edema.there is evidence of small bilateral pleural effusions,
with history of aortic stenosis pulmonary edema except possibility.With ongoind immunosupresion will need to keep in my oportunistic infection.
Will obtain ILD serology, proBNP and inflmmatory markers.
Bronchoscopy with BAL may be required-if there is no evidence of volume overload.-Of note He was treated with an antibiotic and steroids middle of October 2024. He denies any active Symptoms suggesting infection.If He does produce any phlegm, we will
submit sputum culture
Diagnostic data:
CT Chest 03/28/2025- Mild pneumomediastinum, with superior extension into the fat at the base of the neck, as well as at the posterior and lateral aspect of the right mid to upper thorax.
Diffuse bilateral interstitial and groundglass opacity. This could be related to fluid associated with interstitial and pulmonary edema related to volume overload or congestive heart failure. Alternatively, findings may be infectious in nature
related to atypical or viral pneumonitis. No focal dense consolidation.
Chest x-ray 03/18/2025-severe chronic inflammatory interstitial pneumonitis
CT abdomen and pelvis 03/18/2025-severe acute edema and inflammation around right lower quadrant renal transplantation, severe hydronephrosis, severe bilateral atrophic [place] kidneys, small bilateral pleural effusions, increased coarse interstitial
markings throughout both lower lobes, right middle lobe with severe chronic inflammatory interstitial pneumonitis
ILD serology 03/10/2025-negative rheumatoid factor, ROXANNE, SSA antibodies, scleroderma antibody, proteinase [address] chest 02/23/2025 Reviewed Uriel Leong 03/08/2025 06:25:26 AM EDT >1. Resolution of previously seen right lower lobe 1.4 cm nodule.2. Mild to moderate changes of pulmonary fibrosis as seen previously.3. Superimposed upon the changes of
fibrosis, there is new large amount of bilateralperibronchovascular interstitial and groundglass opacity with small amount of bilateral upper lungairspace consolidation as detailed above. There are very small bilateral pleural effusions. Whileedema
is a differential consideration, findings are more suggestive of a superimposed infectious orinflammatory process. There is associated mild mediastinal adenopathy.-
PET CT 12/17/2024 reviewed: Uriel Leong 03/08/2025 06:25:44 AM EDT >The previously seen solid right lower lobe nodule has evolved/changed in morphology, nowpresenting as a large groundglass nodule measuring up to 3.9 cm which demonstrates
max SUV 4.7(delayed 5.4). Otherwise, no suspicious FDG avid lesions.ABDOMEN and PELVIS:No suspicious FDG-avid lesions.SKELETON:No suspicious FDG-avid lesions.This suggests inflammatory process.-
CT chest 2023: Reviewed Uriel Leong 07/05/2023 08:49:26 AM >1. No significant acute abnormality identified in the chest within the limits of unenhanced CT, asdescribed above. Probable residual fibrotic changes in the lungs, less
likely active pneumonitis.-
CT chest 02/27/2023: Reviewed Uriel Leong 03/06/2023 08:42:39 AM >There has been significant further improvement in the patient's bilateral parenchymal airspacedisease when compared with the previous examinations.Currently, there is mild
left and moderate diffuse coarsening of the interstitial markingsthroughout both lungs which at this point may be residual scarring/fibrosis rather than acute inflammatory disease.There is mild cardiomegaly. There is atherosclerosis-
CT chest 11/23/2022: showed evidence of postinflammatory fibrosis. Groundglass opacities have resolved..
Pulmonary function testing ( 07/13/2024� ):FEV1: 3.4 L-107%FVC:3.96 L-89%FEV1/FVC ratio:86%T.52 L-73%RV:44%ERV:RV/TLC ratio:23%DLCO: 13.69-50%DLCO/VA: 70%
Echo 05/19/24: Normal biventricular size and function. EF 65%. Severely dilated LA. Paradoxical low flow low gradient aortic stenosis. Mild AR.
Total time spent today was 52 minute for this encounter. Time includes reviewing laboratory tests/imaging results, reviewing pertinent medical records, obtaining and reviewing medical history, performing an appropriate physical exam, ordering
medications, tests and procedures. Time also includes documentation of this encounter, coordinating patient care and communicating with other healthcare professionals. Total time does not include separately billed tests or procedures performed on
this date of service.
Subjective Dataa
Subjective Data
Date of Service:
Date of Service: April 06, 2025
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
Subjective:
Patient seen today at bedside. Underwent TAVR procedure this morning and tolerated well with 100 cc EBL, no products needed and 26 mm Santana Resilia valve implanted. He was transfused 2 units PRBC this morning given his Hb this morning was 6.4 on
morning labs (from 7.1 yesterday).
Patient was seen postoperatively in the CVICU, and he was breathing comfortably on room air, saturating 91% with HR 87 and BP via A-line (via left radial artery) of 127/41. He feels well, although is slightly confused and slow to answer my
questions, likely effect from anesthesia. He was intubated for the procedure and extubated without issue.
Review of Systems
General: Other (Negative unless mentioned above)
Objective Data
Data Reviewed
Vital Signs / I&O / Oxygen:
Vital Signs
Temp Pulse Resp BP Pulse Ox
98.2 F 84 12 168/82 98
04/06/25 09:38 04/06/25 09:38 04/06/25 09:38 04/06/25 09:38 04/06/25 09:35
Intake and Output
04/05/25 04/06/25 04/07/25
06:59 06:59 06:59
Intake Total 2918.4 / 2997.4 2909 / 3076 591 / 591
Output Total 1919 / 1919 1725 / 1975 550 / 550
Balance 998.4 / 1077.4 1184 / 1101 41 / 41
SaO2 [ASV] 98
SaO2 [A/C] 96
SaO2 [NIV (Non Invasive 97
Ventilation)]
SaO2 98
Nasal Cannula flow liters per 2
minute
Physical Exam
General: Respiratory Distress (negative), Comfortable, Chills (negative) and Sweats (negative)
HEENT: Normocephalic, Anicteric and Other (packed gauze with dried blood seen in left nare)
Cardiovascular: Irregular Rhythm (Irregularly irregular), Murmur (negative) and Peripheral Edema (+1 lower extremity pitting edema bilaterally)
Respiratory: Wheeze (n), Crackles (Bibasilar), Rhonchi (n), Non-Labored Respirations and Stridor (n)
GI: Soft, Non Distended, Non Tender and Normal Bowel Sounds
Neurology: Awake, Tremors (negative) and Other (Somnolent, likely effect from anesthesia)
Skin: Warm, Dry, Cyanosis (n), Jaundice (n) and Rash (n)
Labs/Micro/Reports
Lab Data
04/06/25 02:27
04/06/25 02:27
Laboratory Results
04/05/25 04/06/25 04/06/25
12:01 00:21 08:21
APTT 57.0 H 123.7 H 79.6 H
[2025-04-06 08:44] LABS: APTT 79.6 Sec (23.4-35.0)
--- NOTE | 2025-04-06 09:09 | W.PN.UPDATE ---
Update Note
Progress Note Update
Discussed with the patient and his family (, daughter and son in law) regarding his risk profile and non surgical rescue. They understand that TAVR is his best option and is his rescue, heroic measures including sternotomy and surgical
intervention are not appropriate in this case given his high risk and poor prognosis. All are on board and in agreement. We will plan to move forward with TAVR valve today, 26+2 Santana Resilia.
--- NOTE | 2025-04-06 09:33 | W.PN.NEPH.PH ---
Today's Communication / Plan
-
TAVR
Assessment/Plan
-
This is a 79-year-old gentleman who follows in our office with Dr. Muhammad after donor renal transplant 2019 from [facility]. His transplant course has been complicated by development of nephrotic range proteinuria as well as recent
cellular rejection December of this year. The episodes treated with Solu-Medrol. His creatinine has risen quickly over time in the last several months. He has gone from a creatinine around 2 now up to 4.4. He was noted to have hydronephrosis of
the transplanted kidney recently on ultrasound as well as CT scan. Esteves catheter was placed by urology a few days ago. His appetite has been poor as of late. Recently he also developed fever and malaise and this has brought him to the emergency
room. He was noted to be febrile in the ER. Blood pressure was stable though lower than his home readings of 132. He was 100 systolic in the ER. Creatinine was 4.7 with elevated lactate level and elevated white count. CT of the abdomen and
pelvis were performed with suspicion for pyelonephritis of the transplant. We are asked to assist in management of his renal issues.
Assessment
Sepsis syndrome, possible pyelonephritis
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
donor renal transplant with FSGS, recent T-cell rejection
Obstructive uropathy, Esteves catheter in place
ELIZABETH..
Anemia
Hyponatremia
lactic acidosis
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
Plan
Patient failed on intermittent dialysis hemodynamically due to aortic stenosis
Conventional dialysis could not be offered for the patient
Status post left and right heart cath 04/02 reviewed (nonobstructive coronary disease)
If dialysis required we will have to initiate CRRT to bridge to TAVR
No emergent HD needed currently
continue IVF
heparin gtt per primary team
last belatacept dose was 03/12 (450mg) would be due 04/11, but will likely postpone given inpatient status
continue pred/MMF, will need stress dose steroids likely which will also cover transplant
transfuse RBC
critically care time 31 minutes
-
-
Date of Service: April 06, 2025
CC / HPI / ROS
-
Chief Complaint:
Sepsis
History of Present Illness:
ELIZABETH/Cr stable 2.3
BPs stable remains off pressors
s/p CT chest 04/05 am
BUN down to 116
Hgb lower at 6.4
on heparin gtt for PE
critically ill in ICU
Review of Systems:
non oliguric with esteves
no fever
no pain
Labs
-
Labs:
WBC 12.9 10^3/uL (4.8-10.8) H 04/06/25 02:27
RBC 2.10 10^6/uL (4.70-6.10) L 04/06/25 02:27
Hgb 6.4 g/dL (13.0-18.0) L* 04/06/25 02:27
Hct 20.6 % (39.0-52.0) L* 04/06/25 02:27
Plt Count 106 10^3/uL (130-400) L 04/06/25 02:27
Sodium 138 mmol/L (135-145) 04/06/25 02:27
Potassium 4.3 mmol/L (3.5-5.1) 04/06/25 02:27
Chloride 109 mmol/L (98-107) H 04/06/25 02:27
Carbon Dioxide 24 mmol/L (22-30) 04/06/25 02:27
BUN 116 mg/dl (9-20) H* 04/06/25 02:27
Creatinine 2.3 mg/dL (0.7-1.3) H 04/06/25 02:27
eGFR 28.18 04/06/25 02:27
Glucose 167 mg/dl (70-99) H 04/06/25 02:27
Calcium 8.1 mg/dl (8.4-10.2) L 04/06/25 02:27
Phosphorus Cancelled 03/29/25 17:00
Vlz-R-Zzisdjiirfl Pept 27855 pg/ml 03/28/25 03:28
Albumin 2.9 g/dl (3.5-5.0) L 04/04/25 15:44
Physical Exam
-
Vital Signs:
Vital Signs
Temp Pulse Resp BP Pulse Ox
98.4 F 97 18 143/78 98
04/06/25 08:00 04/06/25 08:06 04/06/25 06:36 04/06/25 08:06 04/06/25 06:12
Cardiovascular:: Regular rate and rhythm
Respiratory:: Bilateral: Coarse
Lung Excursion:: Normal
Abdomen:: Nontender and Soft
Bowel Sounds:: Normal
Extremity Edema:: +1: Bilateral:
--- NOTE | 2025-04-06 10:01 | PTCARENOTE ---
pt awake and alert, Afib / aflutter on admitting office escort rate 90s , BP 162/74 , sats 97% on room air , lungs crackles at bases , pt recieved 2nd unit of PRBC for hemoglobin of 6.4 , prior to going to OR for TAVAR , labor relations officer at bedside and report
given to receiving RNs , family at bedside , pt to go to CVICU post TAVAR
[2025-04-06 11:37] LABS: ACT-LR - POC 313 Seconds (116-155)
--- NOTE | 2025-04-06 12:41 | W.PN.CT.SURG ---
CT Surgery Operative Note
-
OPERATIVE REPORT
Preoperative Diagnosis: Severe aortic valve stenosis, symptomatic
Postoperative Diagnosis: Same
Procedure(s) Performed: R trans femoral TAVR with a 26 (+2cc additional volume) Santana TAVR valve
Date of Procedure: 04/06/2025
Comorbidities:
1. Severe aortic stenosis, symptomatic
2. Renal failure s/p DDRT
3. Acute renal failure with graft rejection
4. Atrial fibrillation
5. Hypertension
Cardiac Surgeon: Liliana Cabrera MD, MPH
Velvet Weaver: Nilesh Larios MD
Anesthesia: Conscious Sedation and Local Analgesia
EBL: 100 cc
Products: none
Implant: 26 mm (+2 cc additional volume) Resilia valve, SN: [id number]
Indication(s) for Procedures: 79-year-old male with symptomatic severe aortic stenosis, low-flow low gradient. M mmHg, SHU 0.46, low-flow low gradient with DVI 0.2 and SVI 17 mL/m�. CT-TAVR protocol revealed acceptable anatomy for TAVR access
and implantation.
Start time: 1104 hrs
Deployment time: 1145 hrs
End time: 1159 hrs
Radiation Dose (mGy): 514.65
DAP (cm2.Gy): 59.0968
Fluoroscopy time (minutes): 16.9
Contrast volume (ml): 71
TAVR gradient (mmHg): 4 mmHg
Heparin Dose: 6000 units
Protamine Dose: 40 mg
Final Valve Positionin/10
LVEPD: 14 mmHG
Findings: Preoperative LVEF was 60% and was 60% following TAVR with minimal inotropic support. Function was overall normal without regional wall motion abnormalities or dyskinesia. The aortic valve was well seated without detectable PVL and mean
gradient across the new valve was 4 mmHg. He tolerated the procedure well, had immediate decrease in support requirement which was turned off at the conclusion of the case and returned to sinus rhythm while on the film laboratory technician table. There was
successful placement of 26 mm (+2 cc additional volume) TAVR valve without acute complications.
Access:
1. Device -R LIP OF SHANK CUTTER, perclose x 2
2. Pigtail -L LIP OF SHANK CUTTER + 6Fr angioseal
3. Transvenous Pacer -L femoral vein
Description of Procedure: The patient was taken to the film laboratory technician. Their identity and procedure to be performed were verified and they were positioned supine on the film laboratory technician table. Induction via conscious sedation. The patient was then prepped and
draped from chin to thigh in a sterile fashion. A preoperative time-out was performed with all members of the team present. Arterial and venous access was performed using fluoroscopy and ultrasound guidance with micropuncture and Seldinger
technique. Two perclose devices were used on the device side followed by access to the aorta with a stiff wire to facilitate E-sheath placement. Heparin was given. A stiff straight wire and AL-1 catheter was used to cross the aortic valve. An LVEDP
was measured. The stiff wire was exchanged for an extra stiff coiled tip wire. The valve was prepped and mounted on to the device carrier. An ACT of >250 was achieved. We verified x 3 that the valve was mounted in the correct orientation with the
skirt of the valve directed toward the tip of the device carrier. We advanced the device into the descending thoracic aorta where the valve was them mounted onto the balloon under fluoroscopy. The device was flexed and advanced over the arch into
the root and positioned across the aortic valve. Contrast fluoroscopy was used to visualize the prosthesis across the valve and to guide positioning. A pigtail catheter in the RCC as used as a guide. We aimed to have the bottom of the device marker
at the annular hinge point. The device sheath was pulled back. We performed a quick pre-deployment time out. The pacer was turned on and had capture. Blood pressure fell accordingly, angiography was done to verify the intended final placement and
the valve was deployed with 5 seconds of rapid pacing to nominal volume. The balloon was deflated and the pacer was turned off. We had recovery of vitals. The device carrier was unflexed and positioned back in the descending thoracic aorta. A
transthoracic echocardiogram was performed. The device was removed from the E-Sheath maintaining wire access followed by removal of the E-sheath as we cinched down the perclose devices. There was acceptable hemostasis. The pigtail was withdrawn into
the descending/abdominal and completion aortogram with runoff run-off angiography was performed. There was no stenosis or dissection of bilateral iliofemoral systems. There was acceptable hemostasis of bilateral groins and manual pressure was held
following wire removal. Low dose protamine was administered after checking another ACT.
All instrument, sponge, and needle counts were confirmed to be correct x 2 at the end of the operation. The patient was transferred to the cardiac intensive care unit in stable condition.
I, Dr. Liliana Cabrera, was present, scrubbed for, and performed all critical elements of this procedure.
Liliana Cabrera MD, MPH
Cardiothoracic Surgeon
[facility]
This operative dictation was created using the iSpye dictation system. Please excuse any grammatical, typographical, or 'sound alike' errors
[2025-04-06 12:49] LABS: B.E. - POC -3.9 mmol/L; Glucose - POC 96 mg/dl (70-99); HCO3 - POC 23 mmol/L (21-28); Hematocrit - POC 23 % PCV (42-52); Hemodilution- POC Yes; Hemoglobin Calculated - POC 7.7; Ionized Calcium - POC 1.21 mmol/L (1.15-1.33); Lactate - POC < 0.30 mmol/L (0.36-0.75); O2 Saturation %Calculated-POC 99.8 % (94-98); PCO2 - POC 49 mmHg (35-48); PO2 - POC 271 mmHg (83-108); Potassium - POC 4.6 mmol/L (3.5-5.1); Sodium - POC 138 mmol/L (136-145); Specimen Type - POC Arterial; pH - POC 7.27 (7.35-7.45)
--- NOTE | 2025-04-06 13:20 | W.PN.UPDATE ---
Update Note
Progress Note Update
Per TYLOR Combs to resume IV heparin gtt at 7PM. I will obtain follow up Hg now.
Overnight provider to order IV heparin gtt after evaluating patient to confirm no e/o hematoma at access site.
[2025-04-06 13:50] LABS: Hematocrit 27.1 % (39.0-52.0); Hemoglobin 8.7 g/dL (13.0-18.0); Mean Corp Hgb Conc. 32.1 g/dL (33.0-37.0); Mean Corpuscular Volume 93.4 fL (80.0-94.0); Platelet Count 97 10^3/uL (130-400); Red Cell Dist. Width 19.1 % (11.5-14.5)
--- NOTE | 2025-04-06 13:58 | PTCARENOTE ---
Pt arrived from [facility] at 1230. Pt AOx4, flat affect, pupils 2, equal, reactive, moves all extremities, no complaint of pain. Afib/aflutter w/PVCs HR 80-100s, BP 140s/50s, Palpable pulses, +1 edema, ecchymotic BUE extremities, B/L sites CDI, no
bleeding, no hematoma. Dim/crackles auscultated Spo2 >92% on RA, using accessory muscles, pt reports mild SOB. Incont of bowels, small BM on arrival, chronic esteves in place, draining sarah urine. Scattered ecchymosis, stage 2 and moisture damage on
sacrum/buttocks. RIJ HD line, PIV x2, DAV midline, L rad briana. No gtt, tube feeds resumed. See flowsheets for further documentation.
--- NOTE | 2025-04-06 14:41 | ITS.CL.PN ---
Electrical Cad Technician - Procedure Note
Procedure
Procedure Note:
TRANSCATHETER AORTIC VALVE REPLACEMENT REPORT
Date of Procedure: 04/06/2025
Referring: Dr. Sigifredo Paredes MD
Indication: symptomatic severe aortic valve stenosis
Operators: Yuri Larios MD, PhD (interventional cardiology); Dr. Liliana Blanchard (CT surgery)
Anesthesia: conscious sedation provided by the anesthesia staff
PROCEDURE: transfemoral, transcatheter aortic valve replacement with a 26 mm Santana Shu 3 Ultra RESILIA (with +2 cc extra volume)
ACCESS:
1. 6F left femoral vein (closure: manual hemostasis) - Ultrasound was utilized for vascular access. The vessel was visualized under ultrasound and noted to be patent. An image of the vessel was stored permanently in the patient's medical record.
Under direct ultrasound guidance, vascular access was obtained using a modified Seldinger technique and a 6 Polish sheath was placed.
2. 6F left common femoral artery (closure: Angioseal) - Ultrasound was utilized for vascular access. The vessel was visualized under ultrasound and noted to be patent. An image of the vessel was stored permanently in the patient's medical record.
Under direct ultrasound guidance, vascular access was obtained using a modified Seldinger technique and a 6 Polish sheath was placed.
3. 14F right common femoral artery (closure: Perclose x2) - Ultrasound was utilized for vascular access. The vessel was visualized under ultrasound and noted to be patent. An image of the vessel was stored permanently in the patient's medical
record. Under direct ultrasound guidance, vascular access was obtained using a modified Seldinger technique and a 8 Polish sheath was placed.
HEMODYNAMIC DATA
LVEDP 14 mmHg
PROCEDURE NARRATIVE:
The patient was prepped and draped in standard sterile fashion. Conscious sedation was provided by the anesthesia staff. 6F left femoral vein and left common femoral artery access was obtained with ultrasound guidance using micropuncture technique
with verification of appropriate arteriotomy location via hand injection angiography. A temporary venous pacing wire was advanced via the left femoral vein to the right ventricle under fluoroscopic guidance with appropriate capture verified. A 5F
pigtail catheter was advanced via the left common femoral artery and seated in the right coronary cusp. Angiography was performed to verify the co-planar angle.
8F right common femoral artery access was obtained with ultrasound guidance using micropuncture technique with verification of appropriate arteriotomy location via hand injection angiography. The arteriotomy was preclosed with two Perclose sutures
followed by replacement of the 8F sheath. Using an AL1 catheter, an Amplatz Extrastiff wire was placed in the descending thoracic aorta. The 8F sheath was removed and the 14F Santana E-sheath was inserted over the Extrastiff wire and into the
descending aorta. Heparin was given. The AL1 catheter was re-advanced through the E-sheath to the level of the ascending aorta. The Extrastiff wire was exchanged for a soft tipped straight wire which was used to cross the aortic valve and deposit
the AL1 in the LV apex. A J-wire was used to exchange the AL1 for a pigtail catheter in the LV and LVEDP was measured. An Amplatz Extrastiff wire with curved proximal end was advanced through the pigtail catheter and seated in the LV apex. ACT was
checked and confirmed to be >300 seconds.
The valve was brought to the table with orientation and deployment contrast volume verified. The valve was advanced over the Extrastiff wire and into the descending aorta. The balloon was withdrawn, and the valve was mounted on the balloon. The
valve was advanced over the aortic arch and into the aortic valve annulus. The pusher device was withdrawn. Low volume aortography confirmed valve positioning. The valve was deployed during rapid ventricular pacing. The balloon was walked back to
the descending aorta while leaving the wire in place. The patient was resuscitated by anesthesia with recovery of adequate blood pressure. Telemetry demonstrating atrial flutter with narrow QRS. Aortography demonstrated good valve positioning,
adequate coronary filling, and no aortic valve insufficiency. Echocardiography confirmed no aortic insufficiency. Mean valve gradient was 4 mmHg. The valve deployment system was removed.
The Santana E sheath was removed, and hemostasis obtained with the two Perclose sutures. Protamine 40 mg was given. Aortoiliac angiography demonstrated no evidence of iliofemoral dissection/perforation and good runoff below the common femoral artery
bilaterally. The pacemaker and the pigtail catheter were removed. The left femoral artery sheath was removed using a 6F Angioseal. The left femoral venous sheath was removed with manual pressure.
CONCLUSION: successful placement of a 26 mm Santana Shu 3 Ultra RESILIA transcatheter aortic valve via right transfemoral approach with no acute complications
Copy to: Dr. Sigifredo Paredes MD (criminal lawyer); Dr. Neville Kam MD (PCP)
Signed: Yuri Larios MD, PhD
[2025-04-06 14:44] LABS: APTT 33.1 Sec (23.4-35.0)
--- NOTE | 2025-04-06 15:18 | W.PN.CD ---
Today's Communication / Plan
-
s/p TF TAVR
monitor Hb
re-trial iHD per renal
Impression / Plan
-
79M with prior renal transplant in 2019 presenting with septic shock and ELIZABETH now on CRRT with inability to tolerate iHD. He is status post TF TAVR 04/06/2025.
Aortic stenosis, severe:
-concern that severe is contributing to shock and failure to tolerate HD
-now s/p TF TAVR with Shu S3 Ultra 26 mm valve (Ric/Santo, 04/06/25)
ELIZABETH, hx kidney transplant with evidence for rejection, hydronephrosis with Disla:
-re-attempt iHD now that AV valve replaced
-in discussion with renal, though he still makes urine there is not a great deal of expectation for nursing home renal recovery
Acute respiratory failure:
-now extubated, minimal O2
-history of ILD, has been stable as outpatient
-CT scan 03/28/25: Mild pneumomediastinum, with superior extension into the fat at the base of the neck, as well as at the posterior and lateral aspect of the right mid to upper thorax. Diffuse bilateral interstitial and groundglass opacity. This
could be related to fluid associated with interstitial and pulmonary edema related to volume overload or congestive heart failure. Alternatively, findings may be infectious in nature related to atypical or viral pneumonitis. No focal dense
consolidation. On IV steroids. On IV abx.
-Not volume overload on cath, LVEDP 18 mmHg on 04/06 during TAVR
Septic shock, in setting of pyelonephrosis, resolved
-no longer on pressors
-ID following, s/p 2 week abx course
Permanent AFIB:
-on Eliquis, then heparin, then argatroban given cocnern for TOBIAS, will now transition back to heparin bernardo-TAVR and eventual DOAC (can resume heparin 6 hours after TAVR sheath out)
-on metoprolol, rate currently controlled- follow telemetry
-follow telemetry
Anemia:
-slowly drifting, in recent days may be due to IVF
-no clinical bleeding
-2U pRBCs before TAVR, check repeat
Data;
-Echo 03/23/25: Normal biventricular size and systolic function. Severe LFLG aortic stenosis: reported mean 39 mmHg (on a long RR interval, looks more like 30 on standard beats, but DVI 0.2 and and estimated SHU 0.46 cms), SVI 17 mL/m2. Unlikely
that anemia is causing significant overestimation of severity. Anemia may produce high gradient with borderline severe valve area that corrects with reduction in flow, but he is already in a low flow state. Severe left atrial enlargement.
Compared to echocardiogram dated 05/19/2024 the valve looks perhaps visually progressed and quantitative severity is increased.
Physical Exam
Vital Signs/Labs
Vital Signs
Temp Pulse Resp BP Pulse Ox
36.4 C 95 18 168/82 94
04/06/25 13:00 04/06/25 15:15 04/06/25 15:00 04/06/25 09:38 04/06/25 15:15
04/05/25 04/06/25 04/07/25
06:59 06:59 06:59
Actual Weight 71.7 kg 72.7 kg
04/06/25 13:36
04/06/25 02:27
PT 15.1 Sec (11.4-14.6) H 04/04/25 15:44
INR 1.16 04/04/25 15:44
APTT 33.1 Sec (23.4-35.0) 04/06/25 14:21
Magnesium 2.0 mg/dl (1.6-2.3) 04/06/25 02:27
Triglycerides 220 mg/dl (10-149) H 03/27/25 03:27
03/19/25 03/26/25 03/28/25
23:51 03:21 03:28
Ndm-S-Xigujbbuqff Pept > [id number]
Physical Exam
Constitutional: Comfortable
Cardiovascular: Rhythm/rate is irregular
Respiratory: Respiratory effort normal
Neuro/Psych: AO x 3
Data Reviewed
-
Date of Service: April 06, 2025
Medical Decision Making: Reviewed Test Results
Labs: Labs Reviewed by me
[2025-04-06] MEDS: LR IV (15:19)
--- NOTE | 2025-04-06 15:34 | CM ---
Chart reviewed. Patient in OR today. Patient is independent of ADLS, lives at home with his in a 1 STH, 2 ENOC, 0 DME. PT evaluation recommending Rehab. Referral sent to [facility], [facility], [facility], and [place].
Patient going back and forth between CRRT and HD. Patient may need HD set up as outpatient. Plan is for the patient to go to rehab with or without HD. CM to follow.
--- NOTE | 2025-04-06 15:47 | CM ---
TAVR today. Transferred to Room 2266. Discharge POC: Rec for SNF. Previous referrals were for SNF's with HD. No longer on HD. Will need to get additional preferences closer to discharge after TAVR.
[2025-04-06 16:33] LABS: Glucose - Point of Care 142 mg/dl (70-99)
[2025-04-06] MEDS: NOVOLOG FLEXPEN-HIGH RESISTANCE 1 UNITS SC (16:37)
--- NOTE | 2025-04-06 16:39 | PTCARENOTE ---
Pt reassessment unchanged. Afib HR 70-90, VSS, NV and neuro checks unchanged. Loose BM, incont of bowels. Cont bedrest until 1809.
[2025-04-06] MEDS: DILAUDID 0.5 MG IV ×2 (16:51→23:07)
[2025-04-06] MEDS: ANCEF 10 IV ×2 (17:22)
[2025-04-06] MEDS: ANCEF 5 IV (18:22)
[2025-04-06] MEDS: HEPARIN 25000 UNITS/250 ML IV (19:00)
--- NOTE | 2025-04-06 20:00 | PTCARENOTE ---
Assumed care of patient at 1900. Patient found resting in bed at time of assessment. Patient is AOx4, follows commands appropriately, moves all extremities. Patient is CHEVAK. Lung sounds have some fine crackles in the bases, saO2 95% on RA, patient
has infrequent nonproductive cough. Heart sounds are audible, patient has irregular apical rate, patient is afib/flutter on the monitor. Patient has normal palpable pulses, +2BUE and +1 BLE edema observed. Patient has R nare dobhoff receiving TF
nepro@20 in addition patient is on DYS4 diet with mod thick liquids. Patient has esteves catheter draining dark sarah urine. Patient has L arm puncture with 4x4 CDI, bilateral groin punctures with 4x4 CDI, MASD buttocks, and 2xStage II pressure ulcers
on sacrum and coccyx with foam dressing CDI. Patient has R IJ HD cath, R arm midline receiving heparin gtt@1200 units/hr. Patient also mckee R/L FA PIV and L radial briana. Call tao within reach.
[2025-04-06] MEDS: MELATONIN 5 MG PO (21:48)
[2025-04-06 23:06] LABS: Glucose - Point of Care 205 mg/dl (70-99)
[2025-04-07] VITALS (24 sets, daily range): BP systolic 111–148; BP diastolic 43–69; BMI 22.1
--- NOTE | 2025-04-07 | PTCARENOTE ---
Patient reassessed. Incontinent of bowel hygiene care provided. C/o pain treated with 0.5 dilaudid. Call tao within reach. Honey thick liquids provided.
[2025-04-07 01:22] LABS: APTT 80.6 Sec (23.4-35.0)
[2025-04-07] MEDS: DESENEX/MITRAZOL/ZEASORB 1 APPLIC TOPICAL ×3 (02:31→19:48)
--- NOTE | 2025-04-07 03:31 | W.PN.CT ---
Today's Communication / Plan
-
Plan:
-No major issues overnight. Hemodynamically and neurologically intact
-Groins C/D/I without significant hematoma
-Repeat echo today
-Cont. ASA and heparin gtt, eventual resumption of Eliquis
-Cont. esteves catheter, 24hr u/o 2500 mL
-OOB as tolerated
Assessment / Plan
-
Assessment:
S/P R trans femoral TAVR with a 26 (+2cc additional volume) Santana TAVR valve, by Dr. Cabrera/Ric, 04/06/25, pod#1
-Severe
-Cardiogenic shock
-Septic shock, in setting of pyelonephrosis, resolved
-End-stage renal disease S/p diseased donor renal transplantation-[facility] 2019-follows at [facility]-Dr. Hines and locally Dr. Muhammad S/P intolerant of HD recently
-ELIZABETH
-Acute respiratory failure S/p VDRF
-Permanent atrial fibrillation/Eliquis
-Hypertension
-BPH
-Postherpetic neuralgia
-Chronic back pain
-Pulmonary nodule right base with negative PET followed by Dr. Olivarez
-LLL embolism, 04/04/25
-Fatty liver
-Inguinal hernia
-Osteoporosis
-Preop Anemia S/p 2u PRBCs
-Preop Thrombocytopenia
-L nare epistaxis S/P rapid rhino, 03/26/24
-S/p inguinal Hernia repair
-S/p Cataract 2020
Discussed patient care with: Cardiology, Nursing, Respiratory Therapy, Pharmacy and Care Team
Subjective
Procedure
R trans femoral TAVR with a 26 (+2cc additional volume) Santana TAVR valve, by Dr. Cabrera/Ric, 04/06/25
-
Date of Service: April 07, 2025
Pt offers no complaints
Objective Data
-
PT 15.1 Sec (11.4-14.6) H 04/04/25 15:44
INR 1.16 04/04/25 15:44
APTT 80.6 Sec (23.4-35.0) H 04/07/25 01:04
Vital Signs
Vital Signs
Temp Pulse Resp BP Pulse Ox
98.5 F 90 17 168/82 95
04/06/25 23:00 04/07/25 02:30 04/07/25 02:30 04/06/25 09:38 04/07/25 02:30
CT Intake/Output/Weight
04/06/25 04/06/25 04/07/25
06:59 18:59 06:59
Intake Total 1636 / 3076 671 / 763 92 / 763
Output Total 87 / 1974 1550 / 0 540 / 2090
Balance 761 / 1101 -879 / -1327 -448 / -1327
SaO2: 95 (RA)
Physical Exam
-
General: Awake, Oriented and AOx3
Cardiovascular: Irregular rate & rhythm (a-fib), No Murmurs, No Rub and No Gallop
Respiratory: Decreased Breath Sounds (at bases)
Sternum: Stable
Incision: Clean, Dry, Intact and Dressing Intact
Extremities: Edema +2 (RLE)
Data Reviewed
-
Lab Results: Results Reviewed
Medications: Active Meds Reviewed
Chest X-Ray: Report Reviewed and Image Reviewed
ECG: Report Reviewed and Image Reviewed
[2025-04-07 03:53] LABS: Hematocrit 27.0 % (39.0-52.0); Hemoglobin 8.9 g/dL (13.0-18.0); Mean Corp Hgb Conc. 33.0 g/dL (33.0-37.0); Mean Corpuscular Volume 92.5 fL (80.0-94.0); Platelet Count 87 10^3/uL (130-400); Red Cell Dist. Width 19.6 % (11.5-14.5)
[2025-04-07 04:15] LABS: Blood Urea Nitrogen 103 mg/dl (9-20); Calcium 8.3 mg/dl (8.4-10.2); Carbon Dioxide 24 mmol/L (22-30); Chloride 112 mmol/L (98-107); Estimated Creatinine Clearance 29 ml/min; Glucose 120 mg/dl (70-99); Magnesium 1.9 mg/dl (1.6-2.3); Potassium 4.6 mmol/L (3.5-5.1); Sodium 140 mmol/L (135-145); eGFR 31.43
--- NOTE | 2025-04-07 06:08 | PTCARENOTE ---
Patient reassessed. Incontinent of bowel hygiene care provided. C/o pain treated with 0.5 dilaudid. Call tao within reach. Honey thick liquids provided.
--- NOTE | 2025-04-07 06:11 | PTCARENOTE ---
Patient reassessed. AM labs obtained. AM EKG obtained. Weight obtained. Additional hygiene care provided.
[2025-04-07] MEDS: DILAUDID 0.5 MG IV ×2 (06:25→13:52)
[2025-04-07 07:06] LABS: APTT 92.7 Sec (23.4-35.0)
--- NOTE | 2025-04-07 07:38 | W.PN.HOSP.TC ---
Today's Communication/Plan
-
see plan
Assessment / Plan
Assessment / Plan
Assessment/Plan
79-year-old with history of end-stage renal disease status post kidney transplant 2019 on antirejection medications, hypertension, hyperlipidemia, atrial fibrillation on Eliquis, urinary retention status post catheter placement several days prior to
admission presenting to the emergency department with fever and chills as well as weakness, admitted for sepsis secondary to transplant pyelonephritis, acute renal failure of transplanted kidney with development of acute hypoxic respiratory failure,
inability to tolerate HD secondary to severe and now s/p TAVR 04/06.
Severe aortic stenosis with cardiogenic shock
- RHC 03/30 indicates aortic stenosis as source of low cardiac output/cardiogenic shock.
- s/p cardiac cath 04/02/25 - non-obstructive CAD
- decision made for more urgent TAVR in hopes of tolerating HD (see below)
- s/p TAVR CT work-up with incidental finding of PE (see below)
- he is s/p TAVR on 04/06 admitted to CVICU overnight
- continue ASA 81 mg daily (received ASA 325 on 04/02/25)
- appreciate CTS, Consulting Sme, Cardiology
History of renal transplant in 2019 - donor renal transplant 2019 from [facility]
Acute on chronic renal failure requiring hemodialysis
-Recent Treatment for rejection in December.
-Cellcept resumed 03/30/25 nephrology
-On steroids Prednisone 2.5 mg BID
-Required hemodialysis on admission, received multiple session, but due to poor tolerance of HD, 03/29/25, transitioned to CRRT. Line clotted, off CRRT since.
-On temporary hemodialysis catheter
-HD attempt on 04/01/25 resulted in tachycardia and tachypnea during HD, Severe aortic stenosis likely limiting factor for hemodynamic instability during HD
-follow up Renal recs and timing of HD post TAVR
Acute hypoxic respiratory failure requiring intubation 03/21-03/25
- likely multifactorial secondary to pulmonary edema versus pneumonia versus interstitial lung disease
-s/p empiric high dose steroids for possible ILD, now on home prednisone
-with improvement in CXR post fluid removal with HD, may have been related to fluid; s/p RHC with PCWP 8 (post fluid removal)
-s/p antibiotic course for possible pneumonia
- respiratory status now stable on RA
Septic shock associated with acute kidney injury, lactic acidosis secondary to Klebsiella bacteremia likely secondary to urinary tract infection
Transplant kidney pyelonephritis with Klebsiella and E. faecalis
Immunosuppressed
-s/p 14 days IV antibiotics (completed 04/02/25)
-s/p pressor administration, now off
Pneumomediastinum
Hydronephrosis of transplanted kidney
- Obstructive uropathy of transplant kidney, Disla placed 03/15/25
- Maintain Disla catheter
- Patient denies any alpha blockade but considering TURP
Pulmonary embolus within the posterior left lower lobe segmental pulmonary artery on CT Chest on 04/04/25
-Seen on CT Chest done in preparation for aortic valve surgery
-concern raised for HIT, briefly on Argatroban, now on IV heparin gtt HIT [place] Ab negative
Mild Thrombocytopenia
-HIT negative
-monitor
Bleeding around HD catheter, 04/04/25
-Appreciate Consulting Sme. Area cleaned, ongoing bleeding noted from one of the stitches. Stitch removed, after injecting lidocaine new stitch placed at a different location. Hemostasis achieved. 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
Acute blood loss anemia with baseline chronic macrocytic anemia
Epistaxis and Hematuria
-transfuse for Hg < 7
-s/p 2 units PRBC morning 04/06 with appropriate response
Epistaxis
-Previously evaluated by ENT, status post left NC packing. now removed. Appears deviated septum per ENT.
-s/p topical bacitracin course
-gentle nasal saline sprays in b/l nasal cavities 1-2 sprays each nostril 3-4 times daily per ENT
-recall ENT if rebleeding occurs
Left Eye Subconjunctival Hemorrhage
-Developed overnight 04/03/25-04/04/25
-Continue to monitor
Toxic metabolic encephalopathy likely secondary to shock versus ICU delirium versus hypoxemia versus uremia
-Appeared to be improving when off sedation
Atrial fibrillation with rapid ventricular response
Permanent Atrial Fibrillation
-IV Heparin gtt
- Continue Metoprolol.
Hyperglycemia from Prednisone
-Continue Insulin
Diverticulosis
Sacrum Stage 2 Pressure Injury
-Wound care
DVT PPX - IV heparin gtt
Diet: Tube feeds
Code status - Full Code
55 minutes spent on patient care
Anticipated Discharge: > 48 hours
Subjective/Interval History
-
Date of Service: April 07, 2025
he is resting comfortably
Objective Data
-
Labs:
Laboratory Results
04/07/25 04/07/25 04/07/25
01:04 02:42 06:37
WBC 16.9 H
Hgb 8.9 L
Hct 27.0 L
Plt Count 87 L
APTT 80.6 H 92.7 H
Sodium 140
Potassium 4.6
Chloride 112 H
Carbon Dioxide 24
BUN 103 H*
Creatinine 2.1 H
Glucose 120 H
Calcium 8.3 L
Vital Signs:
Vital Signs
Temp Pulse Resp BP Pulse Ox
98.0 F 84 18 148/62 92
04/07/25 04:00 04/07/25 06:00 04/07/25 06:00 04/07/25 05:52 04/07/25 06:00
I&O
04/06/25 04/07/25 04/08/25
06:59 06:59 06:59
Intake Total 2909 / 3076 1423 / 1423
Output Total 172 / 1974 2540 / 2540
Balance 1184 / 1101 -1117 / -1117
Review of Systems
-
History Source: Patient
All other systems: Reviewed and negative
Physical Exam
-
General: No Apparent Distress
HEENT: PERRLA and Other (dobhoff in right nare; dried blood in left nare )
Respiratory: Clear to Auscultation
Cardiac: Regular Rhythm, S1/S2 and Murmur
GI: Soft and Nontender
Musculoskeletal: No Clubbing
Skin: Warm
Neuro: AO x 3
Hematologic / Lymphatic: No Lymphadenopathy
Psych: Calm
Data Reviewed
-
Diagnostic Radiology: Report Reviewed by me
Labs: Labs Reviewed by me
--- NOTE | 2025-04-07 08:28 | W.PN.INTV ---
Today's Communication / Plan
Recommendations
- Continue buspar given he appears depressed
- s/p TAVR on 04/06 - tolerated procedure well with no immediate complications
- Continue chronic prednisone and MMF
- Defer HD/CRRT for now as he is nonoliguric; trend sCr and UOP; currently no need for HD, per nephro
- Goal BG 140-180
- Continue heparin gtt (TOBIAS panel negative)
- Monitor Hb and if concern develops for continued nose bleed then would have ENT see pt again
Patient is stable for downgrade out of ICU to IMU. Pulmonary service will continue to briefly follow along.
Assessment
-
79-year-old male with a 1 pack year smoking history, hypertension, nephrolithiasis, pulmonary nodule, atrial fibrillation, and renal transplantation on mycophenolate and prednisone with recent ultrasound showing transplant hydronephrosis presented
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
#1. Septic shock due to UTI/acute pyelonephritis, with Klebsiella bacteremia
- Off pressors now, hemodynamically stable, shock state resolved
- ID service recs appreciated - they signed off on 04/02, completed IV Unasyn on 04/02 - monitor off ABx while trending WBC and monitoring temperature curve
- Klebsiella and Enterococcus in urine culture from 03/18/2025
- Doing well off pressors
#2. Acute hypoxic respiratory failure
- Patient was intubated 03/21, extubated 03/25, and continued to require supplemental oxygen however he has markedly improved, and has been on room air for few days now
- Keep SpO2 >90-94%
- Aspiration precautions
- Bilateral interstitial opacities, basal predominant with interseptal thickening, suggestive of pulmonary edema vs interstitial lung disease
- Patient has baseline mild reticular changes on imaging suggestive of mild fibrosis, recent CT was with significant worsening
- Patient has severe aortic stenosis, poor tolerance of HD with significant uremia, fluid overload also was in differential diagnosis
- ILD exacerbation cannot be ruled out, patient empirically started on high-dose IV steroids on 03/28, gradually weaning since, last dose of prednisone 04/04 (20mg)
- 03/30, RHC with PCWP only 8, also f/u CXR with improved interstitial opacities more suggestive of improving pulmonary edema rather than ILD
- Mild pneumomediastinum noted on imaging, suspect related to intubation and mechanical ventilation, stable on recent CT TAVR
#3. ELIZABETH with hydronephrosis of transplanted kidney - now nonoliguric; last HD session 04/01 (did not tolerate)
- Severe pyelonephritis as well as obstructive uropathy with severe hydronephrosis in the right lower quadrant transplanted kidney noted on imaging (CT A/P from 04/04/2025); [place]og[place] kidneys are severely atrophic
- s/p Disla catheter placement
- Patient had been initiated on hemodialysis (last HD session on 04/01, which he did not tolerate)
- Due to poor tolerance of HD, 03/29, transitioned to CRRT
- History of renal transplant in 2019. MMF has been resumed on 03/30 per nephrology service; now patient to start belatacept on 04/09, per nephrology
- 03/30, With low PCWP and low filling pressure, and improving CXR, patient received 1 ltr IVF
- 03/31, urine output marginally improved, creatinine continues to be high, BUN continues to climb
- 04/01, IR guided dialysis catheter exchanged in right IJ, scheduled for HD trial. [place] during dialysis, patient became tachycardic, tachypneic with respiratory distress, prematurely had to end hemodialysis followed by clinical improvement.
- Interestingly, EPO levels were 13 on 03/10/2025 (reference range: 4�27 mU/mL)
- Nephro to hold off on HD as of 04/07, as he remains nonoliguric and sCr is improving
#4. Epistaxis involving left nare s/p rapid Rhino via ENT - rapid rhino removed as of 03/26
- 04/04 had another episode of self-limiting epistaxis. Currently on heparin gtt
- If there are additional drops in Hb with concern for continued nose bleed, then would contact ENT to re-eval the pt as he may need rapid rhino again vs cauterization of his left nare
#5. History of pulmonary nodules and baseline mild ILD
- Review of prior imaging shows mild reticular changes mostly in the posterior and basal area
- Concerning for chronic ILD versus early fibrotic changes with prior history of COVID-19
- Patient follows up with Dr. Olivarez at [facility] pulmonary clinic.
- Connective tissue disease panel negative with normal ROXANNE and rheumatoid factor levels.
- Current worsening on most recent CT chest from 03/28, which has persisted on CT TAVR from 04/04, with concern for volume overload vs ILD exacerbation (high inflammatory markers with ESR 94, CRP 269 on 03/28).
#6. Atrial fibrillation with rapid ventricular response
- Continue metoprolol as tolerated
- Eliquis on hold, currently on heparin infusion
#7. Severe with cardiogenic shock s/p right transfemoral TAVR with 26 mm Santana Resilia TAVR valve (OR date: 04/06/2025)
- RHC 03/2025, PCWP 8, CI 1.9, SVR 1526.
- 04/03, left heart cath without any significant coronary artery disease.
- Now back on heparin gtt
#8. Bleeding around HD catheter, 04/04
- Ongoing oozing noted around HD catheter site, nonresponsive to local pressure, Surgicel placement, pressure bag application.
- Area cleaned, ongoing bleeding noted from one of the stitches. Stitch removed, after injecting lidocaine new stitch placed at a different location. Hemostasis achieved. No further ongoing bleeding noted.
#9. LLL Pulmonary embolism, 04/04, newly detected
- Patient has had interruption of anticoagulation this admission due to epistaxis
- CT on 04/04 suggestive of small left lower lobe pulmonary embolism, patient currently on room air, saturating well not on any respiratory distress
- LE duplex negative for DVT (04/05)
- Continue heparin gtt, and trend Hb and aPTT; transfuse blood products if needed to keep Hb>7-8g/dL, plt>50k (given post-operative status), and INR<1.8
#10. Thrombocytopenia
- Likely due to bone marrow suppression in setting of pyelonephritis with sepsis with possible BM suppression
- Heparin associated platelet antibody collected 04/04/2025, and is negative. Given patient's elevated 4T score (4), argatroban which had been infusing since 04/04, was stopped on 04/05, and he is now back on heparin drip
- Transfuse platelets if needed to keep >50k, as stated above
Conditions present prior to admission:
End-stage renal disease status post renal transplantation-[facility] 2018-follows at [facility]-Dr. Hines and locally Dr. Muhammad
Permanent atrial fibrillation/Eliquis.
Hypertension.
BPH.
Postherpetic neuralgia.
Chronic back pain.
Pulmonary nodule right base with negative PET followed by Dr. Olivarez
Fatty liver.
Inguinal hernia
Osteoporosis.
Hernia repair.
Cataract 2020. Transplant kidney December 2018.
DVT prophylaxis: on heparin gtt
Stress ulcer prophylaxis: N/A
FEES 03/29. on pur�ed diet
Previous [facility] discussions: Prognosis unfortunately poor with multiorgan dysfunction-goals of care discussion reviewed on 03/23 with the patient's daughters and with Dr. Genao; they understand that he is critically ill but they would like to
continue full medical management for now and are not interested in withdrawal care. As of 03/24, given that his mental status has improved, I recommend to continue with full aggressive management considering that he is improving. Unfortunately as
of 03/25, he continues to be hypoxic and severely deconditioned after extubation. Goals of care discussion held with Dr. Genao, and the and daughter on 03/25. They would like to continue with full medical care, as the feels that this
is what Johann would have wanted. I also discussed this goals of care with the patient himself and he says to 'do what ever is needed' at this time.
The patient last saw Dr. Olivarez 03/08/2025 for ILD, restrictive lung disease and pulmonary nodule-has appointment for PFT 04/28/2025 at [address] appointment [address] Olivarez 04/29/2025 at 11:15 AM
Patient is stable for downgrade out of ICU to IMU. Pulmonary service will continue to briefly follow along.
Office note Dr. Olivarez 03/08/2025 in regards to pulmonary nodule:
CT imaging August 2024 revealed approximately 1.3 cm nodular opacity in the right base, not present on previous exam.
Underwent a repeat CT in November 2024 Showed resolution of previously seen right basilar nodule but a new 1.4 cm nodule in the right lower lobe.
Underwent a PET scan 12/17/2024 which showed evolution of right lower lobe nodule, now presenting as large ground glass nodule measuring up to 3.9 cm. Highly suggestive of benign infectious/inflammatory process.
Repeat CT 02/2025: now demonstrate bilateral peribronchiolar ground glass infiltrate bilaterally.Unclear etiology, differential Dx includes inflammatory/infectious process vs pulmonary edema.there is evidence of small bilateral pleural effusions,
with history of aortic stenosis pulmonary edema except possibility.With ongoind immunosupresion will need to keep in my oportunistic infection.
Will obtain ILD serology, proBNP and inflmmatory markers.
Bronchoscopy with BAL may be required-if there is no evidence of volume overload.-Of note He was treated with an antibiotic and steroids middle of October 2024. He denies any active Symptoms suggesting infection.If He does produce any phlegm, we will
submit sputum culture
Diagnostic data:
CT Chest 03/28/2025- Mild pneumomediastinum, with superior extension into the fat at the base of the neck, as well as at the posterior and lateral aspect of the right mid to upper thorax.
Diffuse bilateral interstitial and groundglass opacity. This could be related to fluid associated with interstitial and pulmonary edema related to volume overload or congestive heart failure. Alternatively, findings may be infectious in nature
related to atypical or viral pneumonitis. No focal dense consolidation.
Chest x-ray 03/18/2025-severe chronic inflammatory interstitial pneumonitis
CT abdomen and pelvis 03/18/2025-severe acute edema and inflammation around right lower quadrant renal transplantation, severe hydronephrosis, severe bilateral atrophic [place]ee kidneys, small bilateral pleural effusions, increased coarse interstitial
markings throughout both lower lobes, right middle lobe with severe chronic inflammatory interstitial pneumonitis
ILD serology 03/10/2025-negative rheumatoid factor, ROXANNE, SSA antibodies, scleroderma antibody, proteinase [address] chest 02/23/2025 Reviewed Uriel Leong 03/08/2025 06:25:26 AM EDT >1. Resolution of previously seen right lower lobe 1.4 cm nodule.2. Mild to moderate changes of pulmonary fibrosis as seen previously.3. Superimposed upon the changes of
fibrosis, there is new large amount of bilateralperibronchovascular interstitial and groundglass opacity with small amount of bilateral upper lungairspace consolidation as detailed above. There are very small bilateral pleural effusions. Whileedema
is a differential consideration, findings are more suggestive of a superimposed infectious orinflammatory process. There is associated mild mediastinal adenopathy.-
PET CT 12/17/2024 reviewed: Uriel Leong 03/08/2025 06:25:44 AM EDT >The previously seen solid right lower lobe nodule has evolved/changed in morphology, nowpresenting as a large groundglass nodule measuring up to 3.9 cm which demonstrates
max SUV 4.7(delayed 5.4). Otherwise, no suspicious FDG avid lesions.ABDOMEN and PELVIS:No suspicious FDG-avid lesions.SKELETON:No suspicious FDG-avid lesions.This suggests inflammatory process.-
CT chest 2023: Reviewed Uriel Leong 07/05/2023 08:49:26 AM >1. No significant acute abnormality identified in the chest within the limits of unenhanced CT, asdescribed above. Probable residual fibrotic changes in the lungs, less
likely active pneumonitis.-
CT chest 02/27/2023: Reviewed Uriel Leong 03/06/2023 08:42:39 AM >There has been significant further improvement in the patient's bilateral parenchymal airspacedisease when compared with the previous examinations.Currently, there is mild
left and moderate diffuse coarsening of the interstitial markingsthroughout both lungs which at this point may be residual scarring/fibrosis rather than acute inflammatory disease.There is mild cardiomegaly. There is atherosclerosis-
CT chest 11/23/2022: showed evidence of postinflammatory fibrosis. Groundglass opacities have resolved..
Pulmonary function testing ( 07/13/2024� ):FEV1: 3.4 L-107%FVC:3.96 L-89%FEV1/FVC ratio:86%T.52 L-73%RV:44%ERV:RV/TLC ratio:23%DLCO: 13.69-50%DLCO/VA: 70%
Echo 05/19/24: Normal biventricular size and function. EF 65%. Severely dilated LA. Paradoxical low flow low gradient aortic stenosis. Mild AR.
Total time spent today was 38 minute for this encounter. Time includes reviewing laboratory tests/imaging results, reviewing pertinent medical records, obtaining and reviewing medical history, performing an appropriate physical exam, ordering
medications, tests and procedures. Time also includes documentation of this encounter, coordinating patient care and communicating with other healthcare professionals. Total time does not include separately billed tests or procedures performed on
this date of service.
Subjective Dataa
Subjective Data
Date of Service:
Date of Service: April 07, 2025
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
Subjective:
Patient seen this morning. Afebrile overnight. Has some chest discomfort which was improved with Dilaudid. No diaphoresis, neck pain or shoulder pain associated with this chest discomfort. It also occurred after he was coughing. Current heart
rate 94 and BP 116/48, and he is saturating 96% on room air. Patient's at bedside and all questions were answered.
Review of Systems
General: Other (Negative unless mentioned above)
Objective Data
Data Reviewed
Vital Signs / I&O / Oxygen:
Vital Signs
Temp Pulse Resp BP Pulse Ox
97.7 F 85 19 139/66 95
04/07/25 08:00 04/07/25 10:00 04/07/25 10:00 04/07/25 09:00 04/07/25 09:00
Intake and Output
04/06/25 04/07/25 04/08/25
06:59 06:59 06:59
Intake Total 2909 / 3076 1423 / 1455 76 / 76
Output Total 1725 / 1975 2540 / 2640 275 / 275
Balance 1184 / 1101 -1117 / -1185 -199 / -199
SaO2 [ASV] 98
SaO2 [A/C] 96
SaO2 [NIV (Non Invasive 97
Ventilation)]
SaO2 95
Nasal Cannula flow liters per 2
minute
Physical Exam
General: Respiratory Distress (negative), Comfortable, Chills (negative) and Sweats (negative)
HEENT: Normocephalic, Anicteric and Other (packed gauze with dried blood seen in left nare)
Cardiovascular: Irregular Rhythm (Irregularly irregular), Murmur (negative) and Peripheral Edema (+1 lower extremity pitting edema bilaterally)
Respiratory: Wheeze (n), Crackles (Bibasilar), Rhonchi (n), Non-Labored Respirations and Stridor (n)
GI: Soft, Non Distended, Non Tender and Normal Bowel Sounds
Neurology: Awake, Alert, Oriented and Tremors (negative)
Skin: Warm, Dry, Cyanosis (n), Jaundice (n) and Rash (n)
Labs/Micro/Reports
Lab Data
04/07/25 02:42
04/07/25 02:42
Laboratory Results
04/06/25 04/07/25 04/07/25
14:21 01:04 06:37
APTT 33.1 80.6 H 92.7 H
--- NOTE | 2025-04-07 08:34 | PTCARENOTE ---
Assumed care of patient at 0700. Pt is drowsy but able to arouse. Pt remains Afib with HR 89. BP 125/63 MAP 82. Pulse oximetry 93% on room air. Right nare Dobbhoff remains in place at 66cm, receiving Nepro at 20ml/hr per order. Left nare remains
with large clot present. Disla catheter remains in place draining yellow urine, Disla care completed. Bilateral groin puncture dressings intact. Pedal pulses weakly palpable. RUE midline in place with Heparin at 1200units/hr. Right IJ HD cath in
place. Left radial [place] intact. ECHO completed at bedside.
[2025-04-07] MEDS: LOPRESSOR 25 MG PO ×2 (08:40→19:47)
[2025-04-07] MEDS: BUSPAR 5 MG PO ×2 (08:41→19:46)
[2025-04-07] MEDS: LOW STRENGTH ASPIRIN 81 MG PO (08:41)
[2025-04-07] MEDS: DELTASONE 2.5 MG PO ×2 (08:41→19:46)
[2025-04-07] MEDS: OCEAN, SALINE MIST 1 SPRAYS NASAL ×3 (08:42→21:08)
[2025-04-07] MEDS: NOVOLOG FLEXPEN-HIGH RESISTANCE SC (08:50)
[2025-04-07 08:51] LABS: Glucose - Point of Care 133 mg/dl (70-99)
[2025-04-07] MEDS: CELLCEPT 1000 MG PO ×2 (08:54→20:32)
--- NOTE | 2025-04-07 09:30 | W.PN.ANS.POP ---
Anesthesia Post Operative
- Anesthesia Post Op Note
Vital Signs Stable-See Nursing Note: Yes
Airway Patent: Yes
Adequate Pain Control: Yes
Change in Mental Status: No
Current Postoperative Nausea & Vomiting: No
Anesthesia Complications: No
General Anesthetic Recall: No
Unplanned Admission: No
Post Op Hydration Adequate: Yes
--- NOTE | 2025-04-07 09:32 | W.PN.NEPH.PH ---
Today's Communication / Plan
-
Creatinine remained stable at 2.2 and grossly nonoliguric
No dialysis required
Hemodynamically stable
Assessment/Plan
-
This is a 79-year-old gentleman who follows in our office with Dr. Muhammad after donor renal transplant 2019 from [facility]. His transplant course has been complicated by development of nephrotic range proteinuria as well as recent
cellular rejection December of this year. The episodes treated with Solu-Medrol. His creatinine has risen quickly over time in the last several months. He has gone from a creatinine around 2 now up to 4.4. He was noted to have hydronephrosis of
the transplanted kidney recently on ultrasound as well as CT scan. Esteves catheter was placed by urology a few days ago. His appetite has been poor as of late. Recently he also developed fever and malaise and this has brought him to the emergency
room. He was noted to be febrile in the ER. Blood pressure was stable though lower than his home readings of 132. He was 100 systolic in the ER. Creatinine was 4.7 with elevated lactate level and elevated white count. CT of the abdomen and
pelvis were performed with suspicion for pyelonephritis of the transplant. We are asked to assist in management of his renal issues.
Assessment
Sepsis syndrome, possible pyelonephritis
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
donor renal transplant with FSGS, recent T-cell rejection
Obstructive uropathy, Esteves catheter in place
ELIZABETH..
Anemia
Hyponatremia
lactic acidosis
[employer]-He had been making outpatient arrangements for eventual ESRD and transplant evaluation at [facility]/previously on peritoneal dialysis prior to transfer
Plan
Patient failed on intermittent dialysis hemodynamically due to aortic stenosis
Conventional dialysis could not be offered for the patient
Status post left and right heart cath 04/02 reviewed (nonobstructive coronary disease)
If dialysis required we will have to initiate CRRT to bridge to TAVR
Status post TAVR 04/06/2025
No emergent HD needed currently, his creatinine remains stable at 2.1 and he is grossly nonoliguric
He is still within 48-hour contrast window
If his creatinine remains stable tomorrow I believe we will be able to discontinue his HD catheter
heparin gtt per primary team
last belatacept dose was 03/12 (450mg) would be due 04/11, but will likely postpone given inpatient status
continue pred/MMF, will need stress dose steroids likely which will also cover transplant
s/p transfuse RBC
critically care time 31 minutes
-
-
Date of Service: April 07, 2025
CC / HPI / ROS
-
Chief Complaint:
Sepsis
History of Present Illness:
ELIZABETH/Cr stable 2.1
BPs stable remains off pressors
s/p CT chest 04/05 am
BUN down to 106
Hgb up after transfusion
on heparin gtt for PE
Review of Systems:
non oliguric with esteves
Weights up
no fever
no pain
Labs
-
Labs:
WBC 16.9 10^3/uL (4.8-10.8) H 04/07/25 02:42
RBC 2.92 10^6/uL (4.70-6.10) L 04/07/25 02:42
Hgb 8.9 g/dL (13.0-18.0) L 04/07/25 02:42
Hct 27.0 % (39.0-52.0) L 04/07/25 02:42
Plt Count 87 10^3/uL (130-400) L 04/07/25 02:42
Sodium 140 mmol/L (135-145) 04/07/25 02:42
Potassium 4.6 mmol/L (3.5-5.1) 04/07/25 02:42
Chloride 112 mmol/L (98-107) H 04/07/25 02:42
Carbon Dioxide 24 mmol/L (22-30) 04/07/25 02:42
BUN 103 mg/dl (9-20) H* 04/07/25 02:42
Creatinine 2.1 mg/dL (0.7-1.3) H 04/07/25 02:42
eGFR 31.43 04/07/25 02:42
Glucose 120 mg/dl (70-99) H 04/07/25 02:42
Calcium 8.3 mg/dl (8.4-10.2) L 04/07/25 02:42
Phosphorus Cancelled 03/29/25 17:00
Cfu-Y-Llxyfwfahbd Pept 26317 pg/ml 03/28/25 03:28
Albumin 2.9 g/dl (3.5-5.0) L 04/04/25 15:44
Physical Exam
-
Vital Signs:
Vital Signs
Temp Pulse Resp BP Pulse Ox
97.7 F 91 16 139/66 95
04/07/25 08:00 04/07/25 09:00 04/07/25 09:00 04/07/25 09:00 04/07/25 09:00
Cardiovascular:: Regular rate and rhythm
Respiratory:: Bilateral: Coarse
Lung Excursion:: Normal
Abdomen:: Nontender and Soft
Bowel Sounds:: Normal
Extremity Edema:: +1: Bilateral:
--- NOTE | 2025-04-07 10:00 | PTOTSP ---
Speech Language Pathology
VIDEOFLUOROSCOPIC SWALLOWING EXAMINATION (VSE) completed. Significant improvement noted from FEES completed 03/29. Mild pharyngeal dysphagia noted. Supraglottic penetration noted at times with no aspiration noted during study. Pharyngeal residue
noted at times, which pt was able to clear majority of the time with independent swallows. Liquid wash also reduced residue post regular solids. Etiology of dysphagia is likely prolonged hospitalization and deconditioning. Prognosis for tolerance
of diet is good.
Recommend:
(1) Upgrade to regular solids/thin liquids
(2) Aspiration precautions: slow rate, sit upright, single sips only, frequent sips of liquids post solids, intermittent throat clear/reswallow
(3) Meds whole in puree
(4) HELMINTHOLOGIST to continue to follow
--- NOTE | 2025-04-07 10:51 | PTCARENOTE ---
patient taken for swallow eval in bed. passed. report given to Norma in ICU. Transferred to 2260 in bed with all belongings and medications and placed on ICU monitor.
--- NOTE | 2025-04-07 11:30 | PTCARENOTE ---
Rec'd pt at 1050 via bed from CVICU s/p VSE. Rec'd pt drowsy but easily arousable and oriented. Speech is clear. Pt is INAJA. Denies headache or dizziness just admits to feeling tired. JEFFERSON but weakly. Skin is pale wm and dry. Feet are sl cool. Bilat
groin dressings are D+I. Sites wnl. No swelling or drainage. L arm is reddened and ecchymotic with +2 edema. Dressing is intact at previous L radial A line site. Foam dressing intact on sacrum. L nare remains with large clot. Respirs are shallow but
non-labored at rest. Does have some NIETO. BS are decreased at the bases bilat but clear. RA sats are 94-95%. Getting about [id number] on IS. Monitor Afib in the 90's (sometimes appears like Aflutter) Denies chest pain. + pulses. PT and DP pulses with
the doppler. VS as documented. Pt remains on Heparin gtt at 1200 units/hr via R arm Midline catheter. Abd is soft with + BS. Pt with R nare feeding tube at the 66 cm arturo. Tolerating Nepro tube feeds at 20 ml/hr with 25 ml/hr flush. Incont of a
smear of brown stool. Esteves intact for sarah/yellow urine. Capped ints intact L forearm and R wrist. Pt with [facility] HD Cath- dressing over is D+I. Per report pt will not be having HD today per nephrology. Turned and repositioned. CHG bath, esteves and
mouth care given. Plan of care reviewed with pt and call tao in reach.
--- NOTE | 2025-04-07 12:01 | W.PN.CD ---
Today's Communication / Plan
-
Monitor BP.
If BP remains high without intention for iHD, we need to consider BP control (carvedilol, CCB) to avoid flash pulmonary edema.
Continue to monitor renal function.
Impression / Plan
-
Impression/Plan: 79M with prior renal transplant in 2019 presenting with septic shock and ELIZABETH now on CRRT with inability to tolerate iHD, now status post TF TAVR 04/06/2025.
#Aortic stenosis, severe:
-Chronic, progressive, low flow, low(lm) gradient.
-Concern that severe was contributing to shock and failure to tolerate HD.
-s/p TF TAVR with Shu S3 Ultra 26 mm valve (Ric/Santo, 04/06/25).
-Telemetry shows atrial flutter, rate controlled.
-Antithrombotic therapy with apixaban.
-Access sites are C/D/I.
-Post TTE shows stable valve, normal gradients, no effusion.
#ELIZABETH on CKD
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
-Residual renal function is minimal (some urine production) but nephrology feels that renal function will likely not meaningfully recover.
-BUN down to 103, creatinine down to 2.1.
-Nephrology following, not recommending iHD today.
#Acute respiratory failure:
-History of ILD, has been stable as outpatient.
-CT scan 03/28/25: Mild pneumomediastinum, with superior extension into the fat at the base of the neck, as well as at the posterior and lateral aspect of the right mid to upper thorax. Diffuse bilateral interstitial and groundglass opacity. This
could be related to fluid associated with interstitial and pulmonary edema related to volume overload or congestive heart failure. Alternatively, findings may be infectious in nature related to atypical or viral pneumonitis. No focal dense
consolidation. On IV steroids. On IV abx.
-Extubated, minimal O2.
-LVEDP 18 mmHg during TAVR (04/06/2025).
#Hypertension
-Chronic, now elevated inpatient.
-Nephrology following.
-No role for ACEI/ARB/ARNi/MRA.
-BP control has been minimal due to inability to tolerate iHD.
-If there is no intention for iHD, we need to consider transitioning metoprolol to carvedilol or adding CCB for better BP control to avoid flash pulmonary edema.
#Septic shock/pyelonephrosis
-Acute, now resolved.
-No longer on pressors
-ID following, s/p 2 week abx course.
#Permanent AFIB:
-Chronic, stable.
-Rate control with metoprolol.
-CHADS2-Vasc = 4 (CHF, HTN, Age x2).
-Apixaban transitioned to heparin, then argatroban given concern for HIT. Transition back to DOAC.
#Anemia/Thrombocytopenia:
-Acute on chronic, multifactorial.
-Slowly drifting in recent days; may be due to IVF.
-No obvious clinical bleeding.
-2U pRBCs before TAVR --> with appropriate response, appears sustained (6.4 --> 8.7 --> 8.9).
-Platelets = 117 --> 112 --> 106 --> 97 --> 87.
Critical Care Time = 32 minutes.
Subjective/Interval History:
TAVR yesterday.
Weight continues to rise, now 74 kg.
Patient is now somewhat hypertensive (168/93).
SaO2 = 95% on RA.
DATA:
Echo 03/23/25:
SUMMARY
1. Normal biventricular size and systolic function.
2. Severe aortic stenosis, mean 39 mmHg and estimated SHU 0.46 cmsq. Aortic valve assessment may be affected by anemia (Hgb 7.5).
3. Severe left atrial enlargement.
4. Compared to echocardiogram dated 05/19/2024 the gradient across the aortic valve has increased from 29 mmHg, the aortic valve area was estimated at 0.9 cmsq. The Hgb in 05/2024 was 15.
TAVR, 04/06/2025:
CONCLUSION: Successful placement of a 26 mm Santana Shu 3 Ultra RESILIA transcatheter aortic valve via right transfemoral approach with no acute complications.
Echo, 04/06/2025:
SUMMARY
1. Normal biventricular size and function without wall motion abnormality.
2. LVEF is 60-65% by visual estimation.
3. S/p 26 mm Santana TAVR valve. Mean gradient 4 mmHg. Trivial aortic regurgitation.
4. Limited interrogation of other valves.
5. Compared to prior from March 23, 2025, now status post TAVR valve.
Echo, 04/07/2025:
SUMMARY
1. Limited echocardiogram. HORACIO performed 04/06/2025.
2. Normal biventricular size and systolic function.
3. Biatrial enlargement.
4. The TAVR is well-seated without aortic regurgitation. Mean gradient 7 mmHg.
5. No significant change since echocardiogram performed immediately after HORACIO.
Physical Exam
Vital Signs/Labs
Vital Signs
Temp Pulse Resp BP Pulse Ox
36.5 C 85 19 139/66 95
04/07/25 08:00 04/07/25 10:00 04/07/25 10:00 04/07/25 09:00 04/07/25 09:00
04/06/25 04/07/25 04/08/25
11:59 11:59 11:59
Actual Weight 72.7 kg 74 kg
04/07/25 02:42
04/07/25 02:42
PT 15.1 Sec (11.4-14.6) H 04/04/25 15:44
INR 1.16 04/04/25 15:44
APTT 92.7 Sec (23.4-35.0) H 04/07/25 06:37
Magnesium 1.9 mg/dl (1.6-2.3) 04/07/25 02:42
Triglycerides 220 mg/dl (10-149) H 03/27/25 03:27
03/19/25 03/26/25 03/28/25
23:51 03:21 03:28
Lcq-M-Mjrpduzhheq Pept > 26890 [id number]
Physical Exam
Constitutional: No acute distress and Comfortable
EENT: Anicteric and Moist mucous membranes
Cardiovascular: Pedal edema is absent, JVD pressure is normal, Rhythm/rate is irregular, S1S2 is normal and Murmur/rub/gallop absent
Respiratory: Respiratory effort normal and Other (Decreased throughout.)
GI: Soft, Distention absent, Flat, Non tender and Normal bowel sounds
Neuro/Psych: AO x 3
Other: Cath Site (Bilateral femoral access sites are C/D/I.)
Data Reviewed
-
Date of Service: April 07, 2025
Medical Decision Making: Reviewed Test Results, Independent Historian Assessment and Test Interpretation
EKG: Tracing Personally Visualized and interpreted and Report Reviewed by me
Echo: Tracing Personally Visualized and interpreted and Report Reviewed by me
X-Ray/CT/US/MRI/NUC/PET: Image Personally Visualized and interpreted and Report Reviewed by me
Medical Tests (PFT, Pathology etc): Image Personally Visualized and interpreted, Report Reviewed by me, Discussed with Physician and Discussed with Patient
Labs: Labs Reviewed by me
Old Records: Reviewed
[2025-04-07] MEDS: NOVOLOG FLEXPEN-HIGH RESISTANCE 4 UNITS SC (12:49)
[2025-04-07 13:00] LABS: Glucose - Point of Care 201 mg/dl (70-99)
--- NOTE | 2025-04-07 13:15 | W.PN.UPDATE ---
Update Note
Progress Note Update
TTE reported normal biventricular size and systolic function. Aortic valve mean gradient 7 mmHg. Groin sites intact without bleeding/hematoma. Hb stable @ 8.9. Voiding adequate quantity, no dialysis required. Transition back to ICU. We will sign
off. Please reconsult if further assistance required.
--- NOTE | 2025-04-07 13:20 | PTCARENOTE ---
Wound RN here and wound care given. Repositioned. Ready to eat lunch.
--- NOTE | 2025-04-07 13:32 | WOUNDNOTE ---
SACRUM, LEFT AND RIGHT BUTTOCKS
--- NOTE | 2025-04-07 13:36 | WOUNDNOTE ---
[facility] RN NOTE: Followed up with patient for evolving DTI of sacrum. Sacrum still continues to be a stage 2 PI. Loose stool cleaned from buttocks. Scattered of areas of MASD in gluteal cleft noted. Calazime applied to areas of MASD and sacral stage 2.
New sacral foam applied sacrum. Heels intact and new adhesive foam applied. Heels off-loaded with pillows under calves. Patient turned on left semi-side lying position. [facility] and turning schedule. Patient on PEG tube
feedings and had a swallowing study earlier today.Will continue to follow during in-patient stay.
[2025-04-07] MEDS: FLUSH (NSS) 1 FLUSH IV (13:54)
--- NOTE | 2025-04-07 13:55 | PTCARENOTE ---
Pt fed lunch- Had one coughing episode with drinking lemonade to fast but otherwise tolerated food and swallowed without difficulty. Did tire with eating and needed to take breaks and overall appetite was limited at best. Did eat all of his pudding
and drank the lemonade but ate little else. Tube feeds continue. After eating and episode of coughing did c/o L chest soreness at a pointed spot stating ' I can tell exactly where they did the surgery'. Said it did not feel like 'chest pain' but did
ask for pain medication as he described it as an 8/10 discomfort. Medicated at 1352 with Dilaudid 0.5 mg IV. Assessment is otherwise unchanged and call tao in reach.
--- NOTE | 2025-04-07 15:00 | PTCARENOTE ---
Dozed after Dilaudid. Awake currently and family at the bedside and updated. Dr. Genao in to see pt and updated. Does have some intermittent chest soreness at one spot- in L chest but states its better. New tube feeding bag hung. 10 ml residual.
Call tao in reach. Continuing to encourage IS.
[2025-04-07] MEDS: HEPARIN 25000 UNITS/250 ML IV (15:17)
--- NOTE | 2025-04-07 16:45 | PTCARENOTE ---
Turned and repositioned. Gets uncomfortable with his lower back and buttocks. Pts at the bedside. No other changes in assessment
[2025-04-07 17:25] LABS: Glucose - Point of Care 196 mg/dl (70-99)
[2025-04-07] MEDS: NOVOLOG FLEXPEN-HIGH RESISTANCE 2 UNITS SC (17:25)
--- NOTE | 2025-04-07 18:00 | PTCARENOTE ---
Ate pineapple for dinner. Initally around 1700 was asking for more pain med because he was uncomfortable -then was repositioned and currently said he is comfortable and did not want anything additional. Wants to just rest. Call tao in reach.
[2025-04-07] MEDS: SENOKOT-S 1 TABLET PO (20:33)
--- NOTE | 2025-04-07 21:00 | PTCARENOTE ---
Report received from prior shift RN [id number]. Pt received in bed. AAO3, drowsy but easily arousable to verbal stimuli, [place] b/l, flat affect noted. Pt reports whole body discomfort, denies desire for PRN pain medication, repositioned for comfort and skin
integrity. Lung sounds are clear/decreased throughout w fine crackles in b/l base (R>L), + NIETO, oc moist nonproductive cough noted, pox 94-95% on room air. IS at bedside and encouraged, pt achieving 1000 ml. Telemetry rhythm reveals Afib, HR
80-100's, irregular w + murmur. B/L upper extr edema noted, RUE +1 LUE +3 (red/ecchymotic), + radial pulses, trace- +1 ankle/pedal edema, +doppler pt/dp, knee high SCDs in use. +BS, abdomen soft nontender, pt denies nausea. R nare DHT in place at
66cm, Nepro TF 20 ml/hr w 25ml/hr auto water flush, no residual at this time. Pt tolerating oral 2g Na diet, poor appetite reported. Disla catheter in place draining yellow/sarah urine. Skin as documented. L FA int and R FA int capped. RUE midline
catheter with Heparin infusion received at therapeutic rate of 1200 units/hr (12 ml/hr). R tunnelled IJ HD catheter in place. Complete CHG bath/oral care/Disla care provided. Call tao within reach, safe environment maintained. Will continue to
monitor closely.
[2025-04-07] MEDS: MELATONIN 5 MG PO (21:14)
[2025-04-07 22:04] LABS: Glucose - Point of Care 144 mg/dl (70-99)
[2025-04-07] MEDS: VALIUM 2 MG PO (23:19)
[2025-04-08] VITALS (31 sets, daily range): BP systolic 98–147; BP diastolic 28–93; PULSE 93; O2SAT 96; BMI 22.3
--- NOTE | 2025-04-08 00:30 | PTCARENOTE ---
No change in physical assessment. Pt requesting frequent repositioning in bed. Air cushion remains beneath pt's hips in bed and using pillows to reposition onto either side intermittently. Pt reports feeling anxious, PRN Valium administered per
order ~2320; little effect noted. Will continue to monitor closely.
[2025-04-08] MEDS: DILAUDID 0.5 MG IV ×2 (01:09→16:58)
[2025-04-08] MEDS: FLUSH (NSS) 1 FLUSH IV ×2 (01:10→16:59)
--- NOTE | 2025-04-08 05:32 | PTCARENOTE ---
Pt has been sleeping intermittently over the past several hours. No complaints offered at this time. No change in pt's physical assessment. Will continue to monitor.
[2025-04-08 05:47] LABS: APTT 108.7 Sec (23.4-35.0); Hematocrit 23.8 % (39.0-52.0); Hemoglobin 7.6 g/dL (13.0-18.0); Mean Corp Hgb Conc. 31.9 g/dL (33.0-37.0); Mean Corpuscular Volume 96.0 fL (80.0-94.0); Platelet Count 62 10^3/uL (130-400); Red Cell Dist. Width 18.9 % (11.5-14.5)
[2025-04-08 06:14] LABS: Blood Urea Nitrogen 98 mg/dl (9-20); Calcium 8.5 mg/dl (8.4-10.2); Carbon Dioxide 27 mmol/L (22-30); Chloride 109 mmol/L (98-107); Estimated Creatinine Clearance 29 ml/min; Glucose 123 mg/dl (70-99); Magnesium 2.0 mg/dl (1.6-2.3); Potassium 4.2 mmol/L (3.5-5.1); Sodium 136 mmol/L (135-145); eGFR 29.72
--- NOTE | 2025-04-08 07:02 | W.PN.CD ---
Today's Communication / Plan
-
Stable from a cardiovascular standpoint.
Anemia/thrombocytopenia will continue to dictate antiplatelet/antithrombotic strategy.
Check thiamine levels, reticulocyte counts.
Upper extremity US to r/o DVT.
Possible role for serotonin release assay if there is discordant TARI and 4T findings.
Impression / Plan
-
Impression/Plan: 79M with prior renal transplant in 2019 presenting with septic shock and ELIZABETH now on CRRT with inability to tolerate iHD, now status post TF TAVR 04/06/2025.
#Aortic stenosis, severe:
-Chronic, progressive, low flow, low(lm) gradient.
-Concern that severe was contributing to shock and failure to tolerate HD.
-s/p TF TAVR with Shu S3 Ultra 26 mm valve (Ric/Santo, 04/06/25).
-Telemetry shows atrial flutter, rate controlled.
-Antithrombotic therapy with apixaban on hold. Continue aspirin in the mean time.
-Access sites are C/D/I.
-Post TTE shows stable valve, normal gradients, no effusion.
#ELIZABETH on CKD
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
-Residual renal function is minimal (some urine production) but nephrology feels that renal function will likely not meaningfully recover.
-BUN down to 98, creatinine 2.4.
-Nephrology following, did not recommend iHD yesterday.
#Acute respiratory failure:
-History of ILD, has been stable as outpatient.
-CT scan 03/28/25: Mild pneumomediastinum, with superior extension into the fat at the base of the neck, as well as at the posterior and lateral aspect of the right mid to upper thorax. Diffuse bilateral interstitial and groundglass opacity. This
could be related to fluid associated with interstitial and pulmonary edema related to volume overload or congestive heart failure. Alternatively, findings may be infectious in nature related to atypical or viral pneumonitis. No focal dense
consolidation. On IV steroids. On IV abx.
-Extubated, minimal O2.
-LVEDP 18 mmHg during TAVR (04/06/2025).
#Hypertension
-Chronic, improved from yesterday.
-Nephrology following.
-No role for ACEI/ARB/ARNi/MRA.
-BP control has been minimal due to inability to tolerate iHD.
-If there is no intention for iHD, we need to consider BP control options for future hypertension.
#Permanent AFIB:
-Chronic, stable.
-Rate control with metoprolol. HR ~ 100.
-CHADS2-Vasc = 4 (CHF, HTN, Age x2).
-Apixaban transitioned to heparin, then argatroban given concern for HIT. Transition back to DOAC delayed in light of anemia/thrombocytopenia.
#Anemia/Thrombocytopenia:
-Acute on chronic, multifactorial.
-No obvious clinical bleeding.
-2U pRBCs before TAVR --> with appropriate response but continues to drift (6.4 --> 8.7 --> 8.9 --> 7.6).
-Platelets = 117 --> 112 --> 106 --> 97 --> 87 --> 62. Heparin associated platelet antibody negative, but platelets continue to fall with resumption of heparin.
-Macrocytic. Transfusion would have repleted Fe stores (also ferritin 1550 on 03/19/2025). B12, folate normal on 03/19/2025. Check thiamine, reticulocytes.
-There is LUE edema with ecchymosis. We will check a LUE US.
-Current 4Ts score = 3-4 which is intermediate (>50% platelet fall, maddi > 20k, TAVR within 3 days - but the thrombocytopenia predates this; platelet fall 5-10 days after starting heparin, again 1 day after restarting with prior exposure),
possibly high if there is RUE venous thrombosis.
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 If the patient does have DVT, it would be reasonable to consider a serotonin release assay based on discordant TARI and 4T score.
Subjective/Interval History:
Weight stable (lm) at 74.5 kg.
Blood pressure stable.
BUN down to 98, creatinine stable to 2.4.
DATA:
Echo 03/23/25:
SUMMARY
1. Normal biventricular size and systolic function.
2. Severe aortic stenosis, mean 39 mmHg and estimated SHU 0.46 cmsq. Aortic valve assessment may be affected by anemia (Hgb 7.5).
3. Severe left atrial enlargement.
4. Compared to echocardiogram dated 05/19/2024 the gradient across the aortic valve has increased from 29 mmHg, the aortic valve area was estimated at 0.9 cmsq. The Hgb in 05/2024 was 15.
TAVR, 04/06/2025:
CONCLUSION: Successful placement of a 26 mm Santana Shu 3 Ultra RESILIA transcatheter aortic valve via right transfemoral approach with no acute complications.
Echo, 04/06/2025:
SUMMARY
1. Normal biventricular size and function without wall motion abnormality.
2. LVEF is 60-65% by visual estimation.
3. S/p 26 mm Santana TAVR valve. Mean gradient 4 mmHg. Trivial aortic regurgitation.
4. Limited interrogation of other valves.
5. Compared to prior from March 23, 2025, now status post TAVR valve.
Echo, 04/07/2025:
SUMMARY
1. Limited echocardiogram. HORACIO performed 04/06/2025.
2. Normal biventricular size and systolic function.
3. Biatrial enlargement.
4. The TAVR is well-seated without aortic regurgitation. Mean gradient 7 mmHg.
5. No significant change since echocardiogram performed immediately after HORACIO.
Physical Exam
Vital Signs/Labs
Vital Signs
Temp Pulse Resp BP Pulse Ox
36.9 C 89 21 127/58 96
04/08/25 03:45 04/08/25 06:00 04/08/25 06:00 04/08/25 06:00 04/08/25 06:00
04/06/25 04/07/25 04/08/25
11:59 11:59 11:59
Actual Weight 72.7 kg 74 kg 74.5 kg
04/08/25 05:24
04/08/25 05:24
PT 15.1 Sec (11.4-14.6) H 04/04/25 15:44
INR 1.16 04/04/25 15:44
APTT 108.7 Sec (23.4-35.0) H 04/08/25 05:24
Magnesium 2.0 mg/dl (1.6-2.3) 04/08/25 05:24
Triglycerides 220 mg/dl (10-149) H 03/27/25 03:27
03/19/25 03/26/25 03/28/25
23:51 03:21 03:28
Qni-M-Jwzvovfrrue Pept > [id number]
Physical Exam
Constitutional: No acute distress and Comfortable
EENT: Anicteric and Moist mucous membranes
Cardiovascular: Pedal edema is absent, JVD pressure is normal, Rhythm/rate is irregular, S1S2 is normal and Murmur/rub/gallop absent
Respiratory: Respiratory effort normal
GI: Soft, Distention absent, Flat, Non tender and Normal bowel sounds
Neuro/Psych: AO x 3
Other: Cath Site (Bilateral femoral access sites are C/D/I.) and Other (The LUE is edematous in the forearm and echcymotic.)
Data Reviewed
-
Date of Service: April 08, 2025
Medical Decision Making: Reviewed Test Results, Independent Historian Assessment and Test Interpretation
EKG: Tracing Personally Visualized and interpreted and Report Reviewed by me
Echo: Tracing Personally Visualized and interpreted and Report Reviewed by me
X-Ray/CT/US/MRI/NUC/PET: Image Personally Visualized and interpreted and Report Reviewed by me
Medical Tests (PFT, Pathology etc): Image Personally Visualized and interpreted and Report Reviewed by me
Labs: Labs Reviewed by me
Old Records: Reviewed
[2025-04-08 07:47] LABS: Glucose - Point of Care 151 mg/dl (70-99)
[2025-04-08 07:50] LABS: Reticulocyte Count 3.2 % (0.4-2.8)
--- NOTE | 2025-04-08 08:11 | W.PN.NEPH.PH ---
Today's Communication / Plan
-
follow BMP
Assessment/Plan
-
This is a 79-year-old gentleman who follows in our office with Dr. Muhammad after donor renal transplant 2019 from [facility]. His transplant course has been complicated by development of nephrotic range proteinuria as well as recent
cellular rejection December of this year. The episodes treated with Solu-Medrol. His creatinine has risen quickly over time in the last several months. He has gone from a creatinine around 2 now up to 4.4. He was noted to have hydronephrosis of
the transplanted kidney recently on ultrasound as well as CT scan. Esteves catheter was placed by urology a few days ago. His appetite has been poor as of late. Recently he also developed fever and malaise and this has brought him to the emergency
room. He was noted to be febrile in the ER. Blood pressure was stable though lower than his home readings of 132. He was 100 systolic in the ER. Creatinine was 4.7 with elevated lactate level and elevated white count. CT of the abdomen and
pelvis were performed with suspicion for pyelonephritis of the transplant. We are asked to assist in management of his renal issues.
Assessment
Sepsis syndrome, possible pyelonephritis
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
donor renal transplant with FSGS, recent T-cell rejection
Obstructive uropathy, Esteves catheter in place
ELIZABETH..
Anemia
Hyponatremia
lactic acidosis
TAVR 04/06/25
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
Plan
Patient failed on intermittent dialysis hemodynamically due to aortic stenosis
Conventional dialysis could not be offered for the patient
Status post left and right heart cath 04/02 reviewed (nonobstructive coronary disease)
If dialysis required we will have to initiate CRRT to bridge to TAVR
Status post TAVR 04/06/2025
No emergent HD needed currently
If Cr stable tomorrow can dc CVC
follow CBC
last belatacept dose was 10/31 (450mg) would be due 04/09 and is ordered
continue pred/MMF
critically care time 31 minutes
-
-
Date of Service: April 08, 2025
CC / HPI / ROS
-
Chief Complaint:
Sepsis
History of Present Illness:
ELIZABETH/Cr stable 2.2
BPs stable remains off pressors
s/p CT chest 04/05 am
Hgb down to 7.6
on heparin gtt for PE
plts still falling
Review of Systems:
non oliguric with esteves
no fever
Labs
-
Labs:
WBC 16.7 10^3/uL (4.8-10.8) H 04/08/25 05:24
RBC 2.48 10^6/uL (4.70-6.10) L 04/08/25 05:24
Hgb 7.6 g/dL (13.0-18.0) L 04/08/25 05:24
Hct 23.8 % (39.0-52.0) L 04/08/25 05:24
Plt Count 62 10^3/uL (130-400) L D 04/08/25 05:24
Sodium 136 mmol/L (135-145) 04/08/25 05:24
Potassium 4.2 mmol/L (3.5-5.1) 04/08/25 05:24
Chloride 109 mmol/L (98-107) H 04/08/25 05:24
Carbon Dioxide 27 mmol/L (22-30) 04/08/25 05:24
BUN 98 mg/dl (9-20) H 04/08/25 05:24
Creatinine 2.2 mg/dL (0.7-1.3) H 04/08/25 05:24
eGFR 29.72 04/08/25 05:24
Glucose 123 mg/dl (70-99) H 04/08/25 05:24
Calcium 8.5 mg/dl (8.4-10.2) 04/08/25 05:24
Phosphorus 5.3 mg/dl (2.5-4.5) H 04/08/25 05:24
Iqg-E-Yzmoelyjitv Pept 82383 pg/ml 03/28/25 03:28
Albumin 2.9 g/dl (3.5-5.0) L 04/04/25 15:44
Physical Exam
-
Vital Signs:
Vital Signs
Temp Pulse Resp BP Pulse Ox
97.5 F 89 21 127/58 96
04/08/25 07:41 04/08/25 06:00 04/08/25 06:00 04/08/25 06:00 04/08/25 06:00
Cardiovascular:: Regular rate and rhythm
Respiratory:: Bilateral: Coarse
Lung Excursion:: Normal
Abdomen:: Nontender and Soft
Bowel Sounds:: Normal
Extremity Edema:: None: Bilateral:
[2025-04-08] MEDS: OCEAN, SALINE MIST 1 SPRAYS NASAL ×3 (08:20→21:08)
[2025-04-08] MEDS: BUSPAR 5 MG PO (08:21)
[2025-04-08] MEDS: SENOKOT-S 1 TABLET PO ×2 (08:21→21:06)
[2025-04-08] MEDS: DELTASONE 2.5 MG PO ×2 (08:21→21:06)
[2025-04-08] MEDS: LOPRESSOR 25 MG PO ×2 (08:21→21:12)
[2025-04-08] MEDS: CELLCEPT 1000 MG PO ×2 (08:21→21:11)
[2025-04-08] MEDS: DESENEX/MITRAZOL/ZEASORB 1 APPLIC TOPICAL ×2 (08:22→21:07)
[2025-04-08] MEDS: LOW STRENGTH ASPIRIN 81 MG PO (08:22)
[2025-04-08] MEDS: NOVOLOG FLEXPEN 3 UNITS SC ×3 (08:30→17:52)
[2025-04-08] MEDS: NOVOLOG FLEXPEN-HIGH RESISTANCE 2 UNITS SC ×2 (08:30→17:50)
--- NOTE | 2025-04-08 09:15 | PTCARENOTE ---
Rec'd pt at 0730 sleeping. Awakens easily to verbal stimuli. Admits to feeling tired and sleepy but is oriented and appropriate. States the spot of soreness he had in his L chest yesterday is gone. Still admits to soreness in his back and in general
depending on position but states is comfortable currently after being repositioned. JEFFERSON but weakly. Encouraged to move his arms and legs and informed pt the plan of later this morning trying to sit him on the side of the bed. Skin is pale wm and
dry. L arm with extensive bruising and +3 edema- elevated on pillows. Arm is warm and + pulses. Bilat groin puncture sites with dressings over that are D+I. No swelling or drainage. Sacral foam is intact. Lnare remains with clot from previous
nosebleed. Getting saline nasal spray. Was able to remove some of the clot outside of the nostril. Respirs are shallow at times Non-labored at rest although will get minimally tachypnic with some NIETO with activity (such as eating) that improves
with rest. RA sats are 95%. Occasional moist non-prod cough. BS are decreased at the bases with few base crackles. Monitor AFib. + murmur. VS as documented. + pulses. PT and DP pulses with the doppler. Edema as noted. Pt remains on IV Heparin at
1200 units/hr via R arm midline catheter- site wnl. Abd is soft with + BS. Pt continues with Nepro tube feeds via R nare FT. FT at the 66 cm arturo. 10 ml residual. Fed 2 gm Na++ diet- took a while to eat as he needed to eat slowy/tires easily but
eventually was able to eat 80% of breakfast. No difficulty noted with swallowing and took po meds whole in applesauce. (Cellcept given via FT). No c/o nausea. Incont of a smear of brown stool. Esteves intact for yellow urine. Capped ints intact R and
L forearms. RIJ cath site wnl. Pt turned and repositioned. Completed CHG bath, esteves and mouth care given. Plan of care reviewed with pt and call tao in reach. Dr. Ewing and Kaela in to see pt and updated. Labs sent as ordered.
--- NOTE | 2025-04-08 10:40 | W.PN.PUL3 ---
Today's Communication / Plan
-
- Continue buspar given he appears depressed
- s/p TAVR on 04/06 - tolerated procedure well with no immediate complications
- Continue chronic prednisone and MMF
- Defer HD/CRRT for now as he is nonoliguric; trend sCr and UOP; currently no need for HD per nephro
- Goal BG >100 and <180
- Continue heparin gtt (TOBIAS panel negative); follow up Vitamin B1 and B12 levels to see if contributing to his BM suppression (low reticulocyte production index of 1.1; normal is >2)
- May need heme consult at some point to consider BM biopsy if anemia and TCP persist to eval for BM disorder (i.e. aplastic anemia vs other infiltrative process)
- I touched base with ENT today to make them aware of his continued worsening anemia; continue to monitor for epistaxis while using Afrin as needed with dissolvable gauzes
Continue IMU level of care; Pulmonary service to continue to follow along
Assessment
-
79-year-old male with a 1 pack year smoking history, hypertension, nephrolithiasis, pulmonary nodule, atrial fibrillation, and renal transplantation on mycophenolate and prednisone with recent ultrasound showing transplant hydronephrosis presented
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
continuing to be managed. Pulmonary service now continuing to follow along.
#1. Septic shock due to UTI/acute pyelonephritis, with Klebsiella bacteremia - shock state resolved
- He remains HDN stable
- ID service recs appreciated - they signed off on 04/02, completed IV Unasyn on 04/02 - monitor off ABx while trending WBC and monitoring temperature curve
- Klebsiella and Enterococcus in urine culture from 03/18/2025
- Doing well off pressors
#2. Acute hypoxic respiratory failure
- Patient was intubated 03/21, extubated 03/25, and continued to require supplemental oxygen however he has markedly improved, and has been on room air for few days now
- Keep SpO2 >90-94%
- Aspiration precautions
- Bilateral interstitial opacities, basal predominant with interseptal thickening, suggestive of pulmonary edema vs interstitial lung disease
- Patient has baseline mild reticular changes on imaging suggestive of mild fibrosis, recent CT was with significant worsening
- Patient has severe aortic stenosis, poor tolerance of HD with significant uremia, fluid overload also was in differential diagnosis
- ILD exacerbation cannot be ruled out, patient empirically started on high-dose IV steroids on 03/28, gradually weaning since, last dose of prednisone 04/04 (20mg)
- 03/30, RHC with PCWP only 8, also f/u CXR with improved interstitial opacities more suggestive of improving pulmonary edema rather than ILD
- Mild pneumomediastinum noted on imaging, suspect related to intubation and mechanical ventilation, stable on recent CT TAVR
#3. ELIZABETH with hydronephrosis of transplanted kidney - now nonoliguric; last HD session 04/01 (did not tolerate)
- Severe pyelonephritis as well as obstructive uropathy with severe hydronephrosis in the right lower quadrant transplanted kidney noted on imaging (CT A/P from 04/04/2025); iqugmiut kidneys are severely atrophic
- s/p Disla catheter placement
- Patient had been initiated on hemodialysis (last HD session on 04/01, which he did not tolerate)
- Due to poor tolerance of HD, 03/29, transitioned to CRRT
- History of renal transplant in 2019. MMF has been resumed on 03/30 per nephrology service; patient to start belatacept on 04/09, per nephrology
- 03/30, With low PCWP and low filling pressure, and improving CXR, patient received 1 ltr IVF
- 03/31, urine output marginally improved, creatinine continues to be high, BUN continues to climb
- 04/01, IR guided dialysis catheter exchanged in right IJ, scheduled for HD trial. [place] during dialysis, patient became tachycardic, tachypneic with respiratory distress, prematurely had to end hemodialysis followed by clinical improvement.
- Interestingly, EPO levels were 13 on 03/10/2025 (reference range: 4�27 mU/mL)
- Nephro to hold off on HD as of 04/07, as he remains nonoliguric and sCr is improving
#4. Epistaxis involving left nare s/p rapid Rhino via ENT - rapid rhino removed as of 03/26
- 04/04 had another episode of self-limiting epistaxis. Currently on heparin gtt
- If there are additional drops in Hb with concern for continued nose bleed, then would contact ENT to re-eval the pt as he may need rapid rhino again vs cauterization of his left nare
#5. History of pulmonary nodules and baseline mild ILD
- Review of prior imaging shows mild reticular changes mostly in the posterior and basal area
- Concerning for chronic ILD versus early fibrotic changes with prior history of COVID-19
- Patient follows up with Dr. Olivarez at [facility] pulmonary clinic.
- Connective tissue disease panel negative with normal ROXANNE and rheumatoid factor levels.
- Current worsening on most recent CT chest from 03/28, which has persisted on CT TAVR from 04/04, with concern for LD exacerbation (high inflammatory markers with ESR 94, CRP 269 on 03/28); less like volume overload as LHC 3 days prior on 04/02
showed normal LVEDP at 9mmHg, and RHC on 03/30/2025 showed normal PCWP of 8mmHg.
#6. Atrial fibrillation with rapid ventricular response/A-flutter
- Rate controlled as of 04/08
- Continue metoprolol as tolerated
- Eliquis on hold, currently on heparin infusion
#7. Severe with cardiogenic shock s/p right transfemoral TAVR with 26 mm Santana Resilia TAVR valve (OR date: 04/06/2025)
- RHC 03/2025, PCWP 8, CI 1.9, SVR 1526.
- 04/03, left heart cath without any significant coronary artery disease.
- Continue heparin gtt with eventual TRX back to [facility] once clinically safe to do so
#8. Bleeding around HD catheter, 04/04 - resolved
- There had been ongoing oozing noted around HD catheter site, unresponsive to local pressure - -> surgicel placement + pressure bag applied
- Area cleaned, ongoing bleeding noted from one of the stitches. Stitch removed, after injecting lidocaine new stitch placed at a different location. Hemostasis achieved. No further ongoing bleeding noted.
#9. LLL Pulmonary embolism, 04/04, newly detected
- Patient has had interruption of anticoagulation this admission due to epistaxis
- CT on 04/04 suggestive of small left lower lobe pulmonary embolism, patient currently on room air, saturating well not on any respiratory distress
- LE duplex negative for DVT (04/05)
- Continue heparin gtt, and trend Hb and aPTT; transfuse blood products if needed to keep Hb>7-8g/dL, plt>50k (given post-operative status and unstable anemia with recent nose bleed); keep INR<1.8
#10. Anemia and thrombocytopenia
- Due to bone marrow suppression in setting of critical illness with recent pyelonephritis with sepsis
- Patient's reticulocyte production index checked today (04/08/2025) and is low at 1.1, indicating inadequate bone marrow response, in this case, his renal failure is contributing; B12 and B1 levels are pending; folate has already been checked on
03/19/2025 and is normal; b12 levels were 400 on 03/19/2025; iron saturation was normal on 03/26/2025, at 21% despite low iron and low TIBC levels
- Heparin associated platelet antibody negative (collected 04/04/2025)-prior - -> 4T score was elevated at 4, hence argatroban was stopped on 04/05 after being started on 04/04
- Cautiously continue heparin drip
- Transfuse blood products as stated above
Conditions present prior to admission:
Hx of ESRD s/p renal transplantation-[facility] 2019-follows at [facility]-Dr. Hines and locally Dr. Muhammad
Permanent atrial fibrillation/Eliquis.
Hypertension.
BPH.
Postherpetic neuralgia.
Chronic back pain.
Pulmonary nodule right base with negative PET followed by Dr. Olivarez
Fatty liver.
Inguinal hernia
Osteoporosis.
Hernia repair.
Cataract 2020. Transplant kidney December 2018.
DVT prophylaxis: on heparin gtt
Stress ulcer prophylaxis: N/A
FEES 03/29. on pur�ed diet
Previous [facility] discussions: Prognosis unfortunately poor with multiorgan dysfunction-goals of care discussion reviewed on 03/23 with the patient's daughters and with Dr. Genao; they understand that he is critically ill but they would like to
continue full medical management for now and are not interested in withdrawal care. As of 03/24, given that his mental status has improved, I recommend to continue with full aggressive management considering that he is improving. Unfortunately as
of 03/25, he continues to be hypoxic and severely deconditioned after extubation. Goals of care discussion held with Dr. Genao, and the and daughter on 03/25. They would like to continue with full medical care, as the feels that this
is what Johann would have wanted. I also discussed this goals of care with the patient himself and he says to 'do what ever is needed' at this time.
The patient last saw Dr. Olivarez 03/08/2025 for ILD, restrictive lung disease and pulmonary nodule-has appointment for PFT 04/28/2025 at 3 PM [address] appointment [address] Olivarez 04/29/2025 at 11:15 AM
Pulmonary service will continue to follow along while he is managed in IMU.
Office note Dr. Olivarez 03/08/2025 in regards to pulmonary nodule:
CT imaging August 2024 revealed approximately 1.3 cm nodular opacity in the right base, not present on previous exam.
Underwent a repeat CT in November 2024 Showed resolution of previously seen right basilar nodule but a new 1.4 cm nodule in the right lower lobe.
Underwent a PET scan 12/17/2024 which showed evolution of right lower lobe nodule, now presenting as large ground glass nodule measuring up to 3.9 cm. Highly suggestive of benign infectious/inflammatory process.
Repeat CT 02/2025: now demonstrate bilateral peribronchiolar ground glass infiltrate bilaterally.Unclear etiology, differential Dx includes inflammatory/infectious process vs pulmonary edema.there is evidence of small bilateral pleural effusions,
with history of aortic stenosis pulmonary edema except possibility.With ongoind immunosupresion will need to keep in my oportunistic infection.
Will obtain ILD serology, proBNP and inflmmatory markers.
Bronchoscopy with BAL may be required-if there is no evidence of volume overload.-Of note He was treated with an antibiotic and steroids middle of October 2024. He denies any active Symptoms suggesting infection.If He does produce any phlegm, we will
submit sputum culture
Diagnostic data:
CT Chest 03/28/2025- Mild pneumomediastinum, with superior extension into the fat at the base of the neck, as well as at the posterior and lateral aspect of the right mid to upper thorax.
Diffuse bilateral interstitial and groundglass opacity. This could be related to fluid associated with interstitial and pulmonary edema related to volume overload or congestive heart failure. Alternatively, findings may be infectious in nature
related to atypical or viral pneumonitis. No focal dense consolidation.
Chest x-ray 03/18/2025-severe chronic inflammatory interstitial pneumonitis
CT abdomen and pelvis 03/18/2025-severe acute edema and inflammation around right lower quadrant renal transplantation, severe hydronephrosis, severe bilateral atrophic iqugmiut kidneys, small bilateral pleural effusions, increased coarse interstitial
markings throughout both lower lobes, right middle lobe with severe chronic inflammatory interstitial pneumonitis
ILD serology 03/10/2025-negative rheumatoid factor, ROXANNE, SSA antibodies, scleroderma antibody, proteinase [address] chest 02/23/2025 Reviewed Uriel Leong 03/08/2025 06:25:26 AM EDT >1. Resolution of previously seen right lower lobe 1.4 cm nodule.2. Mild to moderate changes of pulmonary fibrosis as seen previously.3. Superimposed upon the changes of
fibrosis, there is new large amount of bilateralperibronchovascular interstitial and groundglass opacity with small amount of bilateral upper lungairspace consolidation as detailed above. There are very small bilateral pleural effusions. Whileedema
is a differential consideration, findings are more suggestive of a superimposed infectious orinflammatory process. There is associated mild mediastinal adenopathy.-
PET CT 12/17/2024 reviewed: Uriel Leong 03/08/2025 06:25:44 AM EDT >The previously seen solid right lower lobe nodule has evolved/changed in morphology, nowpresenting as a large groundglass nodule measuring up to 3.9 cm which demonstrates
max SUV 4.7(delayed 5.4). Otherwise, no suspicious FDG avid lesions.ABDOMEN and PELVIS:No suspicious FDG-avid lesions.SKELETON:No suspicious FDG-avid lesions.This suggests inflammatory process.-
CT chest 2023: Reviewed Uriel Leong 07/05/2023 08:49:26 AM >1. No significant acute abnormality identified in the chest within the limits of unenhanced CT, asdescribed above. Probable residual fibrotic changes in the lungs, less
likely active pneumonitis.-
CT chest 02/27/2023: Reviewed Uriel Leong 03/06/2023 08:42:39 AM >There has been significant further improvement in the patient's bilateral parenchymal airspacedisease when compared with the previous examinations.Currently, there is mild
left and moderate diffuse coarsening of the interstitial markingsthroughout both lungs which at this point may be residual scarring/fibrosis rather than acute inflammatory disease.There is mild cardiomegaly. There is atherosclerosis-
CT chest 11/23/2022: showed evidence of postinflammatory fibrosis. Groundglass opacities have resolved..
Pulmonary function testing ( 07/13/2024� ):FEV1: 3.4 L-107%FVC:3.96 L-89%FEV1/FVC ratio:86%T.52 L-73%RV:44%ERV:RV/TLC ratio:23%DLCO: 13.69-50%DLCO/VA: 70%
Echo 05/19/24: Normal biventricular size and function. EF 65%. Severely dilated LA. Paradoxical low flow low gradient aortic stenosis. Mild AR.
Total time spent today was 52 minute for this encounter. Time includes reviewing laboratory tests/imaging results, reviewing pertinent medical records, obtaining and reviewing medical history, performing an appropriate physical exam, ordering
medications, tests and procedures. Time also includes documentation of this encounter, coordinating patient care and communicating with other healthcare professionals. Total time does not include separately billed tests or procedures performed on
this date of service.
Subjective Data
-
Date of Service:
Date of Service: April 08, 2025
Chief Complaint: Pulmonary Follow Up
Subjective:
Patient seen this morning. Current heart rate 87, and he is in a flutter. BP 1 47-69 and saturating 95% on room air. Afebrile overnight. He required 2 person assistance to get picked up earlier this morning from the bed, per nursing staff. He
is still extremely deconditioned.
Review of Systems
General: Other (Negative unless mentioned above)
Objective Data
Data Reviewed
Vital Signs / I&O / Oxygen:
Vital Signs
Temp Pulse Resp BP Pulse Ox
97.5 F 92 20 130/66 96
04/08/25 07:41 04/08/25 09:00 04/08/25 09:00 04/08/25 09:00 04/08/25 09:00
Intake and Output
04/07/25 04/08/25 04/09/25
06:59 06:59 06:59
Intake Total 1423 / 1455 1813 / 1870 371 / 371
Output Total 2540 / 2640 1580 / 1580 150 / 150
Balance -1117 / -1185 233 / 290 221 / 221
SaO2 [ASV] 98
SaO2 [A/C] 96
SaO2 [NIV (Non Invasive 97
Ventilation)]
SaO2 96
Nasal Cannula flow liters per 2
minute
Physical Exam
General: Respiratory Distress (negative), Comfortable, Chills (negative), Sweats (negative) and Other (Elderly male, in NAD; significantly deconditioned)
HEENT: Normocephalic, Anicteric and Other (Dried blood seen in left nare)
Cardiovascular: Irregular Rhythm and Peripheral Edema (+1 lower extremity pitting edema bilaterally)
Respiratory: Wheeze (negative), Crackles (Bibasilar), Rhonchi (negative) and Non-Labored Respirations
GI: Soft, Non Distended, Non Tender, Normal Bowel Sounds and NG Tube (DHT via right nare)
Neurology: Tremors (negative) and Other (Somnolent today although easily arousable to voice)
Skin: Warm, Dry, Cyanosis (negative) and Jaundice (negative)
Labs/Micro/Reports
Lab Data
04/08/25 05:24
04/08/25 05:24
Laboratory Results
04/08/25
05:24
APTT 108.7 H
--- NOTE | 2025-04-08 11:30 | PTCARENOTE ---
Pt dozed after breakfast briefly. Pt very deconditioned. Sat pt with the assist of 2 on the side of the bed but has a difficulty time sitting upright and keeping his head up. Very weak. Sat with assistance for about 10 minutes then was tired and
felt a little dizzy. Need much encouragement. BP cuff removed from Lupper arm and placed on R calf due to L arm swelling. Dr. Leon in - Aware of L arm swelling/bruising. Per MD order - karl wrap placed on L upper arm from above fingers to upper
arm. Capped int removed from L forearm prior to karl wrap. No other changes.
--- NOTE | 2025-04-08 11:43 | W.PN.HOSP.TC ---
Today's Communication/Plan
-
Encourage PO
KRISSY bandage to LUE
Encourage activity
Watch creatinine
Watch blood counts
Assessment / Plan
Assessment / Plan
79-year-old with history of renal transplant admitted with septic shock secondary to UTI, VDRF and acute renal failure. Unable to tolerate dialysis secondary to aortic stenosis therefore urgent TAVR performed on 04/06/2025.
DHT present
CVS: S1-S2 normal
Chest: CTA B/L, few rales at bases.
Abdomen: Soft, NT , Bowel sounds present
Extremities: LUE edema , ecchymosis dorsal arm
# Edema LUE- Take the peripheral IV out. Add KRISSY bandages.Elevate.
#Severe aortic stenosis with cardiogenic shock
- RHC 03/30 indicates aortic stenosis as source of low cardiac output/cardiogenic shock.
- s/p cardiac cath 04/02/25 - non-obstructive CAD
- Decision made for more urgent TAVR in hopes of tolerating HD (see below)
- s/p TAVR CT work-up with incidental finding of PE (see below)
- He is s/p TAVR on 04/06 admitted to CVICU overnight
- Continue ASA 81 mg daily (received ASA 325 on 04/02/25)
- Appreciate CTS, Computer Education Professor, Cardiology
#History of renal transplant in 2019 - donor renal transplant 2019 from [facility]
Acute on chronic renal failure requiring hemodialysis
-Recent Treatment for rejection in December.
-Cellcept resumed 03/30/25 nephrology
-On steroids -Prednisone 2.5 mg BID
-Belatacept ordered per renal for 04/09/25
-Required hemodialysis on admission, received multiple session, but due to poor tolerance of HD, 03/29/25, transitioned to CRRT. Line clotted, off CRRT since.
-On temporary hemodialysis catheter
-HD attempt on 04/01/25 resulted in tachycardia and tachypnea during HD, Severe aortic stenosis likely limiting factor for hemodynamic instability during HD
-Losartan On Hold.
#Hydronephrosis of transplanted kidney
- Obstructive uropathy of transplant kidney, Disla placed 03/15/25
- Maintain Disla catheter
- Patient considering TURP
#Acute hypoxic respiratory failure requiring intubation 03/21-03/25
-Likely multifactorial secondary to pulmonary edema versus pneumonia versus interstitial lung disease
-s/p empiric high dose steroids for possible ILD, now on home prednisone
-with improvement in CXR post fluid removal with HD, may have been related to fluid; s/p RHC with PCWP 8 (post fluid removal)
-s/p antibiotic course for possible pneumonia
#Septic shock associated with acute kidney injury, lactic acidosis secondary to Klebsiella bacteremia likely secondary to urinary tract infection
Transplant kidney pyelonephritis with Klebsiella and E. faecalis
Immunosuppressed
-s/p 14 days IV antibiotics (completed 04/02/25)
-s/p pressor administration, now off
#Pneumomediastinum
#Pulmonary embolus within the posterior left lower lobe segmental pulmonary artery on CT Chest on 04/04/25
-Seen on CT Chest done in preparation for aortic valve surgery
-concern raised for HIT, briefly on Argatroban, now on IV heparin gtt HIT [place] Ab negative
#Mild Thrombocytopenia
-HIT negative
-monitor
# Hyperglycemia-continue sliding scale coverage and NovoLog 3 units AC with Accu-Cheks
#Bleeding around HD catheter, 04/04/25
-Area cleaned, ongoing bleeding noted from one of the stitches. Stitch removed, after injecting lidocaine new stitch placed at a different location. Hemostasis achieved. Appreciate chief media officer
#Acute blood loss anemia with baseline chronic macrocytic anemia
Epistaxis and Hematuria
-transfuse for Hg < 7
-s/p 2 units PRBC morning 04/06 with appropriate response
#Epistaxis
-Previously evaluated by ENT, status post left NC packing. now removed. Appears deviated septum per ENT.
-s/p topical bacitracin course
-gentle nasal saline sprays in b/l nasal cavities 1-2 sprays each nostril 3-4 times daily per ENT
-recall ENT if rebleeding occurs
#Left Eye Subconjunctival Hemorrhage
-Developed overnight 04/03/25-04/04/25
-Continue to monitor
#Toxic metabolic encephalopathy likely secondary to shock versus ICU delirium versus hypoxemia versus uremia
-Appeared to be improving when off sedation
#Atrial fibrillation with rapid ventricular response
Permanent Atrial Fibrillation
-IV Heparin gtt
- Continue Metoprolol.
# Multifactorial Anemia- Iron studies noted from 03/26/25.
#Hyperglycemia from Prednisone
-Continue Insulin
#Diverticulosis
#Sacrum Stage 2 Pressure Injury
-Wound care
# Nutrition- DHT feeds in addition to diet- Appetite poor.
#Ex Smoker
#DVT PPX - IV heparin gtt
#Diet: Tube feeds
#Code status - Full Code
D/W RN at bed side
Medically complex. Watch closely.
Encourage activity.
Labs ordered for am
Labs reviewed from yesterday
Part of this note was created using voice recognition system. Occasional wrong word or��sound alike� substitutions may have inadvertently occurred due to the inherent limitations of voice recognition software. If noted kindly bring it to my
attention for correction.
Anticipated Discharge: > 48 hours
Subjective/Interval History
-
Date of Service: April 08, 2025
Objective Data
-
Labs:
Laboratory Results
04/08/25
05:24
WBC 16.7 H
Hgb 7.6 L
Hct 23.8 L
Plt Count 62 L D
APTT 108.7 H
Sodium 136
Potassium 4.2
Chloride 109 H
Carbon Dioxide 27
BUN 98 H
Creatinine 2.2 H
Glucose 123 H
Calcium 8.5
Vital Signs:
Vital Signs
Temp Pulse Resp BP Pulse Ox
97.5 F 92 20 130/66 96
04/08/25 07:41 04/08/25 09:00 04/08/25 09:00 04/08/25 09:00 04/08/25 09:00
I&O
04/07/25 04/08/25 04/09/25
06:59 06:59 06:59
Intake Total 1423 / 1455 1813 / 1870 371 / 371
Output Total 2540 / 2640 1580 / 1580 150 / 150
Balance -1117 / -1185 233 / 290 221 / 221
[2025-04-08 12:22] LABS: Glucose - Point of Care 211 mg/dl (70-99)
[2025-04-08] MEDS: HEPARIN 25000 UNITS/250 ML IV (12:35)
[2025-04-08] MEDS: NOVOLOG FLEXPEN-HIGH RESISTANCE 4 UNITS SC (12:44)
[2025-04-08 13:59] LABS: Vitamin B12 939 pg/ml (239-931)
--- NOTE | 2025-04-08 14:00 | PTCARENOTE ---
Assessment overall is unchanged. US of the L arm completed. Fed lunch- ate all of lunch as noted. No difficulty noted with swallowing but does tire with eating and requires being fed slowly. VS as documented. PT in to work with pt and again sat pt
on the side of the bed. Tires easily and again tends to want to keep his head down and need encouragement for any activity then he eventually will do it. Pts and family in to see pt and updated. Repositioned. Incont of a smear of stool. Caryn
care given. Call tao in reach.
--- NOTE | 2025-04-08 17:00 | PTCARENOTE ---
Dozing on and off this afternoon. Currently awake. C/O the same spot of pain on the L side of the chest with pt stating ' I can feel where they did the surgery'. Rates it an 8/. Medicated at pt request with Dilaudid 0.5 mg IV. Assessment otherwise
is unchanged. Difficulty with getting Bp's intermittently as not using L arm due to compression wrap and clot and R arm with midline. Was using calf but readings are varied. Did use R forearm to get BP and then removed cuff with reading on 111/68.
Respirs are unlabored at rest but does get winded with exertion. Sats are 96%. Turned and repositioned. Skin and mouth care given. Call tao in reach. Labs sent as ordered. Dinner ordered.
[2025-04-08 17:12] LABS: Hematocrit 23.3 % (39.0-52.0); Hemoglobin 7.0 g/dL (13.0-18.0); Mean Corp Hgb Conc. 30.0 g/dL (33.0-37.0); Mean Corpuscular Volume 101.3 fL (80.0-94.0); Nucleated Red Blood Cells % 0 % (-); Platelet Count 56 10^3/uL (130-400); Red Cell Dist. Width 18.6 % (11.5-14.5)
[2025-04-08 17:13] LABS: Glucose - Point of Care 171 mg/dl (70-99)
--- NOTE | 2025-04-08 18:15 | PTCARENOTE ---
Fed dinner. Overall good appetite but difficulty feeding himself. Repositioned. States L chest spot soreness is better. Dr. Genao updated on labs and blood ordered.
--- NOTE | 2025-04-08 18:45 | PTCARENOTE ---
1 unit PRBC hung via R wrist IV site. No changes in assessment
[2025-04-08] MEDS: MELATONIN 5 MG PO (21:06)
--- NOTE | 2025-04-08 21:30 | PTCARENOTE ---
pt Ox3, JEFFERSON c weakness, follows commands, denies pain, Afib/Flutter c pvcs, doppler pedals, +3 LUE karl wrapped, +1 RUE, lungs coarse, diminished @ bases, RA sats 96%, tachypneic, dyspnea c exertion, BSx4, inc stool, loose soft brown, R nare DHT
66cm, TF 20ml c 25ml H2O flush, Chronic esteves c yellow sarah output, skin per worklist, R midline, 20 R wrist, Hep 12 ml/hr, assisted dayshift RN hanging 1 unit of PRBC, CHG bath, call tao within reach, otherwise refer to documentation.
[2025-04-09] VITALS (29 sets, daily range): BP systolic 86–141; BP diastolic 47–83; PULSE 95; O2SAT 97; BMI 22.4
[2025-04-09 00:02] LABS: Glucose - Point of Care 189 mg/dl (70-99)
[2025-04-09] MEDS: DILAUDID 0.5 MG IV ×5 (00:28→23:20)
[2025-04-09 04:32] LABS: Blood Urea Nitrogen 92 mg/dl (9-20); Calcium 8.2 mg/dl (8.4-10.2); Carbon Dioxide 26 mmol/L (22-30); Chloride 108 mmol/L (98-107); Estimated Creatinine Clearance 29 ml/min; Glucose 144 mg/dl (70-99); Magnesium 1.9 mg/dl (1.6-2.3); Potassium 4.1 mmol/L (3.5-5.1); Sodium 135 mmol/L (135-145); eGFR 29.72
[2025-04-09 04:55] LABS: INR 1.04; PT 14.1 Sec (11.4-14.6)
[2025-04-09 04:56] LABS: Hematocrit 21.9 % (39.0-52.0); Hemoglobin 7.2 g/dL (13.0-18.0); Mean Corp Hgb Conc. 32.9 g/dL (33.0-37.0); Mean Corpuscular Volume 94.8 fL (80.0-94.0); Platelet Count 52 10^3/uL (130-400); Red Cell Dist. Width 18.5 % (11.5-14.5)
[2025-04-09 04:57] LABS: APTT 59.3 Sec (23.4-35.0)
[2025-04-09 05:23] LABS: Fibrinogen 523 MG/DL (199-459)
[2025-04-09] MEDS: HEPARIN 25000 UNITS/250 ML IV (08:34)
[2025-04-09] MEDS: NOVOLOG FLEXPEN-HIGH RESISTANCE 2 UNITS SC (09:06)
[2025-04-09] MEDS: NOVOLOG FLEXPEN 3 UNITS SC (09:07)
[2025-04-09 09:09] LABS: Glucose - Point of Care 165 mg/dl (70-99)
[2025-04-09] MEDS: DELTASONE 2.5 MG PO ×2 (09:11→20:32)
[2025-04-09] MEDS: SENOKOT-S 1 TABLET PO ×2 (09:12→20:32)
[2025-04-09] MEDS: LOW STRENGTH ASPIRIN 81 MG PO (09:12)
[2025-04-09] MEDS: LOPRESSOR 25 MG PO ×2 (09:12→20:32)
[2025-04-09] MEDS: DESENEX/MITRAZOL/ZEASORB 1 APPLIC TOPICAL ×2 (09:13→20:35)
[2025-04-09] MEDS: MIRALAX 17 GRAMS PO (09:13)
[2025-04-09] MEDS: OCEAN, SALINE MIST 1 SPRAYS NASAL ×3 (09:13→20:35)
[2025-04-09] MEDS: CELLCEPT 1000 MG PO ×2 (09:14→20:35)
--- NOTE | 2025-04-09 09:15 | W.PN.NEPH.PH ---
Today's Communication / Plan
-
Follow BMP
Assessment/Plan
-
This is a 79-year-old gentleman who follows in our office with Dr. Muhammad after donor renal transplant 2019 from [facility]. His transplant course has been complicated by development of nephrotic range proteinuria as well as recent
cellular rejection December of this year. The episodes treated with Solu-Medrol. His creatinine has risen quickly over time in the last several months. He has gone from a creatinine around 2 now up to 4.4. He was noted to have hydronephrosis of
the transplanted kidney recently on ultrasound as well as CT scan. Esteves catheter was placed by urology a few days ago. His appetite has been poor as of late. Recently he also developed fever and malaise and this has brought him to the emergency
room. He was noted to be febrile in the ER. Blood pressure was stable though lower than his home readings of 132. He was 100 systolic in the ER. Creatinine was 4.7 with elevated lactate level and elevated white count. CT of the abdomen and
pelvis were performed with suspicion for pyelonephritis of the transplant. We are asked to assist in management of his renal issues.
Assessment
Sepsis syndrome, possible pyelonephritis
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
donor renal transplant with FSGS, recent T-cell rejection
Obstructive uropathy, Esteves catheter in place
ELIZABETH..
Anemia
Hyponatremia
lactic acidosis
TAVR 04/06/25
AMBULATORY CARE-He had been making outpatient arrangements for eventual ESRD and transplant evaluation at [place]/previously on peritoneal dialysis prior to transfer
Plan
Status post TAVR 04/06/2025
No emergent HD needed
Remove dialysis catheter
follow CBC
last belatacept dose was 03/12 (450mg) would be due 04/09 and is ordered
continue pred/MMF
PT OT
Encourage oral intake
High risk situation
Cause of thrombocytopenia uncertain
-
-
Date of Service: April 09, 2025
CC / HPI / ROS
-
Chief Complaint:
Sepsis
History of Present Illness:
ELIZABETH/Cr stable 2.2
BPs stable remains off pressors
s/p CT chest 04/05 am
Hgb down to 7.2, transfused yesterday
on heparin gtt for PE, left upper arm DVT
plts still falling 52
Review of Systems:
non oliguric with esteves
no fever.
On tube feeding
Labs
-
Labs:
WBC 15.7 10^3/uL (4.8-10.8) H 04/09/25 03:43
RBC 2.31 10^6/uL (4.70-6.10) L 04/09/25 03:43
Hgb 7.2 g/dL (13.0-18.0) L 04/09/25 03:43
Hct 21.9 % (39.0-52.0) L 04/09/25 03:43
Plt Count 52 10^3/uL (130-400) L 04/09/25 03:43
Sodium 135 mmol/L (135-145) 04/09/25 03:43
Potassium 4.1 mmol/L (3.5-5.1) 04/09/25 03:43
Chloride 108 mmol/L (98-107) H 04/09/25 03:43
Carbon Dioxide 26 mmol/L (22-30) 04/09/25 03:43
BUN 92 mg/dl (9-20) H 04/09/25 03:43
Creatinine 2.2 mg/dL (0.7-1.3) H 04/09/25 03:43
eGFR 29.72 04/09/25 03:43
Glucose 144 mg/dl (70-99) H 04/09/25 03:43
Calcium 8.2 mg/dl (8.4-10.2) L 04/09/25 03:43
Phosphorus 4.9 mg/dl (2.5-4.5) H 04/09/25 03:43
Ypi-G-Zganiptowrn Pept 75268 pg/ml 04/08/25 16:55
Albumin 2.9 g/dl (3.5-5.0) L 04/04/25 15:44
Physical Exam
-
Vital Signs:
Vital Signs
Temp Pulse Resp BP Pulse Ox
97.8 F 104 14 124/49 92
04/09/25 07:32 04/09/25 06:00 04/09/25 06:00 04/09/25 06:00 04/09/25 06:00
Cardiovascular:: Irregular rate and rhythm (Tachycardic)
Respiratory:: Bilateral: Coarse
Lung Excursion:: Normal
Abdomen:: Nontender and Soft
Bowel Sounds:: Normal
Extremity Edema:: +1: Bilateral:
--- NOTE | 2025-04-09 09:25 | W.PN.HOSP.TC ---
Today's Communication/Plan
-
Elevate left upper extremity
Encourage out of bed to chair
Defer hemodialysis catheter management and nephrology
Vascular evaluation for the left upper extremity
Assessment / Plan
Assessment / Plan
79-year-old with history of renal transplant admitted with septic shock secondary to UTI, VDRF and acute renal failure. Unable to tolerate dialysis secondary to aortic stenosis therefore urgent TAVR performed on 04/06/2025.
DHT present
CVS: S1-S2 normal
Chest: CTA B/L, few rales at bases.
Abdomen: Soft, NT , Bowel sounds present
Extremities: LUE edema , ecchymosis dorsal arm
Ultrasound of the left upper extremity-short segment of nonocclusive thrombus in the left axillary vein
# Edema LUE- Taken the peripheral IV out. Elevate. Huan bandage was taken off as he has some more swelling in the dorsal hand today
#Severe aortic stenosis with cardiogenic shock
- RHC 03/30 indicates aortic stenosis as source of low cardiac output/cardiogenic shock.
- s/p cardiac cath 04/02/25 - non-obstructive CAD
- Decision made for more urgent TAVR in hopes of tolerating HD (see below)
- s/p TAVR CT work-up with incidental finding of PE (see below)
- He is s/p TAVR on 04/06
- Continue ASA 81 mg daily (received ASA 325 on 04/02/25)
- Appreciate CTS, Vegetable Buncher, Cardiology
#History of renal transplant in 2019 - donor renal transplant 2019 from [facility]
Acute on chronic renal failure requiring hemodialysis
-Recent Treatment for rejection in December.
-Cellcept resumed 03/30/25 nephrology
-On steroids -Prednisone 2.5 mg BID
-Belatacept ordered per renal for 04/09/25
-Required hemodialysis on admission, received multiple session, but due to poor tolerance of HD, 03/29/25, transitioned to CRRT. Line clotted, off CRRT since.
-On temporary hemodialysis catheter- ( may need to be taken out- defer to renal)
-HD attempt on 04/01/25 resulted in tachycardia and tachypnea during HD, Severe aortic stenosis likely limiting factor for hemodynamic instability during HD
-Losartan On Hold.
#Hydronephrosis of transplanted kidney
- Obstructive uropathy of transplant kidney, Disla placed 03/15/25
- Maintain Disla catheter
- Patient considering TURP
#Acute hypoxic respiratory failure requiring intubation 03/21-03/25
-Likely multifactorial secondary to pulmonary edema versus pneumonia versus interstitial lung disease
-s/p empiric high dose steroids for possible ILD, now on home prednisone
-with improvement in CXR post fluid removal with HD, may have been related to fluid; s/p RHC with PCWP 8 (post fluid removal)
-s/p antibiotic course for possible pneumonia
#Septic shock associated with acute kidney injury, lactic acidosis secondary to Klebsiella bacteremia likely secondary to urinary tract infection
Transplant kidney pyelonephritis with Klebsiella and E. faecalis
Immunosuppressed
-s/p 14 days IV antibiotics (completed 04/02/25)
-s/p pressor administration, now off
#Pneumomediastinum
#Pulmonary embolus within the posterior left lower lobe segmental pulmonary artery on CT Chest on 04/04/25
-Seen on CT Chest done in preparation for aortic valve surgery
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
-Short-segment left axillary vein thrombus-continue heparin as above (ultrasound ordered by cardiology)
- Elevate the arm-edema of the upper arm better with Huan bandage however edema of the hand is still the same or slightly worse therefore leave the Huan bandage off for now
- Vascular evaluation
#Mild Thrombocytopenia
-HIT negative
-monitor
# Hyperglycemia-continue sliding scale coverage and NovoLog 3 units AC with Accu-Cheks
#Bleeding around HD catheter, 04/04/25
-Area cleaned, ongoing bleeding noted from one of the stitches. Stitch removed, after injecting lidocaine new stitch placed at a different location. Hemostasis achieved. Appreciate airplane gastank liner assembler
#Acute blood loss anemia with baseline chronic macrocytic anemia
Epistaxis and Hematuria
-transfuse for Hg < 7
-s/p 7 units PRBC this admission last one being on 04/08/25
#Epistaxis
-Previously evaluated by ENT, status post left NC packing. now removed on 03/26/25. Appears deviated septum per ENT.
-Left nostril with Clot
-s/p topical bacitracin course
-gentle nasal saline sprays in b/l nasal cavities 1-2 sprays each nostril 3-4 times daily per ENT
-recall ENT if rebleeding occurs
#Left Eye Subconjunctival Hemorrhage
-Developed overnight 04/03/25-04/04/25
-Continue to monitor
#Toxic metabolic encephalopathy likely secondary to shock versus ICU delirium versus hypoxemia versus uremia
-Appeared to be improving when off sedation
#Atrial fibrillation with rapid ventricular response
Permanent Atrial Fibrillation
-IV Heparin gtt
- Continue Metoprolol.
# Multifactorial Anemia- Iron studies noted from 03/26/25.
#Diverticulosis
#Sacrum Stage 2 Pressure Injury
-Wound care
# Nutrition- DHT feeds in addition to diet- Appetite poor.
#Ex Smoker
#DVT PPX - IV heparin gtt
#Diet: Tube feeds
#Code status - Full Code
Medically complex. Watch closely.
Encourage activity. Very deconditioned.
Discussed with nursing at bedside
Discussed with nephrology at bedside
Reached out to Hematology as well.
Detailed discussion with the patient's and daughter on the phone. They had several questions all were answered.
Part of this note was created using voice recognition system. Occasional wrong word or��sound alike� substitutions may have inadvertently occurred due to the inherent limitations of voice recognition software. If noted kindly bring it to my
attention for correction.
Anticipated Discharge: > 48 hours
Subjective/Interval History
-
Date of Service: April 09, 2025
Objective Data
-
Labs:
Laboratory Results
04/09/25 04/09/25
03:43 11:30
WBC 15.7 H
Hgb 7.2 L
Hct 21.9 L
Plt Count 52 L
PT 14.1
INR 1.04
APTT 59.3 H Pending
Sodium 135
Potassium 4.1
Chloride 108 H
Carbon Dioxide 26
BUN 92 H
Creatinine 2.2 H
Glucose 144 H
Calcium 8.2 L
Vital Signs:
Vital Signs
Temp Pulse Resp BP Pulse Ox
97.8 F 120 14 124/49 92
04/09/25 07:32 04/09/25 09:12 04/09/25 06:00 04/09/25 06:00 04/09/25 06:00
I&O
04/08/25 04/09/25 04/10/25
06:59 06:59 06:59
Intake Total 1813 / 1870 2621 / 2681 120 / 120
Output Total 1580 / 1580 1400 / 1400
Balance 233 / 290 1221 / 1281 120 / 120
--- NOTE | 2025-04-09 10:11 | CON.VAS ---
Addendum entered and electronically signed by CHARLOTTE Evans 04/09/25 14:25:
Updated on-call attending Dr. Johann Disla III, when I received notification via TT that ultrasound was concerning for active extravasation, with collaboration of plan with on-call attending placed stat order for CT angiogram of left upper
extremity. CT results demonstrate, 'small amount of subtle extravasated contrast material along the volar aspect of the radius, adjacent to the radial artery.' Reviewed CT findings with vascular surgeon Dr. Suzie Magaña, reviewed physical exam
findings of edematous +2/3 left hand and forearm, however all forearm compartments are soft and compressible, +2 palpable left radial pulse, and warm left hand. Review of systems patient indicates he is in no pain or paresthesia at left hand and
forearm. Given his complex comorbidities (which include ESRD status post kidney transplant with recent ELIZABETH, atrial fibrillation, PE, nonocclusive DVT in left upper extremity axillary vein, status post TAVR, thrombocytopenia with platelets today at
52, and anemia) and his current stable physical exam and review of systems would recommend a conservative management at this time. Reviewed holding heparin with quality rn, hospitalist, and shuttle route vehicle operator over [employer] text, all gave okay to hold
heparin for 6 hours. Additionally, will transfuse 1 unit platelets. Left upper extremity Huan wrap for compression. Keep patient ICU level status in order to implement every hour neurovascular checks. N.p.o. except for sips of water in case
patient's physical exam indicates worsening active bleeding and then would need to review surgical options with patient and family. Attending Dr. Suzie Magaña was in agreement with above plan. Reviewed plan with patient who understands, will
update family.
Addendum entered and electronically signed by Johann Disla III, MD 04/09/25 10:41:
This patient was seen and examined in collaboration with CHARLOTTE Evans. I agree with the history and physical exam as well as the assessment and plan. I have the following additions:
Medically complex patient with multiple medical comorbidities
Consulted for left arm edema
On physical examination he has diffuse circumferential ecchymosis and edema involving his left hand, wrist and forearm
His left upper arm is completely soft and nontender
His left shoulder is soft and nontender
Upon communication with his nurse we learned that he had a arterial line and a peripheral IV removed recently. He is on systemic anticoagulation. The edema and ecchymosis started after these were removed.
He has a palpable left radial pulse
Pitting edema of the left hand and forearm
On exam this is subcutaneous edema. He does not have tight muscle compartments in the left forearm and is only mildly tender to palpation.
Venous duplex reviewed which shows short segment nonocclusive left axillary vein DVT
The left arm edema, which is confined to the forearm, wrist and hand, it is unlikely to be related to the short segment nonocclusive left axillary vein DVT especially given that the upper arm is not edematous. I suspect the current edema and
ecchymosis is related to removal of the peripheral IV and arterial line. It seems as though this is temporally related. Continue systemic anticoagulation for the left axillary vein DVT. We have ordered an arterial duplex of the left arm to rule
out radial artery pseudoaneurysm given recent A-line removal. If this is negative we will recommend symptom management with gentle Huan wrap compression from the fingers to the elbow, arm elevation and pain control. Please call with any questions
or concerns.
Signed:
Johann Disla III, MD
Vascular Surgery
[facility]
Original Note:
Consultation
Consultation Request
Date/Time Consultation Performed: 04/09/25 1010
Requesting Provider: Hospitalist
Performing Provider: Millie Diaz NP-C for Johann Disla III, MD
Reason for Consultation: Left upper extremity nonocclusive DVT
Medical History
-
Chief Complaint: Left upper extremity swelling
History of Present Illness:
This is a 79-year-old male with significant past medical history for ESRD status post kidney transplant, anemia, atrial fibrillation, hypertension, BPH, chronic back pain, pulmonary nodule, aortic stenosis, and dyslipidemia who presented to the ED
on 03/18/2025 reporting fever and malaise. He was ultimately admitted for management of sepsis secondary to pyelonephritis with ELIZABETH. He has had a complex hospital course including reinitiation of HD and urgent TAVR. Per discussion with nurse and
chart review patient had a left radial arterial line and forearm peripheral IV which was removed roughly 2 days ago, following removal of IV and radial art line patient was noted to have +3 edema of left forearm and hand prompting venous ultrasound
which resulted in nonocclusive DVT of the left upper extremity axillary vein. He has been on anticoagulation via heparin infusion. Vascular surgery has been consulted in regards to nonocclusive DVT finding. Currently at bedside patient endorses
no pain at left upper extremity but does report being bothered by edema. He denies pain, coolness, or paresthesia of left hand.
Past Medical History
Past Medical History: Other (ESRD status post kidney transplant, anemia, atrial fibrillation, hypertension, BPH, chronic back pain, pulmonary nodule, aortic stenosis, and dyslipidemia)
Past Surgical History: Other (Renal transplant, TAVR)
Social History
Tobacco: Non-Smoker
Personal:
Allergies / Home Medications
Allergy/AdvReac Type Severity Reaction Status Date / Time
No Known Drug Allergies Allergy - Verified 03/18/25 16:11
�Medication �Instructions �Recorded �Confirmed �Type
apixaban 5 mg tablet (Eliquis) 5 mg PO BID Blood Clot 08/11/18 03/19/25 History
Prevention/Tx
metoprolol tartrate 25 mg tablet 25 mg PO BID Blood Pressure 03/14/20 03/19/25 History
mycophenolate sodium 180 mg 720 mg PO BID Transplant 03/14/20 03/19/25 History
tablet,delayed release
amlodipine 5 mg tablet 5 mg PO DAILY Blood Pressure 10/04/22 03/19/25 History
cholecalciferol (vitamin D3) 10 10 mcg PO DAILY Supplement 10/04/22 03/19/25 History
mcg (400 unit) capsule (Vitamin D3)
belatacept 250 mg intravenous 450 mg IV QMONTH Transplant 07/22/23 03/19/25 History
solution
doxazosin 2 mg tablet 2 mg PO BID Urinary Issue 07/22/23 03/19/25 History
losartan 50 mg tablet 50 mg PO BID Blood Pressure 07/22/23 03/19/25 History
prednisone 2.5 mg tablet 2.5 mg PO BID Transplant 07/22/23 03/19/25 History
therapeutic multivitamin 1 tab PO DAILY Supplement 07/22/23 03/19/25 History
torsemide 5 mg tablet 5 mg PO SUWE Fluid 02/12/25 03/19/25 History
Retention/Swelling
fluticasone propionate 50 1 spray intranasal BID Allergies 03/24/25 03/24/25 History
mcg/actuation nasal
spray,suspension
sodium chloride 0.65 % nasal spray 2 spray intranasal QID Allergies 03/24/25 03/24/25 History
aerosol
Review of Systems
-
Unable to obtain full review of systems at this time due to: Acuity
History Source: Patient
Constitutional: Reports No Symptoms
EENT: Reports No Symptoms
Respiratory: Reports No Symptoms
Musculoskeletal: Reports Edema (Left upper extremity forearm and hand)
Skin: Reports Other (Ecchymosis of left forearm)
Physical Exam
Vital Signs
Temp Pulse Resp BP Pulse Ox
97.8 F 120 28 120/65 96
04/09/25 07:32 04/09/25 09:12 04/09/25 09:00 04/09/25 08:00 04/09/25 08:00
Lab Results
04/09/25 03:43
04/09/25 03:43
[id number] Pept [id number] pg/ml 04/08/25 16:55
Physical Exam
General: No Apparent Distress and Comfortable
HEENT: Normocephalic and Atraumatic
Respiratory: Non Labored Respirations
Cardiac: Irregular Rhythm; Negative JVD
GI: Non Distended
Musculoskeletal: Edema (Left upper extremity forearm and hand with +3 edema, all compartments soft, upper arm soft with no swelling, radial pulse +2 palpable, left hand warm)
Skin: Warm and Other (Left forearm with ecchymosis)
Neuro: Awake and Alert (Oriented to self but unclear of recent medical events)
Assessment / Plan
-
Assessment: 79-year-old male admitted for management of sepsis status post urgent TAVR, developed left upper extremity forearm and hand swelling following removal of left radial arterial line and peripheral IV. Venous ultrasound demonstrating
nonocclusive left axillary vein.
Plan:
No indication for surgical intervention of nonocclusive venous DVT of upper extremity, recommend continued medical management of anticoagulation
Suspect left forearm swelling is likely more related to hematoma development following removal of either left radial line or peripheral IV, for completeness sake will obtain left upper extremity arterial venous to rule out pseudoaneurysm
Recommend continued Huan wrap with mild compression from fingertips to elbow, can be removed at night or for patient comfort
Recommend elevation of left upper extremity
Reviewed recommendations with hospitalist via [employer] text
Patient seen and examined with Dr. Johann Disla III, above plan reviewed with attending.
--- NOTE | 2025-04-09 10:35 | W.PN.PUL3 ---
Today's Communication / Plan
-
- Vascular surgery consulted for left upper extremity arterial bleed in the setting of thrombocytopenia and anemia with BM suppression
- Defer surgical intervention decision to vascular surgery
- Keep NPO p MN in case he needs OR tomorrow
- Defer AC to vascular surgery; trend aPTT, avoid supratherapeutic levels
- Trend H&H, transfusion to keep >7-8 g deciliter, and keep platelet count >50k
- Of note, TOBIAS panel negative; follow up Vitamin B1 level to see if contributing to his BM suppression (low reticulocyte production index of 1.1; normal is >2)
- Continue buspar given he appears depressed
- s/p TAVR on 04/06 - tolerated procedure well with no immediate complications
- Continue chronic prednisone and MMF
- Defer HD/CRRT for now as he is nonoliguric; trend sCr and UOP; currently no need for HD per nephro
- Goal BG >100 and <180
- Continue heparin gtt
- Hematology consulted - may need to consider BM biopsy if anemia and TCP persist to eval for BM disorder (i.e. aplastic anemia vs other infiltrative process)
- I touched base with ENT on 04/08 to make them aware of his continued worsening anemia; continue to monitor for epistaxis while using Afrin as needed with dissolvable gauzes
Continue IMU level of care; Pulmonary service to continue to follow; may need upgrade to ICU for frequent neurovascular checks, in which case victim advocate service will co-manage.
Assessment
-
79-year-old male with a 1 pack year smoking history, hypertension, nephrolithiasis, pulmonary nodule, atrial fibrillation, and renal transplantation on mycophenolate and prednisone with recent ultrasound showing transplant hydronephrosis presented
with 2 days of fever found to be septic with ELIZABETH-victim advocate consulted for sepsis/shock/ELIZABETH 03/20/2025, now with shock state resolved, hypoxia markedly improved and he is s/p TAVR on 04/06/2025, and downgraded out of ICU to IMU on 04/07, where he is
continuing to be managed. Pulmonary service now continuing to follow along.
#1. Septic shock due to UTI/acute pyelonephritis, with Klebsiella bacteremia - shock state resolved
- He remains HDN stable
- ID service recs appreciated - they signed off on 04/02, completed IV Unasyn on 04/02 - monitor off ABx while trending WBC and monitoring temperature curve
- Klebsiella and Enterococcus in urine culture from 03/18/2025
- Doing well off pressors
#2. Acute hypoxic respiratory failure
- Patient was intubated 03/21, extubated 03/25, and continued to require supplemental oxygen however he has markedly improved, and has been on room air for few days now
- Keep SpO2 >90-94%
- Aspiration precautions
- Bilateral interstitial opacities, basal predominant with interseptal thickening, suggestive of pulmonary edema vs interstitial lung disease
- Patient has baseline mild reticular changes on imaging suggestive of mild fibrosis, recent CT was with significant worsening
- Patient has severe aortic stenosis, poor tolerance of HD with significant uremia, fluid overload also was in differential diagnosis
- ILD exacerbation cannot be ruled out, patient empirically started on high-dose IV steroids on 03/28, gradually weaning since, last dose of prednisone 04/04 (20mg)
- 03/30, RHC with PCWP only 8, also f/u CXR with improved interstitial opacities more suggestive of improving pulmonary edema rather than ILD
- Mild pneumomediastinum noted on imaging, suspect related to intubation and mechanical ventilation, stable on recent CT TAVR
#3. ELIZABETH with hydronephrosis of transplanted kidney - now nonoliguric; last HD session 04/01 (did not tolerate)
- Severe pyelonephritis as well as obstructive uropathy with severe hydronephrosis in the right lower quadrant transplanted kidney noted on imaging (CT A/P from 04/04/2025); [place] kidneys are severely atrophic
- s/p Disla catheter placement
- Patient had been initiated on hemodialysis (last HD session on 04/01, which he did not tolerate)
- Due to poor tolerance of HD, 03/29, transitioned to CRRT
- History of renal transplant in 2019. MMF has been resumed on 03/30 per nephrology service; patient to start belatacept on 04/09, per nephrology
- 03/30, With low PCWP and low filling pressure, and improving CXR, patient received 1 ltr IVF
- 03/31, urine output marginally improved, creatinine continues to be high, BUN continues to climb
- 04/01, IR guided dialysis catheter exchanged in right IJ, scheduled for HD trial. [place] during dialysis, patient became tachycardic, tachypneic with respiratory distress, prematurely had to end hemodialysis followed by clinical improvement.
- Interestingly, EPO levels were 13 on 03/10/2025 (reference range: 4�27 mU/mL)
- Nephro to hold off on HD as of 04/07, as he remains nonoliguric and sCr is improving
#4. Epistaxis involving left nare s/p rapid Rhino via ENT - rapid rhino removed as of 03/26
- 04/04 had another episode of self-limiting epistaxis. Currently on heparin gtt
- If there are additional drops in Hb with concern for continued nose bleed, then would contact ENT to re-eval the pt as he may need rapid rhino again vs cauterization of his left nare
#5. History of pulmonary nodules and baseline mild ILD
- Review of prior imaging shows mild reticular changes mostly in the posterior and basal area
- Concerning for chronic ILD versus early fibrotic changes with prior history of COVID-19
- Patient follows up with Dr. Olivarez at [facility] pulmonary clinic.
- Connective tissue disease panel negative with normal ROXANNE and rheumatoid factor levels.
- Worsening interstitial/ground glass opacities via CT chest from 03/28, which has persisted on CT TAVR from 04/04, with concern for LD exacerbation (high inflammatory markers with ESR 94, CRP 269 on 03/28); less like volume overload as LHC 3 days
prior on 04/02 showed normal LVEDP at 9mmHg, and RHC on 03/30/2025 showed normal PCWP of 8mmHg.
#6. Atrial fibrillation with rapid ventricular response/A-flutter
- Rate controlled as of 04/08
- Continue metoprolol as tolerated
- Eliquis on hold, currently on heparin infusion
#7. Severe with cardiogenic shock s/p right transfemoral TAVR with 26 mm Santana Resilia TAVR valve (OR date: 04/06/2025)
- RHC 03/2025, PCWP 8, CI 1.9, SVR 1526.
- 04/03, left heart cath without any significant coronary artery disease.
- Continue heparin gtt with eventual TRX back to Eliquis once clinically safe to do so from bleeding/anemia standpoint
#8. Bleeding around HD catheter, 04/04 - resolved
- There had been ongoing oozing noted around HD catheter site, unresponsive to local pressure - -> surgicel placement + pressure bag applied
- Area cleaned, ongoing bleeding noted from one of the stitches. Stitch removed, after injecting lidocaine new stitch placed at a different location. Hemostasis achieved. No further ongoing bleeding noted.
#9. LLL Pulmonary embolism, 04/04, newly detected; LUE DVT (new on 04/08/2025)
- Patient has had interruption of anticoagulation this admission due to epistaxis
- CT on 04/04 suggestive of small left lower lobe pulmonary embolism, patient currently on room air, saturating well not on any respiratory distress
- LE duplex negative for DVT (04/05)
- Left upper extremity duplex US on 04/08/2025 showed a short segment nonocclusive thrombus involving axillary vein
- Continue heparin gtt, and trend Hb and aPTT; transfuse blood products if needed to keep Hb>7-8g/dL, plt>50k (given post-operative status and unstable anemia with recent nose bleed); keep INR<1.8
#10. Anemia and thrombocytopenia
- Due to bone marrow suppression in setting of critical illness with recent pyelonephritis with sepsis, and persisting now with hemorrhage into left upper extremity
- Patient's reticulocyte production index checked on 04/08/2025 and is low at 1.1, indicating inadequate bone marrow response, in this case, his renal failure is contributing; B12 and B1 levels are pending; folate has already been checked on
03/19/2025 and is normal; b12 levels were 400 on 03/19/2025; iron saturation was normal on 03/26/2025, at 21% despite low iron and low TIBC levels
- Heparin associated platelet antibody negative (collected 04/04/2025)-prior - -> 4T score was elevated at 4, hence argatroban was stopped on 04/05 after being started on 04/04
- Cautiously continue heparin drip
- Transfuse blood products as stated above
#11. Left forearm hematoma with hemorrhage
- Possibly related to recent PIV insertion +/- A-line insertion while on systemic AC and in setting of TCP; small foci of extravasated contrast seen within the soft tissues at the level of the left mid forearm adjacent to the radial artery
consistent with a mild active hemorrhage
- The arterial US also from today shows active arterial extravasation into the left forearm with associated hematoma; no evidence of a pseudoaneurysm seen
- Vascular surgery has already been consulted -appears that the left arm swelling and bruising started after a peripheral IV and left radial arterial line were removed
- No foreseen acute surgical intervention required at this time but ultimate decision will be deferred to vascular surgery
- Continue with neurovascular checks as currently the left radial pulses palpable; continue with gentle Huan wrap compression from the finger to the elbow with arm elevation and pain control
Conditions present prior to admission:
Hx of ESRD s/p renal transplantation-[facility]-follows at [facility]-Dr. Hines and locally Dr. Muhammad
Permanent atrial fibrillation/Eliquis.
Hypertension.
BPH.
Postherpetic neuralgia.
Chronic back pain.
Pulmonary nodule right base with negative PET followed by Dr. Olivarez
Fatty liver.
Inguinal hernia
Osteoporosis.
Hernia repair.
Cataract 2020. Transplant kidney December 2018.
DVT prophylaxis: on heparin gtt
Stress ulcer prophylaxis: N/A
FEES 03/29. on pur�ed diet
Previous [facility] discussions: Prognosis unfortunately poor with multiorgan dysfunction-goals of care discussion reviewed on 03/23 with the patient's daughters and with Dr. Genao; they understand that he is critically ill but they would like to
continue full medical management for now and are not interested in withdrawal care. As of 03/24, given that his mental status has improved, I recommend to continue with full aggressive management considering that he is improving. Unfortunately as
of 03/25, he continues to be hypoxic and severely deconditioned after extubation. Goals of care discussion held with Dr. Genao, and the and daughter on 03/25. They would like to continue with full medical care, as the feels that this
is what Johann would have wanted. I also discussed this goals of care with the patient himself and he says to 'do what ever is needed' at this time.
The patient last saw Dr. Olivarez 03/08/2025 for ILD, restrictive lung disease and pulmonary nodule-has appointment for PFT 04/28/2025 at 3 PM [address] appointment [address] Dr[address] Olivarez 04/29/2025 at 11:15 AM
Pulmonary service will continue to follow along while he is managed in IMU. Depending on vascular surgery recommendations, he may need to be upgraded back to the ICU for frequent neurovascular checks. If he is upgraded, then [employer] service
will continue to follow along in ICU.
Office note Dr. Olivarez 03/08/2025 in regards to pulmonary nodule:
CT imaging August 2024 revealed approximately 1.3 cm nodular opacity in the right base, not present on previous exam.
Underwent a repeat CT in November 2024 Showed resolution of previously seen right basilar nodule but a new 1.4 cm nodule in the right lower lobe.
Underwent a PET scan 12/17/2024 which showed evolution of right lower lobe nodule, now presenting as large ground glass nodule measuring up to 3.9 cm. Highly suggestive of benign infectious/inflammatory process.
Repeat CT 02/2025: now demonstrate bilateral peribronchiolar ground glass infiltrate bilaterally.Unclear etiology, differential Dx includes inflammatory/infectious process vs pulmonary edema.there is evidence of small bilateral pleural effusions,
with history of aortic stenosis pulmonary edema except possibility.With ongoind immunosupresion will need to keep in my oportunistic infection.
Will obtain ILD serology, proBNP and inflmmatory markers.
Bronchoscopy with BAL may be required-if there is no evidence of volume overload.-Of note He was treated with an antibiotic and steroids middle of October 2024. He denies any active Symptoms suggesting infection.If He does produce any phlegm, we will
submit sputum culture
Diagnostic data:
CT Chest 03/28/2025- Mild pneumomediastinum, with superior extension into the fat at the base of the neck, as well as at the posterior and lateral aspect of the right mid to upper thorax.
Diffuse bilateral interstitial and groundglass opacity. This could be related to fluid associated with interstitial and pulmonary edema related to volume overload or congestive heart failure. Alternatively, findings may be infectious in nature
related to atypical or viral pneumonitis. No focal dense consolidation.
Chest x-ray 03/18/2025-severe chronic inflammatory interstitial pneumonitis
CT abdomen and pelvis 03/18/2025-severe acute edema and inflammation around right lower quadrant renal transplantation, severe hydronephrosis, severe bilateral atrophic [place] kidneys, small bilateral pleural effusions, increased coarse interstitial
markings throughout both lower lobes, right middle lobe with severe chronic inflammatory interstitial pneumonitis
ILD serology 03/10/2025-negative rheumatoid factor, ROXANNE, SSA antibodies, scleroderma antibody, proteinase [address] chest 02/23/2025 Reviewed Uriel Leong 03/08/2025 06:25:26 AM EDT >1. Resolution of previously seen right lower lobe 1.4 cm nodule.2. Mild to moderate changes of pulmonary fibrosis as seen previously.3. Superimposed upon the changes of
fibrosis, there is new large amount of bilateralperibronchovascular interstitial and groundglass opacity with small amount of bilateral upper lungairspace consolidation as detailed above. There are very small bilateral pleural effusions. Whileedema
is a differential consideration, findings are more suggestive of a superimposed infectious orinflammatory process. There is associated mild mediastinal adenopathy.-
PET CT 12/17/2024 reviewed: Uriel Leong 03/08/2025 06:25:44 AM EDT >The previously seen solid right lower lobe nodule has evolved/changed in morphology, nowpresenting as a large groundglass nodule measuring up to 3.9 cm which demonstrates
max SUV 4.7(delayed 5.4). Otherwise, no suspicious FDG avid lesions.ABDOMEN and PELVIS:No suspicious FDG-avid lesions.SKELETON:No suspicious FDG-avid lesions.This suggests inflammatory process.-
CT chest 2023: Reviewed Uriel Leong 07/05/2023 08:49:26 AM >1. No significant acute abnormality identified in the chest within the limits of unenhanced CT, asdescribed above. Probable residual fibrotic changes in the lungs, less
likely active pneumonitis.-
CT chest 02/27/2023: Reviewed Uriel Leong 03/06/2023 08:42:39 AM >There has been significant further improvement in the patient's bilateral parenchymal airspacedisease when compared with the previous examinations.Currently, there is mild
left and moderate diffuse coarsening of the interstitial markingsthroughout both lungs which at this point may be residual scarring/fibrosis rather than acute inflammatory disease.There is mild cardiomegaly. There is atherosclerosis-
CT chest 11/23/2022: showed evidence of postinflammatory fibrosis. Groundglass opacities have resolved..
Pulmonary function testing ( 07/13/2024� ):FEV1: 3.4 L-107%FVC:3.96 L-89%FEV1/FVC ratio:86%T.52 L-73%RV:44%ERV:RV/TLC ratio:23%DLCO: 13.69-50%DLCO/VA: 70%
Echo 05/19/24: Normal biventricular size and function. EF 65%. Severely dilated LA. Paradoxical low flow low gradient aortic stenosis. Mild AR.
Total time spent today was 56 minute for this encounter. Time includes reviewing laboratory tests/imaging results, reviewing pertinent medical records, obtaining and reviewing medical history, performing an appropriate physical exam, ordering
medications, tests and procedures. Time also includes documentation of this encounter, coordinating patient care and communicating with other healthcare professionals. Total time does not include separately billed tests or procedures performed on
this date of service.
Subjective Data
-
Date of Service:
Date of Service: April 09, 2025
Chief Complaint: Pulmonary Follow Up
Subjective:
Patient was seen and evaluated this morning. Afebrile overnight. Transfused 1 unit PRBC yesterday evening with inappropriate rise of hemoglobin. Bruising seen in his left arm with worsening edema. No other areas of bleeding seen with no obvious
nosebleeding, no hematuria or hematochezia. He remains hemodynamically stable although heart rate slightly worse today in the 100-110s.
Review of Systems
General: Other (Negative unless mentioned above)
Objective Data
Data Reviewed
Vital Signs / I&O / Oxygen:
Vital Signs
Temp Pulse Resp BP Pulse Ox
97.8 F 120 28 120/65 96
04/09/25 07:32 04/09/25 09:12 04/09/25 09:00 04/09/25 08:00 04/09/25 08:00
Intake and Output
04/08/25 04/09/25 04/10/25
06:59 06:59 06:59
Intake Total 1813 / 1870 2621 / 2681 120 / 120
Output Total 1580 / 1580 1400 / 1400 200 / 200
Balance 233 / 290 1221 / 1281 -80 / -80
SaO2 [ASV] 98
SaO2 [A/C] 96
SaO2 [NIV (Non Invasive 97
Ventilation)]
SaO2 96
Nasal Cannula flow liters per 2
minute
Physical Exam
General: Respiratory Distress (negative), Comfortable, Chills (negative), Sweats (negative) and Other (Elderly male, in NAD; significantly deconditioned)
HEENT: Normocephalic, Anicteric and Other (Dried blood seen in left nare)
Cardiovascular: Irregular Rhythm, Peripheral Edema (+1 lower extremity pitting edema bilaterally) and Other (Tachycardic)
Respiratory: Wheeze (negative), Crackles (Bibasilar), Rhonchi (negative) and Non-Labored Respirations
GI: Soft, Non Distended, Non Tender, Normal Bowel Sounds and NG Tube (DHT via right nare)
Neurology: Tremors (negative) and Other (Somnolent today although easily arousable to voice)
Skin: Warm, Dry, Cyanosis (negative), Jaundice (negative) and Bruising (Left upper extremity)
Labs/Micro/Reports
Lab Data
04/09/25 03:43
04/09/25 03:43
Laboratory Results
04/09/25
03:43
PT 14.1
INR 1.04
APTT 59.3 H
--- NOTE | 2025-04-09 11:05 | W.PN.ONC ---
Today's Communication / Plan
-
See updated plan.
Impression
Impression
Thrombocytopenia, multifactorial, persistent
ESRD s/p failed transplant 2019
Afib on Eliquis
Urosepsis complicated by Klebsiella bacteremia and acute renal failure
Severe complicated by cardiogenic shock
New small PE on 04/04 CT chest
Acute blood loss anemia
Plan
Plan
Unclear cause of persistent moderately severe thrombocytopenia. Will repeat heparin antibody study. None of his other drugs seem particularly suspect. He is far enough out from his sepsis that his platelets should have started the rebound, but
they can occasionally be somewhat slow. Will check labs for hemolysis, although a microangiopathic process seems unlikely. His platelets are adequate enough that the heparin can be continued for now. The nonocclusive thrombosis in his left
axillary vein is most likely related to his critical illness earlier during the hospitalization. We will continue to follow.
Subjective/Objective
Subjective/Objective
He is feeling reasonably well. He reports no bleeding. Examination is unchanged.
Vital Signs:
Vital Signs
Temp Pulse Resp BP Pulse Ox
97.8 F 101 20 116/62 95
04/09/25 07:32 04/09/25 10:00 04/09/25 10:00 04/09/25 10:00 04/09/25 10:00
Lab Results:
Laboratory Data
WBC 15.7 10^3/uL (4.8-10.8) H 04/09/25 03:43
Hgb 7.2 g/dL (13.0-18.0) L 04/09/25 03:43
Plt Count 52 10^3/uL (130-400) L 04/09/25 03:43
PT 14.1 Sec (11.4-14.6) 04/09/25 03:43
INR 1.04 04/09/25 03:43
APTT 59.3 Sec (23.4-35.0) H 04/09/25 03:43
eGFR 29.72 04/09/25 03:43
Orders
Orders
Orders From Last 24 Hours
04/09/25 10:56
Heparin Associated Platelet Ab [S] Urgent
LDH Urgent
Total Bilirubin Urgent
[2025-04-09 12:01] LABS: APTT 88.8 Sec (23.4-35.0)
--- NOTE | 2025-04-09 12:09 | W.PN.CD ---
Today's Communication / Plan
-
Stable from a cardiovascular standpoint.
Continue aspirin.
Impression / Plan
-
Impression/Plan: 79M with prior renal transplant in 2019 presenting with septic shock and ELIZABETH now on CRRT with inability to tolerate iHD, now status post TF TAVR 04/06/2025.
#Aortic stenosis, severe:
-Chronic, progressive, low flow, low(lm) gradient.
-Concern that severe was contributing to shock and failure to tolerate HD.
-s/p TF TAVR with Shu S3 Ultra 26 mm valve (Ric/Santo, 04/06/25).
-Telemetry shows atrial flutter, rate controlled.
-Antithrombotic therapy with apixaban on hold. Continue aspirin in the mean time.
-Post TTE shows stable valve, normal gradients, no effusion.
#ELIZABETH on CKD
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
-Residual renal function is minimal (some urine production) but nephrology feels that renal function will likely not meaningfully recover.
-Nephrology following
#Acute respiratory failure:
-History of ILD, has been stable as outpatient.
-CT scan 03/28/25: Mild pneumomediastinum, with superior extension into the fat at the base of the neck, as well as at the posterior and lateral aspect of the right mid to upper thorax. Diffuse bilateral interstitial and groundglass opacity. This
could be related to fluid associated with interstitial and pulmonary edema related to volume overload or congestive heart failure. Alternatively, findings may be infectious in nature related to atypical or viral pneumonitis. No focal dense
consolidation. On IV steroids. On IV abx.
-Extubated, minimal O2.
-LVEDP 18 mmHg during TAVR (04/06/2025).
#Permanent AFIB:
-Chronic, stable.
-Rate control with metoprolol. HR ~ 100.
-CHADS2-Vasc = 4 (CHF, HTN, Age x2).
-Apixaban transitioned to heparin, then argatroban given concern for HIT. Transition back to DOAC delayed in light of anemia/thrombocytopenia.
#Anemia/Thrombocytopenia:
-Acute on chronic, multifactorial.
-No obvious clinical bleeding.
-2U pRBCs before TAVR --> with appropriate response but continues to drift (6.4 --> 8.7 --> 8.9 --> 7.6).
-Platelets = 117 --> 112 --> 106 --> 97 --> 87 --> 62. Heparin associated platelet antibody negative, but platelets continue to fall with resumption of heparin.
-Macrocytic. Transfusion would have repleted Fe stores (also ferritin 1550 on 03/19/2025). B12, folate normal on 03/19/2025. Check thiamine, reticulocytes.
-There is LUE edema with ecchymosis. We will check a LUE US.
-Current 4Ts score = 3-4 which is intermediate (>50% platelet fall, maddi > 20k, TAVR within 3 days - but the thrombocytopenia predates this; platelet fall 5-10 days after starting heparin, again 1 day after restarting with prior exposure),
possibly high if there is RUE venous thrombosis.
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 If the patient does have DVT, it would be reasonable to consider a serotonin release assay based on discordant TARI and 4T score.
#Hypertension
-Chronic, stable
Subjective/Interval History:
Patient very weak working with PT
DATA:
Echo 03/23/25:
SUMMARY
1. Normal biventricular size and systolic function.
2. Severe aortic stenosis, mean 39 mmHg and estimated SHU 0.46 cmsq. Aortic valve assessment may be affected by anemia (Hgb 7.5).
3. Severe left atrial enlargement.
4. Compared to echocardiogram dated 05/19/2024 the gradient across the aortic valve has increased from 29 mmHg, the aortic valve area was estimated at 0.9 cmsq. The Hgb in 05/2024 was 15.
TAVR, 04/06/2025:
CONCLUSION: Successful placement of a 26 mm Santana Shu 3 Ultra RESILIA transcatheter aortic valve via right transfemoral approach with no acute complications.
Echo, 04/06/2025:
SUMMARY
1. Normal biventricular size and function without wall motion abnormality.
2. LVEF is 60-65% by visual estimation.
3. S/p 26 mm Santana TAVR valve. Mean gradient 4 mmHg. Trivial aortic regurgitation.
4. Limited interrogation of other valves.
5. Compared to prior from March 23, 2025, now status post TAVR valve.
Echo, 04/07/2025:
SUMMARY
1. Limited echocardiogram. HORACIO performed 04/06/2025.
2. Normal biventricular size and systolic function.
3. Biatrial enlargement.
4. The TAVR is well-seated without aortic regurgitation. Mean gradient 7 mmHg.
5. No significant change since echocardiogram performed immediately after HORACIO.
Physical Exam
Vital Signs/Labs
Vital Signs
Temp Pulse Resp BP Pulse Ox
97.8 F 101 20 116/62 95
04/09/25 07:32 04/09/25 10:00 04/09/25 10:00 04/09/25 10:00 04/09/25 10:00
04/08/25 04/09/25 04/10/25
06:59 06:59 06:59
Actual Weight 164 lb 3.91 oz 165 lb 5.547 oz
04/09/25 03:43
04/09/25 03:43
PT 14.1 Sec (11.4-14.6) 04/09/25 03:43
INR 1.04 04/09/25 03:43
APTT 88.8 Sec (23.4-35.0) H 04/09/25 11:40
Magnesium 1.9 mg/dl (1.6-2.3) 04/09/25 03:43
Triglycerides 220 mg/dl (10-149) H 03/27/25 03:27
03/19/25 03/26/25 03/28/25
23:51 03:21 03:28
Qvy-I-Eavhfejlbrd Pept > [id number]
04/08/25
16:55
Aey-K-Awxgbztsmfr Pept [id number]
Physical Exam
Constitutional: No acute distress and Comfortable
Cardiovascular: Rhythm & rate is regular, Pedal edema is absent, S1S2 is normal and Murmur/rub/gallop absent
Respiratory: Respiratory effort normal and Crackles Present
Data Reviewed
-
Date of Service: April 09, 2025
Medical Decision Making: Reviewed Test Results, Test Interpretation and Review of Case with other Provider
EKG: Tracing Personally Visualized and interpreted
Echo: Report Reviewed by me
Labs: Labs Reviewed by me
[2025-04-09 12:40] LABS: Glucose - Point of Care 134 mg/dl (70-99)
--- NOTE | 2025-04-09 12:47 | PTCARENOTE ---
Addendum entered by Pia Mena RN 04/09/25 12:47:
Dr. Sherwood ok with patient receiving contrast as there was a concern for an arterial bleed on the ultrasound. Bicarb IVF ordered.
Order for removal of HD cath canceled at this time.
Original Note:
Patient brought down to CT of [facility]. Dr. Sherwood made aware
[2025-04-09] MEDS: NOVOLOG FLEXPEN SC ×2 (12:57→17:30)
[2025-04-09] MEDS: NOVOLOG FLEXPEN-HIGH RESISTANCE SC ×2 (12:57→17:30)
[2025-04-09] MEDS: SODIUM BICARBONATE 1150 MEQ IV (13:03)
[2025-04-09 13:32] LABS: LDH 389 U/L (120-246)
[2025-04-09] MEDS: [UNRECOGNIZED DRUG - OTHER] 100 MG IV (14:14)
--- NOTE | 2025-04-09 14:46 | CM ---
F/U: Patient might still be on HD, but likely to stop (?), patient still being monitored, plan is SNF, referrals made so waiting on patient to be closer to [place]. PLAN: SNF when ready.
--- NOTE | 2025-04-09 15:17 | PTCARENOTE ---
1 unit of platelets initiated. and daughter at bedside and updated by Millie Diaz. All questions answered.
Pt NPO. Plan to restart heparin gtt at 1999. Q1 hour Neuro vascular checks. Pt is ICU status.
[2025-04-09 17:39] LABS: Glucose - Point of Care 126 mg/dl (70-99)
--- NOTE | 2025-04-09 18:00 | PTCARENOTE ---
Patient is forgetful and drowsy. Need encouragement to move in bed. Weak in all extremities; PT saw patient earlier today. LUE remains wrapped in KRISSY wrap. Neurovascular checks q1 [address]. Afib on tele. RA, Sp02 WNL. DHT remains in place,
flushed. TF on hold at this time. Disla catheter with cloudy sarah urine. Patient has been repositioned Q2 hours with pillows and air cushion. PRN Dilaudid provided for back and sternum pain. Swallowed pills whole with applesauce w/o issues. RUE
midline dressing intact. Right IJ dressing intact, changed today by VAT. Tolerated 1 unit of platelets. Call tao within reach.
--- NOTE | 2025-04-09 20:00 | PTCARENOTE ---
Assumed care, pt Ox3, JEFFERSON and follows commands, denies pain, Afib/Flutter on the monitor c PVCs, + radials, doppler pedals, +3 LUE, +1 RUE, lungs diminished and coarse, sats 96% RA, dyspnea on exertion, BSx4 inc stool, intermittent hiccups, R nare
DHT 66cm, TF on hold per order, L nare crusted with blood with what appears to be a gauze inside, Chronic Disla c sarah output, skin per worklist, groin site dry and intact, LUE karl wrapped and elevated, 20G RAC, R midline, Bicarb gtt 75ml/hr @
start of shift with Hep gtt on hold per order, @ 1999 bicarb gtt stopped and Hep gtt started per order, call tao within reach, otherwise refer to documentation.
[2025-04-09] MEDS: TYLENOL 650 MG PO (20:32)
[2025-04-09] MEDS: MELATONIN 5 MG PO (20:35)
[2025-04-09] MEDS: NOVOLOG FLEXPEN-HIGH RESISTANCE 1 UNITS SC (23:21)
[2025-04-09 23:27] LABS: Glucose - Point of Care 117 mg/dl (70-99)
[2025-04-10] VITALS (31 sets, daily range): BP systolic 100–146; BP diastolic 52–93; BMI 22.6
--- NOTE | 2025-04-10 00:33 | PTCARENOTE ---
systems reviewed, small soft BM, CHG bath, Dilaudid per MAR, otherwise refer to documentation
--- NOTE | 2025-04-10 03:24 | PTCARENOTE ---
systems reviewed, labs sent, pt c/o soreness in finger on L hand due to KRISSY wrap, removed KRISSY wrap, wrist to elbow purple/blue, no loss in sensation, moves freely without pain, [employer] @ bedside also assessing, parts of arm remain firm, hand remains
swollen with no improvement from KRISSY wrap, per [employer] WORK[employer] HEL[employer] able to leave unwrapped for an hour at patients request and then rewrap, dilaudid given per JUL, otherwise refer to documentation
[2025-04-10 03:38] LABS: APTT 91.4 Sec (23.4-35.0)
[2025-04-10 04:01] LABS: Hematocrit 19.6 % (39.0-52.0); Hemoglobin 6.5 g/dL (13.0-18.0); Mean Corp Hgb Conc. 33.2 g/dL (33.0-37.0); Mean Corpuscular Volume 93.3 fL (80.0-94.0); Platelet Count 59 10^3/uL (130-400); Red Cell Dist. Width 18.2 % (11.5-14.5)
[2025-04-10] MEDS: DILAUDID 0.5 MG IV ×3 (04:09→20:36)
[2025-04-10 04:25] LABS: Albumin 2.2 g/dl (3.5-5.0); Blood Urea Nitrogen 90 mg/dl (9-20); Calcium 8.2 mg/dl (8.4-10.2); Carbon Dioxide 26 mmol/L (22-30); Chloride 108 mmol/L (98-107); Estimated Creatinine Clearance 30 ml/min; Glucose 90 mg/dl (70-99); Potassium 4.2 mmol/L (3.5-5.1); Sodium 137 mmol/L (135-145); eGFR 31.43
[2025-04-10 04:27] LABS: INR 1.11; PT 14.4 Sec (11.4-14.6)
[2025-04-10] MEDS: NOVOLOG FLEXPEN-HIGH RESISTANCE 1 UNITS SC ×3 (05:57→22:03)
[2025-04-10] MEDS: HEPARIN 25000 UNITS/250 ML IV ×2 (05:58→21:15)
[2025-04-10 06:07] LABS: Glucose - Point of Care 111 mg/dl (70-99)
[2025-04-10] MEDS: NOVOLOG FLEXPEN SC (07:12)
[2025-04-10] MEDS: DELTASONE 2.5 MG PO ×2 (07:31→20:37)
[2025-04-10] MEDS: CELLCEPT 1000 MG PO ×2 (07:31→21:16)
[2025-04-10] MEDS: MIRALAX 17 GRAMS PO (07:31)
[2025-04-10] MEDS: LOW STRENGTH ASPIRIN 81 MG PO (07:32)
[2025-04-10] MEDS: LOPRESSOR 25 MG PO ×2 (07:32→20:36)
[2025-04-10] MEDS: SENOKOT-S 1 TABLET PO ×2 (07:32→20:37)
[2025-04-10] MEDS: OCEAN, SALINE MIST 1 SPRAYS NASAL ×3 (07:33→21:11)
[2025-04-10] MEDS: DESENEX/MITRAZOL/ZEASORB 1 APPLIC TOPICAL ×2 (07:33→20:59)
--- NOTE | 2025-04-10 07:35 | W.PN.VS ---
Today's Communication / Plan
-
as above
Assessment/Plan
-
Patient s/p L mid forearm a line placement and now forearm swelling. 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 Fortunately he remains asymptomatic and has no signs of active bleeding. Based on his comorbidities and skin/tissue integrity
I do not think operating is an option for him. Will ask IR to comment, may need to repeat ultrasound. No intervention for today, ok for diet.
Subjective Data
-
Date of Service: April 10, 2025
Patient without any complaints this am other than a sore throat. Denies any forearm or hand pain, no numbness or weakness
Objective Data
-
Vital Signs
Temp Pulse Resp BP Pulse Ox
97.9 F 97 11 138/69 96
04/10/25 07:27 04/10/25 07:32 04/10/25 07:00 04/10/25 07:32 04/10/25 07:00
Intake and Output
04/09/25 04/10/25 04/11/25
06:59 06:59 06:59
Intake Total 2621 / 2681 1712 / 1727
Output Total 1400 / 1400 1325 / 1325
Balance 1221 / 1281 387 / 402
Intake:
Oral fluids 750 / 750
IV fluids (Total) 291 / 306 755 / 770
Bicarb 575 / 575
Heparin 291 / 306 180 / 195 15
IV piggybacks 100 / 100
Tube feeding 480 / 500 40 / 40
Feeding tube flush amount 600 / 625 50 / 50
Blood Products 250 / 250 250 / 250
Packed red blood cells 250 / 250 250 / 250
Blood Product Amount Infused ( 250 / 250 517 / 517
mL)
Packed Rbc Leukoreduced Unit 250 / 250
[id number]
Packed Rbc Leukoreduced Unit 250 / 250
[id number]
Pathogen Redu Plt Leukored 267 / 267
Unit [id number]
Output:
Urine, Disla 1400 / 1400 1325 / 1325
Lab Results
04/10/25 03:02
04/10/25 03:02
Calcium 8.2 mg/dl (8.4-10.2) L 04/10/25 03:02
Phosphorus 6.0 mg/dl (2.5-4.5) H 04/10/25 03:02
Magnesium 1.9 mg/dl (1.6-2.3) 04/09/25 03:43
Total Bilirubin 0.6 mg/dl (0.2-1.3) 04/09/25 11:40
Direct Bilirubin 0.5 mg/dl (0.0-0.4) H 04/09/25 03:43
AST 26 U/L (17-59) 04/04/25 15:44
ALT 39 U/L (0-50) 04/04/25 15:44
Alkaline Phosphatase 84 U/L (38-126) 04/04/25 15:44
Total Protein 5.3 g/dl (6.3-8.2) L 04/04/25 15:44
Albumin 2.2 g/dl (3.5-5.0) L 04/10/25 03:02
Physical Exam
-
NAD
Entire forearm bruised, very thin friable skin
Forearm soft, ?small area of induration
+motor/sensation in hand
+radial, ulnar and palmar arch signal
[2025-04-10 07:42] LABS: Glucose - Point of Care 108 mg/dl (70-99)
--- NOTE | 2025-04-10 08:00 | PTCARENOTE ---
Received pt @ change of shift. Pt. drowsy, awakens to verbal stim; ox3; flat and forgetful @ x's; denies pain. A fib on monitor. SpO2 96% on RA. +BS, abd soft/round. R nare dobhoff in place; clamped; TF on hold. Inc small BM. Disla in place
draining sarah urine. LUE +3 edema/ecchymotic; KRISSY removed w vascular , Dr. Magaña- palpable radial pulse/sensation intact- see flow sheet. #20 R FA patent, dressing c/d/i. R midline w heparin gtt- see flow sheet. Complete AM hygiene. Pt.
assisted w active repositioning in bed. Call tao placed w in reach.
--- NOTE | 2025-04-10 08:01 | W.PN.INTV ---
Today's Communication / Plan
Recommendations
- Vascular surgery consulted for left upper extremity arterial bleed in the setting of thrombocytopenia and anemia with BM suppression - -> no surgical intervention rec'd at this time
- Cautiously continue heparin gtt AC; trend aPTT, avoid supratherapeutic levels
- Trend H&H, transfusion to keep >7-8 g/dL and keep platelet count >50k
- Of note, TOBIAS panel negative - heme repeated (pending); follow up Vitamin B1 level to see if contributing to his BM suppression (low reticulocyte production index of 1.1; normal is >2)
- Continue buspar
- s/p TAVR on 04/06 - tolerated procedure well with no immediate complications
- Continue chronic prednisone and MMF
- Defer HD/CRRT for now as he is nonoliguric; trend sCr and UOP; currently no need for HD per nephro
- Goal BG >100 and <180
- Consider BM biopsy if anemia and TCP persist to eval for BM disorder (i.e. aplastic anemia vs other infiltrative process)
- I touched base with ENT on 04/08 to make them aware of his continued worsening anemia; continue to monitor for epistaxis while using Afrin as needed with dissolvable gauzes
Given the continued q1hr neurovascular checks of left upper extremity, continue with ICU level of care for this critically ill patient.
Assessment
-
79-year-old male with a 1 pack year smoking history, hypertension, nephrolithiasis, pulmonary nodule, atrial fibrillation, and renal transplantation on mycophenolate and prednisone with recent ultrasound showing transplant hydronephrosis presented
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
continuing to be managed. Pulmonary service now continuing to follow along.
#1. Septic shock due to UTI/acute pyelonephritis, with Klebsiella bacteremia - shock state resolved
- He remains HDN stable
- ID service recs appreciated - they signed off on 04/02, completed IV Unasyn on 04/02 - monitor off ABx while trending WBC and monitoring temperature curve
- Klebsiella and Enterococcus in urine culture from 03/18/2025
- Doing well off pressors
#2. Acute hypoxic respiratory failure
- Patient was intubated 03/21, extubated 03/25, and continued to require supplemental oxygen however he has markedly improved, and has been on room air for few days now
- Keep SpO2 >90-94%
- Aspiration precautions
- Bilateral interstitial opacities, basal predominant with interseptal thickening, suggestive of pulmonary edema vs interstitial lung disease
- Patient has baseline mild reticular changes on imaging suggestive of mild fibrosis, recent CT was with significant worsening
- Patient has severe aortic stenosis, poor tolerance of HD with significant uremia, fluid overload also was in differential diagnosis
- ILD exacerbation cannot be ruled out, patient empirically started on high-dose IV steroids on 03/28, gradually weaning since, last dose of prednisone 04/04 (20mg)
- 03/30, RHC with PCWP only 8, also f/u CXR with improved interstitial opacities more suggestive of improving pulmonary edema rather than ILD
- Mild pneumomediastinum noted on imaging, suspect related to intubation and mechanical ventilation, stable on recent CT TAVR
#3. ELIZABETH with hydronephrosis of transplanted kidney - now nonoliguric; last HD session 04/01 (did not tolerate)
- Severe pyelonephritis as well as obstructive uropathy with severe hydronephrosis in the right lower quadrant transplanted kidney noted on imaging (CT A/P from 04/04/2025); [place] kidneys are severely atrophic
- s/p Disla catheter placement
- Patient had been initiated on hemodialysis (last HD session on 04/01, which he did not tolerate)
- Due to poor tolerance of HD, 03/29, transitioned to CRRT
- History of renal transplant in 2019. MMF has been resumed on 03/30 per nephrology service; patient to start belatacept on 04/09, per nephrology
- 03/30, With low PCWP and low filling pressure, and improving CXR, patient received 1 ltr IVF
- 03/31, urine output marginally improved, creatinine continues to be high, BUN continues to climb
- 04/01, IR guided dialysis catheter exchanged in right IJ, scheduled for HD trial. [place] during dialysis, patient became tachycardic, tachypneic with respiratory distress, prematurely had to end hemodialysis followed by clinical improvement.
- Interestingly, EPO levels were 13 on 03/10/2025 (reference range: 4�27 mU/mL)
- Nephro to hold off on HD as of 04/07, as he remains nonoliguric and sCr has improved and is now stable (peak sCr: 5.8)
#4. Epistaxis involving left nare s/p rapid Rhino via ENT - rapid rhino removed as of 03/26
- 04/04 had another episode of self-limiting epistaxis. Currently on heparin gtt
- If there are additional drops in Hb with concern for continued nose bleed, then would contact ENT to re-eval the pt as he may need rapid rhino again vs cauterization of his left nare
#5. History of pulmonary nodules and baseline mild ILD
- Review of prior imaging shows mild reticular changes mostly in the posterior and basal area
- Concerning for chronic ILD versus early fibrotic changes with prior history of COVID-19
- Patient follows up with Dr. Olivarez at [facility].
- Connective tissue disease panel negative with normal ROXANNE and rheumatoid factor levels.
- Worsening interstitial/ground glass opacities via CT chest from 03/28, which has persisted on CT TAVR from 04/04, with concern for LD exacerbation (high inflammatory markers with ESR 94, CRP 269 on 03/28); less like volume overload as LHC 3 days
prior on 04/02 showed normal LVEDP at 9mmHg, and RHC on 03/30/2025 showed normal PCWP of 8mmHg.
#6. Atrial fibrillation with rapid ventricular response/A-flutter
- Rate controlled as of 04/08
- Continue metoprolol as tolerated
- Eliquis on hold, currently on heparin infusion
#7. Severe with cardiogenic shock s/p right transfemoral TAVR with 26 mm Santana Resilia TAVR valve (OR date: 04/06/2025)
- RHC 03/2025, PCWP 8, CI 1.9, SVR 1526.
- 04/03, left heart cath without any significant coronary artery disease.
- Continue heparin gtt with eventual TRX back to Eliquis once clinically safe to do so from bleeding/anemia standpoint
#8. Bleeding around HD catheter, 04/04 - resolved
- There had been ongoing oozing noted around HD catheter site, unresponsive to local pressure - -> surgicel placement + pressure bag applied
- Area cleaned, ongoing bleeding noted from one of the stitches. Stitch removed, after injecting lidocaine new stitch placed at a different location. Hemostasis achieved. No further ongoing bleeding noted.
#9. LLL Pulmonary embolism, 04/04, newly detected; LUE DVT (new on 04/08/2025)
- Patient has had interruption of anticoagulation this admission due to epistaxis
- CT on 04/04 suggestive of small left lower lobe pulmonary embolism, patient currently on room air, saturating well not on any respiratory distress
- LE duplex negative for DVT (04/05)
- Left upper extremity duplex US on 04/08/2025 showed a short segment nonocclusive thrombus involving axillary vein
- Continue heparin gtt, and trend Hb and aPTT; transfuse blood products if needed to keep Hb>7-8g/dL, plt>50k (given post-operative status and unstable anemia with recent nose bleed); keep INR<1.8
#10. Anemia and thrombocytopenia
- Due to bone marrow suppression in setting of critical illness with recent pyelonephritis with sepsis; also recent arterial hemorrhage into left upper extremity
- Patient's reticulocyte production index checked on 04/08/2025 and is low at 1.1, indicating inadequate bone marrow response, in this case, his renal failure is contributing; B12 and B1 levels are pending; folate has already been checked on
03/19/2025 and is normal; b12 levels were 400 on 03/19/2025; iron saturation was normal on 03/26/2025, at 21% despite low iron and low TIBC levels
- Heparin associated platelet antibody negative (collected 04/04/2025) - -> 4T score was elevated at 4, hence argatroban was stopped on 04/05 after being started on 04/04
- Heme re-ordered TOBIAS panel - -> follow up
- Cautiously continue heparin drip
- Transfuse blood products as stated above
#11. Left forearm hematoma with hemorrhage
- Possibly related to recent PIV insertion +/- A-line insertion while on systemic AC and in setting of TCP; small foci of extravasated contrast seen within the soft tissues at the level of the left mid forearm adjacent to the radial artery
consistent with a mild active hemorrhage
- Arterial US showed active arterial extravasation into the left forearm with associated hematoma; no evidence of a pseudoaneurysm seen
- Vascular surgery consulted -appears that the left arm swelling and bruising started after a peripheral IV and left radial arterial line were removed
- No acute surgical intervention required at this time
- Continue with neurovascular checks; left radial pulse remains palpable; continue with gentle Huan wrap compression from the finger to the elbow with arm elevation and pain control
Conditions present prior to admission:
Hx of ESRD s/p renal transplantation-[facility] 2018-follows at [facility]-Dr. Hines and locally Dr. Muhammad
Permanent atrial fibrillation/Eliquis.
Hypertension.
BPH.
Postherpetic neuralgia.
Chronic back pain.
Pulmonary nodule right base with negative PET followed by Dr. Olivarez
Fatty liver.
Inguinal hernia
Osteoporosis.
Hernia repair.
Cataract 2020. Transplant kidney December 2018.
DVT prophylaxis: on heparin gtt
Stress ulcer prophylaxis: N/A
FEES 03/29. on pur�ed diet with tube feeds given insufficient oral intake
Previous GOC discussions: Prognosis unfortunately poor with multiorgan dysfunction-goals of care discussion reviewed on 03/23 with the patient's daughters and with Dr. Genao; they understand that he is critically ill but they would like to
continue full medical management for now and are not interested in withdrawal care. As of 03/24, given that his mental status has improved, I recommend to continue with full aggressive management considering that he is improving. Unfortunately as
of 03/25, he continues to be hypoxic and severely deconditioned after extubation. Goals of care discussion held with Dr. Genao, and the and daughter on 03/25. They would like to continue with full medical care, as the feels that this
is what Johann would have wanted. I also discussed this goals of care with the patient himself and he says to 'do what ever is needed' at this time.
The patient last saw Dr. Olivarez 03/08/2025 for ILD, restrictive lung disease and pulmonary nodule-has appointment for PFT 04/28/2025 at 3 PM [address] appointment [address] Dr[address] Olivarez 04/29/2025 at 11:15 AM
Given the continued q1hr neurovascular checks of left upper extremity, continue with ICU level of care for this critically ill patient.
Critical care statement: A total of 43 minutes of critical care time was provided for this patient today. This includes management of unstable vital signs, evaluation of the patient at bedside, reviewing the patient�s pertinent medical records
including radiographs, microbiology, laboratory evaluations, and��discussion with primary team, consultants, pharmacy, nutrition, physical therapy, case management, charge nurse, critical care nursing, and respiratory therapy.
Office note Dr. Olivarez 03/08/2025 in regards to pulmonary nodule:
CT imaging August 2024 revealed approximately 1.3 cm nodular opacity in the right base, not present on previous exam.
Underwent a repeat CT in November 2024 Showed resolution of previously seen right basilar nodule but a new 1.4 cm nodule in the right lower lobe.
Underwent a PET scan 12/17/2024 which showed evolution of right lower lobe nodule, now presenting as large ground glass nodule measuring up to 3.9 cm. Highly suggestive of benign infectious/inflammatory process.
Repeat CT 02/2025: now demonstrate bilateral peribronchiolar ground glass infiltrate bilaterally.Unclear etiology, differential Dx includes inflammatory/infectious process vs pulmonary edema.there is evidence of small bilateral pleural effusions,
with history of aortic stenosis pulmonary edema except possibility.With ongoind immunosupresion will need to keep in my oportunistic infection.
Will obtain ILD serology, proBNP and inflmmatory markers.
Bronchoscopy with BAL may be required-if there is no evidence of volume overload.-Of note He was treated with an antibiotic and steroids middle of October 2024. He denies any active Symptoms suggesting infection.If He does produce any phlegm, we will
submit sputum culture
Diagnostic data:
CT Chest 03/28/2025- Mild pneumomediastinum, with superior extension into the fat at the base of the neck, as well as at the posterior and lateral aspect of the right mid to upper thorax.
Diffuse bilateral interstitial and groundglass opacity. This could be related to fluid associated with interstitial and pulmonary edema related to volume overload or congestive heart failure. Alternatively, findings may be infectious in nature
related to atypical or viral pneumonitis. No focal dense consolidation.
Chest x-ray 03/18/2025-severe chronic inflammatory interstitial pneumonitis
CT abdomen and pelvis 03/18/2025-severe acute edema and inflammation around right lower quadrant renal transplantation, severe hydronephrosis, severe bilateral atrophic [place] kidneys, small bilateral pleural effusions, increased coarse interstitial
markings throughout both lower lobes, right middle lobe with severe chronic inflammatory interstitial pneumonitis
ILD serology 03/10/2025-negative rheumatoid factor, ROXANNE, SSA antibodies, scleroderma antibody, proteinase [address] chest 02/23/2025 Reviewed Uriel Leong 03/08/2025 06:25:26 AM EDT >1. Resolution of previously seen right lower lobe 1.4 cm nodule.2. Mild to moderate changes of pulmonary fibrosis as seen previously.3. Superimposed upon the changes of
fibrosis, there is new large amount of bilateralperibronchovascular interstitial and groundglass opacity with small amount of bilateral upper lungairspace consolidation as detailed above. There are very small bilateral pleural effusions. Whileedema
is a differential consideration, findings are more suggestive of a superimposed infectious orinflammatory process. There is associated mild mediastinal adenopathy.-
PET CT 12/17/2024 reviewed: Uriel Leong 03/08/2025 06:25:44 AM EDT >The previously seen solid right lower lobe nodule has evolved/changed in morphology, nowpresenting as a large groundglass nodule measuring up to 3.9 cm which demonstrates
max SUV 4.7(delayed 5.4). Otherwise, no suspicious FDG avid lesions.ABDOMEN and PELVIS:No suspicious FDG-avid lesions.SKELETON:No suspicious FDG-avid lesions.This suggests inflammatory process.-
CT chest 2023: Reviewed Uriel Leong 07/05/2023 08:49:26 AM >1. No significant acute abnormality identified in the chest within the limits of unenhanced CT, asdescribed above. Probable residual fibrotic changes in the lungs, less
likely active pneumonitis.-
CT chest 02/27/2023: Reviewed Uriel Leong 03/06/2023 08:42:39 AM >There has been significant further improvement in the patient's bilateral parenchymal airspacedisease when compared with the previous examinations.Currently, there is mild
left and moderate diffuse coarsening of the interstitial markingsthroughout both lungs which at this point may be residual scarring/fibrosis rather than acute inflammatory disease.There is mild cardiomegaly. There is atherosclerosis-
CT chest 11/23/2022: showed evidence of postinflammatory fibrosis. Groundglass opacities have resolved..
Pulmonary function testing ( 07/13/2024� ):FEV1: 3.4 L-107%FVC:3.96 L-89%FEV1/FVC ratio:86%T.52 L-73%RV:44%ERV:RV/TLC ratio:23%DLCO: 13.69-50%DLCO/VA: 70%
Echo 05/19/24: Normal biventricular size and function. EF 65%. Severely dilated LA. Paradoxical low flow low gradient aortic stenosis. Mild AR.
Subjective Dataa
Subjective Data
Date of Service:
Date of Service: April 10, 2025
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
Subjective:
Patient upgraded to ICU yesterday for frequent neurovascular checks regarding left upper extremity due to mild forearm arterial hemorrhage. Patient this morning is doing well, denying any particular complaint. He was afebrile overnight. Currently
saturating 95% on room air with BP 117/68 and heart rate 90.
Review of Systems
General: Other (Negative unless mentioned above)
Objective Data
Data Reviewed
Vital Signs / I&O / Oxygen:
Vital Signs
Temp Pulse Resp BP Pulse Ox
97.9 F 88 16 133/64 97
04/10/25 07:27 04/10/25 09:00 04/10/25 09:00 04/10/25 09:00 04/10/25 09:00
Intake and Output
04/09/25 04/10/25 04/11/25
06:59 06:59 06:59
Intake Total 2621 / 2681 1712 / 1727 105 / 105
Output Total 1400 / 1400 1325 / 1325 225 / 225
Balance 1221 / 1281 387 / 402 -120 / -120
SaO2 [ASV] 98
SaO2 [A/C] 96
SaO2 [NIV (Non Invasive 97
Ventilation)]
SaO2 97
Nasal Cannula flow liters per 2
minute
Physical Exam
General: Respiratory Distress (negative), Comfortable, Chills (negative) and Sweats (negative)
HEENT: Normocephalic, Anicteric and Other (packed gauze with dried blood seen in left nare)
Cardiovascular: Irregular Rhythm (Irregularly irregular), Murmur (negative) and Peripheral Edema (+1 lower extremity pitting edema bilaterally (pedal))
Respiratory: Wheeze (n), Crackles (Bibasilar), Rhonchi (n), Non-Labored Respirations and Stridor (n)
GI: Soft, Non Distended, Non Tender and Normal Bowel Sounds
Neurology: Awake, Alert, Oriented and Tremors (negative)
Skin: Warm, Dry, Cyanosis (n), Jaundice (n), Rash (n) and Bruising (Left upper extremity, which is covered with Huan bandage)
Labs/Micro/Reports
Lab Data
04/10/25 03:02
04/10/25 03:02
Laboratory Results
04/09/25 04/09/25 04/10/25
11:40 17:40 03:02
PT 14.4
INR 1.11
APTT 88.8 H Cancelled 91.4 H
--- NOTE | 2025-04-10 08:25 | W.PN.CD ---
Today's Communication / Plan
-
Ongoing anemia requiring pRBCs
CV stable
Impression / Plan
-
Impression/Plan: 79M with prior renal transplant in 2019 presenting with septic shock and ELIZABETH now on CRRT with inability to tolerate iHD, now status post TF TAVR 04/06/2025.
#Aortic stenosis, severe:
-s/p TF TAVR with Shu S3 Ultra 26 mm valve (Ric/Santo, 04/06/25).
-Telemetry shows atrial flutter, rate controlled.
-Antithrombotic therapy with apixaban on hold--> Anemia requiring transfusion : Continue aspirin in the mean time.
-Post TTE shows stable valve, normal gradients, no effusion.
#ELIZABETH on CKD
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
-Residual renal function is minimal (some urine production) but nephrology feels that renal function will likely not meaningfully recover.
-Nephrology following
#Acute respiratory failure:
-History of ILD, has been stable as outpatient.
-CT scan 03/28/25: Mild pneumomediastinum, with superior extension into the fat at the base of the neck, as well as at the posterior and lateral aspect of the right mid to upper thorax. Diffuse bilateral interstitial and groundglass opacity. This
could be related to fluid associated with interstitial and pulmonary edema related to volume overload or congestive heart failure. Alternatively, findings may be infectious in nature related to atypical or viral pneumonitis. No focal dense
consolidation. On IV steroids. On IV abx.
-Extubated, minimal O2.
-LVEDP 18 mmHg during TAVR (04/06/2025).
#Permanent AFIB:
-Chronic, stable.
-Rate control with metoprolol. HR ~ 100.
-CHADS2-Vasc = 4 (CHF, HTN, Age x2).
-Apixaban transitioned to heparin, then argatroban given concern for HIT. Transition back to DOAC delayed in light of anemia/thrombocytopenia.
#Anemia/Thrombocytopenia:
-Acute on chronic, multifactorial.
-No obvious clinical bleeding.
-2U pRBCs before TAVR --> with appropriate response but continues to drift (6.4 --> 8.7 --> 8.9 --> 7.6).
-Platelets = 117 --> 112 --> 106 --> 97 --> 87 --> 62. Heparin associated platelet antibody negative, but platelets continue to fall with resumption of heparin.
-Macrocytic. Transfusion would have repleted Fe stores (also ferritin 1550 on 03/19/2025). B12, folate normal on 03/19/2025. Check thiamine, reticulocytes.
-There is LUE edema with ecchymosis. We will check a LUE US.
-Current 4Ts score = 3-4 which is intermediate (>50% platelet fall, maddi > 20k, TAVR within 3 days - but the thrombocytopenia predates this; platelet fall 5-10 days after starting heparin, again 1 day after restarting with prior exposure),
possibly high if there is RUE venous thrombosis.
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 If the patient does have DVT, it would be reasonable to consider a serotonin release assay based on discordant TARI and 4T score.
#Hypertension
-Chronic, stable
Subjective/Interval History:
Patient very weak working with PT
DATA:
Echo 03/23/25:
SUMMARY
1. Normal biventricular size and systolic function.
2. Severe aortic stenosis, mean 39 mmHg and estimated SHU 0.46 cmsq. Aortic valve assessment may be affected by anemia (Hgb 7.5).
3. Severe left atrial enlargement.
4. Compared to echocardiogram dated 05/19/2024 the gradient across the aortic valve has increased from 29 mmHg, the aortic valve area was estimated at 0.9 cmsq. The Hgb in 05/2024 was 15.
TAVR, 04/06/2025:
CONCLUSION: Successful placement of a 26 mm Santana Shu 3 Ultra RESILIA transcatheter aortic valve via right transfemoral approach with no acute complications.
Echo, 04/06/2025:
SUMMARY
1. Normal biventricular size and function without wall motion abnormality.
2. LVEF is 60-65% by visual estimation.
3. S/p 26 mm Santana TAVR valve. Mean gradient 4 mmHg. Trivial aortic regurgitation.
4. Limited interrogation of other valves.
5. Compared to prior from March 23, 2025, now status post TAVR valve.
Echo, 04/07/2025:
SUMMARY
1. Limited echocardiogram. HORACIO performed 04/06/2025.
2. Normal biventricular size and systolic function.
3. Biatrial enlargement.
4. The TAVR is well-seated without aortic regurgitation. Mean gradient 7 mmHg.
5. No significant change since echocardiogram performed immediately after HORACIO.
Physical Exam
Vital Signs/Labs
Vital Signs
Temp Pulse Resp BP Pulse Ox
97.9 F 97 11 138/69 96
04/10/25 07:27 04/10/25 07:32 04/10/25 07:00 04/10/25 07:32 04/10/25 08:10
04/09/25 04/10/25 04/11/25
06:59 06:59 06:59
Actual Weight 165 lb 5.547 oz 166 lb 7.184 oz
04/10/25 03:02
04/10/25 03:02
PT 14.4 Sec (11.4-14.6) 04/10/25 03:02
INR 1.11 04/10/25 03:02
APTT 91.4 Sec (23.4-35.0) H 04/10/25 03:02
Magnesium 1.9 mg/dl (1.6-2.3) 04/09/25 03:43
Triglycerides 220 mg/dl (10-149) H 03/27/25 03:27
03/19/25 03/26/25 03/28/25
23:51 03:21 03:28
Ojd-Z-Mnwvcboacmw Pept > 98338 00000 [id number]
04/08/25
16:55
Csq-Z-Yiurwgbvwnl Pept [id number]
Physical Exam
Constitutional: No acute distress and Comfortable
Cardiovascular: Rhythm/rate is irregular and S1S2 is normal
Respiratory: Respiratory effort normal
GI: Soft
Neuro/Psych: AO x 3
Data Reviewed
-
Date of Service: April 10, 2025
Medical Decision Making: Reviewed Test Results
EKG: Tracing Personally Visualized and interpreted (af)
Echo: Report Reviewed by me
Labs: Labs Reviewed by me
--- NOTE | 2025-04-10 08:27 | W.PN.HOSP.TC ---
Today's Communication/Plan
-
see plan
appreciate consultants
Assessment / Plan
Assessment / Plan
79-year-old with history of end-stage renal disease status post kidney transplant 2019 on antirejection medications, hypertension, hyperlipidemia, atrial fibrillation on Eliquis, urinary retention status post catheter placement several days prior to
admission presenting to the emergency department with fever and chills as well as weakness, admitted for sepsis secondary to transplant pyelonephritis, acute renal failure of transplanted kidney with development of acute hypoxic respiratory failure,
inability to tolerate HD secondary to severe and now s/p TAVR 04/06.
Left Upper Extremity Hematoma
-swelling started after removaL PIV; arterial line in setting of thrombocytopenia/AC
-arterial US/angiogram with active extravasation in left forearm with associated hematoma
-appreciate Vascular surgery input - based on comorbidities/skin tissue integrity trying to avoid surgical intervention - continue karl bandage wrap and compression
Thrombocytopenia
-HIT panel testing was negative; IV heparin gtt resumed with drop in PLT down to 50's
-appreciate Heme eval, HIT ab testing repeated
-s/p 1 unit PLT in setting of bleeding
Acute blood loss anemia
-Hg down to 6.5 this AM and 1 unit PRBC ordered
Severe aortic stenosis with cardiogenic shock
- RHC 03/30 indicates aortic stenosis as source of low cardiac output/cardiogenic shock.
- s/p cardiac cath 04/02/25 - non-obstructive CAD
- Decision made for more urgent TAVR in hopes of tolerating HD (see below)
- s/p TAVR CT work-up with incidental finding of PE (see below)
- He is s/p TAVR on 04/06
- Continue ASA 81 mg daily (received ASA 325 on 04/02/25)
- Appreciate CTS, Director Of Medical Review, Cardiology
History of renal transplant in 2019 - donor renal transplant 2019 from [facility] [address]
Acute on chronic renal failure requiring hemodialysis
-Recent Treatment for rejection in December.
-Cellcept resumed 03/30/25 nephrology
-On steroids -Prednisone 2.5 mg BID
-Belatacept ordered per renal for 04/09/25
-Required hemodialysis on admission, received multiple session, but due to poor tolerance of HD, 03/29/25, transitioned to CRRT. Line clotted, off CRRT since.
-On temporary hemodialysis catheter- ( may need to be taken out- defer to renal)
-HD attempt on 04/01/25 resulted in tachycardia and tachypnea during HD, Severe aortic stenosis likely limiting factor for hemodynamic instability during HD
-Losartan On Hold.
Hydronephrosis of transplanted kidney
- Obstructive uropathy of transplant kidney, Disla placed 03/15/25
- Maintain Disla catheter
- Patient considering TURP
Acute hypoxic respiratory failure requiring intubation 03/21-03/25
-Likely multifactorial secondary to pulmonary edema versus pneumonia versus interstitial lung disease
-s/p empiric high dose steroids for possible ILD, now on home prednisone
-with improvement in CXR post fluid removal with HD, may have been related to fluid; s/p RHC with PCWP 8 (post fluid removal)
-s/p antibiotic course for possible pneumonia
Septic shock associated with acute kidney injury, lactic acidosis secondary to Klebsiella bacteremia likely secondary to urinary tract infection
Transplant kidney pyelonephritis with Klebsiella and E. faecalis
Immunosuppressed
-s/p 14 days IV antibiotics (completed 04/02/25)
-s/p pressor administration, now off
Pneumomediastinum
Pulmonary embolus within the posterior left lower lobe segmental pulmonary artery on CT Chest on 04/04/25
-Seen on CT Chest done in preparation for aortic valve surgery
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
-Short-segment left axillary vein thrombus-continue heparin as above (ultrasound ordered by cardiology)
Hyperglycemia-continue sliding scale coverage and NovoLog 3 units AC with Accu-Cheks
Bleeding around HD catheter, 04/04/25
-Area cleaned, ongoing bleeding noted from one of the stitches. Stitch removed, after injecting lidocaine new stitch placed at a different location. Hemostasis achieved. Appreciate wire puller
Acute blood loss anemia with baseline chronic macrocytic anemia
Epistaxis and Hematuria
-transfuse for Hg < 7
-s/p 7 units PRBC this admission last one being on 04/08/25
Epistaxis
-Previously evaluated by ENT, status post left NC packing. now removed on 03/26/25. Appears deviated septum per ENT.
-Left nostril with Clot
-s/p topical bacitracin course
-gentle nasal saline sprays in b/l nasal cavities 1-2 sprays each nostril 3-4 times daily per ENT
-recall ENT if rebleeding occurs
Left Eye Subconjunctival Hemorrhage
-Developed overnight 04/03/25-04/04/25
-Continue to monitor
Toxic metabolic encephalopathy likely secondary to shock versus ICU delirium versus hypoxemia versus uremia
-Appeared to be improving when off sedation
Atrial fibrillation with rapid ventricular response
Permanent Atrial Fibrillation
-IV Heparin gtt
- Continue Metoprolol.
Multifactorial Anemia- Iron studies noted from 03/26/25.
Sacrum Stage 2 Pressure Injury
-Wound care
Nutrition- DHT feeds in addition to diet- Appetite poor.
Ex Smoker
DVT PPX - IV heparin gtt
Diet: Tube feeds
Code status - Full Code
Anticipated Discharge: > 48 hours
Subjective/Interval History
-
Date of Service: April 10, 2025
resting comfortably
Objective Data
-
Labs:
Laboratory Results
04/09/25 04/10/25 04/10/25
17:40 03:02 10:30
WBC 15.1 H
Hgb 6.5 L*
Hct 19.6 L*
Plt Count 59 L
PT 14.4
INR 1.11
APTT Cancelled 91.4 H Pending
Sodium 137
Potassium 4.2
Chloride 108 H
Carbon Dioxide 26
BUN 90 H
Creatinine 2.1 H
Glucose 90
Calcium 8.2 L
Vital Signs:
Vital Signs
Temp Pulse Resp BP Pulse Ox
97.9 F 97 11 138/69 96
04/10/25 07:27 04/10/25 07:32 04/10/25 07:00 04/10/25 07:32 04/10/25 08:10
I&O
04/09/25 04/10/25 04/11/25
06:59 06:59 06:59
Intake Total 2621 / 2681 1712 / 1727
Output Total 1400 / 1400 1325 / 1325 225 / 225
Balance 1221 / 1281 387 / 402 -195 / -195
Review of Systems
-
History Source: Patient
Physical Exam
-
General: No Apparent Distress
HEENT: PERRLA and Other (dobhoff)
Respiratory: Clear to Auscultation
Cardiac: Regular Rhythm, S1/S2 and Murmur
GI: Soft and Nontender
Musculoskeletal: No Clubbing and Other (left arm wrapped with compression)
Skin: Warm
Neuro: AO x 3
Hematologic / Lymphatic: No Lymphadenopathy
Psych: Calm
Data Reviewed
-
Diagnostic Radiology: Report Reviewed by me
Labs: Labs Reviewed by me
[2025-04-10] MEDS: NOVOLOG FLEXPEN 3 UNITS SC ×3 (09:42→17:30)
--- NOTE | 2025-04-10 10:46 | CM ---
Chart reviewed. IV heparin gtt infusing DC >48 hours DCP is to go to SNF when ready
[2025-04-10 11:04] LABS: APTT 81.2 Sec (23.4-35.0)
[2025-04-10 11:14] LABS: Hematocrit 23.7 % (39.0-52.0); Hemoglobin 7.8 g/dL (13.0-18.0); Mean Corp Hgb Conc. 32.9 g/dL (33.0-37.0); Mean Corpuscular Volume 90.8 fL (80.0-94.0); Platelet Count 60 10^3/uL (130-400); Red Cell Dist. Width 19.0 % (11.5-14.5)
--- NOTE | 2025-04-10 11:38 | W.PN.NEPH.PH ---
Today's Communication / Plan
-
follow BMP
Assessment/Plan
-
This is a 79-year-old gentleman who follows in our office with Dr. Muhammad after donor renal transplant 2019 from [facility]. His transplant course has been complicated by development of nephrotic range proteinuria as well as recent
cellular rejection December of this year. The episodes treated with Solu-Medrol. His creatinine has risen quickly over time in the last several months. He has gone from a creatinine around 2 now up to 4.4. He was noted to have hydronephrosis of
the transplanted kidney recently on ultrasound as well as CT scan. Esteves catheter was placed by urology a few days ago. His appetite has been poor as of late. Recently he also developed fever and malaise and this has brought him to the emergency
room. He was noted to be febrile in the ER. Blood pressure was stable though lower than his home readings of 132. He was 100 systolic in the ER. Creatinine was 4.7 with elevated lactate level and elevated white count. CT of the abdomen and
pelvis were performed with suspicion for pyelonephritis of the transplant. We are asked to assist in management of his renal issues.
Assessment
Sepsis syndrome, possible pyelonephritis
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
donor renal transplant with FSGS, recent T-cell rejection
Obstructive uropathy, Esteves catheter in place
ELIZABETH..
Anemia
Hyponatremia
lactic acidosis
TAVR 04/06/25
MANAGER TECHNICAL-He had been making outpatient arrangements for eventual ESRD and transplant evaluation at [place]/previously on peritoneal dialysis prior to transfer
Plan
Status post TAVR 04/06/2025
No emergent HD needed
keeping dialysis catheter for now given recent contrast
follow CBC
last belatacept dose was 04/09 (275mg/weight based)
continue pred/MMF
High risk situation
Cause of thrombocytopenia uncertain
-
-
Date of Service: April 10, 2025
CC / HPI / ROS
-
Chief Complaint:
Sepsis
History of Present Illness:
ELIZABETH/Cr stable 2.1
BP stable remains off pressors
s/p CT chest 04/05 am
Hgb down to 6.5
on heparin gtt for PE, left upper arm DVT
plts still low 60
s/p LUE agram 04/09
Review of Systems:
non oliguric with esteves
tube feeding
Labs
-
Labs:
WBC Cancelled 04/10/25 12:00
RBC Cancelled 04/10/25 12:00
Hgb Cancelled 04/10/25 12:00
Hct Cancelled 04/10/25 12:00
Plt Count Cancelled 04/10/25 12:00
Sodium 137 mmol/L (135-145) 04/10/25 03:02
Potassium 4.2 mmol/L (3.5-5.1) 04/10/25 03:02
Chloride 108 mmol/L (98-107) H 04/10/25 03:02
Carbon Dioxide 26 mmol/L (22-30) 04/10/25 03:02
BUN 90 mg/dl (9-20) H 04/10/25 03:02
Creatinine 2.1 mg/dL (0.7-1.3) H 04/10/25 03:02
eGFR 31.43 04/10/25 03:02
Glucose 90 mg/dl (70-99) 04/10/25 03:02
Calcium 8.2 mg/dl (8.4-10.2) L 04/10/25 03:02
Phosphorus 6.0 mg/dl (2.5-4.5) H 04/10/25 03:02
Nls-B-Ifzpynsrozd Pept 93774 pg/ml 04/08/25 16:55
Albumin 2.2 g/dl (3.5-5.0) L 04/10/25 03:02
Physical Exam
-
Vital Signs:
Vital Signs
Temp Pulse Resp BP Pulse Ox
97.8 F 98 22 124/63 98
04/10/25 11:20 04/10/25 11:00 04/10/25 11:00 04/10/25 11:00 04/10/25 11:00
Cardiovascular:: Regular rate and rhythm
Respiratory:: Bilateral: Coarse
Lung Excursion:: Normal
Abdomen:: Nontender and Soft
Bowel Sounds:: Normal
Extremity Edema:: None: Bilateral:
[2025-04-10 11:47] LABS: Glucose - Point of Care 137 mg/dl (70-99)
--- NOTE | 2025-04-10 12:14 | PTCARENOTE ---
Vascular surg MD to bedside this AM, no plan for intervention on LUE- neurovascular checks maintained q1H- see flow sheet. Diet reinstated s/p vacular eval; appetite improving. Pt. assisted x2 to sit @ side of bed. Unable to stand to pivot to
chair. Lift utilized to transfer pt from bed to chair. Tolerating chair position. Heparin gtt remains infusing via R midline; titrated per orders- see flow sheet. Pt. instructed on coughing/deep breathing exercises; demonstrates understanding w
IS. Call tao placed back w in reach.
--- NOTE | 2025-04-10 12:40 | W.PN.UPDATE ---
Update Note
Progress Note Update
Ongoing cytopenias noted.
With Cr 2.1, suspect renal insufficiency is contributing to anemia as is inflammatory state with sed rate 80 when last checked.
Ordered for AM 04/11:
- retic
- LFT's including bili fractionation
- Epo level
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 Unlike HIT type II, HAT usually features a mild decrease in platelet count (less than 30%) and occurs within
first 4 days of heparin initiation; however, the platelet count tends to improve within 3 days of platelet count decrease even with continued exposure to heparin. HAT develops mainly in patients who are receiving intravenous UFH, and it is not
associated with thrombotic complications. This condition could explain patient's low platelets. They are stable at this point, no intervention needed.
Will see 04/11 AM.
[2025-04-10] MEDS: VALIUM 2 MG PO ×2 (13:12→22:36)
[2025-04-10 17:19] LABS: APTT 80.4 Sec (23.4-35.0)
[2025-04-10] MEDS: NOVOLOG FLEXPEN-HIGH RESISTANCE 2 UNITS SC (17:31)
[2025-04-10 17:32] LABS: Glucose - Point of Care 154 mg/dl (70-99)
[2025-04-10] MEDS: MELATONIN 5 MG PO (20:37)
--- NOTE | 2025-04-10 21:00 | PTCARENOTE ---
Assumed care, pt Ox3, JEFFERSON and follows commands, denies pain, Afib on the monitor c PVCs, weak radials, doppler pedals, +3 LUE, +1 RUE, lungs diminished, sats 96% RA, dyspnea on exertion, BSx4 inc stool, intermittent hiccups, R nare DHT 66cm, TF 20ml
c 25ml H2O flush, L nare crusted with blood with what appears to be a gauze inside, Chronic Disla c sarah output, skin per worklist, groin site dry and intact, LUE karl wrapped and elevated, 20G RAC, R midline, Hep gtt 15ml/hr, CHG bath, call tao
within reach, bed alarm applied, otherwise refer to documentation.
[2025-04-10 21:37] LABS: Glucose - Point of Care 149 mg/dl (70-99)
[2025-04-10 23:22] LABS: Vitamin B1, Whole Blood 198 nmol/L (70-180)
[2025-04-11] VITALS (29 sets, daily range): BP systolic 95–149; BP diastolic 52–94; PULSE 93; BMI 22.7
--- NOTE | 2025-04-11 00:10 | PTCARENOTE ---
systems reviewed, Dilaudroderick per JOEY for c/o lower back pain 12/20, no changes form previous assessment, otherwise refer to documentation.
[2025-04-11] MEDS: DILAUDID 0.5 MG IV ×4 (00:42→22:53)
[2025-04-11 03:43] LABS: Hematocrit 21.5 % (39.0-52.0); Hemoglobin 7.0 g/dL (13.0-18.0); Mean Corp Hgb Conc. 32.6 g/dL (33.0-37.0); Mean Corpuscular Volume 91.5 fL (80.0-94.0); Platelet Count 63 10^3/uL (130-400); Red Cell Dist. Width 18.6 % (11.5-14.5); Reticulocyte Count 2.4 % (0.4-2.8)
[2025-04-11 03:53] LABS: APTT 100.1 Sec (23.4-35.0)
--- NOTE | 2025-04-11 04:29 | PTCARENOTE ---
0300 neurovascular check I noticed pt pulled his DHT 10cm out TF placed on hold, pt Ox3 just said he was scratching his nose, notified POWERHOUSE MECHANIC SUPERVISOR and was given ok to advance back to 66cm, pt tolerated advancing the tube with no bleeding noticed, sats
remained 96% on RA with no coughing or distress, air auscultated above stomach, placement confirmed by Xray, TF restarted, labs sent, otherwise refer to documentation.
[2025-04-11 05:05] LABS: ALT (SGPT) 32 U/L (0-50); AST (SGOT) 40 U/L (17-59); Albumin 2.1 g/dl (3.5-5.0); Alkaline Phosphatase 85 U/L (38-126); Blood Urea Nitrogen 87 mg/dl (9-20); Calcium 8.4 mg/dl (8.4-10.2); Carbon Dioxide 26 mmol/L (22-30); Chloride 109 mmol/L (98-107); Estimated Creatinine Clearance 30 ml/min; Glucose 118 mg/dl (70-99); Potassium 4.1 mmol/L (3.5-5.1); Sodium 136 mmol/L (135-145); Total Protein 4.2 g/dl (6.3-8.2); eGFR 31.43
[2025-04-11 07:38] LABS: Glucose - Point of Care 157 mg/dl (70-99)
[2025-04-11] MEDS: DELTASONE 2.5 MG PO ×2 (07:57→20:07)
[2025-04-11] MEDS: LOPRESSOR 25 MG PO ×2 (07:57→20:08)
[2025-04-11] MEDS: LOW STRENGTH ASPIRIN 81 MG PO (07:57)
[2025-04-11] MEDS: DESENEX/MITRAZOL/ZEASORB 1 APPLIC TOPICAL (07:57)
[2025-04-11] MEDS: SENOKOT-S 1 TABLET PO (07:57)
[2025-04-11] MEDS: MIRALAX PO (07:58)
[2025-04-11] MEDS: OCEAN, SALINE MIST 1 SPRAYS NASAL ×3 (07:58→20:08)
--- NOTE | 2025-04-11 08:27 | W.PN.INTV ---
Today's Communication / Plan
Recommendations
Transfusion to keep Hb >7; plt>50k
Remains on heparin drip which may need to be stopped if Hb continues to be unstable or if patient bleeds
Hematology on board - unclear if bone marrow biopsy would assist in determining etiology for recurrent anemia as he has not had significant bleeding to cause this recurrent drop in Hb
Monitor LUE given recent arterial bleed; vascular recs appreciated
Monitor left nare epistaxis; ENT has been peripherally following
No need for HD for now per nephro
Patient stable for downgrade to IMU level of care. Pulmonary service will continue to follow along.
Assessment
-
79-year-old male with a 1 pack year smoking history, hypertension, nephrolithiasis, pulmonary nodule, atrial fibrillation, and renal transplantation on mycophenolate and prednisone with recent ultrasound showing transplant hydronephrosis presented
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
continuing to be managed. Pulmonary service now continuing to follow along.
#1. Septic shock due to UTI/acute pyelonephritis, with Klebsiella bacteremia - shock state resolved
- He remains HDN stable
- ID service recs appreciated - they signed off on 04/02, completed IV Unasyn on 04/02 - monitor off ABx while trending WBC and monitoring temperature curve
- Klebsiella and Enterococcus in urine culture from 03/18/2025
- Doing well off pressors
#2. Acute hypoxic respiratory failure
- Patient was intubated 03/21, extubated 03/25, and continued to require supplemental oxygen however he has markedly improved, and has been on room air for few days now
- Keep SpO2 >90-94%
- Aspiration precautions
- Bilateral interstitial opacities, basal predominant with interseptal thickening, suggestive of pulmonary edema vs interstitial lung disease
- Patient has baseline mild reticular changes on imaging suggestive of mild fibrosis, recent CT was with significant worsening
- Patient has severe aortic stenosis, poor tolerance of HD with significant uremia, fluid overload also was in differential diagnosis
- ILD exacerbation cannot be ruled out, patient empirically started on high-dose IV steroids on 03/28, gradually weaning since, last dose of prednisone 04/04 (20mg)
- 03/30, RHC with PCWP only 8, also f/u CXR with improved interstitial opacities more suggestive of improving pulmonary edema rather than ILD
- Mild pneumomediastinum noted on imaging, suspect related to intubation and mechanical ventilation, stable on recent CT TAVR
#3. ELIZABETH with hydronephrosis of transplanted kidney - now nonoliguric; last HD session 04/01 (did not tolerate)
- Severe pyelonephritis as well as obstructive uropathy with severe hydronephrosis in the right lower quadrant transplanted kidney noted on imaging (CT A/P from 04/04/2025); [place] kidneys are severely atrophic
- s/p Disla catheter placement
- Patient had been initiated on hemodialysis (last HD session on 04/01, which he did not tolerate)
- Due to poor tolerance of HD, 03/29, transitioned to CRRT
- History of renal transplant in 2019. MMF has been resumed on 03/30 per nephrology service; patient to start belatacept on 04/09, per nephrology
- 03/30, With low PCWP and low filling pressure, and improving CXR, patient received 1 ltr IVF
- 03/31, urine output marginally improved, creatinine continues to be high, BUN continues to climb
- 04/01, IR guided dialysis catheter exchanged in right IJ, scheduled for HD trial. [place] during dialysis, patient became tachycardic, tachypneic with respiratory distress, prematurely had to end hemodialysis followed by clinical improvement.
- Interestingly, EPO levels were 13 on 03/10/2025 (reference range: 4�27 mU/mL)
- Nephro to hold off on HD as of 04/07, as he remains nonoliguric and sCr has improved and is now stable (peak sCr: 5.8)
#4. Epistaxis involving left nare s/p rapid Rhino via ENT - rapid rhino removed as of 03/26
- 04/04 had another episode of self-limiting epistaxis. Currently on heparin gtt
- If there are additional drops in Hb with concern for continued nose bleed, then would contact ENT to re-eval the pt as he may need rapid rhino again vs cauterization of his left nare
#5. History of pulmonary nodules and baseline mild ILD
- Review of prior imaging shows mild reticular changes mostly in the posterior and basal area
- Concerning for chronic ILD versus early fibrotic changes with prior history of COVID-19
- Patient follows up with Dr. Olivarez at [facility] pulmonary clinic.
- Connective tissue disease panel negative with normal ROXANNE and rheumatoid factor levels.
- Worsening interstitial/ground glass opacities via CT chest from 03/28, which has persisted on CT TAVR from 04/04, with concern for LD exacerbation (high inflammatory markers with ESR 94, CRP 269 on 03/28); less like volume overload as LHC 3 days
prior on 04/02 showed normal LVEDP at 9mmHg, and RHC on 03/30/2025 showed normal PCWP of 8mmHg.
#6. Atrial fibrillation with rapid ventricular response/A-flutter
- Rate controlled as of 04/08
- Continue metoprolol as tolerated
- Eliquis on hold, currently on heparin infusion
#7. Severe with cardiogenic shock s/p right transfemoral TAVR with 26 mm Santana Resilia TAVR valve (OR date: 04/06/2025)
- RHC 03/2025, PCWP 8, CI 1.9, SVR 1526.
- 04/03, left heart cath without any significant coronary artery disease.
- Continue heparin gtt with eventual TRX back to Eliquis once clinically safe to do so from bleeding/anemia standpoint
#8. Bleeding around HD catheter, 04/04 - resolved
- There had been ongoing oozing noted around HD catheter site, unresponsive to local pressure - -> surgicel placement + pressure bag applied
- Area cleaned, ongoing bleeding noted from one of the stitches. Stitch removed, after injecting lidocaine new stitch placed at a different location. Hemostasis achieved. No further ongoing bleeding noted.
#9. LLL Pulmonary embolism, 04/04, newly detected; LUE DVT (new on 04/08/2025)
- Patient has had interruption of anticoagulation this admission due to epistaxis
- CT on 04/04 suggestive of small left lower lobe pulmonary embolism, patient currently on room air, saturating well not on any respiratory distress
- LE duplex negative for DVT (04/05)
- Left upper extremity duplex US on 04/08/2025 showed a short segment nonocclusive thrombus involving axillary vein
- Continue heparin gtt, and trend Hb and aPTT; transfuse blood products if needed to keep Hb>7-8g/dL, plt>50k (given post-operative status and unstable anemia with recent nose bleed); keep INR<1.8
#10. Anemia and thrombocytopenia
- Due to bone marrow suppression in setting of critical illness with recent pyelonephritis with sepsis; also recent arterial hemorrhage into left upper extremity
- Patient's reticulocyte production index checked on 04/08/2025 and is low at 1.1, indicating inadequate bone marrow response, in this case, his renal failure is contributing; B12 and B1 levels are pending; folate has already been checked on
03/19/2025 and is normal; b12 levels were 400 on 03/19/2025; iron saturation was normal on 03/26/2025, at 21% despite low iron and low TIBC levels
- Heparin associated platelet antibody negative (collected 04/04/2025) - -> 4T score was elevated at 4, hence argatroban was stopped on 04/05 after being started on 04/04
- Heme re-ordered TOBIAS panel - -> follow up
- Cautiously continue heparin drip
- Transfuse blood products as stated above
#11. Left forearm hematoma with hemorrhage
- Possibly related to recent PIV insertion +/- A-line insertion while on systemic AC and in setting of TCP; small foci of extravasated contrast seen within the soft tissues at the level of the left mid forearm adjacent to the radial artery
consistent with a mild active hemorrhage
- Arterial US showed active arterial extravasation into the left forearm with associated hematoma; no evidence of a pseudoaneurysm seen
- Vascular surgery consulted -appears that the left arm swelling and bruising started after a peripheral IV and left radial arterial line were removed
- No acute surgical intervention required at this time
- Continue with neurovascular checks; left radial pulse remains palpable; continue with gentle Huan wrap compression from the finger to the elbow with arm elevation and pain control
Conditions present prior to admission:
Hx of ESRD s/p renal transplantation-[facility] 2018-follows at [facility]-Dr. Hines and locally Dr. Muhammad
Permanent atrial fibrillation/Eliquis.
Hypertension.
BPH.
Postherpetic neuralgia.
Chronic back pain.
Pulmonary nodule right base with negative PET followed by Dr. Olivarez
Fatty liver.
Inguinal hernia
Osteoporosis.
Hernia repair.
Cataract 2020. Transplant kidney December 2018.
DVT prophylaxis: on heparin gtt
Stress ulcer prophylaxis: N/A
FEES 03/29. on pur�ed diet with tube feeds given insufficient oral intake
Previous [facility] discussions: Prognosis unfortunately poor with multiorgan dysfunction-goals of care discussion reviewed on 03/23 with the patient's daughters and with Dr. Genao; they understand that he is critically ill but they would like to
continue full medical management for now and are not interested in withdrawal care. As of 03/24, given that his mental status has improved, I recommend to continue with full aggressive management considering that he is improving. Unfortunately as
of 03/25, he continues to be hypoxic and severely deconditioned after extubation. Goals of care discussion held with Dr. Genao, and the and daughter on 03/25. They would like to continue with full medical care, as the feels that this
is what Johann would have wanted. I also discussed this goals of care with the patient himself and he says to 'do what ever is needed' at this time.
The patient last saw Dr. Olivarez 03/08/2025 for ILD, restrictive lung disease and pulmonary nodule-has appointment for PFT 04/28/2025 at 3 PM [address] appointment [address] Dr[address] Olivarez 04/29/2025 at 11:15 AM
Patient stable for downgrade to IMU level of care. Pulmonary service will continue to follow along.
Total time spent today was 76 minutes for this encounter. Time includes reviewing laboratory test/imaging results, reviewing pertinent medical records, obtaining and reviewing medical history, performing an appropriate exam, ordering medications,
tests and procedures. Time also includes documentation of this encounter, coordinating patient care and communicating with other healthcare professionals. Total time does not include separately billed tests performed on this date of service.
Office note Dr. Olivarez 03/08/2025 in regards to pulmonary nodule:
CT imaging August 2024 revealed approximately 1.3 cm nodular opacity in the right base, not present on previous exam.
Underwent a repeat CT in November 2024 Showed resolution of previously seen right basilar nodule but a new 1.4 cm nodule in the right lower lobe.
Underwent a PET scan 12/17/2024 which showed evolution of right lower lobe nodule, now presenting as large ground glass nodule measuring up to 3.9 cm. Highly suggestive of benign infectious/inflammatory process.
Repeat CT 02/2025: now demonstrate bilateral peribronchiolar ground glass infiltrate bilaterally.Unclear etiology, differential Dx includes inflammatory/infectious process vs pulmonary edema.there is evidence of small bilateral pleural effusions,
with history of aortic stenosis pulmonary edema except possibility.With ongoind immunosupresion will need to keep in my oportunistic infection.
Will obtain ILD serology, proBNP and inflmmatory markers.
Bronchoscopy with BAL may be required-if there is no evidence of volume overload.-Of note He was treated with an antibiotic and steroids middle of October 2024. He denies any active Symptoms suggesting infection.If He does produce any phlegm, we will
submit sputum culture
Diagnostic data:
CT Chest 03/28/2025- Mild pneumomediastinum, with superior extension into the fat at the base of the neck, as well as at the posterior and lateral aspect of the right mid to upper thorax.
Diffuse bilateral interstitial and groundglass opacity. This could be related to fluid associated with interstitial and pulmonary edema related to volume overload or congestive heart failure. Alternatively, findings may be infectious in nature
related to atypical or viral pneumonitis. No focal dense consolidation.
Chest x-ray 03/18/2025-severe chronic inflammatory interstitial pneumonitis
CT abdomen and pelvis 03/18/2025-severe acute edema and inflammation around right lower quadrant renal transplantation, severe hydronephrosis, severe bilateral atrophic [place] kidneys, small bilateral pleural effusions, increased coarse interstitial
markings throughout both lower lobes, right middle lobe with severe chronic inflammatory interstitial pneumonitis
ILD serology 03/10/2025-negative rheumatoid factor, ROXANNE, SSA antibodies, scleroderma antibody, proteinase [address] chest 02/23/2025 Reviewed Uriel Leong 03/08/2025 06:25:26 AM EDT >1. Resolution of previously seen right lower lobe 1.4 cm nodule.2. Mild to moderate changes of pulmonary fibrosis as seen previously.3. Superimposed upon the changes of
fibrosis, there is new large amount of bilateralperibronchovascular interstitial and groundglass opacity with small amount of bilateral upper lungairspace consolidation as detailed above. There are very small bilateral pleural effusions. Whileedema
is a differential consideration, findings are more suggestive of a superimposed infectious orinflammatory process. There is associated mild mediastinal adenopathy.-
PET CT 12/17/2024 reviewed: Uriel Leong 03/08/2025 06:25:44 AM EDT >The previously seen solid right lower lobe nodule has evolved/changed in morphology, nowpresenting as a large groundglass nodule measuring up to 3.9 cm which demonstrates
max SUV 4.7(delayed 5.4). Otherwise, no suspicious FDG avid lesions.ABDOMEN and PELVIS:No suspicious FDG-avid lesions.SKELETON:No suspicious FDG-avid lesions.This suggests inflammatory process.-
CT chest 2023: Reviewed Uriel Leong 07/05/2023 08:49:26 AM >1. No significant acute abnormality identified in the chest within the limits of unenhanced CT, asdescribed above. Probable residual fibrotic changes in the lungs, less
likely active pneumonitis.-
CT chest 02/27/2023: Reviewed Uriel Leong 03/06/2023 08:42:39 AM >There has been significant further improvement in the patient's bilateral parenchymal airspacedisease when compared with the previous examinations.Currently, there is mild
left and moderate diffuse coarsening of the interstitial markingsthroughout both lungs which at this point may be residual scarring/fibrosis rather than acute inflammatory disease.There is mild cardiomegaly. There is atherosclerosis-
CT chest 11/23/2022: showed evidence of postinflammatory fibrosis. Groundglass opacities have resolved..
Pulmonary function testing ( 07/13/2024� ):FEV1: 3.4 L-107%FVC:3.96 L-89%FEV1/FVC ratio:86%T.52 L-73%RV:44%ERV:RV/TLC ratio:23%DLCO: 13.69-50%DLCO/VA: 70%
Echo 05/19/24: Normal biventricular size and function. EF 65%. Severely dilated LA. Paradoxical low flow low gradient aortic stenosis. Mild AR.
Subjective Dataa
Subjective Data
Date of Service:
Date of Service: April 11, 2025
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
Subjective:
Patient seen this morning. Hemoglobin this morning dropped from 7.8 yesterday to 7 this morning, and 1 unit PRBC transfused overnight. No worsening bleeding involving left arm overnight and he has minimal complaints, besides feeling overall very
weak. He currently denies chest pain, SOB, PARRY, nausea, fevers or chills. NGT remains in place to administer tube feeds. Patient's is at bedside, and all questions were answered. Patient's HR currently 94 with BP 118/59.
Review of Systems
General: Other (Negative unless mentioned above)
Objective Data
Data Reviewed
Vital Signs / I&O / Oxygen:
Vital Signs
Temp Pulse Resp BP Pulse Ox
97.9 F 92 26 95/73 97
04/11/25 08:22 04/11/25 09:00 04/11/25 09:00 04/11/25 09:00 04/11/25 09:03
Intake and Output
04/10/25 04/11/25 04/12/25
06:59 06:59 06:59
Intake Total 1712 / 1727 1630 / 1690 430 / 430
Output Total 1325 / 1325 1600 / 1600 250 / 250
Balance 387 / 402 30 / 90 180 / 180
SaO2 [ASV] 98
SaO2 [A/C] 96
SaO2 [NIV (Non Invasive 97
Ventilation)]
SaO2 97
Nasal Cannula flow liters per 2
minute
Physical Exam
General: Respiratory Distress (negative), Comfortable, Chills (negative) and Sweats (negative)
HEENT: Normocephalic, Anicteric and Other (packed gauze with dried blood seen in left nare)
Cardiovascular: Irregular Rhythm (Irregularly irregular), Murmur (negative) and Peripheral Edema (negative)
Respiratory: Wheeze (n), Crackles (Bibasilar), Rhonchi (n), Non-Labored Respirations and Stridor (n)
GI: Soft, Non Distended, Non Tender and Normal Bowel Sounds
Neurology: Awake, Alert, Oriented and Tremors (negative)
Skin: Warm, Dry, Cyanosis (n), Jaundice (n), Rash (n) and Bruising (Left upper extremity, which is covered with Huan bandage)
Labs/Micro/Reports
Lab Data
04/11/25 14:00
04/11/25 03:29
Laboratory Results
04/10/25 04/10/25 04/11/25
10:43 16:59 03:29
APTT 81.2 H 80.4 H 100.1 H
--- NOTE | 2025-04-11 08:48 | W.PN.HOSP.TC ---
Today's Communication/Plan
-
see plan
Assessment / Plan
Assessment / Plan
79-year-old with history of end-stage renal disease status post kidney transplant 2019 on antirejection medications, hypertension, hyperlipidemia, atrial fibrillation on Eliquis, urinary retention status post catheter placement several days prior to
admission presenting to the emergency department with fever and chills as well as weakness, admitted for sepsis secondary to transplant pyelonephritis, acute renal failure of transplanted kidney with development of acute hypoxic respiratory failure,
inability to tolerate HD secondary to severe and now s/p TAVR 04/06.
Left Upper Extremity Hematoma
-swelling started after removaL PIV; arterial line in setting of thrombocytopenia/AC
-arterial US/angiogram with active extravasation in left forearm with associated hematoma
-appreciate Vascular surgery input - based on comorbidities/skin tissue integrity trying to avoid surgical intervention - continue karl bandage wrap and compression
-per Dr. Magaña, plan to repeat arterial duplex tomorrow; if pseudoaneurysm present consider IR intervention (high risk complications with surgery)
-continue karl bandage compression
Acute blood loss anemia 2/2 above
(see below - prior hospitalization with other bleeding episodes, patient has received many PRBC this admission)
-s/p unit PRBC 04/10, additional unit this morning for Hg drop to 7
-repeat Hg at 2PM
Thrombocytopenia
-HIT panel testing was negative; IV heparin gtt resumed with drop in PLT down to 50's
-appreciate Heme eval
-s/p 1 unit PLT in setting of bleeding
-PLT count slowlly increasing
Severe aortic stenosis with cardiogenic shock
- RHC 03/30 indicates aortic stenosis as source of low cardiac output/cardiogenic shock.
- s/p cardiac cath 04/02/25 - non-obstructive CAD
- Decision made for more urgent TAVR in hopes of tolerating HD (see below)
- s/p TAVR CT work-up with incidental finding of PE (see below)
- He is s/p TAVR on 04/06
- Continue ASA 81 mg daily (received ASA 325 on 04/02/25)
- Appreciate CTS, Real Estate Economist, Cardiology
History of renal transplant in 2019 - donor renal transplant 2019 from [facility]
Acute on chronic renal failure requiring hemodialysis
-Recent Treatment for rejection in December.
-Losartan on hold
-Cellcept resumed 03/30/25 nephrology
-On steroids -Prednisone 2.5 mg BID
-Belatacept ordered per renal for 04/09/25
-s/p temporary hemodialysis catheter
-Required hemodialysis on admission, received multiple session, but due to poor tolerance of HD, 03/29/25, transitioned to CRRT. Line clotted, off CRRT since.
-HD attempt on 04/01/25 resulted in tachycardia and tachypnea during HD, Severe aortic stenosis likely limiting factor for hemodynamic instability during HD
-*patient is now s/p TAVR. Renal function is stable/daily improvement and patient is non-oliguric therefore HD not needed to be reattempted. Post contrast again on 04/09 - BUN continues to trend down, creatinine stable. Appreciate Renal eval.
Hydronephrosis of transplanted kidney
- Obstructive uropathy of transplant kidney, Esteves placed 03/15/25
- Maintain Esteves catheter
- Patient considering TURP
Acute hypoxic respiratory failure requiring intubation 03/21-03/25
-Likely multifactorial secondary to pulmonary edema versus pneumonia versus interstitial lung disease
-s/p empiric high dose steroids for possible ILD, now on home prednisone
-with improvement in CXR post fluid removal with HD, may have been related to fluid; s/p RHC with PCWP 8 (post fluid removal)
-s/p antibiotic course for possible pneumonia
Septic shock associated with acute kidney injury, lactic acidosis secondary to Klebsiella bacteremia likely secondary to urinary tract infection
Transplant kidney pyelonephritis with Klebsiella and E. faecalis
Immunosuppressed
-s/p 14 days IV antibiotics (completed 04/02/25)
-s/p pressor administration, now off
Pneumomediastinum
Pulmonary embolus within the posterior left lower lobe segmental pulmonary artery on CT Chest on 04/04/25
-Seen on CT Chest done in preparation for aortic valve surgery
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
-Short-segment left axillary vein thrombus-continue heparin as above (ultrasound ordered by cardiology)
Hyperglycemia-continue sliding scale coverage and NovoLog 3 units AC with Accu-Cheks
Bleeding around HD catheter, 04/04/25
-Area cleaned, ongoing bleeding noted from one of the stitches. Stitch removed, after injecting lidocaine new stitch placed at a different location. Hemostasis achieved. 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
Acute blood loss anemia with baseline chronic macrocytic anemia
Epistaxis and Hematuria
-transfuse for Hg < 7
-s/p 7 units PRBC this admission last one being on 04/08/25
Epistaxis
-Previously evaluated by ENT, status post left NC packing. now removed on 03/26/25. Appears deviated septum per ENT.
-Left nostril with Clot
-s/p topical bacitracin course
-gentle nasal saline sprays in b/l nasal cavities 1-2 sprays each nostril 3-4 times daily per ENT
-recall ENT if rebleeding occurs
Left Eye Subconjunctival Hemorrhage
-Developed overnight 04/03/25-04/04/25
-Continue to monitor
Toxic metabolic encephalopathy likely secondary to shock versus ICU delirium versus hypoxemia versus uremia
-Appeared to be improving when off sedation
Atrial fibrillation with rapid ventricular response
Permanent Atrial Fibrillation
-IV Heparin gtt
- Continue Metoprolol.
Multifactorial Anemia- Iron studies noted from 03/26/25.
Sacrum Stage 2 Pressure Injury
-Wound care
Nutrition- DHT feeds in addition to diet- Appetite poor.
Ex Smoker
DVT PPX - IV heparin gtt
Diet: Tube feeds
Code status - Full Code
51 minutes spent on patient care
Anticipated Discharge: > 48 hours
Subjective/Interval History
-
Date of Service: April 11, 2025
no pain
he has no increased pain in left arm, no numbness/tingling
Objective Data
-
Labs:
Laboratory Results
04/11/25 04/11/25 04/11/25
03:29 12:00 14:00
WBC 13.2 H
Hgb 7.0 L Pending Cancelled
Hct 21.5 L
Plt Count 63 L
APTT 100.1 H
Sodium 136
Potassium 4.1
Chloride 109 H
Carbon Dioxide 26
BUN 87 H
Creatinine 2.1 H
Glucose 118 H
Calcium 8.4
Total Bilirubin 0.8
AST 40
ALT 32
Alkaline Phosphatase 85
Vital Signs:
Vital Signs
Temp Pulse Resp BP Pulse Ox
97.9 F 100 21 128/71 98
04/11/25 08:22 04/11/25 08:22 04/11/25 08:22 04/11/25 08:22 04/11/25 08:22
I&O
04/10/25 04/11/25 04/12/25
06:59 06:59 06:59
Intake Total 1712 / 1727 1630 / 1690 352 / 352
Output Total 1325 / 1325 1600 / 1600 250 / 250
Balance 387 / 402 102 / 102
Review of Systems
-
History Source: Patient
All other systems: Reviewed and negative
Physical Exam
-
General: No Apparent Distress
HEENT: PERRLA and Other (dobhoff; dried blood left nare )
Respiratory: Clear to Auscultation
Cardiac: Regular Rhythm, S1/S2 and Murmur
GI: Soft and Nontender
Genito-urinary: Other (esteves, mild blood tinged urine)
Musculoskeletal: No Clubbing and Other (left arm wrapped with compression)
Skin: Warm
Neuro: AO x 3
Hematologic / Lymphatic: No Lymphadenopathy
Psych: Calm
Data Reviewed
-
Diagnostic Radiology: Report Reviewed by me
Labs: Labs Reviewed by me
[2025-04-11] MEDS: NOVOLOG FLEXPEN-HIGH RESISTANCE 2 UNITS SC ×2 (08:54→14:04)
[2025-04-11] MEDS: CELLCEPT 1000 MG PO ×2 (08:54→20:08)
[2025-04-11] MEDS: NOVOLOG FLEXPEN 3 UNITS SC ×3 (08:54→18:08)
--- NOTE | 2025-04-11 09:00 | PTCARENOTE ---
Received pt @ change of shift. Pt. drowsy, awakens to verbal stim; ox3; flat and forgetful @ x's; denies pain. A fib on monitor. SpO2 97% on RA. +BS, abd soft/round. R nare dobhoff in place; clamped; TF infusing per orders. Inc of bowel. Disla in
place draining sarah urine/sediment/bloody tinged urine. Dr. Nguyen aware of blood tinged urine. LUE +3 edema/ecchymotic; KRISSY wrap in place; neurovascular checks maintained per orders- see flow sheet. #20 R FA w 1 unit PRBC transfusion completed-
see TAR. R midline w heparin gtt- see flow sheet. Complete AM hygiene. Pt. assisted w active repositioning in bed. Pt. feeding self breakfast; appetite improving. Call tao placed w in reach.
[2025-04-11] MEDS: TYLENOL 650 MG PO (09:54)
--- NOTE | 2025-04-11 10:41 | W.PN.NEPH.PH ---
Today's Communication / Plan
-
follow BMP
Assessment/Plan
-
This is a 79-year-old gentleman who follows in our office with Dr. Muhammad after donor renal transplant 2019 from [facility]. His transplant course has been complicated by development of nephrotic range proteinuria as well as recent
cellular rejection December of this year. The episodes treated with Solu-Medrol. His creatinine has risen quickly over time in the last several months. He has gone from a creatinine around 2 now up to 4.4. He was noted to have hydronephrosis of
the transplanted kidney recently on ultrasound as well as CT scan. Esteves catheter was placed by urology a few days ago. His appetite has been poor as of late. Recently he also developed fever and malaise and this has brought him to the emergency
room. He was noted to be febrile in the ER. Blood pressure was stable though lower than his home readings of 132. He was 100 systolic in the ER. Creatinine was 4.7 with elevated lactate level and elevated white count. CT of the abdomen and
pelvis were performed with suspicion for pyelonephritis of the transplant. We are asked to assist in management of his renal issues.
Assessment
Sepsis syndrome, possible pyelonephritis
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
donor renal transplant with FSGS, recent T-cell rejection
Obstructive uropathy, Esteves catheter in place
ELIZABETH..
Anemia
Hyponatremia
lactic acidosis
TAVR 04/06/25
LUE arterial oozing
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
Plan
Status post TAVR 04/06/2025
No emergent HD needed
keeping dialysis catheter for now given recent contrast, possibly d/c tomorrow
follow CBC, unsure where he is losing this blood
last belatacept dose was 04/09 (275mg/weight based)
continue pred/MMF
High risk situation
-
-
Date of Service: April 11, 2025
CC / HPI / ROS
-
Chief Complaint:
Sepsis
History of Present Illness:
ELIZABETH/Cr stable 2.1
BP stable remains off pressors
s/p CT chest 04/05 am
Hgb down to 7 again
on heparin gtt for PE, left upper arm DVT
plts still low 63
s/p LUE agram 04/09
Review of Systems:
non oliguric with esteves
tube feeding
Labs
-
Labs:
WBC 13.2 10^3/uL (4.8-10.8) H 04/11/25 03:29
RBC 2.35 10^6/uL (4.70-6.10) L 04/11/25 03:29
Hgb Cancelled 04/11/25 14:00
Hct 21.5 % (39.0-52.0) L 04/11/25 03:29
Plt Count 63 10^3/uL (130-400) L 04/11/25 03:29
Sodium 136 mmol/L (135-145) 04/11/25 03:29
Potassium 4.1 mmol/L (3.5-5.1) 04/11/25 03:29
Chloride 109 mmol/L (98-107) H 04/11/25 03:29
Carbon Dioxide 26 mmol/L (22-30) 04/11/25 03:29
BUN 87 mg/dl (9-20) H 04/11/25 03:29
Creatinine 2.1 mg/dL (0.7-1.3) H 04/11/25 03:29
eGFR 31.43 04/11/25 03:29
Glucose 118 mg/dl (70-99) H 04/11/25 03:29
Calcium 8.4 mg/dl (8.4-10.2) 04/11/25 03:29
Phosphorus 6.0 mg/dl (2.5-4.5) H 04/10/25 03:02
Pzo-S-Ikuhsgfmgye Pept 41843 pg/ml 04/08/25 16:55
Albumin 2.1 g/dl (3.5-5.0) L 04/11/25 03:29
Physical Exam
-
Vital Signs:
Vital Signs
Temp Pulse Resp BP Pulse Ox
97.9 F 92 26 95/73 97
04/11/25 08:22 04/11/25 09:00 04/11/25 09:00 04/11/25 09:00 04/11/25 09:03
Cardiovascular:: Irregular rate and rhythm
Respiratory:: Bilateral: Coarse
Lung Excursion:: Normal
Abdomen:: Nontender and Soft
Bowel Sounds:: Normal
Extremity Edema:: None: Bilateral:
[2025-04-11 11:38] LABS: Glucose - Point of Care 184 mg/dl (70-99)
--- NOTE | 2025-04-11 13:24 | W.PN.CD ---
Today's Communication / Plan
-
Monitor hemoglobin
Impression / Plan
-
Impression/Plan: 79M with prior renal transplant in 2019 presenting with septic shock and ELIZABETH now on CRRT with inability to tolerate iHD, now status post TF TAVR 04/06/2025.
#Aortic stenosis, severe:
-s/p TF TAVR with Shu S3 Ultra 26 mm valve (Ric/Santo, 04/06/25).
-Telemetry shows atrial flutter, rate controlled.
-Antithrombotic therapy with apixaban on hold--> Anemia requiring transfusion : Continue aspirin in the mean time.
-Post TTE shows stable valve, normal gradients, no effusion.
#ELIZABETH on CKD
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
-Residual renal function is minimal (some urine production) but nephrology feels that renal function will likely not meaningfully recover.
-Nephrology following
#Acute respiratory failure:
-History of ILD, has been stable as outpatient.
-CT scan 03/28/25: Mild pneumomediastinum, with superior extension into the fat at the base of the neck, as well as at the posterior and lateral aspect of the right mid to upper thorax. Diffuse bilateral interstitial and groundglass opacity. This
could be related to fluid associated with interstitial and pulmonary edema related to volume overload or congestive heart failure. Alternatively, findings may be infectious in nature related to atypical or viral pneumonitis. No focal dense
consolidation. On IV steroids. On IV abx.
-Extubated, minimal O2.
-LVEDP 18 mmHg during TAVR (04/06/2025).
#Permanent AFIB:
-Chronic, stable.
-Rate control with metoprolol. HR ~ 100.
-CHADS2-Vasc = 4 (CHF, HTN, Age x2).
-Apixaban transitioned to heparin, then argatroban given concern for HIT. Transition back to DOAC delayed in light of anemia/thrombocytopenia.
#Anemia/Thrombocytopenia:
-Acute on chronic, multifactorial.
- 1 unit PRBCs April 10 for hemoglobin 6.5 since then continues to downtrend monitor
-2U pRBCs before TAVR --> with appropriate response but continues to drift (6.4 --> 8.7 --> 8.9 --> 7.6).
-Platelets = 117 --> 112 --> 106 --> 97 --> 87 --> 62. Heparin associated platelet antibody negative, but platelets continue to fall with resumption of heparin.
-Macrocytic. Transfusion would have repleted Fe stores (also ferritin 1550 on 03/19/2025). B12, folate normal on 03/19/2025. Check thiamine, reticulocytes.
-There is LUE edema with ecchymosis. We will check a LUE US.
-Current 4Ts score = 3-4 which is intermediate (>50% platelet fall, maddi > 20k, TAVR within 3 days - but the thrombocytopenia predates this; platelet fall 5-10 days after starting heparin, again 1 day after restarting with prior exposure),
possibly high if there is RUE venous thrombosis.
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 If the patient does have DVT, it would be reasonable to consider a serotonin release assay based on discordant TARI and 4T score.
#Hypertension
-Chronic, stable
Subjective/Interval History:
Patient very weak working with PT
DATA:
Echo 03/23/25:
SUMMARY
1. Normal biventricular size and systolic function.
2. Severe aortic stenosis, mean 39 mmHg and estimated SHU 0.46 cmsq. Aortic valve assessment may be affected by anemia (Hgb 7.5).
3. Severe left atrial enlargement.
4. Compared to echocardiogram dated 05/19/2024 the gradient across the aortic valve has increased from 29 mmHg, the aortic valve area was estimated at 0.9 cmsq. The Hgb in 05/2024 was 15.
TAVR, 04/06/2025:
CONCLUSION: Successful placement of a 26 mm Santana Shu 3 Ultra RESILIA transcatheter aortic valve via right transfemoral approach with no acute complications.
Echo, 04/06/2025:
SUMMARY
1. Normal biventricular size and function without wall motion abnormality.
2. LVEF is 60-65% by visual estimation.
3. S/p 26 mm Santana TAVR valve. Mean gradient 4 mmHg. Trivial aortic regurgitation.
4. Limited interrogation of other valves.
5. Compared to prior from March 23, 2025, now status post TAVR valve.
Echo, 04/07/2025:
SUMMARY
1. Limited echocardiogram. HORACIO performed 04/06/2025.
2. Normal biventricular size and systolic function.
3. Biatrial enlargement.
4. The TAVR is well-seated without aortic regurgitation. Mean gradient 7 mmHg.
5. No significant change since echocardiogram performed immediately after HORACIO.
Physical Exam
Vital Signs/Labs
Vital Signs
Temp Pulse Resp BP Pulse Ox
98.1 F 89 20 116/65 94
04/11/25 11:28 04/11/25 11:13 04/11/25 11:13 04/11/25 11:13 04/11/25 11:13
04/10/25 04/11/25 04/12/25
06:59 06:59 06:59
Actual Weight 166 lb 7.184 oz 167 lb 8.821 oz
04/11/25 14:00
04/11/25 03:29
PT 14.4 Sec (11.4-14.6) 04/10/25 03:02
INR 1.11 04/10/25 03:02
APTT 100.1 Sec (23.4-35.0) H 04/11/25 03:29
Magnesium 1.9 mg/dl (1.6-2.3) 04/09/25 03:43
Triglycerides 220 mg/dl (10-149) H 03/27/25 03:27
03/19/25 03/26/25 03/28/25
23:51 03:21 03:28
Qne-Q-Rejkxdawezn Pept > 51460 39141 30218
04/08/25
16:55
Nne-I-Cnhycktftea Pept 29975
Physical Exam
Constitutional: No acute distress and Confusion (Mild)
EENT: Anicteric
Cardiovascular: Rhythm/rate is irregular
Respiratory: Other (Poor inspiratory effort coarse breath sounds)
GI: Soft
Neuro/Psych: Alert and Oriented
Data Reviewed
-
Date of Service: April 11, 2025
EKG: Tracing Personally Visualized and interpreted (A-fib)
Echo: Report Reviewed by me
Labs: Labs Reviewed by me
[2025-04-11 13:52] LABS: Hemoglobin 8.1 g/dL (13.0-18.0)
--- NOTE | 2025-04-11 14:13 | W.PN.UPDATE ---
Update Note
Progress Note Update
patient with worsening hematuria today, no blood clots. I have consulted Urology. Dr. Jim will see patient soon. IV Heparin gtt on hold for now. Dr. Genao updated.
OK to continue aspirin
repeat Hg this evening.
--- NOTE | 2025-04-11 14:42 | PTCARENOTE ---
pt. assisted x2 to sit at side of bed; attempted x3 to stand w RW, unable d/t deconditioned state. Utilized lift to transfer pt. from bed to chair; tolerated position x2 hrs. PT to bedside; legs exercises performed and pt. attempted again x3 to
stand from chair; remained unable. Sit to stand lift utilized to assist pt. back to bed. Pt. assisted w active repositioning once back to bed. Urine noted to be bloody tinged this AM; hematuria remains w/out clots. Hgb drawn and sent to lab;
results relayed to Dr. Nguyen. to bedside to assess; received further orders for urology watchguard and hold heparin gtt- see flow sheet. Dr. Nguyen updated @ bedside. remains @ bedside. Call aislinn garland in reach.
--- NOTE | 2025-04-11 16:15 | CON.MD ---
Consultation - Medical
-
see dictated note
pt s/p renal transplant
seen in 2023 for routine prostate check- psa nl/mild luts/pvr under 100cc
seen end of feb 2025 with hydro of transplant kidney- present for some time with slight decline in renal function
pvr was >500cc
elected placement of esteves to see if bladder decompression would resolve hydro- was supposed to get repeat imaging and labs 4 weeks after esteves placement
however- was admitted with urosepsis- has now had an extended hospital- but now extubated- off pressures course requiring intubation at one time and HD
underwent TAVR for severe
slow recovery- but is now making urine with baseline cr 2.0- however even with esteves- transplant kidney still hydronephrotic
has had some bleeding issues- arm and nose- off eliquis- has been thrombocytopenic
during tavr eval- ct showed PE- was started on heparin drip- now with hematuria
plan
reviewed all records extensively
spoke with med team and nephrology
spoke with family extensively
3 way esteves placed- bladder irrigated- cbi started- urine clear on slow drip
heparin being held
pt would be a very poor OR candidate for even minor intervention at this time
if urine clears in the next 24 hours- could try and restart heparin- if not- would need to consider ivr filter
with hydro- does not appear to be soley due to bladder distension and reflux- so will need transplant eval aspa
will need to keep esteves and eventually need cysto and UDS and determine if a candidate for TURP
will follow closely
Consultation
-
Date/Time Consultation Requested: 04/11/25 at 2pm
Date/Time Consultation Performed: 04/11/25 at 4pm
Requesting Provider: Dr Nguyen
Performing Provider: Dr Jim
Reason for Consultation: Hematuria
[2025-04-11 16:30] LABS: Glucose - Point of Care 147 mg/dl (70-99)
--- NOTE | 2025-04-11 17:08 | PTCARENOTE ---
Urology to bedside; Disla exchanged to 3-way Disla and CBI initiated by MD. Urine clear-light pink, no clots; pt. tolerating. MD updated family @ bedside.
[2025-04-11] MEDS: ANESTHETIC LOZENGE 1 LOZENGE PO (18:03)
[2025-04-11] MEDS: NOVOLOG FLEXPEN-HIGH RESISTANCE 1 UNITS SC ×2 (18:08→20:47)
[2025-04-11] MEDS: SENOKOT-S PO (20:08)
[2025-04-11] MEDS: MELATONIN 5 MG PO (20:08)
[2025-04-11] MEDS: DESENEX/MITRAZOL/ZEASORB TOPICAL (20:08)
--- NOTE | 2025-04-11 20:42 | W.PN.UPDATE ---
Update Note
Progress Note Update
Patient had loose bm with maroon color stool, vital signs stable. Currently heparin drip on hold.
-PPI BID IV.
-h&h q 6 hrs
-GI consult ordered.
[2025-04-11] MEDS: PROTONIX IV 40 MG IV (20:46)
[2025-04-11] MEDS: NSS (PRESERVATIVE FREE) 10 ML IV (20:46)
[2025-04-11 20:50] LABS: Hemoglobin 7.8 g/dL (13.0-18.0)
[2025-04-11 20:52] LABS: Glucose - Point of Care 99 mg/dl (70-99)
[2025-04-12] VITALS (26 sets, daily range): BP systolic 135–179; BP diastolic 62–92; PULSE 86–88; O2SAT 98; BMI 22.6
[2025-04-12] MEDS: VALIUM 2 MG PO (02:43)
[2025-04-12 03:16] LABS: APTT 29.8 Sec (23.4-35.0)
[2025-04-12 03:19] LABS: Hematocrit 23.6 % (39.0-52.0); Hemoglobin 7.9 g/dL (13.0-18.0); Mean Corp Hgb Conc. 33.5 g/dL (33.0-37.0); Mean Corpuscular Volume 92.9 fL (80.0-94.0); Platelet Count 66 10^3/uL (130-400); Red Cell Dist. Width 18.0 % (11.5-14.5)
[2025-04-12 03:33] LABS: Blood Urea Nitrogen 83 mg/dl (9-20); Calcium 8.5 mg/dl (8.4-10.2); Carbon Dioxide 25 mmol/L (22-30); Chloride 109 mmol/L (98-107); Estimated Creatinine Clearance 31 ml/min; Glucose 124 mg/dl (70-99); Magnesium 1.9 mg/dl (1.6-2.3); Potassium 4.1 mmol/L (3.5-5.1); Sodium 137 mmol/L (135-145); eGFR 31.43
--- NOTE | 2025-04-12 04:43 | PTCARENOTE ---
Assumed care at 1900. Patient with loose maroon/brown colored stool. production miner provider made aware and ordered protonix and GI consult. Hgb checked and 7.8. VSS. afib on the monitor. See worklist for nursing shift assessment and neurovascular checks.
--- NOTE | 2025-04-12 06:43 | W.PN.URO.CBU ---
Today's Communication / Plan
-
continue CBI
Assessment / Plan
-
hx of renal transplant with hydro of transplant kidney
urinary retention
UTI- urosepsis
hematuria
very difficult
urine is clearing- but still with hematuria
in addition- hydro of transplant kidney remains- despite esteves/treatment of urinary retention- although clearly it is not a complete obstruction as pt is making urine and cr (although elevated) is at his baseline- and this has been present since at
least dec
in terms of hematuria- options are continue hold of anticoagulation in hopes it clears/ placement of ivc filter if necessary or OR in next 24-48hrs for cysto/attempt at fulguration- all with sig risks
in terms of his transplant hydro- this is not necessarily new- but has not resolved with relief of obstruction- at some point would attempt renal scan with lasix- but ultimately would need to be addressed by a transplant center
will discuss with med team today
for now continue cbi and try and recheck ucx
Diagnosis
-
Date of Service: April 12, 2025
-
Patient Urologic Diagnosis:
hx of renal transplant
urinary retention
hydro of renal transplant
UTI
hematuria
Subjective
-
no change in clinical status
afebrile/wbc down/stable
on cbi- urine pink- clearing in tube
Objective
-
Vital Signs
Temp Pulse Resp BP Pulse Ox
98.4 F 93 24 146/71 96
04/12/25 00:35 04/12/25 06:00 04/12/25 06:00 04/12/25 06:00 04/12/25 05:00
Intake and Output
04/10/25 04/11/25 04/12/25
06:59 06:59 06:59
Intake Total 1712 / 1727 1630 / 1690 1690 / 1690
Output Total 1325 / 1325 1600 / 1600 5410 / 5410
Balance 387 / 402 30 / 90 -3720 / -3720
Intake:
Oral fluids 120 / 120 240 / 240
IV fluids (Total) 755 / 770 360 / 375 120 / 120
Bicarb 575 / 575
Heparin 180 / 195 360 / 375 120 / 120
IV piggybacks 100 / 100
Tube feeding 40 / 40 400 / 420 480 / 480
Feeding tube flush amount 50 / 50 500 / 525 600 / 600
Blood Products 250 / 250 250 / 250
Packed red blood cells 250 / 250 250 / 250
Blood Product Amount Infused ( 517 / 517 0 / 0 250 / 250
mL)
Packed Rbc Leukoreduced Unit 0 / 0 250 / 250
[id number]
Packed Rbc Leukoreduced Unit 250 / 250
[id number]
Pathogen Redu Plt Leukored 267 / 267
Unit [id number]
Output:
Urine, Esteves 1325 / 1325 1600 / 1600 600 / 600
True Urine Output from CBI 4810 / 4810
Laboratory Results
04/12/25 02:50
Review of Systems
-
Constitutional: Fatigue
Respiratory: No Symptoms
Cardiac: No Symptoms
Abdomen/GI: No Symptoms
Physical Exam
-
General - no acute distress
Abdomen - soft, non-tender,
Genitalia - normal- [address]
--- NOTE | 2025-04-12 07:14 | W.PN.PUL3 ---
Addendum entered and electronically signed by Denisse Tang DO 04/12/25 13:38:
Decision for transfer to tertiary facility, agree with plan
We will formally sign off, please call with questions
Original Note:
Today's Communication / Plan
-
Remains stable, off pressors
TFs via DHT
Further management for RUE per team, awaiting vascular input
PT/OT ongoing
Could consider diuresis per renal team, proBNP >10k
We will see again as needed pending decision making and vascular intervention
Assessment
-
79-year-old male with a 1 pack year smoking history, hypertension, nephrolithiasis, pulmonary nodule, atrial fibrillation, and renal transplantation on mycophenolate and prednisone with recent ultrasound showing transplant hydronephrosis presented
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
continuing to be managed. Pulmonary service now continuing to follow along.
#1. Septic shock due to UTI/acute pyelonephritis, with Klebsiella bacteremia - shock state resolved
#2. Acute hypoxic respiratory failure
#3. ELIZABETH with hydronephrosis of transplanted kidney - now nonoliguric; last HD session 04/01 (did not tolerate)
#4. Epistaxis involving left nare s/p rapid Rhino via ENT - rapid rhino removed as of 03/26
#5. History of pulmonary nodules and baseline mild ILD
#6. Atrial fibrillation with rapid ventricular response/A-flutter
#7. Severe with cardiogenic shock s/p right transfemoral TAVR with 26 mm Santana Resilia TAVR valve (OR date: 04/06/2025)
#8. Bleeding around HD catheter, 04/04 - resolved
#9. LLL Pulmonary embolism, 04/04, newly detected; LUE DVT (new on 04/08/2025)
#10. Anemia and thrombocytopenia
#11. Left forearm hematoma with hemorrhage
Conditions present prior to admission:
Hx of ESRD s/p renal transplantation-[facility] 2018-follows at [facility]-Dr. Hines and locally Dr. Muhammad
Permanent atrial fibrillation/Eliquis.
Hypertension.
BPH.
Postherpetic neuralgia.
Chronic back pain.
Pulmonary nodule right base with negative PET followed by Dr. Olivarez
Fatty liver.
Inguinal hernia
Osteoporosis.
Hernia repair.
Cataract 2020. Transplant kidney December 2018.
Plan
He remains HDN stable
ID service recs appreciated - they signed off on 04/02, completed IV Unasyn on 04/02 - monitor off ABx while trending WBC and monitoring temperature curve
Klebsiella and Enterococcus in urine culture from 03/18/2025
Doing well off pressors
Patient was intubated 03/21, extubated 03/25, and continued to require supplemental oxygen however he has markedly improved, and has been on room air for few days now
Keep SpO2 >90-94%
Aspiration precautions
Bilateral interstitial opacities, basal predominant with interseptal thickening, suggestive of pulmonary edema vs interstitial lung disease
Patient has baseline mild reticular changes on imaging suggestive of mild fibrosis, recent CT was with significant worsening
ILD exacerbation cannot be ruled out, patient empirically started on high-dose IV steroids on 03/28, gradually weaning since, last dose of prednisone 04/04 (20mg)
03/30, RHC with PCWP only 8, also f/u CXR with improved interstitial opacities more suggestive of improving pulmonary edema rather than ILD
Mild pneumomediastinum noted on imaging, suspect related to intubation and mechanical ventilation, stable on recent CT TAVR
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
s/p Disla catheter placement
Patient had been initiated on hemodialysis (last HD session on 04/01, which he did not tolerate)
Due to poor tolerance of HD, 03/29, transitioned to CRRT
History of renal transplant in 2019. MMF has been resumed on 03/30 per nephrology service; patient to start belatacept on 04/09, per nephrology
03/30, With low PCWP and low filling pressure, and improving CXR, patient received 1 ltr IVF
03/31, urine output marginally improved, creatinine continues to be high, BUN continues to climb
04/01, IR guided dialysis catheter exchanged in right IJ, scheduled for HD trial. [place] during dialysis, patient became tachycardic, tachypneic with respiratory distress, prematurely had to end hemodialysis followed by clinical improvement.
Interestingly, EPO levels were 13 on 03/10/2025 (reference range: 4�27 mU/mL)
Nephro to hold off on HD as of 04/07, as he remains nonoliguric and sCr is improving
Review of prior imaging shows mild reticular changes mostly in the posterior and basal area
Concerning for chronic ILD versus early fibrotic changes with prior history of COVID-19
Patient follows up with Dr. Olivarez at [facility] pulmonary clinic.
Connective tissue disease panel negative with normal ROXANNE and rheumatoid factor levels.
Worsening interstitial/ground glass opacities via CT chest from 03/28, which has persisted on CT TAVR from 04/04, with concern for LD exacerbation (high inflammatory markers with ESR 94, CRP 269 on 03/28); less like volume overload as LHC 3 days
prior on 04/02 showed normal LVEDP at 9mmHg, and RHC on 03/30/2025 showed normal PCWP of 8mmHg.
Afib- Rate controlled as of 04/08
- Continue metoprolol as tolerated
- Eliquis on hold, currently on heparin infusion
Patient has severe aortic stenosis, poor tolerance of HD with significant uremia, fluid overload also was in differential diagnosis
RHC 03/2025, PCWP 8, CI 1.9, SVR 1526.
- 04/03, left heart cath without any significant coronary artery disease.
- Continue heparin gtt with eventual TRX back to [facility] once clinically safe to do so from bleeding/anemia standpoint
CT on 04/04 suggestive of small left lower lobe pulmonary embolism, patient currently on room air, saturating well not on any respiratory distress
LE duplex negative for DVT (04/05)
Left upper extremity duplex US on 04/08/2025 showed a short segment nonocclusive thrombus involving axillary vein
Continue heparin gtt, and trend Hb and aPTT; transfuse blood products if needed to keep Hb>7-8g/dL, plt>50k (given post-operative status and unstable anemia with recent nose bleed); keep INR<1.8
Due to bone marrow suppression in setting of critical illness with recent pyelonephritis with sepsis, and persisting now with hemorrhage into left upper extremity
- Patient's reticulocyte production index checked on 04/08/2025 and is low at 1.1, indicating inadequate bone marrow response, in this case, his renal failure is contributing; B12 and B1 levels are pending; folate has already been checked on
03/19/2025 and is normal; b12 levels were 400 on 03/19/2025; iron saturation was normal on 03/26/2025, at 21% despite low iron and low TIBC levels
- Heparin associated platelet antibody negative (collected 04/04/2025)-prior - -> 4T score was elevated at 4, hence argatroban was stopped on 04/05 after being started on 04/04
- Cautiously continue heparin drip
- Transfuse blood products as stated above
Small foci of extravasated contrast seen within the soft tissues at the level of the left mid forearm adjacent to the radial artery consistent with a mild active hemorrhage
- The arterial US also shows active arterial extravasation into the left forearm with associated hematoma; no evidence of a pseudoaneurysm seen
- Vascular surgery has already been consulted -appears that the left arm swelling and bruising started after a peripheral IV and left radial arterial line were removed
- No foreseen acute surgical intervention required at this time but ultimate decision will be deferred to vascular surgery
- Continue with neurovascular checks as currently the left radial pulses palpable; continue with gentle Huan wrap compression from the finger to the elbow with arm elevation and pain control
DVT prophylaxis: on heparin gtt
Stress ulcer prophylaxis: N/A
FEES 03/29. on pur�ed diet
Family Discussions
Previous [facility] discussions: Prognosis unfortunately poor with multiorgan dysfunction-goals of care discussion reviewed on 03/23 with the patient's daughters and with Dr. Genao; they understand that he is critically ill but they would like to
continue full medical management for now and are not interested in withdrawal care. As of 03/24, given that his mental status has improved, I recommend to continue with full aggressive management considering that he is improving. Unfortunately as
of 03/25, he continues to be hypoxic and severely deconditioned after extubation. Goals of care discussion held with Dr. Genao, and the and daughter on 03/25. They would like to continue with full medical care, as the feels that this
is what Johann would have wanted. I also discussed this goals of care with the patient himself and he says to 'do what ever is needed' at this time.
The patient last saw Dr. Olivarez 03/08/2025 for ILD, restrictive lung disease and pulmonary nodule-has appointment for PFT 04/28/2025 at 3 PM and appointment [address] Dr[address] Olivarez 04/29/2025 at 11:15 AM
Diagnostic Data:
CT Chest 03/28/2025- Mild pneumomediastinum, with superior extension into the fat at the base of the neck, as well as at the posterior and lateral aspect of the right mid to upper thorax.
Diffuse bilateral interstitial and groundglass opacity. This could be related to fluid associated with interstitial and pulmonary edema related to volume overload or congestive heart failure. Alternatively, findings may be infectious in nature
related to atypical or viral pneumonitis. No focal dense consolidation.
Chest x-ray 03/18/2025-severe chronic inflammatory interstitial pneumonitis
CT abdomen and pelvis 03/18/2025-severe acute edema and inflammation around right lower quadrant renal transplantation, severe hydronephrosis, severe bilateral atrophic flandreau kidneys, small bilateral pleural effusions, increased coarse interstitial
markings throughout both lower lobes, right middle lobe with severe chronic inflammatory interstitial pneumonitis
ILD serology 03/10/2025-negative rheumatoid factor, ROXANNE, SSA antibodies, scleroderma antibody, proteinase [address] chest 02/23/2025 Reviewed Uriel Leong 03/08/2025 06:25:26 AM EDT >1. Resolution of previously seen right lower lobe 1.4 cm nodule.2. Mild to moderate changes of pulmonary fibrosis as seen previously.3. Superimposed upon the changes of
fibrosis, there is new large amount of bilateral peribronchovascular interstitial and groundglass opacity with small amount of bilateral upper lung airspace consolidation as detailed above. There are very small bilateral pleural effusions. While
edema is a differential consideration, findings are more suggestive of a superimposed infectious or inflammatory process. There is associated mild mediastinal adenopathy.-
PET CT 12/17/2024 reviewed: Uriel Leong 03/08/2025 06:25:44 AM EDT >The previously seen solid right lower lobe nodule has evolved/changed in morphology, now presenting as a large groundglass nodule measuring up to 3.9 cm which demonstrates
max SUV 4.7(delayed 5.4). Otherwise, no suspicious FDG avid lesions.ABDOMEN and PELVIS:No suspicious FDG-avid lesions.SKELETON:No suspicious FDG-avid lesions.This suggests inflammatory process.-
CT chest 2023: Reviewed Uriel Leong 07/05/2023 08:49:26 AM >1. No significant acute abnormality identified in the chest within the limits of unenhanced CT, as described above. Probable residual fibrotic changes in the lungs, less
likely active pneumonitis.-
CT chest 02/27/2023: Reviewed Uriel Leong 03/06/2023 08:42:39 AM >There has been significant further improvement in the patient's bilateral parenchymal airspace disease when compared with the previous examinations.Currently, there is
mild left and moderate diffuse coarsening of the interstitial markingsthroughout both lungs which at this point may be residual scarring/fibrosis rather than acute inflammatory disease.There is mild cardiomegaly. There is atherosclerosis-
CT chest 11/23/2022: showed evidence of postinflammatory fibrosis. Groundglass opacities have resolved..
Pulmonary function testing ( 07/13/2024� ):FEV1: 3.4 L-107%FVC:3.96 L-89%FEV1/FVC ratio:86%T.52 L-73%RV:44%ERV:RV/TLC ratio:23%DLCO: 13.69-50%DLCO/VA: 70%
Echo 05/19/24: Normal biventricular size and function. EF 65%. Severely dilated LA. Paradoxical low flow low gradient aortic stenosis. Mild AR.
Total time spent today was 56 minute for this encounter. Time includes reviewing laboratory tests/imaging results, reviewing pertinent medical records, obtaining and reviewing medical history, performing an appropriate physical exam, ordering
medications, tests and procedures. Time also includes documentation of this encounter, coordinating patient care and communicating with other healthcare professionals. Total time does not include separately billed tests or procedures performed on
this date of service.
Subjective Data
-
Date of Service:
Date of Service: April 12, 2025
Chief Complaint: Pulmonary Follow Up
Subjective:
Remains chronically ill, deconditioned
DHT in place
Objective Data
Data Reviewed
Vital Signs / I&O / Oxygen:
Vital Signs
Temp Pulse Resp BP Pulse Ox
98.4 F 93 24 146/71 96
04/12/25 00:35 04/12/25 06:00 04/12/25 06:00 04/12/25 06:00 04/12/25 05:00
Intake and Output
04/11/25 04/12/25 04/13/25
06:59 06:59 06:59
Intake Total 1630 / 1690 1690 / 1690
Output Total 1600 / 1600 5410 / 5410
Balance 30 / 90 -3720 / -3720
SaO2 [ASV] 98
SaO2 [A/C] 96
SaO2 [NIV (Non Invasive 97
Ventilation)]
SaO2 96
Nasal Cannula flow liters per 2
minute
Physical Exam
General: Respiratory Distress (negative), Comfortable, Chills (negative), Sweats (negative) and Other (Elderly male, in NAD; significantly deconditioned)
HEENT: Normocephalic, Anicteric and Other (Dried blood seen in left nare)
Cardiovascular: Irregular Rhythm, Peripheral Edema (+1 lower extremity pitting edema bilaterally) and Other (Tachycardic)
Respiratory: Wheeze (negative), Crackles (Bibasilar), Rhonchi (negative) and Non-Labored Respirations
GI: Soft, Non Distended, Non Tender, Normal Bowel Sounds and NG Tube (DHT via right nare)
Neurology: Tremors (negative) and Other (Somnolent today although easily arousable to voice)
Skin: Warm, Dry, Cyanosis (negative), Jaundice (negative) and Bruising (Left upper extremity)
Labs/Micro/Reports
Lab Data
04/12/25 02:50
Laboratory Results
04/12/25
02:50
APTT 29.8
--- NOTE | 2025-04-12 08:00 | W.PN.VS ---
Today's Communication / Plan
-
Patient seen and examined at bedside with Dr. Johann Disla III, below plan reviewed with attending.
Assessment/Plan
-
Assessment: Patient s/p L mid forearm a line placement and now forearm swelling. 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
Repeat ultrasound today
Subjective Data
-
Date of Service: April 12, 2025
Patient seen and examined at bedside, reports lethargy and lower back/buttock pain. Denies LUE pain, motor weakness, or paresthesia.
Objective Data
-
Vital Signs
Temp Pulse Resp BP Pulse Ox
97.8 F 93 24 146/71 96
04/12/25 07:18 04/12/25 06:00 04/12/25 06:00 04/12/25 06:00 04/12/25 05:00
Intake and Output
04/11/25 04/12/25 04/13/25
06:59 06:59 06:59
Intake Total 1630 / 1690 1690 / 1690
Output Total 1600 / 1600 5410 / 5410 -1700 / -1700
Balance 30 / 90 -3720 / -3720 1700 / 1700
Intake:
Oral fluids 120 / 120 240 / 240
IV fluids (Total) 360 / 375 120 / 120
Heparin 360 / 375 120 / 120
Tube feeding 400 / 420 480 / 480
Feeding tube flush amount 500 / 525 600 / 600
Blood Products 250 / 250
Packed red blood cells 250 / 250
Blood Product Amount Infused ( 0 / 0 250 / 250
mL)
Packed Rbc Leukoreduced Unit 0 / 0 250 / 250
[id number]
Output:
Nighat Zamorano 1600 / 1600 600 / 600
True Urine Output from [facility] 4810 / 4810 -1700 / -1700
Lab Results
04/12/25 02:50
Calcium 8.5 mg/dl (8.4-10.2) 04/12/25 02:50
Phosphorus 6.0 mg/dl (2.5-4.5) H 04/10/25 03:02
Magnesium 1.9 mg/dl (1.6-2.3) 04/12/25 02:50
Total Bilirubin 0.8 mg/dl (0.2-1.3) 04/11/25 03:29
Direct Bilirubin 0.5 mg/dl (0.0-0.4) H 04/11/25 03:29
AST 40 U/L (17-59) 04/11/25 03:29
ALT 32 U/L (0-50) 04/11/25 03:29
Alkaline Phosphatase 85 U/L (38-126) 04/11/25 03:29
Total Protein 4.2 g/dl (6.3-8.2) L 04/11/25 03:29
Albumin 2.1 g/dl (3.5-5.0) L 04/11/25 03:29
Physical Exam
-
NAD, resting in bed comfortably, lethargic but easily arousable
Entire forearm bruised, very thin friable skin
Forearm soft, +motor/sensation in hand
+2 palapable radial
--- NOTE | 2025-04-12 08:09 | CON.GI ---
Addendum entered and electronically signed by Shahla Farley MD 04/12/25 16:19:
I personally performed a history and physical exam of the patient and discussed management with the resident. I reviewed the resident's note and agree with the documented findings and plan of care HPI/CC.
79-year-old male past medical history of A-fib on Eliquis, renal transplant [facility] with long complicated hospital course with initial admission for septic shock due to pyelonephritis with hydronephrosis and ELIZABETH, leading to need for dialysis
which was unable to tolerate due to his aortic stenosis and cardiogenic shock and underwent a TAVR April 06. He has had intermittent bleeding from multiple sources including epistaxis, bleeding around the dialysis catheter, he forearm hematoma,
hematuria. He has had thrombocytopenia as well with platelets most recently's 66,000. He also also had clotting with a DVT and pulmonary embolus. GI was consulted due to melena April 11. He required 1 unit of blood at that time but he has
required a total of 9 units of blood, 1 pool of platelets. His recent flowsheet from today now shows brown stool. Recommend IV PPI twice daily, monitor hemoglobin. Given his overall clinical status, would not proceed with endoscopy unless it was
urgent. It seems that his bleeding has now stopped, brown stool recorded today. Plan is for transfer to tertiary care center. GI will sign off please call with ?s or changes in clinical status.
Original Note:
Consultation
-
Date/Time Consultation Requested: 04-11-25
Date/Time Consultation Performed: 04-12-25
Requesting Provider: CHARLOTTE Toussaint
Performing Provider: Dr. Shahla Farley
Reason for Consultation: Melana
Medical History
Chief Complaint / HPI
Chief Complaint: Melana
History of Present Illness:
Johann Florentino, 79-year-old with medical history significant for permanent atrial fibrillation on apixaban, renal transplantation on mycophenolate and prednisone and severe aortic stenosis, was admitted to [facility] on 03-18-25 for septic shock secondary
to pyelonephritis with hydronephrosis and ELIZABETH. He was intubated on 03/21 and extubated on 03/25, subsequently requiring supplemental oxygen which has since been weaned off. He was also started on hemodialysis for his renal function, but he could not
tolerate it midway through dialysis on 04-01-25. This was felt to be secondary to his severe aortic stenosis with cardiogenic shock. He underwent an inpatient TAVR on 04-06-25. His hospitalization has been further complicated with intermittent
epistaxis involving the left nares, bleeding around HD catheter site, LUE DVT and LLL PE, left forearm hematoma with hemorrhage. He has had recurrent anemia and is status-post multiple transfusions. Also with thrombocytopenia, thought to be from
bone marrow suppression in setting of critical illness. He developed melana with loose stools in the evening of on 04-11-25 and received 1 pRBC. Hemodynamically stable and has been off pressors. No abdominal pain or distention, nausea, vomiting,
constipation, diarrhea. No fevers, chills, night sweats. He now has a new RUE swelling - vascular surgery following. Stool Hemoccult positive today.
Past Medical History
Past Medical History: Arrhythmias and Other (Renal transplant, permanent atrial fibrillation on Eliquis, hypertension, BPH)
Past Surgical History: Other (Renal transplant)
Social History
Tobacco: Non-Smoker
Alcohol: None
Drug: None
Family History
Family History: Reviewed & Not Pertinent
Allergies / Home Medications
Allergy/AdvReac Type Severity Reaction Status Date / Time
No Known Drug Allergies Allergy - Verified 03/18/25 16:11
�Medication �Instructions �Recorded
apixaban 5 mg tablet (Eliquis) 5 mg PO BID Blood Clot 08/11/18
Prevention/Tx
metoprolol tartrate 25 mg tablet 25 mg PO BID Blood Pressure 03/14/20
mycophenolate sodium 180 mg 720 mg PO BID Transplant 03/14/20
tablet,delayed release
amlodipine 5 mg tablet 5 mg PO DAILY Blood Pressure 10/04/22
cholecalciferol (vitamin D3) 10 10 mcg PO DAILY Supplement 10/04/22
mcg (400 unit) capsule (Vitamin D3)
belatacept 250 mg intravenous 450 mg IV QMONTH Transplant 07/22/23
solution
doxazosin 2 mg tablet 2 mg PO BID Urinary Issue 07/22/23
losartan 50 mg tablet 50 mg PO BID Blood Pressure 07/22/23
prednisone 2.5 mg tablet 2.5 mg PO BID Transplant 07/22/23
therapeutic multivitamin 1 tab PO DAILY Supplement 07/22/23
torsemide 5 mg tablet 5 mg PO SUWE Fluid 02/12/25
Retention/Swelling
fluticasone propionate 50 1 spray intranasal BID Allergies 03/24/25
mcg/actuation nasal
spray,suspension
sodium chloride 0.65 % nasal spray 2 spray intranasal QID Allergies 03/24/25
aerosol
Review of Systems
-
All other systems: A 12 pt ROS was Negative except as stated above in HPI
Vital Signs
Temp Pulse Resp BP Pulse Ox
97.8 F 93 24 146/71 96
04/12/25 07:18 04/12/25 06:00 04/12/25 06:00 04/12/25 06:00 04/12/25 05:00
Physical Exam
Exam
HEENT: Normocephalic, Anicteric and Atraumatic
Respiratory: Clear and Non Labored Respirations
Cardiac: S1/S2 and Irregular Rhythm
GI: Soft, Non Tender, Non Distended and Normal Bowel Sounds; Negative Organomegaly
Rectal: Brown and Hem Positive
Genito-urinary: No Costovertebral Tender
Musculoskeletal: No Clubbing, No Cyanosis and Edema (BL UE)
Neuro: Awake, Alert and Oriented
Psych: Calm
Results
WBC 12.4 10^3/uL (4.8-10.8) H 04/12/25 02:50
Hgb 7.9 g/dL (13.0-18.0) L 04/12/25 02:50
Hgb Cancelled 04/12/25 02:50
Hct 23.6 % (39.0-52.0) L 04/12/25 02:50
Hct Cancelled 04/12/25 02:50
MCV 92.9 fL (80.0-94.0) 04/12/25 02:50
Plt Count 66 10^3/uL (130-400) L 04/12/25 02:50
Absolute Neuts (auto) 12.5 10^3/uL (1.4-6.5) H 04/08/25 16:55
PT 14.4 Sec (11.4-14.6) 04/10/25 03:02
INR 1.11 04/10/25 03:02
APTT 29.8 Sec (23.4-35.0) 04/12/25 02:50
Sodium 137 mmol/L (135-145) 04/12/25 02:50
Potassium 4.1 mmol/L (3.5-5.1) 04/12/25 02:50
Chloride 109 mmol/L (98-107) H 04/12/25 02:50
Carbon Dioxide 25 mmol/L (22-30) 04/12/25 02:50
BUN 83 mg/dl (9-20) H 04/12/25 02:50
Creatinine 2.1 mg/dL (0.7-1.3) H 04/12/25 02:50
Calcium 8.5 mg/dl (8.4-10.2) 04/12/25 02:50
Total Bilirubin 0.8 mg/dl (0.2-1.3) 04/11/25 03:29
AST 40 U/L (17-59) 04/11/25 03:29
ALT 32 U/L (0-50) 04/11/25 03:29
Alkaline Phosphatase 85 U/L (38-126) 04/11/25 03:29
Hep Bs Antibody Negative 03/20/25 05:07
Hep B Core Total Ab Negative (Negative) 03/20/25 05:07
Hepatitis C Antibody Negative (Negative) 03/20/25 05:07
Diagnostic Image Results:
04-04-25: CT A-P: Right lower quadrant transplant kidney with severe hydronephrosis, similar to prior. There is small volume gas within the collecting system which may be sequelae of Disla catheter although infection is possible. Consider
correlation with urinalysis. mPulmonary embolus within the posterior left lower lobe segmental pulmonary artery. Colonic diverticulosis. New small volume free fluid in the presacral space. Pneumomediastinum which appears subtly increased from prior
and is of unknown etiology. Extensive interstitial opacities throughout the lung bases which is similar to recent prior chest and may represent edema or atypical infection/pneumonitis.
Prior GI Procedures:
Colonoscopy:
11-17-24: - Diverticulosis in the sigmoid colon and in the
descending colon.
- A single non-bleeding colonic angioectasia.
- Internal hemorrhoids.
Normal post-polypectomy site.
- The examination was otherwise normal.
- No specimens collected.
Assessment / Plan
-
Johann Florentino, 79-year-old with medical history significant for AFib on apixaban, renal transplantation on mycophenolate and prednisone and severe aortic stenosis, was admitted to [facility] on 03-18-25 for septic shock secondary to pyelonephritis with
hydronephrosis and ELIZABETH. He was intubated 03/21 and extubated 03/25, subsequently requiring supplemental oxygen which has since been weaned off. He was also started on hemodialysis for his renal function, but he could not tolerate it midway through
dialysis on 04-01-25. This was felt to be secondary his severe aortic stenosis with cardiogenic shock. He underwent an inpatient TAVR on 04-06-25. His hospitalization has been further complicated with intermittent epistaxis involving left nares,
bleeding around HD site, LUE DVT and LLL PE, left forearm hematoma with hemorrhage. He has had recurrent anemia and is s/p multiple transfusions. Also with thrombocytopenia, thought to be from bone marrow suppression in setting of critical illness.
He developed melana with loose stools in the evening of on 04-11-25 and received 1 pRBC. Hemodynamically stable and has been off pressors. No abdominal pain or distention, nausea, vomiting, constipation, diarrhea. No fevers, chills, night sweats.
Stool Hemoccult positive today.
Impression:
* Melana
* Recurrent anemia
* Recurrent thrombocytopenia
* Intermittent epistaxis from left nares
* Urinary retention and hematuria on CBI
* Bleeding around HD catheter
* LUE DVT and LLL PE this admission, treated with heparin drip, now off
* Sigmoid and descending colon diverticulosis
* Non-bleeding colonic angioectasia.
* Internal hemorrhoids.
* Septic shock secondary to acute pyelonephritis with Klebsiella bacteremia - resolved
* Acute hypoxic respiratory failure secondary to above - resolved
* Acute kidney injury with hydronephrosis of transplanted kidney - improved
* Severe aortic stenosis with cardiogenic shock status-post inpatient TAVR - resolved
* Permanent atrial fibrillation with rapid ventricular response this admission
* donor renal transplant with FSGS, recent T-cell rejection
Recommendations:
- Suspect the drop in hemoglobin is multifactorial in setting of multiple bleeding sites (BL UE, blood in urine, nose and stool).
- He has a known DVT and PE, and possibly a new DVT in RUE, however, he has had recurrent H&H drops requiring multiple transfusions this admission.
- With multiple possible sites as sources of active bleeding, would recommend holding anticoagulation.
- IV PPI BID.
- Transfuse to keep hemoglobin >7.
- Ongoing discussions regarding a potential transfer to [facility] or [facility] (site of renal transplant).
-
-
Thank you for consultation and allowing me to participate in the patient's care. Please call the urologic surgeon GI physician during the after hours with any questions or concerns.
[2025-04-12 08:15] LABS: Glucose - Point of Care 202 mg/dl (70-99)
--- NOTE | 2025-04-12 08:21 | W.PN.HOSP.TC ---
Today's Communication/Plan
-
Continue ASA 81 mg daily
Stop all anticoagulation
See plan
Assessment / Plan
Assessment / Plan
Physical Exam
General: No Apparent Distress
HEENT: Normocephalic and Other (dobhoff; dried blood left nare )
Respiratory: Clear to Auscultation
Cardiac: Regular Rhythm, S1/S2 and Murmur
GI: Soft and Nontender. Positive bowel sounds.
Genito-urinary: Other (esteves, hematuria while on CBI)
Musculoskeletal: No Clubbing and Other (left arm wrapped with compression)
Skin: Warm
Neuro: AO x 3
Psych: Calm
Assessment/Plan
79-year-old with history of end-stage renal disease status post kidney transplant 2019 on antirejection medications, hypertension, hyperlipidemia, atrial fibrillation on Eliquis, urinary retention status post catheter placement several days prior to
admission presenting to the emergency department with fever and chills as well as weakness, admitted for sepsis secondary to transplant pyelonephritis, acute renal failure of transplanted kidney with development of acute hypoxic respiratory failure,
inability to tolerate HD secondary to severe and now s/p TAVR 04/06.

Left Upper Extremity Hematoma
Likely contained pseudoaneurysm
-swelling started after removaL PIV; arterial line in setting of thrombocytopenia/AC
-arterial US/angiogram 04/09/25 with active extravasation in left forearm with associated hematoma
-appreciate Vascular surgery input - based on comorbidities/skin tissue integrity trying to avoid surgical intervention - continue karl bandage wrap and compression
-Per vascular surgeon, plan to repeat arterial duplex today; if pseudoaneurysm present consider IR intervention (high risk complications with surgery)
-continue karl bandage compression
Acute blood loss anemia secondary to multiple sources: LUE hematoma, melena (see below), hematuria (see below), epistaxis
(see below - prior hospitalization with other bleeding episodes, patient has received many PRBC this admission)
-So far, patient has received 9 units of red blood cells this hospitalization
-Follow CBC
Thrombocytopenia
-HIT panel testing was negative
-appreciate Heme eval
-s/p 1 unit PLT (on 04/09/25) in setting of bleeding
-Platelet counts now stable in the 60s
-Appreciate hematology
Severe aortic stenosis with cardiogenic shock status post TAVR on 04/06
- RHC 03/30 indicated aortic stenosis as source of low cardiac output/cardiogenic shock.
- s/p cardiac cath 04/02/25 - non-obstructive CAD
- Decision made for more urgent TAVR in hopes of tolerating HD (see below)
- s/p TAVR CT work-up with incidental finding of PE (see below)
- Continue ASA 81 mg daily (received ASA 325 on 04/02/25)
- Appreciate CTS, Youth Program Director, Cardiology
- Dr. Yuri Cunningham (via [employer] communication on 04/12/25) mentioned that holding anticoagulation right now (see below) is reasonable; in the fdc, patient should be on ASA for the TAVR if not on
anticoagulation (to prevent leaflet thrombosis). If and when patient goes on any anticoagulation, then no Aspirin needed.
- Per Dr. Cunningham, If not on AC and having active bleeding, would hold ASA. Once no longer having active bleeding, would resume ASA, but only if not on AC. If on AC, should not get ASA.
History of renal transplant in 2019 - donor renal transplant 2019 from [facility]
Acute on chronic renal failure requiring hemodialysis
-Recent Treatment for rejection in December.
-Losartan on hold
-Cellcept resumed 03/30/25 nephrology
-On steroids -Prednisone 2.5 mg BID
-Belatacept ordered per renal for 04/09/25
-s/p temporary hemodialysis catheter
-Required hemodialysis on admission, received multiple session, but due to poor tolerance of HD, 03/29/25, transitioned to CRRT. Line clotted, off CRRT since.
-HD attempt on 04/01/25 resulted in tachycardia and tachypnea during HD, Severe aortic stenosis likely limiting factor for hemodynamic instability during HD
-*patient is now s/p TAVR. Renal function is stable/daily improvement and patient is non-oliguric therefore HD not needed to be reattempted. Post contrast again on 04/09 - BUN continues to trend down, creatinine stable. Appreciate Renal eval.
-I communicated (via [employer] Text, on 04/12/25) with patient's chief internal auditor Dr. Muhammad, who agreed that patient would be best served at his transplant center, [facility]
-I communicated (via [employer] Text, on 04/12/25) with urologist Dr. Jim: urologically i have concerns about a hyrdonephrotic/ infected transplant- that is aside from the hematuria issue
Hydronephrosis of transplanted kidney
- Obstructive uropathy of transplant kidney, Esteves placed 03/15/25
- Maintain Esteves catheter
- Patient considering TURP
- Despite addressing obstruction with Esteves Catheter and addressing urinary retention, patient's hydronephrosis has not improved
Acute hypoxic respiratory failure requiring intubation 03/21-03/25
-Likely multifactorial secondary to pulmonary edema versus pneumonia versus interstitial lung disease
-s/p empiric high dose steroids for possible ILD, now on home prednisone
-with improvement in CXR post fluid removal with HD, may have been related to fluid; s/p RHC with PCWP 8 (post fluid removal)
-s/p antibiotic course for possible pneumonia
-Pulmonary has signed off as 04/12/25
Septic shock associated with acute kidney injury, lactic acidosis secondary to Klebsiella bacteremia likely secondary to urinary tract infection
Transplant kidney pyelonephritis with Klebsiella and E. faecalis
Immunosuppressed
-s/p 14 days IV antibiotics (completed 04/02/25)
-s/p pressor administration, now off
Pneumomediastinum
Pulmonary embolus within the posterior left lower lobe segmental pulmonary artery on CT Chest on 04/04/25
Short-segment left axillary vein thrombus
-Seen on CT Chest done in preparation for aortic valve surgery
-Pulmonary embolization from temporary dialysis line (which had previously clotted)??
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
-I communicated (via [employer] Text, on 04/12/25) with property and casualty insurance agent Dr. Manjarrez who recommended against IVC filter as the patient has no lower extremity clot, and she also said not to maintain anticoagulation solely for short-segment axillary
vein clot; she recommended hold anticoagulation; she said patient seems to be at the point of medical futility.
-Cardiology (Dr. Yuri Cunningham) mentioned via [employer] communication on 04/12/25 that if those blood clots and patient's atrial fibrillation are the only indications for anticoagulation, would favor a lower intensity strategy with warfarin as
suggested by Dr. Tilley (occupational therapy co director who saw patient on 04/12/25) -- after occupational therapy co director mentioned their recommendations on [employer] Text communication, Dr. Manjarrez recommended against anticoagulation given no lower extremity clot
-Later in the [employer] Text communication, Dr. Cunningham mentioned that holding anticoagulation is reasonable at this time
-Will continue Aspirin 81 mg daily for now for patient's TAVR
Hyperglycemia
-continue sliding scale coverage and NovoLog with Accu-Cheks
Bleeding around HD catheter, 04/04/25
-Area cleaned, had bleeding noted from one of the stitches; stitch removed, after injecting lidocaine new stitch placed at a different location. Hemostasis achieved. Appreciate animal keeper
Acute blood loss anemia with baseline chronic macrocytic anemia
Melena on 04/11-04/12
Epistaxis and Hematuria
-Status post total of 9 units of PRBCs so far
-GI saw patient on 04/12/25, no endoscopy given current patient's current condition, GI has signed off
-Continue IV PPI BID
-I communicated (via [employer] Text, on 04/12/25) with property and casualty insurance agent Dr. Manjarrez who recommended against IVC filter as he patient no lower extremity clot, and she also said not to maintain anticoagulation solely for short-segment axillary vein
clot; hold anticoagulation; she said patient seems to be at the point of medical futility.
-I spoke over the phone with urologist Rafita Jim this morning 04/12/25, discussed patient's gross hematuria, CBI, urology can take patient to OR later this week, hematuria could be blood in prostate, infection, transplanted kidney is still
obstructed and possibly infected, follow urine culture
Epistaxis
-Previously evaluated by ENT, status post left NC packing. now removed on 03/26/25. Appears deviated septum per ENT.
-Left nostril with Clot
-s/p topical bacitracin course
-gentle nasal saline sprays in b/l nasal cavities 1-2 sprays each nostril 3-4 times daily per ENT
-recall ENT if rebleeding occurs
Left Eye Subconjunctival Hemorrhage
-Developed overnight 04/03/25-04/04/25
-Continue to monitor
Toxic metabolic encephalopathy likely secondary to shock versus ICU delirium versus hypoxemia versus uremia
-Appeared to be improving when off sedation
Atrial fibrillation with rapid ventricular response
Permanent Atrial Fibrillation
- No anticoagulation at this time
- Continue Metoprolol.
Multifactorial Anemia- Iron studies noted from 03/26/25.
Sacrum Stage 2 Pressure Injury
-Wound care
Nutrition- DHT feeds in addition to diet- Appetite poor.
Ex Smoker
DVT PPX - IV heparin gtt
Diet: Tube feeds
Code status - Full Code
Progress on Transferring Patient to a Tertiary Care Facility
On 04/12/25, I called patient's Beata and patient's daughter Yolanda, and I answered all of their questions and concerns to satisfaction. I contacted Dr. Muhammad (patient's chief internal auditor) per their request.
On 04/12/25, I spoke with hospitalist Dr. Gross at [facility], and he was thinking that since patient's kidney function is stable (creatinine stable, without any dialysis for more than 1 week), patient does not need to be transferred
right now. He recommended maybe a CT Abd/Pelvis to see whether the bleeding could be coming from his transplanted kidney. He also said that the hydronephrosis based on [facility] records is chronic. I conveyed this message to urologist Dr. Jim
and patient's chief internal auditor Dr. Muhammad, who still recommended transfer given that patient's transplanted kidney is still with hydronephrosis, and possibly still infected despite antibiotics and Esteves Catheter. I then called [facility] transfer
center and spoke with [facility] Dr. Medina at 1:19 pm, and he mentioned that there is no transplant doctor services at [facility]; therefore I then spoke with transplant physician Dr. lAex Osborn (at the [facility]) around 1:51 PM, and he recommended that since patient got his transplant at [facility], he should go there. I conveyed this message to the other doctors involved in patient's care, including but not limited to "Alla"Hernán (urologist) and Dr. Muhammad (patient's outpatient chief internal auditor). Dr. Muhammad spoke with patient's and daughter, and mentioned that potential transfer was not just about a chronically, hydronephrotic transplanted kidney, but a transplant
recipient with acute illness, requiring a higher level of care. Dr. Muhammad then spoke with the transplant chief internal auditor (Dr. Crescencio Tran) who wondered what can they do there (at [facility]) that we cannot do here -- Dr. Crescencio Tran told Dr. Muhammad
that he will speak to the transfer team, and let Dr. Muhammad know. Family also said that they spoke to Lavon at the transplant team at [facility]; they spoke with Dr. Valencia and he supposedly said he will accept patient if family initiated
transfer.
Total Critical Care Time was 240 minutes. I was immediately available to the patient and staff. I personally examined, reviewed labs, diagnostic images/reports, interpretations, treatment plans, discussed patient care with other providers and
family, entered orders as appropriate and documented the medical record. Extensive conversation between myself and multiple other physicians, as well as multiple phone calls to attempt to transfer patient.
Anticipated Discharge: > 48 hours
Subjective/Interval History
-
Date of Service: April 12, 2025
Patient was seen and examined. Overnight, he developed blood in his urine and also blood in his stools.
Objective Data
-
Labs:
Laboratory Results
04/11/25 04/12/25 04/12/25
20:39 02:50 02:50
WBC 12.4 H
Hgb 7.8 L 7.9 L Cancelled
Hct 23.6 L
Plt Count
APTT
Sodium
Potassium
Chloride
Carbon Dioxide
BUN
Creatinine
Glucose
Calcium
04/12/25 04/12/25 04/12/25
02:50 08:00 14:00
WBC
Hgb Pending Pending
Hct Cancelled Pending Pending
Plt Count 66 L
APTT 29.8
Sodium 137
Potassium 4.1
Chloride 109 H
Carbon Dioxide 25
BUN 83 H
Creatinine 2.1 H
Glucose 124 H
Calcium 8.5
Vital Signs:
Vital Signs
Temp Pulse Resp BP Pulse Ox
97.8 F 93 24 146/71 96
04/12/25 07:18 04/12/25 06:00 04/12/25 06:00 04/12/25 06:00 04/12/25 05:00
I&O
04/11/25 04/12/25 04/13/25
06:59 06:59 06:59
Intake Total 1630 / 1690 1690 / 1690
Output Total 1600 / 1600 5410 / 5410 -1700 / -1700
Balance 30 / 90 -3720 / -3720 1700 / 170
--- NOTE | 2025-04-12 08:30 | PTCARENOTE ---
Received pt @ change of shift. Pt. drowsy, awakens to verbal stim; ox3; flat and forgetful @ x's; c/o pain in buttocks, improved w repositioning. A fib on monitor. SpO2 97% on RA. +BS, abd soft/round. R nare dobhoff in place; TF infusing per
orders. Inc of bowel; new melena overnight; heme +; MD team aware. [address]; running clear/light pink/no clots. CBI on hold x1hr to obtain urine culture, obtained and urine bloody. Dr. Jim aware and CBI restarted. LUE +3
edema/ecchymotic; KRISSY wrap in place; neurovascular checks maintained per orders- see flow sheet. #20 R FA patent, dressing intact. R midline patent, redressed by VAT. H&H drawn and sent to lab; awaiting results. Complete AM hygiene. Pt. assisted
w active repositioning in bed. Pt. req assist w feeding this AM; appetite improving. Call tao placed w in reach.
[2025-04-12 08:59] LABS: Hematocrit 24.8 % (39.0-52.0); Hemoglobin 8.2 g/dL (13.0-18.0)
[2025-04-12] MEDS: NOVOLOG FLEXPEN 3 UNITS SC ×2 (08:59→17:57)
[2025-04-12] MEDS: NOVOLOG FLEXPEN-HIGH RESISTANCE 4 UNITS SC (08:59)
[2025-04-12] MEDS: SENOKOT-S 1 TABLET PO ×2 (08:59→19:47)
[2025-04-12] MEDS: DELTASONE 2.5 MG PO ×2 (08:59→19:47)
[2025-04-12] MEDS: LOPRESSOR 25 MG PO ×2 (08:59→19:47)
[2025-04-12] MEDS: CELLCEPT 1000 MG PO ×2 (09:00→21:13)
[2025-04-12] MEDS: LOW STRENGTH ASPIRIN PO (09:00)
[2025-04-12] MEDS: DESENEX/MITRAZOL/ZEASORB 1 APPLIC TOPICAL ×2 (09:00→19:50)
[2025-04-12] MEDS: NSS (PRESERVATIVE FREE) 10 ML IV ×2 (09:01→19:46)
[2025-04-12] MEDS: PROTONIX IV 40 MG IV ×2 (09:01→19:47)
[2025-04-12] MEDS: MIRALAX PO (09:01)
[2025-04-12] MEDS: OCEAN, SALINE MIST 1 SPRAYS NASAL ×3 (09:02→19:54)
--- NOTE | 2025-04-12 11:47 | W.PN.NEPH.PH ---
Today's Communication / Plan
-
follow lab s
await trasnfer
Assessment/Plan
-
This is a 79-year-old gentleman who follows in our office with Dr. Muhammad after donor renal transplant 2019 from [facility]. His transplant course has been complicated by development of nephrotic range proteinuria as well as recent
cellular rejection December of this year. The episodes treated with Solu-Medrol. His creatinine has risen quickly over time in the last several months. He has gone from a creatinine around 2 now up to 4.4. He was noted to have hydronephrosis of
the transplanted kidney recently on ultrasound as well as CT scan. Esteves catheter was placed by urology a few days ago. His appetite has been poor as of late. Recently he also developed fever and malaise and this has brought him to the emergency
room. He was noted to be febrile in the ER. Blood pressure was stable though lower than his home readings of 132. He was 100 systolic in the ER. Creatinine was 4.7 with elevated lactate level and elevated white count. CT of the abdomen and
pelvis were performed with suspicion for pyelonephritis of the transplant. We are asked to assist in management of his renal issues.
Assessment
Sepsis syndrome, possible pyelonephritis
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
donor renal transplant with FSGS, recent T-cell rejection
Obstructive uropathy, Esteves catheter in place
ELIZABETH..
Anemia
Hyponatremia
lactic acidosis
TAVR 04/06/25
LUE arterial oozing
COMMUNITY HEALTH REPRESENTATIVE-He had been making outpatient arrangements for eventual ESRD and transplant evaluation at [place]/previously on peritoneal dialysis prior to transfer
Plan
complicated hospital course sepsis, UTI, Status post TAVR 04/06/2025, protracted anemia from bleeding multiple sites
stable renal function and non oliguric
no need of HD however given bleeding risk from IV site, will still keep HD line until safe to remove
last belatacept dose was 04/09 (275mg/weight based), continue pred/MMF
TF through DHT , wts stable and stable resp status
prn transfusion , AC on hold , CBI per
agree with transfer to tertiary center suggested by primary and
d/w pt and nursing
High risk situation
-
-
Date of Service: April 12, 2025
CC / HPI / ROS
-
Chief Complaint:
Sepsis
History of Present Illness:
ELIZABETH/Cr stable 2.1
BP stable
s/p CT chest 04/05 am
Hgb down to 7 again
off heparin gtt for PE, left upper arm DVT
plts still low 66
s/p LUE agram 04/09
Review of Systems:
non oliguric with esteves
tube feeding
feels tired with minimal exertion
no cp, no sob at rest
Labs
-
Labs:
WBC 12.4 10^3/uL (4.8-10.8) H 04/12/25 02:50
RBC 2.54 10^6/uL (4.70-6.10) L 04/12/25 02:50
Plt Count 66 10^3/uL (130-400) L 04/12/25 02:50
Sodium 137 mmol/L (135-145) 04/12/25 02:50
Potassium 4.1 mmol/L (3.5-5.1) 04/12/25 02:50
Chloride 109 mmol/L (98-107) H 04/12/25 02:50
Carbon Dioxide 25 mmol/L (22-30) 04/12/25 02:50
BUN 83 mg/dl (9-20) H 04/12/25 02:50
Creatinine 2.1 mg/dL (0.7-1.3) H 04/12/25 02:50
eGFR 31.43 04/12/25 02:50
Glucose 124 mg/dl (70-99) H 04/12/25 02:50
Calcium 8.5 mg/dl (8.4-10.2) 04/12/25 02:50
Phosphorus 6.0 mg/dl (2.5-4.5) H 04/10/25 03:02
Jpv-I-Ckhalbyvpqw Pept 74799 pg/ml 04/08/25 16:55
Albumin 2.1 g/dl (3.5-5.0) L 04/11/25 03:29
Physical Exam
-
Vital Signs:
Vital Signs
Temp Pulse Resp BP Pulse Ox
97.8 F 105 24 163/87 97
04/12/25 07:18 04/12/25 08:59 04/12/25 06:00 04/12/25 08:59 04/12/25 10:50
Cardiovascular:: Irregular rate and rhythm
Respiratory:: Bilateral: Coarse
Lung Excursion:: Normal
Abdomen:: Nontender and Soft
Bowel Sounds:: Normal
Extremity Edema:: None: Bilateral:
Esteves Catheter: Yes
[2025-04-12] MEDS: DILAUDID 0.5 MG IV (12:37)
[2025-04-12 13:00] LABS: Glucose - Point of Care 124 mg/dl (70-99)
[2025-04-12] MEDS: NOVOLOG FLEXPEN-HIGH RESISTANCE SC (14:46)
[2025-04-12] MEDS: NOVOLOG FLEXPEN SC (14:46)
[2025-04-12] MEDS: ROXICODONE 5 MG PO ×2 (14:56→19:08)
[2025-04-12 15:03] LABS: Hematocrit 25.6 % (39.0-52.0); Hemoglobin 8.2 g/dL (13.0-18.0)
--- NOTE | 2025-04-12 17:15 | CM ---
Discharge POC: Awaiting confirmation of acceptance to [facility] for specialized acute care services regarding previous kidney transplant complicated with ongoing medical issues. Physician transfer request previously forwarded.
[2025-04-12] MEDS: NOVOLOG FLEXPEN-HIGH RESISTANCE 2 UNITS SC (17:57)
[2025-04-12 18:07] LABS: Glucose - Point of Care 151 mg/dl (70-99)
--- NOTE | 2025-04-12 19:40 | PTCARENOTE ---
Report given to IMU RN and pt. transferred via bed on teletypesetter monitor to rm [id number] w family and belongings. No further needs from this RN.
[2025-04-12] MEDS: MELATONIN 5 MG PO (19:47)
[2025-04-12 21:31] LABS: Glucose - Point of Care 249 mg/dl (70-99)
--- NOTE | 2025-04-12 21:36 | W.PN.UPDATE ---
Update Note
Progress Note Update
Conversations ongoing among patients various providers today.
We were initially consulted about low platelets with concern for HIT. TARI returned negative but platelets have not recovered and are stable in the 60's.
A small PE was incidentally note on 03/14 pre-TAVR CT chest and he has a L axillary vein clot, but lower extremity Dopplers negative.
He has had bleeding aound HD catheter, epistaxis, melena 04/11- 04/12, and most recently gross hematuria.
Suggest holding anticoagulation for now given hematuria, thrombocytopenia and absence of lower extremity clot.
He continues on baby aspirin daily s/p TAVR.
Will continue to follow closely.
[2025-04-13] VITALS (12 sets, daily range): BP systolic 115–183; BP diastolic 56–98; BMI 22.7
[2025-04-13] MEDS: LOPRESSOR 2.5 MG IV (00:21)
[2025-04-13] MEDS: ROXICODONE 5 MG PO ×3 (02:07→17:47)
--- NOTE | 2025-04-13 05:16 | PTCARENOTE ---
Caring for pt overnight. Pt was a transfer from ICU at shift change. Family at bedside. aaox3 but confused and forgetful at times overnight. aflutter/afib on monitor. Remains RA but tachypneic & SOB at times during rest and exertion. 3 way esteves &
CBI running, tried slowing it down but output became dark red. Currently flowing and is a peach color, no clots. dobhoff & TF running at goal. diet order and able to take pills in applesauce. SCDs. Oxy PO given once but c/o generalized pain. Q2T.
LUE remains +2-3, elevated on pillow, neurovascular chekc Q2h, WNL despite swelling, great radial pulse. One stool overnight, unable to heme test. NO other issues at this time. Pt resting. will monitor.
[2025-04-13 05:19] LABS: Hematocrit 23.6 % (39.0-52.0); Hemoglobin 7.7 g/dL (13.0-18.0); Mean Corp Hgb Conc. 32.6 g/dL (33.0-37.0); Mean Corpuscular Volume 93.3 fL (80.0-94.0); Platelet Count 71 10^3/uL (130-400); Red Cell Dist. Width 17.7 % (11.5-14.5)
[2025-04-13 05:36] LABS: Blood Urea Nitrogen 77 mg/dl (9-20); Calcium 8.5 mg/dl (8.4-10.2); Carbon Dioxide 27 mmol/L (22-30); Chloride 110 mmol/L (98-107); Estimated Creatinine Clearance 30 ml/min; Glucose 119 mg/dl (70-99); Potassium 3.8 mmol/L (3.5-5.1); Sodium 136 mmol/L (135-145); eGFR 31.43
--- NOTE | 2025-04-13 07:18 | W.PN.URO.CBU ---
Today's Communication / Plan
-
continue CBI
Assessment / Plan
-
hx of renal transplant with hydro of transplant kidney
urinary retention
UTI- urosepsis
hematuria
very difficult
still with hematuria
in addition- hydro of transplant kidney remains- despite esteves/treatment of urinary retention- although clearly it is not a complete obstruction as pt is making urine and cr (although elevated) is at his baseline- and this has been present since at
least dec- transplant team at [facility] says they are aware- some concern however with UTi and hydro could there be infx in kidney
in terms of hematuria- is not resolving with hold of heparin- urologic option is to take to OR (/next saturday) for cysto and possible fulguration- obviously high risk for multiple reasons
will discuss with care team with the option of transfer still being considered
Diagnosis
-
Date of Service: April 13, 2025
-
Patient Urologic Diagnosis:
hx of renal transplant
urinary retention
hydro of renal transplant
UTI
hematuria
Subjective
-
pt with continued hematuria requiring moderate rate cbi
off heparin- but still with thrombocytopenia and on asa
ucx pending
ua now difficult to gauge but cr stable
Objective
-
Vital Signs
Temp Pulse Resp BP Pulse Ox
98.2 F 96 7 148/56 99
04/13/25 03:07 04/13/25 06:00 04/13/25 06:00 04/13/25 06:00 04/13/25 06:00
Intake and Output
04/12/25 04/13/25 04/14/25
06:59 06:59 06:59
Intake Total 1690 / 1690 90 / 90
Output Total 5410 / 5410 600 / 600
Balance -3720 / -3720 -510 / -510
Intake:
Oral fluids 240 / 240
IV fluids (Total) 120 / 120
Heparin 120 / 120
Tube feeding 480 / 480 40 / 40
Feeding tube flush amount 600 / 600 50 / 50
Blood Product Amount Infused ( 250 / 250
mL)
Packed Rbc Leukoreduced Unit 250 / 250
[id number]
Output:
Urine, Esteves 600 / 600
True Urine Output from CBI 4810 / 4810 600 / 600
Laboratory Results
04/13/25 04:58
04/13/25 04:58
Review of Systems
-
Unable to obtain full review of systems at this time due to: Other (pt appears somewhat confused this am- but says he just feels tired)
Physical Exam
-
General - no acute distress
Abdomen - soft, non-tender
Genitalia - [address] way [address]- urine on moderate drip cbi- clear in tube but red in bag
[2025-04-13 08:03] LABS: Glucose - Point of Care 139 mg/dl (70-99)
--- NOTE | 2025-04-13 08:06 | W.PN.HOSP.TC ---
Today's Communication/Plan
-
Hold Aspirin starting tomorrow AM, Type and Cross tomorrow AM, for OR with Dr. Jim on 04/15/25
See plan
Assessment / Plan
Assessment / Plan
Physical Exam
General: No Apparent Distress
HEENT: Normocephalic and Other (dobhoff; dried blood left nare )
Respiratory: Clear to Auscultation
Cardiac: Regular Rhythm, S1/S2 and Murmur
GI: Soft and Nontender. Positive bowel sounds.
Genito-urinary: Other (esteves, hematuria while on CBI)
Musculoskeletal: No Clubbing and Other (left arm wrapped with compression)
Skin: Warm
Neuro: AO x 3
Psych: Calm
Assessment/Plan
79-year-old with history of end-stage renal disease status post kidney transplant 2019 on antirejection medications, hypertension, hyperlipidemia, atrial fibrillation on Eliquis, urinary retention status post catheter placement several days prior to
admission presenting to the emergency department with fever and chills as well as weakness, admitted for sepsis secondary to transplant pyelonephritis, acute renal failure of transplanted kidney with development of acute hypoxic respiratory failure,
inability to tolerate HD secondary to severe and now s/p TAVR 04/06.

Left Upper Extremity Hematoma
Likely contained pseudoaneurysm -- status post left mid forearm A-line placement, then forearm swelling, then found to have likely contained pseudoaneurysm based on imaging
-swelling started after removaL PIV; arterial line in setting of thrombocytopenia/AC
-arterial US/angiogram 04/09/25 with active extravasation in left forearm with associated hematoma
-appreciate Vascular surgery input - based on comorbidities/skin tissue integrity trying to avoid surgical intervention - continue karl bandage wrap and compression
-Repeat arterial duplex 04/12/25 -- with no evidence of active extravasation or pseudoaneurysm
-Continue karl wrap for gentle compression at the LUE -- edema has improved
-Continue daily or PRN dressing change for forearm skin tear, wound care nursing consulted
Acute blood loss anemia secondary to multiple sources: LUE hematoma, melena (see below), hematuria (see below), epistaxis
(see below - prior hospitalization with other bleeding episodes, patient has received many PRBC this admission)
-So far, patient has received 9 units of red blood cells this hospitalization
-Follow CBC
Thrombocytopenia
-HIT panel testing was negative
-appreciate Heme eval
-s/p 1 unit PLT (on 04/09/25) in setting of bleeding
-Platelet counts now stable in the 60s
-Appreciate hematology: last note from hematology on 04/13/25 suggested holding anticoagulation for now given hematuria, thrombocytopenia and absence of lower extremity clot.
Severe aortic stenosis with cardiogenic shock status post TAVR on 04/06
- RHC 03/30 indicated aortic stenosis as source of low cardiac output/cardiogenic shock.
- s/p cardiac cath 04/02/25 - non-obstructive CAD
- Decision made for more urgent TAVR in hopes of tolerating HD (see below)
- s/p TAVR CT work-up with incidental finding of PE (see below)
- Has been getting Aspirin 81 mg daily -- last dose 04/13/25 morning -- hold further Aspirin for now given that patient going to OR with urology on 04/15/25
- Appreciate CTS, Field Hauler, Cardiology
- Dr. Yuri Larios (via [employer] communication on 04/12/25) mentioned that holding anticoagulation right now (see below) is reasonable; in the retirement, patient should be on ASA for the TAVR if not on
anticoagulation (to prevent leaflet thrombosis). If and when patient goes on any anticoagulation, then no Aspirin needed. Per Dr. Larios, if not on anticoagulation and having active bleeding, would hold Aspirin. Once no longer
having active bleeding, would resume Aspirin, but only if not on anticoagulation. If on anticoagulation, should not get Aspirin.
History of renal transplant in 2019 - donor renal transplant 2019 from [facility]
Acute on chronic renal failure requiring hemodialysis
-Recent Treatment for rejection in December 2024
-Losartan on hold
-Cellcept resumed 03/30/25 nephrology
-On steroids - Prednisone 2.5 mg BID
-Belatacept ordered per renal for 04/09/25
-Status post temporary hemodialysis catheter
-Required hemodialysis on admission, received multiple session, but due to poor tolerance of HD, 03/29/25, transitioned to CRRT. Line clotted, off CRRT since.
-HD attempt on 04/01/25 resulted in tachycardia and tachypnea during HD, Severe aortic stenosis likely limiting factor for hemodynamic instability during HD
-*patient is now s/p TAVR. Renal function is stable/daily improvement and patient is non-oliguric therefore HD not needed to be reattempted. Post contrast again on 04/09 - BUN continues to trend down, creatinine stable. Appreciate Renal eval.
-I communicated (via [employer], on 04/12/25) with patient's account information clerk Dr. Muhammad, who agreed that patient would be best served at his transplant center, [facility]. I communicated (via [employer], on 04/12/25) with urologist
Hernán: urologically he has concerns about a hydronephrotic/ infected transplant- that is aside from the hematuria issue -- on 04/13/25, I discussed case together with Dr. Gross and urologist Dr. Jim over the phone -- Dr. Gross mentioned that
given patient's renal function is currently stable, Transplant doctors will not to anything different at [place] at this time, he recommended further work-up with CT imaging and further evaluation with urology, and no transfer right now to [place]
[facility]
Hydronephrosis of transplanted kidney
- Obstructive uropathy of transplant kidney, Esteves placed 03/15/25
- Maintain Esteves catheter
- Patient considering TURP
- Despite addressing obstruction with Esteves Catheter and addressing urinary retention, patient's hydronephrosis has not improved
Acute hypoxic respiratory failure requiring intubation 03/21-03/25
-Likely multifactorial secondary to pulmonary edema versus pneumonia versus interstitial lung disease
-s/p empiric high dose steroids for possible ILD, now on home prednisone
-with improvement in CXR post fluid removal with HD, may have been related to fluid; s/p RHC with PCWP 8 (post fluid removal)
-s/p antibiotic course for possible pneumonia
-Pulmonary has signed off as 04/12/25
Septic shock associated with acute kidney injury, lactic acidosis secondary to Klebsiella bacteremia likely secondary to urinary tract infection
Transplant kidney pyelonephritis with Klebsiella and E. faecalis
Immunosuppressed
-s/p 14 days IV antibiotics (completed 04/02/25)
-s/p pressor administration, now off
Pneumomediastinum
Pulmonary embolus within the posterior left lower lobe segmental pulmonary artery on CT Chest on 04/04/25
Short-segment left axillary vein thrombus
-Seen on CT Chest done in preparation for aortic valve surgery
-Pulmonary embolization from temporary dialysis line (which had previously clotted)??
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
-I communicated (via [employer], on 04/12/25) with qa engineer Dr. Manjarrez who recommended against IVC filter as the patient has no lower extremity clot, and she also said not to maintain anticoagulation solely for short-segment axillary
vein clot; she recommended hold anticoagulation; she said patient seems to be at the point of medical futility.
-Additionally, last note from hematology on 04/13/25 suggested holding anticoagulation for now given hematuria, thrombocytopenia and absence of lower extremity clot.
-Cardiology (Dr. Yuri Larios) mentioned via [employer] communication on 04/12/25 that if those blood clots and patient's atrial fibrillation are the only indications for anticoagulation, would favor a lower intensity strategy with warfarin as
suggested by Dr. Tilley (bobbin painter who saw patient on 04/12/25) -- after bobbin painter mentioned their recommendations on [employer] communication, Dr. Manjarrez recommended against anticoagulation given no lower extremity clot
-Later in the [employer] communication, Dr. Larios mentioned that holding anticoagulation is reasonable at this time
-Has been getting Aspirin 81 mg daily -- last dose 04/13/25 morning -- hold further Aspirin for now given that patient going to OR with urology on 04/15/25
Hyperglycemia
-continue sliding scale coverage and NovoLog with Accu-Cheks
Bleeding around HD catheter, 04/04/25
-Area cleaned, had bleeding noted from one of the stitches; stitch removed, after injecting lidocaine new stitch placed at a different location. Hemostasis achieved. Appreciate progressive care unit registered nurse
Acute blood loss anemia with baseline chronic macrocytic anemia
Melena on 04/11-04/12
Epistaxis
Hematuria developed on 04/11/25-04/12/25
-Status post total of 9 units of PRBCs so far
-GI saw patient on 04/12/25, no endoscopy given current patient's current condition, GI has signed off
-Continue IV PPI BID
-I communicated (via [employer], on 04/12/25) with qa engineer Dr. Manjarrez who recommended against IVC filter as he patient no lower extremity clot, and she also said not to maintain
anticoagulation solely for short-segment axillary vein clot; hold anticoagulation; she said patient seems to be at the point of medical futility.
-Dr. Jim to take patient to OR on 04/15/25 for cystoscopy and fulguration
-Continue CBI
Epistaxis
-Previously evaluated by ENT, status post left NC packing. now removed on 03/26/25. Appears deviated septum per ENT.
-Left nostril with Clot
-s/p topical bacitracin course
-gentle nasal saline sprays in b/l nasal cavities 1-2 sprays each nostril 3-4 times daily per ENT
-recall ENT if rebleeding occurs
Left Eye Subconjunctival Hemorrhage
-Developed overnight 04/03/25-04/04/25
-Continue to monitor
Toxic metabolic encephalopathy likely secondary to shock versus ICU delirium versus hypoxemia versus uremia
-Resolved
Atrial fibrillation with rapid ventricular response
Permanent Atrial Fibrillation
Atrial Flutter
- No anticoagulation at this time given bleeding/anemia/thrombocytopenia
- Aspirin is on hold as above
- Continue Metoprolol.
Hypertension
-Home Amlodipine 5 mg daily resumed on 04/13/25
-Holding Losartan for now given tenuous kidney situation with urinary bleeding
Multifactorial Anemia
-Iron studies noted from 03/26/25.
Sacrum Stage 2 Pressure Injury
-Wound care
Nutrition
- DHT feeds in addition to diet- Appetite poor.
Ex Smoker
DVT Prophylaxis: SCDs only given bleeding.
Diet: Tube feeds
Code status - Full Code
Progress on Transferring Patient to a Tertiary Care Facility
On 04/12/25, I called patient's Beata and patient's daughter Yolanda, and I answered all of their questions and concerns to satisfaction. I contacted Dr. Muhammad (patient's account information clerk) per their request.
On 04/12/25, I spoke with hospitalist Dr. Gross at [facility], and he was thinking that since patient's kidney function is stable (creatinine stable, without any dialysis for more than 1 week), patient does not need to be transferred
right now. He recommended maybe a CT Abd/Pelvis to see whether the bleeding could be coming from his transplanted kidney. He also said that the hydronephrosis based on [facility] records is chronic. I conveyed this message to urologist Dr. Jim
and patient's account information clerk Dr. Muhammad, who still recommended transfer given that patient's transplanted kidney is still with hydronephrosis, and possibly still infected despite antibiotics and Esteves Catheter. I then called [facility] transfer
center and spoke with [facility] Dr. Medina at 1:19 pm, and he mentioned that there is no transplant doctor services at [facility]; therefore I then spoke with transplant physician Dr. Alex Osborn (at [facility]) around 1:51 PM, and he recommended that since patient got his transplant at [facility], he should go there. I conveyed this message to the other doctors involved in patient's care, including but not limited to DrRoya "Alla"Hernán (urologist) and Dr. Muhammad (patient's outpatient account information clerk). Dr. Muhammad spoke with patient's and daughter, and mentioned that potential transfer was not just about a chronically, hydronephrotic transplanted kidney, but a transplant
recipient with acute illness, requiring a higher level of care. Dr. Muhammad then spoke with the transplant account information clerk (Dr. Crescencio Tran) who wondered what can they do there (at [facility]) that we cannot do here -- Dr. Crescencio Tran told Dr. Muhammad
that he will speak to the transfer team, and let Dr. Muhammad know. Family also said that they spoke to Lavon at the transplant team at [facility]; they spoke with Dr. Valencia and he supposedly said he will accept patient if family initiated
transfer.
On 04/13/25, I discussed case together with [facility] Hospitalist Dr. Gross and Urologist Dr. Jim over the phone (all 3 of us in the same phone conversation -- Dr. Gross mentioned that given patient's renal function is currently
stable, transplant doctors will not to anything different at [place] at this time, he recommended further work-up with CT imaging and further evaluation with urology, and no transfer right now to [facility]. Transfer cancelled for now.
On 04/13/25, I spoke over the phone with patient's daughter Yolanda, and I answered all of their questions and concerns to satisfaction, and I let patient's and Yolanda both know that we will continue to monitor patient here at [place].
Bleeding, anemia, venous thromboembolism, is a high risk encounter
Anticipated Discharge: > 48 hours
Subjective/Interval History
-
Date of Service: April 13, 2025
Patient was seen and examined. He denied any new chest pain, shortness of breath or any other new symptoms or complaints.
Objective Data
-
Labs:
Laboratory Results
04/13/25
04:58
WBC 11.1 H
Hgb 7.7 L
Hct 23.6 L
Plt Count 71 L
Sodium 136
Potassium 3.8
Chloride 110 H
Carbon Dioxide 27
BUN 77 H
Creatinine 2.1 H
Glucose 119 H
Calcium 8.5
Vital Signs:
Vital Signs
Temp Pulse Resp BP Pulse Ox
98.2 F 96 7 148/56 99
04/13/25 03:07 04/13/25 06:00 04/13/25 06:00 04/13/25 06:00 04/13/25 06:00
I&O
04/12/25 04/13/25 04/14/25
06:59 06:59 06:59
Intake Total 1690 / 1690 90 / 90
Output Total 5410 / 5410 600 / 600
Balance -3720 / -3720 -510 / -510
[2025-04-13] MEDS: NOVOLOG FLEXPEN-HIGH RESISTANCE SC (08:10)
[2025-04-13] MEDS: NOVOLOG FLEXPEN SC (08:41)
[2025-04-13] MEDS: DELTASONE 2.5 MG PO ×2 (08:41→20:04)
[2025-04-13] MEDS: LOPRESSOR 25 MG PO ×2 (08:41→20:05)
[2025-04-13] MEDS: MIRALAX PO (08:42)
[2025-04-13] MEDS: PROTONIX IV 40 MG IV ×2 (08:43→20:06)
[2025-04-13] MEDS: NSS (PRESERVATIVE FREE) 10 ML IV ×2 (08:43→20:06)
--- NOTE | 2025-04-13 10:02 | W.PN.CD ---
Today's Communication / Plan
-
resume home amlodipine dose
resume DOAC when safe from bleeding perspective
will sign off ,call back with questions
Impression / Plan
-
Impression/Plan: 79M with prior renal transplant in 2019 presenting with septic shock and ELIZABETH now on CRRT with inability to tolerate iHD, now status post TF TAVR 04/06/2025.
#Aortic stenosis, severe:
-s/p TF TAVR with Shu S3 Ultra 26 mm valve (Ric/Santo, 04/06/25).
-Telemetry shows atrial flutter, rate controlled.
-Antithrombotic therapy with apixaban on hold--> Anemia requiring transfusion with hematuria : Continue aspirin in the mean time.
-Post TTE shows stable valve, normal gradients, no effusion.
#ELIZABETH on CKD
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
-no longer requring HD
-Nephrology following
#Hematuria:
-urology/neprhology evaluating, considering transfer to transplant center for intervention given hydro of transplant kidney
#s/p L mid forearm a line placement and now forearm swelling. Now likely contained pseudoaneurysm based on imaging
-vscular surgery eval underway
#Acute respiratory failure:
-improved
-History of ILD, has been stable as outpatient.
-CT scan 03/28/25: Mild pneumomediastinum, with superior extension into the fat at the base of the neck, as well as at the posterior and lateral aspect of the right mid to upper thorax. Diffuse bilateral interstitial and groundglass opacity. This
could be related to fluid associated with interstitial and pulmonary edema related to volume overload or congestive heart failure. Alternatively, findings may be infectious in nature related to atypical or viral pneumonitis. No focal dense
consolidation. On IV steroids. On IV abx.
-Extubated, minimal O2.
-LVEDP 18 mmHg during TAVR (04/06/2025).
#Permanent AFIB:
-Chronic, stable.
-Rate control with metoprolol. HR ~ 100.
-CHADS2-Vasc = 4 (CHF, HTN, Age x2).
-Apixaban transitioned to heparin, then argatroban given concern for HIT. Transition back to DOAC delayed in light of anemia/thrombocytopenia. Resume when ok with primary service.
#Anemia/Thrombocytopenia:
--oncology following
#Hypertension
-Chronic, elevate
-resume home amldopine dose
Subjective/Interval History:
Patient actually feeling better.
DATA:
Echo 03/23/25:
SUMMARY
1. Normal biventricular size and systolic function.
2. Severe aortic stenosis, mean 39 mmHg and estimated SHU 0.46 cmsq. Aortic valve assessment may be affected by anemia (Hgb 7.5).
3. Severe left atrial enlargement.
4. Compared to echocardiogram dated 05/19/2024 the gradient across the aortic valve has increased from 29 mmHg, the aortic valve area was estimated at 0.9 cmsq. The Hgb in 05/2024 was 15.
TAVR, 04/06/2025:
CONCLUSION: Successful placement of a 26 mm Santana Shu 3 Ultra RESILIA transcatheter aortic valve via right transfemoral approach with no acute complications.
Echo, 04/06/2025:
SUMMARY
1. Normal biventricular size and function without wall motion abnormality.
2. LVEF is 60-65% by visual estimation.
3. S/p 26 mm Satnana TAVR valve. Mean gradient 4 mmHg. Trivial aortic regurgitation.
4. Limited interrogation of other valves.
5. Compared to prior from March 23, 2025, now status post TAVR valve.
Echo, 04/07/2025:
SUMMARY
1. Limited echocardiogram. HORACIO performed 04/06/2025.
2. Normal biventricular size and systolic function.
3. Biatrial enlargement.
4. The TAVR is well-seated without aortic regurgitation. Mean gradient 7 mmHg.
5. No significant change since echocardiogram performed immediately after HORACIO.
Physical Exam
Vital Signs/Labs
Vital Signs
Temp Pulse Resp BP Pulse Ox
97.5 F 92 7 183/96 99
04/13/25 08:00 04/13/25 08:41 04/13/25 06:00 04/13/25 08:41 04/13/25 06:00
04/12/25 04/13/25 04/14/25
06:59 06:59 06:59
Actual Weight 166 lb 7.184 oz 166 lb 14.239 oz
04/13/25 04:58
04/13/25 04:58
PT 14.4 Sec (11.4-14.6) 04/10/25 03:02
INR 1.11 04/10/25 03:02
APTT 29.8 Sec (23.4-35.0) 04/12/25 02:50
Magnesium 1.9 mg/dl (1.6-2.3) 04/12/25 02:50
Triglycerides 220 mg/dl (10-149) H 03/27/25 03:27
03/19/25 03/26/25 03/28/25
23:51 03:21 03:28
Lru-D-Wvfcdfanzik Pept > [id number] 13029
04/08/25
16:55
Man-B-Tdsrqnrequx Pept [id number]
Physical Exam
Constitutional: No acute distress
Cardiovascular: Pedal edema is absent, JVD pressure is normal, Systolic murmur absent and Rhythm/rate is irregular
Respiratory: Respiratory effort normal, Lungs clear to auscul., Wheeze Absent and Crackles Absent
Neuro/Psych: AO x 3
Data Reviewed
-
Date of Service: April 13, 2025
Medical Decision Making: Review of Case with other Provider (Dr Hernandez will sign off )
EKG: Other (tele rate controlled fib)
[2025-04-13] MEDS: DESENEX/MITRAZOL/ZEASORB 1 APPLIC TOPICAL ×2 (10:23→20:06)
[2025-04-13] MEDS: LOW STRENGTH ASPIRIN 81 MG PO (10:24)
[2025-04-13] MEDS: CELLCEPT 1000 MG PO ×2 (10:24→20:04)
[2025-04-13] MEDS: SENOKOT-S PO (10:26)
[2025-04-13] MEDS: NORVASC 2.5 MG PO (10:27)
[2025-04-13] MEDS: OCEAN, SALINE MIST NASAL (10:31)
[2025-04-13] MEDS: OCEAN, SALINE MIST 1 SPRAYS NASAL ×3 (10:52→23:19)
--- NOTE | 2025-04-13 11:17 | W.PN.VS ---
Today's Communication / Plan
-
Below plan reviewed with account liaison hospice vascular surgeon Dr. Johann Disla III.
Assessment/Plan
-
Assessment: Patient s/p L mid forearm a line placement and now forearm swelling. 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
Repeat ultrasound with no evidence of active extravasation or pseudoaneurysm, edema at LUE forearm greatly improved in comparison to prior exam.
Recommend continue karl warp for gentle compression at E, along with daily or PRN dressing change for forearm skin tear, wound care nursing consulted
We will sign off, please call with questions or concerns
Subjective Data
-
Date of Service: April 13, 2025
Patient seen and examined at bedside, continues to deny pain at LUE or hand. Denies LUE paraesthesia, pain, and pallor.
Objective Data
-
Vital Signs
Temp Pulse Resp BP Pulse Ox
97.5 F 92 7 165/87 99
04/13/25 08:00 04/13/25 08:41 04/13/25 06:00 04/13/25 10:27 04/13/25 06:00
Intake and Output
04/12/25 04/13/25 04/14/25
06:59 06:59 06:59
Intake Total 1690 / 1690 90 / 90
Output Total 5410 / 5410 600 / 600
Balance -3720 / -3720 -510 / -510
Intake:
Oral fluids 240 / 240
IV fluids (Total) 120 / 120
Heparin 120 / 120
Tube feeding 480 / 480 40 / 40
Feeding tube flush amount 600 / 600 50 / 50
Blood Product Amount Infused ( 250 / 250
mL)
Packed Rbc Leukoreduced Unit 250 / 250
[id number]
Output:
Nighat Zamorano 600 / 600
True Urine Output from CBI 4810 / 4810 600 / 600
Lab Results
04/13/25 04:58
04/13/25 04:58
Calcium 8.5 mg/dl (8.4-10.2) 04/13/25 04:58
Phosphorus 6.0 mg/dl (2.5-4.5) H 04/10/25 03:02
Magnesium 1.9 mg/dl (1.6-2.3) 04/12/25 02:50
Total Bilirubin 0.8 mg/dl (0.2-1.3) 04/11/25 03:29
Direct Bilirubin 0.5 mg/dl (0.0-0.4) H 04/11/25 03:29
AST 40 U/L (17-59) 04/11/25 03:29
ALT 32 U/L (0-50) 04/11/25 03:29
Alkaline Phosphatase 85 U/L (38-126) 04/11/25 03:29
Total Protein 4.2 g/dl (6.3-8.2) L 04/11/25 03:29
Albumin 2.1 g/dl (3.5-5.0) L 04/11/25 03:29
Physical Exam
-
NAD, resting in bed comfortably, lethargic but easily arousable
Entire forearm bruised, very thin friable skin
Forearm soft, edema vastly improved to nearly resolved, +motor/sensation in hand
+2 palapable radial
--- NOTE | 2025-04-13 11:39 | W.PN.NEPH.PH ---
Today's Communication / Plan
-
follow labs
Assessment/Plan
-
This is a 79-year-old gentleman who follows in our office with Dr. Muhammad after donor renal transplant 2019 from [facility]. His transplant course has been complicated by development of nephrotic range proteinuria as well as recent
cellular rejection December of this year. The episodes treated with Solu-Medrol. His creatinine has risen quickly over time in the last several months. He has gone from a creatinine around 2 now up to 4.4. He was noted to have hydronephrosis of
the transplanted kidney recently on ultrasound as well as CT scan. Esteves catheter was placed by urology a few days ago. His appetite has been poor as of late. Recently he also developed fever and malaise and this has brought him to the emergency
room. He was noted to be febrile in the ER. Blood pressure was stable though lower than his home readings of 132. He was 100 systolic in the ER. Creatinine was 4.7 with elevated lactate level and elevated white count. CT of the abdomen and
pelvis were performed with suspicion for pyelonephritis of the transplant. We are asked to assist in management of his renal issues.
Assessment
Sepsis syndrome, possible pyelonephritis
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
donor renal transplant with FSGS, recent T-cell rejection
Obstructive uropathy, Esteves catheter in place
ELIZABETH..
Anemia
Hyponatremia
lactic acidosis
TAVR 04/06/25
LUE arterial oozing
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
Plan
complicated hospital course sepsis, UTI, Status post TAVR 04/06/2025, protracted anemia from bleeding multiple sites
stable renal function and non oliguric
no need of HD however given bleeding risk from IV site, will still keep HD line until safe to remove
last belatacept dose was 04/09 (275mg/weight based), continue pred/MMF
TF through DHT , wts stable and stable resp status
BP increasing trend, amlodipine added back per cards today
prn transfusion , AC on hold , CBI per
Discussions with joanna for transfer, Dr Muhammad spoke to transplant team on 04/11, primary team will call back today to find update
I agree that he best taken care at transplant center with ongoing hematuria
d/w pt in detail
High risk situation
-
-
Date of Service: April 13, 2025
CC / HPI / ROS
-
Chief Complaint:
Sepsis
History of Present Illness:
ELIZABETH/Cr stable 2.1
BP stable
Hgb down to 7.7 again
off heparin gtt for PE, left upper arm DVT
plts still low improving to 71
s/p LUE agram 04/09
Review of Systems:
non oliguric with esteves
tube feeding, also trying to eat
no cp, no sob at rest
Labs
-
Labs:
WBC 11.1 10^3/uL (4.8-10.8) H 04/13/25 04:58
RBC 2.53 10^6/uL (4.70-6.10) L 04/13/25 04:58
Hgb 7.7 g/dL (13.0-18.0) L 04/13/25 04:58
Hct 23.6 % (39.0-52.0) L 04/13/25 04:58
Plt Count 71 10^3/uL (130-400) L 04/13/25 04:58
Sodium 136 mmol/L (135-145) 04/13/25 04:58
Potassium 3.8 mmol/L (3.5-5.1) 04/13/25 04:58
Chloride 110 mmol/L (98-107) H 04/13/25 04:58
Carbon Dioxide 27 mmol/L (22-30) 04/13/25 04:58
BUN 77 mg/dl (9-20) H 04/13/25 04:58
Creatinine 2.1 mg/dL (0.7-1.3) H 04/13/25 04:58
eGFR 31.43 04/13/25 04:58
Glucose 119 mg/dl (70-99) H 04/13/25 04:58
Calcium 8.5 mg/dl (8.4-10.2) 04/13/25 04:58
Phosphorus 6.0 mg/dl (2.5-4.5) H 04/10/25 03:02
Xaa-L-Ovpaprexauq Pept 89233 pg/ml 04/08/25 16:55
Albumin 2.1 g/dl (3.5-5.0) L 04/11/25 03:29
Physical Exam
-
Vital Signs:
Vital Signs
Temp Pulse Resp BP Pulse Ox
97.5 F 92 7 165/87 99
04/13/25 08:00 04/13/25 08:41 04/13/25 06:00 04/13/25 10:27 04/13/25 06:00
Cardiovascular:: Regular rate and rhythm
Respiratory:: Bilateral: Coarse
Lung Excursion:: Normal
Abdomen:: Nontender and Soft
Extremity Edema:: None: Bilateral:
Esteves Catheter: Yes
[2025-04-13 12:05] LABS: Glucose - Point of Care 288 mg/dl (70-99)
[2025-04-13] MEDS: NOVOLOG FLEXPEN 3 UNITS SC ×2 (12:16→16:35)
[2025-04-13] MEDS: NOVOLOG FLEXPEN-HIGH RESISTANCE 7 UNITS SC (12:17)
--- NOTE | 2025-04-13 14:00 | WOUNDNOTE ---
CHELO RN NOTE: Spoke to Millie Diaz who informed me of skin tear and bleeding to L arm. Dressing just applied and karl wrap per Millie, no need to change today. Will follow up in next few days if able. Will update wound care.
--- NOTE | 2025-04-13 14:15 | PTCARENOTE ---
Assumed care of patient at beginning of this shift from previous RN with tube feeding infusing via R nares dobhoff: nepro at 20ml/hr with flush. Nasal packing intact to L nares. No further obvious bleeding noted. LUE karl bandage noted to have dried
bloody drainage. Millie Diaz, vascular BURR SANDER up to see patient and changed dressing. L arm with dark purple/black ecchymosis; skin tear at lower forearm. +3 edema to L hand and +1 to arm. Wound care orders updated. L arm elevated on pillow. US of RUE
completed; see results. Patient was due for aspirin 81mg this morning; confirmed with Dr Hernandez via TT that patient may continue with aspirin, which was given. Order has since been placed on hold. Also confirmed with Dr Leo via TT that
ordered type and cross is for the am. Miralax and senokot held as patient incontinent of loose stools. CBI continues infusing; yellow with no clots noted. See worklist for full assessment and vital signs; see MAR for med administration.
[2025-04-13] MEDS: NOVOLOG FLEXPEN-HIGH RESISTANCE 2 UNITS SC (16:35)
--- NOTE | 2025-04-13 16:38 | CM ---
F/U: Daughter Cely approached NOHELIA Cerda re: transfer to [facility]. CM spoke to Hospitalist who explained the many conversation he had with [facility]. In short, [facility] who originally performed his kidney transplant, is aware what is happening now at [place]
[facility] (), would not accept him now due to they will not do anything different, and wants to perform some test plus procedure than take it from there. Hospitalist excellently explained this to the daughter, Cely. PLAN: SNF when ready vs.
Hospital Transfer.
[2025-04-13 16:44] LABS: Glucose - Point of Care 154 mg/dl (70-99)
[2025-04-13 17:02] LABS: Glucose - Point of Care 141 mg/dl (70-99)
[2025-04-13] MEDS: SENOKOT-S 1 TABLET PO (20:06)
[2025-04-13 22:24] LABS: Glucose - Point of Care 138 mg/dl (70-99)
[2025-04-13] MEDS: MELATONIN 5 MG PO (23:19)
[2025-04-14] VITALS (13 sets, daily range): BP systolic 97–155; BP diastolic 63–89; BMI 22.8
[2025-04-14] MEDS: ROXICODONE 5 MG PO (00:36)
--- NOTE | 2025-04-14 03:55 | PTCARENOTE ---
Assumed care for patient overnight. Pt AAOx3, forgetful at times, RAMONA. R nare dobhoff intact: TF nepro at 20ml/hr with 25ml flush. Nasal packing to the L nare with old blood in L nare. LUE karl wrap intact, skin tear redressed during dayshift, no
further bleeding noted. +1 edema to L arm, +3 edema to L hand. Neurovascular checks done as per order, see worklist. b/l arms elevated on a pillow. Pt incontinent of stool, dark brown soft BM. Buttock wounds open to air due to incontinence of stool,
however Calazime paste applied, Q2T. Pt tolerating frequent turning and repositioning. Pt c/o moderate pain to buttocks, PRN Oxycodone administered, see MAR. Pt taking PO meds crushed in applesauce w/o issues. CBI continued; clear output in tubing
however pink in the bag. Pt denies any pain or discomfort in bladder/abdomen. Assessment and care as charted, see worklist. Call tao within reach.
[2025-04-14] MEDS: ANESTHETIC LOZENGE 1 LOZENGE PO (04:51)
[2025-04-14 05:39] LABS: Blood Urea Nitrogen 71 mg/dl (9-20); Calcium 8.6 mg/dl (8.4-10.2); Carbon Dioxide 26 mmol/L (22-30); Chloride 107 mmol/L (98-107); Estimated Creatinine Clearance 32 ml/min; Glucose 121 mg/dl (70-99); Potassium 4.0 mmol/L (3.5-5.1); Sodium 136 mmol/L (135-145); eGFR 33.32
[2025-04-14 05:45] LABS: Hematocrit 23.8 % (39.0-52.0); Hemoglobin 7.6 g/dL (13.0-18.0); Mean Corp Hgb Conc. 31.9 g/dL (33.0-37.0); Mean Corpuscular Volume 94.8 fL (80.0-94.0); Platelet Count 81 10^3/uL (130-400); Red Cell Dist. Width 17.3 % (11.5-14.5)
--- NOTE | 2025-04-14 07:41 | W.PN.URO.CBU ---
Today's Communication / Plan
-
ct
prepare for OR tomorrow
Assessment / Plan
-
hx of renal transplant with hydro of transplant kidney
urinary retention
UTI- urosepsis
hematuria
very difficult
still with hematuria
in addition- hydro of transplant kidney remains- despite esteves/treatment of urinary retention
MOST CONSULTANTS AT THIS POINT HAVE NOTHING MORE TO ADD AND DESPITE THE GENERAL CONSENSUS THAT PT IS BETTER SERVED AT [facility] AT THIS TIME DUE TO MULTIPLE ISSUES-COAGULOPATHY AND ONGOING BETTER AND HYDRONEPRHOTIC TRANSPLANT- BOTH [facility]
AND [facility] HAVE REFUSED TRANSFER- FAMILY IS AWARE
from urologic perspective- unknown source of bleeding at this point
since it has continued in setting of continued- bvut now somewhat recovering thrombocytopenia- have rec hold of asa in anticipation of cysto in OR tomorrow with gen anesthesia
will obtain CT today to re-assess transplant
on consultation with hematology- transfuse 1 unit of platelets pre-op
npo after midnight- hold TF- rocephin 1gram pre-op
have also discussed risks,benefits,alternatives with daughter
Diagnosis
-
Date of Service: April 14, 2025
-
Patient Urologic Diagnosis:
hx of renal transplant
urinary retention
hydro of renal transplant
UTI
hematuria
Subjective
-
pt generally stable
hgb low but stable
platelets with some recovery- up to 81k
urine light pink on moderate rate cbi
f/u ucx negative
Objective
-
Vital Signs
Temp Pulse Resp BP Pulse Ox
97.3 F 88 17 155/79 94
04/14/25 03:12 04/14/25 06:00 04/14/25 06:00 04/14/25 06:00 04/14/25 04:00
Intake and Output
04/13/25 04/14/25 04/15/25
06:59 06:59 06:59
Intake Total 90 / 90 540 / 540
Output Total 600 / 600 2350 / 2350
Balance -510 / -510 -2350 / -2350 540 / 540
Intake:
Tube feeding 40 / 40 240 / 240
Feeding tube flush amount 50 / 50 300 / 300
Output:
True Urine Output from CBI 600 / 600 2350 / 2350
Laboratory Results
04/14/25 04:58
04/14/25 04:58
Physical Exam
-
General - ill appearing, no acute distress
Abdomen - soft, non-tender
Genitalia - [address]
[2025-04-14] MEDS: MIRALAX 17 GRAMS PO (08:21)
[2025-04-14] MEDS: CELLCEPT 1000 MG PO ×2 (08:21→21:00)
[2025-04-14] MEDS: NORVASC 5 MG PO (08:21)
[2025-04-14] MEDS: LOPRESSOR 25 MG PO ×2 (08:22→19:33)
[2025-04-14] MEDS: PROTONIX IV 40 MG IV ×2 (08:22→21:00)
[2025-04-14] MEDS: VALIUM 2 MG PO (08:22)
[2025-04-14] MEDS: DELTASONE 2.5 MG PO ×2 (08:22→21:00)
[2025-04-14] MEDS: NSS (PRESERVATIVE FREE) 10 ML IV ×2 (08:22→21:00)
[2025-04-14] MEDS: SENOKOT-S 1 TABLET PO (08:22)
[2025-04-14] MEDS: DESENEX/MITRAZOL/ZEASORB 1 APPLIC TOPICAL ×2 (08:23→21:00)
[2025-04-14] MEDS: OCEAN, SALINE MIST 50 SPRAYS NASAL ×2 (08:23→16:30)
--- NOTE | 2025-04-14 08:25 | W.PN.HOSP.TC ---
Today's Communication/Plan
-
Dr. Jim to take patient to OR on 04/15/25 for cystoscopy and fulguration -- NPO after midnight- hold Tube Feeding - rocephin 1 gram pre-op
Assessment / Plan
Assessment / Plan
Physical Exam
General: No Apparent Distress
HEENT: Normocephalic and Other (dobhoff; dried blood left nare )
Respiratory: Clear to Auscultation
Cardiac: Regular Rhythm, S1/S2 and Murmur
GI: Soft and Nontender. Positive bowel sounds.
Genito-urinary: Other (esteves, hematuria while on CBI)
Musculoskeletal: No Clubbing and Other (left arm wrapped with compression)
Skin: Warm
Neuro: AO x 3
Psych: Calm
Assessment/Plan
79-year-old with history of end-stage renal disease status post kidney transplant 2019 on antirejection medications, hypertension, hyperlipidemia, atrial fibrillation on Eliquis, urinary retention status post catheter placement several days prior to
admission presenting to the emergency department with fever and chills as well as weakness, admitted for sepsis secondary to transplant pyelonephritis, acute renal failure of transplanted kidney with development of acute hypoxic respiratory failure,
inability to tolerate HD secondary to severe and now s/p TAVR 04/06.

Left Upper Extremity Hematoma
Likely contained pseudoaneurysm -- status post left mid forearm A-line placement, then forearm swelling, then found to have likely contained pseudoaneurysm based on imaging
-swelling started after removaL PIV; arterial line in setting of thrombocytopenia/AC
-arterial US/angiogram 04/09/25 with active extravasation in left forearm with associated hematoma
-appreciate Vascular surgery input - based on comorbidities/skin tissue integrity trying to avoid surgical intervention - continue karl bandage wrap and compression
-Repeat arterial duplex 04/12/25 -- with no evidence of active extravasation or pseudoaneurysm
-Continue karl wrap for gentle compression at the LUE -- edema has improved
-Continue daily or PRN dressing change for forearm skin tear, wound care nursing consulted
Acute blood loss anemia secondary to multiple sources: LUE hematoma, melena (see below), hematuria (see below), epistaxis
(see below - prior hospitalization with other bleeding episodes, patient has received many PRBC this admission)
-So far, patient has received 9 units of red blood cells this hospitalization
-Follow CBC
Thrombocytopenia
-HIT panel testing was negative
-appreciate Heme eval
-s/p 1 unit PLT (on 04/09/25) in setting of bleeding
-Platelet counts now stable in the 60s
-Appreciate hematology: last note from hematology on 04/13/25 suggested holding anticoagulation for now given hematuria, thrombocytopenia and absence of lower extremity clot.
-Per Dr. Jim (urologist), transfuse 1 unit of platelets pre-op on 04/14/25
Severe aortic stenosis with cardiogenic shock status post TAVR on 04/06
- RHC 03/30 indicated aortic stenosis as source of low cardiac output/cardiogenic shock.
- s/p cardiac cath 04/02/25 - non-obstructive CAD
- Decision made for more urgent TAVR in hopes of tolerating HD (see below)
- s/p TAVR CT work-up with incidental finding of PE (see below)
- Has been getting Aspirin 81 mg daily -- last dose 04/13/25 morning -- hold further Aspirin for now given that patient going to OR with urology on 04/15/25
- Appreciate CTS, Right Of Way Cutter, Cardiology
- Dr. Yuri Larios (via [place] [employer] communication on 04/12/25) mentioned that holding anticoagulation right now (see below) is reasonable; in the custodial, patient should be on ASA for the TAVR if not on
anticoagulation (to prevent leaflet thrombosis). If and when patient goes on any anticoagulation, then no Aspirin needed. Per Dr. Larios, if not on anticoagulation and having active bleeding, would hold Aspirin. Once no longer
having active bleeding, would resume Aspirin, but only if not on anticoagulation. If on anticoagulation, should not get Aspirin.
History of renal transplant in 2019 - donor renal transplant 2019 from [facility]
Acute on chronic renal failure requiring hemodialysis
-Recent Treatment for rejection in December 2024
-Losartan on hold
-Cellcept resumed 03/30/25 nephrology -- continue
-On steroids - Prednisone 2.5 mg BID -- continue
-Belatacept ordered per renal for 04/09/25 -- last belatacept dose was 04/09 (275mg/weight based)
-Status post temporary hemodialysis catheter
-Required hemodialysis on admission, received multiple session, but due to poor tolerance of HD, 03/29/25, transitioned to CRRT. Line clotted, off CRRT since.
-HD attempt on 04/01/25 resulted in tachycardia and tachypnea during HD, Severe aortic stenosis likely limiting factor for hemodynamic instability during HD
-*patient is now s/p TAVR. Renal function is stable/shown daily improvement and patient is non-oliguric therefore HD not needed to be reattempted. Post contrast again on 04/09 - BUN trended down, creatinine stable. Appreciate Renal eval.
-I communicated (via [place] [employer], on 04/12/25) with patient's entry level installation technician Dr. Muhammad, who agreed that patient would be best served at his transplant center, [facility]. I communicated (via [place] [employer], on 04/12/25) with urologist
Hernán: urologically he has concerns about a hydronephrotic/ infected transplant- that is aside from the hematuria issue -- on 04/13/25, I discussed case together with Dr. Gross and urologist Dr. Jim over the phone -- Dr. Gross mentioned that
given patient's renal function is currently stable, Transplant doctors will not to anything different at [facility] at this time, he recommended further work-up with CT imaging and further evaluation with urology, and no transfer right now to [facility]
-Per urologist note 04/14/25: MOST CONSULTANTS AT THIS POINT HAVE NOTHING MORE TO ADD AND DESPITE THE GENERAL CONSENSUS THAT PT IS BETTER SERVED AT TERTIARY CARE CENTER AT THIS TIME DUE TO MULTIPLE ISSUES-COAGULOPATHY AND ONGOING BETTER AND
HYDRONEPHROTIC TRANSPLANT- BOTH [facility] AND [facility] HAVE REFUSED TRANSFER- FAMILY IS AWARE -- I agree with Dr. Jim's assessment
Hydronephrosis of transplanted kidney
- Obstructive uropathy of transplant kidney, Esteves placed 03/15/25
- Maintain Esteves catheter
- Patient considering TURP
- Despite addressing obstruction with Esteves Catheter and addressing urinary retention, patient's hydronephrosis has not improved
- Repeat CT imaging today
Acute hypoxic respiratory failure requiring intubation 03/21-03/25
-Remains on room air
-Likely multifactorial secondary to pulmonary edema versus pneumonia versus interstitial lung disease
-s/p empiric high dose steroids for possible ILD, now on home prednisone
-with improvement in CXR post fluid removal with HD, may have been related to fluid; s/p RHC with PCWP 8 (post fluid removal)
-s/p antibiotic course for possible pneumonia
-Pulmonary has signed off as 04/12/25
Septic shock associated with acute kidney injury, lactic acidosis secondary to Klebsiella bacteremia likely secondary to urinary tract infection
Transplant kidney pyelonephritis with Klebsiella and E. faecalis
Immunosuppressed
-s/p 14 days IV antibiotics (completed 04/02/25)
-s/p pressor administration, now off
Pneumomediastinum
Pulmonary embolus within the posterior left lower lobe segmental pulmonary artery on CT Chest on 04/04/25
Short-segment left axillary vein thrombus
-Seen on CT Chest done in preparation for aortic valve surgery
-Pulmonary embolization from temporary dialysis line (which had previously clotted)??
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
-I communicated (via [place] Text, on 04/12/25) with tube depatcher Dr. Manjarrez who recommended against IVC filter as the patient has no lower extremity clot, and she also said not to maintain anticoagulation solely for short-segment axillary
vein clot; she recommended hold anticoagulation; she said patient seems to be at the point of medical futility.
-Additionally, last note from hematology on 04/13/25 suggested holding anticoagulation for now given hematuria, thrombocytopenia and absence of lower extremity clot.
-Cardiology (Dr. Yuri Larios) mentioned via [place] [employer] communication on 04/12/25 that if those blood clots and patient's atrial fibrillation are the only indications for anticoagulation, would favor a lower intensity strategy with warfarin as
suggested by Dr. Tilley (cold press loader who saw patient on 04/12/25) -- after cold press loader mentioned their recommendations on [place] Text communication, Dr. Manjarrez recommended against anticoagulation given no lower extremity clot
-Later in the [place] [employer] communication, Dr. Larios mentioned that holding anticoagulation is reasonable at this time
-Has been getting Aspirin 81 mg daily -- last dose 04/13/25 morning -- hold further Aspirin for now given that patient going to OR with urology on 04/15/25
Hyperglycemia
-Glucose values remain well-controlled
-Continue sliding scale coverage and NovoLog with Accu-Cheks
Bleeding around HD catheter, 04/04/25
-Area cleaned, had bleeding noted from one of the stitches; stitch removed, after injecting lidocaine new stitch placed at a different location. Hemostasis achieved. Appreciate biodiesel product development manager
Acute blood loss anemia with baseline chronic macrocytic anemia
Melena on 04/11-04/12
Epistaxis
Hematuria developed on 04/11/25-04/12/25
-Status post total of 9 units of PRBCs so far
-GI saw patient on 04/12/25, no endoscopy given current patient's current condition, GI has signed off
-Continue IV PPI BID
-I communicated (via [place] Text, on 04/12/25) with tube depatcher Dr. Manjarrez who recommended against IVC filter as he patient no lower extremity clot, and she also said not to maintain
anticoagulation solely for short-segment axillary vein clot; hold anticoagulation; she said patient seems to be at the point of medical futility.
-Dr. Jim to take patient to OR on 04/15/25 for cystoscopy and fulguration -- npo after midnight- hold TF- rocephin 1gram pre-op
-Continue CBI
Epistaxis
-Previously evaluated by ENT, status post left NC packing. now removed on 03/26/25. Appears deviated septum per ENT.
-Left nostril with Clot
-s/p topical bacitracin course
-gentle nasal saline sprays in b/l nasal cavities 1-2 sprays each nostril 3-4 times daily per ENT
-recall ENT if rebleeding occurs
Left Eye Subconjunctival Hemorrhage
-Developed overnight 04/03/25-04/04/25
-Continue to monitor
Toxic metabolic encephalopathy likely secondary to shock versus ICU delirium versus hypoxemia versus uremia
-Resolved
Atrial fibrillation with rapid ventricular response
Permanent Atrial Fibrillation
Atrial Flutter
- No anticoagulation at this time given bleeding/anemia/thrombocytopenia
- Aspirin is on hold as above for OR as above
- Continue Metoprolol.
Hypertension
-Home Amlodipine 5 mg daily resumed on 04/13/25
-Holding Losartan for now given tenuous kidney situation with urinary bleeding
Multifactorial Anemia
-Iron studies noted from 03/26/25.
Sacrum Stage 2 Pressure Injury
-Wound care
Nutrition
-DHT feeds in addition to diet- Appetite poor.
Ex-Smoker
DVT Prophylaxis: SCDs only given bleeding.
Diet: Tube feeds -- Per discussion with Speech and Dietitian on 04/14/25: trial IDDSI 6 (soft/bite sized) to see if this requires less energy and increases PO intake slightly increase tube feeds to be Nepro 1.8 continuous. Rate 25ml/hr. flush 25ml.
Code status - Full Code
Progress on Transferring Patient to a Tertiary Care Facility
On 04/12/25, I called patient's Beata and patient's daughter Yolanda, and I answered all of their questions and concerns to satisfaction. I contacted Dr. Muhammad (patient's entry level installation technician) per their request.
On 04/12/25, I spoke with hospitalist Dr. Gross at [facility], and he was thinking that since patient's kidney function is stable (creatinine stable, without any dialysis for more than 1 week), patient does not need to be transferred
right now. He recommended maybe a CT Abd/Pelvis to see whether the bleeding could be coming from his transplanted kidney. He also said that the hydronephrosis based on [facility] records is chronic. I conveyed this message to urologist Dr. Jim
and patient's entry level installation technician Dr. Muhammad, who still recommended transfer given that patient's transplanted kidney is still with hydronephrosis, and possibly still infected despite antibiotics and Esteves Catheter. I then called [facility] transfer
center and spoke with [facility] Dr. Medina at 1:19 pm, and he mentioned that there is no transplant doctor services at [facility]; therefore I then spoke with transplant physician Dr. Alex Osborn (at [facility] around 1:51 PM, and he recommended that since patient got his transplant at [facility], he should go there. I conveyed this message to the other doctors involved in patient's care, including but not limited to "Alla"Hernán (urologist) and Dr. Muhammad (patient's outpatient entry level installation technician). Dr. Muhammad spoke with patient's and daughter, and mentioned that potential transfer was not just about a chronically, hydronephrotic transplanted kidney, but a transplant
recipient with acute illness, requiring a higher level of care. Dr. Muhammad then spoke with the transplant entry level installation technician (Dr. Crescencio Tran) who wondered what can they do there (at [facility]) that we cannot do here -- Dr. Crescencio Tran told Dr. Muhammad
that he will speak to the transfer team, and let Dr. Muhammad know. Family also said that they spoke to Lavon at the transplant team at [facility]; they spoke with Dr. Valencia and he supposedly said he will accept patient if family initiated
transfer.
On 04/13/25, I discussed case together with [facility] Hospitalist Dr. Gross and Urologist Dr. Jim over the phone (all 3 of us in the same phone conversation -- Dr. Gross mentioned that given patient's renal function is currently
stable, transplant doctors will not to anything different at [facility] at this time, he recommended further work-up with CT imaging and further evaluation with urology, and no transfer right now to [facility]. Transfer cancelled for now.
On 04/13/25, I spoke over the phone with patient's daughter Yolanda, and I answered all of their questions and concerns to satisfaction, and I let patient's and Yolanda both know that we will continue to monitor patient here at [facility].
Bleeding, anemia, venous thromboembolism, is a high risk encounter
Anticipated Discharge: > 48 hours
Subjective/Interval History
-
Date of Service: April 14, 2025
Patient was seen and examined. He denied any new symptoms or complaints.
Objective Data
-
Labs:
Laboratory Results
04/14/25
04:58
WBC 10.6
Hgb 7.6 L
Hct 23.8 L
Plt Count 81 L
Sodium 136
Potassium 4.0
Chloride 107
Carbon Dioxide 26
BUN 71 H
Creatinine 2.0 H
Glucose 121 H
Calcium 8.6
Vital Signs:
Vital Signs
Temp Pulse Resp BP Pulse Ox
97.3 F 96 17 154/75 94
04/14/25 03:12 04/14/25 08:22 04/14/25 06:00 04/14/25 08:22 04/14/25 04:00
I&O
04/13/25 04/14/25 04/15/25
06:59 06:59 06:59
Intake Total 90 / 90 540 / 540
Output Total 600 / 600 2350 / 2350
Balance -510 / -510 -2350 / -2350 540 / 540
[2025-04-14] MEDS: NOVOLOG FLEXPEN 3 UNITS SC ×3 (08:36→16:29)
[2025-04-14] MEDS: NOVOLOG FLEXPEN-HIGH RESISTANCE 1 UNITS SC ×2 (08:37→11:33)
[2025-04-14 08:46] LABS: Glucose - Point of Care 124 mg/dl (70-99)
--- NOTE | 2025-04-14 09:10 | PTOTSP ---
Speech Language Pathology
Pt seen for dysphagia tx. Sitting in bed upon arrival, DHT in place. He denied any chewing or swallowing issues typically, but stated that food on tray last evening was very dry, and he almost choked, so he wasn't able to eat it. He denied this
happening on any other meal trays previously, and feels it was the way the food was prepared. Reviewed importance of single sips. Pt able to demonstrate this with liquids. Breakfast meal tray on way.
Discussed option of IDDSI [address] to see if this will increase intake secondary to increased energy conservation with softer solids. Pt in agreement to trial.
Recommend:
(1) Downgrade to IDDSI Level 6 (soft/bite-sized) and thin liquids to see if this improves intake
(2) Aspiration precautions: slow rate, sit upright, single sips only, frequent sips of liquids post solids, intermittent throat clear/reswallow
(3) Meds whole in puree
(4) MATERIAL EXPEDITOR to continue to follow
--- NOTE | 2025-04-14 09:29 | W.PN.NEPH.PH ---
Today's Communication / Plan
-
follow BMP
Assessment/Plan
-
This is a 79-year-old gentleman who follows in our office with Dr. Muhammad after donor renal transplant 2019 from [facility]. His transplant course has been complicated by development of nephrotic range proteinuria as well as recent
cellular rejection December of this year. The episodes treated with Solu-Medrol. His creatinine has risen quickly over time in the last several months. He has gone from a creatinine around 2 now up to 4.4. He was noted to have hydronephrosis of
the transplanted kidney recently on ultrasound as well as CT scan. Esteves catheter was placed by urology a few days ago. His appetite has been poor as of late. Recently he also developed fever and malaise and this has brought him to the emergency
room. He was noted to be febrile in the ER. Blood pressure was stable though lower than his home readings of 132. He was 100 systolic in the ER. Creatinine was 4.7 with elevated lactate level and elevated white count. CT of the abdomen and
pelvis were performed with suspicion for pyelonephritis of the transplant. We are asked to assist in management of his renal issues.
Assessment
Sepsis syndrome, possible pyelonephritis
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
donor renal transplant with FSGS, recent T-cell rejection
Obstructive uropathy, Esteves catheter in place
ELIZABETH..
Anemia
Hyponatremia
lactic acidosis
TAVR 04/06/25
LUE arterial oozing
BRICK WHEELER-He had been making outpatient arrangements for eventual ESRD and transplant evaluation at [place]/previously on peritoneal dialysis prior to transfer
Plan
off heparin
follow BMP
no need of HD however given bleeding risk from IV site, will still keep HD line until plts closer to 100
last belatacept dose was 04/09 (275mg/weight based), continue pred/MMF
TF through DHT, wts stable and stable resp status
CBI per
currently no plans for transfer to [facility] per recent discussions
High risk situation
-
-
Date of Service: April 14, 2025
CC / HPI / ROS
-
Chief Complaint:
Sepsis
History of Present Illness:
ELIZABETH/Cr stable 2.0
BP stable
Hgb down to 7.6
off heparin gtt for PE, left upper arm DVT due to hematuria
hematuria cleared on CBI
plts still low improving to 81
s/p LUE agram 04/09
Review of Systems:
non oliguric with esteves
tube feeding, also trying to eat
no cp, no sob at rest
Labs
-
Labs:
WBC 10.6 10^3/uL (4.8-10.8) 04/14/25 04:58
RBC 2.51 10^6/uL (4.70-6.10) L 04/14/25 04:58
Hgb 7.6 g/dL (13.0-18.0) L 04/14/25 04:58
Hct 23.8 % (39.0-52.0) L 04/14/25 04:58
Plt Count 81 10^3/uL (130-400) L 04/14/25 04:58
Sodium 136 mmol/L (135-145) 04/14/25 04:58
Potassium 4.0 mmol/L (3.5-5.1) 04/14/25 04:58
Chloride 107 mmol/L (98-107) 04/14/25 04:58
Carbon Dioxide 26 mmol/L (22-30) 04/14/25 04:58
BUN 71 mg/dl (9-20) H 04/14/25 04:58
Creatinine 2.0 mg/dL (0.7-1.3) H 04/14/25 04:58
eGFR 33.32 04/14/25 04:58
Glucose 121 mg/dl (70-99) H 04/14/25 04:58
Calcium 8.6 mg/dl (8.4-10.2) 04/14/25 04:58
Phosphorus 6.0 mg/dl (2.5-4.5) H 04/10/25 03:02
Opm-Y-Fkwljnguwvc Pept 20858 pg/ml 04/08/25 16:55
Albumin 2.1 g/dl (3.5-5.0) L 04/11/25 03:29
Physical Exam
-
Vital Signs:
Vital Signs
Temp Pulse Resp BP Pulse Ox
97.3 F 96 17 154/75 94
04/14/25 03:12 04/14/25 08:22 04/14/25 06:00 04/14/25 08:22 04/14/25 04:00
Cardiovascular:: Regular rate and rhythm
Respiratory:: Bilateral: Coarse
Lung Excursion:: Normal
Abdomen:: Nontender and Soft
Bowel Sounds:: Normal
Extremity Edema:: None: Bilateral:
--- NOTE | 2025-04-14 11:08 | PTCARENOTE ---
pt aaox3. states no pain. ruano. room air breath sounds diminished. ngt to tube feeding. [address] draining pink tinged. pt went to ctscan. will need to repeat due to barium in gi tract.
[2025-04-14 11:24] LABS: Glucose - Point of Care 126 mg/dl (70-99)
[2025-04-14 16:19] LABS: Glucose - Point of Care 206 mg/dl (70-99)
[2025-04-14] MEDS: NOVOLOG FLEXPEN-HIGH RESISTANCE 4 UNITS SC (16:29)
[2025-04-14] MEDS: TYLENOL/FEVERALL 650 MG RECTAL (18:41)
--- NOTE | 2025-04-14 18:49 | PTCARENOTE ---
pt has 101.6 temp. tremor. hr 140 rr 36. tylenol pr given and md notified.
[2025-04-14] MEDS: SENOKOT-S PO (19:47)
--- NOTE | 2025-04-14 20:17 | W.PN.UPDATE ---
Update Note
Progress Note Update
~ 19:20 TT'd to see patient for new onset fevers. Per RN, patient with tremors, febrile, rectal temp 101.6, received rectal Tylenol @ 18:45. TT sent to Dr. Hernandez and Dr. Jim by [facility] RN to update new onset fevers.
Patient tachycardic, HR 140's, RR 40, BP 137/67. CBI running, tinged pink, no clots.
Dr. Hernandez requested labs be ordered: CBC (WBC 13.6 elevated, w/slight left shift), BMP (similar to previous), Lactic Acid (2.0), UA reflex to cx (on hold per Urology), Blood cultures (sent and pending), sputum cx (need specimen)
Also ordered CXR (Stable diffuse interstitial prominence likely reflects underlying chronic interstitial lung disease. Cannot rule out superimposed component of pneumonitis and/or pulmonary edema), flu (A&B negative), COVID (Negative)
Dr. Jim deferred UA at this time d/t need to turn off CBI and increased risk of clots. Requested Stat KUB portable be ordered for 6 am on 04/15/25.
Spoke with Pharmacist regarding recommendations for antibiotics. Recommended Cefepime 1 g IV Q8H and Vancomycin w/pharmacy dosing. Confirmed w/Dr. Hernandez. Medications ordered as per recommendations.
ID reconsulted.
~ 1 am Blood sugar 162, SS coverage held as patient NPO
Pt w/rigors, rectal temp 100. Pt also c/o nausea. Zofran given. Ordered Tylenol 1 g IV x 1 dose.
~ 3:30 am Pt c/o nausea which subsided on its own. Pt also c/o being anxious, given Valium PRN.
--- NOTE | 2025-04-14 20:32 | PHA.VAN.IN ---
Assessment
- Assessment
Renal Function: SCR Appears Elevated from baseline (~1 - 1.4)
Maximum Temperature: 101.7 F axillary 04/14 @ 1942, 100.5 F rectal 04/14 @ 1947
Concomitant Antimicrobials: cefepime
Plan
- Plan
Initial / Loading Dose: vanc 1500mg pending administration
Maintenance Regimen: dosing by level
Monitoring: random level 04/15 06
Pharmacokinetics Vancomycin I
- -
Patient Age: 79
Patient Sex: Male
Vancomycin Day #: 1
Indication: Other
Requesting Provider: Amelia Castaneda
Pertinent Antimicrobial Allergies:
no pertinent antimicrobial allergies
Height / Weight:
Height 6 ft
Actual Weight 76.2 kg
Pertinent Past Medical History: hx renal transplant 2018
- Vital Signs / Lab Results
Temp Pulse Resp BP Pulse Ox
100.5 F H 130 28 106/76 95
04/14/25 19:47 04/14/25 19:33 04/14/25 19:32 04/14/25 19:33 04/14/25 19:32
Lab Results - Hematology
04/12/25 04/13/25 04/14/25
02:50 04:58 04:58
WBC 12.4 H 11.1 H 10.6
04/14/25
20:01
WBC 14.2 H
Lab Results - Chemistry
04/12/25 04/13/25 04/14/25
02:50 04:58 04:58
BUN 83 H 77 H 71 H
Creatinine 2.1 H 2.1 H 2.0 H
Estimated Creat Clear 31 30 32
Microbiology Results
04/12/25 08:38 Urine Culture - Final
Urine NO GROWTH
[2025-04-14 20:34] LABS: Blood Urea Nitrogen 72 mg/dl (9-20); COVID-19 Antigen Negative (Negative); Calcium 8.6 mg/dl (8.4-10.2); Carbon Dioxide 27 mmol/L (22-30); Chloride 104 mmol/L (98-107); Estimated Creatinine Clearance 31 ml/min; Glucose 76 mg/dl (70-99); Potassium 4.5 mmol/L (3.5-5.1); Sodium 134 mmol/L (135-145); eGFR 31.43
[2025-04-14 21:02] LABS: Hematocrit 27.1 % (39.0-52.0); Hemoglobin 8.8 g/dL (13.0-18.0); Mean Corp Hgb Conc. 32.5 g/dL (33.0-37.0); Mean Corpuscular Volume 93.4 fL (80.0-94.0); Nucleated Red Blood Cells % 0 % (-); Platelet Count 109 10^3/uL (130-400); Red Cell Dist. Width 17.3 % (11.5-14.5)
[2025-04-14] MEDS: VANCOCIN 530 MG IV (21:21)
--- NOTE | 2025-04-14 21:26 | PTCARENOTE ---
At change of shift patient tachycardic in the 140's, febrile 100.5 rectal temp, rigors. SANITATION TECHNICIAN Roberta at the bedside. New orders for lab work including repeat blood cultures x2, flu, and covid. STAT CXR. Per Dr. Jim do not stop current CBI to
collect UA. Unable to get UA at this time. Dr. Hernandez notified via TT, orders for abdominal x-ray at 0600. A-fib on the monitor, scheduled metoprolol administered, see JUL. Pt to be NPO and stop TF at midnight for OR in AM. L arm redressed and
compression KRISSY applied. Scant amount of bleeding from L forearm skin tear. Neurovascular checks per order, see worklist. Family at the bedside.
[2025-04-14 22:20] LABS: Glucose - Point of Care 137 mg/dl (70-99)
[2025-04-14] MEDS: OCEAN, SALINE MIST 1 SPRAYS NASAL (23:06)
[2025-04-14] MEDS: STERILE WATER FOR INJECTION 10 ML IV (23:06)
[2025-04-14] MEDS: MELATONIN 5 MG PO (23:07)
[2025-04-14] MEDS: MAXIPIME 1000 MG IV (23:07)
[2025-04-15] VITALS (22 sets, daily range): BP systolic 104–172; BP diastolic 59–113; BMI 22.5
[2025-04-15] MEDS: NSS 1000 IV ×2 (00:52→14:26)
[2025-04-15 00:59] LABS: Glucose - Point of Care 162 mg/dl (70-99)
[2025-04-15] MEDS: ZOFRAN 4 MG IV (01:13)
[2025-04-15] MEDS: NOVOLOG FLEXPEN-HIGH RESISTANCE SC ×3 (01:41→13:07)
[2025-04-15] MEDS: OFIRMEV 100 IV (01:44)
--- NOTE | 2025-04-15 02:00 | PTCARENOTE ---
Patient having chills with tremors. Rectal temp 100.0. HR 120. CHARLOTTE Granados notified, Ofirmev administered see JUL. NSS started at 80ml/hr. TF held since midnight for OR.
[2025-04-15] MEDS: VALIUM 2 MG PO ×2 (03:47→21:11)
[2025-04-15] MEDS: MAXIPIME 1000 MG IV ×3 (05:47→21:11)
[2025-04-15] MEDS: STERILE WATER FOR INJECTION 10 ML IV ×3 (05:47→21:12)
[2025-04-15 06:12] LABS: Glucose - Point of Care 130 mg/dl (70-99)
[2025-04-15 06:50] LABS: Hematocrit 22.6 % (39.0-52.0); Hemoglobin 7.3 g/dL (13.0-18.0); Mean Corp Hgb Conc. 32.3 g/dL (33.0-37.0); Mean Corpuscular Volume 96.2 fL (80.0-94.0); Platelet Count 86 10^3/uL (130-400); Red Cell Dist. Width 17.4 % (11.5-14.5)
[2025-04-15 06:54] LABS: Blood Urea Nitrogen 71 mg/dl (9-20); Calcium 8.1 mg/dl (8.4-10.2); Carbon Dioxide 25 mmol/L (22-30); Chloride 107 mmol/L (98-107); Estimated Creatinine Clearance 30 ml/min; Glucose 105 mg/dl (70-99); Potassium 4.5 mmol/L (3.5-5.1); Sodium 135 mmol/L (135-145); eGFR 31.43
--- NOTE | 2025-04-15 07:15 | W.PN.HOSP.TC ---
Today's Communication/Plan
-
Went to OR today, pus and bleeding near where transplant is, bleeding from transplant
Spoke with urology, monitor here for now
See plan
Assessment / Plan
Assessment / Plan
Physical Exam
General: No Apparent Distress
HEENT: Normocephalic and Other (dobhoff; dried blood left nare )
Respiratory: Clear to Auscultation
Cardiac: Regular Rhythm, S1/S2 and Murmur
GI: Soft and Nontender. Positive bowel sounds.
Genito-urinary: Other (esteves, hematuria while on CBI)
Musculoskeletal: No Clubbing and Other (left arm wrapped with compression)
Skin: Warm
Neuro: AO x 3
Psych: Calm
Assessment/Plan
79-year-old with history of end-stage renal disease status post kidney transplant 2019 on antirejection medications, hypertension, hyperlipidemia, atrial fibrillation on Eliquis, urinary retention status post catheter placement several days prior to
admission presenting to the emergency department with fever and chills as well as weakness, admitted for sepsis secondary to transplant pyelonephritis, acute renal failure of transplanted kidney with development of acute hypoxic respiratory failure,
inability to tolerate HD secondary to severe and now s/p TAVR 04/06.

Left Upper Extremity Hematoma
Likely contained pseudoaneurysm -- status post left mid forearm A-line placement, then forearm swelling, then found to have likely contained pseudoaneurysm based on imaging
-swelling started after removaL PIV; arterial line in setting of thrombocytopenia/AC
-arterial US/angiogram 04/09/25 with active extravasation in left forearm with associated hematoma
-appreciate Vascular surgery input - based on comorbidities/skin tissue integrity trying to avoid surgical intervention - continue karl bandage wrap and compression
-Repeat arterial duplex 04/12/25 -- with no evidence of active extravasation or pseudoaneurysm
-Continue karl wrap for gentle compression at the LUE -- edema has improved
-Continue daily or PRN dressing change for forearm skin tear, wound care nursing consulted
Acute blood loss anemia secondary to multiple sources: LUE hematoma, melena (see below), hematuria (see below), epistaxis
(see below - prior hospitalization with other bleeding episodes, patient has received many PRBC this admission)
-So far, patient has received 10 units of red blood cells this hospitalization (10th one was given in OR on 04/15/25)
-Follow CBC
Thrombocytopenia
-HIT panel testing was negative
-appreciate Heme eval
-s/p 1 unit PLT (on 04/09/25) in setting of bleeding, and on 04/15/25, received per urologist 2 more units of platelets perioperatively
-Appreciate hematology: last note from hematology on 04/13/25 suggested holding anticoagulation for now given hematuria, thrombocytopenia and absence of lower extremity clot.
-Per Dr. Jim (urologist), transfuse 1 unit of platelets pre-op on 04/14/25
Severe aortic stenosis with cardiogenic shock status post TAVR on 04/06
Small left groin hematoma related to previous transcatheter aortic valve replacement on CT Abdomen Pelvis 04/15/25
- RHC 03/30 indicated aortic stenosis as source of low cardiac output/cardiogenic shock.
- s/p cardiac cath 04/02/25 - non-obstructive CAD
- Decision made for more urgent TAVR in hopes of tolerating HD (see below)
- s/p TAVR CT work-up with incidental finding of PE (see below)
- Has been getting Aspirin 81 mg daily -- last dose 04/13/25 morning -- hold further Aspirin for now given that patient going to OR with urology on 04/15/25
- Appreciate CTS, Adjusto Writer Operator, Cardiology
- Dr. Yuri Larios (via [employer] communication on 04/12/25) mentioned that holding anticoagulation right now (see below) is reasonable; in the intermediate, patient should be on ASA for the TAVR if not on
anticoagulation (to prevent leaflet thrombosis). If and when patient goes on any anticoagulation, then no Aspirin needed. Per Dr. Larios, if not on anticoagulation and having active bleeding, would hold Aspirin. Once no longer
having active bleeding, would resume Aspirin, but only if not on anticoagulation. If on anticoagulation, should not get Aspirin.
History of renal transplant in 2019 - donor renal transplant 2019 from [facility]
Acute on chronic renal failure requiring hemodialysis
-Recent Treatment for rejection in December 2024
-Losartan on hold
-Cellcept resumed 03/30/25 nephrology -- continue
-On steroids - Prednisone 2.5 mg BID -- continue
-Belatacept ordered per renal for 04/09/25 -- last belatacept dose was 04/09 (275mg/weight based)
-Status post temporary hemodialysis catheter
-Required hemodialysis on admission, received multiple session, but due to poor tolerance of HD, 03/29/25, transitioned to CRRT. Line clotted, off CRRT since.
-HD attempt on 04/01/25 resulted in tachycardia and tachypnea during HD, Severe aortic stenosis likely limiting factor for hemodynamic instability during HD
-*patient is now s/p TAVR. Renal function is stable/shown daily improvement and patient is non-oliguric therefore HD not needed to be reattempted. Post contrast again on 04/09 - BUN trended down, creatinine stable. Appreciate Renal eval.
-I communicated (via [employer], on 04/12/25) with patient's supervisor glycerin Dr. Muhammad, who agreed that patient would be best served at his transplant center, [facility]. I communicated (via [employer], on 04/12/25) with urologist
Hernán: urologically he has concerns about a hydronephrotic/ infected transplant- that is aside from the hematuria issue -- on 04/13/25, I discussed case together with Dr. Gross and urologist Dr. Jim over the phone -- Dr. Gross mentioned that
given patient's renal function is currently stable, Transplant doctors will not to anything different at [place] at this time, he recommended further work-up with CT imaging and further evaluation with urology, and no transfer right now to [place]
[facility]
-Per urologist note 04/14/25: MOST CONSULTANTS AT THIS POINT HAVE NOTHING MORE TO ADD AND DESPITE THE GENERAL CONSENSUS THAT PT IS BETTER SERVED AT [facility] AT THIS TIME DUE TO MULTIPLE ISSUES-COAGULOPATHY AND ONGOING BETTER AND
HYDRONEPHROTIC TRANSPLANT- BOTH [facility] AND [facility] HAVE REFUSED TRANSFER- FAMILY IS AWARE -- I agree with Dr. Jim's assessment
Hydronephrosis of transplanted kidney
- Obstructive uropathy of transplant kidney, Esteves placed 03/15/25
- Maintain Esteves catheter
- Patient considering TURP
- Despite addressing obstruction with Esteves Catheter and addressing urinary retention, patient's hydronephrosis has not improved
- Repeat CT Abdomen Pelvis without intravenous or oral contrast performed on 04/15/25: the CT showed unchanged severe hydronephrosis of transplant kidney, gas in the transplant ureter/collecting system, possible IV contrast from prior procedure
versus hemorrhage
-Patient went to OR as below, on 04/15/25
Acute hypoxic respiratory failure requiring intubation 03/21-03/25
Bilateral small pleural effusions and as seen on previous imaging, pulmonary fibrosis
-Remains on room air
-Likely multifactorial secondary to pulmonary edema versus pneumonia versus interstitial lung disease
-s/p empiric high dose steroids for possible ILD, now on home prednisone
-with improvement in CXR post fluid removal with HD, may have been related to fluid; s/p RHC with PCWP 8 (post fluid removal)
-s/p antibiotic course for possible pneumonia
-Pulmonary has signed off as 04/12/25
Septic shock associated with acute kidney injury, lactic acidosis secondary to Klebsiella bacteremia likely secondary to urinary tract infection
Transplant kidney pyelonephritis with Klebsiella and E. faecalis
Immunosuppressed
-s/p 14 days IV antibiotics (completed 04/02/25)
-s/p pressor administration, now off
Pneumomediastinum
-Decreased pneumomediastinum on repeat CT Abdomen Pelvis 04/15/25
Pulmonary embolus within the posterior left lower lobe segmental pulmonary artery on CT Chest on 04/04/25
Short-segment left axillary vein thrombus
-Seen on CT Chest done in preparation for aortic valve surgery
-Pulmonary embolization from temporary dialysis line (which had previously clotted)??
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
-I communicated (via [employer], on 04/12/25) with asphalt spreader operator Dr. Manjarrez who recommended against IVC filter as the patient has no lower extremity clot, and she also said not to maintain anticoagulation solely for short-segment axillary
vein clot; she recommended hold anticoagulation; she said patient seems to be at the point of medical futility.
-Additionally, last note from hematology on 04/13/25 suggested holding anticoagulation for now given hematuria, thrombocytopenia and absence of lower extremity clot.
-Cardiology (Dr. Yuri Larios) mentioned via [employer] communication on 04/12/25 that if those blood clots and patient's atrial fibrillation are the only indications for anticoagulation, would favor a lower intensity strategy with warfarin as
suggested by Dr. Tilely (appointment clerk who saw patient on 04/12/25) -- after appointment clerk mentioned their recommendations on [employer] communication, Dr. Manjarrez recommended against anticoagulation given no lower extremity clot
-Later in the [employer] communication, Dr. Larios mentioned that holding anticoagulation is reasonable at this time
-Has been getting Aspirin 81 mg daily -- last dose 04/13/25 morning -- hold further Aspirin for now given that patient going to OR with urology on 04/15/25
Hyperglycemia
-Glucose values remain well-controlled
-Continue sliding scale coverage and NovoLog with Accu-Cheks
Bleeding around HD catheter, 04/04/25
-Area cleaned, had bleeding noted from one of the stitches; stitch removed, after injecting lidocaine new stitch placed at a different location. Hemostasis achieved. Appreciate active directory specialist
Acute blood loss anemia with baseline chronic macrocytic anemia
Melena on 04/11-04/12
Epistaxis
Hematuria developed on 04/11/25-04/12/25
-Status post total of 10 units of PRBCs so far (10th unit was given perioperatively on 04/15/25)
-GI saw patient on 04/12/25, no endoscopy given current patient's current condition, GI has signed off
-Continue IV PPI BID
-I communicated (via [employer], on 04/12/25) with asphalt spreader operator Dr. Manjarrez who recommended against IVC filter as he patient no lower extremity clot, and she also said not to maintain
anticoagulation solely for short-segment axillary vein clot; hold anticoagulation; she said patient seems to be at the point of medical futility.
-On 04/15/25, Dr. Jim took patient to the OR and found that patient is bleeding from the transplant, and pus was also present, he was able to place a urinary tract stent on 04/15/25 and he fulgurated small areas in the prostate
Constipation/Large Volume Stool in Abdominal X-Ray 04/15/25
-Already on Miralax
-Monitor bowel movements
Epistaxis
-Previously evaluated by ENT, status post left NC packing. now removed on 03/26/25. Appears deviated septum per ENT.
-Left nostril with Clot
-s/p topical bacitracin course
-gentle nasal saline sprays in b/l nasal cavities 1-2 sprays each nostril 3-4 times daily per ENT
-recall ENT if rebleeding occurs
Left Eye Subconjunctival Hemorrhage
-Developed overnight 04/03/25-04/04/25
-Continue to monitor
Toxic metabolic encephalopathy likely secondary to shock versus ICU delirium versus hypoxemia versus uremia
-Resolved
Atrial fibrillation with rapid ventricular response
Permanent Atrial Fibrillation
Atrial Flutter
- No anticoagulation at this time given bleeding/anemia/thrombocytopenia
- Aspirin is on hold as above for OR as above
- Continue Metoprolol.
Dilated gallbladder on CT Abdomen Pelvis 04/15/25
Hypertension
-Home Amlodipine 5 mg daily resumed on 04/13/25
-Holding Losartan for now given tenuous kidney situation with urinary bleeding
Multifactorial Anemia
-Iron studies noted from 03/26/25.
Sacrum Stage 2 Pressure Injury
-Wound care
Nutrition
-DHT feeds in addition to diet- Appetite poor.
Ex-Smoker
DVT Prophylaxis: SCDs only given bleeding.
Diet: Tube feeds -- Per discussion with Speech and Dietitian on 04/14/25: trial IDDSI 6 (soft/bite sized) to see if this requires less energy and increases PO intake slightly increase tube feeds to be Nepro 1.8 continuous. Rate 25ml/hr. flush 25ml.
Code status - Full Code
Progress on Transferring Patient to a Tertiary Care Facility
On 04/12/25, I called patient's Beata and patient's daughter Yolanda, and I answered all of their questions and concerns to satisfaction. I contacted Dr. Muhammad (patient's supervisor glycerin) per their request.
On 04/12/25, I spoke with hospitalist Dr. Gross at [facility], and he was thinking that since patient's kidney function is stable (creatinine stable, without any dialysis for more than 1 week), patient does not need to be transferred
right now. He recommended maybe a CT Abd/Pelvis to see whether the bleeding could be coming from his transplanted kidney. He also said that the hydronephrosis based on [facility] records is chronic. I conveyed this message to urologist Dr. Jim
and patient's supervisor glycerin Dr. Muhammad, who still recommended transfer given that patient's transplanted kidney is still with hydronephrosis, and possibly still infected despite antibiotics and Esteves Catheter. I then called [facility] transfer
center and spoke with [facility] Dr. Medina at 1:19 pm, and he mentioned that there is no transplant doctor services at [facility]; therefore I then spoke with transplant physician Dr. Alex Osborn (at [facility]) around 1:51 PM, and he recommended that since patient got his transplant at [facility], he should go there. I conveyed this message to the other doctors involved in patient's care, including but not limited to "Alla"Hernán (urologist) and Dr. Muhammad (patient's outpatient supervisor glycerin). Dr. Muhammad spoke with patient's and daughter, and mentioned that potential transfer was not just about a chronically, hydronephrotic transplanted kidney, but a transplant
recipient with acute illness, requiring a higher level of care. Dr. Muhammad then spoke with the transplant supervisor glycerin (Dr. Crescencio Tran) who wondered what can they do there (at [facility]) that we cannot do here -- Dr. Crescencio Tran told Dr. Muhammad
that he will speak to the transfer team, and let Dr. Muhammad know. Family also said that they spoke to Lavon at the transplant team at [facility]; they spoke with Dr. Valencia and he supposedly said he will accept patient if family initiated
transfer.
On 04/13/25, I discussed case together with [facility] Hospitalist Dr. Gross and Urologist Dr. Jim over the phone (all 3 of us in the same phone conversation -- Dr. Gross mentioned that given patient's renal function is currently
stable, transplant doctors will not to anything different at [place] at this time, he recommended further work-up with CT imaging and further evaluation with urology, and no transfer right now to [facility]. Transfer cancelled for now.
On 04/13/25, I spoke over the phone with patient's daughter Yolanda, and I answered all of their questions and concerns to satisfaction, and I let patient's and Yolanda both know that we will continue to monitor patient here at [place].
Bleeding, anemia, venous thromboembolism, post OR status after bleeding stent was found, is a high risk encounter
Anticipated Discharge: > 48 hours
Subjective/Interval History
-
Date of Service: April 15, 2025
Patient was seen and examined. Last night he developed fever and tachycardia, after antibiotics started last night he is now feeling better.
Objective Data
-
Labs:
Laboratory Results
04/14/25 04/14/25 04/15/25
20:01 20:51 06:00
WBC Cancelled 13.6 H 11.7 H
Hgb Cancelled 8.8 L 7.3 L
Hct Cancelled 27.1 L 22.6 L
Plt Count Cancelled 109 L D 86 L D
Sodium 134 L 135
Potassium 4.5 4.5
Chloride 104 107
Carbon Dioxide 27 25
BUN 72 H 71 H
Creatinine 2.1 H 2.1 H
Glucose 76 105 H
Calcium 8.6 8.1 L
Vital Signs:
Vital Signs
Temp Pulse Resp BP Pulse Ox
98.2 F 91 23 120/79 94
04/15/25 03:13 04/15/25 06:00 04/15/25 06:00 04/15/25 06:00 04/15/25 06:00
I&O
04/14/25 04/15/25 04/16/25
06:59 06:59 06:59
Intake Total 1500 / 1500
Output Total 2350 / 2350 3550 / 3550
Balance -2350 / -2350 -2049 / -2049
[2025-04-15] MEDS: NOVOLOG FLEXPEN SC ×2 (08:10→13:06)
[2025-04-15] MEDS: MIRALAX PO (08:14)
--- NOTE | 2025-04-15 08:22 | W.PN.URO.CBU ---
Today's Communication / Plan
-
ct
OR
Assessment / Plan
-
hx of renal transplant with hydro of transplant kidney
urinary retention
UTI- urosepsis
hematuria
very difficult
still with hematuria
in addition- hydro of transplant kidney remains- despite esteves/treatment of urinary retention
MOST CONSULTANTS AT THIS POINT HAVE NOTHING MORE TO ADD AND DESPITE THE GENERAL CONSENSUS THAT PT IS BETTER SERVED AT [facility]ARE [facility] AT THIS TIME DUE TO MULTIPLE ISSUES-COAGULOPATHY AND ONGOING BETTER AND HYDRONEPRHOTIC TRANSPLANT- BOTH [facility]
AND [facility] HAVE REFUSED TRANSFER- FAMILY IS AWARE
from urologic perspective- unknown source of bleeding at this point
now with fever- several potential etiologies- but UTI and or pyelo in obstructed transplant a possibility
spoke with radiology- they feel attempt at ct reasonable
spoke with med team and family- unless unstable plan for cysto/fulguration and possible stent today- high risks reviewed
give 1 unit plateltes cash on delivery clerk per heme
Diagnosis
-
Date of Service: April 15, 2025
-
Patient Urologic Diagnosis:
hx of renal transplant
urinary retention
hydro of renal transplant
UTI
hematuria
Subjective
-
pt had fever and tach last pm- this able back to baseline
urine and blood cx's pending- cxr no sig change
on antibx
KUB- still retained contrast in left colon
still requiring cbi to keep urine clear
Objective
-
Vital Signs
Temp Pulse Resp BP Pulse Ox
98.3 F 91 23 120/79 94
04/15/25 07:38 04/15/25 06:00 04/15/25 06:00 04/15/25 06:00 04/15/25 06:00
Intake and Output
12/08/0404/15/25 04/16/25
06:59 06:59 06:59
Intake Total 1500 / 1500
Output Total 2350 / 2350 3550 / 3550
Balance -2349 / -2349 -2049 /
Intake:
IV fluids (Total) 480 / 480
Tube feeding 480 / 480
Feeding tube flush amount 540 / 540
Output:
True Urine Output from CBI 2350 / 2350 3550 / 3550
Laboratory Results
04/15/25 06:00
04/15/25 06:00
Physical Exam
-
General - ill appearing- no change, no acute distress
Abdomen - soft, non-tender, transplant is not tender
Genitalia - normal- esteves in place
--- NOTE | 2025-04-15 08:52 | W.PN.ID1 ---
Date of Service
Date of Service: April 15, 2025
Today's Communication
See below.
Assessment / Plan
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
# Obstructive uropathy of transplant kidney, esteves placed since 03/15
# s/p Recent shock transplant kidney pyelonephritis with Klebsiella and E. faecalis, Klebsiella bacteremia s/p 14d abx (against both org) completed 04/02/25
# s/p cardiogenic shock, respiratory failure intubated 03/21; extubated 03/25/25
# chronic interstitial lung disease
# Severe aortic stenosis s/p TAVR 04/06/25
# ELIZABETH on CKD requiring renal replacement therapy (03/20 - 04/01). ELIZABETH improving
# PE (04/04/25), LUE DVT (04/08/25), RUE DVT (04/12/25)
# LUE midforearm hematoma/bleeding from IV catheter attempt (04/09/25). No pseudoaneurysm .
# Gross hematuria , onset 04/11.
04/12/25 started CBI
Urology plan for OR cysto/fulguration
# New fever 04/14
# Leukocytosis
# GNR bacteremia x 3 sets
- source of GNR bacteremia: transplant kidney pyelonephritis/obstructive uropathy vs. less likely line vs. LUE catheter site phlebitis
- Prelim blood cx; Klebsiella pneumoniae group similar to previous Ucx
- Of note, unable to send UA/Ucx due to pt currently on CBI.
- Continue cefepime.
- From ID standpoint, can go to OR for source control, relieve severe hydronephrosis, severe fulguration.
- Can continue Vancomycin through OR. (hx E. faecalis in urine).
- DC RIJ line, cx tip
- Repeat blood cultures in am.
- Trend temps/wbc.
Chief Complaint
-: Fever
Subjective / Review of Systems
Reconsult for fever. I reviewed medical chart. Overnight pt with rigors, febrile to 101.7. He is pacheco-cx'd and started on Vancomycin and cefepime. Unable to collect urine sample due to CBI for gross hematuria.
Pt reports no further chills. No new cough or SOB. No transplant kidney pain. No N/V/abd pain/diarrhea. LUE swollen, no pain.
Vital Signs / Physical Exam
Vital Signs
Vital Signs
Temp Pulse Resp BP Pulse Ox
98.3 F 91 23 120/79 94
04/15/25 07:38 04/15/25 06:00 04/15/25 06:00 04/15/25 06:00 04/15/25 06:00
Selected Entries
04/14/25
19:42
Temp 101.7 F H
Physical Exam
Constitutional: Chronically Ill
Head: Other (No sinus tenderness)
Eyes: No Conjunctival Hemorrhage and Sclera Anicteric
Cardiovascular: Irregular Rate and S1/S2
Pulmonary: Clear (anteriorly)
Gastrointestinal: Soft, Non Tender, Non Distended and Normal Bowel Sounds
Genito-Urinary: Esteves and Clear Urine (CBI)
Extremities: Edema (LUE 3+ with ecchymosis entire arm) and Erythema (distal forearm. )
Neurological: AO x 3
Lines: Other (RIJ temp cath no erythema)
Objective Data
Lab Data
Lab Results
04/15/25 06:00
04/15/25 06:00
ESR 87 mm/hour (0-20) H 04/11/25 03:29
PT 14.4 Sec (11.4-14.6) 04/10/25 03:02
INR 1.11 04/10/25 03:02
APTT 29.8 Sec (23.4-35.0) 04/12/25 02:50
Estimated Creat Clear 30 ml/min 04/15/25 06:00
Lactic Acid 2.0 mmol/L (0.7-2.0) 04/14/25 20:51
Total Bilirubin 0.8 mg/dl (0.2-1.3) 04/11/25 03:29
AST 40 U/L (17-59) 04/11/25 03:29
ALT 32 U/L (0-50) 04/11/25 03:29
Alkaline Phosphatase 85 U/L (38-126) 04/11/25 03:29
C-Reactive Protein Cancelled 04/08/25 16:00
Most recent labs reviewed.
Micro Results:
04/14/25 20:01 Blood Culture - Preliminary
Blood/Venous Positive culture in progress
Gram Stain - Final
04/14/25 20:01 Blood Culture - Preliminary
Blood/Venous Positive culture in progress
Gram Stain - Preliminary
04/14/25 20:50 Blood Culture - Preliminary
Blood/Venous Positive culture in progress
Gram Stain - Final
04/14/25 20:01 Influenza Types A & B (NOLVIA) - Final
Nasal Swab Negative for Influenza A & B, NAAT
Negative results must be combined with clinical observations
and patient history.
Nucleic Acid Amplification test (NAAT)performed on the
[employer] platform.
04/12/25 08:38 Urine Culture - Final
Urine NO GROWTH
03/20/25 05:07 Blood Culture - Final
Blood/Venous No Growth - Final Report
03/20/25 05:34 Blood Culture - Final
Blood/Venous No Growth - Final Report
03/18/25 18:13 Urine Culture - Final
Urine Klebsiella pneumoniae
Enterococcus faecalis
03/18/25 17:02 Blood Culture - Final
Blood/Venous Klebsiella pneumoniae
Gram Stain - Final
03/18/25 17:01 Blood Culture - Final
Blood/Venous Klebsiella pneumoniae
Gram Stain - Final
03/18/25 23:17 MRSA Screen - Final
Nose No Methicillin Resistant Staphylococcus aureus isolated.
03/18/25 17:03 Influenza Types A & B (NOLVIA) - Final
Nasal Swab Negative for Influenza A & B, NAAT
Negative results must be combined with clinical observations
and patient history.
Nucleic Acid Amplification test (NAAT)performed on the
[employer] platform.
04/15/25 CT a/p:
1. Severe hydronephrosis of transplant kidney, unchanged.
2. Very small volume of gas within the transplant renal collecting system, decreased as compared with the previous exam. As above, there is gas in the transplant ureter including along the anastomosis with the urinary bladder, therefore both
infection and gas related to Esteves catheter remain considerations.
3. Fluid fluid level within the renal transplant collecting system. This could be related to excretion of contrast from previous procedure. Hemorrhage is also possible.
4. Bilateral small pleural effusions. Pulmonary fibrosis as seen previously. Decreased pneumomediastinum.
5. Small left groin hematoma related to previous transcatheter aortic valve replacement.
6. Dilated gallbladder. No abnormal wall thickening or pericholecystic fluid identified.
04/14/25 CXR: Stable diffuse interstitial prominence likely reflects underlying chronic interstitial lung disease
04/12/25 LUE arterial study: Patent left radial artery with no evidence of pseudoaneurysm. Previously visualized area of abnormality in the mid radial artery is not seen on today's examination
04/09/25 LUE Angio: Small foci of extravasated contrast material seen within the soft tissues at the level of the mid forearm adjacent to the radial artery. Consistent with mild active hemorrhage. Generalized edema. A focal soft tissue collection is
difficult to identify with certainty.
03/31/25 CXR: Slightly improved pulmonary interstitial markings suggesting resolving interstitial edema. Pneumomediastinum without significant change.
03/28/[address]: Mild pneumomediastinum, with superior extension into the fat at the base of the neck, as well as at the posterior and lateral aspect of the right mid to upper thorax. Diffuse bilateral interstitial and groundglass opacity. This
could be related to fluid associated with interstitial and pulmonary edema related to volume overload or congestive heart failure. Alternatively, findings may be infectious in nature related to atypical or viral pneumonitis. No focal dense
consolidation.
03/20/25 CXR: Grossly stable severe diffuse bilateral interstitial and airspace disease which may reflect combination of pulmonary edema and pneumonia. Cannot rule out component of underlying chronic interstitial lung disease.
03/19/25 CXR: Progressive parenchymal disease process, as described. Differential includes progressive congestive heart failure with pulmonary edema versus diffuse bilateral pneumonia, right greater than left.
03/18/25 CT a/p: Severe acute edema and inflammation around the right lower quadrant renal transplant which is new from 12/17/2024. Severe hydronephrosis of the right intrarenal collecting system and right renal pelvis which has increased. ACUTE
PYELONEPHRITIS of the RIGHT LOWER QUADRANT RENAL TRANSPLANT is considered most likely. Acute infarction of the renal transplant is a less likely diagnostic possibility. Severe diffuse urinary bladder wall thickening with surrounding perivesical
inflammation which appears new from 12/17/2024 suggesting SEVERE ACUTE CYSTITIS. Esteves catheter in the urinary bladder. Mildly enlarged prostate gland.
Care Review
Plan reviewed with: Physician (Drs. Jim, Mary)
[2025-04-15] MEDS: DELTASONE 2.5 MG PO ×2 (09:17→19:52)
[2025-04-15] MEDS: PROTONIX IV 40 MG IV ×2 (09:18→19:52)
[2025-04-15] MEDS: CELLCEPT 1000 MG PO ×2 (09:18→21:11)
[2025-04-15] MEDS: NSS (PRESERVATIVE FREE) 10 ML IV ×2 (09:19→19:53)
[2025-04-15] MEDS: DESENEX/MITRAZOL/ZEASORB 1 APPLIC TOPICAL ×2 (09:20→19:52)
[2025-04-15] MEDS: OCEAN, SALINE MIST 1 SPRAYS NASAL (09:21)
--- NOTE | 2025-04-15 09:24 | W.PN.ONC2 ---
Today's Communication / Plan
-
platelets prior to OR today
Impression
Impression
Thrombocytopenia, multifactorial, persistent - stable 86,000 today s/p 1U SDP in preparation for OR with urology today
ESRD s/p failed transplant 2018, on MMF, prednisone
severe b/l hydronephrosis
Atrial fibrillation, AC on hold 06/14 ABLA
Urosepsis complicated by Klebsiella bacteremia, 04/14 Tmax 101.7F with Bcx +for Klebsiella
Severe complicated by cardiogenic shock s/p TAVR 04/06, last ASA 04/13
New small PE on 04/04 CT chest, LUE DVT 04/08, RUE DVT 04/13
Acute blood loss anemia, hematuria, LUE hematoma, melena, epistaxis, & Left groin hematoma - s/p 9U PRBC since 03/19, last 04/11 -Hgb 7.3g/dL today
Constipation
chronic interstitial lung disease
Plan
Plan
persistent thrombocytopenia. HIT negative 04/09/2025. Suspect related to infection, positive blood cultures with new fevers noted 04/14.
OR cysto with urology today
Subjective/Objective
Subjective
2 small BM overnight
Febrile 101.7F yesterday
Vital Signs:
Vital Signs
Temp Pulse Resp BP Pulse Ox
98.3 F 91 23 120/79 94
04/15/25 07:38 04/15/25 06:00 04/15/25 06:00 04/15/25 06:00 04/15/25 06:00
Lab Results:
Laboratory Data
WBC 11.7 10^3/uL (4.8-10.8) H 04/15/25 06:00
Hgb 7.3 g/dL (13.0-18.0) L 04/15/25 06:00
Plt Count 86 10^3/uL (130-400) L D 04/15/25 06:00
PT 14.4 Sec (11.4-14.6) 04/10/25 03:02
INR 1.11 04/10/25 03:02
APTT 29.8 Sec (23.4-35.0) 04/12/25 02:50
eGFR 31.43 04/15/25 06:00
Physical Exam
Left arm bruise from anticub through fingers
HEENT: Other (L nare dried blood)
Pulmonary: Other (unlabored)
GI: Soft
Extremities: Pulses Present; No Edema
[2025-04-15 10:30] LABS: Urine Character Slightly Cloudy (Clear)
--- NOTE | 2025-04-15 10:48 | W.SUR.PREOP ---
Pre-Operative Surgical Note
-
I have examined this patient prior to the performance of the scheduled procedure.
The patient's condition is unchanged from the time of the current History and
Physical and the patient is able to undergo the scheduled procedure.
have reviewed with med team and family and anesthesia
pt has remained stable this am- but blood cx's are now + for gram neg rods- suspected urinary source and possible from hydronephrotic transplant kidney
hematuria continues
very high risk- but plan to proceed to OR for cysto/try to determine site of bleeding and fulgurate/try to place stent in transplant to relieve any obstruction/closed infection
--- NOTE | 2025-04-15 11:12 | PHA.VAN.FU ---
Vancomycin Assessment / Plan
- Assessment
Renal Function: Stable
WBC's are: Trending Down
Concomitant Antimicrobials: cefepime
- Assessment - Therapeutic Drug Monitoring
Random Level: 16.7 - drawn ~8.5H after 1500mg loading dose
- Dosing Plan
Dosing by Level: Re-dose today (Vanc 1000mg post-op)
- Monitoring Plan
Random Level: 04/16 600
- Follow Up
Pharmacy will continue to follow.
Vancomycin Follow UP
- -
Patient Age: 79
Patient Sex: Male
Vancomycin Day #: 2
Indication: Other
Requesting Provider: Amelia Castaneda / Dr. Shea
Pertinent Antimicrobial Allergies:
no pertinent antimicrobial allergies
Height / Weight:
Height 6 ft
Actual Weight 75.1 kg
Pertinent Past Medical History: hx renal transplant 2019
- Vital Signs / Lab Results
Temp Pulse Resp BP Pulse Ox
97.9 F 98 23 144/80 97
04/15/25 09:45 04/15/25 09:00 04/15/25 09:00 04/15/25 08:00 04/15/25 09:00
Lab Results - Hematology
04/13/25 04/14/25 04/14/25
04:58 04:58 20:01
WBC 11.1 H 10.6 Cancelled
04/14/25 04/15/25
20:51 06:00
WBC 13.6 H 11.7 H
Lab Results - Chemistry
04/13/25 04/14/25 04/14/25
04:58 04:58 20:01
BUN 77 H 71 H 72 H
Creatinine 2.1 H 2.0 H 2.1 H
Estimated Creat Clear 30 32 31
04/15/25
06:00
BUN 71 H
Creatinine 2.1 H
Estimated Creat Clear 30
04/14/25
20:51
Lactic Acid 2.0
Lab Results - Urine
04/15/25
10:17
Urine Nitrite (Reflex) Negative
Leukocyte Esterase Rfl 3+ A
Microbiology Results
04/14/25 20:01 Blood Culture - Preliminary
Blood/Venous Klebsiella pneumoniae group
Gram Stain - Final
04/14/25 20:01 Blood Culture - Preliminary
Blood/Venous Positive culture in progress
Gram Stain - Preliminary
04/14/25 20:50 Blood Culture - Preliminary
Blood/Venous Positive culture in progress
Gram Stain - Final
04/14/25 20:01 Influenza Types A & B (NOLVIA) - Final
Nasal Swab Negative for Influenza A & B, NAAT
Negative results must be combined with clinical observations
and patient history.
Nucleic Acid Amplification test (NAAT)performed on the
[email or web address] platform.
04/12/25 08:38 Urine Culture - Final
Urine NO GROWTH
Therapeutic Drug Monitoring
Random Vancomycin 16.7 ug/ml 04/15/25 06:00
[2025-04-15 11:25] LABS: Urine Red Blood Cell >100 /HPF (0-2); Urine White Cell 16-20 /HPF (0-5)
[2025-04-15 12:59] LABS: Glucose - Point of Care 123 mg/dl (70-99)
--- NOTE | 2025-04-15 13:01 | W.IMMPOSTOP ---
Surgical Immed Post Op Note
-
Primary Surgeon:
ariana
Assisting Surgeon:
ruenes
Pre-op Diagnosis:
hematuria/bacteremia
Post-op Diagnosis:
hematuria and bacteremia
Procedure Performed:
cysto/stent placement/prostate fulguaration
Anesthesia Type:
gen
Specimen / Cultures:
none
Estimated Blood Loss:
10cc
Complications:
none
Operative Findings:
pt bleeding from transplant
pus also expressed
able to place stent
small areas in prostate fulgurated
no bladder tumor- + trabeculations and tics
received 1 unit of prbcs and 2 units of platlets
[2025-04-15] MEDS: SENOKOT-S PO ×2 (13:06→19:53)
[2025-04-15] MEDS: SUBLIMAZE 50 MCG IV ×2 (13:22→13:40)
--- NOTE | 2025-04-15 13:30 | W.PN.NEPH.PH ---
Today's Communication / Plan
-
follow BMP
Assessment/Plan
-
This is a 79-year-old gentleman who follows in our office with Dr. Muhammad after donor renal transplant 2019 from [facility]. His transplant course has been complicated by development of nephrotic range proteinuria as well as recent
cellular rejection December of this year. The episodes treated with Solu-Medrol. His creatinine has risen quickly over time in the last several months. He has gone from a creatinine around 2 now up to 4.4. He was noted to have hydronephrosis of
the transplanted kidney recently on ultrasound as well as CT scan. Esteves catheter was placed by urology a few days ago. His appetite has been poor as of late. Recently he also developed fever and malaise and this has brought him to the emergency
room. He was noted to be febrile in the ER. Blood pressure was stable though lower than his home readings of 132. He was 100 systolic in the ER. Creatinine was 4.7 with elevated lactate level and elevated white count. CT of the abdomen and
pelvis were performed with suspicion for pyelonephritis of the transplant. We are asked to assist in management of his renal issues.
Assessment
Sepsis syndrome, possible pyelonephritis
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
donor renal transplant with FSGS, recent T-cell rejection
Obstructive uropathy, Esteves catheter in place
ELIZABETH..
Anemia
Hyponatremia
lactic acidosis
TAVR 04/06/25
LUE arterial oozing
[employer] CH[employer]-He had been making outpatient arrangements for eventual ESRD and transplant evaluation at [facility]/previously on peritoneal dialysis prior to transfer
Plan
off heparin
follow BMP
no need of HD however given bleeding risk from IV site, will still keep HD line until plts closer to 100
last belatacept dose was 04/09 (275mg/weight based), continue pred/MMF
TF through DHT, wts stable and stable resp status
CBI per
for OR to evaluate and stent tx kidney
-
-
Date of Service: April 15, 2025
CC / HPI / ROS
-
Chief Complaint:
Sepsis
History of Present Illness:
ELIZABETH/Cr stable 2.1
BP stable
Hgb down to 7.3
off heparin gtt for PE, left upper arm DVT due to hematuria
hematuria cleared on CBI
plts still low improving to 86
s/p LUE agram 04/09
Review of Systems:
non oliguric with esteves
tube feeding, also trying to eat
no cp, no sob at rest
Labs
-
Labs:
WBC 11.7 10^3/uL (4.8-10.8) H 04/15/25 06:00
RBC 2.35 10^6/uL (4.70-6.10) L 04/15/25 06:00
Hgb 7.3 g/dL (13.0-18.0) L 04/15/25 06:00
Hct 22.6 % (39.0-52.0) L 04/15/25 06:00
Plt Count 86 10^3/uL (130-400) L D 04/15/25 06:00
Sodium 135 mmol/L (135-145) 04/15/25 06:00
Potassium 4.5 mmol/L (3.5-5.1) 04/15/25 06:00
Chloride 107 mmol/L (98-107) 04/15/25 06:00
Carbon Dioxide 25 mmol/L (22-30) 04/15/25 06:00
BUN 71 mg/dl (9-20) H 04/15/25 06:00
Creatinine 2.1 mg/dL (0.7-1.3) H 04/15/25 06:00
eGFR 31.43 04/15/25 06:00
Glucose 105 mg/dl (70-99) H 04/15/25 06:00
Calcium 8.1 mg/dl (8.4-10.2) L 04/15/25 06:00
Phosphorus 6.0 mg/dl (2.5-4.5) H 04/10/25 03:02
Nsv-K-Rfvrfmgbcbe Pept 22165 pg/ml 04/08/25 16:55
Albumin 2.1 g/dl (3.5-5.0) L 04/11/25 03:29
Physical Exam
-
Vital Signs:
Vital Signs
Temp Pulse Resp BP Pulse Ox
97.2 F 89 23 149/80 93
04/15/25 13:00 04/15/25 13:00 04/15/25 09:00 04/15/25 13:00 04/15/25 13:15
Cardiovascular:: Regular rate and rhythm
Respiratory:: Bilateral: Coarse
Lung Excursion:: Normal
Abdomen:: Nontender and Soft
Bowel Sounds:: Normal
Extremity Edema:: None: Bilateral:
[2025-04-15] MEDS: LOPRESSOR 25 MG PO ×2 (14:25→19:53)
[2025-04-15] MEDS: NORVASC 5 MG PO (14:26)
[2025-04-15] MEDS: ROXICODONE 5 MG PO (14:32)
--- NOTE | 2025-04-15 14:32 | CM ---
Addendum entered by Gia Pal 04/15/25 14:55:
Discussed [employer] list to cory, and daughter, Yolanda.
Original Note:
Hematuria, bacteremia. OR today for cysto, stent placement and prostate fulguration, there was bleeding from the kidney transplant with pus.
IV/Cefepime. Discharge POC: SNF. Referrals previously forwarded when patient was on HD. Not on HD at this time. New Medicare. Gov list provided with request for at least 4 preferences.
--- NOTE | 2025-04-15 15:58 | WOUNDNOTE ---
[facility] RN NOTE- Followed up with patient for sacral PI and skin tear to left forearm. Patient with DTI to sacrum pictured on 03/29. Wound now appears to have a shallow open area of 1x1, stage 2 PI and adjacent area of 2x3 which is a stage 3 with light
yellow necrotic appearing wound base. Will recommend Santyl to necrotic areas. No odor or erythema noted. Wounds are dry, with scant serous drainage. Left arm skin tear appears healed but dressing applied, as skin is dry and fragile. The elbow
crease is slightly red and a foam was placed on this area backwards to allow protection, but not stick to the skin. KRISSY was gently applied. Will recommend mineral oil to dry skin on left arm. At next dressing change, if arm appears to be healed,
staff may use mineral oil to left arm. Hand remains slightly swollen. Patient remains on Centrella Max air and turning schedule. Heels with adhesive foam. He is on tube feedings. Patient continues to have several comorbidities including ESRD,
persistent thrombocytopenia, cute blood loss anemia, and recent sepsis. Wounds may worsen and new wounds may develop even with optimal care. RAY Frias given update. Will continue to follow during in-patient stay.
[2025-04-15] MEDS: OCEAN, SALINE MIST NASAL (16:02)
[2025-04-15] MEDS: VANCOCIN 200 IV (16:02)
[2025-04-15 17:04] LABS: Glucose - Point of Care 248 mg/dl (70-99)
[2025-04-15] MEDS: NOVOLOG FLEXPEN 3 UNITS SC (17:23)
[2025-04-15] MEDS: NOVOLOG FLEXPEN-HIGH RESISTANCE 4 UNITS SC (17:23)
[2025-04-15] MEDS: HYDROPHOR 1 APPLIC TOPICAL (17:25)
[2025-04-15] MEDS: SANTYL OINTMENT 1 APPLIC TOPICAL (17:29)
[2025-04-15] MEDS: MELATONIN 5 MG PO (21:11)
[2025-04-15] MEDS: OCEAN, SALINE MIST 50 SPRAYS NASAL (21:12)
[2025-04-15 22:54] LABS: Glucose - Point of Care 328 mg/dl (70-99)
[2025-04-15] MEDS: NOVOLOG FLEXPEN 5 UNITS SC (23:28)
--- NOTE | 2025-04-15 23:58 | PTCARENOTE ---
assumed care of patient. pt is AAOx3, slow speech, flat affect but pleasant. a-fib/flutter on the monitor. 97% RA, right nare dobhoff intact, nepro carb steady tube feeding infusing at 25ml/hr, 25ml/hr flush. inc. of stool. [address] way esteves intact
draining clear/light pink urine. q2t. IV fluids infusing. packing intact to left nare. sacrum dressing intact. left arm dressing intact, wrapped with karl wrap. neurovascular checks WNL. able to take pills whole with water. blood sugar tonight 328,
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 care ongoing.
[2025-04-16] VITALS (15 sets, daily range): BP systolic 93–161; BP diastolic 48–89; BMI 23.0
[2025-04-16] MEDS: NSS 1000 IV (03:42)
[2025-04-16 05:04] LABS: Hematocrit 24.1 % (39.0-52.0); Hemoglobin 7.7 g/dL (13.0-18.0); Mean Corp Hgb Conc. 32.0 g/dL (33.0-37.0); Mean Corpuscular Volume 94.5 fL (80.0-94.0); Platelet Count 102 10^3/uL (130-400); Red Cell Dist. Width 17.2 % (11.5-14.5)
[2025-04-16 05:17] LABS: Fibrinogen 412 MG/DL (199-459); INR 1.17; PT 14.7 Sec (11.4-14.6)
[2025-04-16 05:18] LABS: APTT 28.9 Sec (23.4-35.0)
[2025-04-16] MEDS: MAXIPIME 1000 MG IV ×3 (05:18→22:04)
[2025-04-16] MEDS: STERILE WATER FOR INJECTION 10 ML IV ×3 (05:18→22:04)
--- NOTE | 2025-04-16 05:27 | PTCARENOTE ---
pt with limited venous access. 1st set of blood cultures drawn. phlebotomy unable to obtain 2nd sent of cultures at this time.
[2025-04-16 05:37] LABS: Blood Urea Nitrogen 71 mg/dl (9-20); Calcium 8.3 mg/dl (8.4-10.2); Carbon Dioxide 26 mmol/L (22-30); Chloride 107 mmol/L (98-107); Estimated Creatinine Clearance 34 ml/min; Glucose 112 mg/dl (70-99); Potassium 4.6 mmol/L (3.5-5.1); Sodium 136 mmol/L (135-145); eGFR 35.44
--- NOTE | 2025-04-16 07:51 | W.PN.HOSP.TC ---
Today's Communication/Plan
-
If patient's PO intake of diet is good over the next 24-48 hours, then will stop Tube Feeds
See plan
Assessment / Plan
Assessment / Plan
Physical Exam
General: No Apparent Distress
HEENT: Normocephalic and Other (dobhoff; dried blood left nare )
Respiratory: Clear to Auscultation
Cardiac: Regular Rhythm, S1/S2 and Murmur
GI: Soft and Nontender. Positive bowel sounds.
Genito-urinary: Other (esteves, yellow urine while on CBI)
Musculoskeletal: No Clubbing and Other (left arm wrapped with compression)
Skin: Warm
Neuro: AO x 3
Psych: Calm
Assessment/Plan
79-year-old with history of end-stage renal disease status post kidney transplant 2019 on antirejection medications, hypertension, hyperlipidemia, atrial fibrillation on Eliquis, urinary retention status post catheter placement several days prior to
admission presenting to the emergency department with fever and chills as well as weakness, admitted for sepsis secondary to transplant pyelonephritis, acute renal failure of transplanted kidney with development of acute hypoxic respiratory failure,
inability to tolerate HD secondary to severe and now s/p TAVR 04/06.

Left Upper Extremity Hematoma
Likely contained pseudoaneurysm -- status post left mid forearm A-line placement, then forearm swelling, then found to have likely contained pseudoaneurysm based on imaging
-swelling started after removaL PIV; arterial line in setting of thrombocytopenia/AC
-arterial US/angiogram 04/09/25 with active extravasation in left forearm with associated hematoma
-appreciate Vascular surgery input - based on comorbidities/skin tissue integrity trying to avoid surgical intervention - continue karl bandage wrap and compression
-Repeat arterial duplex 04/12/25 -- with no evidence of active extravasation or pseudoaneurysm
-Continue karl wrap for gentle compression at the LUE -- edema has improved
-Continue daily or PRN dressing change for forearm skin tear, wound care nursing consulted
Acute blood loss anemia secondary to multiple sources: LUE hematoma, melena (see below), hematuria (see below), epistaxis
(see below - prior hospitalization with other bleeding episodes, patient has received many PRBC this admission)
-So far, patient has received 10 units of red blood cells this hospitalization (10th one was given in OR on 04/15/25)
-Follow CBC
Thrombocytopenia
-HIT panel testing was negative
-appreciate Heme eval
-s/p 1 unit PLT (on 04/09/25) in setting of bleeding, and on 04/15/25, received per urologist 2 more units of platelets perioperatively
-Appreciate hematology: last note from hematology on 04/13/25 suggested holding anticoagulation for now given hematuria, thrombocytopenia and absence of lower extremity clot.
Severe aortic stenosis with cardiogenic shock status post TAVR on 04/06
Small left groin hematoma related to previous transcatheter aortic valve replacement on CT Abdomen Pelvis 04/15/25
- RHC 03/30 indicated aortic stenosis as source of low cardiac output/cardiogenic shock.
- s/p cardiac cath 04/02/25 - non-obstructive CAD
- Decision made for more urgent TAVR in hopes of tolerating HD (see below)
- s/p TAVR CT work-up with incidental finding of PE (see below)
- Has been getting Aspirin 81 mg daily -- last dose 04/13/25 morning -- hold further Aspirin for now given that patient going to OR with urology on 04/15/25
- Resume Aspirin tomorrow 04/17/25
- Appreciate CTS, Rate Analyst, Cardiology
- Dr. Yuri Larios (via [place] [facility] communication on 04/12/25) mentioned that holding anticoagulation right now (see below) is reasonable; in the tank terminal gauger, patient should be on ASA for the TAVR if not on
anticoagulation (to prevent leaflet thrombosis). If and when patient goes on any anticoagulation, then no Aspirin needed. Per Dr. Larios, if not on anticoagulation and having active bleeding, would hold Aspirin. Once no longer
having active bleeding, would resume Aspirin, but only if not on anticoagulation. If on anticoagulation, should not get Aspirin.
History of renal transplant in 2019 - donor renal transplant 2019 from [facility]
Acute on chronic renal failure requiring hemodialysis
-Recent Treatment for rejection in December 2024
-Losartan on hold
-Cellcept resumed 03/30/25 nephrology -- continue
-On steroids - Prednisone 2.5 mg BID -- continue
-Belatacept ordered per renal for 04/09/25 -- last belatacept dose was 04/09 (275mg/weight based)
-Status post temporary hemodialysis catheter -- this can now be removed as of 04/16/25 as not needing it and also to remove another potential source of infection
-Required hemodialysis on admission, received multiple sessions, but due to poor tolerance of HD, 03/29/25, transitioned to CRRT. Line clotted, off CRRT since.
-HD attempt on 04/01/25 resulted in tachycardia and tachypnea during HD, Severe aortic stenosis likely limiting factor for hemodynamic instability during HD
-*patient is now s/p TAVR. Renal function is stable/shown daily improvement and patient is non-oliguric therefore HD not needed to be reattempted. Post contrast again on 04/09 - BUN trended down, creatinine stable. Appreciate Renal eval.
-I communicated (via [place] [facility], on 04/12/25) with patient's manager membership Dr. Muhammad, who agreed that patient would be best served at his transplant center, [facility]. I communicated (via [place] [facility], on 04/12/25) with urologist
Hernán: urologically he has concerns about a hydronephrotic/ infected transplant- that is aside from the hematuria issue -- on 04/13/25, I discussed case together with Dr. Gross and urologist Dr. Jim over the phone -- Dr. Gross mentioned that
given patient's renal function is currently stable, Transplant doctors will not to anything different at [facility] at this time, he recommended further work-up with CT imaging and further evaluation with urology, and no transfer right now to [facility]
-Per urologist note 04/14/25: MOST CONSULTANTS AT THIS POINT HAVE NOTHING MORE TO ADD AND DESPITE THE GENERAL CONSENSUS THAT PT IS BETTER SERVED AT TERTIARY CARE CENTER AT THIS TIME DUE TO MULTIPLE ISSUES-COAGULOPATHY AND ONGOING BETTER AND
HYDRONEPHROTIC TRANSPLANT- BOTH [facility] AND [facility] HAVE REFUSED TRANSFER- FAMILY IS AWARE -- I agree with Dr. Jim's assessment
Hydronephrosis of transplanted kidney
- Obstructive uropathy of transplant kidney, Esteves placed 03/15/25
- Maintain Esteves catheter
- Patient considering TURP
- Despite addressing obstruction with Esteves Catheter and addressing urinary retention, patient's hydronephrosis had not improved
- Repeat CT Abdomen Pelvis without intravenous or oral contrast performed on 04/15/25: the CT showed unchanged severe hydronephrosis of transplant kidney, gas in the transplant ureter/collecting system, possible IV contrast from prior procedure
versus hemorrhage
-Patient went to OR as below, on 04/15/25
Acute hypoxic respiratory failure requiring intubation 03/21-03/25
Bilateral small pleural effusions and as seen on previous imaging, pulmonary fibrosis
-Remains on room air
-Likely multifactorial secondary to pulmonary edema versus pneumonia versus interstitial lung disease
-s/p empiric high dose steroids for possible ILD, now on home prednisone
-with improvement in CXR post fluid removal with HD, may have been related to fluid; s/p RHC with PCWP 8 (post fluid removal)
-s/p antibiotic course for possible pneumonia
-Pulmonary has signed off as 04/12/25
Septic shock associated with acute kidney injury, lactic acidosis secondary to Klebsiella bacteremia likely secondary to urinary tract infection
Transplant kidney pyelonephritis with Klebsiella and E. faecalis
Immunosuppressed
-s/p 14 days IV antibiotics (completed 04/02/25) -- but then antibiotics had to be resumed again on 04/14/25 (please see below)
-s/p pressor administration, now off
New fever on 04/14/25 evening, improving
Leukocytosis, resolved
Klebsiella pneumoniae bacteremia x 3 sets from 04/14/25 evening
- Repeat blood cx's pending.
- 04/15 s/p OR cysto, successful ureter stent placement. Per Urology + bleeding and pus from transplant kidney
- OR urine cx pending
- Continue cefepime (d2)
- Okay to stop Vancomycin (which was initially started on 04/14/25 to cover prior Enterococcus growth)
- Since patient is no longer on hemodialysis, okay to stop RIJ temp HD cath.
- Trend temps/wbc.
Pneumomediastinum
-Decreased pneumomediastinum on repeat CT Abdomen Pelvis 04/15/25
Pulmonary embolus within the posterior left lower lobe segmental pulmonary artery on CT Chest on 04/04/25
Short-segment left axillary vein thrombus
-Seen on CT Chest done in preparation for aortic valve surgery
-Pulmonary embolization from temporary dialysis line (which had previously clotted)??
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
-I communicated (via [place] [facility], on 04/12/25) with coupling machine operator Dr. Manjarrez who recommended against IVC filter as the patient has no lower extremity clot, and she also said not to maintain anticoagulation solely for short-segment axillary
vein clot; she recommended hold anticoagulation; she said patient seems to be at the point of medical futility.
-Additionally, last note from hematology on 04/13/25 suggested holding anticoagulation for now given hematuria, thrombocytopenia and absence of lower extremity clot.
-Cardiology (Dr. Yuri Larios) mentioned via [place] [facility] communication on 04/12/25 that if those blood clots and patient's atrial fibrillation are the only indications for anticoagulation, would favor a lower intensity strategy with warfarin as
suggested by Dr. Tilley (piano case maker who saw patient on 04/12/25) -- after piano case maker mentioned their recommendations on [place] [facility] communication, Dr. Manjarrez recommended against anticoagulation given no lower extremity clot
-Later in the [place] [facility] communication, Dr. Larios mentioned that holding anticoagulation is reasonable at this time
-Has been getting Aspirin 81 mg daily -- last dose 04/13/25 morning -- hold further Aspirin for now given that patient going to OR with urology on 04/15/25
-Resume Aspirin 81 mg daily tomorrow
Nonocclusive thrombus within the right cephalic vein within the distal aspect of the upper arm
Occlusive thrombus within the cephalic vein in the proximal forearm
-Conservative management for superficial venous thrombosis
Hyperglycemia
-Glucose values remain well-controlled
-Continue sliding scale coverage and NovoLog with Accu-Cheks
Bleeding around HD catheter, 04/04/25
-Area cleaned, had bleeding noted from one of the stitches; stitch removed, after injecting lidocaine new stitch placed at a different location. Hemostasis achieved. Appreciate mix chemist
Acute blood loss anemia with baseline chronic macrocytic anemia
Melena on 04/11-04/12
Epistaxis
Hematuria developed on 04/11/25-04/12/25
-Status post total of 10 units of PRBCs so far (10th unit was given perioperatively on 04/15/25)
-GI saw patient on 04/12/25, no endoscopy given current patient's current condition, GI has signed off
-Continue IV PPI BID
-I communicated (via [place] [facility], on 04/12/25) with coupling machine operator Dr. Manjarrez who recommended against IVC filter as he patient no lower extremity clot, and she also said not to maintain
anticoagulation solely for short-segment axillary vein clot; hold anticoagulation; she said patient seems to be at the point of medical futility.
-On 04/15/25, Dr. Jim took patient to the OR and found that patient is bleeding from the transplant, and pus was also present, he was able to place a urinary tract stent on 04/15/25 and he fulgurated small areas in the prostate
-Wean CBI -- as of 04/16/25, urine is clearing while patient is on minimal CBI
Constipation/Large Volume Stool in Abdominal X-Ray 04/15/25
-Already on Miralax
-Monitor bowel movements
Epistaxis
-Previously evaluated by ENT, status post left NC packing. now removed on 03/26/25. Appears deviated septum per ENT.
-Left nostril with Clot
-s/p topical bacitracin course
-gentle nasal saline sprays in b/l nasal cavities 1-2 sprays each nostril 3-4 times daily per ENT
-recall ENT if rebleeding occurs
Left Eye Subconjunctival Hemorrhage
-Developed overnight 04/03/25-04/04/25
-Continue to monitor
Toxic metabolic encephalopathy likely secondary to shock versus ICU delirium versus hypoxemia versus uremia
-Resolved
Atrial fibrillation with rapid ventricular response
Permanent Atrial Fibrillation
Atrial Flutter
- No anticoagulation at this time given bleeding/anemia/thrombocytopenia
- Aspirin is on hold as above for OR as above -- will resume tomorrow 04/17/25
- Continue Metoprolol.
Dilated gallbladder on CT Abdomen Pelvis 04/15/25
Hypertension
-Home Amlodipine 5 mg daily resumed on 04/13/25
-Holding Losartan for now given tenuous kidney situation with urinary bleeding
Multifactorial Anemia
-Iron studies noted from 03/26/25.
Sacrum Stage 2 Pressure Injury
-Wound care
Nutrition
-DHT feeds in addition to diet- Appetite poor.
Ex-Smoker
DVT Prophylaxis: SCDs only given bleeding.
Diet: Tube feeds -- Per discussion with Speech and Dietitian on 04/14/25: trial IDDSI 6 (soft/bite sized) to see if this requires less energy and increases PO intake slightly increase tube feeds to be Nepro 1.8 continuous. Rate 25ml/hr. flush 25ml.
Code status - Full Code
Progress on Transferring Patient to a Tertiary Care Facility
On 04/12/25, I called patient's Beata and patient's daughter Yolanda, and I answered all of their questions and concerns to satisfaction. I contacted Dr. Muhammad (patient's manager membership) per their request.
On 04/12/25, I spoke with hospitalist Dr. Gross at [facility], and he was thinking that since patient's kidney function is stable (creatinine stable, without any dialysis for more than 1 week), patient does not need to be transferred
right now. He recommended maybe a CT Abd/Pelvis to see whether the bleeding could be coming from his transplanted kidney. He also said that the hydronephrosis based on [facility] records is chronic. I conveyed this message to urologist Dr. Jim "Alla"and patient's manager membership Dr. Muhammad, who still recommended transfer given that patient's transplanted kidney is still with hydronephrosis, and possibly still infected despite antibiotics and Esteves Catheter. I then called [facility] transfer
center and spoke with [facility] Dr. Medina at 1:19 pm, and he mentioned that there is no transplant doctor services at [facility]; therefore I then spoke with transplant physician Dr. Alex Osborn (at [facility] around 1:51 PM, and he recommended that since patient got his transplant at [facility], he should go there. I conveyed this message to the other doctors involved in patient's care, including but not limited to "Alla"Hernán (urologist) and Dr. Muhammad (patient's outpatient manager membership). Dr. Muhammad spoke with patient's and daughter, and mentioned that potential transfer was not just about a chronically, hydronephrotic transplanted kidney, but a transplant
recipient with acute illness, requiring a higher level of care. Dr. Muhammad then spoke with the transplant manager membership (Dr. Crescencio Tran) who wondered what can they do there (at [facility]) that we cannot do here -- Dr. Crescencio Tran told Dr. Muhammad
that he will speak to the transfer team, and let Dr. Muhammad know. Family also said that they spoke to Lavon at the transplant team at [facility]; they spoke with Dr. Valencia and he supposedly said he will accept patient if family initiated
transfer.
On 04/13/25, I discussed case together with [facility] Hospitalist Dr. Gross and Urologist Dr. Jim over the phone (all 3 of us in the same phone conversation -- Dr. Gross mentioned that given patient's renal function is currently
stable, transplant doctors will not to anything different at [facility] at this time, he recommended further work-up with CT imaging and further evaluation with urology, and no transfer right now to [facility]. Transfer cancelled for now.
On 04/13/25, I spoke over the phone with patient's daughter Yolanda, and I answered all of their questions and concerns to satisfaction, and I let patient's and Yolanda both know that we will continue to monitor patient here at [place].
Bleeding, anemia, venous thromboembolism, post OR status after bleeding stent was found, bacteremia is a high risk encounter
Anticipated Discharge: > 48 hours
Subjective/Interval History
-
Date of Service: April 16, 2025
Patient was seen and examined. He reported that his surgery yesterday went well, he reported that he feels fine, and he denied any new symptoms or complaints.
Objective Data
-
Labs:
Laboratory Results
04/16/25
04:57
WBC 10.0
Hgb 7.7 L
Hct 24.1 L
Plt Count 102 L
PT 14.7 H
INR 1.17
APTT 28.9
Sodium 136
Potassium 4.6
Chloride 107
Carbon Dioxide 26
BUN 71 H
Creatinine 1.9 H
Glucose 112 H
Calcium 8.3 L
Vital Signs:
Vital Signs
Temp Pulse Resp BP Pulse Ox
98.2 F 74 15 158/74 97
04/16/25 07:42 04/16/25 06:06 04/16/25 06:06 04/16/25 06:06 04/16/25 06:06
I&O
04/15/25 04/16/25 04/17/25
06:59 06:59 06:59
Intake Total 1500 / 1500 2369 / 2369
Output Total 3550 / 3550 2200 / 2200
Balance -2049 / -2049 169 / 169
[2025-04-16 07:55] LABS: Glucose - Point of Care 170 mg/dl (70-99)
--- NOTE | 2025-04-16 08:06 | W.PN.URO.CBU ---
Today's Communication / Plan
-
wean cbi
follow cx data
restart low dose asa tomorrow
Assessment / Plan
-
hx of renal transplant with hydro of transplant kidney
urinary retention
UTI- urosepsis
hematuria
both hematuria and urosepsis originating for obstructed renal transplant
pt stable if not somewhat improved
lab parameters better
on antibx pending ucx
continue to trend wbc/cr levels
wean cbi- would restart low dose asa tomorrow due to recent tavr- eliquis should prob remain on hold due to multiple bleeding sites
will follow
of note- pt has chronic urinary retention and esteves cath should NOT be removed
Diagnosis
-
Date of Service: April 16, 2025
-
Patient Urologic Diagnosis:
hx of renal transplant
urinary retention
hydro of renal transplant
UTI
hematuria
UTI AND HEMATURIA DUE TO OBSTRUCTED TRANSPLANT
s/p cysto/transplant stent placement/fulguration 04/15
Subjective
-
pt asleep
afebrile/VSS
wbc and cr both down
urine clearing on minimal cbi
blood cx + for gram neg rods
Objective
-
Vital Signs
Temp Pulse Resp BP Pulse Ox
98.2 F 74 15 158/74 97
04/16/25 07:42 04/16/25 06:06 04/16/25 06:06 04/16/25 06:06 04/16/25 06:06
Intake and Output
04/15/25 04/16/25 04/17/25
06:59 06:59 06:59
Intake Total 1500 / 1500 2369 / 2369
Output Total 3550 / 3550 2200 / 2200
Balance -2049 / 169 / 169
Intake:
Oral fluids 480 / 480
IV fluids (Total) 480 / 480 1445 / 1445
IV piggybacks 100 / 100
Tube feeding 480 / 480
Feeding tube flush amount 540 / 540
Blood Products 344 / 344
Platelets 344 / 344
Output:
True Urine Output from CBI 3550 / 3550 2200 / 2200
Laboratory Results
04/16/25 04:57
04/16/25 04:57
Physical Exam
-
General - no acute distress
Abdomen - soft, non-tender
Genitalia - esteves in place
[2025-04-16] MEDS: NOVOLOG FLEXPEN 3 UNITS SC ×3 (08:55→17:11)
[2025-04-16] MEDS: NOVOLOG FLEXPEN-HIGH RESISTANCE 2 UNITS SC ×2 (08:57→13:15)
[2025-04-16] MEDS: PROTONIX IV 40 MG IV ×2 (08:58→19:48)
[2025-04-16] MEDS: DELTASONE 2.5 MG PO ×2 (08:58→19:48)
[2025-04-16] MEDS: NORVASC 5 MG PO (08:58)
[2025-04-16] MEDS: LOPRESSOR 25 MG PO ×2 (08:58→19:48)
[2025-04-16] MEDS: NSS (PRESERVATIVE FREE) 10 ML IV ×2 (08:58→19:48)
[2025-04-16] MEDS: DESENEX/MITRAZOL/ZEASORB 1 APPLIC TOPICAL ×2 (08:59→19:51)
[2025-04-16] MEDS: HYDROPHOR 1 APPLIC TOPICAL (08:59)
[2025-04-16] MEDS: SANTYL OINTMENT 1 APPLIC TOPICAL (09:00)
[2025-04-16] MEDS: OCEAN, SALINE MIST 1 SPRAYS NASAL ×2 (09:00→17:04)
[2025-04-16] MEDS: MIRALAX 17 GRAMS PO (09:00)
[2025-04-16] MEDS: SENOKOT-S 1 TABLET PO ×2 (09:01→19:48)
--- NOTE | 2025-04-16 09:46 | W.PN.ID1 ---
Date of Service
Date of Service: April 16, 2025
Today's Communication
Continue cefepime.
Assessment / Plan
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
# Obstructive uropathy of transplant kidney, esteves placed since 03/15
# s/p Recent shock transplant kidney pyelonephritis with Klebsiella and E. faecalis, Klebsiella bacteremia s/p 14d abx (against both org) completed 04/02/25
# s/p cardiogenic shock, respiratory failure intubated 03/21; extubated 03/25/25
# chronic interstitial lung disease
# Severe aortic stenosis s/p TAVR 04/06/25
# ELIZABETH on CKD requiring renal replacement therapy (03/20 - 04/01). ELIZABETH improving
# PE (04/04/25), LUE DVT (04/08/25), RUE DVT (04/12/25)
# LUE midforearm hematoma/bleeding from IV catheter attempt (04/09/25). No pseudoaneurysm .
# Gross hematuria , onset 04/11.
04/12/25 started CBI
# New fever 04/14, improving
# Leukocytosis, resolved
# Klebsiella pneumoniae bacteremia x 3 sets
# Complicated transplant kidney UTI/obstructive uropathy
- Repeat blood cx's pending.
- 04/15 s/p OR cysto, successful ureter stent placement. Per Urology + bleeding and pus from transplant kidney
OR urine cx pending
- Continue cefepime (d2)
- DC Vancomycin
- Pt no longer on HD. DC RIJ temp HD cath. OK per renal.
- Trend temps/wbc.
Chief Complaint
-: Fever, UTI and Bacteremia
Subjective / Review of Systems
No new complaints. comfortable.
Vital Signs / Physical Exam
Vital Signs
Vital Signs
Temp Pulse Resp BP Pulse Ox
98.2 F 82 15 169/81 97
04/16/25 07:42 04/16/25 08:58 04/16/25 06:06 04/16/25 08:58 04/16/25 06:06
Physical Exam
Constitutional: No Acute Distress, Comfortable and Chronically Ill
Eyes: No Conjunctival Hemorrhage and Sclera Anicteric
Cardiovascular: Irregular Rate and S1/S2
Pulmonary: Rales
Gastrointestinal: Soft, Non Tender and Non Distended
Genito-Urinary: Esteves and Clear Urine (CBI); Negative Hematuria
Extremities: Edema (LUE/ecchymotic)
Neurological: AO x 3
Lines: Other (RIJ intact)
Objective Data
Lab Data
Lab Results
04/16/25 04:57
04/16/25 04:57
ESR 87 mm/hour (0-20) H 04/11/25 03:29
PT 14.7 Sec (11.4-14.6) H 04/16/25 04:57
INR 1.17 04/16/25 04:57
APTT 28.9 Sec (23.4-35.0) 04/16/25 04:57
Estimated Creat Clear 34 ml/min 04/16/25 04:57
Lactic Acid 2.0 mmol/L (0.7-2.0) 04/14/25 20:51
Total Bilirubin 0.8 mg/dl (0.2-1.3) 04/11/25 03:29
AST 40 U/L (17-59) 04/11/25 03:29
ALT 32 U/L (0-50) 04/11/25 03:29
Alkaline Phosphatase 85 U/L (38-126) 04/11/25 03:29
C-Reactive Protein Cancelled 04/08/25 16:00
Most recent labs reviewed.
Micro Results:
04/16/25 04:57 Blood Culture - Pending
Blood/Venous
04/15/25 10:17 Urine Culture - Pending
Urine
04/14/25 20:01 Blood Culture - Preliminary
Blood/Venous Klebsiella pneumoniae group
Gram Stain - Final
04/14/25 20:01 Blood Culture - Preliminary
Blood/Venous Positive culture in progress
Gram Stain - Preliminary
04/14/25 20:50 Blood Culture - Preliminary
Blood/Venous Positive culture in progress
Gram Stain - Final
04/14/25 20:01 Influenza Types A & B (NOLVIA) - Final
Nasal Swab Negative for Influenza A & B, NAAT
Negative results must be combined with clinical observations
and patient history.
Nucleic Acid Amplification test (NAAT)performed on the
[employer] platform.
04/12/25 08:38 Urine Culture - Final
Urine NO GROWTH
03/20/25 05:07 Blood Culture - Final
Blood/Venous No Growth - Final Report
03/20/25 05:34 Blood Culture - Final
Blood/Venous No Growth - Final Report
03/18/25 18:13 Urine Culture - Final
Urine Klebsiella pneumoniae
Enterococcus faecalis
03/18/25 17:02 Blood Culture - Final
Blood/Venous Klebsiella pneumoniae
Gram Stain - Final
03/18/25 17:01 Blood Culture - Final
Blood/Venous Klebsiella pneumoniae
Gram Stain - Final
03/18/25 23:17 MRSA Screen - Final
Nose No Methicillin Resistant Staphylococcus aureus isolated.
03/18/25 17:03 Influenza Types A & B (NOLVIA) - Final
Nasal Swab Negative for Influenza A & B, NAAT
Negative results must be combined with clinical observations
and patient history.
Nucleic Acid Amplification test (NAAT)performed on the
[employer] platform.
04/15/25 CT a/p:
1. Severe hydronephrosis of transplant kidney, unchanged.
2. Very small volume of gas within the transplant renal collecting system, decreased as compared with the previous exam. As above, there is gas in the transplant ureter including along the anastomosis with the urinary bladder, therefore both
infection and gas related to Esteves catheter remain considerations.
3. Fluid fluid level within the renal transplant collecting system. This could be related to excretion of contrast from previous procedure. Hemorrhage is also possible.
4. Bilateral small pleural effusions. Pulmonary fibrosis as seen previously. Decreased pneumomediastinum.
5. Small left groin hematoma related to previous transcatheter aortic valve replacement.
6. Dilated gallbladder. No abnormal wall thickening or pericholecystic fluid identified.
04/14/25 CXR: Stable diffuse interstitial prominence likely reflects underlying chronic interstitial lung disease
04/12/25 LUE arterial study: Patent left radial artery with no evidence of pseudoaneurysm. Previously visualized area of abnormality in the mid radial artery is not seen on today's examination
04/09/25 LUE Angio: Small foci of extravasated contrast material seen within the soft tissues at the level of the mid forearm adjacent to the radial artery. Consistent with mild active hemorrhage. Generalized edema. A focal soft tissue collection is
difficult to identify with certainty.
03/31/25 CXR: Slightly improved pulmonary interstitial markings suggesting resolving interstitial edema. Pneumomediastinum without significant change.
03/28/[address]: Mild pneumomediastinum, with superior extension into the fat at the base of the neck, as well as at the posterior and lateral aspect of the right mid to upper thorax. Diffuse bilateral interstitial and groundglass opacity. This
could be related to fluid associated with interstitial and pulmonary edema related to volume overload or congestive heart failure. Alternatively, findings may be infectious in nature related to atypical or viral pneumonitis. No focal dense
consolidation.
03/20/25 CXR: Grossly stable severe diffuse bilateral interstitial and airspace disease which may reflect combination of pulmonary edema and pneumonia. Cannot rule out component of underlying chronic interstitial lung disease.
03/19/25 CXR: Progressive parenchymal disease process, as described. Differential includes progressive congestive heart failure with pulmonary edema versus diffuse bilateral pneumonia, right greater than left.
03/18/25 CT a/p: Severe acute edema and inflammation around the right lower quadrant renal transplant which is new from 12/17/2024. Severe hydronephrosis of the right intrarenal collecting system and right renal pelvis which has increased. ACUTE
PYELONEPHRITIS of the RIGHT LOWER QUADRANT RENAL TRANSPLANT is considered most likely. Acute infarction of the renal transplant is a less likely diagnostic possibility. Severe diffuse urinary bladder wall thickening with surrounding perivesical
inflammation which appears new from 12/17/2024 suggesting SEVERE ACUTE CYSTITIS. Esteves catheter in the urinary bladder. Mildly enlarged prostate gland.
Care Review
Plan reviewed with: Physician (Drs. Hernandez, Soto)
[2025-04-16] MEDS: CELLCEPT 1000 MG PO ×2 (10:49→19:48)
[2025-04-16] MEDS: ROXICODONE 5 MG PO ×2 (11:20→16:27)
[2025-04-16 12:11] LABS: Glucose - Point of Care 195 mg/dl (70-99)
--- NOTE | 2025-04-16 12:42 | W.PN.NEPH.PH ---
Today's Communication / Plan
-
d/c HD line
abx per ID
follow labs
Assessment/Plan
-
This is a 79-year-old gentleman who follows in our office with Dr. Muhammad after donor renal transplant 2019 from [facility]. His transplant course has been complicated by development of nephrotic range proteinuria as well as recent
cellular rejection December of this year. The episodes treated with Solu-Medrol. His creatinine has risen quickly over time in the last several months. He has gone from a creatinine around 2 now up to 4.4. He was noted to have hydronephrosis of
the transplanted kidney recently on ultrasound as well as CT scan. Esteves catheter was placed by urology a few days ago. His appetite has been poor as of late. Recently he also developed fever and malaise and this has brought him to the emergency
room. He was noted to be febrile in the ER. Blood pressure was stable though lower than his home readings of 132. He was 100 systolic in the ER. Creatinine was 4.7 with elevated lactate level and elevated white count. CT of the abdomen and
pelvis were performed with suspicion for pyelonephritis of the transplant. We are asked to assist in management of his renal issues.
Assessment
Sepsis syndrome, possible pyelonephritis
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
donor renal transplant with FSGS, recent T-cell rejection
Obstructive uropathy, Esteves catheter in place
ELIZABETH..
Anemia
Hyponatremia
lactic acidosis
TAVR 04/06/25
LUE arterial oozing
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
Plan
s/p OR on 04/15-noted gross hematuria from bleeding infeted transplant kidney s/p rt U stent
his bld cx are +ve now , ok to d/c HD catheter since plt are up and less risk of bleeding
abx per ID
stay ing off heparin, weaning CBI
monitor h/h, prn trasnfusion
Despite all of above he has stable renal function and non oliguric
last belatacept dose was 04/09 (275mg/weight based), continue pred/MMF
TF through DHT, wts stable and stable resp status
d/w pt
-
-
Date of Service: April 16, 2025
CC / HPI / ROS
-
Chief Complaint:
Sepsis
History of Present Illness:
ELIZABETH/Cr stable 1.9
BP stable
Hgb low 7.7 despite PRBC
hematuria cleared on CBI
plts still low improving to 102
s/p LUE agram 04/09
Review of Systems:
non oliguric with esteves
tube feeding, also trying to eat
no cp, no sob at rest
Labs
-
Labs:
WBC 10.0 10^3/uL (4.8-10.8) 04/16/25 04:57
RBC 2.55 10^6/uL (4.70-6.10) L 04/16/25 04:57
Hgb 7.7 g/dL (13.0-18.0) L 04/16/25 04:57
Hct 24.1 % (39.0-52.0) L 04/16/25 04:57
Plt Count 102 10^3/uL (130-400) L 04/16/25 04:57
Sodium 136 mmol/L (135-145) 04/16/25 04:57
Potassium 4.6 mmol/L (3.5-5.1) 04/16/25 04:57
Chloride 107 mmol/L (98-107) 04/16/25 04:57
Carbon Dioxide 26 mmol/L (22-30) 04/16/25 04:57
BUN 71 mg/dl (9-20) H 04/16/25 04:57
Creatinine 1.9 mg/dL (0.7-1.3) H 04/16/25 04:57
eGFR 35.44 04/16/25 04:57
Glucose 112 mg/dl (70-99) H 04/16/25 04:57
Calcium 8.3 mg/dl (8.4-10.2) L 04/16/25 04:57
Phosphorus 6.0 mg/dl (2.5-4.5) H 04/10/25 03:02
Tsx-[id number]-[id number] Pept 00464 pg/ml 04/08/25 16:55
Albumin 2.1 g/dl (3.5-5.0) L 04/11/25 03:29
Physical Exam
-
Vital Signs:
Vital Signs
Temp Pulse Resp BP Pulse Ox
98.0 F 82 15 169/81 97
04/16/25 11:41 04/16/25 08:58 04/16/25 06:06 04/16/25 08:58 04/16/25 06:06
Cardiovascular:: Regular rate and rhythm
Respiratory:: Bilateral: Coarse
Lung Excursion:: Normal
Abdomen:: Nontender and Soft
Bowel Sounds:: Normal
Extremity Edema:: None: Bilateral:
Esteves Catheter: Yes
--- NOTE | 2025-04-16 14:34 | CM ---
F/U: Spoke to Daughter (Dtr) Cely who has the list of facilities from Medicare.gov, but has not review them yet. Cely did say that mom who like a facility to ensure they keep in mind or provide care knowing he had kidney transplant and take
antirejection medications. NOHELIA Zaida shared that we would just need to know what in detail she is concerned about and perhaps have the liaison of that facility speak to her. Patient is not on HD anymore and his diet is advanced now.
Cely also shared that her father gets an infusion outpatient for his antirejection medication. Cely will talk to her mother and twin sister to provide facilities to Case Management.
[2025-04-16] MEDS: NOVOLOG FLEXPEN-HIGH RESISTANCE 4 UNITS SC (17:10)
[2025-04-16 17:17] LABS: Glucose - Point of Care 216 mg/dl (70-99)
[2025-04-16 21:18] LABS: Glucose - Point of Care 158 mg/dl (70-99)
[2025-04-16] MEDS: VALIUM 2 MG PO (22:04)
[2025-04-16] MEDS: MELATONIN 5 MG PO (22:04)
[2025-04-16] MEDS: OCEAN, SALINE MIST 2 SPRAYS NASAL (22:04)
[2025-04-17] VITALS (9 sets, daily range): BP systolic 128–171; BP diastolic 67–112; BMI 23.0
[2025-04-17] MEDS: ROXICODONE 5 MG PO ×4 (02:10→22:35)
--- NOTE | 2025-04-17 05:13 | PTCARENOTE ---
assumed care of patient. pt is AAOx3, able to make needs known. VSS. 94% RA. right nare dobhoff intact, nepro carb steady infusing at 25ml/hr with 25ml/hr flush. 3 way CBI draining yellow urine, no clots or blood noted. left arm dressing changed,
karl wrap reapplied. foam on sacrum intact. q2t. pt with complaints of lower back pain. medicated per JUL. packing intact to left nare. care ongoing.
[2025-04-17] MEDS: STERILE WATER FOR INJECTION 10 ML IV (06:02)
[2025-04-17] MEDS: MAXIPIME 1000 MG IV (06:02)
--- NOTE | 2025-04-17 06:31 | W.PN.URO.CBU ---
Today's Communication / Plan
-
stop CBI
Assessment / Plan
-
hx of renal transplant with hydro of transplant kidney
urinary retention
UTI- urosepsis
hematuria -- improved
Diagnosis
-
Date of Service: April 17, 2025
-
Patient Urologic Diagnosis:
hx of renal transplant
urinary retention
hydro of renal transplant
UTI
hematuria
UTI AND HEMATURIA DUE TO OBSTRUCTED TRANSPLANT
s/p cysto/transplant stent placement/fulguration 04/15
Subjective
-
comfortable
Objective
-
Vital Signs
Temp Pulse Resp BP Pulse Ox
97.8 F 97 21 154/82 94
04/17/25 02:42 04/17/25 06:00 04/17/25 06:00 04/17/25 06:00 04/17/25 06:00
Intake and Output
04/15/25 04/16/25 04/17/25
06:59 06:59 06:59
Intake Total 1500 / 1500 2369 / 2369 600 / 600
Output Total 3550 / 3550 2200 / 2200 2500 / 2500
Balance -205 / -2050 169 / 169 -1900 / -1900
Intake:
Oral fluids 480 / 480 600 / 600
IV fluids (Total) 480 / 480 1445 / 1445
IV piggybacks 100 / 100
Tube feeding 480 / 480
Feeding tube flush amount 540 / 540
Blood Products 344 / 344
Platelets 344 / 344
Output:
True Urine Output from CBI 3550 / 3550 2200 / 2200 2500 / 2500
Physical Exam
-
Disla with clear outflow
[2025-04-17 06:38] LABS: Hematocrit 25.4 % (39.0-52.0); Hemoglobin 8.5 g/dL (13.0-18.0); Mean Corp Hgb Conc. 33.5 g/dL (33.0-37.0); Mean Corpuscular Volume 91.7 fL (80.0-94.0); Platelet Count 135 10^3/uL (130-400); Red Cell Dist. Width 16.5 % (11.5-14.5)
[2025-04-17 07:43] LABS: Blood Urea Nitrogen 67 mg/dl (9-20); Calcium 8.1 mg/dl (8.4-10.2); Carbon Dioxide 23 mmol/L (22-30); Chloride 108 mmol/L (98-107); Estimated Creatinine Clearance 41 ml/min; Glucose 111 mg/dl (70-99); Potassium 4.4 mmol/L (3.5-5.1); Sodium 135 mmol/L (135-145); eGFR 43.56
--- NOTE | 2025-04-17 07:46 | W.PN.HOSP.TC ---
Today's Communication/Plan
-
See plan
Assessment / Plan
Assessment / Plan
Physical Exam
General: No Apparent Distress
HEENT: Normocephalic and Other (dobhoff)
Respiratory: Clear to Auscultation
Cardiac: Regular Rhythm, S1/S2 and Murmur
GI: Soft and Nontender. Positive bowel sounds.
Genito-urinary: Other (esteves, yellow urine while on CBI)
Musculoskeletal: No Clubbing and Other (left arm wrapped with compression)
Skin: Warm
Neuro: AO x 3
Psych: Calm
Assessment/Plan
79-year-old with history of end-stage renal disease status post kidney transplant 2019 on antirejection medications, hypertension, hyperlipidemia, atrial fibrillation on Eliquis, urinary retention status post catheter placement several days prior to
admission presenting to the emergency department with fever and chills as well as weakness, admitted for sepsis secondary to transplant pyelonephritis, acute renal failure of transplanted kidney with development of acute hypoxic respiratory failure,
inability to tolerate HD secondary to severe and now s/p TAVR 04/06.

Left Upper Extremity Hematoma
Likely contained pseudoaneurysm -- status post left mid forearm A-line placement, then forearm swelling, then found to have likely contained pseudoaneurysm based on imaging
-swelling started after removaL PIV; arterial line in setting of thrombocytopenia/AC
-arterial US/angiogram 04/09/25 with active extravasation in left forearm with associated hematoma
-appreciate Vascular surgery input - based on comorbidities/skin tissue integrity trying to avoid surgical intervention - continue karl bandage wrap and compression
-Repeat arterial duplex 04/12/25 -- with no evidence of active extravasation or pseudoaneurysm
-Continue karl wrap for gentle compression at the LUE -- edema has improved
-Continue daily or PRN dressing change for forearm skin tear, wound care nursing consulted
Acute blood loss anemia secondary to multiple sources: LUE hematoma, melena (see below), hematuria (see below), epistaxis
(see below - prior hospitalization with other bleeding episodes, patient has received many PRBC this admission)
-So far, patient has received 10 units of red blood cells this hospitalization (10th one was given in OR on 04/15/25)
-Follow CBC
Thrombocytopenia
-HIT panel testing was negative
-appreciate Heme eval
-s/p 1 unit PLT (on 04/09/25) in setting of bleeding, and on 04/15/25, received per urologist 2 more units of platelets perioperatively
-Appreciate hematology: last note from hematology on 04/13/25 suggested holding anticoagulation for now given hematuria, thrombocytopenia and absence of lower extremity clot.
Severe aortic stenosis with cardiogenic shock status post TAVR on 04/06
Small left groin hematoma related to previous transcatheter aortic valve replacement on CT Abdomen Pelvis 04/15/25
- RHC 03/30 indicated aortic stenosis as source of low cardiac output/cardiogenic shock.
- s/p cardiac cath 04/02/25 - non-obstructive CAD
- Decision made for more urgent TAVR in hopes of tolerating HD (see below)
- s/p TAVR CT work-up with incidental finding of PE (see below)
- Has been getting Aspirin 81 mg daily -- last dose 04/13/25 morning -- Aspirin was previously held given that patient went to OR with urology on 04/15/25
- Resume Aspirin today 04/17/25
- Appreciate CTS, [place], Cardiology
- Dr. Yuri Larios (via [facility] [employer] communication on 04/12/25) mentioned that holding anticoagulation right now (see below) is reasonable; in the retirement, patient should be on ASA for the TAVR if not on
anticoagulation (to prevent leaflet thrombosis). If and when patient goes on any anticoagulation, then no Aspirin needed. Per Dr. Larios, if not on anticoagulation and having active bleeding, would hold Aspirin. Once no longer
having active bleeding, would resume Aspirin, but only if not on anticoagulation. If on anticoagulation, should not get Aspirin.
History of renal transplant in 2019 - donor renal transplant 2019 from [facility]
Acute on chronic renal failure requiring hemodialysis
-Recent Treatment for rejection in December 2024
-Losartan on hold
-Cellcept resumed 03/30/25 nephrology -- continue
-On steroids - Prednisone 2.5 mg BID -- continue
-Belatacept ordered per renal for 04/09/25 -- last belatacept dose was 04/09 (275mg/weight based)
-Status post temporary hemodialysis catheter -- this was removed as of 04/16/25 as not needing it and also to remove another potential source of infection
-Required hemodialysis on admission, received multiple sessions, but due to poor tolerance of HD, 03/29/25, transitioned to CRRT. Line clotted, off CRRT since.
-HD attempt on 04/01/25 resulted in tachycardia and tachypnea during HD, Severe aortic stenosis likely limiting factor for hemodynamic instability during HD
-*patient is now s/p TAVR. Renal function is stable/shown daily improvement and patient is non-oliguric therefore HD not needed to be reattempted. Post contrast again on 04/09 - BUN trended down, creatinine stable. Appreciate Renal eval.
-I communicated (via [facility] [employer], on 04/12/25) with patient's automatic serging machine operator Dr. Muhammad, who agreed that patient would be best served at his transplant center, [facility]. I communicated (via [facility] [employer], on 04/12/25) with urologist
Hernán: urologically he has concerns about a hydronephrotic/ infected transplant- that is aside from the hematuria issue -- on 04/13/25, I discussed case together with Dr. Gross and urologist Dr. Jim over the phone -- Dr. Gross mentioned that
given patient's renal function is currently stable, Transplant doctors will not to anything different at [facility] at this time, he recommended further work-up with CT imaging and further evaluation with urology, and no transfer right now to [facility]
-Per urologist note 04/14/25: MOST CONSULTANTS AT THIS POINT HAVE NOTHING MORE TO ADD AND DESPITE THE GENERAL CONSENSUS THAT PT IS BETTER SERVED AT TERTIARY CARE CENTER AT THIS TIME DUE TO MULTIPLE ISSUES-COAGULOPATHY AND ONGOING BETTER AND
HYDRONEPHROTIC TRANSPLANT- BOTH [facility] AND [facility] HAVE REFUSED TRANSFER- FAMILY IS AWARE -- I agree with Dr. Jim's assessment
Hydronephrosis of transplanted kidney
- Obstructive uropathy of transplant kidney, Esteves placed 03/15/25
- Maintain Esteves catheter
- Patient considering TURP
- Despite addressing obstruction with Esteves Catheter and addressing urinary retention, patient's hydronephrosis had not improved
- Repeat CT Abdomen Pelvis without intravenous or oral contrast performed on 04/15/25: the CT showed unchanged severe hydronephrosis of transplant kidney, gas in the transplant ureter/collecting system, possible IV contrast from prior procedure
versus hemorrhage
-Patient went to OR as below, on 04/15/25
Acute hypoxic respiratory failure requiring intubation 03/21-03/25
Bilateral small pleural effusions and as seen on previous imaging, pulmonary fibrosis
-Remains on room air
-Likely multifactorial secondary to pulmonary edema versus pneumonia versus interstitial lung disease
-s/p empiric high dose steroids for possible ILD, now on home prednisone
-with improvement in CXR post fluid removal with HD, may have been related to fluid; s/p RHC with PCWP 8 (post fluid removal)
-s/p antibiotic course for possible pneumonia
-Pulmonary has signed off as 04/12/25
Septic shock associated with acute kidney injury, lactic acidosis secondary to Klebsiella bacteremia likely secondary to urinary tract infection
Transplant kidney pyelonephritis with Klebsiella and E. faecalis
Immunosuppressed
-s/p 14 days IV antibiotics (completed 04/02/25) -- but then antibiotics had to be resumed again on 04/14/25 (please see below)
-s/p pressor administration, now off
New fever on 04/14/25 evening, improving
Leukocytosis, resolved
Klebsiella pneumoniae bacteremia x 3 sets from 04/14/25 evening
- Repeat blood cx's pending.
- 04/15 s/p OR cysto, successful ureter stent placement. Per Urology + bleeding and pus from transplant kidney
- Previously since 04/14 received Vanco and Cefepime
- Now switched to Cefazolin; appreciate ID
- Follow urine culture
- Since patient is no longer on hemodialysis, okay to stop RIJ temp HD cath.
- Trend temps/wbc.
Pneumomediastinum
-Decreased pneumomediastinum on repeat CT Abdomen Pelvis 04/15/25
Pulmonary embolus within the posterior left lower lobe segmental pulmonary artery on CT Chest on 04/04/25
Short-segment left axillary vein thrombus
-Seen on CT Chest done in preparation for aortic valve surgery
-Pulmonary embolization from temporary dialysis line (which had previously clotted)??
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
-I communicated (via [facility] [employer], on 04/12/25) with admissions rn Dr. Manjarrez who recommended against IVC filter as the patient has no lower extremity clot, and she also said not to maintain anticoagulation solely for short-segment axillary
vein clot; she recommended hold anticoagulation; she said patient seems to be at the point of medical futility.
-Additionally, last note from hematology on 04/13/25 suggested holding anticoagulation for now given hematuria, thrombocytopenia and absence of lower extremity clot.
-Cardiology (Dr. Yuri Larios) mentioned via [facility] [employer] communication on 04/12/25 that if those blood clots and patient's atrial fibrillation are the only indications for anticoagulation, would favor a lower intensity strategy with warfarin as
suggested by Dr. Tilley (implementation architect who saw patient on 04/12/25) -- after implementation architect mentioned their recommendations on [facility] [employer] communication, Dr. Manjarrez recommended against anticoagulation given no lower extremity clot
-Later in the [facility] [employer] communication, Dr. Larios mentioned that holding anticoagulation is reasonable at this time
-Has been getting Aspirin 81 mg daily -- was previously held for OR with urology on 04/15/25
-Resume Aspirin 81 mg daily starting today 04/17/25
Nonocclusive thrombus within the right cephalic vein within the distal aspect of the upper arm
Occlusive thrombus within the cephalic vein in the proximal forearm
-Conservative management for superficial venous thrombosis
Hyperglycemia
-Glucose values remain well-controlled
-Continue sliding scale coverage and NovoLog with Accu-Cheks
Bleeding around HD catheter, 04/04/25
-Area cleaned, had bleeding noted from one of the stitches; stitch removed, after injecting lidocaine new stitch placed at a different location. Hemostasis achieved. 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
Acute blood loss anemia with baseline chronic macrocytic anemia
Melena on 04/11-04/12
Epistaxis
Hematuria developed on 04/11/25-04/12/25
-Status post total of 10 units of PRBCs so far (10th unit was given perioperatively on 04/15/25)
-GI saw patient on 04/12/25, no endoscopy given current patient's current condition, GI has signed off
-Continue IV PPI BID
-I communicated (via [facility] [employer], on 04/12/25) with admissions rn Dr. Manjarrez who recommended against IVC filter as he patient no lower extremity clot, and she also said not to maintain
anticoagulation solely for short-segment axillary vein clot; hold anticoagulation; she said patient seems to be at the point of medical futility.
-On 04/15/25, Dr. Jim took patient to the OR and found that patient is bleeding from the transplant, and pus was also present, he was able to place a urinary tract stent on 04/15/25 and he fulgurated small areas in the prostate
-Stopped CBI as of 04/17/25
Constipation/Large Volume Stool in Abdominal X-Ray 04/15/25
-Already on Miralax
-Monitor bowel movements
Epistaxis
-Previously evaluated by ENT, status post left NC packing. now removed on 03/26/25. Appears deviated septum per ENT.
-Left nostril had Clot
-s/p topical bacitracin course
-gentle nasal saline sprays in b/l nasal cavities 1-2 sprays each nostril 3-4 times daily per ENT
-recall ENT if rebleeding occurs
Left Eye Subconjunctival Hemorrhage
-Developed overnight 04/03/25-04/04/25
-Continue to monitor
Toxic metabolic encephalopathy likely secondary to shock versus ICU delirium versus hypoxemia versus uremia
-Resolved
Atrial fibrillation with rapid ventricular response
Permanent Atrial Fibrillation
Atrial Flutter
- No anticoagulation at this time given bleeding/anemia/thrombocytopenia
- Aspirin was previously on hold, now resumed
- Continue Metoprolol.
Dilated gallbladder on CT Abdomen Pelvis 04/15/25
Hypertension
-Home Amlodipine 5 mg daily resumed on 04/13/25
-Holding Losartan for now given tenuous kidney situation with urinary bleeding
Multifactorial Anemia
-Iron studies noted from 03/26/25.
Sacrum Stage 2 Pressure Injury
-Wound care
Nutrition
-Patient now has a good appetite and is tolerating a diet
-Continue oral diet
-Stopped tube feeds and Dobhoff tube on 04/17/25
Ex-Smoker
DVT Prophylaxis: SCDs only given bleeding.
Diet: Tube feeds -- Per discussion with Speech and Dietitian on 04/14/25: trial IDDSI 6 (soft/bite sized) to see if this requires less energy and increases PO intake slightly increase tube feeds to be Nepro 1.8 continuous. Rate 25ml/hr. flush 25ml.
Code status - Full Code
Progress on Transferring Patient to a Tertiary Care Facility
On 04/12/25, I called patient's Beata and patient's daughter Yolanda, and I answered all of their questions and concerns to satisfaction. I contacted Dr. Muhammad (patient's automatic serging machine operator) per their request.
On 04/12/25, I spoke with hospitalist Dr. Gross at [facility], and he was thinking that since patient's kidney function is stable (creatinine stable, without any dialysis for more than 1 week), patient does not need to be transferred
right now. He recommended maybe a CT Abd/Pelvis to see whether the bleeding could be coming from his transplanted kidney. He also said that the hydronephrosis based on [facility] records is chronic. I conveyed this message to urologist Dr. Jim
and patient's automatic serging machine operator Dr. Muhammad, who still recommended transfer given that patient's transplanted kidney is still with hydronephrosis, and possibly still infected despite antibiotics and Esteves Catheter. I then called [facility] transfer
center and spoke with [facility] Dr. Medina at 1:19 pm, and he mentioned that there is no transplant doctor services at [facility]; therefore I then spoke with transplant physician Dr. Alex Osborn (at [facility]) around 1:51 PM, and he recommended that since patient got his transplant at [facility], he should go there. I conveyed this message to the other doctors involved in patient's care, including but not limited to "Alla"Hernán (urologist) and Dr. Muhammad (patient's outpatient automatic serging machine operator). Dr. Muhammad spoke with patient's and daughter, and mentioned that potential transfer was not just about a chronically, hydronephrotic transplanted kidney, but a transplant
recipient with acute illness, requiring a higher level of care. Dr. Muhammad then spoke with the transplant automatic serging machine operator (Dr. Crescencio Tran) who wondered what can they do there (at [facility]) that we cannot do here -- Dr. Crescencio Tran told Dr. Muhammad
that he will speak to the transfer team, and let Dr. Muhammad know. Family also said that they spoke to Lavon at the transplant team at [facility]; they spoke with Dr. Valencia and he supposedly said he will accept patient if family initiated
transfer.
On 04/13/25, I discussed case together with [facility] Hospitalist Dr. Gross and Urologist Dr. Jim over the phone (all 3 of us in the same phone conversation -- Dr. Gross mentioned that given patient's renal function is currently
stable, transplant doctors will not to anything different at [facility] at this time, he recommended further work-up with CT imaging and further evaluation with urology, and no transfer right now to [facility]. Transfer cancelled for now.
On 04/13/25, I spoke over the phone with patient's daughter Yolanda, and I answered all of their questions and concerns to satisfaction, and I let patient's and Yolanda both know that we will continue to monitor patient here at [place].
Anemia, venous thromboembolism, post OR status after bleeding stent was found, bacteremia and complicated UTI is a high risk encounter
Anticipated Discharge: > 48 hours
Subjective/Interval History
-
Date of Service: April 17, 2025
Patient was seen and examined. He reported doing well, denied any new symptoms or complaints.
Objective Data
-
Labs:
Laboratory Results
04/17/25
06:15
WBC 8.5
Hgb 8.5 L
Hct 25.4 L
Plt Count 135 D
Sodium 135
Potassium 4.4
Chloride 108 H
Carbon Dioxide 23
BUN 67 H
Creatinine 1.6 H
Glucose 111 H
Calcium 8.1 L
Vital Signs:
Vital Signs
Temp Pulse Resp BP Pulse Ox
97.8 F 97 21 154/82 94
04/17/25 02:42 04/17/25 06:00 04/17/25 06:00 04/17/25 06:00 04/17/25 06:00
I&O
04/16/25 04/17/25 04/18/25
06:59 06:59 06:59
Intake Total 2369 / 2369 600 / 600
Output Total 2200 / 2200 2500 / 2500
Balance 169 / 169 -1900 / -1900
[2025-04-17 08:04] LABS: Glucose - Point of Care 132 mg/dl (70-99)
[2025-04-17] MEDS: NOVOLOG FLEXPEN-HIGH RESISTANCE SC (08:05)
[2025-04-17] MEDS: VALIUM 2 MG PO (08:25)
[2025-04-17] MEDS: DELTASONE 2.5 MG PO ×2 (08:30→20:00)
[2025-04-17] MEDS: SENOKOT-S PO (08:30)
[2025-04-17] MEDS: LOPRESSOR 25 MG PO ×2 (08:30→20:00)
[2025-04-17] MEDS: MIRALAX 17 GRAMS PO (08:31)
[2025-04-17] MEDS: HYDROPHOR 1 APPLIC TOPICAL (08:31)
[2025-04-17] MEDS: NOVOLOG FLEXPEN 3 UNITS SC ×3 (08:34→16:45)
[2025-04-17] MEDS: NSS (PRESERVATIVE FREE) 10 ML IV ×2 (08:34→20:01)
[2025-04-17] MEDS: PROTONIX IV 40 MG IV ×2 (08:34→20:01)
[2025-04-17] MEDS: NORVASC 5 MG PO (08:34)
[2025-04-17] MEDS: OCEAN, SALINE MIST 1 SPRAYS NASAL (08:36)
[2025-04-17] MEDS: SANTYL OINTMENT 1 APPLIC TOPICAL (08:36)
[2025-04-17] MEDS: DESENEX/MITRAZOL/ZEASORB 1 APPLIC TOPICAL ×2 (08:37→20:00)
[2025-04-17] MEDS: CELLCEPT 1000 MG PO ×2 (09:45→22:35)
--- NOTE | 2025-04-17 10:33 | W.PN.ID1 ---
Date of Service
Date of Service: April 17, 2025
Today's Communication
follow repeat blood cultures
- start cefazolin 2 gm IV q8 (d3)
- follow renal function - reported baseline around 2.0 however may be improving beyond that
Assessment / Plan
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
# Obstructive uropathy of transplant kidney, esteves placed since 03/15
# s/p Recent shock transplant kidney pyelonephritis with Klebsiella and E. faecalis, Klebsiella bacteremia s/p 14d abx (against both org) completed 04/02/25
# s/p cardiogenic shock, respiratory failure intubated 03/21; extubated 03/25/25
# chronic interstitial lung disease
# Severe aortic stenosis s/p TAVR 04/06/25
# ELIZABETH on CKD requiring renal replacement therapy (03/20 - 04/01). ELIZABETH improving
# PE (04/04/25), LUE DVT (04/08/25), RUE DVT (04/12/25)
# LUE midforearm hematoma/bleeding from IV catheter attempt (04/09/25). No pseudoaneurysm .
# Gross hematuria , onset 04/11.
04/12/25 started CBI
# New fever 04/14, resolved
# Leukocytosis, resolved
# Klebsiella pneumoniae bacteremia x 3 sets
# Complicated transplant kidney UTI/obstructive uropathy
- Repeat blood cx's 04/16 and 04/17 pending.
- 04/15 s/p OR cysto, successful ureter stent placement. Per Urology + bleeding and pus from transplant kidney
OR urine cx pending - GNR
- start cefazolin 2 gm IV q8 (d3)
- follow renal function - reported baseline around 2.0 however may be improving beyond that
- Pt no longer on HD. DC RIJ temp HD cath. OK per renal.
- Trend temps/wbc.
Chief Complaint
-: Fever, UTI and Bacteremia
Subjective / Review of Systems
no further fevers
running hypertensive
no complaints
Vital Signs / Physical Exam
Vital Signs
Vital Signs
Temp Pulse Resp BP Pulse Ox
97.5 F 81 32 171/96 97
04/17/25 08:11 04/17/25 10:00 04/17/25 10:00 04/17/25 08:30 04/17/25 10:00
Physical Exam
Constitutional: No Acute Distress
Cardiovascular: Regular Rate and S1/S2; Negative Murmur or Rub
Pulmonary: Clear and Symmetric; Negative Wheezes or Rales
Gastrointestinal: Soft, Non Tender, Non Distended and Normal Bowel Sounds
Skin: Warm and Dry; Negative Rash or Jaundice
Objective Data
Lab Data
Lab Results
04/17/25 06:15
04/17/25 06:15
ESR 87 mm/hour (0-20) H 04/11/25 03:29
PT 14.7 Sec (11.4-14.6) H 04/16/25 04:57
INR 1.17 04/16/25 04:57
APTT 28.9 Sec (23.4-35.0) 04/16/25 04:57
Estimated Creat Clear 41 ml/min 04/17/25 06:15
Lactic Acid 2.0 mmol/L (0.7-2.0) 04/14/25 20:51
Total Bilirubin 0.8 mg/dl (0.2-1.3) 04/11/25 03:29
AST 40 U/L (17-59) 04/11/25 03:29
ALT 32 U/L (0-50) 04/11/25 03:29
Alkaline Phosphatase 85 U/L (38-126) 04/11/25 03:29
C-Reactive Protein Cancelled 04/08/25 16:00
Most recent labs reviewed.
Micro Results:
04/17/25 06:15 Blood Culture - Pending
Blood/Venous
04/15/25 10:17 Urine Culture - Preliminary
Urine Gram negative bacilli
04/14/25 20:01 Blood Culture - Preliminary
Blood/Venous Klebsiella pneumoniae
Gram Stain - Preliminary
04/14/25 20:50 Blood Culture - Final
Blood/Venous Klebsiella pneumoniae
Gram Stain - Final
04/14/25 20:01 Blood Culture - Final
Blood/Venous Klebsiella pneumoniae
Gram Stain - Final
04/16/25 04:57 Blood Culture - Preliminary
Blood/Venous No Growth in 24 hours- Final report to follow
04/14/25 20:01 Influenza Types A & B (NOLVIA) - Final
Nasal Swab Negative for Influenza A & B, NAAT
Negative results must be combined with clinical observations
and patient history.
Nucleic Acid Amplification test (NAAT)performed on the
[employer] ID NOW platform.
04/12/25 08:38 Urine Culture - Final
Urine NO GROWTH
03/20/25 05:07 Blood Culture - Final
Blood/Venous No Growth - Final Report
03/20/25 05:34 Blood Culture - Final
Blood/Venous No Growth - Final Report
03/18/25 18:13 Urine Culture - Final
Urine Klebsiella pneumoniae
Enterococcus faecalis
03/18/25 17:02 Blood Culture - Final
Blood/Venous Klebsiella pneumoniae
Gram Stain - Final
03/18/25 17:01 Blood Culture - Final
Blood/Venous Klebsiella pneumoniae
Gram Stain - Final
03/18/25 23:17 MRSA Screen - Final
Nose No Methicillin Resistant Staphylococcus aureus isolated.
03/18/25 17:03 Influenza Types A & B (NOLVIA) - Final
Nasal Swab Negative for Influenza A & B, NAAT
Negative results must be combined with clinical observations
and patient history.
Nucleic Acid Amplification test (NAAT)performed on the
[employer] ID NOW platform.
Blood Culture Final 04/17/25-0837
Klebsiella pneumoniae
Positive for Klebsiella pneumoniae group.
Performed by [employer] PCR methodology.
Organism 1 Klebsiella pneumoniae
1. Klebsiella pneumoniae
M.I.C. RX
--------- ---
Amoxicillin/Potas. Clavulanate <=8/4 S
Ampicillin >16 R
Ampicillin/Sulbactam 8/4 S
Aztreonam <=4 S
Cefazolin <=2 S
Ertapenem <=0.5 S
Ciprofloxacin <=0.25 S
Gentamicin <=2 S
Meropenem <=1 S
Piperacillin/Tazobactam <=8 S
Tetracycline <=4 S
Tobramycin <=2 S
Trimethoprim/Sulfamethoxazole <=2/38 S
04/15/25 CT a/p:
1. Severe hydronephrosis of transplant kidney, unchanged.
2. Very small volume of gas within the transplant renal collecting system, decreased as compared with the previous exam. As above, there is gas in the transplant ureter including along the anastomosis with the urinary bladder, therefore both
infection and gas related to Esteves catheter remain considerations.
3. Fluid fluid level within the renal transplant collecting system. This could be related to excretion of contrast from previous procedure. Hemorrhage is also possible.
4. Bilateral small pleural effusions. Pulmonary fibrosis as seen previously. Decreased pneumomediastinum.
5. Small left groin hematoma related to previous transcatheter aortic valve replacement.
6. Dilated gallbladder. No abnormal wall thickening or pericholecystic fluid identified.
04/14/25 CXR: Stable diffuse interstitial prominence likely reflects underlying chronic interstitial lung disease
04/12/25 LUE arterial study: Patent left radial artery with no evidence of pseudoaneurysm. Previously visualized area of abnormality in the mid radial artery is not seen on today's examination
04/09/25 LUE Angio: Small foci of extravasated contrast material seen within the soft tissues at the level of the mid forearm adjacent to the radial artery. Consistent with mild active hemorrhage. Generalized edema. A focal soft tissue collection is
difficult to identify with certainty.
03/31/25 CXR: Slightly improved pulmonary interstitial markings suggesting resolving interstitial edema. Pneumomediastinum without significant change.
03/28/[address]: Mild pneumomediastinum, with superior extension into the fat at the base of the neck, as well as at the posterior and lateral aspect of the right mid to upper thorax. Diffuse bilateral interstitial and groundglass opacity. This
could be related to fluid associated with interstitial and pulmonary edema related to volume overload or congestive heart failure. Alternatively, findings may be infectious in nature related to atypical or viral pneumonitis. No focal dense
consolidation.
03/20/25 CXR: Grossly stable severe diffuse bilateral interstitial and airspace disease which may reflect combination of pulmonary edema and pneumonia. Cannot rule out component of underlying chronic interstitial lung disease.
03/19/25 CXR: Progressive parenchymal disease process, as described. Differential includes progressive congestive heart failure with pulmonary edema versus diffuse bilateral pneumonia, right greater than left.
03/18/25 CT a/p: Severe acute edema and inflammation around the right lower quadrant renal transplant which is new from 12/17/2024. Severe hydronephrosis of the right intrarenal collecting system and right renal pelvis which has increased. ACUTE
PYELONEPHRITIS of the RIGHT LOWER QUADRANT RENAL TRANSPLANT is considered most likely. Acute infarction of the renal transplant is a less likely diagnostic possibility. Severe diffuse urinary bladder wall thickening with surrounding perivesical
inflammation which appears new from 12/17/2024 suggesting SEVERE ACUTE CYSTITIS. Esteves catheter in the urinary bladder. Mildly enlarged prostate gland.
[2025-04-17 11:50] LABS: Glucose - Point of Care 192 mg/dl (70-99)
[2025-04-17] MEDS: AFRIN NASAL SPRAY 2 SPRAYS NASAL (12:09)
[2025-04-17] MEDS: ANCEF 10 IV ×2 (12:11→19:59)
[2025-04-17] MEDS: NOVOLOG FLEXPEN-HIGH RESISTANCE 2 UNITS SC ×2 (12:11→16:45)
--- NOTE | 2025-04-17 12:16 | W.PN.NEPH.PH ---
Addendum entered and electronically signed by Brigida Valera MD 04/17/25 12:22:
BP increasing trend may increase CCB if Bp remains high
Original Note:
Today's Communication / Plan
-
follow labs
Assessment/Plan
-
This is a 79-year-old gentleman who follows in our office with Dr. Muhammad after donor renal transplant 2018 from [facility]. His transplant course has been complicated by development of nephrotic range proteinuria as well as recent
cellular rejection December of this year. The episodes treated with Solu-Medrol. His creatinine has risen quickly over time in the last several months. He has gone from a creatinine around 2 now up to 4.4. He was noted to have hydronephrosis of
the transplanted kidney recently on ultrasound as well as CT scan. Esteves catheter was placed by urology a few days ago. His appetite has been poor as of late. Recently he also developed fever and malaise and this has brought him to the emergency
room. He was noted to be febrile in the ER. Blood pressure was stable though lower than his home readings of 132. He was 100 systolic in the ER. Creatinine was 4.7 with elevated lactate level and elevated white count. CT of the abdomen and
pelvis were performed with suspicion for pyelonephritis of the transplant. We are asked to assist in management of his renal issues.
Assessment
Sepsis syndrome, possible pyelonephritis
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
donor renal transplant with FSGS, recent T-cell rejection
Obstructive uropathy, Esteves catheter in place
ELIZABETH..
Anemia
Hyponatremia
lactic acidosis
TAVR 04/06/25
LUE arterial oozing
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
Plan
s/p OR on 04/15-noted gross hematuria from bleeding infeted transplant kidney s/p rt U stent
abx per ID for kleb bacteremia
off CBI and no hematuria
monitor h/h, hb better at 8.5, prn trasnfusion
Despite all of above he has stable renal function and non oliguric
last belatacept dose was 04/09 (275mg/weight based), continue pred/MMF
tolerating diet and to be off TF
d/w pt
-
-
Date of Service: April 17, 2025
CC / HPI / ROS
-
Chief Complaint:
Sepsis
History of Present Illness:
ELIZABETH/Cr better at 1.6
BP stable
Hgb better at 8.5, last PRBC 04/15
no gross hematuria cleared on CBI
plts normal at 135
Review of Systems:
non oliguric with esteves
tube feeding,eating well
no cp, no sob at rest
Labs
-
Labs:
WBC 8.5 10^3/uL (4.8-10.8) 04/17/25 06:15
RBC 2.77 10^6/uL (4.70-6.10) L 04/17/25 06:15
Hgb 8.5 g/dL (13.0-18.0) L 04/17/25 06:15
Hct 25.4 % (39.0-52.0) L 04/17/25 06:15
Plt Count 135 10^3/uL (130-400) D 04/17/25 06:15
Sodium 135 mmol/L (135-145) 04/17/25 06:15
Potassium 4.4 mmol/L (3.5-5.1) 04/17/25 06:15
Chloride 108 mmol/L (98-107) H 04/17/25 06:15
Carbon Dioxide 23 mmol/L (22-30) 04/17/25 06:15
BUN 67 mg/dl (9-20) H 04/17/25 06:15
Creatinine 1.6 mg/dL (0.7-1.3) H 04/17/25 06:15
eGFR 43.56 04/17/25 06:15
Glucose 111 mg/dl (70-99) H 04/17/25 06:15
Calcium 8.1 mg/dl (8.4-10.2) L 04/17/25 06:15
Phosphorus 6.0 mg/dl (2.5-4.5) H 04/10/25 03:02
Fex-W-Ylwjenxedft Pept 70933 pg/ml 04/08/25 16:55
Albumin 2.1 g/dl (3.5-5.0) L 04/11/25 03:29
Physical Exam
-
Vital Signs:
Vital Signs
Temp Pulse Resp BP Pulse Ox
97.2 F 81 32 171/96 97
04/17/25 11:10 04/17/25 10:00 04/17/25 10:00 04/17/25 08:30 04/17/25 10:00
Cardiovascular:: Regular rate and rhythm
Respiratory:: Bilateral: Coarse
Lung Excursion:: Normal
Abdomen:: Nontender and Soft
Bowel Sounds:: Normal
Extremity Edema:: None: Bilateral:
Esteves Catheter: Yes
Other Findings::
left UE in KRISSY bandage, echymosis noted
[2025-04-17] MEDS: ANESTHETIC LOZENGE 1 LOZENGE PO (12:21)
[2025-04-17] MEDS: TYLENOL 650 MG PO (13:51)
[2025-04-17] MEDS: OCEAN, SALINE MIST 2 SPRAYS NASAL (16:29)
[2025-04-17 17:01] LABS: Glucose - Point of Care 192 mg/dl (70-99)
[2025-04-17 17:23] LABS: Glucose - Point of Care 152 mg/dl (70-99)
--- NOTE | 2025-04-17 19:07 | PTCARENOTE ---
Dobhoff removed and tubefeeding stopped per order. Patient tolerated well. No tissue/mucosal damage to left nare.
[2025-04-17] MEDS: SENOKOT-S 1 TABLET PO (20:01)
[2025-04-17 21:34] LABS: Glucose - Point of Care 173 mg/dl (70-99)
[2025-04-17] MEDS: MELATONIN 5 MG PO (22:34)
[2025-04-17] MEDS: OCEAN, SALINE MIST 50 SPRAYS NASAL (22:35)
[2025-04-18] VITALS (9 sets, daily range): BP systolic 129–152; BP diastolic 68–136; BMI 22.7
--- NOTE | 2025-04-18 01:34 | PTCARENOTE ---
Pt received from previous shift in bed. AAOx3, KASAAN, slow speech. Telemetry = Afib/flutter. Full physical assessment documented (refer to worklist). Dobhoff removed by RN on previous shift. Meds whole w/thins. [address] way esteves catheter draining clear
yellow. Sacral and heel foams c/d/i. Turned and postioned for comfort, heels floated. HS care and CHG bathing cloths completed. R midline flushed, no blood return observed. Medicated for sacral/groin pain per order. Call aislinn w/in reach. Safe
environment maintained.
[2025-04-18] MEDS: ANCEF 10 IV (03:49)
[2025-04-18] MEDS: ROXICODONE 5 MG PO (03:59)
[2025-04-18 04:21] LABS: Hematocrit 27.1 % (39.0-52.0); Hemoglobin 8.8 g/dL (13.0-18.0); Mean Corp Hgb Conc. 32.5 g/dL (33.0-37.0); Mean Corpuscular Volume 93.4 fL (80.0-94.0); Platelet Count 149 10^3/uL (130-400); Red Cell Dist. Width 16.2 % (11.5-14.5)
[2025-04-18 04:45] LABS: Blood Urea Nitrogen 65 mg/dl (9-20); Calcium 8.6 mg/dl (8.4-10.2); Carbon Dioxide 22 mmol/L (22-30); Chloride 107 mmol/L (98-107); Estimated Creatinine Clearance 41 ml/min; Glucose 109 mg/dl (70-99); Potassium 4.4 mmol/L (3.5-5.1); Sodium 134 mmol/L (135-145); eGFR 43.56
[2025-04-18] MEDS: ZOFRAN 4 MG IV ×3 (04:58→23:21)
[2025-04-18 08:23] LABS: Glucose - Point of Care 122 mg/dl (70-99)
[2025-04-18] MEDS: NOVOLOG FLEXPEN-HIGH RESISTANCE SC ×2 (08:34→11:41)
--- NOTE | 2025-04-18 09:01 | W.PN.HOSP.TC ---
Today's Communication/Plan
-
Monitor patient for any chest, SOB, hypoxia, or any new signs or symptoms of venous thromboembolism, given that patient is not on anticoagulation right now and has been diagnosed with PE, upper extremity DVT
Patient so far tolerating Aspirin well after it was resumed yesterday
Seems like urologist's stent placement/operation was a success and patient is making a great recovery
Patient's appetite seems good, no need to tube feeds/Dobhoff (both discontinued on 04/17/25)
Patient is stable doing well, lab numbers seem to be overall improving today
Stable for transfer to telemetry
Assessment / Plan
Assessment / Plan
Physical Exam
General: No Apparent Distress
HEENT: Normocephalic and Other (dobhoff)
Respiratory: Clear to Auscultation
Cardiac: Regular Rhythm, S1/S2 and Murmur
GI: Soft and Nontender. Positive bowel sounds.
Genito-urinary: Other (esteves, yellow urine while on CBI)
Musculoskeletal: No Clubbing and Other (left arm wrapped with compression)
Skin: Warm
Neuro: AO x 3
Psych: Calm
Assessment/Plan
79-year-old with history of end-stage renal disease status post kidney transplant 2019 on antirejection medications, hypertension, hyperlipidemia, atrial fibrillation on Eliquis, urinary retention status post catheter placement several days prior to
admission presenting to the emergency department with fever and chills as well as weakness, admitted for sepsis secondary to transplant pyelonephritis, acute renal failure of transplanted kidney with development of acute hypoxic respiratory failure,
inability to tolerate HD secondary to severe and now s/p TAVR 04/06.

Left Upper Extremity Hematoma
Likely contained pseudoaneurysm -- status post left mid forearm A-line placement, then forearm swelling, then found to have likely contained pseudoaneurysm based on imaging
-swelling started after removaL PIV; arterial line in setting of thrombocytopenia/AC
-arterial US/angiogram 04/09/25 with active extravasation in left forearm with associated hematoma
-appreciate Vascular surgery input - based on comorbidities/skin tissue integrity trying to avoid surgical intervention - continue karl bandage wrap and compression
-Repeat arterial duplex 04/12/25 -- with no evidence of active extravasation or pseudoaneurysm
-Continue karl wrap for gentle compression at the LUE -- edema has improved
-Continue daily or PRN dressing change for forearm skin tear, wound care nursing consulted
Acute blood loss anemia secondary to multiple sources: LUE hematoma, melena (see below), hematuria (see below), epistaxis
(see below - prior hospitalization with other bleeding episodes, patient has received many PRBC this admission)
-So far, patient has received 10 units of red blood cells this hospitalization (10th one was given in OR on 04/15/25)
-Follow CBC
Thrombocytopenia
-HIT panel testing was negative
-appreciate Heme eval
-s/p 1 unit PLT (on 04/09/25) in setting of bleeding, and on 04/15/25, received per urologist 2 more units of platelets perioperatively
-Appreciate hematology: last note from hematology on 04/13/25 suggested holding anticoagulation for now given hematuria, thrombocytopenia and absence of lower extremity clot.
Severe aortic stenosis with cardiogenic shock status post TAVR on 04/06
Small left groin hematoma related to previous transcatheter aortic valve replacement on CT Abdomen Pelvis 04/15/25
- RHC 03/30 indicated aortic stenosis as source of low cardiac output/cardiogenic shock.
- s/p cardiac cath 04/02/25 - non-obstructive CAD
- Decision made for more urgent TAVR in hopes of tolerating HD (see below)
- s/p TAVR CT work-up with incidental finding of PE (see below)
- Has been getting Aspirin 81 mg daily -- last dose 04/13/25 morning -- Aspirin was previously held given that patient went to OR with urology on 04/15/25
- Resumed Aspirin on 04/17/25 -- so far tolerating well
- Appreciate CTS, Sourcing Specialist, Cardiology
- Dr. Yuri Larios (via [place] [employer] communication on 04/12/25) mentioned that holding anticoagulation right now (see below) is reasonable; in the alf, patient should be on ASA for the TAVR if not on
anticoagulation (to prevent leaflet thrombosis). If and when patient goes on any anticoagulation, then no Aspirin needed. Per Dr. Larios, if not on anticoagulation and having active bleeding, would hold
Aspirin. Once no longer having active bleeding, would resume Aspirin, but only if not on anticoagulation. If on anticoagulation, should not get Aspirin.
History of renal transplant in 2019 - donor renal transplant 2019 from [facility]
Acute on chronic renal failure requiring hemodialysis
-Recent Treatment for rejection in December 2024
-Losartan on hold
-Cellcept resumed 03/30/25 nephrology -- continue
-On steroids - Prednisone 2.5 mg BID -- continue
-Belatacept ordered per renal for 04/09/25 -- last belatacept dose was 04/09 (275mg/weight based)
-Status post temporary hemodialysis catheter -- this was removed as of 04/16/25 as not needing it and also to remove another potential source of infection
-Required hemodialysis on admission, received multiple sessions, but due to poor tolerance of HD, 03/29/25, transitioned to CRRT. Line clotted, off CRRT since.
-HD attempt on 04/01/25 resulted in tachycardia and tachypnea during HD, Severe aortic stenosis likely limiting factor for hemodynamic instability during HD
-*patient is now s/p TAVR. Renal function is stable/shown daily improvement and patient is non-oliguric therefore HD not needed to be reattempted. Post contrast again on 04/09 - BUN trended down, creatinine stable. Appreciate Renal eval.
-I communicated (via [place] [facility], on 04/12/25) with patient's monument letterer Dr. Muhammad, who agreed that patient would be best served at his transplant center, [facility]. I communicated (via [email or web address] Text, on 04/12/25) with urologist
Hernán: urologically he has concerns about a hydronephrotic/ infected transplant- that is aside from the hematuria issue -- on 04/13/25, I discussed case together with Dr. Gross and urologist Dr. Jim over the phone -- Dr. Gross mentioned that
given patient's renal function is currently stable, Transplant doctors will not to anything different at [place] at this time, he recommended further work-up with CT imaging and further evaluation with urology, and no transfer right now to [place] -- further work-up and eval and urologic stent was done here, and patient is now improving
Hydronephrosis of transplanted kidney
- Obstructive uropathy of transplant kidney, Esteves placed 03/15/25
- Maintain Esteves catheter
- Patient considering TURP
- Despite addressing obstruction with Esteves Catheter and addressing urinary retention, patient's hydronephrosis had not improved
- Repeat CT Abdomen Pelvis without intravenous or oral contrast performed on 04/15/25: the CT showed unchanged severe hydronephrosis of transplant kidney, gas in the transplant ureter/collecting
system, possible IV contrast from prior procedure versus hemorrhage
- Patient went to OR with urology, as below, on 04/15/25
Acute hypoxic respiratory failure requiring intubation 03/21-03/25
Bilateral small pleural effusions and as seen on previous imaging, pulmonary fibrosis
-Remains on room air
-Likely multifactorial secondary to pulmonary edema versus pneumonia versus interstitial lung disease
-s/p empiric high dose steroids for possible ILD, now on home prednisone
-with improvement in CXR post fluid removal with HD, may have been related to fluid; s/p RHC with PCWP 8 (post fluid removal)
-s/p antibiotic course for possible pneumonia
-Pulmonary has signed off as 04/12/25
Septic shock associated with acute kidney injury, lactic acidosis secondary to Klebsiella bacteremia likely secondary to urinary tract infection
Transplant kidney pyelonephritis with Klebsiella and E. faecalis
Immunosuppressed
-s/p 14 days IV antibiotics (completed 04/02/25) -- but then antibiotics had to be resumed again on 04/14/25 (please see below)
-s/p pressor administration, now off
New fever on 04/14/25 evening, improving
Leukocytosis, resolved
Klebsiella pneumoniae bacteremia x 3 sets from 04/14/25 evening
- Repeat blood cx's with no growth to date
- 04/15 s/p OR cysto, successful ureter stent placement. Per Urology + bleeding and pus from transplant kidney
- Previously since 04/14 received Vanco and Cefepime
- Now switched to Ceftriaxone; appreciate ID
- Urine culture grew Klebsiella pneumoniae
- Since patient is no longer on hemodialysis, okay to stop RIJ temp HD cath -- it was removed a few days ago
- Trend temps/wbc.
Pneumomediastinum
-Decreased pneumomediastinum on repeat CT Abdomen Pelvis 04/15/25
Pulmonary embolus within the posterior left lower lobe segmental pulmonary artery on CT Chest on 04/04/25
Short-segment left axillary vein thrombus
-Seen on CT Chest done in preparation for aortic valve surgery
-Pulmonary embolization from temporary dialysis line (which had previously clotted)??
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
-I communicated (via [place] [facility], on 04/12/25) with wood machine carver Dr. Manjarrez who recommended against IVC filter as the patient has no lower extremity clot, and she also said not to maintain anticoagulation solely for short-segment axillary
vein clot; she recommended hold anticoagulation
-Additionally, the note from hematology on 04/13/25 suggested holding anticoagulation for now given hematuria, thrombocytopenia and absence of lower extremity clot.
-Cardiology (Dr. Yuri Larios) mentioned via [place] [employer] communication on 04/12/25 that if those blood clots and patient's atrial fibrillation are the only indications for anticoagulation, would favor a lower intensity strategy with warfarin as
suggested by Dr. Tilley (manager of planning who saw patient on 04/12/25) -- after manager of planning mentioned their recommendations on [place] [employer] communication, Dr. Manjarrez recommended against anticoagulation given no lower extremity clot -- so no
anticoagulation for now, but could trial in the near future perhaps since patient is now improving
-Later in the [place] [employer] communication, Dr. Larios mentioned that holding anticoagulation is reasonable at this time
-Has been getting Aspirin 81 mg daily -- was previously held for OR with urology on 04/15/25
-Resumed Aspirin 81 mg daily starting on 04/17/25 -- so far tolerating well
Nonocclusive thrombus within the right cephalic vein within the distal aspect of the upper arm
Occlusive thrombus within the cephalic vein in the proximal forearm
-Conservative management for superficial venous thrombosis
Hyperglycemia
-Glucose values remain well-controlled
-Continue sliding scale coverage and NovoLog with Accu-Cheks
Bleeding around HD catheter, 04/04/25
-Area cleaned, had bleeding noted from one of the stitches; stitch removed, after injecting lidocaine new stitch placed at a different location. Hemostasis achieved. Appreciate carpenter supervisor
Acute blood loss anemia with baseline chronic macrocytic anemia
Melena on 04/11-04/12
Epistaxis
Hematuria developed on 04/11/25-04/12/25
-Status post total of 10 units of PRBCs so far (10th unit was given perioperatively on 04/15/25)
-GI saw patient on 04/12/25, no endoscopy given current patient's current condition, GI has signed off
-Continue IV PPI BID
-I communicated (via [place] [employer], on 04/12/25) with wood machine carver Dr. Manjarrez who recommended against IVC filter as he patient no lower extremity clot, and she also said not to maintain
anticoagulation solely for short-segment axillary vein clot; hold anticoagulation; she said patient seems to be at the point of medical futility.
-On 04/15/25, Dr. Jim took patient to the OR and found that patient is bleeding from the transplant, and pus was also present, he was able to place a urinary tract stent on 04/15/25 and he fulgurated small areas in the prostate
-Stopped CBI as of 04/17/25 -- urine remains clear, free of blood as of 04/18/25
Constipation/Large Volume Stool in Abdominal X-Ray 04/15/25
-Already on Miralax
-Monitor bowel movements
Epistaxis
-Previously evaluated by ENT, status post left NC packing. now removed on 03/26/25. Appears deviated septum per ENT.
-Left nostril had Clot
-s/p topical bacitracin course
-gentle nasal saline sprays in b/l nasal cavities 1-2 sprays each nostril 3-4 times daily per ENT
-recall ENT if rebleeding occurs
Left Eye Subconjunctival Hemorrhage
-Developed overnight 04/03/25-04/04/25
-Continue to monitor
Toxic metabolic encephalopathy likely secondary to shock versus ICU delirium versus hypoxemia versus uremia
-Resolved
Atrial fibrillation with rapid ventricular response
Permanent Atrial Fibrillation
Atrial Flutter
- No anticoagulation at this time given bleeding/anemia/thrombocytopenia
- Aspirin was previously on hold, then resumed as above
- Continue Metoprolol.
Dilated gallbladder on CT Abdomen Pelvis 04/15/25
Hypertension
-Home Amlodipine 5 mg daily resumed on 04/13/25
-Holding Losartan for now given tenuous kidney situation with urinary bleeding
Multifactorial Anemia
-Iron studies noted from 03/26/25.
Sacrum Stage 2 Pressure Injury
-Wound care
Nutrition
-Patient now has a good appetite and is tolerating a diet
-Continue oral diet
-Stopped tube feeds and Dobhoff tube on 04/17/25
Ex-Smoker
DVT Prophylaxis: SCDs only given bleeding.
Diet: Tube feeds -- Per discussion with Speech and Dietitian on 04/14/25: trial IDDSI 6 (soft/bite sized) to see if this requires less energy and increases PO intake slightly increase tube feeds to be Nepro 1.8 continuous. Rate 25ml/hr. flush 25ml.
Code status - Full Code
Progress on Transferring Patient to a Tertiary Care Facility
On 04/12/25, I called patient's Beata and patient's daughter Yolanda, and I answered all of their questions and concerns to satisfaction. I contacted Dr. Muahmmad (patient's monument letterer) per their request.
On 04/12/25, I spoke with hospitalist Dr. Gross at [facility], and he was thinking that since patient's kidney function is stable (creatinine stable, without any dialysis for more than 1 week), patient does not need to be transferred
right now. He recommended maybe a CT Abd/Pelvis to see whether the bleeding could be coming from his transplanted kidney. He also said that the hydronephrosis based on [facility] records is chronic. I conveyed this message to urologist Dr. Jim
and patient's monument letterer Dr. Muhammad, who still recommended transfer given that patient's transplanted kidney is still with hydronephrosis, and possibly still infected despite antibiotics and Esteves Catheter. I then called [facility] transfer
center and spoke with [facility] Dr. Medina at 1:19 pm, and he mentioned that there is no transplant doctor services at [facility]; therefore I then spoke with transplant physician Dr. Alex Osborn (at [facility]) around 1:51 PM, and he recommended that since patient got his transplant at [facility], he should go there. I conveyed this message to the other doctors involved in patient's care, including but not limited to "Alla"Hernán (urologist) and Dr. Muhammad (patient's outpatient monument letterer). Dr. Muhammad spoke with patient's and daughter, and mentioned that potential transfer was not just about a chronically, hydronephrotic transplanted kidney, but a transplant
recipient with acute illness, requiring a higher level of care. Dr. Muhammad then spoke with the transplant monument letterer (Dr. Crescencio Tran) who wondered what can they do there (at [facility]) that we cannot do here -- Dr. Crescencio Tran told Dr. Muhammad
that he will speak to the transfer team, and let Dr. Muhammad know. Family also said that they spoke to Lavon at the transplant team at [facility]; they spoke with Dr. Valencia and he supposedly said he will accept patient if family initiated
transfer.
On 04/13/25, I discussed case together with [facility] Hospitalist Dr. Gross and Urologist Dr. Jim over the phone (all 3 of us in the same phone conversation -- Dr. Gross mentioned that given patient's renal function is currently
stable, transplant doctors will not to anything different at [place] at this time, he recommended further work-up with CT imaging and further evaluation with urology, and no transfer right now to [facility]. Transfer cancelled for now.
On 04/13/25, I spoke over the phone with patient's daughter Yolanda, and I answered all of their questions and concerns to satisfaction, and I let patient's and Yolanda both know that we will continue to monitor patient here at [place].
On 04/18/25, I spoke over the phone with patient's daughter Yolanda, and I answered all of their questions and concerns to satisfaction.
Anemia, venous thromboembolism, post OR status after bleeding stent was found, bacteremia and complicated UTI is a high risk encounter
Anticipated Discharge: 24 - 48 hours
Subjective/Interval History
-
Date of Service: April 18, 2025
Patient was seen and examined. He was doing well, denied any chest pain, SOB, or any other issues. He has good appetite.
Objective Data
-
Labs:
Laboratory Results
04/18/25
03:34
WBC 7.5
Hgb 8.8 L
Hct 27.1 L
Plt Count 149
Sodium 134 L
Potassium 4.4
Chloride 107
Carbon Dioxide 22
BUN 65 H
Creatinine 1.6 H
Glucose 109 H
Calcium 8.6
Vital Signs:
Vital Signs
Temp Pulse Resp BP Pulse Ox
97.7 F 103 22 143/77 95
04/18/25 03:04 04/18/25 07:00 04/18/25 07:00 04/18/25 06:00 04/18/25 07:00
I&O
04/17/25 04/18/25 04/19/25
06:59 06:59 06:59
Intake Total 600 / 600 240 / 240
Output Total 2500 / 2500 4500 / 4500
Balance -1900 / -1900 -4260 / -4260
--- NOTE | 2025-04-18 10:15 | W.PN.ID1 ---
Date of Service
Date of Service: April 18, 2025
Today's Communication
ceftriaxone
Assessment / Plan
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
# Obstructive uropathy of transplant kidney, esteves placed since 03/15
# s/p Recent shock transplant kidney pyelonephritis with Klebsiella and E. faecalis, Klebsiella bacteremia s/p 14d abx (against both org) completed 04/02/25
# s/p cardiogenic shock, respiratory failure intubated 03/21; extubated 03/25/25
# chronic interstitial lung disease
# Severe aortic stenosis s/p TAVR 04/06/25
# ELIZABETH on CKD requiring renal replacement therapy (03/20 - 04/01). ELIZABETH improving
# PE (04/04/25), LUE DVT (04/08/25), RUE DVT (04/12/25)
# LUE midforearm hematoma/bleeding from IV catheter attempt (04/09/25). No pseudoaneurysm .
# Gross hematuria , onset 04/11.
04/12/25 started CBI
# New fever 04/14, resolved
# Leukocytosis, resolved
# Klebsiella pneumoniae bacteremia x 3 sets
# Complicated transplant kidney UTI/obstructive uropathy
- Repeat blood cx's 04/16 and 04/17 pending.
- 04/15 s/p OR cysto, successful ureter stent placement. Per Urology + bleeding and pus from transplant kidney
OR urine cx - also K pneumoniae with different sensitivities - intermediate to cefazolin, sensitive to ceftriaxone
- start ceftriaxone 2 gm IV q24 (d4); stopped cefazolin
- follow renal function - reported baseline around 2.0, currently running 1.6
- Trend temps/wbc.
Chief Complaint
-: Fever, UTI and Bacteremia
Subjective / Review of Systems
afebrile
bp stable
Vital Signs / Physical Exam
Vital Signs
Vital Signs
Temp Pulse Resp BP Pulse Ox
98.1 F 103 22 143/77 95
04/18/25 07:00 04/18/25 07:00 04/18/25 07:00 04/18/25 06:00 04/18/25 07:00
Physical Exam
Constitutional: No Acute Distress
Cardiovascular: Regular Rate and S1/S2; Negative Murmur or Rub
Pulmonary: Clear and Symmetric; Negative Wheezes or Rales
Gastrointestinal: Soft, Non Tender, Non Distended and Normal Bowel Sounds
Genito-Urinary: Other (no tenderness over the transplant)
Skin: Warm and Dry; Negative Rash or Jaundice
Objective Data
Lab Data
Lab Results
04/18/25 03:34
04/18/25 03:34
ESR 87 mm/hour (0-20) H 04/11/25 03:29
PT 14.7 Sec (11.4-14.6) H 04/16/25 04:57
INR 1.17 04/16/25 04:57
APTT 28.9 Sec (23.4-35.0) 04/16/25 04:57
Estimated Creat Clear 41 ml/min 04/18/25 03:34
Lactic Acid 2.0 mmol/L (0.7-2.0) 04/14/25 20:51
Total Bilirubin 0.8 mg/dl (0.2-1.3) 04/11/25 03:29
AST 40 U/L (17-59) 04/11/25 03:29
ALT 32 U/L (0-50) 04/11/25 03:29
Alkaline Phosphatase 85 U/L (38-126) 04/11/25 03:29
C-Reactive Protein Cancelled 04/08/25 16:00
Most recent labs reviewed.
Blood Culture Final 04/17/25-836
Klebsiella pneumoniae
Positive for Klebsiella pneumoniae group.
Performed by [employer] PCR methodology.
Organism 1 Klebsiella pneumoniae
1. Klebsiella pneumoniae
M.I.C. RX
--------- ---
Amoxicillin/Potas. Clavulanate <=8/4 S
Ampicillin >16 R
Ampicillin/Sulbactam 8/4 S
Aztreonam <=4 S
Cefazolin <=2 S
Ertapenem <=0.5 S
Ciprofloxacin <=0.25 S
Gentamicin <=2 S
Meropenem <=1 S
Piperacillin/Tazobactam <=8 S
Tetracycline <=4 S
Tobramycin <=2 S
Trimethoprim/Sulfamethoxazole <=2/38 S
Urine Culture Final 04/18/25-904
CC: 10,000 CFU/ML Klebsiella pneumoniae STRAIN 1
CC: 10,000 CFU/ML Klebsiella pneumoniae STRAIN 2
Organism 1 Klebsiella pneumoniae
Organism 2 Klebsiella pneumoniae#2
K.PNEUMO K.PNEUMO#2
M.I.C. RX M.I.C. RX
--------- --- --------- ---
Amoxicillin/Potas. Clavulanate <=8/4 S <=8/4 S
Ampicillin >16 R >16 R
Ampicillin/Sulbactam 16/8 I >16/8 R
Aztreonam <=4 S <=4 S
Cefazolin 4 I 4 I
Cefepime <=2 S <=2 S
Ceftazidime <=1 S <=1 S
Ceftriaxone <=1 S <=1 S
Ertapenem <=0.5 S <=0.5 S
Ciprofloxacin <=0.25 S <=0.25 S
Gentamicin <=2 S <=2 S
Meropenem <=1 S <=1 S
Nitrofurantoin-Urine Only >64 R 64 I
Piperacillin/Tazobactam <=8 S <=8 S
Tetracycline 8 I 8 I
Tobramycin <=2 S <=2 S
Micro Results:
04/15/25 10:17 Urine Culture - Final
Urine Klebsiella pneumoniae
Klebsiella pneumoniae#2
04/17/25 06:15 Blood Culture - Preliminary
Blood/Venous No Growth in 24 hours- Final report to follow
04/16/25 04:57 Blood Culture - Preliminary
Blood/Venous No Growth in 48 hours- Final report to follow
04/14/25 20:01 Blood Culture - Preliminary
Blood/Venous Klebsiella pneumoniae
Gram Stain - Preliminary
04/14/25 20:50 Blood Culture - Final
Blood/Venous Klebsiella pneumoniae
Gram Stain - Final
04/14/25 20:01 Blood Culture - Final
Blood/Venous Klebsiella pneumoniae
Gram Stain - Final
04/14/25 20:01 Influenza Types A & B (NOLVIA) - Final
Nasal Swab Negative for Influenza A & B, NAAT
Negative results must be combined with clinical observations
and patient history.
Nucleic Acid Amplification test (NAAT)performed on the
[employer] platform.
04/12/25 08:38 Urine Culture - Final
Urine NO GROWTH
03/20/25 05:07 Blood Culture - Final
Blood/Venous No Growth - Final Report
03/20/25 05:34 Blood Culture - Final
Blood/Venous No Growth - Final Report
03/18/25 18:13 Urine Culture - Final
Urine Klebsiella pneumoniae
Enterococcus faecalis
03/18/25 17:02 Blood Culture - Final
Blood/Venous Klebsiella pneumoniae
Gram Stain - Final
03/18/25 17:01 Blood Culture - Final
Blood/Venous Klebsiella pneumoniae
Gram Stain - Final
03/18/25 23:17 MRSA Screen - Final
Nose No Methicillin Resistant Staphylococcus aureus isolated.
03/18/25 17:03 Influenza Types A & B (NOLVIA) - Final
Nasal Swab Negative for Influenza A & B, NAAT
Negative results must be combined with clinical observations
and patient history.
Nucleic Acid Amplification test (NAAT)performed on the
[employer] platform.
Blood Culture Final 04/17/25-0837
Klebsiella pneumoniae
Positive for Klebsiella pneumoniae group.
Performed by [employer] PCR methodology.
Organism 1 Klebsiella pneumoniae
1. Klebsiella pneumoniae
M.I.C. RX
--------- ---
Amoxicillin/Potas. Clavulanate <=8/4 S
Ampicillin >16 R
Ampicillin/Sulbactam 8/4 S
Aztreonam <=4 S
Cefazolin <=2 S
Ertapenem <=0.5 S
Ciprofloxacin <=0.25 S
Gentamicin <=2 S
Meropenem <=1 S
Piperacillin/Tazobactam <=8 S
Tetracycline <=4 S
Tobramycin <=2 S
Trimethoprim/Sulfamethoxazole <=2/38 S
04/15/25 CT a/p:
1. Severe hydronephrosis of transplant kidney, unchanged.
2. Very small volume of gas within the transplant renal collecting system, decreased as compared with the previous exam. As above, there is gas in the transplant ureter including along the anastomosis with the urinary bladder, therefore both
infection and gas related to Esteves catheter remain considerations.
3. Fluid fluid level within the renal transplant collecting system. This could be related to excretion of contrast from previous procedure. Hemorrhage is also possible.
4. Bilateral small pleural effusions. Pulmonary fibrosis as seen previously. Decreased pneumomediastinum.
5. Small left groin hematoma related to previous transcatheter aortic valve replacement.
6. Dilated gallbladder. No abnormal wall thickening or pericholecystic fluid identified.
04/14/25 CXR: Stable diffuse interstitial prominence likely reflects underlying chronic interstitial lung disease
04/12/25 LUE arterial study: Patent left radial artery with no evidence of pseudoaneurysm. Previously visualized area of abnormality in the mid radial artery is not seen on today's examination
04/09/25 LUE Angio: Small foci of extravasated contrast material seen within the soft tissues at the level of the mid forearm adjacent to the radial artery. Consistent with mild active hemorrhage. Generalized edema. A focal soft tissue collection is
difficult to identify with certainty.
03/31/25 CXR: Slightly improved pulmonary interstitial markings suggesting resolving interstitial edema. Pneumomediastinum without significant change.
03/28/[address]: Mild pneumomediastinum, with superior extension into the fat at the base of the neck, as well as at the posterior and lateral aspect of the right mid to upper thorax. Diffuse bilateral interstitial and groundglass opacity. This
could be related to fluid associated with interstitial and pulmonary edema related to volume overload or congestive heart failure. Alternatively, findings may be infectious in nature related to atypical or viral pneumonitis. No focal dense
consolidation.
03/20/25 CXR: Grossly stable severe diffuse bilateral interstitial and airspace disease which may reflect combination of pulmonary edema and pneumonia. Cannot rule out component of underlying chronic interstitial lung disease.
03/19/25 CXR: Progressive parenchymal disease process, as described. Differential includes progressive congestive heart failure with pulmonary edema versus diffuse bilateral pneumonia, right greater than left.
03/18/25 CT a/p: Severe acute edema and inflammation around the right lower quadrant renal transplant which is new from 12/17/2024. Severe hydronephrosis of the right intrarenal collecting system and right renal pelvis which has increased. ACUTE
PYELONEPHRITIS of the RIGHT LOWER QUADRANT RENAL TRANSPLANT is considered most likely. Acute infarction of the renal transplant is a less likely diagnostic possibility. Severe diffuse urinary bladder wall thickening with surrounding perivesical
inflammation which appears new from 12/17/2024 suggesting SEVERE ACUTE CYSTITIS. Esteves catheter in the urinary bladder. Mildly enlarged prostate gland.
[2025-04-18] MEDS: MIRALAX 17 GRAMS PO (10:24)
[2025-04-18] MEDS: NSS (PRESERVATIVE FREE) 10 ML IV ×2 (10:24→20:46)
[2025-04-18] MEDS: LOPRESSOR 25 MG PO ×2 (10:26→20:45)
[2025-04-18] MEDS: DELTASONE 2.5 MG PO ×2 (10:27→20:44)
[2025-04-18] MEDS: NORVASC 5 MG PO (10:27)
[2025-04-18] MEDS: SENOKOT-S 1 TABLET PO ×2 (10:27→20:45)
[2025-04-18] MEDS: LOW STRENGTH ASPIRIN 81 MG PO (10:28)
[2025-04-18] MEDS: OCEAN, SALINE MIST 2 SPRAYS NASAL ×2 (10:28→17:49)
[2025-04-18] MEDS: SANTYL OINTMENT 1 APPLIC TOPICAL (10:29)
[2025-04-18] MEDS: CELLCEPT 1000 MG PO ×2 (10:29→20:46)
[2025-04-18] MEDS: HYDROPHOR 1 APPLIC TOPICAL (10:31)
[2025-04-18] MEDS: NOVOLOG FLEXPEN 3 UNITS SC ×3 (10:31→17:49)
[2025-04-18] MEDS: DESENEX/MITRAZOL/ZEASORB 1 APPLIC TOPICAL ×2 (10:31→20:46)
[2025-04-18] MEDS: PROTONIX IV 40 MG IV ×2 (10:32→20:45)
[2025-04-18 11:31] LABS: Glucose - Point of Care 121 mg/dl (70-99)
--- NOTE | 2025-04-18 12:26 | W.PN.URO.CBU ---
Today's Communication / Plan
-
will be discharged with Disla and ureteral stent -- to f/u with transplant team
Assessment / Plan
-
hx of renal transplant with hydro of transplant kidney
urinary retention
Klebsiella UTI- urosepsis
hematuria -- improved
Diagnosis
-
Date of Service: April 18, 2025
-
Patient Urologic Diagnosis:
hx of renal transplant
urinary retention
hydro of renal transplant
UTI
hematuria
UTI AND HEMATURIA DUE TO OBSTRUCTED TRANSPLANT
s/p cysto/transplant stent placement/fulguration 04/15
Subjective
-
'I feel goo now.'
Objective
-
Vital Signs
Temp Pulse Resp BP Pulse Ox
97.3 F 109 30 147/84 95
04/18/25 11:00 04/18/25 11:00 04/18/25 11:00 04/18/25 10:35 04/18/25 11:00
Intake and Output
04/17/25 04/18/25 04/19/25
06:59 06:59 06:59
Intake Total 600 / 600 240 / 240
Output Total 2500 / 2500 4500 / 4500
Balance -1900 / -1900 -4260 / -4260
Intake:
Oral fluids 600 / 600 240 / 240
Output:
Urine, Disla 4500 / 4500
True Urine Output from CBI 2500 / 2500
Laboratory Results
04/18/25 03:34
04/18/25 03:34
Klebsiella
Physical Exam
-
General - well developed, well nourished, no acute distress
Genitalia -Disla draining clear outflow
Care Review
Data Reviewed
Discussed with: Nursing
[2025-04-18] MEDS: STERILE WATER FOR INJECTION 20 ML IV (12:31)
[2025-04-18] MEDS: LIDOCAINE 4% PATCH 1 PATCH TOPICAL (12:31)
[2025-04-18] MEDS: ROCEPHIN 2000 MG IV (12:33)
--- NOTE | 2025-04-18 12:41 | W.PN.NEPH.PH ---
Today's Communication / Plan
-
follow labs
Assessment/Plan
-
This is a 79-year-old gentleman who follows in our office with Dr. Muhammad after donor renal transplant 2019 from [facility]. His transplant course has been complicated by development of nephrotic range proteinuria as well as recent
cellular rejection December of this year. The episodes treated with Solu-Medrol. His creatinine has risen quickly over time in the last several months. He has gone from a creatinine around 2 now up to 4.4. He was noted to have hydronephrosis of
the transplanted kidney recently on ultrasound as well as CT scan. Esteves catheter was placed by urology a few days ago. His appetite has been poor as of late. Recently he also developed fever and malaise and this has brought him to the emergency
room. He was noted to be febrile in the ER. Blood pressure was stable though lower than his home readings of 132. He was 100 systolic in the ER. Creatinine was 4.7 with elevated lactate level and elevated white count. CT of the abdomen and
pelvis were performed with suspicion for pyelonephritis of the transplant. We are asked to assist in management of his renal issues.
Assessment
Sepsis syndrome, possible pyelonephritis
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
donor renal transplant with FSGS, recent T-cell rejection
Obstructive uropathy, Esteves catheter in place
ELIZABETH..
Anemia
Hyponatremia
lactic acidosis
TAVR 04/06/25
LUE arterial oozing
GENETICS PHYSICIAN-He had been making outpatient arrangements for eventual ESRD and transplant evaluation at [facility]/previously on peritoneal dialysis prior to transfer
Plan
s/p OR on 04/15-noted gross hematuria from bleeding infeted transplant kidney s/p rt U stent on 04/15
abx per ID for kleb bacteremia
off CBI and no hematuria
monitor h/h, hb stable 8.8, prn trasnfusion
Despite all of above he has stable renal function cr better than baseline and non oliguric
last belatacept dose was 04/09 (275mg/weight based-monthly dose), continue pred/MMF
tolerating diet and off TF
d/w pt
-
-
Date of Service: April 18, 2025
CC / HPI / ROS
-
Chief Complaint:
Sepsis
History of Present Illness:
ELIZABETH/Cr better at 1.6-stable
BP stable
Hgb better at 8.8, last PRBC 04/15
no gross hematuria cleared off CBI
Review of Systems:
non oliguric with esteves
off tube feeding,eating well
no cp, no sob at rest
Labs
-
Labs:
WBC 7.5 10^3/uL (4.8-10.8) 04/18/25 03:34
RBC 2.90 10^6/uL (4.70-6.10) L 04/18/25 03:34
Hgb 8.8 g/dL (13.0-18.0) L 04/18/25 03:34
Hct 27.1 % (39.0-52.0) L 04/18/25 03:34
Plt Count 149 10^3/uL (130-400) 04/18/25 03:34
Sodium 134 mmol/L (135-145) L 04/18/25 03:34
Potassium 4.4 mmol/L (3.5-5.1) 04/18/25 03:34
Chloride 107 mmol/L (98-107) 04/18/25 03:34
Carbon Dioxide 22 mmol/L (22-30) 04/18/25 03:34
BUN 65 mg/dl (9-20) H 04/18/25 03:34
Creatinine 1.6 mg/dL (0.7-1.3) H 04/18/25 03:34
eGFR 43.56 04/18/25 03:34
Glucose 109 mg/dl (70-99) H 04/18/25 03:34
Calcium 8.6 mg/dl (8.4-10.2) 04/18/25 03:34
Phosphorus 6.0 mg/dl (2.5-4.5) H 04/10/25 03:02
Tji-Y-Pxqseiclvco Pept [id number] pg/ml 04/08/25 16:55
Albumin 2.1 g/dl (3.5-5.0) L 04/11/25 03:29
Physical Exam
-
Vital Signs:
Vital Signs
Temp Pulse Resp BP Pulse Ox
97.3 F 109 30 147/84 95
04/18/25 11:00 04/18/25 11:00 04/18/25 11:00 04/18/25 10:35 04/18/25 11:00
Cardiovascular:: Regular rate and rhythm
Respiratory:: Bilateral: CTA (decreased BS)
Lung Excursion:: Normal
Abdomen:: Nontender and Soft
Bowel Sounds:: Normal
Extremity Edema:: None: Bilateral:
Esteves Catheter: Yes
Other Findings::
left UE echymosis noted-improving edema
[2025-04-18] MEDS: TYLENOL 650 MG PO (14:35)
--- NOTE | 2025-04-18 16:30 | PTCARENOTE ---
pts L arm was looking dusky, still with good palpable pulse, however karl wrap bunch in areas causing constriction. Removed wound dressing and karl. Applied Hydrophor to entire arm and placed on pillow. In about 3 hours color coming back to arm,
fingers white in areas instead of dusky. concern to replace but will before end of shift and pass on to let Vascular or hospitalist reevaluate
[2025-04-18 17:23] LABS: Glucose - Point of Care 157 mg/dl (70-99)
[2025-04-18] MEDS: NOVOLOG FLEXPEN-HIGH RESISTANCE 2 UNITS SC (17:50)
[2025-04-18] MEDS: REMOVE LIDOCAINE PATCH 1 PATCH REMOVE (20:46)
[2025-04-18 21:38] LABS: Glucose - Point of Care 141 mg/dl (70-99)
[2025-04-18] MEDS: MELATONIN 5 MG PO (21:55)
[2025-04-18] MEDS: OCEAN, SALINE MIST 1 SPRAYS NASAL (21:55)
[2025-04-19] VITALS (11 sets, daily range): BP systolic 126–185; BP diastolic 68–99; PULSE 88; O2SAT 97; BMI 21.5
--- NOTE | 2025-04-19 02:45 | PTCARENOTE ---
Pt AAOx3 able to make needs known. Pt having complaints of nausea over night, prn Zofran given. Pt Foely putting out clear yellow urine. Pt appearing to get some rest over night. Pt respirations even unlabored at this time spo2 96% ra. Assessment
care and vitals as charted. Call tao within reach bed in lowest position.
[2025-04-19] MEDS: VALIUM 2 MG PO ×3 (03:09→20:28)
[2025-04-19 03:46] LABS: Hematocrit 27.0 % (39.0-52.0); Hemoglobin 8.8 g/dL (13.0-18.0); Mean Corp Hgb Conc. 32.6 g/dL (33.0-37.0); Mean Corpuscular Volume 94.4 fL (80.0-94.0); Platelet Count 154 10^3/uL (130-400); Red Cell Dist. Width 16.1 % (11.5-14.5)
[2025-04-19 04:12] LABS: Blood Urea Nitrogen 56 mg/dl (9-20); Calcium 8.7 mg/dl (8.4-10.2); Carbon Dioxide 23 mmol/L (22-30); Chloride 105 mmol/L (98-107); Estimated Creatinine Clearance 46 ml/min; Glucose 104 mg/dl (70-99); Magnesium 1.4 mg/dl (1.6-2.3); Potassium 4.3 mmol/L (3.5-5.1); Sodium 133 mmol/L (135-145); eGFR 51.13
--- NOTE | 2025-04-19 07:46 | W.PN.NEPH.PH ---
Today's Communication / Plan
-
Observe
Assessment/Plan
-
This is a 79-year-old gentleman who follows in our office with Dr. Muhammad after donor renal transplant 2019 from [facility]. His transplant course has been complicated by development of nephrotic range proteinuria as well as recent
cellular rejection December of this year. The episodes treated with Solu-Medrol. His creatinine has risen quickly over time in the last several months. He has gone from a creatinine around 2 now up to 4.4. He was noted to have hydronephrosis of
the transplanted kidney recently on ultrasound as well as CT scan. Esteves catheter was placed by urology a few days ago. His appetite has been poor as of late. Recently he also developed fever and malaise and this has brought him to the emergency
room. He was noted to be febrile in the ER. Blood pressure was stable though lower than his home readings of 132. He was 100 systolic in the ER. Creatinine was 4.7 with elevated lactate level and elevated white count. CT of the abdomen and
pelvis were performed with suspicion for pyelonephritis of the transplant. We are asked to assist in management of his renal issues.
Assessment
Sepsis syndrome, possible pyelonephritis
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
donor renal transplant with FSGS, recent T-cell rejection
Obstructive uropathy, Esteves catheter in place
ELIZABETH..
Anemia
Hyponatremia
lactic acidosis
TAVR 04/06/25
LUE arterial oozing
TARGET TRIMMER-He had been making outpatient arrangements for eventual ESRD and transplant evaluation at [facility]/previously on peritoneal dialysis prior to transfer
Plan
creatinine stable at 1.4 and grossly nonoliguric
s/p OR on 04/15-noted gross hematuria from bleeding infeted transplant kidney s/p rt U stent on 04/15
abx per ID for kleb bacteremia
off CBI and no hematuria
monitor h/h, hb stable 8.8, prn transfusion
Despite all of above he has stable renal function cr better than baseline and non oliguric
last belatacept dose was 04/09 (275mg/weight based-monthly dose), continue pred/MMF
tolerating diet and off TF
-
-
Date of Service: April 19, 2025
CC / HPI / ROS
-
Chief Complaint:
Sepsis
History of Present Illness:
ELIZABETH/Cr better at 1.4-stable
BP stable
Hgb better at 8.8, last PRBC 04/15
no gross hematuria cleared off CBI
Review of Systems:
non oliguric with esteves
off tube feeding,eating well
no cp, no sob at rest
Labs
-
Labs:
WBC 6.3 10^3/uL (4.8-10.8) 04/19/25 03:31
RBC 2.86 10^6/uL (4.70-6.10) L 04/19/25 03:31
Hgb 8.8 g/dL (13.0-18.0) L 04/19/25 03:31
Hct 27.0 % (39.0-52.0) L 04/19/25 03:31
Plt Count 154 10^3/uL (130-400) 04/19/25 03:31
Sodium 133 mmol/L (135-145) L 04/19/25 03:31
Potassium 4.3 mmol/L (3.5-5.1) 04/19/25 03:31
Chloride 105 mmol/L (98-107) 04/19/25 03:31
Carbon Dioxide 23 mmol/L (22-30) 04/19/25 03:31
BUN 56 mg/dl (9-20) H 04/19/25 03:31
Creatinine 1.4 mg/dL (0.7-1.3) H 04/19/25 03:31
eGFR 51.13 04/19/25 03:31
Glucose 104 mg/dl (70-99) H 04/19/25 03:31
Calcium 8.7 mg/dl (8.4-10.2) 04/19/25 03:31
Phosphorus 6.0 mg/dl (2.5-4.5) H 04/10/25 03:02
Unx-T-Knslxuriyqh Pept [id number] pg/ml 04/08/25 16:55
Albumin 2.1 g/dl (3.5-5.0) L 04/11/25 03:29
Physical Exam
-
Vital Signs:
Vital Signs
Temp Pulse Resp BP Pulse Ox
97.9 F 101 24 127/90 97
04/19/25 03:00 04/19/25 05:24 04/19/25 05:24 04/19/25 05:24 04/19/25 05:24
Cardiovascular:: Regular rate and rhythm
Respiratory:: Bilateral: CTA (decreased BS)
Lung Excursion:: Normal
Abdomen:: Nontender and Soft
Bowel Sounds:: Normal
Extremity Edema:: None: Bilateral:
Esteves Catheter: Yes
Other Findings::
left UE echymosis noted-improving edema
--- NOTE | 2025-04-19 08:18 | W.PN.URO.CBU ---
Today's Communication / Plan
-
no new urology input
pt to f/u with his transplant team as an outpatient
Assessment / Plan
-
hx of renal transplant with hydro of transplant kidney
urinary retention
Klebsiella UTI- urosepsis
hematuria -- improved
Diagnosis
-
Date of Service: April 19, 2025
-
Patient Urologic Diagnosis:
hx of renal transplant
urinary retention
hydro of renal transplant
UTI
hematuria
UTI AND HEMATURIA DUE TO OBSTRUCTED TRANSPLANT
s/p cysto/transplant stent placement/fulguration 04/15
Objective
-
Vital Signs
Temp Pulse Resp BP Pulse Ox
97.7 F 101 24 127/90 97
04/19/25 07:59 04/19/25 05:24 04/19/25 05:24 04/19/25 05:24 04/19/25 05:24
Intake and Output
04/18/25 04/19/25 04/20/25
06:59 06:59 06:59
Intake Total 240 / 240 600 / 600
Output Total 4500 / 4500 3000 / 3000
Balance -4260 / -4260 -2400 / -2400
Intake:
Oral fluids 240 / 240 600 / 600
Output:
Urine, Disla 4500 / 4500 3000 / 3000
Laboratory Results
04/19/25 03:31
04/19/25 03:31
Physical Exam
-
General - well developed, well nourished, no acute distress
Chest - clear bilaterally
Abdomen - soft, non-tender, positive bowel sounds, no CVAT, no incisional pain or distention
Genitalia - normal
Rectal - normal
Skin - warm & dry with no rash
Neuro - AOx3, no motor deficits
Extremities - no clubbing, no cyanosis, no edema
Incision - clean, dry
Dressing - clean, dry, intact
[2025-04-19] MEDS: NOVOLOG FLEXPEN-HIGH RESISTANCE SC (08:30)
[2025-04-19 08:35] LABS: Glucose - Point of Care 113 mg/dl (70-99)
[2025-04-19] MEDS: NOVOLOG FLEXPEN 3 UNITS SC ×3 (10:03→18:11)
[2025-04-19] MEDS: CELLCEPT 1000 MG PO ×2 (10:04→22:07)
[2025-04-19] MEDS: SANTYL OINTMENT 1 APPLIC TOPICAL (10:04)
[2025-04-19] MEDS: LOW STRENGTH ASPIRIN 81 MG PO (10:05)
[2025-04-19] MEDS: SENOKOT-S 1 TABLET PO (10:05)
[2025-04-19] MEDS: LOPRESSOR 25 MG PO ×2 (10:05→20:18)
[2025-04-19] MEDS: NORVASC 5 MG PO (10:05)
[2025-04-19] MEDS: DESENEX/MITRAZOL/ZEASORB 1 APPLIC TOPICAL ×2 (10:06→20:19)
[2025-04-19] MEDS: DELTASONE 2.5 MG PO ×2 (10:06→20:18)
[2025-04-19] MEDS: PROTONIX IV 40 MG IV (10:06)
[2025-04-19] MEDS: NSS (PRESERVATIVE FREE) 10 ML IV (10:06)
[2025-04-19] MEDS: OCEAN, SALINE MIST 1 SPRAYS NASAL ×2 (10:07→22:10)
[2025-04-19] MEDS: HYDROPHOR 1 APPLIC TOPICAL (10:07)
[2025-04-19] MEDS: MIRALAX 17 GRAMS PO (10:07)
[2025-04-19] MEDS: LIDOCAINE 4% PATCH 1 PATCH TOPICAL (10:07)
--- NOTE | 2025-04-19 10:11 | W.PN.HOSP.TC ---
Today's Communication/Plan
-
Continue antibiotics per ID
Resume anticoagulation if okay from urology standpoint
Transfer to telemetry
PT OT
Assessment / Plan
Assessment / Plan
Assessment/Plan
79-year-old with history of end-stage renal disease status post kidney transplant 2019 on antirejection medications, hypertension, hyperlipidemia, atrial fibrillation on Eliquis, urinary retention status post catheter placement several days prior to
admission presenting to the emergency department with fever and chills as well as weakness, admitted for sepsis secondary to transplant pyelonephritis, acute renal failure of transplanted kidney with development of acute hypoxic respiratory failure,
inability to tolerate HD secondary to severe and now s/p TAVR 04/06.

Left Upper Extremity Hematoma
Likely contained pseudoaneurysm -- status post left mid forearm A-line placement, then forearm swelling, then found to have likely contained pseudoaneurysm based on imaging
-swelling started after removaL PIV; arterial line in setting of thrombocytopenia/AC
-arterial US/angiogram 04/09/25 with active extravasation in left forearm with associated hematoma
-appreciate Vascular surgery input - based on comorbidities/skin tissue integrity trying to avoid surgical intervention - continue karl bandage wrap and compression
-Repeat arterial duplex 04/12/25 -- with no evidence of active extravasation or pseudoaneurysm
-Continue karl wrap for gentle compression at the LUE -- edema has improved
-Continue daily or PRN dressing change for forearm skin tear, wound care nursing consulted
Acute blood loss anemia secondary to multiple sources: LUE hematoma, melena (see below), hematuria (see below), epistaxis
(see below - prior hospitalization with other bleeding episodes, patient has received many PRBC this admission)
-So far, patient has received 10 units of red blood cells this hospitalization (10th one was given in OR on 04/15/25)
-Follow CBC
Thrombocytopenia
-HIT panel testing was negative
-appreciate Heme eval
-s/p 1 unit PLT (on 04/09/25) in setting of bleeding, and on 04/15/25, received per urologist 2 more units of platelets perioperatively
-Appreciate hematology: last note from hematology on 04/13/25 suggested holding anticoagulation for now given hematuria, thrombocytopenia and absence of lower extremity clot.
Severe aortic stenosis with cardiogenic shock status post TAVR on 04/06
Small left groin hematoma related to previous transcatheter aortic valve replacement on CT Abdomen Pelvis 04/15/25
- RHC 03/30 indicated aortic stenosis as source of low cardiac output/cardiogenic shock.
- s/p cardiac cath 04/02/25 - non-obstructive CAD
- Decision made for more urgent TAVR in hopes of tolerating HD (see below)
- s/p TAVR CT work-up with incidental finding of PE (see below)
- Has been getting Aspirin 81 mg daily -- last dose 04/13/25 morning -- Aspirin was previously held given that patient went to OR with urology on 04/15/25
- Resumed Aspirin on 04/17/25 -- so far tolerating well
- Appreciate CTS, Pick Up Worker, Cardiology
- Dr. Yuri Larios (via [employer] communication on 04/12/25) mentioned that holding anticoagulation right now (see below) is reasonable; in the termite technician, patient should be on ASA for the TAVR if not on
anticoagulation (to prevent leaflet thrombosis). If and when patient goes on any anticoagulation, then no Aspirin needed. Per Dr. Larios, if not on anticoagulation and having active bleeding, would hold
Aspirin. Once no longer having active bleeding, would resume Aspirin, but only if not on anticoagulation. If on anticoagulation, should not get Aspirin.
History of renal transplant in 2019 - donor renal transplant 2019 from [facility]
Acute on chronic renal failure requiring hemodialysis
-Recent Treatment for rejection in December 2024
-Losartan on hold
-Cellcept resumed 03/30/25 nephrology -- continue
-On steroids - Prednisone 2.5 mg BID -- continue
-Belatacept ordered per renal for 04/09/25 -- last belatacept dose was 04/09 (275mg/weight based)
-Status post temporary hemodialysis catheter -- this was removed as of 04/16/25 as not needing it and also to remove another potential source of infection
-Required hemodialysis on admission, received multiple sessions, but due to poor tolerance of HD, 03/29/25, transitioned to CRRT. Line clotted, off CRRT since.
-HD attempt on 04/01/25 resulted in tachycardia and tachypnea during HD, Severe aortic stenosis likely limiting factor for hemodynamic instability during HD
-*patient is now s/p TAVR. Renal function is stable/shown daily improvement and patient is non-oliguric therefore HD not needed to be reattempted. Post contrast again on 04/09 - BUN trended down, creatinine stable. Appreciate Renal eval.
-I communicated (via [employer], on 04/12/25) with patient's outside sales account manager Dr. Muhammad, who agreed that patient would be best served at his transplant center, [facility]. I communicated (via [employer], on 04/12/25) with urologist
Hernán: urologically he has concerns about a hydronephrotic/ infected transplant- that is aside from the hematuria issue -- on 04/13/25, I discussed case together with Dr. Gross and urologist Dr. Jim over the phone -- Dr. Gross mentioned that
given patient's renal function is currently stable, Transplant doctors will not to anything different at [place] at this time, he recommended further work-up with CT imaging and further evaluation with urology, and no transfer right now to [place] -- further work-up and eval and urologic stent was done here, and patient is now improving
Hydronephrosis of transplanted kidney
- Obstructive uropathy of transplant kidney, Disla placed 03/15/25
- Maintain Disla catheter
- Patient considering TURP
- Despite addressing obstruction with Disla Catheter and addressing urinary retention, patient's hydronephrosis had not improved
- Repeat CT Abdomen Pelvis without intravenous or oral contrast performed on 04/15/25: the CT showed unchanged severe hydronephrosis of transplant kidney, gas in the transplant ureter/collecting
system, possible IV contrast from prior procedure versus hemorrhage
- Patient went to OR with urology, as below, on 04/15/25
Acute hypoxic respiratory failure requiring intubation 03/21-03/25
Bilateral small pleural effusions and as seen on previous imaging, pulmonary fibrosis
-Remains on room air
-Likely multifactorial secondary to pulmonary edema versus pneumonia versus interstitial lung disease
-s/p empiric high dose steroids for possible ILD, now on home prednisone
-with improvement in CXR post fluid removal with HD, may have been related to fluid; s/p RHC with PCWP 8 (post fluid removal)
-s/p antibiotic course for possible pneumonia
-Pulmonary has signed off as 04/12/25
Septic shock associated with acute kidney injury, lactic acidosis secondary to Klebsiella bacteremia likely secondary to urinary tract infection
Transplant kidney pyelonephritis with Klebsiella and E. faecalis
Immunosuppressed
-s/p 14 days IV antibiotics (completed 04/02/25) -- but then antibiotics had to be resumed again on 04/14/25 (please see below)
-s/p pressor administration, now off
New fever on 04/14/25 evening, improving
Leukocytosis, resolved
Klebsiella pneumoniae bacteremia x 3 sets from 04/14/25 evening
- Repeat blood cx's with no growth to date
- 04/15 s/p OR cysto, successful ureter stent placement. Per Urology + bleeding and pus from transplant kidney
- Previously since 04/14 received Vanco and Cefepime
- Now switched to Ceftriaxone; appreciate ID
- Urine culture grew Klebsiella pneumoniae
- Since patient is no longer on hemodialysis, okay to stop RIJ temp HD cath -- it was removed a few days ago
- Trend temps/wbc.
Pneumomediastinum
-Decreased pneumomediastinum on repeat CT Abdomen Pelvis 04/15/25
Pulmonary embolus within the posterior left lower lobe segmental pulmonary artery on CT Chest on 04/04/25
Short-segment left axillary vein thrombus
-Seen on CT Chest done in preparation for aortic valve surgery
-Pulmonary embolization from temporary dialysis line (which had previously clotted)??
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
-I communicated (via [employer], on 04/12/25) with sap technical developer Dr. Manjarrez who recommended against IVC filter as the patient has no lower extremity clot, and she also said not to maintain anticoagulation solely for short-segment axillary
vein clot; she recommended hold anticoagulation
-Additionally, the note from hematology on 04/13/25 suggested holding anticoagulation for now given hematuria, thrombocytopenia and absence of lower extremity clot.
-Cardiology (Dr. Yuri Larios) mentioned via [employer] communication on 04/12/25 that if those blood clots and patient's atrial fibrillation are the only indications for anticoagulation, would favor a lower intensity strategy with warfarin as
suggested by Dr. Tilley (slabbing machine operator who saw patient on 04/12/25) -- after slabbing machine operator mentioned their recommendations on [employer] communication, Dr. Manjarrez recommended against anticoagulation given no lower extremity clot -- so no
anticoagulation for now, but could trial in the near future perhaps since patient is now improving
-Later in the [employer] communication, Dr. Larios mentioned that holding anticoagulation is reasonable at this time
-Has been getting Aspirin 81 mg daily -- was previously held for OR with urology on 04/15/25
-Resumed Aspirin 81 mg daily starting on 04/17/25 -- so far tolerating well
Nonocclusive thrombus within the right cephalic vein within the distal aspect of the upper arm
Occlusive thrombus within the cephalic vein in the proximal forearm
-Conservative management for superficial venous thrombosis
Hyperglycemia
-Glucose values remain well-controlled
-Continue sliding scale coverage and NovoLog with Accu-Cheks
Bleeding around HD catheter, 04/04/25
-Area cleaned, had bleeding noted from one of the stitches; stitch removed, after injecting lidocaine new stitch placed at a different location. Hemostasis achieved. Appreciate manager logistic
Acute blood loss anemia with baseline chronic macrocytic anemia
Melena on 04/11-04/12
Epistaxis
Hematuria developed on 04/11/25-04/12/25
-Status post total of 10 units of PRBCs so far (10th unit was given perioperatively on 04/15/25)
-GI saw patient on 04/12/25, no endoscopy given current patient's current condition, GI has signed off
-Continue IV PPI BID
-I communicated (via [employer], on 04/12/25) with sap technical developer Dr. Manjarrez who recommended against IVC filter as he patient no lower extremity clot, and she also said not to maintain
anticoagulation solely for short-segment axillary vein clot; hold anticoagulation; she said patient seems to be at the point of medical futility.
-On 04/15/25, Dr. Jim took patient to the OR and found that patient is bleeding from the transplant, and pus was also present, he was able to place a urinary tract stent on 04/15/25 and he fulgurated small areas in the prostate
-Stopped CBI as of 04/17/25 -- urine remains clear, free of blood as of 04/18/25
Constipation/Large Volume Stool in Abdominal X-Ray 04/15/25
-Already on Miralax
-Monitor bowel movements
Epistaxis
-Previously evaluated by ENT, status post left NC packing. now removed on 03/26/25. Appears deviated septum per ENT.
-Left nostril had Clot
-s/p topical bacitracin course
-gentle nasal saline sprays in b/l nasal cavities 1-2 sprays each nostril 3-4 times daily per ENT
-recall ENT if rebleeding occurs
Left Eye Subconjunctival Hemorrhage
-Developed overnight 04/03/25-04/04/25
-Continue to monitor
Toxic metabolic encephalopathy likely secondary to shock versus ICU delirium versus hypoxemia versus uremia
-Resolved
Atrial fibrillation with rapid ventricular response
Permanent Atrial Fibrillation
Atrial Flutter
- No anticoagulation at this time given bleeding/anemia/thrombocytopenia
- Aspirin was previously on hold, then resumed as above
- Continue Metoprolol.
Dilated gallbladder on CT Abdomen Pelvis 04/15/25
Hypertension
-Home Amlodipine 5 mg daily resumed on 04/13/25
-Holding Losartan for now given tenuous kidney situation with urinary bleeding
Multifactorial Anemia
-Iron studies noted from 03/26/25.
Sacrum Stage 2 Pressure Injury
-Wound care
Nutrition
-Patient now has a good appetite and is tolerating a diet
-Continue oral diet
-Stopped tube feeds and Dobhoff tube on 04/17/25
Ex-Smoker
DVT Prophylaxis: SCDs only given bleeding.
Diet: Tube feeds -- Per discussion with Speech and Dietitian on 04/14/25: trial IDDSI 6 (soft/bite sized) to see if this requires less energy and increases PO intake slightly increase tube feeds to be Nepro 1.8 continuous. Rate 25ml/hr. flush 25ml.
Code status - Full Code
Progress on Transferring Patient to a Tertiary Care Facility
On 04/12/25, I called patient's Beata and patient's daughter Yolanda, and I answered all of their questions and concerns to satisfaction. I contacted Dr. Muhammad (patient's outside sales account manager) per their request.
On 04/12/25, I spoke with hospitalist Dr. Gross at [facility], and he was thinking that since patient's kidney function is stable (creatinine stable, without any dialysis for more than 1 week), patient does not need to be transferred
right now. He recommended maybe a CT Abd/Pelvis to see whether the bleeding could be coming from his transplanted kidney. He also said that the hydronephrosis based on [facility] records is chronic. I conveyed this message to urologist Dr. Jim
and patient's outside sales account manager Dr. Muhammad, who still recommended transfer given that patient's transplanted kidney is still with hydronephrosis, and possibly still infected despite antibiotics and Disla Catheter. I then called [facility] transfer
center and spoke with [facility] Dr. Medina at 1:19 pm, and he mentioned that there is no transplant doctor services at [facility]; therefore I then spoke with transplant physician Dr. Alex Osborn (at [facility]) around 1:51 PM, and he recommended that since patient got his transplant at [facility], he should go there. I conveyed this message to the other doctors involved in patient's care, including but not limited to "Alla"Hernán (urologist) and Dr. Muhammad (patient's outpatient outside sales account manager). Dr. Muhammad spoke with patient's and daughter, and mentioned that potential transfer was not just about a chronically, hydronephrotic transplanted kidney, but a transplant
recipient with acute illness, requiring a higher level of care. Dr. Muhammad then spoke with the transplant outside sales account manager (Dr. Crescencio Tran) who wondered what can they do there (at [facility]) that we cannot do here -- Dr. Crescencio Tran told Dr. Muhammad
that he will speak to the transfer team, and let Dr. Muhammad know. Family also said that they spoke to Lavon at the transplant team at [facility]; they spoke with Dr. Valencia and he supposedly said he will accept patient if family initiated
transfer.
On 04/13/25, I discussed case together with [facility] Hospitalist Dr. Gross and Urologist Dr. Jim over the phone (all 3 of us in the same phone conversation -- Dr. Gross mentioned that given patient's renal function is currently
stable, transplant doctors will not to anything different at [place] at this time, he recommended further work-up with CT imaging and further evaluation with urology, and no transfer right now to [facility]. Transfer cancelled for now.
On 04/13/25, I spoke over the phone with patient's daughter Yolanda, and I answered all of their questions and concerns to satisfaction, and I let patient's and Yolanda both know that we will continue to monitor patient here at [place].
On 04/18/25, I spoke over the phone with patient's daughter Yolanda, and I answered all of their questions and concerns to satisfaction.
Anemia, venous thromboembolism, post OR status after bleeding stent was found, bacteremia and complicated UTI is a high risk encounter
Anticipated Discharge: > 48 hours
Subjective/Interval History
-
Date of Service: April 19, 2025
Feeling improved every day.
Tolerating diet.
Denies shortness of breath or chest pain.
No fever or chills.
Objective Data
-
Labs:
Laboratory Results
04/19/25
03:31
WBC 6.3
Hgb 8.8 L
Hct 27.0 L
Plt Count 154
Sodium 133 L
Potassium 4.3
Chloride 105
Carbon Dioxide 23
BUN 56 H
Creatinine 1.4 H
Glucose 104 H
Calcium 8.7
Vital Signs:
Vital Signs
Temp Pulse Resp BP Pulse Ox
97.7 F 99 23 164/99 96
04/19/25 07:59 04/19/25 10:05 04/19/25 08:00 04/19/25 10:05 04/19/25 08:00
I&O
04/18/25 04/19/25 04/20/25
06:59 06:59 06:59
Intake Total 240 / 240 600 / 600
Output Total 4500 / 4500 3000 / 3000
Balance -4260 / -4260 -2400 / -2400
Physical Exam
-
General: Comfortable
Respiratory: Crackles (Bibasilar left more than right) and Non Labored Respirations; Negative Accessory Resp Muscle Use
Cardiac: Regular Rhythm, S1/S2 and Tachycardic
GI: Soft and Nontender
Genito-urinary: Clear Urine and Disla
Musculoskeletal: Other (Left arm mild edematous and bruising from recent subcutaneous hemorrhage noted. Radial pulse present. Denies any pain or tingling in the left arm.)
Neuro: AO x 3
Psych: Calm
Data Reviewed
-
Labs: Labs Reviewed by me
--- NOTE | 2025-04-19 10:37 | W.PN.ID1 ---
Date of Service
Date of Service: April 19, 2025
Today's Communication
Continue ceftriaxone.
Assessment / Plan
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
# Obstructive uropathy of transplant kidney, esteves placed since 03/15
# s/p Recent shock transplant kidney pyelonephritis with Klebsiella and E. faecalis, Klebsiella bacteremia s/p 14d abx (against both org) completed 04/02/25
# s/p cardiogenic shock, respiratory failure intubated 03/21; extubated 03/25/25
# chronic interstitial lung disease
# Severe aortic stenosis s/p TAVR 04/06/25
# ELIZABETH on CKD requiring renal replacement therapy (03/20 - 04/01). ELIZABETH improving
# PE (04/04/25), LUE DVT (04/08/25), RUE DVT (04/12/25)
# LUE midforearm hematoma/bleeding from IV catheter attempt (04/09/25). No pseudoaneurysm .
# Gross hematuria , onset 04/11.
04/12/25 started CBI
# New fever 04/14, resolved
# Leukocytosis, resolved
# Klebsiella pneumoniae bacteremia x 3 sets
# Complicated transplant kidney UTI/obstructive uropathy
- Repeat blood cx's 04/16 and 04/17 neg to date
- 04/15 s/p OR cysto, successful ureter stent placement. Per Urology + bleeding and pus from transplant kidney
OR urine cx - also K pneumoniae with different sensitivities - intermediate to cefazolin, sensitive to ceftriaxone
- Continue ceftriaxone 2 gm IV q24 (d5)
- ELIZABETH improving.
Chief Complaint
-: UTI and Bacteremia
Subjective / Review of Systems
Feels better.
Vital Signs / Physical Exam
Vital Signs
Vital Signs
Temp Pulse Resp BP Pulse Ox
97.7 F 99 23 164/99 96
04/19/25 07:59 04/19/25 10:05 04/19/25 08:00 04/19/25 10:05 04/19/25 08:00
Physical Exam
Constitutional: No Acute Distress and Comfortable
Eyes: Sclera Anicteric
Cardiovascular: Irregular Rate and S1/S2
Pulmonary: Coarse
Gastrointestinal: Soft, Non Tender and Non Distended
Genito-Urinary: Esteves, Clear Urine and Other (Transplant kidney nontender)
Extremities: Negative Edema
Neurological: AO x 3
Objective Data
Lab Data
Lab Results
04/19/25 03:31
04/19/25 03:31
ESR 87 mm/hour (0-20) H 04/11/25 03:29
PT 14.7 Sec (11.4-14.6) H 04/16/25 04:57
INR 1.17 04/16/25 04:57
APTT 28.9 Sec (23.4-35.0) 04/16/25 04:57
Estimated Creat Clear 46 ml/min 04/19/25 03:31
Lactic Acid 2.0 mmol/L (0.7-2.0) 04/14/25 20:51
Total Bilirubin 0.8 mg/dl (0.2-1.3) 04/11/25 03:29
AST 40 U/L (17-59) 04/11/25 03:29
ALT 32 U/L (0-50) 04/11/25 03:29
Alkaline Phosphatase 85 U/L (38-126) 04/11/25 03:29
C-Reactive Protein Cancelled 04/08/25 16:00
Most recent labs reviewed.
Micro Results:
04/17/25 06:15 Blood Culture - Preliminary
Blood/Venous No Growth in 48 hours- Final report to follow
04/16/25 04:57 Blood Culture - Preliminary
Blood/Venous No Growth in 72 hours- Final report to follow
04/15/25 10:17 Urine Culture - Final
Urine Klebsiella pneumoniae
Klebsiella pneumoniae#2
04/14/25 20:01 Blood Culture - Preliminary
Blood/Venous Klebsiella pneumoniae
Gram Stain - Preliminary
04/14/25 20:50 Blood Culture - Final
Blood/Venous Klebsiella pneumoniae
Gram Stain - Final
04/14/25 20:01 Blood Culture - Final
Blood/Venous Klebsiella pneumoniae
Gram Stain - Final
04/14/25 20:01 Influenza Types A & B (NOLVIA) - Final
Nasal Swab Negative for Influenza A & B, NAAT
Negative results must be combined with clinical observations
and patient history.
Nucleic Acid Amplification test (NAAT)performed on the
[employer] platform.
04/12/25 08:38 Urine Culture - Final
Urine NO GROWTH
03/20/25 05:07 Blood Culture - Final
Blood/Venous No Growth - Final Report
03/20/25 05:34 Blood Culture - Final
Blood/Venous No Growth - Final Report
03/18/25 18:13 Urine Culture - Final
Urine Klebsiella pneumoniae
Enterococcus faecalis
03/18/25 17:02 Blood Culture - Final
Blood/Venous Klebsiella pneumoniae
Gram Stain - Final
03/18/25 17:01 Blood Culture - Final
Blood/Venous Klebsiella pneumoniae
Gram Stain - Final
03/18/25 23:17 MRSA Screen - Final
Nose No Methicillin Resistant Staphylococcus aureus isolated.
03/18/25 17:03 Influenza Types A & B (NOLVIA) - Final
Nasal Swab Negative for Influenza A & B, NAAT
Negative results must be combined with clinical observations
and patient history.
Nucleic Acid Amplification test (NAAT)performed on the
[employer] platform.
04/15/25 CT a/p:
1. Severe hydronephrosis of transplant kidney, unchanged.
2. Very small volume of gas within the transplant renal collecting system, decreased as compared with the previous exam. As above, there is gas in the transplant ureter including along the anastomosis with the urinary bladder, therefore both
infection and gas related to Esteves catheter remain considerations.
3. Fluid fluid level within the renal transplant collecting system. This could be related to excretion of contrast from previous procedure. Hemorrhage is also possible.
4. Bilateral small pleural effusions. Pulmonary fibrosis as seen previously. Decreased pneumomediastinum.
5. Small left groin hematoma related to previous transcatheter aortic valve replacement.
6. Dilated gallbladder. No abnormal wall thickening or pericholecystic fluid identified.
04/14/25 CXR: Stable diffuse interstitial prominence likely reflects underlying chronic interstitial lung disease
04/12/25 LUE arterial study: Patent left radial artery with no evidence of pseudoaneurysm. Previously visualized area of abnormality in the mid radial artery is not seen on today's examination
04/09/25 LUE Angio: Small foci of extravasated contrast material seen within the soft tissues at the level of the mid forearm adjacent to the radial artery. Consistent with mild active hemorrhage. Generalized edema. A focal soft tissue collection is
difficult to identify with certainty.
03/31/25 CXR: Slightly improved pulmonary interstitial markings suggesting resolving interstitial edema. Pneumomediastinum without significant change.
03/28/[address]: Mild pneumomediastinum, with superior extension into the fat at the base of the neck, as well as at the posterior and lateral aspect of the right mid to upper thorax. Diffuse bilateral interstitial and groundglass opacity. This
could be related to fluid associated with interstitial and pulmonary edema related to volume overload or congestive heart failure. Alternatively, findings may be infectious in nature related to atypical or viral pneumonitis. No focal dense
consolidation.
03/20/25 CXR: Grossly stable severe diffuse bilateral interstitial and airspace disease which may reflect combination of pulmonary edema and pneumonia. Cannot rule out component of underlying chronic interstitial lung disease.
03/19/25 CXR: Progressive parenchymal disease process, as described. Differential includes progressive congestive heart failure with pulmonary edema versus diffuse bilateral pneumonia, right greater than left.
03/18/25 CT a/p: Severe acute edema and inflammation around the right lower quadrant renal transplant which is new from 12/17/2024. Severe hydronephrosis of the right intrarenal collecting system and right renal pelvis which has increased. ACUTE
PYELONEPHRITIS of the RIGHT LOWER QUADRANT RENAL TRANSPLANT is considered most likely. Acute infarction of the renal transplant is a less likely diagnostic possibility. Severe diffuse urinary bladder wall thickening with surrounding perivesical
inflammation which appears new from 12/17/2024 suggesting SEVERE ACUTE CYSTITIS. Esteves catheter in the urinary bladder. Mildly enlarged prostate gland.
--- NOTE | 2025-04-19 11:02 | W.PN.ONC2 ---
Today's Communication / Plan
-
.
Impression
Impression
Thrombocytopenia, multifactorial including infection -HIT negative -platelets now normal -received 2U SDP during hospitalization, last 04/15
ESRD s/p failed transplant 2018, on MMF, prednisone
severe b/l hydronephrosis
Atrial fibrillation, AC on hold 06/14 ABLA
Urosepsis complicated by Klebsiella bacteremia, 04/14 Bcx +for Klebsiella
Severe complicated by cardiogenic shock s/p TAVR 04/06, ASA held 04/13-04/17, resumed 04/18
New small PE on 04/04 CT chest, LUE DVT 04/08, RUE DVT 04/13
Acute blood loss anemia, hematuria, LUE hematoma, melena, epistaxis, & Left groin hematoma - s/p 10U PRBC since 03/19, last 04/15
Constipation
chronic interstitial lung disease
Plan
Plan
Consider DVT ppx vs therapeutic anticoagulation for VTE if deemed safe from a bleeding perspective discussed with patient and family at bedside
Subjective/Objective
Subjective
afebrile, no hypoxia or hypotension
Vital Signs:
Vital Signs
Temp Pulse Resp BP Pulse Ox
97.7 F 99 23 164/99 96
04/19/25 07:59 04/19/25 10:05 04/19/25 08:00 04/19/25 10:05 04/19/25 08:00
Lab Results:
Laboratory Data
WBC 6.3 10^3/uL (4.8-10.8) 04/19/25 03:31
Hgb 8.8 g/dL (13.0-18.0) L 04/19/25 03:31
Plt Count 154 10^3/uL (130-400) 04/19/25 03:31
PT 14.7 Sec (11.4-14.6) H 04/16/25 04:57
INR 1.17 04/16/25 04:57
APTT 28.9 Sec (23.4-35.0) 04/16/25 04:57
eGFR 51.13 04/19/25 03:31
[2025-04-19 12:52] LABS: Glucose - Point of Care 186 mg/dl (70-99)
[2025-04-19] MEDS: STERILE WATER FOR INJECTION 20 ML IV (12:53)
[2025-04-19] MEDS: ROCEPHIN 2000 MG IV (12:53)
[2025-04-19] MEDS: NOVOLOG FLEXPEN-HIGH RESISTANCE 2 UNITS SC ×2 (14:21→18:12)
[2025-04-19] MEDS: MAGNESIUM SULFATE 50 IV (14:22)
[2025-04-19] MEDS: TYLENOL 650 MG PO ×2 (14:26→20:28)
[2025-04-19 17:57] LABS: Glucose - Point of Care 175 mg/dl (70-99)
[2025-04-19] MEDS: OCEAN, SALINE MIST 2 SPRAYS NASAL (18:11)
--- NOTE | 2025-04-19 18:12 | CM ---
F/U: NOHELIA Cerda called daughter Cely to ask if she review list with mom, she did, Mom/ wants private room because he is on antirejection medication (Cely knows that they will likely need to bring this to wherever he goes), and that is
concerned about ensuring they are paying attention to his care. Patient not on HD anymore. PT/OT recommended Acute today so discuss this with her, which family is very interested in [facility]. So, where it was left off was that referral to [facility], to [facility], and they will get 2 mre choices. PLAN: SNF or Acute when ready.
--- NOTE | 2025-04-19 19:29 | PTCARENOTE ---
Pt received as transfer from IMU. AAOx3. Afib on tele, HR 80s-90s. SpO2 98% on room air. LUE ecchymotic from fingers to mid upper arm. L radial pulse palpable. Pt endorses full sensation to LUE. Disla intact, draining yellow urine. Sacral dressing
CDI. Pt resting in bed, call tao in reach.
[2025-04-19] MEDS: SENOKOT-S PO ×2 (20:18→20:31)
[2025-04-19] MEDS: PROTONIX 40 MG PO (20:18)
[2025-04-19 21:32] LABS: Glucose - Point of Care 171 mg/dl (70-99)
[2025-04-19] MEDS: REMOVE LIDOCAINE PATCH 1 PATCH REMOVE (22:07)
[2025-04-19] MEDS: MELATONIN 5 MG PO (22:08)
[2025-04-20] VITALS (7 sets, daily range): BP systolic 127–174; BP diastolic 71–97
[2025-04-20] MEDS: TYLENOL 650 MG PO ×2 (02:58→20:20)
[2025-04-20] MEDS: LOPRESSOR 25 MG PO ×2 (05:37→20:17)
[2025-04-20 07:54] LABS: Glucose - Point of Care 124 mg/dl (70-99)
[2025-04-20 08:46] LABS: Hematocrit 30.8 % (39.0-52.0); Hemoglobin 9.9 g/dL (13.0-18.0); Mean Corp Hgb Conc. 32.1 g/dL (33.0-37.0); Mean Corpuscular Volume 96.6 fL (80.0-94.0); Platelet Count 185 10^3/uL (130-400); Red Cell Dist. Width 15.9 % (11.5-14.5)
[2025-04-20] MEDS: NOVOLOG FLEXPEN-HIGH RESISTANCE SC (08:52)
[2025-04-20] MEDS: PROTONIX 40 MG PO ×2 (08:57→20:18)
[2025-04-20] MEDS: LOW STRENGTH ASPIRIN 81 MG PO (08:57)
[2025-04-20] MEDS: DELTASONE 2.5 MG PO ×2 (08:57→20:18)
[2025-04-20] MEDS: SENOKOT-S 1 TABLET PO ×2 (08:57→20:18)
[2025-04-20] MEDS: LIDOCAINE 4% PATCH 1 PATCH TOPICAL (08:57)
[2025-04-20] MEDS: MIRALAX 17 GRAMS PO (08:57)
[2025-04-20] MEDS: CELLCEPT 1000 MG PO ×2 (08:58→22:10)
[2025-04-20] MEDS: NORVASC 5 MG PO (09:03)
[2025-04-20] MEDS: DESENEX/MITRAZOL/ZEASORB 1 APPLIC TOPICAL ×2 (09:04→20:18)
[2025-04-20] MEDS: OCEAN, SALINE MIST 50 SPRAYS NASAL ×2 (09:05→15:55)
[2025-04-20] MEDS: SANTYL OINTMENT 1 APPLIC TOPICAL (09:06)
[2025-04-20] MEDS: HYDROPHOR 1 APPLIC TOPICAL (09:09)
[2025-04-20] MEDS: NOVOLOG FLEXPEN 3 UNITS SC ×3 (09:18→17:50)
--- NOTE | 2025-04-20 09:30 | W.PN.URO.CBU ---
Today's Communication / Plan
-
continue esteves and stent
Assessment / Plan
-
hx of renal transplant with hydro of transplant kidney
urinary retention
Klebsiella UTI- urosepsis
hematuria -- resolved
hydro of transplant- s/p stent placement
pt dong better
on asa- platelets recovering- if urine clear tomorrow could restart eliquis and observe
pt will be discharged with esteves and stent and will need to f/u with transplant center to address hydro and retention
Diagnosis
-
Date of Service: April 20, 2025
-
Patient Urologic Diagnosis:
hx of renal transplant
urinary retention
hydro of renal transplant
UTI
hematuria
UTI AND HEMATURIA DUE TO OBSTRUCTED TRANSPLANT
s/p cysto/transplant stent placement/fulguration 04/15
Subjective
-
pt out of IMU
lokks better
esteves in place- urine clear
Objective
-
Vital Signs
Temp Pulse Resp BP Pulse Ox
97.8 F 88 20 159/72 99
04/20/25 07:20 04/20/25 07:20 04/20/25 07:20 04/20/25 09:03 04/20/25 07:20
Intake and Output
04/19/25 04/20/25 04/21/25
06:59 06:59 06:59
Intake Total 600 / 600 480 / 480
Output Total 3000 / 3000 1500 / 1500
Balance -2400 / -2400 -1020 / -1020
Intake:
Oral fluids 600 / 600 480 / 480
Output:
Urine, Esteves 3000 / 3000 1500 / 1500
Laboratory Results
04/20/25 08:22
Physical Exam
-
General - no acute distress
Abdomen - soft, non-tender
Genitalia - esteves in place
[2025-04-20 09:55] LABS: Blood Urea Nitrogen 52 mg/dl (9-20); Calcium 9.3 mg/dl (8.4-10.2); Carbon Dioxide 26 mmol/L (22-30); Chloride 105 mmol/L (98-107); Estimated Creatinine Clearance 43 ml/min; Glucose 99 mg/dl (70-99); Potassium 4.2 mmol/L (3.5-5.1); Sodium 136 mmol/L (135-145); eGFR 51.13
--- NOTE | 2025-04-20 10:55 | W.PN.NEPH.PH ---
Today's Communication / Plan
-
observe
Assessment/Plan
-
This is a 79-year-old gentleman who follows in our office with Dr. Muhammad after donor renal transplant 2019 from [facility]. His transplant course has been complicated by development of nephrotic range proteinuria as well as recent
cellular rejection December of this year. The episodes treated with Solu-Medrol. His creatinine has risen quickly over time in the last several months. He has gone from a creatinine around 2 now up to 4.4. He was noted to have hydronephrosis of
the transplanted kidney recently on ultrasound as well as CT scan. Esteves catheter was placed by urology a few days ago. His appetite has been poor as of late. Recently he also developed fever and malaise and this has brought him to the emergency
room. He was noted to be febrile in the ER. Blood pressure was stable though lower than his home readings of 132. He was 100 systolic in the ER. Creatinine was 4.7 with elevated lactate level and elevated white count. CT of the abdomen and
pelvis were performed with suspicion for pyelonephritis of the transplant. We are asked to assist in management of his renal issues.
Assessment
Sepsis syndrome, possible pyelonephritis
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
donor renal transplant with FSGS, recent T-cell rejection
Obstructive uropathy, Esteves catheter in place
ELIZABETH..
Anemia
Hyponatremia
lactic acidosis
TAVR 04/06/25
LUE arterial oozing
[employer]-He had been making outpatient arrangements for eventual ESRD and transplant evaluation at [place]/previously on peritoneal dialysis prior to transfer
Plan
creatinine stable at 1.4 and grossly nonoliguric
s/p OR on 04/15-noted gross hematuria from bleeding infeted transplant kidney s/p rt U stent on 04/15
abx per ID for kleb bacteremia
off CBI and no hematuria
monitor h/h, hb stable 8.8, prn transfusion
Despite all of above he has stable renal function cr better than baseline and non oliguric
last belatacept dose was 04/09 (275mg/weight based-monthly dose), continue pred/MMF
tolerating diet and off TF
-
-
Date of Service: April 20, 2025
CC / HPI / ROS
-
Chief Complaint:
Sepsis
History of Present Illness:
ELIZABETH/Cr better at 1.4-stable
BP stable
Hgb better at 8.8, last PRBC 04/15
no gross hematuria cleared off CBI
Review of Systems:
non oliguric with esteves
off tube feeding,eating well
no cp, no sob at rest
Labs
-
Labs:
WBC 7.0 10^3/uL (4.8-10.8) 04/20/25 08:22
RBC 3.19 10^6/uL (4.70-6.10) L 04/20/25 08:22
Hgb 9.9 g/dL (13.0-18.0) L 04/20/25 08:22
Hct 30.8 % (39.0-52.0) L 04/20/25 08:22
Plt Count 185 10^3/uL (130-400) D 04/20/25 08:22
Sodium 136 mmol/L (135-145) 04/20/25 08:22
Potassium 4.2 mmol/L (3.5-5.1) 04/20/25 08:22
Chloride 105 mmol/L (98-107) 04/20/25 08:22
Carbon Dioxide 26 mmol/L (22-30) 04/20/25 08:22
BUN 52 mg/dl (9-20) H 04/20/25 08:22
Creatinine 1.4 mg/dL (0.7-1.3) H 04/20/25 08:22
eGFR 51.13 04/20/25 08:22
Glucose 99 mg/dl (70-99) 04/20/25 08:22
Calcium 9.3 mg/dl (8.4-10.2) 04/20/25 08:22
Phosphorus 6.0 mg/dl (2.5-4.5) H 04/10/25 03:02
Qkr-P-Vvoeebtczxb Pept 67000 pg/ml 04/08/25 16:55
Albumin 2.1 g/dl (3.5-5.0) L 04/11/25 03:29
Physical Exam
-
Vital Signs:
Vital Signs
Temp Pulse Resp BP Pulse Ox
97.8 F 88 20 159/72 99
04/20/25 07:20 04/20/25 07:20 04/20/25 07:20 04/20/25 09:03 04/20/25 07:20
Cardiovascular:: Regular rate and rhythm
Respiratory:: Bilateral: CTA (decreased BS)
Lung Excursion:: Normal
Abdomen:: Nontender and Soft
Bowel Sounds:: Normal
Extremity Edema:: None: Bilateral:
Esteves Catheter: Yes
Other Findings::
left UE echymosis noted-improving edema
--- NOTE | 2025-04-20 10:59 | W.PN.HOSP.TC ---
Today's Communication/Plan
-
Resume Eliquis starting tomorrow
Continue with current medication
PT OT eval
DC planning
Assessment / Plan
Assessment / Plan
Assessment/Plan
79-year-old with history of end-stage renal disease status post kidney transplant 2019 on antirejection medications, hypertension, hyperlipidemia, atrial fibrillation on Eliquis, urinary retention status post catheter placement several days prior to
admission presenting to the emergency department with fever and chills as well as weakness, admitted for sepsis secondary to transplant pyelonephritis, acute renal failure of transplanted kidney with development of acute hypoxic respiratory failure,
inability to tolerate HD secondary to severe and now s/p TAVR 04/06.

Left Upper Extremity Hematoma
Likely contained pseudoaneurysm -- status post left mid forearm A-line placement, then forearm swelling, then found to have likely contained pseudoaneurysm based on imaging
-arterial US/angiogram 04/09/25 with active extravasation in left forearm with associated hematoma
-appreciate Vascular surgery input - based on comorbidities/skin tissue integrity trying to avoid surgical intervention - continue karl bandage wrap and compression
-Repeat arterial duplex 04/12/25 -- with no evidence of active extravasation or pseudoaneurysm
-Continue karl wrap for gentle compression at the LUE -- edema has improved
-Continue daily or PRN dressing change for forearm skin tear, wound care nursing consulted
Acute blood loss anemia secondary to multiple sources: LUE hematoma, melena , hematuria , epistaxis
-So far, patient has received 10 units of red blood cells this hospitalization (10th one was given in OR on 04/15/25)
-H&H stable
Thrombocytopenia
-HIT panel testing was negative
-appreciate Heme eval
-Normalized platelet
Severe aortic stenosis with cardiogenic shock status post TAVR on 04/06
- RHC 03/30 indicated aortic stenosis as source of low cardiac output/cardiogenic shock.
- s/p cardiac cath 04/02/25 - non-obstructive CAD
- Decision made for more urgent TAVR
- Post TTE shows stable valve, normal gradients, no effusion.
-Cardiology signed off
e requiring hemodialysis
Creatinine stable at 1.4 on close today nonoliguric. Holding on further hemodialysis and following clinically.
Continue with pred/MMF
Hydronephrosis of transplanted kidney
- Obstructive uropathy of transplant kidney, Disla placed 03/15/25
- Maintain Disla catheter
-S/P cystoscopy and stent placement
Acute hypoxic respiratory failure requiring intubation 03/21-03/25
Bilateral small pleural effusions and as seen on previous imaging, pulmonary fibrosis
Resolved
Septic shock associated with acute kidney injury, lactic acidosis secondary to Klebsiella bacteremia likely secondary to urinary tract infection
Transplant kidney pyelonephritis with Klebsiella and E. faecalis
Immunosuppressed
Resolved
CW ABX per ID - on Ceftriaxone now
Pulmonary embolus within the posterior left lower lobe segmental pulmonary artery on CT Chest on 04/04/25
Short-segment left axillary vein thrombus
-Seen on CT Chest done in preparation for aortic valve surgery
-AC on hold due to bleeding issues
-Urology ok to start AC from tomorrow
Nonocclusive thrombus within the right cephalic vein within the distal aspect of the upper arm
Occlusive thrombus within the cephalic vein in the proximal forearm
-Conservative management for superficial venous thrombosis
Acute blood loss anemia with baseline chronic macrocytic anemia
Melena on 04/11-04/12
Epistaxis
Hematuria developed on 04/11/25-04/12/25
-Status post total of 10 units of PRBCs so far (10th unit was given perioperatively on 04/15/25)
-GI saw patient on 04/12/25, no endoscopy given current patient's current condition, GI has signed off
-Continue PPI BID
Permanent Atrial Fibrillation
- Rate controlled
-Urology okay to resume Eliquis from their end starting tomorrow
-Continue with beta-armando
Hypertension
-Home Amlodipine 5 mg daily resumed on 04/13/25
-Holding Losartan for now given tenuous kidney situation with urinary bleeding
Sacrum Stage 2 Pressure Injury
-Wound care
Resolved issues
TME
Epistaxis
Ex-Smoker
DVT Prophylaxis: SCDs only given bleeding.
Diet: Tolerating oral diet
Code status - Full Code
Anticipated Discharge: > 48 hours
Subjective/Interval History
-
Date of Service: April 20, 2025
No overnight events. Slept okay.
Denies any nausea vomiting. Tolerating diet.
Denies any chest pain or shortness of breath.
Has not gotten out of bed much. Feeling very weak in his legs.
Objective Data
-
Labs:
Laboratory Results
04/20/25
08:22
WBC 7.0
Hgb 9.9 L
Hct 30.8 L
Plt Count 185 D
Sodium 136
Potassium 4.2
Chloride 105
Carbon Dioxide 26
BUN 52 H
Creatinine 1.4 H
Glucose 99
Calcium 9.3
Vital Signs:
Vital Signs
Temp Pulse Resp BP Pulse Ox
97.8 F 88 20 159/72 99
04/20/25 07:20 04/20/25 07:20 04/20/25 07:20 04/20/25 09:03 04/20/25 07:20
I&O
04/19/25 04/20/25 04/21/25
06:59 06:59 06:59
Intake Total 600 / 600 480 / 480
Output Total 3000 / 3000 1500 / 1500
Balance -2400 / -2400 -1020 / -1020
Physical Exam
-
General: Comfortable
Respiratory: Non Labored Respirations; Negative Accessory Resp Muscle Use
Cardiac: Regular Rhythm and S1/S2
GI: Soft and Nontender
Genito-urinary: Clear Urine and Disla
Neuro: AO x 3
Psych: Calm; Negative Confused
Data Reviewed
-
Labs: Labs Reviewed by me
[2025-04-20 11:52] LABS: Glucose - Point of Care 271 mg/dl (70-99)
[2025-04-20] MEDS: APRESOLINE 5 MG IV (12:08)
[2025-04-20] MEDS: STERILE WATER FOR INJECTION 20 ML IV (12:09)
[2025-04-20] MEDS: ROCEPHIN 2000 MG IV (12:09)
[2025-04-20] MEDS: NOVOLOG FLEXPEN-HIGH RESISTANCE 7 UNITS SC (13:21)
[2025-04-20] MEDS: ZOFRAN 4 MG IV (13:31)
[2025-04-20] MEDS: ROXICODONE 5 MG PO ×2 (13:31→22:09)
--- NOTE | 2025-04-20 13:43 | CM ---
Chart reviewed. PT recommending acute rehab, referral in for [facility]. At this time their decision is pending and is requesting a PM&R consult.
TT to hospitalist for PM&R order.
Spoke w/ patient's , reviewed therapy recommendation, answered all her questions as she was overwhelmed and hadn't received any updates. Patient's would like to know update w/ medical progress to assure patient will be stable enough to
tolerate acute rehabilitation. TT to hospitalist to give a call as she requested
Plan: [facility], pending PM&R assessment
--- NOTE | 2025-04-20 14:41 | W.PN.ID1 ---
Date of Service
Date of Service: April 20, 2025
Today's Communication
Continue ceftriaxone.
Assessment / Plan
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
# Obstructive uropathy of transplant kidney, esteves placed since 03/15
# s/p Recent shock transplant kidney pyelonephritis with Klebsiella and E. faecalis, Klebsiella bacteremia s/p 14d abx (against both org) completed 04/02/25
# s/p cardiogenic shock, respiratory failure intubated 03/21; extubated 03/25/25
# chronic interstitial lung disease
# Severe aortic stenosis s/p TAVR 04/06/25
# ELIZABETH on CKD requiring renal replacement therapy (03/20 - 04/01). ELIZABETH continues to improve Cr 1.4
# PE (04/04/25), LUE DVT (04/08/25), RUE DVT (04/12/25)
# LUE midforearm hematoma/bleeding from IV catheter attempt (04/09/25). No pseudoaneurysm .
# Gross hematuria, resolved
# New fever 04/14, resolved
# Leukocytosis, resolved
# Klebsiella pneumoniae bacteremia x 3 sets
# Complicated transplant kidney UTI/obstructive uropathy
- Repeat blood cx's 04/16 and 04/17 neg to date
- 04/15 s/p OR cysto, successful ureter stent placement. Per Urology + bleeding and pus from transplant kidney
OR urine cx - also K pneumoniae with different sensitivities - intermediate to cefazolin, sensitive to ceftriaxone
- Continue ceftriaxone 2 gm IV q24 (d6)
- At time of discharge, transition to po cipro.
Chief Complaint
-: UTI and Bacteremia
Subjective / Review of Systems
Eating better.
Vital Signs / Physical Exam
Vital Signs
Vital Signs
Temp Pulse Resp BP Pulse Ox
98.3 F 90 24 149/72 100
04/20/25 11:25 04/20/25 13:28 04/20/25 11:25 04/20/25 13:28 04/20/25 11:25
Physical Exam
Constitutional: No Acute Distress and Comfortable
Eyes: Sclera Anicteric
Cardiovascular: Irregular Rate and S1/S2
Pulmonary: Coarse
Gastrointestinal: Soft, Non Tender and Non Distended
Genito-Urinary: Esteves, Clear Urine and Other (Transplant kidney nontender)
Extremities: Negative Edema
Neurological: AO x 3
Objective Data
Lab Data
Lab Results
04/20/25 08:22
04/20/25 08:22
ESR 87 mm/hour (0-20) H 04/11/25 03:29
PT 14.7 Sec (11.4-14.6) H 04/16/25 04:57
INR 1.17 04/16/25 04:57
APTT 28.9 Sec (23.4-35.0) 04/16/25 04:57
Estimated Creat Clear 43 ml/min 04/20/25 08:22
Lactic Acid 2.0 mmol/L (0.7-2.0) 04/14/25 20:51
Total Bilirubin 0.8 mg/dl (0.2-1.3) 04/11/25 03:29
AST 40 U/L (17-59) 04/11/25 03:29
ALT 32 U/L (0-50) 04/11/25 03:29
Alkaline Phosphatase 85 U/L (38-126) 04/11/25 03:29
C-Reactive Protein Cancelled 04/08/25 16:00
Most recent labs reviewed.
Micro Results:
04/17/25 06:15 Blood Culture - Preliminary
Blood/Venous No Growth in 72 hours- Final report to follow
04/16/25 04:57 Blood Culture - Preliminary
Blood/Venous No Growth in 4 days- Final report to follow
04/15/25 10:17 Urine Culture - Final
Urine Klebsiella pneumoniae
Klebsiella pneumoniae#2
04/14/25 20:01 Blood Culture - Preliminary
Blood/Venous Klebsiella pneumoniae
Gram Stain - Preliminary
04/14/25 20:50 Blood Culture - Final
Blood/Venous Klebsiella pneumoniae
Gram Stain - Final
04/14/25 20:01 Blood Culture - Final
Blood/Venous Klebsiella pneumoniae
Gram Stain - Final
04/14/25 20:01 Influenza Types A & B (NOLVIA) - Final
Nasal Swab Negative for Influenza A & B, NAAT
Negative results must be combined with clinical observations
and patient history.
Nucleic Acid Amplification test (NAAT)performed on the
[employer] platform.
04/12/25 08:38 Urine Culture - Final
Urine NO GROWTH
03/20/25 05:07 Blood Culture - Final
Blood/Venous No Growth - Final Report
03/20/25 05:34 Blood Culture - Final
Blood/Venous No Growth - Final Report
03/18/25 18:13 Urine Culture - Final
Urine Klebsiella pneumoniae
Enterococcus faecalis
03/18/25 17:02 Blood Culture - Final
Blood/Venous Klebsiella pneumoniae
Gram Stain - Final
03/18/25 17:01 Blood Culture - Final
Blood/Venous Klebsiella pneumoniae
Gram Stain - Final
03/18/25 23:17 MRSA Screen - Final
Nose No Methicillin Resistant Staphylococcus aureus isolated.
03/18/25 17:03 Influenza Types A & B (NOLVIA) - Final
Nasal Swab Negative for Influenza A & B, NAAT
Negative results must be combined with clinical observations
and patient history.
Nucleic Acid Amplification test (NAAT)performed on the
[employer] platform.
04/15/25 CT a/p:
1. Severe hydronephrosis of transplant kidney, unchanged.
2. Very small volume of gas within the transplant renal collecting system, decreased as compared with the previous exam. As above, there is gas in the transplant ureter including along the anastomosis with the urinary bladder, therefore both
infection and gas related to Esteves catheter remain considerations.
3. Fluid fluid level within the renal transplant collecting system. This could be related to excretion of contrast from previous procedure. Hemorrhage is also possible.
4. Bilateral small pleural effusions. Pulmonary fibrosis as seen previously. Decreased pneumomediastinum.
5. Small left groin hematoma related to previous transcatheter aortic valve replacement.
6. Dilated gallbladder. No abnormal wall thickening or pericholecystic fluid identified.
04/14/25 CXR: Stable diffuse interstitial prominence likely reflects underlying chronic interstitial lung disease
04/12/25 LUE arterial study: Patent left radial artery with no evidence of pseudoaneurysm. Previously visualized area of abnormality in the mid radial artery is not seen on today's examination
04/09/25 LUE Angio: Small foci of extravasated contrast material seen within the soft tissues at the level of the mid forearm adjacent to the radial artery. Consistent with mild active hemorrhage. Generalized edema. A focal soft tissue collection is
difficult to identify with certainty.
03/31/25 CXR: Slightly improved pulmonary interstitial markings suggesting resolving interstitial edema. Pneumomediastinum without significant change.
03/28/[address]: Mild pneumomediastinum, with superior extension into the fat at the base of the neck, as well as at the posterior and lateral aspect of the right mid to upper thorax. Diffuse bilateral interstitial and groundglass opacity. This
could be related to fluid associated with interstitial and pulmonary edema related to volume overload or congestive heart failure. Alternatively, findings may be infectious in nature related to atypical or viral pneumonitis. No focal dense
consolidation.
03/20/25 CXR: Grossly stable severe diffuse bilateral interstitial and airspace disease which may reflect combination of pulmonary edema and pneumonia. Cannot rule out component of underlying chronic interstitial lung disease.
03/19/25 CXR: Progressive parenchymal disease process, as described. Differential includes progressive congestive heart failure with pulmonary edema versus diffuse bilateral pneumonia, right greater than left.
03/18/25 CT a/p: Severe acute edema and inflammation around the right lower quadrant renal transplant which is new from 12/17/2024. Severe hydronephrosis of the right intrarenal collecting system and right renal pelvis which has increased. ACUTE
PYELONEPHRITIS of the RIGHT LOWER QUADRANT RENAL TRANSPLANT is considered most likely. Acute infarction of the renal transplant is a less likely diagnostic possibility. Severe diffuse urinary bladder wall thickening with surrounding perivesical
inflammation which appears new from 12/17/2024 suggesting SEVERE ACUTE CYSTITIS. Esteves catheter in the urinary bladder. Mildly enlarged prostate gland.
[2025-04-20 17:39] LABS: Glucose - Point of Care 148 mg/dl (70-99)
[2025-04-20] MEDS: NOVOLOG FLEXPEN-HIGH RESISTANCE 1 UNITS SC (17:50)
[2025-04-20] MEDS: REMOVE LIDOCAINE PATCH 1 PATCH REMOVE (20:20)
[2025-04-20] MEDS: VALIUM 2 MG PO (20:20)
[2025-04-20 21:21] LABS: Glucose - Point of Care 152 mg/dl (70-99)
[2025-04-20] MEDS: MELATONIN 5 MG PO (22:09)
[2025-04-20] MEDS: OCEAN, SALINE MIST NASAL (22:11)
[2025-04-21] VITALS (8 sets, daily range): BP systolic 127–176; BP diastolic 69–89; PULSE 90; O2SAT 96; BMI 21.4
[2025-04-21] MEDS: ROXICODONE 5 MG PO ×3 (03:49→21:48)
[2025-04-21 06:06] LABS: Hematocrit 29.1 % (39.0-52.0); Hemoglobin 9.1 g/dL (13.0-18.0); Mean Corp Hgb Conc. 31.3 g/dL (33.0-37.0); Mean Corpuscular Volume 95.7 fL (80.0-94.0); Platelet Count 179 10^3/uL (130-400); Red Cell Dist. Width 16.4 % (11.5-14.5)
[2025-04-21 06:32] LABS: Blood Urea Nitrogen 50 mg/dl (9-20); Calcium 9.0 mg/dl (8.4-10.2); Carbon Dioxide 25 mmol/L (22-30); Chloride 108 mmol/L (98-107); Estimated Creatinine Clearance 43 ml/min; Glucose 110 mg/dl (70-99); Potassium 4.3 mmol/L (3.5-5.1); Sodium 135 mmol/L (135-145); eGFR 51.13
--- NOTE | 2025-04-21 07:22 | W.PN.URO.CBU ---
Today's Communication / Plan
-
trial of eliquis
Assessment / Plan
-
hx of renal transplant with hydro of transplant kidney
urinary retention
Klebsiella UTI- urosepsis
hematuria -- resolved
hydro of transplant- s/p stent placement
pt better
on asa- platelets recovering-ok to restart eliquis and observe
pt's infx and renal parameters have improved dramatically with stent in place- he also has baseline urinary retention- will need to be discharged with esteves and stent and f/u at transplant center to discuss options for ongoing management of both
issues
Diagnosis
-
Date of Service: April 21, 2025
-
Patient Urologic Diagnosis:
hx of renal transplant
urinary retention
hydro of renal transplant
UTI
hematuria
UTI AND HEMATURIA DUE TO OBSTRUCTED TRANSPLANT
s/p cysto/transplant stent placement/fulguration 04/15
Subjective
-
pt stable
urine clear
cr and wbc down/platelets up
f/u blood cx's negative
Objective
-
Vital Signs
Temp Pulse Resp BP Pulse Ox
98.4 F 83 24 155/83 99
04/21/25 03:32 04/21/25 03:32 04/21/25 03:32 04/21/25 03:32 04/21/25 03:32
Intake and Output
04/20/25 04/21/25 04/22/25
06:59 06:59 06:59
Intake Total 480 / 480 480 / 480
Output Total 1500 / 1500 1000 / 1000
Balance -1020 / -1020 -520 / -520
Intake:
Oral fluids 480 / 480 480 / 480
Output:
Urine, Esteves 1500 / 1500 1000 / 1000
Laboratory Results
04/21/25 05:56
04/21/25 05:56
Physical Exam
-
General - no acute distress
--- NOTE | 2025-04-21 08:10 | W.PN.ONC2 ---
Today's Communication / Plan
-
Thrombocytopenia has resolved. Eliquis is being restarted. Hematology will sign off
Impression
Impression
Thrombocytopenia, multifactorial including infection -HIT negative -platelets now normal -received 2U SDP during hospitalization, last 04/15
ESRD s/p failed transplant 2018, on MMF, prednisone
severe b/l hydronephrosis
Atrial fibrillation, AC on hold 06/14 ABLA
Urosepsis complicated by Klebsiella bacteremia, 04/14 Bcx +for Klebsiella
Severe complicated by cardiogenic shock s/p TAVR 04/06, ASA held 04/13-04/17, resumed 04/18
New small PE on 04/04 CT chest, LUE DVT 04/08, RUE DVT 04/13
Acute blood loss anemia, hematuria, LUE hematoma, melena, epistaxis, & Left groin hematoma - s/p 10U PRBC since 03/19, last 04/15
Constipation
chronic interstitial lung disease
Plan
Plan
Consider DVT ppx vs therapeutic anticoagulation for VTE if deemed safe from a bleeding perspective discussed with patient and family at bedside
Subjective/Objective
Chief Complaint
ACS Heme F/U
Subjective
Generalized weakness but no complaints. Noted plans to restart Eliquis trial.
Vital Signs:
Vital Signs
Temp Pulse Resp BP Pulse Ox
98.4 F 83 24 155/83 99
04/21/25 03:32 04/21/25 03:32 04/21/25 03:32 04/21/25 03:32 04/21/25 03:32
Lab Results:
Laboratory Data
WBC 7.5 10^3/uL (4.8-10.8) 04/21/25 05:56
Hgb 9.1 g/dL (13.0-18.0) L 04/21/25 05:56
Plt Count 179 10^3/uL (130-400) 04/21/25 05:56
PT 14.7 Sec (11.4-14.6) H 04/16/25 04:57
INR 1.17 04/16/25 04:57
APTT 28.9 Sec (23.4-35.0) 04/16/25 04:57
eGFR 51.13 04/21/25 05:56
[2025-04-21] MEDS: PROTONIX 40 MG PO ×2 (08:24→20:13)
[2025-04-21] MEDS: DELTASONE 2.5 MG PO ×2 (08:25→20:13)
[2025-04-21] MEDS: LOW STRENGTH ASPIRIN 81 MG PO (08:25)
[2025-04-21] MEDS: SENOKOT-S 1 TABLET PO ×2 (08:25→20:13)
[2025-04-21] MEDS: MIRALAX 17 GRAMS PO (08:25)
[2025-04-21] MEDS: ELIQUIS 5 MG PO ×2 (08:25→20:13)
[2025-04-21] MEDS: HYDROPHOR 1 APPLIC TOPICAL (08:26)
[2025-04-21] MEDS: LIDOCAINE 4% PATCH 1 PATCH TOPICAL (08:26)
[2025-04-21] MEDS: SANTYL OINTMENT 1 APPLIC TOPICAL (08:27)
[2025-04-21] MEDS: LOPRESSOR 25 MG PO ×2 (08:28→20:12)
[2025-04-21] MEDS: OCEAN, SALINE MIST 50 SPRAYS NASAL ×2 (08:30→15:09)
[2025-04-21] MEDS: NORVASC 5 MG PO (08:33)
[2025-04-21] MEDS: DESENEX/MITRAZOL/ZEASORB 1 APPLIC TOPICAL ×2 (08:33→20:14)
[2025-04-21 08:40] LABS: Glucose - Point of Care 100 mg/dl (70-99)
[2025-04-21] MEDS: NOVOLOG FLEXPEN 3 UNITS SC ×2 (08:41→17:55)
[2025-04-21] MEDS: NOVOLOG FLEXPEN-HIGH RESISTANCE 1 UNITS SC (08:41)
[2025-04-21] MEDS: CELLCEPT 1000 MG PO ×2 (08:43→20:14)
--- NOTE | 2025-04-21 09:12 | W.PN.ID1 ---
Date of Service
Date of Service: April 21, 2025
Today's Communication
- Continue ceftriaxone 2 gm IV q24 (d7)
- At time of discharge, transition to po cipro 500mg po bid through 04/29.
Assessment / Plan
# Gross hematuria, resolved
# New fever 04/14, resolved
# Leukocytosis, resolved
# Complicated transplant kidney UTI/obstructive uropathy
# # Recurrent Klebsiella pneumoniae bacteremia x 3 sets (04/14/25)
- Repeat blood cx's 04/16 and 04/17 neg t
- 04/15 s/p OR cysto, successful ureter stent placement. Per Urology + bleeding and pus from transplant kidney
OR urine cx - K pneumoniae
- Continue ceftriaxone 2 gm IV q24 (d7)
- At time of discharge, transition to po cipro 500mg po bid through 04/29.
- To resume Eliquis per Urology. Monitor closely for gross hematuria.
# hx donor renal txp on immunosuppressive drugs, recent rejection
# Obstructive uropathy of transplant kidney, esteves since 03/15 outpatient
# s/p Recent shock transplant kidney pyelonephritis with Klebsiella and E. faecalis, Klebsiella bacteremia s/p 14d abx (against both org) completed 04/02/25
# s/p cardiogenic shock, respiratory failure intubated 03/21; extubated 03/25/25
# chronic interstitial lung disease
# Severe aortic stenosis s/p TAVR 04/06/25
# ELIZABETH on CKD requiring renal replacement therapy (03/20 - 04/01). ELIZABETH resolving Cr 1.4
# PE (04/04/25), LUE DVT (04/08/25), RUE DVT (04/12/25)
# LUE midforearm hematoma/bleeding from IV catheter attempt (04/09/25). No pseudoaneurysm .
Chief Complaint
-: UTI and Bacteremia
Subjective / Review of Systems
No new complaints.
Vital Signs / Physical Exam
Vital Signs
Vital Signs
Temp Pulse Resp BP Pulse Ox
97.4 F 89 20 176/89 99
04/21/25 07:30 04/21/25 07:30 04/21/25 07:30 04/21/25 08:28 04/21/25 07:30
Physical Exam
Constitutional: No Acute Distress and Comfortable
Eyes: Sclera Anicteric
Cardiovascular: Irregular Rate and S1/S2
Pulmonary: Coarse
Gastrointestinal: Soft, Non Tender and Non Distended
Genito-Urinary: Esteves, Clear Urine and Other (Transplant kidney nontender)
Extremities: Negative Edema
Neurological: AO x 3
Objective Data
Lab Data
Lab Results
04/21/25 05:56
04/21/25 05:56
ESR 87 mm/hour (0-20) H 04/11/25 03:29
PT 14.7 Sec (11.4-14.6) H 04/16/25 04:57
INR 1.17 04/16/25 04:57
APTT 28.9 Sec (23.4-35.0) 04/16/25 04:57
Estimated Creat Clear 43 ml/min 04/21/25 05:56
Lactic Acid 2.0 mmol/L (0.7-2.0) 04/14/25 20:51
Total Bilirubin 0.8 mg/dl (0.2-1.3) 04/11/25 03:29
AST 40 U/L (17-59) 04/11/25 03:29
ALT 32 U/L (0-50) 04/11/25 03:29
Alkaline Phosphatase 85 U/L (38-126) 04/11/25 03:29
C-Reactive Protein Cancelled 04/08/25 16:00
Most recent labs reviewed.
Micro Results:
04/14/25 20:01 Blood Culture - Final
Blood/Venous Klebsiella pneumoniae
Gram Stain - Final
04/17/25 06:15 Blood Culture - Preliminary
Blood/Venous No Growth in 4 days- Final report to follow
04/16/25 04:57 Blood Culture - Final
Blood/Venous No Growth - Final Report
04/15/25 10:17 Urine Culture - Final
Urine Klebsiella pneumoniae
Klebsiella pneumoniae#2
04/14/25 20:50 Blood Culture - Final
Blood/Venous Klebsiella pneumoniae
Gram Stain - Final
04/14/25 20:01 Blood Culture - Final
Blood/Venous Klebsiella pneumoniae
Gram Stain - Final
04/14/25 20:01 Influenza Types A & B (NOLVIA) - Final
Nasal Swab Negative for Influenza A & B, NAAT
Negative results must be combined with clinical observations
and patient history.
Nucleic Acid Amplification test (NAAT)performed on the
[employer] platform.
04/12/25 08:38 Urine Culture - Final
Urine NO GROWTH
03/20/25 05:07 Blood Culture - Final
Blood/Venous No Growth - Final Report
03/20/25 05:34 Blood Culture - Final
Blood/Venous No Growth - Final Report
03/18/25 18:13 Urine Culture - Final
Urine Klebsiella pneumoniae
Enterococcus faecalis
03/18/25 17:02 Blood Culture - Final
Blood/Venous Klebsiella pneumoniae
Gram Stain - Final
03/18/25 17:01 Blood Culture - Final
Blood/Venous Klebsiella pneumoniae
Gram Stain - Final
03/18/25 23:17 MRSA Screen - Final
Nose No Methicillin Resistant Staphylococcus aureus isolated.
03/18/25 17:03 Influenza Types A & B (NOLVIA) - Final
Nasal Swab Negative for Influenza A & B, NAAT
Negative results must be combined with clinical observations
and patient history.
Nucleic Acid Amplification test (NAAT)performed on the
[employer] platform.
04/15/25 CT a/p:
1. Severe hydronephrosis of transplant kidney, unchanged.
2. Very small volume of gas within the transplant renal collecting system, decreased as compared with the previous exam. As above, there is gas in the transplant ureter including along the anastomosis with the urinary bladder, therefore both
infection and gas related to Esteves catheter remain considerations.
3. Fluid fluid level within the renal transplant collecting system. This could be related to excretion of contrast from previous procedure. Hemorrhage is also possible.
4. Bilateral small pleural effusions. Pulmonary fibrosis as seen previously. Decreased pneumomediastinum.
5. Small left groin hematoma related to previous transcatheter aortic valve replacement.
6. Dilated gallbladder. No abnormal wall thickening or pericholecystic fluid identified.
04/14/25 CXR: Stable diffuse interstitial prominence likely reflects underlying chronic interstitial lung disease
04/12/25 LUE arterial study: Patent left radial artery with no evidence of pseudoaneurysm. Previously visualized area of abnormality in the mid radial artery is not seen on today's examination
04/09/25 LUE Angio: Small foci of extravasated contrast material seen within the soft tissues at the level of the mid forearm adjacent to the radial artery. Consistent with mild active hemorrhage. Generalized edema. A focal soft tissue collection is
difficult to identify with certainty.
03/31/25 CXR: Slightly improved pulmonary interstitial markings suggesting resolving interstitial edema. Pneumomediastinum without significant change.
03/28/[address]: Mild pneumomediastinum, with superior extension into the fat at the base of the neck, as well as at the posterior and lateral aspect of the right mid to upper thorax. Diffuse bilateral interstitial and groundglass opacity. This
could be related to fluid associated with interstitial and pulmonary edema related to volume overload or congestive heart failure. Alternatively, findings may be infectious in nature related to atypical or viral pneumonitis. No focal dense
consolidation.
03/20/25 CXR: Grossly stable severe diffuse bilateral interstitial and airspace disease which may reflect combination of pulmonary edema and pneumonia. Cannot rule out component of underlying chronic interstitial lung disease.
03/19/25 CXR: Progressive parenchymal disease process, as described. Differential includes progressive congestive heart failure with pulmonary edema versus diffuse bilateral pneumonia, right greater than left.
03/18/25 CT a/p: Severe acute edema and inflammation around the right lower quadrant renal transplant which is new from 12/17/2024. Severe hydronephrosis of the right intrarenal collecting system and right renal pelvis which has increased. ACUTE
PYELONEPHRITIS of the RIGHT LOWER QUADRANT RENAL TRANSPLANT is considered most likely. Acute infarction of the renal transplant is a less likely diagnostic possibility. Severe diffuse urinary bladder wall thickening with surrounding perivesical
inflammation which appears new from 12/17/2024 suggesting SEVERE ACUTE CYSTITIS. Esteves catheter in the urinary bladder. Mildly enlarged prostate gland.
[2025-04-21] MEDS: STERILE WATER FOR INJECTION 20 ML IV (13:47)
[2025-04-21] MEDS: ROCEPHIN 2000 MG IV (13:47)
[2025-04-21] MEDS: NOVOLOG FLEXPEN-HIGH RESISTANCE SC (14:56)
[2025-04-21] MEDS: TYLENOL 650 MG PO (15:08)
[2025-04-21] MEDS: NOVOLOG FLEXPEN SC (15:21)
--- NOTE | 2025-04-21 15:27 | W.PN.HOSP.TC ---
Today's Communication/Plan
-
CW current tx
DC planning
Assessment / Plan
Assessment / Plan
Assessment/Plan
79-year-old with history of end-stage renal disease status post kidney transplant 2019 on antirejection medications, hypertension, hyperlipidemia, atrial fibrillation on Eliquis, urinary retention status post catheter placement several days prior to
admission presenting to the emergency department with fever and chills as well as weakness, admitted for sepsis secondary to transplant pyelonephritis, acute renal failure of transplanted kidney with development of acute hypoxic respiratory failure,
inability to tolerate HD secondary to severe and now s/p TAVR 04/06.

Left Upper Extremity Hematoma
Likely contained pseudoaneurysm -- status post left mid forearm A-line placement, then forearm swelling, then found to have likely contained pseudoaneurysm based on imaging
-arterial US/angiogram 04/09/25 with active extravasation in left forearm with associated hematoma
-appreciate Vascular surgery input - based on comorbidities/skin tissue integrity trying to avoid surgical intervention - continue karl bandage wrap and compression
-Repeat arterial duplex 04/12/25 -- with no evidence of active extravasation or pseudoaneurysm
-Continue karl wrap for gentle compression at the LUE -- edema has improved
-Continue daily or PRN dressing change for forearm skin tear, wound care nursing consulted
Acute blood loss anemia secondary to multiple sources: LUE hematoma, melena , hematuria , epistaxis
-So far, patient has received 10 units of red blood cells this hospitalization (10th one was given in OR on 04/15/25)
-H&H stable
Thrombocytopenia
-HIT panel testing was negative
-appreciate Heme eval
-Normalized platelet
Severe aortic stenosis with cardiogenic shock status post TAVR on 04/06
- RHC 03/30 indicated aortic stenosis as source of low cardiac output/cardiogenic shock.
- s/p cardiac cath 04/02/25 - non-obstructive CAD
- Decision made for more urgent TAVR
- Post TTE shows stable valve, normal gradients, no effusion.
-Cardiology signed off
e requiring hemodialysis
Creatinine stable at 1.4 on close today nonoliguric. Holding on further hemodialysis and following clinically.
Continue with pred/MMF
Hydronephrosis of transplanted kidney
- Obstructive uropathy of transplant kidney, Disla placed 03/15/25
- Maintain Disla catheter
-S/P cystoscopy and stent placement
Acute hypoxic respiratory failure requiring intubation 03/21-03/25
Bilateral small pleural effusions and as seen on previous imaging, pulmonary fibrosis
Resolved
Septic shock associated with acute kidney injury, lactic acidosis secondary to Klebsiella bacteremia likely secondary to urinary tract infection
Transplant kidney pyelonephritis with Klebsiella and E. faecalis
Immunosuppressed
Resolved
CW ABX per ID - on Ceftriaxone now
Pulmonary embolus within the posterior left lower lobe segmental pulmonary artery on CT Chest on 04/04/25
Short-segment left axillary vein thrombus
-Seen on CT Chest done in preparation for aortic valve surgery
-AC on hold due to bleeding issues
-Urology ok to start AC from tomorrow
Nonocclusive thrombus within the right cephalic vein within the distal aspect of the upper arm
Occlusive thrombus within the cephalic vein in the proximal forearm
-Conservative management for superficial venous thrombosis
Acute blood loss anemia with baseline chronic macrocytic anemia
Melena on 04/11-04/12
Epistaxis
Hematuria developed on 04/11/25-04/12/25
-Status post total of 10 units of PRBCs so far (10th unit was given perioperatively on 04/15/25)
-GI saw patient on 04/12/25, no endoscopy given current patient's current condition, GI has signed off
-Continue PPI BID
Permanent Atrial Fibrillation
- Rate controlled
-Urology okay to resume Eliquis from their end starting tomorrow
-Continue with beta-armando
Hypertension
-Home Amlodipine 5 mg daily resumed on 04/13/25
-Holding Losartan for now given tenuous kidney situation with urinary bleeding
Sacrum Stage 2 Pressure Injury
-Wound care
Resolved issues
TME
Epistaxis
Ex-Smoker
DVT Prophylaxis: SCDs only given bleeding.
Diet: Tolerating oral diet
Code status - Full Code
PMR consulted
Start DC planning
Anticipated Discharge: 24 - 48 hours
Subjective/Interval History
-
Date of Service: April 21, 2025
No overnight events
Voices no speicif complaints
Eager to go to acute rehab
Objective Data
-
Labs:
Laboratory Results
04/21/25
05:56
WBC 7.5
Hgb 9.1 L
Hct 29.1 L
Plt Count 179
Sodium 135
Potassium 4.3
Chloride 108 H
Carbon Dioxide 25
BUN 50 H
Creatinine 1.4 H
Glucose 110 H
Calcium 9.0
Vital Signs:
Vital Signs
Temp Pulse Resp BP Pulse Ox
97.8 F 92 20 153/83 99
04/21/25 11:45 04/21/25 11:45 04/21/25 11:45 04/21/25 11:45 04/21/25 11:45
I&O
04/20/25 04/21/25 04/22/25
06:59 06:59 06:59
Intake Total 480 / 480 480 / 480
Output Total 1500 / 1500 1000 / 1000
Balance -1020 / -1020 -520 / -520
Physical Exam
-
General: Comfortable
HEENT: Moist Mucous Membranes
Respiratory: Non Labored Respirations; Negative Accessory Resp Muscle Use
Cardiac: Regular Rhythm and S1/S2
GI: Soft
Neuro: AO x 3
Data Reviewed
-
Labs: Labs Reviewed by me
--- NOTE | 2025-04-21 15:56 | W.PN.NEPH.PH ---
Today's Communication / Plan
-
follow labs
Assessment/Plan
-
This is a 79-year-old gentleman who follows in our office with Dr. Muhammad after donor renal transplant 2019 from [facility]. His transplant course has been complicated by development of nephrotic range proteinuria as well as recent
cellular rejection December of this year. The episodes treated with Solu-Medrol. His creatinine has risen quickly over time in the last several months. He has gone from a creatinine around 2 now up to 4.4. He was noted to have hydronephrosis of
the transplanted kidney recently on ultrasound as well as CT scan. Esteves catheter was placed by urology a few days ago. His appetite has been poor as of late. Recently he also developed fever and malaise and this has brought him to the emergency
room. He was noted to be febrile in the ER. Blood pressure was stable though lower than his home readings of 132. He was 100 systolic in the ER. Creatinine was 4.7 with elevated lactate level and elevated white count. CT of the abdomen and
pelvis were performed with suspicion for pyelonephritis of the transplant. We are asked to assist in management of his renal issues.
Assessment
Sepsis syndrome, possible pyelonephritis
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
donor renal transplant with FSGS, recent T-cell rejection
Obstructive uropathy, Esteves catheter in place
ELIZABETH..
Anemia
Hyponatremia
lactic acidosis
TAVR 04/06/25
LUE arterial oozing
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
Plan
creatinine stable at 1.4 and grossly nonoliguric
s/p OR on 04/15-noted gross hematuria from bleeding infeted transplant kidney s/p rt U stent
abx per ID for kleb bacteremia
back on AC today monitor for hematuria
monitor h/h, hb stable 9.1
Despite all of above he has stable renal function cr better than baseline and non oliguric
last belatacept dose was 11/28 (275mg/weight based-monthly dose), continue pred/MMF
tolerating diet
needs rehab
-
-
Date of Service: April 21, 2025
CC / HPI / ROS
-
Chief Complaint:
Sepsis
History of Present Illness:
ELIZABETH/Cr at 1.4-stable
BP stable
Hgb better at 9.1, last PRBC 04/15
no gross hematuria
Review of Systems:
non oliguric with esteves
eating well
no cp, no sob at rest
Labs
-
Labs:
WBC 7.5 10^3/uL (4.8-10.8) 04/21/25 05:56
RBC 3.04 10^6/uL (4.70-6.10) L 04/21/25 05:56
Hgb 9.1 g/dL (13.0-18.0) L 04/21/25 05:56
Hct 29.1 % (39.0-52.0) L 04/21/25 05:56
Plt Count 179 10^3/uL (130-400) 04/21/25 05:56
Sodium 135 mmol/L (135-145) 04/21/25 05:56
Potassium 4.3 mmol/L (3.5-5.1) 04/21/25 05:56
Chloride 108 mmol/L (98-107) H 04/21/25 05:56
Carbon Dioxide 25 mmol/L (22-30) 04/21/25 05:56
BUN 50 mg/dl (9-20) H 04/21/25 05:56
Creatinine 1.4 mg/dL (0.7-1.3) H 04/21/25 05:56
eGFR 51.13 04/21/25 05:56
Glucose 110 mg/dl (70-99) H 04/21/25 05:56
Calcium 9.0 mg/dl (8.4-10.2) 04/21/25 05:56
Phosphorus 6.0 mg/dl (2.5-4.5) H 04/10/25 03:02
Tnh-I-Peknqhgbroc Pept 50818 pg/ml 04/08/25 16:55
Albumin 2.1 g/dl (3.5-5.0) L 04/11/25 03:29
Physical Exam
-
Vital Signs:
Vital Signs
Temp Pulse Resp BP Pulse Ox
97.8 F 92 20 153/83 99
04/21/25 11:45 04/21/25 11:45 04/21/25 11:45 04/21/25 11:45 04/21/25 11:45
Cardiovascular:: Regular rate and rhythm
Respiratory:: Bilateral: CTA (decreased BS)
Lung Excursion:: Normal
Abdomen:: Nontender and Soft
Bowel Sounds:: Normal
Extremity Edema:: None: Bilateral:
Esteves Catheter: Yes
Other Findings::
left UE echymosis noted-improving edema
[2025-04-21 16:25] LABS: Magnesium 1.6 mg/dl (1.6-2.3)
--- NOTE | 2025-04-21 16:48 | PTCARENOTE ---
per MD Roman, ok to discontinue karl wrap to LUE will continue to elevate
[2025-04-21 17:41] LABS: Glucose - Point of Care 165 mg/dl (70-99)
[2025-04-21] MEDS: NOVOLOG FLEXPEN-HIGH RESISTANCE 2 UNITS SC (17:55)
--- NOTE | 2025-04-21 18:00 | CON.MD ---
Documented by User: Amelia Wolfe PA-C 04/22/25 19:08
Consultation - Medical
-
Referring Provider:�Trace Sanchez
Chief Complaint:�Debility
�
History of Present Illness:�This is a 79-year-old gentleman who follows with Dr. Muhammad, nephrology after donor renal transplant 2019 from [facility]. His transplant course has been complicated by development of nephrotic proteinuria
and recent cellular rejection December 2024. These episodes were treated with Solu-Medrol. His creatinine has quickly risen over the last several months from a creatinine around 2 now up to 4.4.
He presented to the ED for fever and malaise on 03/15/25. He was noted to be febrile, stable blood pressure with systolic of 100 lower than his home readings of 132. Creatinine of 4.7 with elevated lactate and white count. CT of the abdomen and
pelvis were performed with suspicion for pyelonephritis of the transplant.
He was noted to have hydronephrosis of the transplanted kidney on ultrasound and CT scan and esteves catheter was placed by urology on 03/15/2025 for Obstructive uropathy. S/P cystoscopy and stent placement
He developed Septic shock associated with acute kidney injury, lactic acidosis secondary to Klebsiella bacteremia likely secondary to urinary tract infection. Transplant kidney pyelonephritis with Klebsiella and E. faecalis. Immunosuppressed. on
Ceftriaxone now per infectious disease.
He development acute hypoxic respiratory failure requiring intubation 03/21-03/25.
Inability to tolerate HD secondary to severe with cardiogenic shock . s/p cardiac cath 04/02/25 - non-obstructive CAD. Pulmonary embolus within the posterior left lower lobe segmental pulmonary artery on CT Chest on 04/04/25 Short-segment left
axillary vein thrombus Seen on CT Chest done in preparation for aortic valve surgery -AC on hold due to bleeding issues
04/06 - s/p urgent TAVR with Post TTE showing stable valve, normal gradients, no effusion.
Developed Left Upper Extremity swelling post left mid forearm A-line placement with likely contained pseudoaneurysm based on imaging. Arterial US/angiogram 04/09/25 with active extravasation in left forearm with associated hematoma. Vascular
surgery consulted. Trying to avoid surgical intervention based on comorbidities/skin tissue integrity. Continue karl bandage wrap and compression.
04/12/2025- Repeated arterial duplex with no evidence of active extravasation or pseudoaneurysm,-Continued karl wrap compression of LUE with daily or PRN dressing change for forearm skin tear, wound care nursing consulted
Acute blood loss anemia secondary to multiple sources: LUE hematoma, melena , hematuria , epistaxis with patient requiring
-So far, 10 units of red blood cells this hospitalization (10th one was given in OR on 04/15/25)--noted gross hematuria from bleeding infeted transplant kidney s/p rt U stent
Hematology consulted for Thrombocytopenia-multifactorial including infection -HIT negative -platelets now normal -received 2U SDP during hospitalization, last 04/15.
04/21- patient back on anticoagulant- monitor for hematuria. Hgb - 9.1.
04/22 - nephrology note- creatinine stable at 1.4 and grossly nonoliguric with esteves, no labs today. Despite all of above he has stable renal function cr better than baseline. last belatacept dose was 04/09 (275mg/weight based-monthly dose),
continue pred/MMF
04/22-seen by speech for dysphagia. Currently on IDDSI 6I6. This was downgraded from regular solids in the past, as minimal intake noted. Intake increase and DHT able to be removed. Today, trial of regular solids and thin liquids. Adequate
mastication, bolus formation, transition noted with no oral residue. No overt signs of aspiration. Was recommended to upgrade to regular solids/thin liquids. Continuing general aspiration precautions. Meds as tolerated. Speech signing off.
Past Medical History:�Kidney transplant, aortic stenosis, s/p TAVR,
Procedure History:�TAVR�106/06, renal transplant at [facility] by Dr. Suzie BOOTHE�2018
Family History:�Mom - cancer, father smoker�emphysema
�
Social History:�
Functional Level Premorbidly:�Independent with all activities�
Functional Level Currently:�Bed mobility�mod assist, max assist, transfer�mod assist x 2, patient attempted to side to wars head of bed, however unable to to do because of bilateral lower extremity weakness, poor dynamic standing with rolling
walker, bilateral knee instability, eating�set up, grooming�set up, toileting, lower extremity self-care�dependent,
�
Tobacco:�Denies�
Alcohol:�Denies�
Drug use:�Denies�
�
Lives with:�spouse
24-hour assistance available:�yes
Number of floors:�1
# steps to enter:�2
# steps to second floor:0
Potential First floor set up:�yes
Driving:�yes
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
�
�
Allergies:�
Allergy/AdvReac Type Severity Reaction Status Date / Time
No Known Drug Allergies Allergy - Verified 03/18/25 16:11
�
Review of Systems:�
Constitutional: (x) abNormal _fatigued
Eye: (x) Normal _
Ear/Nose/Throat: (x) Normal _
Respiratory: (x) Normal _
Cardiovascular: (x) abNormal _permanent A-fib on Eliquis, s/p TAVR
Gastrointestinal: (x) Normal _
Genitourinary: (x) abNormal _kidney transplant�2018, ELIZABETH was on dialysis, CR back to baseline, non oligoric with Esteves, BPH
Musculoskeletal: (x) abNormal _bilateral leg weakness, chronic back pain
Integumentary: (x) Normal _
Neurologic: (x) Normal _
Psychiatric: (x) Normal _
Endocrine: (x) Normal _
Hematologic/Lymphatic: (x) abNormal _non occlusive DVT left axillary vein
Allergic/Immunologic: (x) Normal _
�
Medications:�
Active Current Visit Medication List
Category Date Time Status
Acetaminophen [Tylenol/Feverall] Med 03/18/25 21:09 Active
650 mg RECTAL Q4HPRN PRN
Acetaminophen [Tylenol] Med 03/18/25 21:09 Active
650 mg PO Q4HPRN PRN
Amlodipine [Norvasc] Med 04/13/25 10:51 Active
5 mg PO DAILY
Apixaban [Eliquis] Med 04/21/25 08:00 Active
5 mg PO BID
Artificial Tears (Pf) [Refresh Eye Drops (Pf)] Med 03/28/25 17:17 Active
1 drops OPHTH QIDPRN PRN
Aspirin Chewable [Low Strength Aspirin] Med 04/03/25 08:00 Active
81 mg PO DAILY
Benzocaine/Menthol [Anesthetic Lozenge] Med 04/08/25 11:35 Active
1 lozenge PO Q4HPRN PRN
CefTRIAXone [Rocephin] Med 04/18/25 12:00 Active
2,000 mg IV Q24H
Collagenase [Santyl Ointment] Med 04/15/25 17:00 Active
See Dose Instructions TOPICAL DAILY
Dextrose 50%-Water [Dextrose 50% Syringe] Med 03/29/25 09:18 Active
12.5 grams IV [id number] PRN
Diazepam [Valium] Med 03/31/25 10:32 Active
2 mg PO BID PRN
Docusate W/Senna [Senokot-S] Med 04/07/25 20:00 Active
1 tablet PO BID
Flush (0.9% Sodium Chloride) [Flush (Nss)] Med 03/19/25 23:00 Active
See Dose Instructions IV PER PROTOCOL
Glucagon [GlucaGen] Med 03/29/25 09:18 Active
1 mg IM PRN PRN
HydrALAZINE [Apresoline] Med 04/20/25 11:59 Active
5 mg IV Q6HPRN PRN
Insulin Aspart High Resistance [Novolog Flexpen-High Med 04/16/25 07:30 Active
Resistance]
See Protocol SC AC
Insulin Aspart Pen [Novolog Flexpen] Med 04/08/25 07:30 Active
3 units SC AC
Lidocaine [Lidocaine 4% Patch] Med 04/18/25 11:15 Active
1 patch TOPICAL DAILY
Mag Hydrox/Al Hydrox/Simeth [Maalox] Med 04/06/25 10:19 Active
30 ml PO Q4HPRN PRN
Melatonin Med 03/26/25 22:00 Active
5 mg PO HS
Metoprolol [Lopressor] Med 03/18/25 21:09 Active
25 mg PO BID
Miconazole Nitrate [Desenex/Mitrazol/Zeasorb] Med 04/07/25 01:00 Active
See Dose Instructions TOPICAL BID
Mycophenolate Mofetil [Cellcept] Med 03/30/25 20:00 Active
1,000 mg PO BID
Ondansetron Injectable [Zofran] Med 04/06/25 10:19 Active
4 mg IV Q8HPRN PRN
Oxycodone [Roxicodone] Med 04/12/25 13:05 Active
5 mg PO Q4HPRN PRN
Pantoprazole [Protonix] Med 04/19/25 20:00 Active
40 mg PO BID
Petrolatum/Mineral Oil [Hydrophor] Med 04/15/25 17:00 Active
See Dose Instructions TOPICAL DAILY
Polyethylene Glycol Powder [Miralax] Med 04/09/25 08:00 Active
17 grams PO DAILY
Prednisone [Deltasone] Med 04/05/25 08:00 Active
2.5 mg PO BID
Remove Patch [Remove Lidocaine Patch] Med 04/18/25 20:00 Active
See Dose Instructions REMOVE DAILY@1999
Sodium Chloride [[place], Saline Mist] Med 04/13/25 11:00 Active
See Dose Instructions NASAL TID
Sterile Water [Sterile Water For Injection] Med 04/18/25 12:00 Active
20 ml IV Q24H
�
Vitals:�
Temp Pulse Resp BP Pulse Ox
97.8 F 86 16 127/58 100
04/22/25 15:22 04/22/25 15:22 04/22/25 15:22 04/22/25 15:22 04/22/25 15:22
Height 6 ft
Actual Weight 71.838 kg
Body Mass Index (BMI) 21.5
�
Physical Exam:�
General Appearance/Observation: Well-developed, well-nourished individual in no apparent distress.�hyperventilating when speaking
Pain/Comfort Assessment: none at the moment
Mood/Affect: Appropriate�
�
Integumentary/Operative Site:incision with dressing- right side of neck
�� Pressure Ulcer Evaluation: absent over heels.�Heel pads notes, dry scaly skin - bottom of feet, fungal nails
��
�� Other Type of Wound: Sacral pressure wound- per chart, not visualized
��
�
Eyes: Conjunctiva/Lids: normal���� Pupils: pupils equal round and reactive to light and Accommodation�
Ears/Nose/Throat: oral mucosa moist,� throat clear- bruises����������� Lips/Teeth/Gums: lips dry�
Neck: No muscle spasm or tenderness�
Cardiovascular: Heart: regular, no murmur�
Pulses: dorsalis pedis 2+ bilaterally�
Respiratory: Respiratory Effort/Chest Expansion: normal������� Auscultation: diminished BS bilaterally, Clear to auscultation bilaterally�
Gastrointestinal: abdomen not tender, no distension, normal abdominal bowel sounds
Genitourinary: Esteves�with dark urine
Extremities:�Edema: LUE- mild edema and with large bruise from hand to above elbow�Cyanosis: None�Trophic�changes: None
�
Neurology Exam:
Orientation: Alert, Oriented to self, Time, Place�
Memory: Intact for basic information
Comprehension: Intact
Two step command: Intact
Naming: Intact
Cranial Nerves:
�� CNII:�Pupillary light reflex: Intact����Visual Field: Intact
�� CN III, IV, : Extraocular muscles: Intact�
�� CN V:�Facial Sensation�at�Forehead: Intact,�Maxilla: Intact,�Mandible: Intact
�� CN VII:�Facial movement: Symmetric
�� CN VIII:�Hearing: GAMBELL right more so than left
�� CN IX/X:�Speech & swallow: Normal,�Position of Uvula: Midline
�� CN XI:�Shoulder shrug: Symmetric
�� CN XII:�Tongue protrusion: Midline
Sensory:
�� Light touch: Intact in bilateral upper and lower extremities
��
�
Reflexes:
�� Biceps: 2+ bilaterally
�� Brachioradialis: 2+ bilaterally
�� Triceps: 2+ bilaterally
�� Patellar: 2+ bilaterally
�� Achilles: absent bilaterally
�� Babinski: Down going bilaterally
�� Clonus: NT
�� Johnson: NT
Cerebellar: Dysmetria/Ataxia: NT�
Musculoskeletal:
Motor: (Manual muscle scale 0-5)�
Muscle SA EF WE EE FF FA HF KE DF EHL PF
Right� NT 5 4 3+ 5 4 3+ 4 4 4 4
Left NT 5 4 3+ 5 4 3+ 4 4 4 4
�
Tone: Normal in all extremities�
Range of Motion: UE Passively within normal limits
�
Lab Results:
Labs
WBC 7.5 10^3/uL (4.8-10.8) 04/21/25 05:56
RBC 3.04 10^6/uL (4.70-6.10) L 04/21/25 05:56
Hgb 9.1 g/dL (13.0-18.0) L 04/21/25 05:56
Hct 29.1 % (39.0-52.0) L 04/21/25 05:56
MCV 95.7 fL (80.0-94.0) H 04/21/25 05:56
MCH 29.9 pg (27.0-31.0) 04/21/25 05:56
MCHC 31.3 g/dL (33.0-37.0) L 04/21/25 05:56
RDW 16.4 % (11.5-14.5) H 04/21/25 05:56
Plt Count 179 10^3/uL (130-400) 04/21/25 05:56
Plt Count Comment Yes 03/27/25 03:27
MPV 10.5 fL (7.4-10.4) H 04/21/25 05:56
Abs Immat Gran (auto) 0.7 10^3/uL (0-0.05) H 04/14/25 20:51
Absolute Neuts (auto) 11.7 10^3/uL (1.4-6.5) H 04/14/25 20:51
Absolute Lymphs (auto) 0.1 10^3/uL (1.2-3.4) L 04/14/25 20:51
Absolute Monos (auto) 0.9 10^3/uL (0.1-0.6) H 04/14/25 20:51
Absolute Eos (auto) 0.2 10^3/uL (0-0.7) 04/14/25 20:51
Absolute Basos (auto) 0.1 10^3/uL (0-0.2) 04/14/25 20:51
CBC Comment Cancelled 04/14/25 20:01
Total Counted 100 03/27/25 03:27
Immature Gran % 4.8 % (0-0.5) H 04/14/25 20:51
Neutrophils % 85.9 % (42.2-75.2) H 04/14/25 20:51
Lymphocytes % 0.7 % (20.5-51.1) L 04/14/25 20:51
Monocytes % 6.7 % (1.7-9.3) 04/14/25 20:51
Eosinophils % 1.5 % (0-6) 04/14/25 20:51
Basophils % 0.4 % (0-2) 04/14/25 20:51
Nucleated RBC % 0 % (-) 04/14/25 20:51
Abs Neuts (Manual) 10.6 10^3/uL (1.4-6.5) H 03/27/25 03:27
Segmented Neutrophils 82 % (42-75) H 03/27/25 03:27
Band Neutrophils 6 % (0-3) H 03/27/25 03:27
Lymphocytes (Manual) 3 % (20-51) L 03/27/25 03:27
Monocytes (Manual) 5 % (2-9) 03/27/25 03:27
Metamyelocytes 1 % (-) 03/27/25 03:27
Myelocytes 3 % (-) 03/27/25 03:27
Nucleated RBCs 1 (-) 03/25/25 04:23
Normal RBC Morphology No 03/27/25 03:27
Polychromasia 1+ 03/27/25 03:27
Hypochromasia 1+ 03/25/25 04:23
Poikilocytosis 1+ 03/26/25 03:21
Anisocytosis 1+ 03/20/25 05:07
Macrocytosis 1+ 03/27/25 03:27
Target Cells 1+ 03/25/25 04:23
Tear Drop Cells Slight 03/21/25 03:29
Ovalocytes Slight 03/21/25 03:29
[place] Cells 1+ 03/26/25 03:21
Acanthocytes (Spur) Slight 03/21/25 03:29
Rouleaux Slight 03/21/25 03:29
ESR 87 mm/hour (0-20) H 04/11/25 03:29
Retic Count 2.4 % (0.4-2.8) 04/11/25 03:29
PT 14.7 Sec (11.4-14.6) H 04/16/25 04:57
INR 1.17 04/16/25 04:57
APTT 28.9 Sec (23.4-35.0) 04/16/25 04:57
Fibrinogen 412 MG/DL (199-459) 04/16/25 04:57
D-Dimer 2.25 ug/mlFEU (0.00-0.50) H 03/24/25 04:05
pH 7.38 (7.35-7.45) 03/26/25 03:21
pCO2 31 mmHg (35-48) L 03/26/25 03:21
pO2 87 mmHg (83-108) 03/26/25 03:21
HCO3 18.3 mmol/L (21-28) L 03/26/25 03:21
Base Excess -6.1 mmol/L 03/26/25 03:21
ABG O2 Sat (Measured) 98.3 % (94-98) H 03/26/25 03:21
POC ABG O2 Sat (Calc) 99.8 % (94-98) H 04/06/25 12:10
VBG pH 7.34 (7.32-7.43) 03/30/25 11:36
VBG pCO2 37 mmHg (35-48) 03/30/25 11:36
VBG pO2 79 mmHg (30-50) H 03/30/25 11:36
VBG HCO3 20.0 mmol/L (22-27) L 03/30/25 11:36
VBG O2 Sat (Phillip) 96.7 % 03/30/25 11:36
VBG Base Excess -5.3 mmol/L (-4 to +4) 03/30/25 11:36
VBG O2 Therapy Ra 03/30/25 11:36
Sodium 136 mMOL/L (136-145) 03/25/25 04:23
Potassium 4.0 mMOL/L (3.5-5.1) 03/25/25 04:23
O2 Delivery Level 40 03/26/25 03:21
Sodium 135 mmol/L (135-145) 04/21/25 05:56
Potassium 4.3 mmol/L (3.5-5.1) 04/21/25 05:56
Chloride 108 mmol/L (98-107) H 04/21/25 05:56
Carbon Dioxide 25 mmol/L (22-30) 04/21/25 05:56
BUN 50 mg/dl (9-20) H 04/21/25 05:56
Creatinine 1.4 mg/dL (0.7-1.3) H 04/21/25 05:56
Estimated Creat Clear 43 ml/min 04/21/25 05:56
eGFR 51.13 04/21/25 05:56
Glucose 110 mg/dl (70-99) H 04/21/25 05:56
Hemoglobin A1c 5.8 % (4.0-5.9) 03/30/25 02:36
Lactic Acid 2.0 mmol/L (0.7-2.0) 04/14/25 20:51
Calcium 9.0 mg/dl (8.4-10.2) 04/21/25 05:56
Ionized Calcium Cancelled 03/29/25 17:00
Phosphorus 6.0 mg/dl (2.5-4.5) H 04/10/25 03:02
Magnesium 1.6 mg/dl (1.6-2.3) 04/21/25 05:56
Iron 36 ug/dl (49-181) L 03/26/25 08:33
TIBC 165 ug/dl (261-462) L 03/26/25 08:33
% Saturation 21 % (20-50) 03/26/25 08:33
Ferritin 1550.0 ng/ml (17.9-464.0) H 03/19/25 04:07
Erythropoietin 28 mU/mL (4-27) H 04/11/25 03:29
Total Bilirubin 0.8 mg/dl (0.2-1.3) 04/11/25 03:29
Direct Bilirubin 0.5 mg/dl (0.0-0.4) H 04/11/25 03:29
AST 40 U/L (17-59) 04/11/25 03:29
ALT 32 U/L (0-50) 04/11/25 03:29
Alkaline Phosphatase 85 U/L (38-126) 04/11/25 03:29
Lactate Dehydrogenase 389 U/L (120-246) H 04/09/25 11:40
C-Reactive Protein Cancelled 04/08/25 16:00
Cyo-[id number] Pept 77337 pg/ml 04/08/25 16:55
Total Protein 4.2 g/dl (6.3-8.2) L 04/11/25 03:29
Albumin 2.1 g/dl (3.5-5.0) L 04/11/25 03:29
Triglycerides 220 mg/dl (10-149) H 03/27/25 03:27
Whole Bld Vitamin B1 198 nmol/L (70-180) H 04/08/25 09:17
Vitamin B12 939 pg/ml (239-931) H 04/08/25 05:24
Folate 14.3 ng/ml (2.76-20) 03/19/25 04:07
Urine Color [place] 04/15/25 10:17
Urine Clarity Slightly cloudy (Clear) 04/15/25 10:17
Urine pH 6.5 (5.0-9.0) 04/15/25 10:17
Ur Specific [place] 1.005 (<1.030) 04/15/25 10:17
Urine Ketones Negative (Negative) 04/15/25 10:17
Ur Occult Blood Reflex 4+ (Negative) A 04/15/25 10:17
Urine Nitrite (Reflex) Negative (Negative) 04/15/25 10:17
Urine Bilirubin Negative (Negative) 04/15/25 10:17
Urine Urobilinogen Negative (Neg - 1+) 04/15/25 10:17
Leukocyte Esterase Rfl 3+ (Negative) A 04/15/25 10:17
Urine RBC >100 /HPF (0-2) A 04/15/25 10:17
Urine WBC (Reflex) 16-20 /HPF (0-5) A 04/15/25 10:17
Ur Squamous Epith Cells 3-5 /LPF (Few) 04/15/25 10:17
Urine Bacteria (Reflex) Moderate (Negative) A 04/15/25 10:17
Urine Glucose Negative (Negative) 04/15/25 10:17
Urine Albumin (Reflex) 3+ (Neg - Trace) A 04/15/25 10:17
Random Vancomycin 19.5 ug/ml 04/16/25 04:57
Hep-Induced Plt Ab [place] 04/09/25 11:40
Hep Bs Antigen Negative (Negative) 03/20/25 05:07
Hep Bs Antibody Negative 03/20/25 05:07
Hep B Core Total Ab Negative (Negative) 03/20/25 05:07
Hepatitis C Antibody Negative (Negative) 03/20/25 05:07
SARS-CoV-2 Antigen Negative (Negative) 04/14/25 20:01
Specimen Type Arterial 04/06/25 12:10
POC pH 7.27 (7.35-7.45) L 04/06/25 12:10
POC Base Excess -3.9 mmol/L 04/06/25 12:10
POC pO2 271 mmHg (83-108) H 04/06/25 12:10
POC pCO2 49 mmHg (35-48) H 04/06/25 12:10
POC HCO3 23 mmol/L (21-28) 04/06/25 12:10
POC Glucose 115 mg/dl (70-99) H 04/22/25 17:05
POC Glucose 96 mg/dl (70-99) 04/06/25 12:10
POC Sodium 138 mmol/L (136-145) 04/06/25 12:10
POC Potassium 4.6 mmol/L (3.5-5.1) 04/06/25 12:10
POC Ionized Calcium 1.21 mmol/L (1.15-1.33) 04/06/25 12:10
POC Lactate < 0.30 mmol/L (0.36-0.75) L 04/06/25 12:10
POC ACT Low Range 313 Seconds (116-155) H 04/06/25 11:30
POC Hemoglobin Calc 7.7 04/06/25 12:10
POC Hematocrit 23 % PCV (42-52) L 04/06/25 12:10
POC Hemodilution Yes 04/06/25 12:10
Blood Type A NEG 04/14/25 04:58
ABO Group Confirm Cancelled 03/19/25 04:07
Antibody Screen Negative (Negative) 04/14/25 04:58
Crossmatch IS Only See Detail 04/14/25 04:58
�
Diagnostic Results:�as per HPI�
04/15/25 CT a/p:
1. Severe hydronephrosis of transplant kidney, unchanged.
2. Very small volume of gas within the transplant renal collecting system, decreased as compared with the previous exam. As above, there is gas in the transplant ureter including along the anastomosis with the urinary bladder, therefore both
infection and gas related to Esteves catheter remain considerations.
3. Fluid fluid level within the renal transplant collecting system. This could be related to excretion of contrast from previous procedure. Hemorrhage is also possible.
4. Bilateral small pleural effusions. Pulmonary fibrosis as seen previously. Decreased pneumomediastinum.
5. Small left groin hematoma related to previous transcatheter aortic valve replacement.
6. Dilated gallbladder. No abnormal wall thickening or pericholecystic fluid identified.
04/14/25 CXR: Stable diffuse interstitial prominence likely reflects underlying chronic interstitial lung disease
04/12/25 LUE arterial study: Patent left radial artery with no evidence of pseudoaneurysm. Previously visualized area of abnormality in the mid radial artery is not seen on today's examination
04/09/25 LUE Angio: Small foci of extravasated contrast material seen within the soft tissues at the level of the mid forearm adjacent to the radial artery. Consistent with mild active hemorrhage. Generalized edema. A focal soft tissue collection is
difficult to identify with certainty.
03/31/25 CXR: Slightly improved pulmonary interstitial markings suggesting resolving interstitial edema. Pneumomediastinum without significant change.
03/28/[address]: Mild pneumomediastinum, with superior extension into the fat at the base of the neck, as well as at the posterior and lateral aspect of the right mid to upper thorax. Diffuse bilateral interstitial and groundglass opacity. This
could be related to fluid associated with interstitial and pulmonary edema related to volume overload or congestive heart failure. Alternatively, findings may be infectious in nature related to atypical or viral pneumonitis. No focal dense
consolidation.
03/20/25 CXR: Grossly stable severe diffuse bilateral interstitial and airspace disease which may reflect combination of pulmonary edema and pneumonia. Cannot rule out component of underlying chronic interstitial lung disease.
03/19/25 CXR: Progressive parenchymal disease process, as described. Differential includes progressive congestive heart failure with pulmonary edema versus diffuse bilateral pneumonia, right greater than left.
03/18/25 CT a/p: Severe acute edema and inflammation around the right lower quadrant renal transplant which is new from 12/17/2024. Severe hydronephrosis of the right intrarenal collecting system and right renal pelvis which has increased. ACUTE
PYELONEPHRITIS of the RIGHT LOWER QUADRANT RENAL TRANSPLANT is considered most likely. Acute infarction of the renal transplant is a less likely diagnostic possibility. Severe diffuse urinary bladder wall thickening with surrounding perivesical
inflammation which appears new from 12/17/2024 suggesting SEVERE ACUTE CYSTITIS. Esteves catheter in the urinary bladder. Mildly enlarged prostate gland.
�
Assessment: 79-year-old with history of end-stage renal disease status post kidney transplant 2019 on antirejection medications, hypertension, hyperlipidemia, atrial fibrillation on Eliquis, urinary retention status post catheter placement several
days prior to admission presenting to the emergency department with fever and chills as well as weakness, admitted for sepsis secondary to transplant pyelonephritis, acute renal failure of transplanted kidney with development of acute hypoxic
respiratory failure, inability to tolerate HD secondary to severe and now s/p TAVR 04/06.
�
Plan�
PM&R�PT/OT to increase independence with ADLs, improve balance, coordination, endurance, strength, mobility, community reintegration, decreased burden of care on others and family education.�
�
Left Upper Extremity Hematoma
Likely contained pseudoaneurysm -- status post left mid forearm A-line placement, then forearm swelling, then found to have likely contained pseudoaneurysm based on imaging
-arterial US/angiogram 04/09/25 with active extravasation in left forearm with associated hematoma
-appreciate Vascular surgery input - based on comorbidities/skin tissue integrity trying to avoid surgical intervention - continue karl bandage wrap and compression
-Repeat arterial duplex 04/12/25 -- with no evidence of active extravasation or pseudoaneurysm
-Continue karl wrap for gentle compression at the LUE -- edema has improved
-Continue daily or PRN dressing change for forearm skin tear, wound care nursing consulted
Acute blood loss anemia secondary to multiple sources: LUE hematoma, melena , hematuria , epistaxis
-So far, patient has received 10 units of red blood cells this hospitalization (10th one was given in OR on 04/15/25)
-H&H stable
Thrombocytopenia
-HIT panel testing was negative
-appreciate Heme eval
-Normalized platelet
Severe aortic stenosis with cardiogenic shock status post TAVR on 04/06
- RHC 03/30 indicated aortic stenosis as source of low cardiac output/cardiogenic shock.
- s/p cardiac cath 04/02/25 - non-obstructive CAD
- Decision made for more urgent TAVR
- Post TTE shows stable valve, normal gradients, no effusion.
-Cardiology signed off
ELIZABETH requiring hemodialysis
Creatinine stable at 1.4 today nonoliguric with esteves. Holding on further hemodialysis and following clinically.
Continue with pred/MMF
Hydronephrosis of right transplanted kidney
- Obstructive uropathy of transplant kidney, Esteves placed 03/15/25
- Maintain Esteves catheter
-S/P cystoscopy and stent placement
Acute hypoxic respiratory failure :requiring intubation 03/21-03/25- breathing on room air now. Chest xray- 04/14- Stable diffuse interstitial prominence likely reflects underlying chronic interstitial lung disease.
Septic shock associated with acute kidney injury, lactic acidosis secondary to Klebsiella bacteremia likely secondary to urinary tract infection
Transplant kidney pyelonephritis with Klebsiella and E. faecalis. Immunosuppressed
CW ABX per ID - on Ceftriaxone now
Pulmonary embolus within the posterior left lower lobe segmental pulmonary artery on CT Chest on 04/04/25
Short-segment left axillary vein thrombus
-Seen on CT Chest done in preparation for aortic valve surgery
-AC was on hold due to bleeding issues- Ok with urology -Eliquis resumed on 04/21
Nonocclusive thrombus within the right cephalic vein within the distal aspect of the upper arm
Occlusive thrombus within the cephalic vein in the proximal forearm
-Conservative management for superficial venous thrombosis
Acute blood loss anemia with baseline chronic macrocytic anemia
Melena on 04/11-04/12, Epistaxis ,Hematuria
-S/p 10 units of PRBCs so far (10th unit was given perioperatively on 04/15/25)
-GI saw patient on 04/12/25, no endoscopy given patient's current condition, GI signed off
-Continue PPI BID
Renal Transplant: Transplant team is following. Continue immunosuppressive and prophylactic therapies
HTN: Amlodipine 5 mg daily resumed on 04/13/25. Metoprolol, hydralazine 5 mg IV every 6 as needed
Sacrum Stage 2 Pressure ulcers:� Vitamin C, zinc, multivitamin.� Weight shifts in wheelchair and bed.� Roho cushion.� Pressure-relief boots.� Lotrimin to fungal rash over buttocks and inguinal region.�
Anemia: Likely multifactorial.� Continue to monitor.�
Thrombocytopenia: Continue to monitor. With platelets less than 50,000 recommend keeping therapies to bedside. If platelets less than 20,000 will use further caution with activity levels and hold therapy for platelets less than 10,000.�
Psych: Psychology consult.� Monitor mood, adjust medications as needed.�
Skin/ monitor for pressure sores/rashes/lesions.�
Pain: acetaminophen as needed.� Lidocaine patch
Bowel: Colace and Senna, PRN bisacodyl.�
Bladder/BPH/s/p stent: Esteves to remain
GI Prophylaxis: Pantoprazole�40 mg twice daily
DVT Prophylaxis: mechanical and Eliquis
Pulmonary: Incentive spirometry�
Safety: Continue to reinforce assistance with all transfers.�
Code Status:� Full code
Dispo�(date/plan/equipment needs): Home with family care.� Social history reviewed.�
�
Functional and Medical Goals:�Modified Independent with ADL�s, ambulation, transfers�
�
Discharge Destination:�Patient would benefit from acute inpatient rehabilitation once medically stable and cleared
�
Sacrum Stage 2 Pressure ulcers:�On santyl and lotrimin. Consider Vitamin C, zinc, multivitamin.� Weight shifts in wheelchair and bed.� Roho cushion.� Pressure-relief boots.� Lotrimin to fungal rash over buttocks and inguinal region.�
�
Blood Pressure: Would recommend checking orthostatic vitals as patient has been in bed, deconditioned and not moving much.
�
Thank you for allowing me to care for your patient. Please contact me with any questions or concerns.

Documented by User: Mahendra Murdock MD 04/22/25 22:38
Consultation - Medical
-
Referring Provider:�Trace Sanchez
Chief Complaint:�Debility
�
History of Present Illness:�This is a 79-year-old gentleman who follows with Dr. Muhammad, nephrology after donor renal transplant 2019 from [facility]. His transplant course has been complicated by development of nephrotic proteinuria
and recent cellular rejection December 2024. These episodes were treated with Solu-Medrol. His creatinine has quickly risen over the last several months from a creatinine around 2 now up to 4.4.
He presented to the ED for fever and malaise on 03/15/25. He was noted to be febrile, stable blood pressure with systolic of 100 lower than his home readings of 132. Creatinine of 4.7 with elevated lactate and white count. CT of the abdomen and
pelvis were performed with suspicion for pyelonephritis of the transplant.
He was noted to have hydronephrosis of the transplanted kidney on ultrasound and CT scan and esteves catheter was placed by urology on 03/15/2025 for Obstructive uropathy. S/P cystoscopy and stent placement
He developed Septic shock associated with acute kidney injury, lactic acidosis secondary to Klebsiella bacteremia likely secondary to urinary tract infection. Transplant kidney pyelonephritis with Klebsiella and E. faecalis. Immunosuppressed. on
Ceftriaxone now per infectious disease.
He development acute hypoxic respiratory failure requiring intubation 03/21-03/25.
Inability to tolerate HD secondary to severe with cardiogenic shock . s/p cardiac cath 04/02/25 - non-obstructive CAD. Pulmonary embolus within the posterior left lower lobe segmental pulmonary artery on CT Chest on 04/04/25 Short-segment left
axillary vein thrombus Seen on CT Chest done in preparation for aortic valve surgery -AC on hold due to bleeding issues
04/06 - s/p urgent TAVR with Post TTE showing stable valve, normal gradients, no effusion.
Developed Left Upper Extremity swelling post left mid forearm A-line placement with likely contained pseudoaneurysm based on imaging. Arterial US/angiogram 04/09/25 with active extravasation in left forearm with associated hematoma. Vascular
surgery consulted. Trying to avoid surgical intervention based on comorbidities/skin tissue integrity. Continue karl bandage wrap and compression.
04/12/2025- Repeated arterial duplex with no evidence of active extravasation or pseudoaneurysm,-Continued karl wrap compression of LUE with daily or PRN dressing change for forearm skin tear, wound care nursing consulted
Acute blood loss anemia secondary to multiple sources: LUE hematoma, melena , hematuria , epistaxis with patient requiring
-So far, 10 units of red blood cells this hospitalization (10th one was given in OR on 04/15/25)--noted gross hematuria from bleeding infeted transplant kidney s/p rt U stent
Hematology consulted for Thrombocytopenia-multifactorial including infection -HIT negative -platelets now normal -received 2U SDP during hospitalization, last 04/15.
04/21- patient back on anticoagulant- monitor for hematuria. Hgb - 9.1.
04/22 - nephrology note- creatinine stable at 1.4 and grossly nonoliguric with esteves, no labs today. Despite all of above he has stable renal function cr better than baseline. last belatacept dose was 04/09 (275mg/weight based-monthly dose),
continue pred/MMF
04/22-seen by speech for dysphagia. Currently on IDDSI 6I6. This was downgraded from regular solids in the past, as minimal intake noted. Intake increase and DHT able to be removed. Today, trial of regular solids and thin liquids. Adequate
mastication, bolus formation, transition noted with no oral residue. No overt signs of aspiration. Was recommended to upgrade to regular solids/thin liquids. Continuing general aspiration precautions. Meds as tolerated. Speech signing off.
Past Medical History:�Kidney transplant, aortic stenosis, s/p TAVR,
Procedure History:�TAVR�106/06, renal transplant at [facility] by Dr. Suzie BOOTHE�2018
Family History:�Mom - cancer, father smoker�emphysema
�
Social History:�
Functional Level Premorbidly:�Independent with all activities, does gardening and is active
Functional Level Currently:�Bed mobility�mod assist, max assist, transfer�mod assist x 2, patient attempted to side to wars head of bed, however unable to to do because of bilateral lower extremity weakness, poor dynamic standing with rolling
walker, bilateral knee instability, eating�set up, grooming�set up, toileting, lower extremity self-care�dependent,
�
Tobacco:�Denies�
Alcohol:�Denies�
Drug use:�Denies�
�
Lives with:�spouse
24-hour assistance available:�yes
Number of floors:�1
# steps to enter:�2
# steps to second floor:0
Potential First floor set up:�yes
Driving:�yes
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
�
�
Allergies:�
Allergy/AdvReac Type Severity Reaction Status Date / Time
No Known Drug Allergies Allergy - Verified 03/18/25 16:11
�
Review of Systems:�
Constitutional: (x) abNormal _fatigued
Eye: (x) Normal _
Ear/Nose/Throat: (x) Normal _
Respiratory: (x) Normal _
Cardiovascular: (x) abNormal _permanent A-fib on Eliquis, s/p TAVR
Gastrointestinal: (x) Normal _
Genitourinary: (x) abNormal _kidney transplant�2018, ELIZABETH was on dialysis, CR back to baseline, non oligoric with Esteves, BPH
Musculoskeletal: (x) abNormal _bilateral leg more then arm weakness, chronic back pain
Integumentary: (x) abNormal _ Bruising left arm
Neurologic: (x) Normal _
Psychiatric: (x) Normal _
Endocrine: (x) Normal _
Hematologic/Lymphatic: (x) abNormal _non occlusive DVT left axillary vein
Allergic/Immunologic: (x) Normal _
�
Medications:�
Active Current Visit Medication List
Category Date Time Status
Acetaminophen [Tylenol/Feverall] Med 03/18/25 21:09 Active
650 mg RECTAL Q4HPRN PRN
Acetaminophen [Tylenol] Med 03/18/25 21:09 Active
650 mg PO Q4HPRN PRN
Amlodipine [Norvasc] Med 04/13/25 10:51 Active
5 mg PO DAILY
Apixaban [Eliquis] Med 04/21/25 08:00 Active
5 mg PO BID
Artificial Tears (Pf) [Refresh Eye Drops (Pf)] Med 03/28/25 17:17 Active
1 drops OPHTH QIDPRN PRN
Aspirin Chewable [Low Strength Aspirin] Med 04/03/25 08:00 Active
81 mg PO DAILY
Benzocaine/Menthol [Anesthetic Lozenge] Med 04/08/25 11:35 Active
1 lozenge PO Q4HPRN PRN
CefTRIAXone [Rocephin] Med 04/18/25 12:00 Active
2,000 mg IV Q24H
Collagenase [Santyl Ointment] Med 04/15/25 17:00 Active
See Dose Instructions TOPICAL DAILY
Dextrose 50%-Water [Dextrose 50% Syringe] Med 03/29/25 09:18 Active
12.5 grams IV [id number] PRN
Diazepam [Valium] Med 03/31/25 10:32 Active
2 mg PO BID PRN
Docusate W/Senna [Senokot-S] Med 04/07/25 20:00 Active
1 tablet PO BID
Flush (0.9% Sodium Chloride) [Flush (Nss)] Med 03/19/25 23:00 Active
See Dose Instructions IV PER PROTOCOL
Glucagon [GlucaGen] Med 03/29/25 09:18 Active
1 mg IM PRN PRN
HydrALAZINE [Apresoline] Med 04/20/25 11:59 Active
5 mg IV Q6HPRN PRN
Insulin Aspart High Resistance [Novolog Flexpen-High Med 04/16/25 07:30 Active
Resistance]
See Protocol SC AC
Insulin Aspart Pen [Novolog Flexpen] Med 04/08/25 07:30 Active
3 units SC AC
Lidocaine [Lidocaine 4% Patch] Med 04/18/25 11:15 Active
1 patch TOPICAL DAILY
Mag Hydrox/Al Hydrox/Simeth [Maalox] Med 04/06/25 10:19 Active
30 ml PO Q4HPRN PRN
Melatonin Med 03/26/25 22:00 Active
5 mg PO HS
Metoprolol [Lopressor] Med 03/18/25 21:09 Active
25 mg PO BID
Miconazole Nitrate [Desenex/Mitrazol/Zeasorb] Med 04/07/25 01:00 Active
See Dose Instructions TOPICAL BID
Mycophenolate Mofetil [Cellcept] Med 03/30/25 20:00 Active
1,000 mg PO BID
Ondansetron Injectable [Zofran] Med 04/06/25 10:19 Active
4 mg IV Q8HPRN PRN
Oxycodone [Roxicodone] Med 04/12/25 13:05 Active
5 mg PO Q4HPRN PRN
Pantoprazole [Protonix] Med 04/19/25 20:00 Active
40 mg PO BID
Petrolatum/Mineral Oil [Hydrophor] Med 04/15/25 17:00 Active
See Dose Instructions TOPICAL DAILY
Polyethylene Glycol Powder [Miralax] Med 04/09/25 08:00 Active
17 grams PO DAILY
Prednisone [Deltasone] Med 04/05/25 08:00 Active
2.5 mg PO BID
Remove Patch [Remove Lidocaine Patch] Med 04/18/25 20:00 Active
See Dose Instructions REMOVE DAILY@1999
Sodium Chloride [[place], Saline Mist] Med 04/13/25 11:00 Active
See Dose Instructions NASAL TID
Sterile Water [Sterile Water For Injection] Med 04/18/25 12:00 Active
20 ml IV Q24H
�
Vitals:�
Temp Pulse Resp BP Pulse Ox
97.8 F 86 16 127/58 100
04/22/25 15:22 04/22/25 15:22 04/22/25 15:22 04/22/25 15:22 04/22/25 15:22
Height 6 ft
Actual Weight 71.838 kg
Body Mass Index (BMI) 21.5
�
Physical Exam:�
General Appearance/Observation: Well-developed, well-nourished male in no apparent distress.�Is a little short of breath at end of exam.
Pain/Comfort Assessment: none at the moment
Mood/Affect: Appropriate�
�
Integumentary/Operative Site:incision with dressing- right side of neck
�� Pressure Ulcer Evaluation: absent over heels.�Heel pads notes, dry scaly skin - bottom of feet, fungal nails
�� �� Other Type of Wound: Sacral pressure wound- per chart, not visualized
��
�
Eyes: Conjunctiva/Lids: normal���� Pupils: pupils equal round and reactive to light and Accommodation�
Ears/Nose/Throat: oral mucosa moist,� throat clear- bruises����������� Lips/Teeth/Gums: lips dry�
Neck: No muscle spasm or tenderness�
Cardiovascular: Heart: regular, no murmur�
Pulses: dorsalis pedis 2+ bilaterally�
Respiratory: Respiratory Effort/Chest Expansion: normal������� Auscultation: diminished BS bilaterally, Clear to auscultation bilaterally�
Gastrointestinal: abdomen not tender, no distension, normal abdominal bowel sounds
Genitourinary: Esteves�with concentrated urine
Extremities:�Edema: LUE- mild edema and with large bruise from hand to above elbow�Cyanosis: None�Trophic�changes: None
�
Neurology Exam:
Orientation: Alert, Oriented to self, Time, Place�
Memory: Intact for basic information
Comprehension: Intact
Two step command: Intact
Naming: Intact
Cranial Nerves:
�� CNII:�Pupillary light reflex: Intact����Visual Field: Intact
�� CN III, IV, : Extraocular muscles: Intact�
�� CN V:�Facial Sensation�at�Forehead: Intact,�Maxilla: Intact,�Mandible: Intact
�� CN VII:�Facial movement: Symmetric
�� CN VIII:�Hearing: GAMBELL right more so than left
�� CN IX/X:�Speech & swallow: Normal,�Position of Uvula: Midline
�� CN XI:�Shoulder shrug: Symmetric
�� CN XII:�Tongue protrusion: Midline
Sensory:
�� Light touch: Intact in bilateral upper and lower extremities
��
�
Reflexes:
�� Biceps: 2+ bilaterally
�� Brachioradialis: 2+ bilaterally
�� Triceps: 2+ bilaterally
�� Patellar: 2+ bilaterally
�� Achilles: absent bilaterally
�� Babinski: Down going bilaterally
�� Johnson: negative
Cerebellar: Dysmetria/Ataxia: Not tested
Musculoskeletal: Motor: (Manual muscle scale 0-5)�
Muscle SA EF WE EE FF FA HF KE DF EHL PF
Right� 4 5 4 3+ 5 4 3+ 4 4 4 4
Left 4 5 4 3+ 5 4 3+ 4 4 4 4
�
Tone: Normal in all extremities�
Range of Motion: UE Passively within normal limits
�
Lab Results:
Labs
WBC 7.5 10^3/uL (4.8-10.8) 04/21/25 05:56
RBC 3.04 10^6/uL (4.70-6.10) L 04/21/25 05:56
Hgb 9.1 g/dL (13.0-18.0) L 04/21/25 05:56
Hct 29.1 % (39.0-52.0) L 04/21/25 05:56
MCV 95.7 fL (80.0-94.0) H 04/21/25 05:56
MCH 29.9 pg (27.0-31.0) 04/21/25 05:56
MCHC 31.3 g/dL (33.0-37.0) L 04/21/25 05:56
RDW 16.4 % (11.5-14.5) H 04/21/25 05:56
Plt Count 179 10^3/uL (130-400) 04/21/25 05:56
Plt Count Comment Yes 03/27/25 03:27
MPV 10.5 fL (7.4-10.4) H 04/21/25 05:56
Abs Immat Gran (auto) 0.7 10^3/uL (0-0.05) H 04/14/25 20:51
Absolute Neuts (auto) 11.7 10^3/uL (1.4-6.5) H 04/14/25 20:51
Absolute Lymphs (auto) 0.1 10^3/uL (1.2-3.4) L 04/14/25 20:51
Absolute Monos (auto) 0.9 10^3/uL (0.1-0.6) H 04/14/25 20:51
Absolute Eos (auto) 0.2 10^3/uL (0-0.7) 04/14/25 20:51
Absolute Basos (auto) 0.1 10^3/uL (0-0.2) 04/14/25 20:51
CBC Comment Cancelled 04/14/25 20:01
Total Counted 100 03/27/25 03:27
Immature Gran % 4.8 % (0-0.5) H 04/14/25 20:51
Neutrophils % 85.9 % (42.2-75.2) H 04/14/25 20:51
Lymphocytes % 0.7 % (20.5-51.1) L 04/14/25 20:51
Monocytes % 6.7 % (1.7-9.3) 04/14/25 20:51
Eosinophils % 1.5 % (0-6) 04/14/25 20:51
Basophils % 0.4 % (0-2) 04/14/25 20:51
Nucleated RBC % 0 % (-) 04/14/25 20:51
Abs Neuts (Manual) 10.6 10^3/uL (1.4-6.5) H 03/27/25 03:27
Segmented Neutrophils 82 % (42-75) H 03/27/25 03:27
Band Neutrophils 6 % (0-3) H 03/27/25 03:27
Lymphocytes (Manual) 3 % (20-51) L 03/27/25 03:27
Monocytes (Manual) 5 % (2-9) 03/27/25 03:27
Metamyelocytes 1 % (-) 03/27/25 03:27
Myelocytes 3 % (-) 03/27/25 03:27
Nucleated RBCs 1 (-) 03/25/25 04:23
Normal RBC Morphology No 03/27/25 03:27
Polychromasia 1+ 03/27/25 03:27
Hypochromasia 1+ 03/25/25 04:23
Poikilocytosis 1+ 03/26/25 03:21
Anisocytosis 1+ 03/20/25 05:07
Macrocytosis 1+ 03/27/25 03:27
Target Cells 1+ 03/25/25 04:23
Tear Drop Cells Slight 03/21/25 03:29
Ovalocytes Slight 03/21/25 03:29
[place] Cells 1+ 03/26/25 03:21
Acanthocytes (Spur) Slight 03/21/25 03:29
Rouleaux Slight 03/21/25 03:29
ESR 87 mm/hour (0-20) H 04/11/25 03:29
Retic Count 2.4 % (0.4-2.8) 04/11/25 03:29
PT 14.7 Sec (11.4-14.6) H 04/16/25 04:57
INR 1.17 04/16/25 04:57
APTT 28.9 Sec (23.4-35.0) 04/16/25 04:57
Fibrinogen 412 MG/DL (199-459) 04/16/25 04:57
D-Dimer 2.25 ug/mlFEU (0.00-0.50) H 03/24/25 04:05
pH 7.38 (7.35-7.45) 03/26/25 03:21
pCO2 31 mmHg (35-48) L 03/26/25 03:21
pO2 87 mmHg (83-108) 03/26/25 03:21
HCO3 18.3 mmol/L (21-28) L 03/26/25 03:21
Base Excess -6.1 mmol/L 03/26/25 03:21
ABG O2 Sat (Measured) 98.3 % (94-98) H 03/26/25 03:21
POC ABG O2 Sat (Calc) 99.8 % (94-98) H 04/06/25 12:10
VBG pH 7.34 (7.32-7.43) 03/30/25 11:36
VBG pCO2 37 mmHg (35-48) 03/30/25 11:36
VBG pO2 79 mmHg (30-50) H 03/30/25 11:36
VBG HCO3 20.0 mmol/L (22-27) L 03/30/25 11:36
VBG O2 Sat (Phillip) 96.7 % 03/30/25 11:36
VBG Base Excess -5.3 mmol/L (-4 to +4) 03/30/25 11:36
VBG O2 Therapy Ra 03/30/25 11:36
Sodium 136 mMOL/L (136-145) 03/25/25 04:23
Potassium 4.0 mMOL/L (3.5-5.1) 03/25/25 04:23
O2 Delivery Level 40 03/26/25 03:21
Sodium 135 mmol/L (135-145) 04/21/25 05:56
Potassium 4.3 mmol/L (3.5-5.1) 04/21/25 05:56
Chloride 108 mmol/L (98-107) H 04/21/25 05:56
Carbon Dioxide 25 mmol/L (22-30) 04/21/25 05:56
BUN 50 mg/dl (9-20) H 04/21/25 05:56
Creatinine 1.4 mg/dL (0.7-1.3) H 04/21/25 05:56
Estimated Creat Clear 43 ml/min 04/21/25 05:56
eGFR 51.13 04/21/25 05:56
Glucose 110 mg/dl (70-99) H 04/21/25 05:56
Hemoglobin A1c 5.8 % (4.0-5.9) 03/30/25 02:36
Lactic Acid 2.0 mmol/L (0.7-2.0) 04/14/25 20:51
Calcium 9.0 mg/dl (8.4-10.2) 04/21/25 05:56
Ionized Calcium Cancelled 03/29/25 17:00
Phosphorus 6.0 mg/dl (2.5-4.5) H 04/10/25 03:02
Magnesium 1.6 mg/dl (1.6-2.3) 04/21/25 05:56
Iron 36 ug/dl (49-181) L 03/26/25 08:33
TIBC 165 ug/dl (261-462) L 03/26/25 08:33
% Saturation 21 % (20-50) 03/26/25 08:33
Ferritin 1550.0 ng/ml (17.9-464.0) H 03/19/25 04:07
Erythropoietin 28 mU/mL (4-27) H 04/11/25 03:29
Total Bilirubin 0.8 mg/dl (0.2-1.3) 04/11/25 03:29
Direct Bilirubin 0.5 mg/dl (0.0-0.4) H 04/11/25 03:29
AST 40 U/L (17-59) 04/11/25 03:29
ALT 32 U/L (0-50) 04/11/25 03:29
Alkaline Phosphatase 85 U/L (38-126) 04/11/25 03:29
Lactate Dehydrogenase 389 U/L (120-246) H 04/09/25 11:40
C-Reactive Protein Cancelled 04/08/25 16:00
Lbo-J-Xwkurvjuwly Pept 12810 pg/ml 04/08/25 16:55
Total Protein 4.2 g/dl (6.3-8.2) L 04/11/25 03:29
Albumin 2.1 g/dl (3.5-5.0) L 04/11/25 03:29
Triglycerides 220 mg/dl (10-149) H 03/27/25 03:27
Whole Bld Vitamin B1 198 nmol/L (70-180) H 04/08/25 09:17
Vitamin B12 939 pg/ml (239-931) H 04/08/25 05:24
Folate 14.3 ng/ml (2.76-20) 03/19/25 04:07
Urine Color [place] 04/15/25 10:17
Urine Clarity Slightly cloudy (Clear) 04/15/25 10:17
Urine pH 6.5 (5.0-9.0) 04/15/25 10:17
Ur Specific [place] 1.005 (<1.030) 04/15/25 10:17
Urine Ketones Negative (Negative) 04/15/25 10:17
Ur Occult Blood Reflex 4+ (Negative) A 04/15/25 10:17
Urine Nitrite (Reflex) Negative (Negative) 04/15/25 10:17
Urine Bilirubin Negative (Negative) 04/15/25 10:17
Urine Urobilinogen Negative (Neg - 1+) 04/15/25 10:17
Leukocyte Esterase Rfl 3+ (Negative) A 04/15/25 10:17
Urine RBC >100 /HPF (0-2) A 04/15/25 10:17
Urine WBC (Reflex) 16-20 /HPF (0-5) A 04/15/25 10:17
Ur Squamous Epith Cells 3-5 /LPF (Few) 04/15/25 10:17
Urine Bacteria (Reflex) Moderate (Negative) A 04/15/25 10:17
Urine Glucose Negative (Negative) 04/15/25 10:17
Urine Albumin (Reflex) 3+ (Neg - Trace) A 04/15/25 10:17
Random Vancomycin 19.5 ug/ml 04/16/25 04:57
Hep-Induced Plt Ab [place] 04/09/25 11:40
Hep Bs Antigen Negative (Negative) 03/20/25 05:07
Hep Bs Antibody Negative 03/20/25 05:07
Hep B Core Total Ab Negative (Negative) 03/20/25 05:07
Hepatitis C Antibody Negative (Negative) 03/20/25 05:07
SARS-CoV-2 Antigen Negative (Negative) 04/14/25 20:01
Specimen Type Arterial 04/06/25 12:10
POC pH 7.27 (7.35-7.45) L 04/06/25 12:10
POC Base Excess -3.9 mmol/L 04/06/25 12:10
POC pO2 271 mmHg (83-108) H 04/06/25 12:10
POC pCO2 49 mmHg (35-48) H 04/06/25 12:10
POC HCO3 23 mmol/L (21-28) 04/06/25 12:10
POC Glucose 115 mg/dl (70-99) H 04/22/25 17:05
POC Glucose 96 mg/dl (70-99) 04/06/25 12:10
POC Sodium 138 mmol/L (136-145) 04/06/25 12:10
POC Potassium 4.6 mmol/L (3.5-5.1) 04/06/25 12:10
POC Ionized Calcium 1.21 mmol/L (1.15-1.33) 04/06/25 12:10
POC Lactate < 0.30 mmol/L (0.36-0.75) L 04/06/25 12:10
POC ACT Low Range 313 Seconds (116-155) H 04/06/25 11:30
POC Hemoglobin Calc 7.7 04/06/25 12:10
POC Hematocrit 23 % PCV (42-52) L 04/06/25 12:10
POC Hemodilution Yes 04/06/25 12:10
Blood Type A NEG 04/14/25 04:58
ABO Group Confirm Cancelled 03/19/25 04:07
Antibody Screen Negative (Negative) 04/14/25 04:58
Crossmatch IS Only See Detail 04/14/25 04:58
�
Diagnostic Results:�as per HPI�
04/15/25 CT a/p:
1. Severe hydronephrosis of transplant kidney, unchanged.
2. Very small volume of gas within the transplant renal collecting system, decreased as compared with the previous exam. As above, there is gas in the transplant ureter including along the anastomosis with the urinary bladder, therefore both
infection and gas related to Esteves catheter remain considerations.
3. Fluid fluid level within the renal transplant collecting system. This could be related to excretion of contrast from previous procedure. Hemorrhage is also possible.
4. Bilateral small pleural effusions. Pulmonary fibrosis as seen previously. Decreased pneumomediastinum.
5. Small left groin hematoma related to previous transcatheter aortic valve replacement.
6. Dilated gallbladder. No abnormal wall thickening or pericholecystic fluid identified.
04/14/25 CXR: Stable diffuse interstitial prominence likely reflects underlying chronic interstitial lung disease
04/12/25 LUE arterial study: Patent left radial artery with no evidence of pseudoaneurysm. Previously visualized area of abnormality in the mid radial artery is not seen on today's examination
04/09/25 LUE Angio: Small foci of extravasated contrast material seen within the soft tissues at the level of the mid forearm adjacent to the radial artery. Consistent with mild active hemorrhage. Generalized edema. A focal soft tissue collection is
difficult to identify with certainty.
03/31/25 CXR: Slightly improved pulmonary interstitial markings suggesting resolving interstitial edema. Pneumomediastinum without significant change.
03/28/[address]: Mild pneumomediastinum, with superior extension into the fat at the base of the neck, as well as at the posterior and lateral aspect of the right mid to upper thorax. Diffuse bilateral interstitial and groundglass opacity. This
could be related to fluid associated with interstitial and pulmonary edema related to volume overload or congestive heart failure. Alternatively, findings may be infectious in nature related to atypical or viral pneumonitis. No focal dense
consolidation.
03/20/25 CXR: Grossly stable severe diffuse bilateral interstitial and airspace disease which may reflect combination of pulmonary edema and pneumonia. Cannot rule out component of underlying chronic interstitial lung disease.
03/19/25 CXR: Progressive parenchymal disease process, as described. Differential includes progressive congestive heart failure with pulmonary edema versus diffuse bilateral pneumonia, right greater than left.
03/18/25 CT a/p: Severe acute edema and inflammation around the right lower quadrant renal transplant which is new from 12/17/2024. Severe hydronephrosis of the right intrarenal collecting system and right renal pelvis which has increased. ACUTE
PYELONEPHRITIS of the RIGHT LOWER QUADRANT RENAL TRANSPLANT is considered most likely. Acute infarction of the renal transplant is a less likely diagnostic possibility. Severe diffuse urinary bladder wall thickening with surrounding perivesical
inflammation which appears new from 12/17/2024 suggesting SEVERE ACUTE CYSTITIS. Esteves catheter in the urinary bladder. Mildly enlarged prostate gland.
�
Assessment:
79 y/o R-handed M PMH (ESRD S/P kidney transplant 2019, HTN, HLD, A-fib on Eliquis, urinary retention status post catheter placement several days prior to admission) with 02/15/25 sepsis secondary to transplant pyelonephritis, acute renal failure,
acute hypoxic respiratory failure, inability to tolerate HD secondary to severe and now s/p TAVR 04/06 --with ADL and ambulatory dysfunction.
�
Plan�
PM&R�PT/OT to increase independence with ADLs, improve balance, coordination, endurance, strength, mobility, community reintegration, decreased burden of care on others and family education.�
�
Left Upper Extremity Hematoma: Likely contained pseudoaneurysm -- status post left mid forearm A-line placement, then forearm swelling, then found to have likely contained pseudoaneurysm based on imaging
-arterial US/angiogram 04/09/25 with active extravasation in left forearm with associated hematoma
-Repeat arterial duplex 04/12/25 -- with no evidence of active extravasation or pseudoaneurysm
-Continue karl wrap for gentle compression at the LUE -- edema has improved
-Continue daily or PRN dressing change for forearm skin tear, wound care nursing consulted
Acute blood loss anemia secondary to multiple sources: LUE hematoma, melena, hematuria, epistaxis
- Hgb stable, received 10 units of red blood cells this hospitalization (10th one was given in OR on 04/15/25)
Severe aortic stenosis with cardiogenic shock status post TAVR on 04/06
- RHC 03/30 indicated aortic stenosis as source of low cardiac output/cardiogenic shock.
- s/p cardiac cath 04/02/25 - non-obstructive CAD
- Post TAVR CHRISTOPHER shows stable valve, normal gradients, no effusion.
ELIZABETH requiring hemodialysis
Creatinine stable at 1.4 today nonoliguric with esteves.
Hydronephrosis of right transplanted kidney
- Obstructive uropathy of transplant kidney, Esteves placed 03/15/25
- Maintain Esteves catheter
-S/P cystoscopy and stent placement
Acute hypoxic respiratory failure :requiring intubation 03/21-03/25- breathing on room air now. Chest xray- 04/14- Stable diffuse interstitial prominence likely reflects underlying chronic interstitial lung disease.
Septic shock associated with acute kidney injury, lactic acidosis secondary to Klebsiella bacteremia likely secondary to urinary tract infection
Transplant kidney pyelonephritis with Klebsiella and E. faecalis. Immunosuppressed
- Ceftriaxone per ID
- At time of discharge, transition to po cipro 500mg po bid through 04/29.
Pulmonary embolus within the posterior left lower lobe segmental pulmonary artery on CT Chest on 04/04/25
Short-segment left axillary vein thrombus
-Seen on CT Chest done in preparation for aortic valve surgery
-Eliquis resumed on 04/21
Nonocclusive thrombus within the right cephalic vein within the distal aspect of the upper arm
Occlusive thrombus within the cephalic vein in the proximal forearm
-Conservative management for superficial venous thrombosis
Acute blood loss anemia with baseline chronic macrocytic anemia
Melena on 04/11-04/12, Epistaxis ,Hematuria
-S/p 10 units of PRBCs so far (10th unit was given perioperatively on 04/15/25)
-GI saw patient on 04/12/25, no endoscopy given patient's current condition, GI signed off
-Pantoprazole BID
Renal Transplant: mycophenolate, prednisone immunosuppressive therapies
HTN: Amlodipine 5 mg daily resumed on 04/13/25. Metoprolol, hydralazine 5 mg IV every 6 as needed
Sacrum Stage 3 Pressure ulcers:� Santyl to slough. Consider Vitamin C, zinc, multivitamin.� Weight shifts in wheelchair and bed.� Roho cushion.� Pressure-relief boots.� Antifungal powder to buttocks per wound care.�
Psych: Psychology consult.� Monitor mood, medications as needed.�
Pain: acetaminophen as needed.� Lidocaine patch
Bowel: Colace and Senna, PRN bisacodyl.�
GI Prophylaxis: Pantoprazole�40 mg twice daily
DVT Prophylaxis: mechanical and Eliquis
Pulmonary: Incentive spirometry�
Safety: Continue to reinforce assistance with all transfers.�
Code Status:� Full code
Dispo�(date/plan/equipment needs): Home with family care.� Social history reviewed.�
Functional and Medical Goals:�Modified Independent with ADL�s, ambulation, transfers�
Discharge Destination:�Patient would benefit from acute inpatient rehabilitation once medically stable and cleared
�
-Blood Pressure: Would recommend checking orthostatic vitals as patient has been in bed, deconditioned and not moving much.
Attending Statement: I saw and examined the patient today.� Reviewed care plan with patient, therapy, nursing, and physician camp assistant.� I agree with the above subjective and physical exam, and plan as documented by KALPANA Wolfe with adjustments
made as necessary. Total of 80 minutes were spent with the patient preparing for the evaluation, obtaining history, performing examination and evaluation, counseling, data review, case management, care coordination, order editor, and EMR
documentation.
Thank you for allowing me to care for your patient. Please contact me with any questions or concerns.
Consultation
-
Date/Time Consultation Requested: 04/20/25
Date/Time Consultation Performed: 04/22/25
Requesting Provider: Dr. Trace Roman
Performing Provider: Dr. Mahendra Murdock
Reason for Consultation: Debility
[2025-04-21] MEDS: REMOVE LIDOCAINE PATCH 1 PATCH REMOVE (20:14)
[2025-04-21 20:45] LABS: Glucose - Point of Care 89 mg/dl (70-99)
[2025-04-21] MEDS: MELATONIN 5 MG PO (21:48)
[2025-04-21] MEDS: OCEAN, SALINE MIST 1 SPRAYS NASAL (21:52)
[2025-04-22] MEDS: ZOFRAN 4 MG IV (00:44)
[2025-04-22 03:17] VITALS: BP 169/85
[2025-04-22] MEDS: APRESOLINE 5 MG IV (04:05)
[2025-04-22] MEDS: ROXICODONE 5 MG PO ×2 (04:18→20:16)
[2025-04-22 06:00] VITALS: BMI 21.5
--- NOTE | 2025-04-22 07:25 | W.PN.URO.CBU ---
Today's Communication / Plan
-
continue esteves and stent
observe for hematuria
Assessment / Plan
-
hx of renal transplant with hydro of transplant kidney
urinary retention
Klebsiella UTI- urosepsis
hematuria -- resolved
hydro of transplant- s/p stent placement
pt better
on asa- platelets recovering-back on eliquis
pt's infx and renal parameters have improved dramatically with stent in place- he also has baseline urinary retention- will need to be discharged with esteves and stent and f/u at transplant center to discuss options for ongoing management of both
issues
at time of discharge- should schedule outpt appoitment with dr lane for esteves exchange
Diagnosis
-
Date of Service: April 22, 2025
-
Patient Urologic Diagnosis:
hx of renal transplant
urinary retention
hydro of renal transplant
UTI
hematuria
UTI AND HEMATURIA DUE TO OBSTRUCTED TRANSPLANT
s/p cysto/transplant stent placement/fulguration 04/15
Subjective
-
pt stable
urine remains yellow with restart of eliquis
Objective
-
Vital Signs
Temp Pulse Resp BP Pulse Ox
97.6 F 85 24 169/85 99
04/22/25 03:17 04/22/25 03:17 04/22/25 03:17 04/22/25 04:05 04/22/25 03:17
Intake and Output
04/21/25 04/22/25 04/23/25
06:59 06:59 06:59
Intake Total 480 / 480 450 / 450
Output Total 1000 / 1000 2200 / 2200
Balance -520 / -520 -1750 / -1750
Intake:
Oral fluids 480 / 480 450 / 450
Output:
Urine, Esteves 1000 / 1000 1700 / 1700
Urine, Voided 500 / 500
Laboratory Results
04/21/25 05:56
04/21/25 05:56
Physical Exam
-
General - no acute distress
Genitalia - esteves in place/ NAD
[2025-04-22 08:07] LABS: Glucose - Point of Care 92 mg/dl (70-99)
[2025-04-22] MEDS: ELIQUIS 5 MG PO ×2 (08:20→19:59)
[2025-04-22] MEDS: DELTASONE 2.5 MG PO ×2 (08:20→19:58)
[2025-04-22] MEDS: PROTONIX 40 MG PO ×2 (08:20→19:58)
[2025-04-22] MEDS: SENOKOT-S 1 TABLET PO ×2 (08:20→19:58)
[2025-04-22] MEDS: LIDOCAINE 4% PATCH 1 PATCH TOPICAL (08:20)
[2025-04-22] MEDS: LOW STRENGTH ASPIRIN 81 MG PO (08:20)
[2025-04-22] MEDS: MIRALAX 17 GRAMS PO (08:20)
[2025-04-22] MEDS: SANTYL OINTMENT 1 APPLIC TOPICAL (08:20)
[2025-04-22] MEDS: OCEAN, SALINE MIST 1 SPRAYS NASAL (08:20)
[2025-04-22] MEDS: DESENEX/MITRAZOL/ZEASORB 1 APPLIC TOPICAL ×2 (08:21→20:00)
[2025-04-22] MEDS: LOPRESSOR 25 MG PO ×2 (08:21→19:58)
[2025-04-22 08:27] VITALS: BP 133/66
[2025-04-22] MEDS: HYDROPHOR 1 APPLIC TOPICAL (08:34)
[2025-04-22] MEDS: NOVOLOG FLEXPEN-HIGH RESISTANCE 1 UNITS SC ×3 (08:35→17:06)
[2025-04-22] MEDS: NOVOLOG FLEXPEN 3 UNITS SC ×3 (08:35→17:06)
[2025-04-22] MEDS: NORVASC 5 MG PO (08:41)
[2025-04-22] MEDS: CELLCEPT 1000 MG PO ×2 (08:48→20:16)
--- NOTE | 2025-04-22 10:30 | CM ---
Chart reviewed. PM&R pending at this time
[facility] pending decision, requesting PM&R assessment
Update to [facility] to inform PM&R has been ordered
Plan: Hopeful d/c to [facility] if they accept
[2025-04-22 11:47] VITALS: BP 140/62
[2025-04-22] MEDS: ROCEPHIN 2000 MG IV (11:51)
[2025-04-22] MEDS: STERILE WATER FOR INJECTION 20 ML IV (11:51)
--- NOTE | 2025-04-22 12:33 | W.PN.HOSP.TC ---
Today's Communication/Plan
-
Continue current treatments
Continue with PT OT
Await PMNR evaluation
Consult speech to see if he can be upgraded to solid diet
Assessment / Plan
Assessment / Plan
Assessment/Plan
79-year-old with history of end-stage renal disease status post kidney transplant 2019 on antirejection medications, hypertension, hyperlipidemia, atrial fibrillation on Eliquis, urinary retention status post catheter placement several days prior to
admission presenting to the emergency department with fever and chills as well as weakness, admitted for sepsis secondary to transplant pyelonephritis, acute renal failure of transplanted kidney with development of acute hypoxic respiratory failure,
inability to tolerate HD secondary to severe and now s/p TAVR 04/06.

Severe aortic stenosis with cardiogenic shock status post TAVR on 04/06
- RHC 03/30 indicated aortic stenosis as source of low cardiac output/cardiogenic shock.
- s/p cardiac cath 04/02/25 - non-obstructive CAD
- Decision made for more urgent TAVR
- Post TTE shows stable valve, normal gradients, no effusion.
-Cardiology signed off
ELIZABETH requiring hemodialysis
Creatinine stable at 1.4 today ;nonoliguric. Holding on further hemodialysis and following clinically.
Continue with pred/MMF
Hydronephrosis of transplanted kidney
- Obstructive uropathy of transplant kidney, Disla placed 03/15/25
- Maintain Disla catheter .No hematuria
-S/P cystoscopy and stent placement
Acute hypoxic respiratory failure requiring intubation 03/21-03/25
Bilateral small pleural effusions and as seen on previous imaging, pulmonary fibrosis
Resolved
Septic shock associated with acute kidney injury, lactic acidosis secondary to Klebsiella bacteremia likely secondary to urinary tract infection
Transplant kidney pyelonephritis with Klebsiella and E. faecalis
Immunosuppressed
Resolved
CW ABX per ID - on Ceftriaxone now
Pulmonary embolus within the posterior left lower lobe segmental pulmonary artery on CT Chest on 04/04/25
Short-segment left axillary vein thrombus
-Seen on CT Chest done in preparation for aortic valve surgery
-AC on hold due to bleeding issues
-Urology ok to start AC
Nonocclusive thrombus within the right cephalic vein within the distal aspect of the upper arm
Occlusive thrombus within the cephalic vein in the proximal forearm
-Conservative management for superficial venous thrombosis
Left Upper Extremity Hematoma
Likely contained pseudoaneurysm -- status post left mid forearm A-line placement, then forearm swelling, then found to have likely contained pseudoaneurysm based on imaging
-arterial US/angiogram 04/09/25 with active extravasation in left forearm with associated hematoma
-appreciate Vascular surgery input - based on comorbidities/skin tissue integrity trying to avoid surgical intervention - continue karl bandage wrap and compression
-Repeat arterial duplex 04/12/25 -- with no evidence of active extravasation or pseudoaneurysm
-Continue karl wrap for gentle compression at the LUE -- edema has improved
-Continue PRN dressing change for forearm skin tear
Acute blood loss anemia secondary to multiple sources: LUE hematoma, melena , hematuria , epistaxis
-So far, patient has received 10 units of red blood cells this hospitalization (10th one was given in OR on 04/15/25)
-H&H stable
Thrombocytopenia
-HIT panel testing was negative
-appreciate Heme eval
-Normalized platelet
Acute blood loss anemia with baseline chronic macrocytic anemia
Melena on 04/11-04/12
Epistaxis
Hematuria developed on 04/11/25-04/12/25
-Status post total of 10 units of PRBCs so far (10th unit was given perioperatively on 04/15/25)
-GI saw patient on 04/12/25, no endoscopy given current patient's current condition, GI has signed off
-Continue PPI BID
Permanent Atrial Fibrillation
- Rate controlled
-Urology okay to resume Eliquis from their end starting tomorrow
-Continue with beta-armando
Hypertension
-Home Amlodipine 5 mg daily resumed on 04/13/25
-Holding Losartan for now given tenuous kidney situation with urinary bleeding
Sacrum Stage 2 Pressure Injury
-Wound care
Resolved issues
TME
Epistaxis
Ex-Smoker
DVT Prophylaxis: SCDs only given bleeding.
Diet: Tolerating oral diet
Code status - Full Code
PMR consulted
Medically stable for DC
Anticipated Discharge: 24 - 48 hours
Subjective/Interval History
-
Date of Service: April 22, 2025
No overnight events.
Was sleeping comfortably but easily arousable. Denies any specific complaints.
Denies any chest pain or shortness of breath. No nausea vomiting. Tolerating diet.
No dizziness.
Objective Data
-
Vital Signs:
Vital Signs
Temp Pulse Resp BP Pulse Ox
97.8 F 81 16 140/62 99
04/22/25 11:47 04/22/25 11:47 04/22/25 11:47 04/22/25 11:47 04/22/25 11:47
I&O
04/21/25 04/22/25 04/23/25
06:59 06:59 06:59
Intake Total 480 / 480 450 / 450 240 / 240
Output Total 1000 / 1000 2200 / 2200 400 / 400
Balance -520 / -520 -1750 / -1750 -160 / -160
Physical Exam
-
General: Comfortable
Respiratory: Non Labored Respirations; Negative Accessory Resp Muscle Use
Cardiac: Regular Rhythm and S1/S2; Negative Tachycardic
GI: Soft and Nontender
Neuro: AO x 3
Psych: Calm; Negative Confused
Data Reviewed
-
Labs: Labs Reviewed by me
[2025-04-22 12:36] LABS: Glucose - Point of Care 110 mg/dl (70-99)
[2025-04-22] MEDS: TYLENOL 650 MG PO (14:35)
[2025-04-22 15:22] VITALS: BP 127/58
--- NOTE | 2025-04-22 15:27 | W.PN.NEPH.PH ---
Today's Communication / Plan
-
follow labs
Assessment/Plan
-
This is a 79-year-old gentleman who follows in our office with Dr. Muhammad after donor renal transplant 2019 from [facility]. His transplant course has been complicated by development of nephrotic range proteinuria as well as recent
cellular rejection December of this year. The episodes treated with Solu-Medrol. His creatinine has risen quickly over time in the last several months. He has gone from a creatinine around 2 now up to 4.4. He was noted to have hydronephrosis of
the transplanted kidney recently on ultrasound as well as CT scan. Esteves catheter was placed by urology a few days ago. His appetite has been poor as of late. Recently he also developed fever and malaise and this has brought him to the emergency
room. He was noted to be febrile in the ER. Blood pressure was stable though lower than his home readings of 132. He was 100 systolic in the ER. Creatinine was 4.7 with elevated lactate level and elevated white count. CT of the abdomen and
pelvis were performed with suspicion for pyelonephritis of the transplant. We are asked to assist in management of his renal issues.
Assessment
Sepsis syndrome, possible pyelonephritis
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
donor renal transplant with FSGS, recent T-cell rejection
Obstructive uropathy, Esteves catheter in place
ELIZABETH..
Anemia
Hyponatremia
lactic acidosis
TAVR 04/06/25
LUE arterial oozing
CHEMISTRY SPECIALIST-He had been making outpatient arrangements for eventual ESRD and transplant evaluation at [place]/previously on peritoneal dialysis prior to transfer
Plan
creatinine stable at 1.4 and grossly nonoliguric, no labs today
s/p OR on 04/15-noted gross hematuria from bleeding infeted transplant kidney s/p rt U stent
abx per ID for kleb bacteremia
back on AC 04/21 monitor for hematuria
monitor h/h, hb stable 9.1
Despite all of above he has stable renal function cr better than baseline and non oliguric
last belatacept dose was 04/09 (275mg/weight based-monthly dose), continue pred/MMF
tolerating diet
needs rehab
-
-
Date of Service: April 22, 2025
CC / HPI / ROS
-
Chief Complaint:
Sepsis
History of Present Illness:
ELIZABETH/Cr at 1.4-stable, no labs today
BP stable
Hgb better at 9.1, last PRBC 04/15
no gross hematuria
Review of Systems:
non oliguric with esteves
eating well
no cp, no sob at rest
Labs
-
Labs:
WBC 7.5 10^3/uL (4.8-10.8) 04/21/25 05:56
RBC 3.04 10^6/uL (4.70-6.10) L 04/21/25 05:56
Hgb 9.1 g/dL (13.0-18.0) L 04/21/25 05:56
Hct 29.1 % (39.0-52.0) L 04/21/25 05:56
Plt Count 179 10^3/uL (130-400) 04/21/25 05:56
Sodium 135 mmol/L (135-145) 04/21/25 05:56
Potassium 4.3 mmol/L (3.5-5.1) 04/21/25 05:56
Chloride 108 mmol/L (98-107) H 04/21/25 05:56
Carbon Dioxide 25 mmol/L (22-30) 04/21/25 05:56
BUN 50 mg/dl (9-20) H 04/21/25 05:56
Creatinine 1.4 mg/dL (0.7-1.3) H 04/21/25 05:56
eGFR 51.13 04/21/25 05:56
Glucose 110 mg/dl (70-99) H 04/21/25 05:56
Calcium 9.0 mg/dl (8.4-10.2) 04/21/25 05:56
Phosphorus 6.0 mg/dl (2.5-4.5) H 04/10/25 03:02
Bnh-T-Cjuqxwsandc Pept 33439 pg/ml 04/08/25 16:55
Albumin 2.1 g/dl (3.5-5.0) L 04/11/25 03:29
Physical Exam
-
Vital Signs:
Vital Signs
Temp Pulse Resp BP Pulse Ox
97.8 F 86 16 127/58 100
04/22/25 15:22 04/22/25 15:22 04/22/25 15:22 04/22/25 15:22 04/22/25 15:22
Cardiovascular:: Regular rate and rhythm
Respiratory:: Bilateral: CTA (decreased BS)
Lung Excursion:: Normal
Abdomen:: Nontender and Soft
Bowel Sounds:: Normal
Extremity Edema:: None: Bilateral:
Esteves Catheter: Yes
Other Findings::
left UE echymosis noted-improving edema
--- NOTE | 2025-04-22 16:29 | PTOTSP ---
Speech Language Pathology
Pt seen for dysphagia tx. Currently on IDDSI 6. This was downgraded from regular solids in the past, as minimal intake noted. Questioned whether related to fatigue with regular solids. Intake increased and DHT able to be removed. This date,
trialed regular solids and thin liquids. Adequate mastication, bolus formation, and A-P transit noted with no oral residue. No overt signs of aspiration.
Recommend:
(1) Upgrade to regular solids/thin liquids
(2) General aspiration precautions
(3) Meds as tolerated
(4) CLOCKSMITH to sign off. Please reconsult as indicated
[2025-04-22] MEDS: OCEAN, SALINE MIST 50 SPRAYS NASAL (17:06)
[2025-04-22 17:09] LABS: Glucose - Point of Care 115 mg/dl (70-99)
[2025-04-22 19:38] VITALS: BP 118/63
[2025-04-22] MEDS: REMOVE LIDOCAINE PATCH 1 PATCH REMOVE (19:59)
[2025-04-22 21:24] LABS: Glucose - Point of Care 135 mg/dl (70-99)
[2025-04-22] MEDS: MELATONIN 5 MG PO (22:38)
[2025-04-22] MEDS: OCEAN, SALINE MIST NASAL (22:38)
[2025-04-22 22:44] VITALS: BP 131/66
[2025-04-23] VITALS (7 sets, daily range): BP systolic 130–170; BP diastolic 70–83; BMI 20.3
[2025-04-23] MEDS: ZOFRAN 4 MG IV (01:42)
[2025-04-23] MEDS: VALIUM 2 MG PO ×2 (05:44→22:35)
[2025-04-23 08:27] LABS: Glucose - Point of Care 110 mg/dl (70-99)
[2025-04-23] MEDS: DESENEX/MITRAZOL/ZEASORB 1 APPLIC TOPICAL ×2 (09:03→20:06)
[2025-04-23] MEDS: SANTYL OINTMENT 1 APPLIC TOPICAL (09:04)
[2025-04-23] MEDS: HYDROPHOR TOPICAL (09:04)
[2025-04-23] MEDS: CELLCEPT 1000 MG PO ×2 (09:05→20:06)
[2025-04-23] MEDS: NOVOLOG FLEXPEN 3 UNITS SC (09:06)
[2025-04-23] MEDS: NOVOLOG FLEXPEN-HIGH RESISTANCE 1 UNITS SC (09:06)
[2025-04-23] MEDS: LIDOCAINE 4% PATCH 1 PATCH TOPICAL (09:07)
[2025-04-23] MEDS: OCEAN, SALINE MIST 1 SPRAYS NASAL (09:08)
[2025-04-23] MEDS: SENOKOT-S 1 TABLET PO ×2 (09:09→20:06)
[2025-04-23] MEDS: MIRALAX 17 GRAMS PO (09:09)
[2025-04-23] MEDS: LOPRESSOR 25 MG PO ×2 (09:09→20:05)
[2025-04-23] MEDS: DELTASONE 2.5 MG PO ×2 (09:09→20:06)
[2025-04-23] MEDS: NORVASC 5 MG PO (09:09)
[2025-04-23] MEDS: PROTONIX 40 MG PO ×2 (09:09→20:06)
[2025-04-23] MEDS: ELIQUIS 5 MG PO ×2 (09:09→20:06)
[2025-04-23] MEDS: ROXICODONE 5 MG PO ×3 (09:11→20:06)
[2025-04-23 09:12] LABS: Hematocrit 31.4 % (39.0-52.0); Hemoglobin 10.1 g/dL (13.0-18.0); Mean Corp Hgb Conc. 32.2 g/dL (33.0-37.0); Mean Corpuscular Volume 94.3 fL (80.0-94.0); Platelet Count 186 10^3/uL (130-400); Red Cell Dist. Width 16.2 % (11.5-14.5)
[2025-04-23 09:35] LABS: Blood Urea Nitrogen 46 mg/dl (9-20); Calcium 9.5 mg/dl (8.4-10.2); Carbon Dioxide 22 mmol/L (22-30); Chloride 107 mmol/L (98-107); Estimated Creatinine Clearance 48 ml/min; Glucose 89 mg/dl (70-99); Potassium 4.1 mmol/L (3.5-5.1); Sodium 134 mmol/L (135-145); eGFR > 60.00
--- NOTE | 2025-04-23 10:40 | W.PN.ID1 ---
Date of Service
Date of Service: April 23, 2025
Today's Communication
- Continue ceftriaxone 2 gm IV q24 (d8)
- At time of discharge, transition to po cipro 500mg po bid through 04/29.
Assessment / Plan
# Gross hematuria, resolved
# New fever 04/14, resolved
# Leukocytosis, resolved
# Complicated transplant kidney UTI/obstructive uropathy
# # Recurrent Klebsiella pneumoniae bacteremia x 3 sets (04/14/25)
- Repeat blood cx's 04/16 and 04/17 neg
- 04/15 s/p OR cysto, successful ureter stent placement. Per Urology + bleeding and pus from transplant kidney
OR urine cx - K pneumoniae
- Continue ceftriaxone 2 gm IV q24 (d8)
- At time of discharge, transition to po cipro 500mg po bid through 04/29.
# hx donor renal txp on immunosuppressive drugs, recent rejection
# Obstructive uropathy of transplant kidney, esteves since 03/15 outpatient
# s/p Recent shock transplant kidney pyelonephritis with Klebsiella and E. faecalis, Klebsiella bacteremia s/p 14d abx (against both org) completed 04/02/25
# s/p cardiogenic shock, respiratory failure intubated 03/21; extubated 03/25/25
# chronic interstitial lung disease
# Severe aortic stenosis s/p TAVR 04/06/25
# ELIZABETH on CKD requiring renal replacement therapy (03/20 - 04/01). ELIZABETH resolving Cr 1.4
# PE (04/04/25), LUE DVT (04/08/25), RUE DVT (04/12/25)
# LUE midforearm hematoma/bleeding from IV catheter attempt (04/09/25). No pseudoaneurysm .
Chief Complaint
-: UTI and Bacteremia
Subjective / Review of Systems
No complaints. Waiting for rehab.
Vital Signs / Physical Exam
Vital Signs
Vital Signs
Temp Pulse Resp BP Pulse Ox
97.4 F 86 18 160/79 96
04/23/25 07:00 04/23/25 07:00 04/23/25 07:00 04/23/25 07:00 04/23/25 07:00
Physical Exam
Constitutional: No Acute Distress and Comfortable
Eyes: Sclera Anicteric
Cardiovascular: Irregular Rate and S1/S2
Pulmonary: Coarse
Gastrointestinal: Soft, Non Tender and Non Distended
Genito-Urinary: Esteves, Clear Urine and Other (Transplant kidney nontender); Negative Hematuria
Extremities: Negative Edema
Neurological: AO x 3
Objective Data
Lab Data
Lab Results
04/23/25 08:37
04/23/25 08:37
ESR 87 mm/hour (0-20) H 04/11/25 03:29
PT 14.7 Sec (11.4-14.6) H 04/16/25 04:57
INR 1.17 04/16/25 04:57
APTT 28.9 Sec (23.4-35.0) 04/16/25 04:57
Estimated Creat Clear 48 ml/min 04/23/25 08:37
Lactic Acid 2.0 mmol/L (0.7-2.0) 04/14/25 20:51
Total Bilirubin 0.8 mg/dl (0.2-1.3) 04/11/25 03:29
AST 40 U/L (17-59) 04/11/25 03:29
ALT 32 U/L (0-50) 04/11/25 03:29
Alkaline Phosphatase 85 U/L (38-126) 04/11/25 03:29
C-Reactive Protein Cancelled 04/08/25 16:00
Most recent labs reviewed.
Micro Results:
04/17/25 06:15 Blood Culture - Final
Blood/Venous No Growth - Final Report
04/14/25 20:01 Blood Culture - Final
Blood/Venous Klebsiella pneumoniae
Gram Stain - Final
04/16/25 04:57 Blood Culture - Final
Blood/Venous No Growth - Final Report
04/15/25 10:17 Urine Culture - Final
Urine Klebsiella pneumoniae
Klebsiella pneumoniae#2
04/14/25 20:50 Blood Culture - Final
Blood/Venous Klebsiella pneumoniae
Gram Stain - Final
04/14/25 20:01 Blood Culture - Final
Blood/Venous Klebsiella pneumoniae
Gram Stain - Final
04/14/25 20:01 Influenza Types A & B (NOLVIA) - Final
Nasal Swab Negative for Influenza A & B, NAAT
Negative results must be combined with clinical observations
and patient history.
Nucleic Acid Amplification test (NAAT)performed on the
[employer] platform.
04/12/25 08:38 Urine Culture - Final
Urine NO GROWTH
03/20/25 05:07 Blood Culture - Final
Blood/Venous No Growth - Final Report
03/20/25 05:34 Blood Culture - Final
Blood/Venous No Growth - Final Report
03/18/25 18:13 Urine Culture - Final
Urine Klebsiella pneumoniae
Enterococcus faecalis
03/18/25 17:02 Blood Culture - Final
Blood/Venous Klebsiella pneumoniae
Gram Stain - Final
03/18/25 17:01 Blood Culture - Final
Blood/Venous Klebsiella pneumoniae
Gram Stain - Final
03/18/25 23:17 MRSA Screen - Final
Nose No Methicillin Resistant Staphylococcus aureus isolated.
03/18/25 17:03 Influenza Types A & B (NOLVIA) - Final
Nasal Swab Negative for Influenza A & B, NAAT
Negative results must be combined with clinical observations
and patient history.
Nucleic Acid Amplification test (NAAT)performed on the
[employer] platform.
04/15/25 CT a/p:
1. Severe hydronephrosis of transplant kidney, unchanged.
2. Very small volume of gas within the transplant renal collecting system, decreased as compared with the previous exam. As above, there is gas in the transplant ureter including along the anastomosis with the urinary bladder, therefore both
infection and gas related to Esteves catheter remain considerations.
3. Fluid fluid level within the renal transplant collecting system. This could be related to excretion of contrast from previous procedure. Hemorrhage is also possible.
4. Bilateral small pleural effusions. Pulmonary fibrosis as seen previously. Decreased pneumomediastinum.
5. Small left groin hematoma related to previous transcatheter aortic valve replacement.
6. Dilated gallbladder. No abnormal wall thickening or pericholecystic fluid identified.
04/14/25 CXR: Stable diffuse interstitial prominence likely reflects underlying chronic interstitial lung disease
04/12/25 LUE arterial study: Patent left radial artery with no evidence of pseudoaneurysm. Previously visualized area of abnormality in the mid radial artery is not seen on today's examination
04/09/25 LUE Angio: Small foci of extravasated contrast material seen within the soft tissues at the level of the mid forearm adjacent to the radial artery. Consistent with mild active hemorrhage. Generalized edema. A focal soft tissue collection is
difficult to identify with certainty.
03/31/25 CXR: Slightly improved pulmonary interstitial markings suggesting resolving interstitial edema. Pneumomediastinum without significant change.
03/28/[address]: Mild pneumomediastinum, with superior extension into the fat at the base of the neck, as well as at the posterior and lateral aspect of the right mid to upper thorax. Diffuse bilateral interstitial and groundglass opacity. This
could be related to fluid associated with interstitial and pulmonary edema related to volume overload or congestive heart failure. Alternatively, findings may be infectious in nature related to atypical or viral pneumonitis. No focal dense
consolidation.
03/20/25 CXR: Grossly stable severe diffuse bilateral interstitial and airspace disease which may reflect combination of pulmonary edema and pneumonia. Cannot rule out component of underlying chronic interstitial lung disease.
03/19/25 CXR: Progressive parenchymal disease process, as described. Differential includes progressive congestive heart failure with pulmonary edema versus diffuse bilateral pneumonia, right greater than left.
03/18/25 CT a/p: Severe acute edema and inflammation around the right lower quadrant renal transplant which is new from 12/17/2024. Severe hydronephrosis of the right intrarenal collecting system and right renal pelvis which has increased. ACUTE
PYELONEPHRITIS of the RIGHT LOWER QUADRANT RENAL TRANSPLANT is considered most likely. Acute infarction of the renal transplant is a less likely diagnostic possibility. Severe diffuse urinary bladder wall thickening with surrounding perivesical
inflammation which appears new from 12/17/2024 suggesting SEVERE ACUTE CYSTITIS. Esteves catheter in the urinary bladder. Mildly enlarged prostate gland.
--- NOTE | 2025-04-23 11:24 | W.PN.NEPH.PH ---
Today's Communication / Plan
-
Observe
Torsemide held but weights remained stable
Assessment/Plan
-
This is a 79-year-old gentleman who follows in our office with Dr. Muhammad after donor renal transplant 2019 from [facility]. His transplant course has been complicated by development of nephrotic range proteinuria as well as recent
cellular rejection December of this year. The episodes treated with Solu-Medrol. His creatinine has risen quickly over time in the last several months. He has gone from a creatinine around 2 now up to 4.4. He was noted to have hydronephrosis of
the transplanted kidney recently on ultrasound as well as CT scan. Esteves catheter was placed by urology a few days ago. His appetite has been poor as of late. Recently he also developed fever and malaise and this has brought him to the emergency
room. He was noted to be febrile in the ER. Blood pressure was stable though lower than his home readings of 132. He was 100 systolic in the ER. Creatinine was 4.7 with elevated lactate level and elevated white count. CT of the abdomen and
pelvis were performed with suspicion for pyelonephritis of the transplant. We are asked to assist in management of his renal issues.
Assessment
Sepsis syndrome, possible pyelonephritis
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
donor renal transplant with FSGS, recent T-cell rejection
Obstructive uropathy, Esteves catheter in place
ELIZABETH..
Anemia
Hyponatremia
lactic acidosis
TAVR 04/06/25
LUE arterial oozing
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
Plan
creatinine stable at 1.2 and grossly nonoliguric,
s/p OR on 04/15-noted gross hematuria from bleeding infeted transplant kidney s/p rt U stent
abx per ID for kleb bacteremia
back on AC 04/21 monitor for hematuria
monitor h/h, hb stable 10.1
Despite all of above he has stable renal function cr better than baseline and non oliguric
last belatacept dose was 04/09 (275mg/weight based-monthly dose), continue pred/MMF
tolerating diet
needs rehab
-
-
Date of Service: April 23, 2025
CC / HPI / ROS
-
Chief Complaint:
Sepsis
History of Present Illness:
ELIZABETH/Cr at 1.2-stable,
BP stable
Hgb better at 10.1,
no gross hematuria
Review of Systems:
non oliguric with esteves
eating well
no cp, no sob at rest
Labs
-
Labs:
WBC 7.0 10^3/uL (4.8-10.8) 04/23/25 08:37
RBC 3.33 10^6/uL (4.70-6.10) L 04/23/25 08:37
Hgb 10.1 g/dL (13.0-18.0) L 04/23/25 08:37
Hct 31.4 % (39.0-52.0) L 04/23/25 08:37
Plt Count 186 10^3/uL (130-400) 04/23/25 08:37
Sodium 134 mmol/L (135-145) L 04/23/25 08:37
Potassium 4.1 mmol/L (3.5-5.1) 04/23/25 08:37
Chloride 107 mmol/L (98-107) 04/23/25 08:37
Carbon Dioxide 22 mmol/L (22-30) 04/23/25 08:37
BUN 46 mg/dl (9-20) H 04/23/25 08:37
Creatinine 1.2 mg/dL (0.7-1.3) 04/23/25 08:37
eGFR > 60.00 04/23/25 08:37
Glucose 89 mg/dl (70-99) 04/23/25 08:37
Calcium 9.5 mg/dl (8.4-10.2) 04/23/25 08:37
Phosphorus 6.0 mg/dl (2.5-4.5) H 04/10/25 03:02
Htm-B-Zhqjfxjphpo Pept 21940 pg/ml 04/08/25 16:55
Albumin 2.1 g/dl (3.5-5.0) L 04/11/25 03:29
Physical Exam
-
Vital Signs:
Vital Signs
Temp Pulse Resp BP Pulse Ox
97.4 F 86 18 160/79 96
04/23/25 07:00 04/23/25 07:00 04/23/25 07:00 04/23/25 07:00 04/23/25 07:00
Cardiovascular:: Regular rate and rhythm
Respiratory:: Bilateral: CTA (decreased BS)
Lung Excursion:: Normal
Abdomen:: Nontender and Soft
Bowel Sounds:: Normal
Extremity Edema:: None: Bilateral:
Esteves Catheter: Yes
Other Findings::
left UE echymosis noted-improving edema
--- NOTE | 2025-04-23 11:47 | W.PN.HOSP.TC ---
Addendum entered and electronically signed by Trace Roman MD 04/23/25 11:55:
Not a diabetic
HbA1c 5.8 last month
DC regualr insulin ,follow on low dose SSI
On pred for renal tx
Original Note:
Today's Communication/Plan
-
DC to acute rehab
Assessment / Plan
Assessment / Plan
Assessment/Plan
79-year-old with history of end-stage renal disease status post kidney transplant 2019 on antirejection medications, hypertension, hyperlipidemia, atrial fibrillation on Eliquis, urinary retention status post catheter placement several days prior to
admission presenting to the emergency department with fever and chills as well as weakness, admitted for sepsis secondary to transplant pyelonephritis, acute renal failure of transplanted kidney with development of acute hypoxic respiratory failure,
inability to tolerate HD secondary to severe and now s/p TAVR 04/06.

Severe aortic stenosis with cardiogenic shock status post TAVR on 04/06
- RHC 03/30 indicated aortic stenosis as source of low cardiac output/cardiogenic shock.
- s/p cardiac cath 04/02/25 - non-obstructive CAD
- Decision made for more urgent TAVR
- Post TTE shows stable valve, normal gradients, no effusion.
- Cardiology signed off
- DW Dr Larios yesterday - recommends only AC and dc Aspirin going forward
ELIZABETH requiring hemodialysis
Renal transplant
Creatinine stable at 1.4 ;nonoliguric. Holding on further hemodialysis and following clinically.
Continue with pred/MMF
Hydronephrosis of transplanted kidney
- Obstructive uropathy of transplant kidney, Esteves placed 03/15/25
- Maintain Esteves catheter .No hematuria
-S/P cystoscopy and stent placement
- DC esteves when ok from urology
Acute hypoxic respiratory failure requiring intubation 03/21-03/25
Bilateral small pleural effusions and as seen on previous imaging, pulmonary fibrosis
Resolved
Septic shock associated with acute kidney injury, lactic acidosis secondary to Klebsiella bacteremia likely secondary to urinary tract infection
Transplant kidney pyelonephritis with Klebsiella and E. faecalis
Immunosuppressed
Resolved
CW ABX per ID - on Ceftriaxone now
Pulmonary embolus within the posterior left lower lobe segmental pulmonary artery on CT Chest on 04/04/25
Short-segment left axillary vein thrombus
-Seen on CT Chest done in preparation for aortic valve surgery
-AC on hold due to bleeding issues
-Back on AC
Nonocclusive thrombus within the right cephalic vein within the distal aspect of the upper arm
Occlusive thrombus within the cephalic vein in the proximal forearm
-Conservative management for superficial venous thrombosis
Left Upper Extremity Hematoma
Likely contained pseudoaneurysm -- status post left mid forearm A-line placement, then forearm swelling, then found to have likely contained pseudoaneurysm based on imaging
-arterial US/angiogram 04/09/25 with active extravasation in left forearm with associated hematoma
-appreciate Vascular surgery input - based on comorbidities/skin tissue integrity trying to avoid surgical intervention - continue karl bandage wrap and compression
-Repeat arterial duplex 04/12/25 -- with no evidence of active extravasation or pseudoaneurysm
-Continue karl wrap for gentle compression at the LUE -- edema has improved
-Continue PRN dressing change for forearm skin tear
Acute blood loss anemia secondary to multiple sources: LUE hematoma, melena , hematuria , epistaxis
-So far, patient has received 10 units of red blood cells this hospitalization (10th one was given in OR on 04/15/25)
-H&H stable
Thrombocytopenia
-HIT panel testing was negative
-appreciate Heme eval
-Normalized platelet
Acute blood loss anemia with baseline chronic macrocytic anemia
Melena on 04/11-04/12
Epistaxis
Hematuria developed on 04/11/25-04/12/25
-Status post total of 10 units of PRBCs so far (10th unit was given perioperatively on 04/15/25)
-GI saw patient on 04/12/25, no endoscopy given current patient's current condition, GI has signed off
-Continue PPI BID
Permanent Atrial Fibrillation
- Rate controlled
-cw Eliquis
-Continue with beta-armando
Hypertension
-Home Amlodipine 5 mg daily resumed on 04/13/25
-Holding Losartan for now given tenuous kidney situation with urinary bleeding
Sacrum Stage 2 Pressure Injury
-Wound care
Resolved issues
TME
Epistaxis
Ex-Smoker
DVT Prophylaxis: SCDs only given bleeding.
Diet: Tolerating oral diet
Code status - Full Code
PMR agree with acute rehab
Medically stable for DC
DW and daughter yesterday about medical stability and dc to rehab plans
DW CM today
Anticipated Discharge: Today
Subjective/Interval History
-
Date of Service: April 23, 2025
No overnight events.
Voices no specific complaints.
Denies any chest pain or shortness of breath.
No dizziness.
No nausea vomiting or diarrhea. Tolerating diet.
Objective Data
-
Labs:
Laboratory Results
04/23/25
08:37
WBC 7.0
Hgb 10.1 L
Hct 31.4 L
Plt Count 186
Sodium 134 L
Potassium 4.1
Chloride 107
Carbon Dioxide 22
BUN 46 H
Creatinine 1.2
Glucose 89
Calcium 9.5
Vital Signs:
Vital Signs
Temp Pulse Resp BP Pulse Ox
97.4 F 86 18 160/79 96
04/23/25 07:00 04/23/25 07:00 04/23/25 07:00 04/23/25 07:00 04/23/25 07:00
I&O
04/22/25 04/23/25 04/24/25
06:59 06:59 06:59
Intake Total 450 / 450 680 / 680
Output Total 2200 / 2200 1475 / 1475
Balance -1750 / -1750 -795 / -795
Physical Exam
-
General: No Apparent Distress
HEENT: Moist Mucous Membranes
Respiratory: Clear to Auscultation and Non Labored Respirations; Negative Accessory Resp Muscle Use
Cardiac: Regular Rhythm and S1/S2; Negative Tachycardic
GI: Soft and Nontender
Genito-urinary: Clear Urine and Esteves
Neuro: AO x 3
Psych: Calm
Data Reviewed
-
Labs: Labs Reviewed by me
--- NOTE | 2025-04-23 11:48 | W.PN.URO.CBU ---
Today's Communication / Plan
-
stable urologically
Assessment / Plan
-
hx of renal transplant with hydro of transplant kidney
urinary retention
Klebsiella UTI- urosepsis
hematuria -- resolved
hydro of transplant- s/p stent placement
stable urologically
cr down to 1.2
continue esteves and stent
if discharged over the weekend- will need to schedule f/u with dr lane for cath exchange in next 7-10 days
ultimately as emphasized previously- needs transplant team eval for retention and hydro
Diagnosis
-
Date of Service: April 23, 2025
-
Patient Urologic Diagnosis:
hx of renal transplant
urinary retention
hydro of renal transplant
UTI
hematuria
UTI AND HEMATURIA DUE TO OBSTRUCTED TRANSPLANT
s/p cysto/transplant stent placement/fulguration 04/15
Subjective
-
pt awake and alert
no complaints
on eliquis
urine yellow/ cr down to 1.2
Objective
-
Vital Signs
Temp Pulse Resp BP Pulse Ox
97.4 F 86 18 160/79 96
04/23/25 07:00 04/23/25 07:00 04/23/25 07:00 04/23/25 07:00 04/23/25 07:00
Intake and Output
04/22/25 04/23/25 04/24/25
06:59 06:59 06:59
Intake Total 450 / 450 680 / 680
Output Total 2200 / 2200 147 / 1475
Balance -1750 / -1750 -795 / -795
Intake:
Oral fluids 450 / 450 680 / 680
Output:
Urine, Esteves 1700 / 1700 1475 / 1475
Urine, Voided 500 / 500
Laboratory Results
04/23/25 08:37
04/23/25 08:37
Physical Exam
-
General - no acute distress
Abdomen - soft, non-tender
Genitalia - esteves in place
--- NOTE | 2025-04-23 11:59 | CM ---
Chart reviewed. Per hospitalist, patient is medically stable. PM&R completed, agree with acute rehab recommendation
Spoke w/ [facility], no more available beds until next week. [facility] has availability
Spoke w/ patient's , informed her patient is medically stable but that [facility] does not have a bed. CM offered [facility] location, spouse was very upset, crying, stating that patient needs to stay in [place] as they live in [place]. Spouse
is not willing to explore [facility] location or any other acute rehab. CM informed spouse that patient cannot remain in the hospital until [facility] has a bed if another option can be explored. Spouse continued to refuse, stated that patient is not
medically stable. Asking if she can speak w/ hospitalist. TT sent to hospitalist to give spouse a call
[2025-04-23] MEDS: NOVOLOG FLEXPEN-HIGH RESISTANCE SC (12:17)
[2025-04-23] MEDS: NOVOLOG FLEXPEN SC (12:17)
[2025-04-23 12:23] LABS: Glucose - Point of Care 108 mg/dl (70-99)
[2025-04-23] MEDS: STERILE WATER FOR INJECTION 20 ML IV (13:37)
[2025-04-23] MEDS: ROCEPHIN 2000 MG IV (13:38)
--- NOTE | 2025-04-23 15:02 | WOUNDNOTE ---
WO RN NOTE: Followed up with patient for sacral PI and skin tear to left forearm. Patient with DTI to sacrum pictured on 03/29. Sacral wound now appears fully epithelized with adjacent open areas progressing toward healing. Will update order to
discontinue Santyl and to cover open areas with Calazime and silicone foam. Left arm skin tear is healed. A static air overlay was placed and patient was off-loaded in a right semi-side lying position. Heels intact and new adhesive foams applied.
Plan is for SNF. RAY Mera given update. Will update orders and follow as needed.
[2025-04-23 16:19] LABS: Glucose - Point of Care 179 mg/dl (70-99)
[2025-04-23] MEDS: OCEAN, SALINE MIST NASAL ×2 (17:27→22:35)
[2025-04-23] MEDS: NOVOLOG FLEXPEN-LOW RESISTANCE 1 UNITS SC (17:29)
[2025-04-23] MEDS: APRESOLINE 5 MG IV (20:07)
[2025-04-23] MEDS: REMOVE LIDOCAINE PATCH 1 PATCH REMOVE (20:07)
[2025-04-23 21:27] LABS: Glucose - Point of Care 150 mg/dl (70-99)
[2025-04-23] MEDS: MELATONIN 5 MG PO (22:35)
[2025-04-24 03:15] VITALS: BP 149/84
[2025-04-24] MEDS: ROXICODONE 5 MG PO ×2 (03:28→19:32)
[2025-04-24 05:13] VITALS: BMI 20.8
[2025-04-24 07:22] LABS: Glucose - Point of Care 98 mg/dl (70-99)
[2025-04-24] MEDS: NOVOLOG FLEXPEN-LOW RESISTANCE SC ×3 (07:23→16:43)
[2025-04-24 08:12] VITALS: BP 143/60
[2025-04-24] MEDS: MIRALAX 17 GRAMS PO (08:27)
[2025-04-24] MEDS: LIDOCAINE 4% PATCH 1 PATCH TOPICAL (08:29)
[2025-04-24] MEDS: DESENEX/MITRAZOL/ZEASORB 1 APPLIC TOPICAL ×2 (08:30→19:34)
[2025-04-24] MEDS: ELIQUIS 5 MG PO ×2 (08:30→19:33)
[2025-04-24] MEDS: OCEAN, SALINE MIST 1 SPRAYS NASAL (08:31)
[2025-04-24] MEDS: PROTONIX 40 MG PO ×2 (08:31→19:33)
[2025-04-24] MEDS: SENOKOT-S 1 TABLET PO ×2 (08:32→19:33)
[2025-04-24] MEDS: LOPRESSOR 25 MG PO ×2 (08:32→19:33)
[2025-04-24] MEDS: NORVASC 5 MG PO (08:32)
[2025-04-24] MEDS: HYDROPHOR 1 APPLIC TOPICAL (08:33)
[2025-04-24] MEDS: VALIUM 2 MG PO ×2 (08:37→22:12)
[2025-04-24 08:38] LABS: Blood Urea Nitrogen 40 mg/dl (9-20); Calcium 9.2 mg/dl (8.4-10.2); Carbon Dioxide 22 mmol/L (22-30); Chloride 105 mmol/L (98-107); Estimated Creatinine Clearance 54 ml/min; Glucose 95 mg/dl (70-99); Potassium 4.2 mmol/L (3.5-5.1); Sodium 135 mmol/L (135-145); eGFR > 60.00
[2025-04-24] MEDS: DELTASONE 2.5 MG PO ×2 (08:40→19:33)
[2025-04-24] MEDS: CELLCEPT 1000 MG PO ×2 (09:25→19:34)
--- NOTE | 2025-04-24 10:04 | W.PN.NEPH.PH ---
Today's Communication / Plan
-
Observe
kidney function stable on current immunosuppression regimen
Assessment/Plan
-
This is a 79-year-old gentleman who follows in our office with Dr. Muhammad after donor renal transplant 2019 from [facility]. His transplant course has been complicated by development of nephrotic range proteinuria as well as recent
cellular rejection December of this year. The episodes treated with Solu-Medrol. His creatinine has risen quickly over time in the last several months. He has gone from a creatinine around 2 now up to 4.4. He was noted to have hydronephrosis of
the transplanted kidney recently on ultrasound as well as CT scan. Esteves catheter was placed by urology a few days ago. His appetite has been poor as of late. Recently he also developed fever and malaise and this has brought him to the emergency
room. He was noted to be febrile in the ER. Blood pressure was stable though lower than his home readings of 132. He was 100 systolic in the ER. Creatinine was 4.7 with elevated lactate level and elevated white count. CT of the abdomen and
pelvis were performed with suspicion for pyelonephritis of the transplant. We are asked to assist in management of his renal issues.
Assessment
Sepsis syndrome, possible pyelonephritis
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
donor renal transplant with FSGS, recent T-cell rejection
Obstructive uropathy, Esteves catheter in place
ELIZABETH..
Anemia
Hyponatremia
lactic acidosis
TAVR 04/06/25
LUE arterial oozing
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
Plan
creatinine stable at 1.1 and grossly nonoliguric,
s/p OR on 04/15-noted gross hematuria from bleeding infeted transplant kidney s/p rt U stent
abx per ID for kleb bacteremia
back on AC 04/21 monitor for hematuria
monitor h/h, hb stable 10.1
Despite all of above he has stable renal function cr better than baseline and non oliguric
last belatacept dose was 04/09 (275mg/weight based-monthly dose), continue pred/MMF
tolerating diet
needs rehab
-
-
Date of Service: April 24, 2025
CC / HPI / ROS
-
Chief Complaint:
Sepsis
History of Present Illness:
ELIZABETH/Cr at 1.1-stable,
BP stable
Hgb better at 10.1,
no gross hematuria
Review of Systems:
non oliguric with esteves
eating well
no cp, no sob at rest
Labs
-
Labs:
WBC 7.0 10^3/uL (4.8-10.8) 04/23/25 08:37
RBC 3.33 10^6/uL (4.70-6.10) L 04/23/25 08:37
Hgb 10.1 g/dL (13.0-18.0) L 04/23/25 08:37
Hct 31.4 % (39.0-52.0) L 04/23/25 08:37
Plt Count 186 10^3/uL (130-400) 04/23/25 08:37
Sodium 135 mmol/L (135-145) 04/24/25 07:27
Potassium 4.2 mmol/L (3.5-5.1) 04/24/25 07:27
Chloride 105 mmol/L (98-107) 04/24/25 07:27
Carbon Dioxide 22 mmol/L (22-30) 04/24/25 07:27
BUN 40 mg/dl (9-20) H 04/24/25 07:27
Creatinine 1.1 mg/dL (0.7-1.3) 04/24/25 07:27
eGFR > 60.00 04/24/25 07:27
Glucose 95 mg/dl (70-99) 04/24/25 07:27
Calcium 9.2 mg/dl (8.4-10.2) 04/24/25 07:27
Phosphorus 6.0 mg/dl (2.5-4.5) H 04/10/25 03:02
Kgz-R-Fuffusnfsas Pept 60748 pg/ml 04/08/25 16:55
Albumin 2.1 g/dl (3.5-5.0) L 04/11/25 03:29
Physical Exam
-
Vital Signs:
Vital Signs
Temp Pulse Resp BP Pulse Ox
97.6 F 86 18 143/60 100
04/24/25 08:12 04/24/25 08:12 04/24/25 08:12 04/24/25 08:12 04/24/25 08:12
Cardiovascular:: Regular rate and rhythm
Respiratory:: Bilateral: CTA (decreased BS)
Lung Excursion:: Normal
Abdomen:: Nontender and Soft
Bowel Sounds:: Normal
Extremity Edema:: None: Bilateral:
Esteves Catheter: Yes
Other Findings::
left UE echymosis noted-improving edema
[2025-04-24 11:47] VITALS: BP 130/71
[2025-04-24] MEDS: ROCEPHIN 2000 MG IV (11:59)
[2025-04-24 12:00] LABS: Glucose - Point of Care 148 mg/dl (70-99)
[2025-04-24] MEDS: FLUSH (NSS) 2 FLUSH IV (12:00)
[2025-04-24] MEDS: STERILE WATER FOR INJECTION 20 ML IV (12:00)
--- NOTE | 2025-04-24 12:32 | W.PN.HOSP.TC ---
Today's Communication/Plan
-
Await dc to acute rehab
Assessment / Plan
Assessment / Plan
Assessment/Plan
79-year-old with history of end-stage renal disease status post kidney transplant 2019 on antirejection medications, hypertension, hyperlipidemia, atrial fibrillation on Eliquis, urinary retention status post catheter placement several days prior to
admission presenting to the emergency department with fever and chills as well as weakness, admitted for sepsis secondary to transplant pyelonephritis, acute renal failure of transplanted kidney with development of acute hypoxic respiratory failure,
inability to tolerate HD secondary to severe and now s/p TAVR 04/06.

Severe aortic stenosis with cardiogenic shock status post TAVR on 04/06
- RHC 03/30 indicated aortic stenosis as source of low cardiac output/cardiogenic shock.
- s/p cardiac cath 04/02/25 - non-obstructive CAD
- Decision made for more urgent TAVR
- Post TTE shows stable valve, normal gradients, no effusion.
- Cardiology signed off
- KARON Larios 04/22 - recommends only AC and dc Aspirin going forward
ELIZABETH requiring hemodialysis
Renal transplant
Creatinine stable at 1.4 ;nonoliguric. Holding on further hemodialysis and following clinically.
Continue with pred/MMF
Hydronephrosis of transplanted kidney
- Obstructive uropathy of transplant kidney, Esteves placed 03/15/25
- Maintain Esteves catheter .No hematuria
-S/P cystoscopy and stent placement
- DC esteves when ok from urology
Acute hypoxic respiratory failure requiring intubation 03/21-03/25
Bilateral small pleural effusions and as seen on previous imaging, pulmonary fibrosis
Resolved
Septic shock associated with acute kidney injury, lactic acidosis secondary to Klebsiella bacteremia likely secondary to urinary tract infection
Transplant kidney pyelonephritis with Klebsiella and E. faecalis
Immunosuppressed
Resolved
CW ABX per ID - on Ceftriaxone now
Pulmonary embolus within the posterior left lower lobe segmental pulmonary artery on CT Chest on 04/04/25
Short-segment left axillary vein thrombus
-Seen on CT Chest done in preparation for aortic valve surgery
-AC on hold due to bleeding issues
-Back on AC
Nonocclusive thrombus within the right cephalic vein within the distal aspect of the upper arm
Occlusive thrombus within the cephalic vein in the proximal forearm
-Conservative management for superficial venous thrombosis
Left Upper Extremity Hematoma
Likely contained pseudoaneurysm -- status post left mid forearm A-line placement, then forearm swelling, then found to have likely contained pseudoaneurysm based on imaging
-arterial US/angiogram 04/09/25 with active extravasation in left forearm with associated hematoma
-appreciate Vascular surgery input - based on comorbidities/skin tissue integrity trying to avoid surgical intervention - continue karl bandage wrap and compression
-Repeat arterial duplex 04/12/25 -- with no evidence of active extravasation or pseudoaneurysm
-Continue karl wrap for gentle compression at the LUE -- edema has improved
-Continue PRN dressing change for forearm skin tear
Acute blood loss anemia secondary to multiple sources: LUE hematoma, melena , hematuria , epistaxis
-So far, patient has received 10 units of red blood cells this hospitalization (10th one was given in OR on 04/15/25)
-H&H stable
Thrombocytopenia
-HIT panel testing was negative
-appreciate Heme eval
-Normalized platelet
Acute blood loss anemia with baseline chronic macrocytic anemia
Melena on 04/11-04/12
Epistaxis
Hematuria developed on 04/11/25-04/12/25
-Status post total of 10 units of PRBCs so far (10th unit was given perioperatively on 04/15/25)
-GI saw patient on 04/12/25, no endoscopy given current patient's current condition, GI has signed off
-Continue PPI BID
Permanent Atrial Fibrillation
- Rate controlled
-cw Eliquis
-Continue with beta-armando
Hypertension
-Home Amlodipine 5 mg daily resumed on 04/13/25
-Holding Losartan for now given tenuous kidney situation with urinary bleeding
Sacrum Stage 2 Pressure Injury
-Wound care
Resolved issues
TME
Epistaxis
Ex-Smoker
DVT Prophylaxis: SCDs only given bleeding.
Diet: Tolerating oral diet
Code status - Full Code
PMR agree with acute rehab
Medically stable for DC
Anticipated Discharge: > 48 hours
Subjective/Interval History
-
Date of Service: April 24, 2025
Voicing no specific complaints. No overnight events.
Denies any nausea vomiting. Tolerating diet.
Denies any chest pain or shortness of breath.
Objective Data
-
Labs:
Laboratory Results
04/24/25
07:27
Sodium 135
Potassium 4.2
Chloride 105
Carbon Dioxide 22
BUN 40 H
Creatinine 1.1
Glucose 95
Calcium 9.2
Vital Signs:
Vital Signs
Temp Pulse Resp BP Pulse Ox
97.7 F 76 18 130/71 100
04/24/25 11:47 04/24/25 11:47 04/24/25 11:47 04/24/25 11:47 04/24/25 11:47
I&O
04/23/25 04/24/25 04/25/25
06:59 06:59 06:59
Intake Total 680 / 680 560 / 560
Output Total 1475 / 1475 1500 / 1500
Balance -795 / -795 -940 / -940
Physical Exam
-
General: Comfortable
HEENT: Moist Mucous Membranes
Respiratory: Non Labored Respirations; Negative Accessory Resp Muscle Use
Cardiac: Regular Rhythm and S1/S2; Negative Tachycardic
GI: Soft
Neuro: AO x 3
Psych: Calm; Negative Confused
Data Reviewed
-
Labs: Labs Reviewed by me
[2025-04-24 15:50] VITALS: BP 122/69
[2025-04-24 16:40] LABS: Glucose - Point of Care 142 mg/dl (70-99)
[2025-04-24] MEDS: OCEAN, SALINE MIST 50 SPRAYS NASAL (17:23)
[2025-04-24] MEDS: REMOVE LIDOCAINE PATCH 1 PATCH REMOVE (19:34)
[2025-04-24 19:40] VITALS: BP 148/68
[2025-04-24 21:36] LABS: Glucose - Point of Care 121 mg/dl (70-99)
[2025-04-24] MEDS: OCEAN, SALINE MIST NASAL (22:13)
[2025-04-24] MEDS: MELATONIN 5 MG PO (22:13)
[2025-04-24 23:06] VITALS: BP 140/73
[2025-04-25] MEDS: ROXICODONE 5 MG PO ×3 (03:34→21:56)
[2025-04-25] MEDS: ZOFRAN 4 MG IV (03:34)
[2025-04-25 03:59] VITALS: BMI 20.8
[2025-04-25 07:28] VITALS: BP 151/75
[2025-04-25 08:20] LABS: Glucose - Point of Care 100 mg/dl (70-99)
[2025-04-25] MEDS: NOVOLOG FLEXPEN-LOW RESISTANCE SC ×3 (09:18→16:57)
[2025-04-25] MEDS: MIRALAX 17 GRAMS PO (09:18)
[2025-04-25] MEDS: CELLCEPT 1000 MG PO ×2 (09:18→20:08)
[2025-04-25] MEDS: SENOKOT-S 1 TABLET PO ×2 (09:19→19:54)
[2025-04-25] MEDS: ELIQUIS 5 MG PO ×2 (09:19→19:53)
[2025-04-25] MEDS: HYDROPHOR 1 APPLIC TOPICAL (09:19)
[2025-04-25] MEDS: LOPRESSOR 25 MG PO ×2 (09:19→19:53)
[2025-04-25] MEDS: DELTASONE 2.5 MG PO ×2 (09:19→19:54)
[2025-04-25] MEDS: LIDOCAINE 4% PATCH 1 PATCH TOPICAL (09:19)
[2025-04-25] MEDS: NORVASC 5 MG PO (09:19)
[2025-04-25] MEDS: PROTONIX 40 MG PO ×2 (09:19→19:54)
[2025-04-25] MEDS: OCEAN, SALINE MIST NASAL ×3 (09:20→21:56)
[2025-04-25] MEDS: DESENEX/MITRAZOL/ZEASORB 1 APPLIC TOPICAL ×2 (09:20→19:50)
--- NOTE | 2025-04-25 10:01 | W.PN.HOSP.TC ---
Today's Communication/Plan
-
Ongoing disposition efforts to acute rehab
Assessment / Plan
Assessment / Plan
Assessment/Plan
79-year-old with history of end-stage renal disease status post kidney transplant 2019 on antirejection medications, hypertension, hyperlipidemia, atrial fibrillation on Eliquis, urinary retention status post catheter placement several days prior to
admission presenting to the emergency department with fever and chills as well as weakness, admitted for sepsis secondary to transplant pyelonephritis, acute renal failure of transplanted kidney with development of acute hypoxic respiratory failure,
inability to tolerate HD secondary to severe and now s/p TAVR 04/06.

Severe aortic stenosis with cardiogenic shock status post TAVR on 04/06
- RHC 03/30 indicated aortic stenosis as source of low cardiac output/cardiogenic shock.
- s/p cardiac cath 04/02/25 - non-obstructive CAD
- Decision made for more urgent TAVR
- Post TTE shows stable valve, normal gradients, no effusion.
- Cardiology signed off
- KARON Larios 04/22 - recommends only AC and dc Aspirin going forward
ELIZABETH requiring hemodialysis
Renal transplant
Creatinine stable at 1.4 ;nonoliguric. Holding on further hemodialysis and following clinically.
Continue with pred/MMF
Hydronephrosis of transplanted kidney
- Obstructive uropathy of transplant kidney, Esteves placed 03/15/25
- Maintain Esteves catheter .No hematuria
-S/P cystoscopy and stent placement
- DC esteves when ok from urology
Acute hypoxic respiratory failure requiring intubation 03/21-03/25
Bilateral small pleural effusions and as seen on previous imaging, pulmonary fibrosis
Resolved
Septic shock associated with acute kidney injury, lactic acidosis secondary to Klebsiella bacteremia likely secondary to urinary tract infection
Transplant kidney pyelonephritis with Klebsiella and E. faecalis
Immunosuppressed
Resolved
CW ABX per ID - on Ceftriaxone now
Pulmonary embolus within the posterior left lower lobe segmental pulmonary artery on CT Chest on 04/04/25
Short-segment left axillary vein thrombus
-Seen on CT Chest done in preparation for aortic valve surgery
-AC on hold due to bleeding issues
-Back on AC
Nonocclusive thrombus within the right cephalic vein within the distal aspect of the upper arm
Occlusive thrombus within the cephalic vein in the proximal forearm
-Conservative management for superficial venous thrombosis
Left Upper Extremity Hematoma
Likely contained pseudoaneurysm -- status post left mid forearm A-line placement, then forearm swelling, then found to have likely contained pseudoaneurysm based on imaging
-arterial US/angiogram 04/09/25 with active extravasation in left forearm with associated hematoma
-appreciate Vascular surgery input - based on comorbidities/skin tissue integrity trying to avoid surgical intervention - continue karl bandage wrap and compression
-Repeat arterial duplex 04/12/25 -- with no evidence of active extravasation or pseudoaneurysm
-Continue karl wrap for gentle compression at the LUE -- edema has improved
-Continue PRN dressing change for forearm skin tear
Acute blood loss anemia secondary to multiple sources: LUE hematoma, melena , hematuria , epistaxis
-So far, patient has received 10 units of red blood cells this hospitalization (10th one was given in OR on 04/15/25)
-H&H stable
Thrombocytopenia
-HIT panel testing was negative
-appreciate Heme eval
-Normalized platelet
Acute blood loss anemia with baseline chronic macrocytic anemia
Melena on 04/11-04/12
Epistaxis
Hematuria developed on 04/11/25-04/12/25
-Status post total of 10 units of PRBCs so far (10th unit was given perioperatively on 04/15/25)
-GI saw patient on 04/12/25, no endoscopy given current patient's current condition, GI has signed off
-Continue PPI BID
Permanent Atrial Fibrillation
- Rate controlled
-cw Eliquis
-Continue with beta-armando
Hypertension
-Home Amlodipine 5 mg daily resumed on 04/13/25
-Holding Losartan for now given tenuous kidney situation with urinary bleeding
Sacrum Stage 2 Pressure Injury
-Wound care
Resolved issues
TME
Epistaxis
Ex-Smoker
DVT Prophylaxis: SCDs only given bleeding.
Diet: Tolerating oral diet
Code status - Full Code
PMR agree with acute rehab
Medically stable for DC
Anticipated Discharge: Within 24 hours
Subjective/Interval History
-
Date of Service: April 25, 2025
No overnight events.
Tolerating diet.
Denies shortness of breath.
No fever or chills.
Objective Data
-
Vital Signs:
Vital Signs
Temp Pulse Resp BP Pulse Ox
97.6 F 90 18 151/75 98
04/25/25 07:28 04/25/25 07:28 04/25/25 07:28 04/25/25 07:28 04/25/25 07:28
I&O
04/24/25 04/25/25 04/26/25
06:59 06:59 06:59
Intake Total 560 / 560 120 / 120
Output Total 1500 / 1500 1500 / 1500
Balance -940 / -940 -1380 / -1380
Physical Exam
-
General: Comfortable; Negative Respiratory Distress
Respiratory: Non Labored Respirations; Negative Accessory Resp Muscle Use
Cardiac: Regular Rhythm and S1/S2; Negative Tachycardic
GI: Soft
Neuro: AO x 3
[2025-04-25 11:56] LABS: Glucose - Point of Care 131 mg/dl (70-99)
[2025-04-25] MEDS: STERILE WATER FOR INJECTION 20 ML IV (12:26)
[2025-04-25] MEDS: ROCEPHIN 2000 MG IV (12:27)
[2025-04-25 15:30] VITALS: BP 111/55
[2025-04-25 16:44] LABS: Glucose - Point of Care 116 mg/dl (70-99)
[2025-04-25] MEDS: REMOVE LIDOCAINE PATCH 1 PATCH REMOVE (19:54)
[2025-04-25 21:54] LABS: Glucose - Point of Care 131 mg/dl (70-99)
[2025-04-25] MEDS: MELATONIN 5 MG PO (21:56)
[2025-04-25 23:20] VITALS: BP 146/78
[2025-04-26] MEDS: MAALOX 30 ML PO (04:11)
[2025-04-26] MEDS: ZOFRAN 4 MG IV (04:11)
[2025-04-26] MEDS: ROXICODONE 5 MG PO ×2 (07:30→20:27)
[2025-04-26] MEDS: MIRALAX 17 GRAMS PO (07:30)
[2025-04-26] MEDS: PROTONIX 40 MG PO ×2 (07:30→20:28)
[2025-04-26] MEDS: SENOKOT-S 1 TABLET PO ×2 (07:30→20:28)
[2025-04-26] MEDS: ELIQUIS 5 MG PO ×2 (07:30→20:28)
[2025-04-26] MEDS: LOPRESSOR 25 MG PO ×2 (07:30→20:27)
[2025-04-26] MEDS: DELTASONE 2.5 MG PO ×2 (07:30→20:26)
[2025-04-26] MEDS: NORVASC 5 MG PO (07:30)
[2025-04-26] MEDS: DESENEX/MITRAZOL/ZEASORB 1 APPLIC TOPICAL ×2 (07:31→20:26)
[2025-04-26] MEDS: HYDROPHOR 1 APPLIC TOPICAL (07:31)
[2025-04-26] MEDS: OCEAN, SALINE MIST 1 SPRAYS NASAL ×2 (07:31→18:16)
[2025-04-26] MEDS: LIDOCAINE 4% PATCH 1 PATCH TOPICAL (07:32)
[2025-04-26] MEDS: CELLCEPT 1000 MG PO ×2 (07:32→20:29)
[2025-04-26 08:11] VITALS: BP 134/68
[2025-04-26 08:34] LABS: Glucose - Point of Care 109 mg/dl (70-99)
[2025-04-26] MEDS: NOVOLOG FLEXPEN-LOW RESISTANCE SC ×3 (08:36→18:04)
[2025-04-26 09:33] LABS: Blood Urea Nitrogen 32 mg/dl (9-20); Calcium 9.0 mg/dl (8.4-10.2); Carbon Dioxide 24 mmol/L (22-30); Chloride 102 mmol/L (98-107); Estimated Creatinine Clearance 54 ml/min; Glucose 101 mg/dl (70-99); Potassium 4.1 mmol/L (3.5-5.1); Sodium 132 mmol/L (135-145); eGFR > 60.00
--- NOTE | 2025-04-26 11:28 | CM ---
Patient medically stable
Confirmed w/ [facility], that bed is available tomorrow
Updated hospitalist and spouse
MARCELO Bragg
Report: [phone]

Plan: D/c to [facility] tomorrow
[2025-04-26 11:49] VITALS: BP 163/75; PULSE 78; O2SAT 99
[2025-04-26 11:50] VITALS: BP 163/75; PULSE 78; O2SAT 99
--- NOTE | 2025-04-26 11:51 | W.PN.NEPH.PH ---
Today's Communication / Plan
-
follow BMP
Assessment/Plan
-
This is a 79-year-old gentleman who follows in our office with Dr. Muhammad after donor renal transplant 2019 from [facility]. His transplant course has been complicated by development of nephrotic range proteinuria as well as recent
cellular rejection December of this year. The episodes treated with Solu-Medrol. His creatinine has risen quickly over time in the last several months. He has gone from a creatinine around 2 now up to 4.4. He was noted to have hydronephrosis of
the transplanted kidney recently on ultrasound as well as CT scan. Esteves catheter was placed by urology a few days ago. His appetite has been poor as of late. Recently he also developed fever and malaise and this has brought him to the emergency
room. He was noted to be febrile in the ER. Blood pressure was stable though lower than his home readings of 132. He was 100 systolic in the ER. Creatinine was 4.7 with elevated lactate level and elevated white count. CT of the abdomen and
pelvis were performed with suspicion for pyelonephritis of the transplant. We are asked to assist in management of his renal issues.
Assessment
Sepsis syndrome, possible pyelonephritis
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
donor renal transplant with FSGS, recent T-cell rejection
Obstructive uropathy, Esteves catheter in place
ELIZABETH..
Anemia
Hyponatremia
lactic acidosis
TAVR 04/06/25
LUE arterial oozing
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
Plan
follow BMP, CBC
s/p OR on 04/15-noted gross hematuria from bleeding infeted transplant kidney s/p rt U stent
abx per ID for kleb bacteremia
back on eliquis 04/21 monitor for hematuria
monitor h/h
Despite all of above he has stable renal function cr better than baseline and non oliguric
last belatacept dose was 04/09 (275mg/weight based-monthly dose), continue pred/MMF
tolerating diet
awaiting rehab
-
-
Date of Service: April 26, 2025
CC / HPI / ROS
-
Chief Complaint:
Sepsis
History of Present Illness:
ELIZABETH/Cr at 1.1 stable,
BP stable
Na stable low 132
no gross hematuria
on eliquis for PE
Review of Systems:
non oliguric with esteves
eating well
no cp, no sob at rest
Labs
-
Labs:
WBC 7.0 10^3/uL (4.8-10.8) 04/23/25 08:37
RBC 3.33 10^6/uL (4.70-6.10) L 04/23/25 08:37
Hgb 10.1 g/dL (13.0-18.0) L 04/23/25 08:37
Hct 31.4 % (39.0-52.0) L 04/23/25 08:37
Plt Count 186 10^3/uL (130-400) 04/23/25 08:37
Sodium 132 mmol/L (135-145) L 04/26/25 08:37
Potassium 4.1 mmol/L (3.5-5.1) 04/26/25 08:37
Chloride 102 mmol/L (98-107) 04/26/25 08:37
Carbon Dioxide 24 mmol/L (22-30) 04/26/25 08:37
BUN 32 mg/dl (9-20) H 04/26/25 08:37
Creatinine 1.1 mg/dL (0.7-1.3) 04/26/25 08:37
eGFR > 60.00 04/26/25 08:37
Glucose 101 mg/dl (70-99) H 04/26/25 08:37
Calcium 9.0 mg/dl (8.4-10.2) 04/26/25 08:37
Phosphorus 6.0 mg/dl (2.5-4.5) H 04/10/25 03:02
Jiw-C-Dfuzvrsbspl Pept 08356 pg/ml 04/08/25 16:55
Albumin 2.1 g/dl (3.5-5.0) L 04/11/25 03:29
Physical Exam
-
Vital Signs:
Vital Signs
Temp Pulse Resp BP Pulse Ox
97.4 F 89 20 134/68 100
04/26/25 08:11 04/26/25 08:11 04/26/25 08:11 04/26/25 08:11 04/26/25 08:11
Cardiovascular:: Regular rate and rhythm
Respiratory:: Bilateral: Coarse
Lung Excursion:: Normal
Abdomen:: Nontender and Soft
Bowel Sounds:: Normal
Extremity Edema:: +1: Bilateral:
--- NOTE | 2025-04-26 12:13 | W.PN.ID1 ---
Date of Service
Date of Service: April 26, 2025
Today's Communication
- Continue ceftriaxone 2 gm IV q24 (d11)
- Tomorrow, transition to po cipro 500mg po bid through 04/29.
ID will sign off.
Assessment / Plan
# Gross hematuria, resolved
# New fever 04/14, resolved
# Leukocytosis, resolved
# Complicated transplant kidney UTI/obstructive uropathy
# # Recurrent Klebsiella pneumoniae bacteremia x 3 sets (04/14/25)
- Repeat blood cx's 04/16 and 04/17 neg
- 04/15 s/p OR cysto, successful ureter stent placement.
OR urine cx - K pneumoniae
- Continue ceftriaxone 2 gm IV q24 (d11)
- Tomorrow, transition to po cipro 500mg po bid through 04/29.
ID will sign off.
# hx donor renal txp on immunosuppressive drugs, recent rejection
# Obstructive uropathy of transplant kidney, esteves since 03/15 outpatient
# s/p Recent shock transplant kidney pyelonephritis with Klebsiella and E. faecalis, Klebsiella bacteremia s/p 14d abx (against both org) completed 04/02/25
# s/p cardiogenic shock, respiratory failure intubated 03/21; extubated 03/25/25
# chronic interstitial lung disease
# Severe aortic stenosis s/p TAVR 04/06/25
# ELIZABETH on CKD requiring renal replacement therapy (03/20 - 04/01). ELIZABETH resolving Cr 1.4
# PE (04/04/25), LUE DVT (04/08/25), RUE DVT (04/12/25)
# LUE midforearm hematoma/bleeding from IV catheter attempt (04/09/25). No pseudoaneurysm .
Chief Complaint
-: UTI and Bacteremia
Subjective / Review of Systems
Bed available at [facility].
Feel well.
Vital Signs / Physical Exam
Vital Signs
Vital Signs
Temp Pulse Resp BP Pulse Ox
97.4 F 89 20 134/68 100
04/26/25 08:11 04/26/25 08:11 04/26/25 08:11 04/26/25 08:11 04/26/25 08:11
Physical Exam
Constitutional: No Acute Distress and Comfortable
Cardiovascular: Regular Rate and S1/S2
Pulmonary: Coarse
Gastrointestinal: Soft, Non Tender, Non Distended and Normal Bowel Sounds
Genito-Urinary: Esteves and Clear Urine
Extremities: Negative Edema
Neurological: AO x 3
Objective Data
Lab Data
Lab Results
04/23/25 08:37
04/26/25 08:37
ESR 87 mm/hour (0-20) H 04/11/25 03:29
PT 14.7 Sec (11.4-14.6) H 04/16/25 04:57
INR 1.17 04/16/25 04:57
APTT 28.9 Sec (23.4-35.0) 04/16/25 04:57
Estimated Creat Clear 54 ml/min 04/26/25 08:37
Lactic Acid 2.0 mmol/L (0.7-2.0) 04/14/25 20:51
Total Bilirubin 0.8 mg/dl (0.2-1.3) 04/11/25 03:29
AST 40 U/L (17-59) 04/11/25 03:29
ALT 32 U/L (0-50) 04/11/25 03:29
Alkaline Phosphatase 85 U/L (38-126) 04/11/25 03:29
C-Reactive Protein Cancelled 04/08/25 16:00
Most recent labs reviewed.
Micro Results:
04/17/25 06:15 Blood Culture - Final
Blood/Venous No Growth - Final Report
04/14/25 20:01 Blood Culture - Final
Blood/Venous Klebsiella pneumoniae
Gram Stain - Final
04/16/25 04:57 Blood Culture - Final
Blood/Venous No Growth - Final Report
04/15/25 10:17 Urine Culture - Final
Urine Klebsiella pneumoniae
Klebsiella pneumoniae#2
04/14/25 20:50 Blood Culture - Final
Blood/Venous Klebsiella pneumoniae
Gram Stain - Final
04/14/25 20:01 Blood Culture - Final
Blood/Venous Klebsiella pneumoniae
Gram Stain - Final
04/14/25 20:01 Influenza Types A & B (NOLVIA) - Final
Nasal Swab Negative for Influenza A & B, NAAT
Negative results must be combined with clinical observations
and patient history.
Nucleic Acid Amplification test (NAAT)performed on the
[employer] platform.
04/12/25 08:38 Urine Culture - Final
Urine NO GROWTH
03/20/25 05:07 Blood Culture - Final
Blood/Venous No Growth - Final Report
03/20/25 05:34 Blood Culture - Final
Blood/Venous No Growth - Final Report
03/18/25 18:13 Urine Culture - Final
Urine Klebsiella pneumoniae
Enterococcus faecalis
03/18/25 17:02 Blood Culture - Final
Blood/Venous Klebsiella pneumoniae
Gram Stain - Final
03/18/25 17:01 Blood Culture - Final
Blood/Venous Klebsiella pneumoniae
Gram Stain - Final
03/18/25 23:17 MRSA Screen - Final
Nose No Methicillin Resistant Staphylococcus aureus isolated.
03/18/25 17:03 Influenza Types A & B (NOLVIA) - Final
Nasal Swab Negative for Influenza A & B, NAAT
Negative results must be combined with clinical observations
and patient history.
Nucleic Acid Amplification test (NAAT)performed on the
[employer] platform.
04/15/25 CT a/p:
1. Severe hydronephrosis of transplant kidney, unchanged.
2. Very small volume of gas within the transplant renal collecting system, decreased as compared with the previous exam. As above, there is gas in the transplant ureter including along the anastomosis with the urinary bladder, therefore both
infection and gas related to Esteves catheter remain considerations.
3. Fluid fluid level within the renal transplant collecting system. This could be related to excretion of contrast from previous procedure. Hemorrhage is also possible.
4. Bilateral small pleural effusions. Pulmonary fibrosis as seen previously. Decreased pneumomediastinum.
5. Small left groin hematoma related to previous transcatheter aortic valve replacement.
6. Dilated gallbladder. No abnormal wall thickening or pericholecystic fluid identified.
04/14/25 CXR: Stable diffuse interstitial prominence likely reflects underlying chronic interstitial lung disease
04/12/25 LUE arterial study: Patent left radial artery with no evidence of pseudoaneurysm. Previously visualized area of abnormality in the mid radial artery is not seen on today's examination
04/09/25 LUE Angio: Small foci of extravasated contrast material seen within the soft tissues at the level of the mid forearm adjacent to the radial artery. Consistent with mild active hemorrhage. Generalized edema. A focal soft tissue collection is
difficult to identify with certainty.
03/31/25 CXR: Slightly improved pulmonary interstitial markings suggesting resolving interstitial edema. Pneumomediastinum without significant change.
03/28/[address]: Mild pneumomediastinum, with superior extension into the fat at the base of the neck, as well as at the posterior and lateral aspect of the right mid to upper thorax. Diffuse bilateral interstitial and groundglass opacity. This
could be related to fluid associated with interstitial and pulmonary edema related to volume overload or congestive heart failure. Alternatively, findings may be infectious in nature related to atypical or viral pneumonitis. No focal dense
consolidation.
03/20/25 CXR: Grossly stable severe diffuse bilateral interstitial and airspace disease which may reflect combination of pulmonary edema and pneumonia. Cannot rule out component of underlying chronic interstitial lung disease.
03/19/25 CXR: Progressive parenchymal disease process, as described. Differential includes progressive congestive heart failure with pulmonary edema versus diffuse bilateral pneumonia, right greater than left.
03/18/25 CT a/p: Severe acute edema and inflammation around the right lower quadrant renal transplant which is new from 12/17/2024. Severe hydronephrosis of the right intrarenal collecting system and right renal pelvis which has increased. ACUTE
PYELONEPHRITIS of the RIGHT LOWER QUADRANT RENAL TRANSPLANT is considered most likely. Acute infarction of the renal transplant is a less likely diagnostic possibility. Severe diffuse urinary bladder wall thickening with surrounding perivesical
inflammation which appears new from 12/17/2024 suggesting SEVERE ACUTE CYSTITIS. Esteves catheter in the urinary bladder. Mildly enlarged prostate gland.
[2025-04-26 12:23] LABS: Glucose - Point of Care 112 mg/dl (70-99)
[2025-04-26] MEDS: STERILE WATER FOR INJECTION 20 ML IV (13:21)
[2025-04-26] MEDS: ROCEPHIN 2000 MG IV (13:21)
[2025-04-26] MEDS: VALIUM 2 MG PO ×2 (13:33→22:51)
--- NOTE | 2025-04-26 13:41 | W.PN.HOSP.TC ---
Addendum entered and electronically signed by Uriel Snow MD 04/26/25 13:45:
Additionally, should be noted when I spoke with Ms. Florentino over the phone. And discussed that he is medically cleared for discharge and he would be going to a rehab facility that has a open bed. And we cannot keep him in the hospital awaiting a
bed at [facility] if there is a bed somewhere else for rehab in the community then we would have to discharge him to that facility. She became tearful angry I agree. She even threatened that she will call her air tester to get them involved. I
informed her she is more than welcome to call her air tester however that does not change that he is medically cleared for discharge and if we do have a bed at a rehab facility in the community then we will have to discharge him.
Original Note:
Today's Communication/Plan
-
Assessment / Plan
Assessment / Plan
Assessment/Plan
79-year-old with history of end-stage renal disease status post kidney transplant 2019 on antirejection medications, hypertension, hyperlipidemia, atrial fibrillation on Eliquis, urinary retention status post catheter placement several days prior to
admission presenting to the emergency department with fever and chills as well as weakness, admitted for sepsis secondary to transplant pyelonephritis, acute renal failure of transplanted kidney with development of acute hypoxic respiratory failure,
inability to tolerate HD secondary to severe and now s/p TAVR 04/06.

Severe aortic stenosis with cardiogenic shock status post TAVR on 04/06
- RHC 03/30 indicated aortic stenosis as source of low cardiac output/cardiogenic shock.
- s/p cardiac cath 04/02/25 - non-obstructive CAD
- Decision made for more urgent TAVR
- Post TTE shows stable valve, normal gradients, no effusion.
- Cardiology signed off
- DW Dr Larios 04/22 - recommends only AC and dc Aspirin going forward
ELIZABETH requiring hemodialysis
Renal transplant
Creatinine stable at 1.4 ;nonoliguric. Holding on further hemodialysis and following clinically.
Continue with pred/MMF
Hydronephrosis of transplanted kidney
- Obstructive uropathy of transplant kidney, Esteves placed 03/15/25
- Maintain Esteves catheter .No hematuria
-S/P cystoscopy and stent placement
- DC esteves when ok from urology
Acute hypoxic respiratory failure requiring intubation 03/21-03/25
Bilateral small pleural effusions and as seen on previous imaging, pulmonary fibrosis
Resolved
Septic shock associated with acute kidney injury, lactic acidosis secondary to Klebsiella bacteremia likely secondary to urinary tract infection
Transplant kidney pyelonephritis with Klebsiella and E. faecalis
Immunosuppressed
Resolved
CW ABX per ID - on Ceftriaxone now
Pulmonary embolus within the posterior left lower lobe segmental pulmonary artery on CT Chest on 04/04/25
Short-segment left axillary vein thrombus
-Seen on CT Chest done in preparation for aortic valve surgery
-AC on hold due to bleeding issues
-Back on AC
Nonocclusive thrombus within the right cephalic vein within the distal aspect of the upper arm
Occlusive thrombus within the cephalic vein in the proximal forearm
-Conservative management for superficial venous thrombosis
Left Upper Extremity Hematoma
Likely contained pseudoaneurysm -- status post left mid forearm A-line placement, then forearm swelling, then found to have likely contained pseudoaneurysm based on imaging
-arterial US/angiogram 04/09/25 with active extravasation in left forearm with associated hematoma
-appreciate Vascular surgery input - based on comorbidities/skin tissue integrity trying to avoid surgical intervention - continue karl bandage wrap and compression
-Repeat arterial duplex 04/12/25 -- with no evidence of active extravasation or pseudoaneurysm
-Continue karl wrap for gentle compression at the LUE -- edema has improved
-Continue PRN dressing change for forearm skin tear
Acute blood loss anemia secondary to multiple sources: LUE hematoma, melena , hematuria , epistaxis
-So far, patient has received 10 units of red blood cells this hospitalization (10th one was given in OR on 04/15/25)
-H&H stable
Thrombocytopenia
-HIT panel testing was negative
-appreciate Heme eval
-Normalized platelet
Acute blood loss anemia with baseline chronic macrocytic anemia
Melena on 04/11-04/12
Epistaxis
Hematuria developed on 04/11/25-04/12/25
-Status post total of 10 units of PRBCs so far (10th unit was given perioperatively on 04/15/25)
-GI saw patient on 04/12/25, no endoscopy given current patient's current condition, GI has signed off
-Continue PPI BID
Permanent Atrial Fibrillation
- Rate controlled
-cw Eliquis
-Continue with beta-armando
Hypertension
-Home Amlodipine 5 mg daily resumed on 04/13/25
-Holding Losartan for now given tenuous kidney situation with urinary bleeding
Sacrum Stage 2 Pressure Injury
-Wound care
Resolved issues
TME
Epistaxis
Ex-Smoker
DVT Prophylaxis: SCDs only given bleeding.
Diet: Tolerating oral diet
Code status - Full Code
PMR agree with acute rehab
Medically stable for DC
Ms. Florentino will need 1C send Johann to [facility] rehab. Does not want to go to any other facilities. Is not interested in [place] rehab at [place] or [facility] in [place]
Anticipated Discharge: 24 - 48 hours
Subjective/Interval History
-
Date of Service: April 26, 2025
Seen and examined. No new complaints. No acute overnight events.
Objective Data
-
Labs:
Laboratory Results
04/26/25
08:37
Sodium 132 L
Potassium 4.1
Chloride 102
Carbon Dioxide 24
BUN 32 H
Creatinine 1.1
Glucose 101 H
Calcium 9.0
Vital Signs:
Vital Signs
Temp Pulse Resp BP Pulse Ox
97.4 F 89 20 134/68 100
04/26/25 08:11 04/26/25 08:11 04/26/25 08:11 04/26/25 08:11 04/26/25 08:11
I&O
04/25/25 04/26/25 04/27/25
06:59 06:59 06:59
Intake Total 120 / 120 900 / 900
Output Total 1500 / 1500 1150 / 1150
Balance -1380 / -1380 -250 / -250
Physical Exam
-
General: Well Developed, Well Nourished and No Apparent Distress
HEENT: Normocephalic and Atraumatic
Respiratory: Clear to Auscultation
Cardiac: Regular Rhythm and S1/S2
GI: Soft, Nontender, Nondistended and Normal Bowel Sounds
Genito-urinary: Clear Urine and Esteves
Musculoskeletal: No Clubbing and No Edema
Skin: Warm and Dry
Neuro: Awake and AO x 3
Psych: Calm
[2025-04-26 15:40] VITALS: BP 142/65
[2025-04-26 17:39] LABS: Glucose - Point of Care 140 mg/dl (70-99)
[2025-04-26] MEDS: REMOVE LIDOCAINE PATCH 1 PATCH REMOVE (20:28)
[2025-04-26 22:49] LABS: Glucose - Point of Care 126 mg/dl (70-99)
[2025-04-26] MEDS: MELATONIN 5 MG PO (22:51)
[2025-04-26 23:00] VITALS: BP 126/106
[2025-04-27] MEDS: OCEAN, SALINE MIST NASAL ×2 (01:04→15:03)
[2025-04-27 05:43] VITALS: BMI 21.1
[2025-04-27 08:11] LABS: Glucose - Point of Care 162 mg/dl (70-99)
[2025-04-27 08:26] VITALS: BP 178/87
[2025-04-27] MEDS: NOVOLOG FLEXPEN-LOW RESISTANCE 1 UNITS SC (08:28)
[2025-04-27] MEDS: CELLCEPT 1000 MG PO (08:28)
[2025-04-27] MEDS: NORVASC 5 MG PO (08:29)
[2025-04-27] MEDS: LIDOCAINE 4% PATCH 1 PATCH TOPICAL (08:30)
[2025-04-27] MEDS: PROTONIX 40 MG PO (08:30)
[2025-04-27] MEDS: DELTASONE 2.5 MG PO (08:30)
[2025-04-27] MEDS: CIPRO 500 MG PO (08:30)
[2025-04-27] MEDS: ELIQUIS 5 MG PO (08:30)
[2025-04-27] MEDS: LOPRESSOR 25 MG PO (08:30)
[2025-04-27] MEDS: MIRALAX 17 GRAMS PO (08:31)
[2025-04-27] MEDS: OCEAN, SALINE MIST 50 SPRAYS NASAL (08:32)
[2025-04-27] MEDS: SENOKOT-S 1 TABLET PO (08:32)
[2025-04-27] MEDS: HYDROPHOR 1 APPLIC TOPICAL (08:35)
[2025-04-27] MEDS: DESENEX/MITRAZOL/ZEASORB 1 APPLIC TOPICAL (08:37)
[2025-04-27 08:41] LABS: Hematocrit 31.8 % (39.0-52.0); Hemoglobin 10.3 g/dL (13.0-18.0); Mean Corp Hgb Conc. 32.4 g/dL (33.0-37.0); Mean Corpuscular Volume 96.1 fL (80.0-94.0); Platelet Count 158 10^3/uL (130-400); Red Cell Dist. Width 15.8 % (11.5-14.5)
[2025-04-27] MEDS: VALIUM 2 MG PO (08:47)
[2025-04-27 09:02] LABS: Blood Urea Nitrogen 29 mg/dl (9-20); Calcium 9.2 mg/dl (8.4-10.2); Carbon Dioxide 25 mmol/L (22-30); Chloride 103 mmol/L (98-107); Estimated Creatinine Clearance 54 ml/min; Glucose 104 mg/dl (70-99); Potassium 4.0 mmol/L (3.5-5.1); Sodium 133 mmol/L (135-145); eGFR > 60.00
--- NOTE | 2025-04-27 10:26 | CM ---
NOHELIA reviewed chart, reviewed with [facility] liaison, able to accept patient for [place] location.
Phone call to patients , Beata. Discussed d.c plan. IMM verbally reviewed, placed in chart.
Update to Nurse, [facility] will have room ready around 1:00 p.m.
NOHELIA will continue to follow.
Aide; [facility]
MARCELO Bragg
Report: [phone]
[2025-04-27 11:09] LABS: Nucleated Red Blood Cells % 0 % (-)
[2025-04-27 11:20] LABS: Glucose - Point of Care 143 mg/dl (70-99)
[2025-04-27] MEDS: NOVOLOG FLEXPEN-LOW RESISTANCE SC ×2 (11:47→17:20)
--- NOTE | 2025-04-27 12:24 | W.PN.NEPH.PH ---
Today's Communication / Plan
-
rehab
Assessment/Plan
-
This is a 79-year-old gentleman who follows in our office with Dr. Muhammad after donor renal transplant 2018 from [facility]. His transplant course has been complicated by development of nephrotic range proteinuria as well as recent
cellular rejection December of this year. The episodes treated with Solu-Medrol. His creatinine has risen quickly over time in the last several months. He has gone from a creatinine around 2 now up to 4.4. He was noted to have hydronephrosis of
the transplanted kidney recently on ultrasound as well as CT scan. Esteves catheter was placed by urology a few days ago. His appetite has been poor as of late. Recently he also developed fever and malaise and this has brought him to the emergency
room. He was noted to be febrile in the ER. Blood pressure was stable though lower than his home readings of 132. He was 100 systolic in the ER. Creatinine was 4.7 with elevated lactate level and elevated white count. CT of the abdomen and
pelvis were performed with suspicion for pyelonephritis of the transplant. We are asked to assist in management of his renal issues.
Assessment
Sepsis syndrome, possible pyelonephritis
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
donor renal transplant with FSGS, recent T-cell rejection
Obstructive uropathy, Esteves catheter in place
ELIZABETH..
Anemia
Hyponatremia
lactic acidosis
TAVR 04/06/25
LUE arterial oozing
[employer]-He had been making outpatient arrangements for eventual ESRD and transplant evaluation at [facility]/previously on peritoneal dialysis prior to transfer
Plan
follow BMP, CBC
s/p OR on 04/15-noted gross hematuria from bleeding infeted transplant kidney s/p rt U stent
abx per ID for kleb bacteremia CTX
back on eliquis 04/21 monitor for hematuria
monitor h/h
Despite all of above he has stable renal function cr better than baseline and non oliguric
last belatacept dose was 04/09 (275mg/weight based-monthly dose), next dose ~05/09
continue pred/MMF
tolerating diet
awaiting rehab
-
-
Date of Service: April 27, 2025
CC / HPI / ROS
-
Chief Complaint:
Sepsis
History of Present Illness:
ELIZABETH/Cr at 1.1 stable,
BP stable
Na stable low 133
no gross hematuria
on eliquis for PE
Review of Systems:
non oliguric with esteves
no cp, no sob at rest
Labs
-
Labs:
WBC 8.0 10^3/uL (4.8-10.8) 04/27/25 08:17
RBC 3.31 10^6/uL (4.70-6.10) L 04/27/25 08:17
Hgb 10.3 g/dL (13.0-18.0) L 04/27/25 08:17
Hct 31.8 % (39.0-52.0) L 04/27/25 08:17
Plt Count 158 10^3/uL (130-400) 04/27/25 08:17
Sodium 133 mmol/L (135-145) L 04/27/25 08:17
Potassium 4.0 mmol/L (3.5-5.1) 04/27/25 08:17
Chloride 103 mmol/L (98-107) 04/27/25 08:17
Carbon Dioxide 25 mmol/L (22-30) 04/27/25 08:17
BUN 29 mg/dl (9-20) H 04/27/25 08:17
Creatinine 1.1 mg/dL (0.7-1.3) 04/27/25 08:17
eGFR > 60.00 04/27/25 08:17
Glucose 104 mg/dl (70-99) H 04/27/25 08:17
Calcium 9.2 mg/dl (8.4-10.2) 04/27/25 08:17
Phosphorus 6.0 mg/dl (2.5-4.5) H 04/10/25 03:02
Ooe-J-Niuolymiwuk Pept 82127 pg/ml 04/08/25 16:55
Albumin 2.1 g/dl (3.5-5.0) L 04/11/25 03:29
Physical Exam
-
Vital Signs:
Vital Signs
Temp Pulse Resp BP Pulse Ox
97.7 F 82 16 178/87 99
04/27/25 08:26 04/27/25 08:26 04/27/25 08:26 04/27/25 08:29 04/27/25 08:26
Cardiovascular:: Regular rate and rhythm
Respiratory:: Bilateral: Coarse
Lung Excursion:: Normal
Abdomen:: Nontender and Soft
Bowel Sounds:: Normal
Extremity Edema:: None: Bilateral:
--- NOTE | 2025-04-27 13:17 | W.PN.HOSP.TC ---
Today's Communication/Plan
-
DC to [facility].
Assessment / Plan
Assessment / Plan
Assessment/Plan
79-year-old with history of end-stage renal disease status post kidney transplant 2019 on antirejection medications, hypertension, hyperlipidemia, atrial fibrillation on Eliquis, urinary retention status post catheter placement several days prior to
admission presenting to the emergency department with fever and chills as well as weakness, admitted for sepsis secondary to transplant pyelonephritis, acute renal failure of transplanted kidney with development of acute hypoxic respiratory failure,
inability to tolerate HD secondary to severe and now s/p TAVR 04/06.

General: Well Developed, Well Nourished and No Apparent Distress
HEENT: Normocephalic and Atraumatic
Respiratory: Clear to Auscultation
Cardiac: Regular Rhythm and S1/S2
GI: Soft, Nontender, Nondistended and Normal Bowel Sounds
Genito-urinary: Clear Urine and Disla
Musculoskeletal: No Clubbing and No Edema
Skin: Warm and Dry
Neuro: Awake and AO x 3
Psych: Calm

Severe aortic stenosis with cardiogenic shock status post TAVR on 04/06
- RHC 03/30 indicated aortic stenosis as source of low cardiac output/cardiogenic shock.
- s/p cardiac cath 04/02/25 - non-obstructive CAD
- Decision made for more urgent TAVR
- Post TTE shows stable valve, normal gradients, no effusion.
- Cardiology signed off
- KARON Larios 04/22 - recommends only AC and dc Aspirin going forward
ELIZABETH requiring hemodialysis
Renal transplant
Creatinine stable at 1.4 ;nonoliguric. Holding on further hemodialysis and following clinically.
Continue with pred/MMF
Hydronephrosis of transplanted kidney
- Obstructive uropathy of transplant kidney, Disla placed 03/15/25
- Maintain Disla catheter .No hematuria
-S/P cystoscopy and stent placement
- Disla remains in place had to be reinserted
Acute hypoxic respiratory failure requiring intubation 03/21-03/25
Bilateral small pleural effusions and as seen on previous imaging, pulmonary fibrosis
Resolved
Septic shock associated with acute kidney injury, lactic acidosis secondary to Klebsiella bacteremia likely secondary to urinary tract infection
Transplant kidney pyelonephritis with Klebsiella and E. faecalis
Immunosuppressed
Resolved
CW ABX per ID - on Ceftriaxone now
Pulmonary embolus within the posterior left lower lobe segmental pulmonary artery on CT Chest on 04/04/25
Short-segment left axillary vein thrombus
-Seen on CT Chest done in preparation for aortic valve surgery
-AC on hold due to bleeding issues
-Back on AC
Nonocclusive thrombus within the right cephalic vein within the distal aspect of the upper arm
Occlusive thrombus within the cephalic vein in the proximal forearm
-Conservative management for superficial venous thrombosis
Left Upper Extremity Hematoma
Likely contained pseudoaneurysm -- status post left mid forearm A-line placement, then forearm swelling, then found to have likely contained pseudoaneurysm based on imaging
-arterial US/angiogram 04/09/25 with active extravasation in left forearm with associated hematoma
-appreciate Vascular surgery input - based on comorbidities/skin tissue integrity trying to avoid surgical intervention - continue karl bandage wrap and compression
-Repeat arterial duplex 04/12/25 -- with no evidence of active extravasation or pseudoaneurysm
-Continue karl wrap for gentle compression at the LUE -- edema has improved
-Continue PRN dressing change for forearm skin tear
Acute blood loss anemia secondary to multiple sources: LUE hematoma, melena , hematuria , epistaxis
-So far, patient has received 10 units of red blood cells this hospitalization (10th one was given in OR on 04/15/25)
-H&H stable
Thrombocytopenia
-HIT panel testing was negative
-appreciate Heme eval
-Normalized platelet
Acute blood loss anemia with baseline chronic macrocytic anemia
Melena on 04/11-04/12
Epistaxis
Hematuria developed on 04/11/25-04/12/25
-Status post total of 10 units of PRBCs so far (10th unit was given perioperatively on 04/15/25)
-GI saw patient on 04/12/25, no endoscopy given current patient's current condition, GI has signed off
-Continue PPI BID
Permanent Atrial Fibrillation
- Rate controlled
-cw Eliquis
-Continue with beta-armando
Hypertension
-Home Amlodipine 5 mg daily resumed on 04/13/25
-Holding Losartan for now given tenuous kidney situation with urinary bleeding
Sacrum Stage 2 Pressure Injury
-Wound care
Resolved issues
TME
Epistaxis
Ex-Smoker
DVT Prophylaxis: SCDs only given bleeding.
Diet: Tolerating oral diet
Code status - Full Code
PMR agree with acute rehab
Medically stable for DC
Ms. Florentino will need 1C send Johann to [facility] rehab. Does not want to go to any other facilities. Is not interested in [facility] [place] or [facility] in [place]
Anticipated Discharge: Today
Subjective/Interval History
-
Date of Service: April 27, 2025
Seen and examined. No new complaints. No acute overnight events.
Objective Data
-
Labs:
Laboratory Results
04/27/25
08:17
WBC 8.0
Hgb 10.3 L
Hct 31.8 L
Plt Count 158
Sodium 133 L
Potassium 4.0
Chloride 103
Carbon Dioxide 25
BUN 29 H
Creatinine 1.1
Glucose 104 H
Calcium 9.2
Vital Signs:
Vital Signs
Temp Pulse Resp BP Pulse Ox
97.7 F 82 16 178/87 99
04/27/25 08:26 04/27/25 08:26 04/27/25 08:26 04/27/25 08:29 04/27/25 08:26
I&O
04/26/25 04/27/25 04/28/25
06:59 06:59 06:59
Intake Total 900 / 900 840 / 840
Output Total 1150 / 1150 1600 / 1600
Balance -250 / -250 -760 / -760
[2025-04-27] MEDS: ROXICODONE 5 MG PO (13:40)
[2025-04-27] MEDS: ROCEPHIN 2000 MG IV (13:42)
[2025-04-27] MEDS: STERILE WATER FOR INJECTION 20 ML IV (13:42)
[2025-04-27 15:00] VITALS: BP 157/82
[2025-04-27 17:17] LABS: Glucose - Point of Care 101 mg/dl (70-99)
[2025-04-27 19:10] LABS: Glucose - Point of Care 96 mg/dl (70-99)
--- NOTE | 2025-04-29 15:18 | W.DCSUMMARY ---
Discharge Summary
Discharge Data
Date of Admission: 03/18/25
Date of Discharge: 04/27/25
-
Pending Results: No
Hospital Course
79 male s/p renal transplant, ILD, BPH, hypertension, permanent atrial fibrillation, who presented with fever malaise found to be hypotensive and elevated renal function. CT was concerning for pyelonephritis of transplanted kidney. Disla catheter
was placed was evaluated by urology for obstructive uropathy s/p cystoscopy and stent placement. Required hemodialysis. Subsequently developed septic shock ELIZABETH with Klebsiella bacteremia and Enterococcus faecalis. Evaluated by infectious diseases
started on Rocephin. Unfortunately, hospital course was further complicated by acute hypoxemic respiratory failure requiring intubation eventually extubated. S/p left heart cath 04/02/2025 nonobstructive CAD. PE within the posterior left lobe
segmental pulmonary artery on CT chest. Eventually developed hematuria dysuria was taken off of anticoagulant and was put back on it. Was evaluated by physical therapy recommending SNF.
Discharge Plan
-
Patient Disposition: Acute Rehab Facility
Discharge Diagnosis/Procedures: TF-TAVR
Activity: As tolerated
Driving Restrictions: No driving for 1 week
Bathing Restrictions: OK to Shower
Others Tests: Follow up echocardiogram is scheduled for you at [facility] on 05/10/2025 at 9:20am.
Other Services: Cardiac Rehab
Wound Care: Please do not apply lotions, creams or powders to groin areas. Please monitor for increased pain, swelling, redness or drainage. Notify your doctor if any occur.
Specialty Instructions: Weigh Daily- Call MD for wt gain/loss 3 lbs overnight/5 lbs in 1 week
Activity Restrictions/Additional Instructions:
Wound Care Instructions Sacrum- Clean with normal saline, apply felisa thick layer of Santyl to necrotic appearing wounds and cover with adaptic and silicone border foam. Change daily and PRN drainage.
Follow up at wound care center call for an appointment.
Please call to make appointments for Phase II Cardiac Rehab (When PT/OT/Nursing/ SNF are no longer needed)- info placed in chart
1) [facility]
[phone]
Referrals:
Foreign Tesfaye MD [Active, Gastroenterology] - in two weeks
Rhea Irene CRNP [Specified Professional Personl, Cardiology] - 05/14/25 11:20 am
Uriel Maloney MD [Active, Pulmonary Medicine]
Referral Note: As scheduled
Neville Kam MD [Family Provider, Internal Medicine]
Rafita Jim Jr., MD [Active, Urology] - in two weeks
Liliana Cabrera MD [Active, Cardiac Surgery] - in two to three weeks
Prescriptions:
New
Chloraseptic Sore Throat 6-10 mg Lozenge
1 consuelo PO Q4HPRN PRN (Reason: sorethroat) Qty: 18 0RF
miconazole nitrate [Miconazorb AF] 2 % Powder
1 applic topical BID Qty: 71 0RF
ciprofloxacin HCl 500 mg Tablet
500 mg PO BID 2 Days Qty: 4 0RF
Rx Instructions:
direction state for two days
sennosides-docusate sodium [Senna Plus] 8.6-50 mg Tablet
1 tab PO BID Qty: 30 0RF
pantoprazole 40 mg Tablet,Delayed Release (Dr/Ec)
40 mg PO BID Qty: 20 0RF
Continued
Eliquis 5 MG tablet
5 mg PO BID
metoprolol tartrate 25 MG tablet
25 mg PO BID
mycophenolate sodium 180 MG tablet,delayed release (DR/EC)
720 mg PO BID
amlodipine 5 mg tablet
5 mg PO DAILY
cholecalciferol (vitamin D3) [Vitamin D3] 10 mcg (400 unit) Capsule
10 mcg PO DAILY
losartan 50 mg Tablet
50 mg PO BID
therapeutic multivitamin Tablet
1 tab PO DAILY
prednisone 2.5 mg Tablet
2.5 mg PO BID
doxazosin 2 mg Tablet
2 mg PO BID
belatacept 250 mg Recon Soln
450 mg IV QMONTH
torsemide 5 mg Tablet
5 mg PO SUWE
fluticasone propionate 50 mcg/actuation [place],Suspension
1 spray INTRANASAL BID
sodium chloride 0.65 % Aerosol,[place]
2 spray INTRANASAL QID
Discharge Orders:
Discharge Patient (As Directed); Ordered 04/27/25
Ordered By: Uriel Snow
Care Plan Goals
Care Plan Goals:
Problem: Readiness for enhanced knowledge related to diagnosis and treatment plan
Goal: Understand your diagnosis and treatment plan needs, including medications if applicable.
Instructions: Know your diagnosis, underlying causes and treatment plan options, including medications if applicable. Consult with your health care team to learn about your diagnosis and treatment plan, including medications if applicable.
Discharge Date and Time
Discharge Date/Time: 04/27/25 17:46
Print Language: LATVIAN
== END 2025-04-27 17:46 | DRG 659 ==
LOC: 4 WEST ACU 19:48
PROVIDERS: Hospitalist; Internal Medicine; Internal Medicine Cardiovascular Disease; Internal Medicine Critical Care Medicine; Internal Medicine Hematology & Oncology; Internal Medicine Nephrology; Nurse Practitioner; Nurse Practitioner Acute Care; Nurse Practitioner Family; Nurse Practitioner Primary Care; Physician Assistant Medical; Radiology Diagnostic Radiology; Radiology Vascular & Interventional Radiology; Registered Nurse; Specialist; Student in an Organized Health Care Education/Training Program; ADMITTING PHYSICIAN Internal Medicine; ATTENDING PHYSICIAN Hospitalist; CONSULT PHYSICIAN Internal Medicine Cardiovascular Disease; CONSULT PHYSICIAN Internal Medicine Critical Care Medicine; CONSULT PHYSICIAN Internal Medicine Infectious Disease; CONSULT PHYSICIAN Physical Medicine & Rehabilitation; CONSULT PHYSICIAN Specialist; CONSULT PHYSICIAN Student in an Organized Health Care Education/Training Program; EMERGENCY PHYSICIAN Emergency Medicine; FAMILY PHYSICIAN Internal Medicine; OTHER PHYSICIAN Internal Medicine Gastroenterology; OTHER PHYSICIAN Internal Medicine Hematology & Oncology; OTHER PHYSICIAN Surgery Vascular Surgery
PROC: 30233N1 Transfusion of Nonautologous Red Blood Cells into Peripheral Vein, Percutaneous Approach (ICD-10-PCS; 2025-03-19)
PROC: 02HV33Z Insertion of Infusion Device into Superior Vena Cava, Percutaneous Approach (ICD-10-PCS; 2025-03-20)
PROC: 5A1D70Z Performance of Urinary Filtration, Intermittent, Less than 6 Hours Per Day (ICD-10-PCS; 2025-03-20)
PROC: 0BH17EZ Insertion of Endotracheal Airway into Trachea, Via Natural or Artificial Opening (ICD-10-PCS; 2025-03-21)
PROC: 5A1945Z Respiratory Ventilation, 24-96 Consecutive Hours (ICD-10-PCS; 2025-03-21)
PROC: 2Y41X5Z Packing of Nasal Region using Packing Material (ICD-10-PCS; 2025-03-24)
PROC: 03HY32Z Insertion of Monitoring Device into Upper Artery, Percutaneous Approach (ICD-10-PCS; 2025-03-25)
PROC: 5A1D90Z Performance of Urinary Filtration, Continuous, Greater than 18 hours Per Day (ICD-10-PCS; 2025-03-29)
PROC: 4A023N6 Measurement of Cardiac Sampling and Pressure, Right Heart, Percutaneous Approach (ICD-10-PCS; 2025-03-30)
PROC: 02H633Z Insertion of Infusion Device into Right Atrium, Percutaneous Approach (ICD-10-PCS; 2025-04-01)
PROC: 02PY33Z Removal of Infusion Device from Great Vessel, Percutaneous Approach (ICD-10-PCS; 2025-04-01)
PROC: 4A023N7 Measurement of Cardiac Sampling and Pressure, Left Heart, Percutaneous Approach (ICD-10-PCS; 2025-04-02)
PROC: B2111ZZ Fluoroscopy of Multiple Coronary Arteries using Low Osmolar Contrast (ICD-10-PCS; 2025-04-02)
PROC: 0W360ZZ Control Bleeding in Neck, Open Approach (ICD-10-PCS; 2025-04-04)
PROC: 02RF38Z Replacement of Aortic Valve with Zooplastic Tissue, Percutaneous Approach (ICD-10-PCS; 2025-04-06)
PROC: 30233R1 Transfusion of Nonautologous Platelets into Peripheral Vein, Percutaneous Approach (ICD-10-PCS; 2025-04-09)
PROC: 0T768DZ Dilation of Right Ureter with Intraluminal Device, Via Natural or Artificial Opening Endoscopic (ICD-10-PCS; 2025-04-15)
PROC: 0T5B8ZZ Destruction of Bladder, Via Natural or Artificial Opening Endoscopic (ICD-10-PCS; 2025-04-15)
DX: T86.13 Kidney transplant infection (principal); Z00.6 Encounter for examination for normal comparison and control in clinical research program; A41.59 Other Gram-negative sepsis; N18.6 End stage renal disease; J96.01 Acute respiratory failure with hypoxia; R65.21 Severe sepsis with septic shock; R57.0 Cardiogenic shock; I26.99 Other pulmonary embolism without acute cor pulmonale; G92.8 Other toxic encephalopathy; J81.0 Acute pulmonary edema; I48.21 Permanent atrial fibrillation; N13.6 Pyonephrosis; I13.2 Hypertensive heart and chronic kidney disease with heart failure and with stage 5 chronic kidney disease, or end stage renal disease; N17.9 Acute kidney failure, unspecified; E87.1 Hypo-osmolality and hyponatremia; E87.20 Acidosis, unspecified; D84.9 Immunodeficiency, unspecified; R64 Cachexia; D62 Acute posthemorrhagic anemia; T82.838A Hemorrhage due to vascular prosthetic devices, implants and grafts, initial encounter; I82.A12 Acute embolism and thrombosis of left axillary vein; T82.49XA Other complication of vascular dialysis catheter, initial encounter; K92.1 Melena; I82.611 Acute embolism and thrombosis of superficial veins of right upper extremity; I82.622 Acute embolism and thrombosis of deep veins of left upper extremity; N25.81 Secondary hyperparathyroidism of renal origin; I35.0 Nonrheumatic aortic (valve) stenosis; T86.12 Kidney transplant failure; T86.19 Other complication of kidney transplant; Y83.0 Surgical operation with transplant of whole organ as the cause of abnormal reaction of the patient, or of later complication, without mention of misadventure at the time of the procedure; D53.9 Nutritional anemia, unspecified; N40.0 Benign prostatic hyperplasia without lower urinary tract symptoms; E78.00 Pure hypercholesterolemia, unspecified; B96.1 Klebsiella pneumoniae [K. pneumoniae] as the cause of diseases classified elsewhere; R31.0 Gross hematuria; R04.0 Epistaxis; J84.89 Other specified interstitial pulmonary diseases; D69.59 Other secondary thrombocytopenia; E83.51 Hypocalcemia; J34.2 Deviated nasal septum; Y82.8 Other medical devices associated with adverse incidents; I72.1 Aneurysm of artery of upper extremity; N32.89 Other specified disorders of bladder; R33.9 Retention of urine, unspecified; N32.3 Diverticulum of bladder; R13.10 Dysphagia, unspecified; S40.022A Contusion of left upper arm, initial encounter; G89.29 Other chronic pain; I25.10 Atherosclerotic heart disease of native coronary artery without angina pectoris; U09.9 Post COVID-19 condition, unspecified; K76.0 Fatty (change of) liver, not elsewhere classified; L89.152 Pressure ulcer of sacral region, stage 2; M81.0 Age-related osteoporosis without current pathological fracture; R91.1 Solitary pulmonary nodule; Z99.2 Dependence on renal dialysis; Z11.52 Encounter for screening for COVID-19; Z79.01 Long term (current) use of anticoagulants; Z87.891 Personal history of nicotine dependence; Z87.442 Personal history of urinary calculi; Z68.20 Body mass index [BMI] 20.0-20.9, adult
CPT/HCPCS: 33361; 36556; 36580; 36600; 71045; 71046; 71250; 73206; 74018; 74174; 74176; 74230; 74420; 75572; 76000; 76380; 76937; 77001; 80048; 80053; 80069; 80076; 80202; 81003; 81015; 82247; 82248; 82330; 82607; 82668; 82728; 82746; 82805; 82962; 83036; 83540; 83550; 83605; 83615; 83735; 83880; 84100; 84132; 84302; 84425; 84478; 85014; 85018; 85025; 85027; 85045; 85049; 85347; 85379; 85384; 85610; 85652; 85730; 86022; 86140; 86704; 86706; 86803; 86850; 86900; 86901; 86920; 87040; 87070; 87077; 87086; 87154; 87186; 87205; 87340; 87502; 87811; 92526; 92610; 92611; 92612; 93005; 93306; 93308; 93321; 93325; 93451; 93458; 93926; 93970; 93971; 94002; 94003; 94640; 96361; 96365; 96366; 96375; 97110; 97112; 97163; 97167; 97530; 97535; 99152; 99153; 99291; A4300; C1752; C1760; C1769; C1894; G0257; J0485; J0883; P9016; P9047; P9073; Q5106; Q9967